=== PATIENT | female | born 1955 | race Caucasian/White ===

== ENCOUNTER → 2016-11-24 | Outpatient (CLI) | payer OTHER ==
[~2016-11-24] MED LIST: CHOL200010 PO; CITA10TA8 PO; CITA20TA4 PO; CMD5 PO; ENOX60IN SQ; LANS15CA27 PO; LVNIS80 SC; PANT40TA PO; PROP10TA54 PO; PROP10TA7 PO; PRT40 PO; WARF5TAB90 PO; WARF6TAB PO; WARF7.5T PO; [UNRECOGNIZED DRUG - CODE] PO; [UNRECOGNIZED DRUG - CODE] PO; [UNRECOGNIZED DRUG - CODE] PO
--- NOTE | 2016-11-24 11:39 | DIAGNOSTIC IMAGING REPORT ---
Limited splenic ultrasound (SPLEEN) ABD LTD CLINICAL HISTORY: COMPARATIVE SPLENIC MEASUREMENT splenic enlargement TECHNIQUE: Ultrasound COMPARISON STUDY: 09/11/2016 FINDINGS: Subtle increase in splenic measurement. Current splenic dimension is 30 cm. This is increased from 24 cm. Internal matrix appears unremarkable. There are no abnormal perisplenic fluid collections. IMPRESSION: Splenomegaly somewhat progressive from the prior study. Current maximum linear dimension is 30 cm increased from 24 cm Electronically signed by: Kevin Dobbs M.D. 11/24/2016 11:38 AM Dictated Date/Time: 11/24/2016 11:36 AM
== END | disposition home or self-care (01) ==
LOC: C.ULTR 11:09
PROVIDERS: ATTEND Internal Medicine Hematology & Oncology
DX: D47.1 Chronic myeloproliferative disease (principal); R16.1 Splenomegaly, not elsewhere classified

== ENCOUNTER 2016-11-28 16:12 | Inpatient (IN) | payer OTHER ==
[~2016-11-28] VITALS: Ht 162.6 cm; Wt 68.0 kg
[~2016-11-28 16:12] MED LIST changes: -CITA20TA4 PO; -CMD5 PO; -ENOX60IN SQ; -LVNIS80 SC; -PANT40TA PO; -PROP10TA54 PO; -PROP10TA7 PO; -PRT40 PO; -WARF7.5T PO; -[UNRECOGNIZED DRUG - CODE] PO; -[UNRECOGNIZED DRUG - CODE] PO
[2016-11-28] MEDS ORDERED: OPTIRAY 320 IV PRN (16:45)
[2016-11-28 17:09] LABS: MEAN CORPUSCULAR HGB CONC 32.3 g/dl (32-36)
[2016-11-28 17:18] LABS: URINE APPEARANCE CLEAR (CLEAR); URINE BILIRUBIN NEG (NEG); URINE COLOR YELLOW; URINE NITRITE NEG (NEG); URINE SPECIFIC GRAVITY 1.004 (1.000-1.030); UROBILINOGEN NEG (NEG); ZZUR CULT IF INDIC CLEAN CATCH NO
[2016-11-28 17:21] LABS: INR 2.7 (0.9-1.1); PARTIAL THROMBOPLASTIN RATIO 1.5; PROTHROMBIN TIME (PATIENT) 29.9 SECONDS (9.0-12.0)
[2016-11-28 17:26] LABS: BUN/CREATININE RATIO 32.9 (10-20); CALCIUM 8.6 mg/dl (8.5-10.1); CREATININE 0.84 mg/dl (0.60-1.20)
[2016-11-28 17:32] LABS: HEMATOCRIT 32.9 % (37-47); MEAN CORPUSCULAR HEMOGLOBIN 27.4 pg (25-34); MEAN PLATELET VOLUME 9.8 fL (7.4-10.4); PLATELET COUNT 99 K/uL (130-400); RED BLOOD COUNT 3.87 M/uL (4.2-5.4); WHITE BLOOD COUNT 10.35 K/uL (4.8-10.8)
[2016-11-28 17:39] LABS: MANUAL MICROSCOPIC REQUIRED? NO; REVIEW REQ? NO
--- NOTE | 2016-11-28 17:56 | DIAGNOSTIC IMAGING REPORT ---
CHEST ONE VIEW PORTABLE HISTORY: Shortness of breath. COMPARISON: Chest 04/26/2009. FINDINGS: Small focal peripheral airspace opacity within the right upper lobe. The left lung is clear. The heart is normal in size. No pleural effusions. No pneumothorax. IMPRESSION: Small focal peripheral airspace opacity within the right upper lobe. This could be due to overlapping soft tissues. This will be further assessed on the same day chest CT. Electronically signed by: Benji Salcedo M.D. 11/28/2016 5:54 PM Dictated Date/Time: 11/28/2016 5:53 PM
--- NOTE | 2016-11-28 18:02 | DIAGNOSTIC IMAGING REPORT ---
HEAD CT NONCONTRAST CT DOSE: HISTORY: Headache, hx multiple myeloma TECHNIQUE: Multiaxial CT images of the head were performed without the use of intravenous contrast. Automated exposure control was utilized for this study. Comparison: None. Findings: The paranasal sinuses and mastoid air cells are clear. The calvarium and skull base are intact. The ventricles and sulci are within normal limits. There is no mass, hematoma, midline shift, or acute infarct. Impression: No acute intracranial abnormality. Electronically signed by: Benji Salcedo M.D. 11/28/2016 6:00 PM Dictated Date/Time: 11/28/2016 5:58 PM
--- NOTE | 2016-11-28 18:16 | DIAGNOSTIC IMAGING REPORT ---
CHEST CTA for PULMONARY ARTERIES CT DOSE: HISTORY: Shortness of breath. TECHNIQUE: Multiaxial CT images of the chest were performed following the intravenous administration of contrast to evaluate the pulmonary arteries. Maximal intensity projection images were also obtained. COMPARISON STUDY: Chest CTA 06/18/2010. FINDINGS: There is a normal caliber thoracic aorta with no evidence for dissection. Trace pericardial effusion, unchanged. The heart is normal in size. No pleural effusions. 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 Otherwise, the remaining pulmonary arteries are patent with no evidence for pulmonary embolus. Increased sclerosis seen throughout the visualized osseous structures consistent with the patient's history of myelofibrosis. There are also multiple scattered subcentimeter lytic lesions seen throughout the visualized osseous structures. This is also progressed. Stable partially calcified nodule within the left breast which measures 12 mm. The long-term stability favors a fibroadenoma. No mediastinal or hilar lymphadenopathy. No pneumothorax. There are multiple scattered patchy and nodular airspace opacities seen within the right lung and left upper lobe. Dominant focal area of peripheral consolidation within the right upper lobe measures 5.6 cm. Dominant nodule within the right lower lobe on image 130 measures 17 mm. IMPRESSION: 1. No evidence for acute pulmonary embolus. There is chronic occlusion of the left lower lobe pulmonary arteries, unchanged. 2. Multifocal patchy and nodular airspace opacities seen within the right lung and left upper lobe as described above. This favors an infectious process. However, recommend one to [address] follow-up to ensure resolution. Specifically, the scattered nodules require follow-up to ensure resolution or stability. 3. Progression of the diffuse bony sclerosis and multiple lytic lesions. This may represent a combination of myelofibrosis and multiple myeloma. Electronically signed by: Benji Salcedo M.D. 11/28/2016 6:15 PM Dictated Date/Time: 11/28/2016 6:04 PM
--- NOTE | 2016-11-28 18:22 | DIAGNOSTIC IMAGING REPORT ---
ABDOMEN AND PELVIS CT WITH IV CONTRAST CT DOSE: 1229.10 mGy.cm HISTORY: Epigastric pain, hx antrum ulcer, splenomegaly TECHNIQUE: Multiaxial CT images of the abdomen and pelvis were performed following the use of intravenous contrast. COMPARISON STUDY: Abdomen and pelvis CT 09/17/2015. FINDINGS: No pneumoperitoneum. No pneumatosis. There is again noted diffuse sclerosis and scattered lytic lesions seen throughout the visualized osseous structures. This is similar to the prior study. Massive splenomegaly has slightly improved. No hepatic masses. The gallbladder, pancreas, adrenal glands, and kidneys are unremarkable. No hydronephrosis. No retroperitoneal lymphadenopathy. 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 Mild fat stranding surrounding the inferior mesenteric artery is not significant changed. The bladder, uterus, and bilateral adnexa are unremarkable. No bowel wall thickening or obstruction. Normal appendix. IMPRESSION: 1. Slight improvement in the massive splenomegaly. 2. Otherwise, no significant change compared the prior study with additional findings as described above. 3. No bowel wall thickening or obstruction. 4. Normal appendix. 5. Diffuse skeletal sclerosis with scattered lucent lesions are again noted. This is consistent with mild fibrosis. Electronically signed by: Benji Salcedo M.D. 11/28/2016 6:21 PM Dictated Date/Time: 11/28/2016 6:15 PM
[2016-11-28] MEDS ORDERED: SODIUM CHLORIDE 0.9% 1000ML 1,000 ML IV STA ×2 (18:35)
[2016-11-28 18:57] LABS: ANISOCYTOSIS PRESENT; PLT ESTIMATE DECREASED; POLYCHROMASIA 1+; TEAR DROP CELLS 1+
[2016-11-28] MEDS ORDERED: PANTOprazole INJ 80 MG in DEXTROSE 5% 100ML IV ONE (19:00)
[2016-11-28] MEDS ORDERED: PANTOprazole INJ 40 MG in DEXTROSE 5% 100ML IV SCH (19:15)
[2016-11-28 19:45] LABS: BASO ABS # 0.18 K/uL (0-0.2); BASOPHIL % 1.7 %; COMPLETE YES; LYMPH ABS # 1.35 K/uL (1.2-3.4); META ABS # 0.36 K/uL (0-0); METAMYELOCYTE % 3.5 %; MYELOCYTE % 3.5 %; NEUTROPHILS % 73.9 %
[2016-11-28] MEDS ORDERED: PIPERACILLIN/TAZOBACTAM 4.5 GM/100ML D5W IV STA (19:51)
[2016-11-28] MEDS ORDERED: PHYTONADIONE INJ 10 MG in SODIUM CHLORIDE 0.9% 50ML 50 ML IV STA (19:51)
[2016-11-28] MEDS ORDERED: LEVAQUIN 750MG / 150ML D5W IV STA (19:51)
--- NOTE | 2016-11-28 20:13 | EMERGENCY ROOM VISIT NOTE ---
ED Visit Note First contact with patient: 16:20 Supervised PA. Patient admitted.
[2016-11-28] MEDS ORDERED: ACETAMINOPHEN 325 MG TAB PO PRN (20:15)
[2016-11-28] MEDS ORDERED: ZOLPIDEM TARTRATE 5 MG TAB PO PRN (20:15)
[2016-11-28] MEDS ORDERED: VANCOMYCIN INJ 1,600 MG in SODIUM CHLORIDE 0.9% 500ML 500 ML IV ONE (20:30)
[2016-11-28] MEDS ORDERED: ACETAMINOPHEN IV 100 ML IV PRN ×2 (20:30→22:30)
[2016-11-28] MEDS ORDERED: LORAZEPAM 2 MG/ML 1 ML VIAL IV PRN (20:30)
[2016-11-28] MEDS ORDERED: ONDANSETRON INJ 2 MG/ML 2 ML VIAL IV PRN (20:30)
[2016-11-28] MEDS ORDERED: DiphenhydrAMINE HCL 50 MG/ML VIAL IV PRN ×2 (20:30)
[2016-11-28] MEDS ORDERED: PIPERACILL/TAZOBAC CONSULT ACTIVE PRN (20:45)
[2016-11-28] MEDS ORDERED: LORAZEPAM INJ 0.5 MG in SYRINGE 0.75 ML IV PRN (20:45)
[2016-11-28] MEDS ORDERED: VANCOMYCIN CONSULT ACTIVE PRN (20:45)
--- NOTE | 2016-11-28 20:47 | Pharmacy Progress Note ---
Pharmacy Antibiotic Consult Date of Service: Nov 28, 2016. Pharmacy Dosing Scope Pharmacy is consulted to initiate vancomycin and zosyn IV dosing therapy, order appropriate labs and adjust drug dose/frequency. Subjective The patient is a 61 year old female admitted on 11-28. Objective Height (Feet): 5 Height (Inches): 4.00 Weight (Kilograms): 67.900 Lab Results (24hrs): Laboratory Tests Test 11/28/16 16:56 BUN/Creatinine Ratio 32.9 Blood Urea Nitrogen 28 mg/dl Creatinine 0.84 mg/dl White Blood Count 10.35 K/uL Red Blood Count 3.87 M/uL Hemoglobin 10.6 g/dL Hematocrit 32.9 % Mean Corpuscular Volume 85.0 fL Mean Corpuscular Hemoglobin 27.4 pg Mean Corpuscular Hemoglobin Concent 32.3 g/dl Platelet Count 99 K/uL Mean Platelet Volume 9.8 fL Assessment & Plan Patient started on vancomycin, zosyn and levaquin (not consult) for possible pulmonary infection. Vancomycin: * LD of 1600 mg (~24 mg/kg) x 1 given in ED * Will start MD of 750 mg (~11 mg/kg) iv q 12 hrs to achieve an estimated trough ~19 mcg/ml (goal 15-20 mcg/ml for PNA) * Estimated kinetics: t1/2~ 12 hrs, ke ~0.06 hr-1, CrCl ~68 ml/min Zosyn: * 4.5 gm iv x 1 given in ED; will order 3.375 gm iv q 8 hrs which is appropriate for CrCl>20 ml/min (actual 68 ml/min) Pharmacy will continue to follow and will adjust dose/frequency as necessary. Thank you
[2016-11-28] MEDS: IPRATROPIUM BROMIDE NEB SOLN 0.02% 2.5 ML VIAL INH SCH (21:00)
[2016-11-28] MEDS ORDERED: LEVALBUTEROL/IPRATROPIUM NEB INH SCH (21:00)
[2016-11-28] MEDS: LEVALBUTEROL 1.25MG/0.5ML NEB INH SCH (21:00)
[2016-11-28] MEDS ORDERED: IPRATROPIUM BROMIDE NEB SOLN 0.02% 2.5 ML VIAL INH PRN (21:00)
[2016-11-28] MEDS ORDERED: LEVALBUTEROL 1.25MG/0.5ML NEB INH PRN (21:00)
[2016-11-28 21:30] VITALS: BP 122/71; PULSE 89; TEMP 36.6; O2SAT 96; Ht 162.6 cm; Wt 68.0 kg
[2016-11-28] MEDS: NSS + 20MEQ KCL 1000ML 1,000 ML IV SCH (22:01)
[2016-11-28 23:18] LABS: HEMATOCRIT 28.5 % (37-47)
[2016-11-28 23:30] VITALS: BP 135/69; PULSE 93; TEMP 37.5; O2SAT 97
[2016-11-28] MEDS: PANTOprazole INJ 40 MG in DEXTROSE 5% 100ML IV SCH (23:47)
[2016-11-29] VITALS (9 sets, daily range): BP systolic 95–123; BP diastolic 61–68; PULSE 84–100; TEMP 36.3–37.1; O2SAT 93–98
--- NOTE | 2016-11-29 00:46 | History and Physical ---
History & Physical Date & Time of Service: Nov 29, 2016 at 00:34 Chief Complaint: Pneumonia, Upper Gi Bleed Primary Care Physician: Shira Yarbrough MD History of Present Illness Source: patient The patient is a 61-year-old female on long-term anticoagulation for pulmonary emboli who presents to emergency department with complaint of passage of coffee grounds type stool pattern. She does report being more short of breath with exertion over the past few weeks. She denies any abdominal pain or rectal pain , and has not had any bright red blood per rectum or hematemesis. She does have a history of gastric ulcers in the past. She denies any NSAID use. Social History Smoking Status: Never Smoker Smokeless Tobacco Use: No Alcohol Use: none Drug Use: none Marital Status: Housing status: lives with family Occupational Status: employed Immunizations History of Influenza Vaccine: Yes History of Tetanus Vaccine?: Yes History of Pneumococcal: Yes History of Hepatitis B Vaccine: No Multi-Drug Resistant Organisms History of MDRO: No Allergies Coded Allergies: No Known Allergies (Verified , 11/28/16) Home Medications Scheduled Cholecalciferol (Vitamin D), 2,000 UNIT PO QPM Citalopram Hydrobromide (Celexa), 15 MG PO QPM Lansoprazole (Prevacid), 15 MG PO QPM Ruxolitinib Phosphate (Jakafi), 1 TAB PO BID Warfarin Sodium (Coumadin), 6 MG PO 6XWK Warfarin Sodium (Coumadin), 7 MG PO 1xweek Review of Systems The patient denies shortness of breath, cough, lower extremity swelling, vision change, hearing change, sore throat, fevers, chills, sweats, weight change, nausea, vomiting, abdominal pain, pelvic pain, blood in urine, dysuria, urinary frequency or urgency, lightheadedness, dizziness, headache, memory loss, rash, abnormal bruising, imbalance, focal or generalized weakness, numbness or tingling in arms or legs, arthralgias or myalgias, back or neck pain, night sweats, or allergy symptoms. The review of systems is otherwise negative other than for that already noted above, and at least 10 systems have been reviewed. Physical Exam Vital Signs Date Time Temp Pulse Resp B/P Pulse Ox O2 Delivery O2 Flow Rate FiO2 11/28/16 23:30 37.5 93 20 135/69 97 Room Air 11/28/16 21:30 36.6 89 18 122/71 96 Room Air 11/28/16 20:30 92 18 125/75 94 Room Air 11/28/16 19:23 93 16 123/62 97 Room Air 11/28/16 17:46 94 20 141/71 94 11/28/16 16:52 95 11/28/16 16:14 36.5 108 20 135/78 96 Room Air The patient is awake, well-developed and adequately nourished, alert and oriented 3, normocephalic and atraumatic, lying in bed and in no acute distress. HEENT--PERRL, EOMI, mucous membranes and oropharynx dry. Neck--supple, no JVD or bruits, thyroid normal, trachea midline, no adenopathy. Heart--normal S1 and S2, no extra beats, no murmurs, rubs or gallops. Lungs--clear bilaterally with good air movement, no respiratory distress, no accessory muscle use. Abdomen--normal bowel sounds and soft, nontender and nondistended, no hernias or masses, no organomegaly. Extremities--no cyanosis, clubbing or edema. There are good distal pulses b/l. Dermatologic--normal skin turgor, normal color, warm and dry, no abnormal lymph nodes, no rash. Neurologic--cranial nerves II through XII grossly intact, motor and sensory examination normal. Rheumatologic--normal range of motion, nontender, muscles and joints. Psychiatric--normal affect. Diagnostics Laboratory Results Results Past 24 Hours Test 11/28/16 16:25 11/28/16 16:56 11/28/16 17:02 11/28/16 22:55 Range/Units Urine Color YELLOW Urine Appearance CLEAR CLEAR Urine pH 5.0 4.5-7.5 Urine Specific [place] 1.004 1.000-1.030 Urine Protein NEG NEG Urine Glucose (UA) NEG NEG Urine Ketones NEG NEG Urine Occult Blood NEG NEG Urine Nitrite NEG NEG Urine Bilirubin NEG NEG Urine Urobilinogen NEG NEG Urine Leukocyte Esterase NEG NEG White Blood Count 10.35 4.8-10.8 K/uL Red Blood Count 3.87 4.2-5.4 M/uL Hemoglobin 10.6 9.2 12.0-16.0 g/dL Hematocrit 32.9 28.5 37-47 % Mean Corpuscular Volume 85.0 80-100 fL Mean Corpuscular Hemoglobin 27.4 25-34 pg Mean Corpuscular Hemoglobin Concent 32.3 32-36 g/dl Platelet Count 99 130-400 K/uL Mean Platelet Volume 9.8 7.4-10.4 fL RDW Standard Deviation 57.6 36.4-46.3 fL RDW Coefficient of Variation 18.9 11.5-14.5 % Nucleated RBC Absolute Count (auto) 0.51 0-0 K/uL Neutrophils % (Manual) 73.9 % Lymphocytes % (Manual) 13.0 % Monocytes % (Manual) 2.6 % Basophils % (Manual) 1.7 % Metamyelocytes % 3.5 % Myelocytes % 3.5 % Promyelocytes % 0.9 % Blast Cells % 0.9 % Nucleated Red Blood Cells % 4.8 % Neutrophils # (Manual) 7.65 1.4-6.5 K/uL Total Absolute Neutrophils 7.65 1.4-6.5 K/uL Lymphocytes # (Manual) 1.35 1.2-3.4 K/uL Total Absolute Lymphocytes 1.35 1.2-3.4 K/uL Monocytes # (Manual) 0.27 0.11-0.59 K/uL Basophils # (Manual) 0.18 0-0.2 K/uL Metamyelocytes # 0.36 0-0 K/uL Myelocytes # 0.36 0-0 K/uL Promyelocytes # 0.09 0-0 K/uL Blast Cells # 0.09 0-0 K/uL Platelet Estimate DECREASED Polychromasia 1+ Anisocytosis PRESENT Tear Drop Cells 1+ Prothrombin Time 29.9 9.0-12.0 SECONDS Prothromb Time International Ratio 2.7 0.9-1.1 Activated Partial Thromboplast Time 38.5 21.0-31.0 SECONDS Partial Thromboplastin Ratio 1.5 Sodium Level 141 136-145 mmol/L Potassium Level 4.0 3.5-5.1 mmol/L Chloride Level 107 98-107 mmol/L Carbon Dioxide Level 27 21-32 mmol/L Anion Gap 7.0 3-11 mmol/L Blood Urea Nitrogen 28 7-18 mg/dl Creatinine 0.84 0.60-1.20 mg/dl Est Creatinine Clear Calc Drug Dose 68.3 ml/min Estimated GFR () 88.2 Estimated GFR (Non- 76.1 BUN/Creatinine Ratio 32.9 10-20 Random Glucose 94 70-99 mg/dl Calcium Level 8.6 8.5-10.1 mg/dl Total Bilirubin 1.2 0.2-1 mg/dl Aspartate Amino Transf (AST/SGOT) 31 15-37 U/L Alanine Aminotransferase (ALT/SGPT) 27 12-78 U/L Alkaline Phosphatase 238 45-117 U/L Total Protein 6.9 6.4-8.2 gm/dl Albumin 3.5 3.4-5.0 gm/dl Globulin 3.4 2.5-4.0 gm/dl Albumin/Globulin Ratio 1.0 0.9-2 Lipase 204 73-393 U/L Bedside D-Dimer 30 0-450 ng/mlFEU Bedside Troponin I 0.000 0-0.045 ng/ml WW-Nze-Z-Type Natriuretic Peptide 328 0-900 pg/ml Total Creatine Kinase 28 26-192 U/L Creatine Kinase MB < 0.5 0.5-3.6 ng/ml Creatine Kinase MB Ratio 0-3.0 Troponin I < 0.015 0-0.045 ng/ml Diagnostic Radiology Patient Name: SANTA ANNA Unit Number: [id number] Dictated: 11/28/161757 Transcribed: 11/28/161757 [facility] Printed Date/Time: [~ rep prt dt]/[~ rep prt tm] [~ rep ct labl] - [~ rep ct ivnm] [facility] [place] [place] [address] Dictated: 11/28/161757 Transcribed: 11/28/161757 [facility] Printed Date/Time: [~ rep prt dt]/[~ rep prt tm] [~ rep ct labl] - [~ rep ct ivnm] CT DOSE: HISTORY: Headache, hx multiple myeloma TECHNIQUE: Multiaxial CT images of the head were performed without the use of intravenous contrast. Automated exposure control was utilized for this study. Comparison: None. Findings: The paranasal sinuses and mastoid air cells are clear. The calvarium and skull base are intact. The ventricles and sulci are within normal limits. There is no mass, hematoma, midline shift, or acute infarct. Impression: No acute intracranial abnormality. Electronically signed by: Benji Salcedo M.D. 11/28/2016 6:00 PM Dictated Date/Time: 11/28/2016 5:58 PM The status of this report is Signed. Draft = Not yet reviewed or approved by Radiologist. Signed = Reviewed and approved by Radiologist. <AttendingPhy></AttendingPhy> <FamilyPhy>Manny Vergara D.O.</FamilyPhy> < PrimaryPhy>Shira Yarbrough MD</PrimaryPhy> <UnitNumber>[id number]</UnitNumber > <VisitNumber>[id number]</VisitNumber> <PatientName>SANAT ANNAY</ PatientName> <DateOfBirth>1955</DateOfBirth> <Location>[facility]</Location> < ServiceDate>11/28/16</ServiceDate> <MNE>ESINDI</MNE> <OrderingPhy>Sravan Silva PA-C</OrderingPhy> <OrderingPhyMNE>f rep ord dr toney</OrderingPhyMNE> < DictatingPhyMNE>f rep dict dr toney</DictatingPhyMNE> <CCListMNE>f rep ct mne</ CCListMNE> <AdmittingPhyMNE>f pt admit dr toney</AdmittingPhyMNE> <AttendingPhyMNE >f pt attend dr toney</AttendingPhyMNE> <ConsultingPhyMNE>f pt consult dr toney</ConsultingPhyMNE> <FamilyPhyMNE>f pt fam dr toney</FamilyPhyMNE> <OtherPhyMNE>f pt other dr toney</OtherPhyMNE> < PrimaryPhyMNE>f pt prim care dr toney</PrimaryPhyMNE> <ReferringPhyMNE>f pt referring dr toney</ReferringPhyMNE> Patient Name: GRETCHEN ANNAYUE LEDESMA Unit Number: [id number] Dictated: 11/28/161803 Transcribed: 11/28/161803 [facility] Printed Date/Time: [~ rep prt dt]/[~ rep prt tm] [~ rep ct labl] - [~ rep ct ivnm] [facility] [place] [place] [address] Dictated: 11/28/161803 Transcribed: 11/28/161803 [facility] Printed Date/Time: [~ rep prt dt]/[~ rep prt tm] [~ rep ct labl] - [~ rep ct ivnm] DIAGNOSTIC IMAGING [~ rep ct add3]] CHEST CTA for PULMONARY ARTERIES CT DOSE: HISTORY: Shortness of breath. TECHNIQUE: Multiaxial CT images of the chest were performed following the intravenous administration of contrast to evaluate the pulmonary arteries. Maximal intensity projection images were also obtained. COMPARISON STUDY: Chest CTA 06/18/2010. FINDINGS: There is a normal caliber thoracic aorta with no evidence for dissection. Trace pericardial effusion, unchanged. The heart is normal in size. No pleural effusions. 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 Otherwise, the remaining pulmonary arteries are patent with no evidence for pulmonary embolus. Increased sclerosis seen throughout the visualized osseous structures consistent with the patient's history of myelofibrosis. There are also multiple scattered subcentimeter lytic lesions seen throughout the visualized osseous structures. This is also progressed. Stable partially calcified nodule within the left breast which measures 12 mm. The long-term stability favors a fibroadenoma. No mediastinal or hilar lymphadenopathy. No pneumothorax. There are multiple scattered patchy and nodular airspace opacities seen within the right lung and left upper lobe. Dominant focal area of peripheral consolidation within the right upper lobe measures 5.6 cm. Dominant nodule within the right lower lobe on image 130 measures 17 mm. IMPRESSION: 1. No evidence for acute pulmonary embolus. There is chronic occlusion of the left lower lobe pulmonary arteries, unchanged. 2. Multifocal patchy and nodular airspace opacities seen within the right lung and left upper lobe as described above. This favors an infectious process. However, recommend one to [address] follow-up to ensure resolution. Specifically, the scattered nodules require follow-up to ensure resolution or stability. 3. Progression of the diffuse bony sclerosis and multiple lytic lesions. This may represent a combination of myelofibrosis and multiple myeloma. Electronically signed by: Benji Salcedo M.D. 11/28/2016 6:15 PM Dictated Date/Time: 11/28/2016 6:04 PM The status of this report is Signed. Draft = Not yet reviewed or approved by Radiologist. Signed = Reviewed and approved by Radiologist. <AttendingPhy></AttendingPhy> <FamilyPhy>Manny Vergara D.O.</FamilyPhy> < PrimaryPhy>Shira Yarbrough MD</PrimaryPhy> <UnitNumber>[id number]</UnitNumber > <VisitNumber>[id number]</VisitNumber> <PatientName>SANTA ANNA</ PatientName> <DateOfBirth>1955</DateOfBirth> <Location>[facility]</Location> < ServiceDate>11/28/16</ServiceDate> <MNE>ESINDI</MNE> <OrderingPhy>Sravan Silva PA-C</OrderingPhy> <OrderingPhyMNE>f rep ord dr toney</OrderingPhyMNE> < DictatingPhyMNE>f rep dict dr toney</DictatingPhyMNE> <CCListMNE>f rep ct mne</ CCListMNE> <AdmittingPhyMNE>f pt admit dr toney</AdmittingPhyMNE> <AttendingPhyMNE >f pt attend dr toney</AttendingPhyMNE> <ConsultingPhyMNE>f pt consult dr toney</ConsultingPhyMNE> <FamilyPhyMNE>f pt fam dr toney</FamilyPhyMNE> <OtherPhyMNE>f pt other dr toney</OtherPhyMNE> < PrimaryPhyMNE>f pt prim care dr toney</PrimaryPhyMNE> <ReferringPhyMNE>f pt referring dr toney</ReferringPhyMNE> Patient Name: SANTA ANNA Unit Number: [id number] Dictated: 11/28/161752 Transcribed: 11/28/161752 [facility] Printed Date/Time: [~ rep prt dt]/[~ rep prt tm] [~ rep ct labl] - [~ rep ct ivnm] [facility] [place] [place] [address] Dictated: 11/28/161752 Transcribed: 11/28/16 175 [facility] Printed Date/Time: [~ rep prt dt]/[~ rep prt tm] [~ rep ct labl] - [~ rep ct ivnm] CHEST ONE VIEW PORTABLE HISTORY: Shortness of breath. COMPARISON: Chest 04/26/2009. FINDINGS: Small focal peripheral airspace opacity within the right upper lobe. The left lung is clear. The heart is normal in size. No pleural effusions. No pneumothorax. IMPRESSION: Small focal peripheral airspace opacity within the right upper lobe. This could be due to overlapping soft tissues. This will be further assessed on the same day chest CT. Electronically signed by: Benji Salcedo M.D. 11/28/2016 5:54 PM Dictated Date/Time: 11/28/2016 5:53 PM The status of this report is Signed. Draft = Not yet reviewed or approved by Radiologist. Signed = Reviewed and approved by Radiologist. <AttendingPhy></AttendingPhy> <FamilyPhy>Manny Vergara D.O.</FamilyPhy> < PrimaryPhy>Shira Yarbrough MD</PrimaryPhy> <UnitNumber>[id number]</UnitNumber > <VisitNumber>[id number]</VisitNumber> <PatientName>SANTA ANNA</ PatientName> <DateOfBirth>1955</DateOfBirth> <Location>[facility]</Location> < ServiceDate>11/28/16</ServiceDate> <MNE>ESINDI</MNE> <OrderingPhy>Sravan Silva PA-C</OrderingPhy> <OrderingPhyMNE>f rep ord dr toney</OrderingPhyMNE> < DictatingPhyMNE>f rep dict dr toney</DictatingPhyMNE> <CCListMNE>f rep ct [place]</ CCListMNE> <AdmittingPhyMNE>f pt admit dr toney</AdmittingPhyMNE> <AttendingPhyMNE >f pt attend dr toney</AttendingPhyMNE> <ConsultingPhyMNE>f pt consult dr toney</ConsultingPhyMNE> <FamilyPhyMNE>f pt fam dr toney</FamilyPhyMNE> <OtherPhyMNE>f pt other dr toney</OtherPhyMNE> < PrimaryPhyMNE>f pt prim care dr toney</PrimaryPhyMNE> <ReferringPhyMNE>f pt referring dr toney</ReferringPhyMNE> Patient Name: SANTA ANNA Unit Number: [id number] Dictated: 11/28/161814 Transcribed: 11/28/161814 [facility] Printed Date/Time: [~ rep prt dt]/[~ rep prt tm] [~ rep ct labl] - [~ rep ct ivnm] [facility] [place] [place] [address] Dictated: 11/28/161814 Transcribed: 11/28/161814 [facility] Printed Date/Time: [~ rep prt dt]/[~ rep prt tm] [~ rep ct labl] - [~ rep ct ivnm] ABDOMEN AND PELVIS CT WITH IV CONTRAST CT DOSE: 1229.10 mGy.cm HISTORY: Epigastric pain, hx antrum ulcer, splenomegaly TECHNIQUE: Multiaxial CT images of the abdomen and pelvis were performed following the use of intravenous contrast. COMPARISON STUDY: Abdomen and pelvis CT 09/17/2015. FINDINGS: No pneumoperitoneum. No pneumatosis. There is again noted diffuse sclerosis and scattered lytic lesions seen throughout the visualized osseous structures. This is similar to the prior study. Massive splenomegaly has slightly improved. No hepatic masses. The gallbladder, pancreas, adrenal glands, and kidneys are unremarkable. No hydronephrosis. No retroperitoneal lymphadenopathy. 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 Mild fat stranding surrounding the inferior mesenteric artery is not significant changed. The bladder, uterus, and bilateral adnexa are unremarkable. No bowel wall thickening or obstruction. Normal appendix. IMPRESSION: 1. Slight improvement in the massive splenomegaly. 2. Otherwise, no significant change compared the prior study with additional findings as described above. 3. No bowel wall thickening or obstruction. 4. Normal appendix. 5. Diffuse skeletal sclerosis with scattered lucent lesions are again noted. This is consistent with mild fibrosis. Electronically signed by: Benji Salcedo M.D. 11/28/2016 6:21 PM Dictated Date/Time: 11/28/2016 6:15 PM The status of this report is Signed. Draft = Not yet reviewed or approved by Radiologist. Signed = Reviewed and approved by Radiologist. <AttendingPhy></AttendingPhy> <FamilyPhy>Manny Vergara D.O.</FamilyPhy> < PrimaryPhy>Shira Yarbrough MD</PrimaryPhy> <UnitNumber>[id number]</UnitNumber > <VisitNumber>[id number]</VisitNumber> <PatientName>SANTA ANNA</ PatientName> <DateOfBirth>1955</DateOfBirth> <Location>[facility]</Location> < ServiceDate>11/28/16</ServiceDate> <MNE>ESINDI</MNE> <OrderingPhy>Sravan Silva PA-C</OrderingPhy> <OrderingPhyMNE>f rep ord dr toney</OrderingPhyMNE> < DictatingPhyMNE>f rep dict dr toney</DictatingPhyMNE> <CCListMNE>f rep ct mne</ CCListMNE> <AdmittingPhyMNE>f pt admit dr toney</AdmittingPhyMNE> <AttendingPhyMNE >f pt attend dr toney</AttendingPhyMNE> <ConsultingPhyMNE>f pt consult dr toney</ConsultingPhyMNE> <FamilyPhyMNE>f pt fam dr toney</FamilyPhyMNE> <OtherPhyMNE>f pt other dr toney</OtherPhyMNE> < PrimaryPhyMNE>f pt prim care dr toney</PrimaryPhyMNE> <ReferringPhyMNE>f pt referring dr toney</ReferringPhyMNE> EKG EKG shows normal sinus rhythm at 95 bpm, with nonspecific ST-T changes in leads V3 through V5. Impression Assessment and Plan Pneumonia of both lower lobes--we'll start patient on vancomycin IV per renal dosing, Zosyn 3.375 mg IV every 8 hours, levofloxacin 500 mg IV daily, nasal cannula 2 L O2 titrated to keep pulse ox greater than or equal to 92%, and Xopenex with Atrovent nebulizers to use every 6 hours while awake and every 2 hours when necessary. Upper GI bleed with history of gastric ulcers--patient will be admitted to the telemetry unit for serial H&H's, nothing by mouth status, continue the Protonix drip started in the emergency department. We'll consult Dr. Vitaly Blank for possible EGD. We will need to reverse INR. Pulmonary emboli/chronic anticoagulation with warfarin--her target INR has always been in the 2.5-3.5 range, with present value being 2.7. She'll be given vitamin K 10 mg IV, and we'll repeat INR. Multiple myeloma--follows with Dr. Alfaro. Hold Jacafi 5 mg by mouth twice a day while mouth status until fully assessed. CT scan does show possibility of lytic lesions, we'll consult Dr. Alfaro for his assessment. Abnormal EKG with normal cardiac enzymes--we'll follow patient while on telemetry for serial cardiac enzymes, cardiac rhythm monitoring and order a 2-D echocardiogram with Dopplers. Depression/anxiety--hold Celexa 10 mg by mouth daily while nothing by mouth, and will have available lorazepam 0.5 mg IV every 4 hours when necessary. Level of Care Telemetry Advanced Directives Existing Advance Directive: No Existing Living Will: No Existing Power of Electronic Equipment Trades Worker: No VTE Prophylaxis VTE Risk Assessment Done? Y/N: Yes Risk Level: Moderate
--- NOTE | 2016-11-29 01:25 | EMERGENCY ROOM VISIT NOTE ---
History First contact with patient: 16:20 Chief Complaint: GI ASSESSMENT Stated Complaint: PNEUMONIA, UPPER GI BLEED Nursing Triage Summary: pt c/o lightheadedness, "black coffee ground stools", abd discomfort, headache. Ongoing for 2 days. Hx of EGD and Colonoscopy, pt reports they found an ulcer History of Present Illness The patient is a 61 year old female who presents to the Emergency Room via private vehicle accompanied by nephew with complaints of "pneumonia coffee- ground stool, nausea, weakness, headache". The patient states that she has had a headache for the past week in the frontal region as well as her neck. She also developed shortness of breath and weakness at that time. She states that yesterday she began with one episode of coffee-ground stools, and has had 4 episodes of coffee-ground stool today. There is associated dizziness and lightheadedness. The patient states that she called Dr. Vergara, who recommended she come to the emergency department. She states that she was seen Thursday for ultrasound of the spleen which was noted to be massively enlarged. She also has a history of PE. She does take Coumadin for the pulmonary embolism. She notes that she had the headache like she has today when she had the blood clots in the past which were in the back of her neck and lungs. She is on Coumadin 6 mg 6 days a week, and 7 mg on one of the days. There is associated nausea. She denies any chest pain, vomiting, bright red blood in the stool. Review of Systems A complete 10-point Review of Systems was discussed with the patient, with pertinent positives and negatives listed in the History of Present Illness. All remaining Review of Systems questions can be considered negative unless otherwise specified. Past Medical/Surgical History Medical Problems: (1) Pneumonia (2) Upper GI bleed Social History Smoking Status: Never Smoker Smokeless Tobacco Use: No Alcohol Use: none Drug Use: none Marital Status: Housing Status: lives with family Occupation Status: employed Current/Historical Medications Scheduled Cholecalciferol (Vitamin D), 2,000 UNIT PO QPM Citalopram Hydrobromide (Celexa), 15 MG PO QPM Lansoprazole (Prevacid), 15 MG PO QPM Ruxolitinib Phosphate (Jakafi), 1 TAB PO BID Warfarin Sodium (Coumadin), 6 MG PO 6XWK Warfarin Sodium (Coumadin), 7 MG PO 1xweek Allergies Coded Allergies: No Known Allergies (Verified , 11/28/16) Physical Exam Vital Signs Date Time Temp Pulse Resp B/P Pulse Ox O2 Delivery O2 Flow Rate FiO2 11/28/16 19:23 93 16 123/62 97 Room Air 11/28/16 17:46 94 20 141/71 94 11/28/16 16:52 95 11/28/16 16:14 36.5 108 20 135/78 96 Room Air Pain Rating (0-10): 2.0 Physical Exam VITAL SIGNS - Vital signs and nursing notes were reviewed. GENERAL -61-year-old female appearing her stated age who is in no acute distress. Communicates well with provider and answers questions appropriately. SKIN - Without rashes. No petechial rashes. HEAD - NC/AT. EYES - Sclera anicteric. Palpebral conjunctiva pink and moist with no injection noted. EARS - No deformities of external structures noted on gross examination bilaterally. NOSE - Midline and without cyanosis. No epistaxis or purulent drainage noted. MOUTH/OROPHARYNX - Without perioral cyanosis. NECK - Neck with FROM. No meningismus. LUNGS - Chest wall symmetric without accessory muscle use, intercostals retractions, or central cyanosis. Normal vesicular breath sounds CTA B/L. No wheezes, rales, or rhonchi appreciated. CARDIAC - RRR with S1/S2. No murmur, rubs, or gallops appreciated. ABDOMEN - Abdominal contour without pulsations or visible masses. BS normoactive all four quadrants. There is a palpable mass in left upper quadrant consistent with splenomegaly, care was taken during palpation so as to not injured this region. No tenderness or ascites noted. EXTREMITIES - No clubbing or peripheral cyanosis. No pretibial edema present. +5 /5 strength noted in UE/LE bilaterally. NEUROLOGIC - Cranial nerves II through XII grossly intact. Sensory intact to light touch throughout. PSYCH - Pt is very pleasant and interacts well with examiner. After verifying patient consent, rectal exam was obtained with female collar feller , who was the patient nurse present. Rectal exam was unremarkable, however Hemoccult was grossly positive. Medical Decision & Procedures ER Provider Diagnostic Interpretation: HEAD CT NONCONTRAST CT DOSE: HISTORY: Headache, hx multiple myeloma TECHNIQUE: Multiaxial CT images of the head were performed without the use of intravenous contrast. Automated exposure control was utilized for this study. Comparison: None. Findings: The paranasal sinuses and mastoid air cells are clear. The calvarium and skull base are intact. The ventricles and sulci are within normal limits. There is no mass, hematoma, midline shift, or acute infarct. Impression: No acute intracranial abnormality. Electronically signed by: Benji Salcedo M.D. 11/28/2016 6:00 PM Dictated Date/Time: 11/28/2016 5:58 PM CHEST CTA for PULMONARY ARTERIES CT DOSE: HISTORY: Shortness of breath. TECHNIQUE: Multiaxial CT images of the chest were performed following the intravenous administration of contrast to evaluate the pulmonary arteries. Maximal intensity projection images were also obtained. COMPARISON STUDY: Chest CTA 06/18/2010. FINDINGS: There is a normal caliber thoracic aorta with no evidence for dissection. Trace pericardial effusion, unchanged. The heart is normal in size. No pleural effusions. 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 Otherwise, the remaining pulmonary arteries are patent with no evidence for pulmonary embolus. Increased sclerosis seen throughout the visualized osseous structures consistent with the patient's history of myelofibrosis. There are also multiple scattered subcentimeter lytic lesions seen throughout the visualized osseous structures. This is also progressed. Stable partially calcified nodule within the left breast which measures 12 mm. The long-term stability favors a fibroadenoma. No mediastinal or hilar lymphadenopathy. No pneumothorax. There are multiple scattered patchy and nodular airspace opacities seen within the right lung and left upper lobe. Dominant focal area of peripheral consolidation within the right upper lobe measures 5.6 cm. Dominant nodule within the right lower lobe on image 130 measures 17 mm. IMPRESSION: 1. No evidence for acute pulmonary embolus. There is chronic occlusion of the left lower lobe pulmonary arteries, unchanged. 2. Multifocal patchy and nodular airspace opacities seen within the right lung and left upper lobe as described above. This favors an infectious process. However, recommend one to [address] follow-up to ensure resolution. Specifically, the scattered nodules require follow-up to ensure resolution or stability. 3. Progression of the diffuse bony sclerosis and multiple lytic lesions. This may represent a combination of myelofibrosis and multiple myeloma. Electronically signed by: Benji Salcedo M.D. 11/28/2016 6:15 PM Dictated Date/Time: 11/28/2016 6:04 PM CHEST ONE VIEW PORTABLE HISTORY: Shortness of breath. COMPARISON: Chest 04/26/2009. FINDINGS: Small focal peripheral airspace opacity within the right upper lobe. The left lung is clear. The heart is normal in size. No pleural effusions. No pneumothorax. IMPRESSION: Small focal peripheral airspace opacity within the right upper lobe. This could be due to overlapping soft tissues. This will be further assessed on the same day chest CT. Electronically signed by: Benji Salcedo M.D. 11/28/2016 5:54 PM Dictated Date/Time: 11/28/2016 5:53 PM ABDOMEN AND PELVIS CT WITH IV CONTRAST CT DOSE: 1229.10 mGy.cm HISTORY: Epigastric pain, hx antrum ulcer, splenomegaly TECHNIQUE: Multiaxial CT images of the abdomen and pelvis were performed following the use of intravenous contrast. COMPARISON STUDY: Abdomen and pelvis CT 09/17/2015. FINDINGS: No pneumoperitoneum. No pneumatosis. There is again noted diffuse sclerosis and scattered lytic lesions seen throughout the visualized osseous structures. This is similar to the prior study. Massive splenomegaly has slightly improved. No hepatic masses. The gallbladder, pancreas, adrenal glands, and kidneys are unremarkable. No hydronephrosis. No retroperitoneal lymphadenopathy. 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 Mild fat stranding surrounding the inferior mesenteric artery is not significant changed. The bladder, uterus, and bilateral adnexa are unremarkable. No bowel wall thickening or obstruction. Normal appendix. IMPRESSION: 1. Slight improvement in the massive splenomegaly. 2. Otherwise, no significant change compared the prior study with additional findings as described above. 3. No bowel wall thickening or obstruction. 4. Normal appendix. 5. Diffuse skeletal sclerosis with scattered lucent lesions are again noted. This is consistent with mild fibrosis. Electronically signed by: Benji Salcedo M.D. 11/28/2016 6:21 PM Dictated Date/Time: 11/28/2016 6:15 PM Laboratory Results 11/28/16 16:56 Red Blood Count 3.87, Mean Corpuscular Volume 85.0, Mean Corpuscular Hemoglobin 27.4, Mean Corpuscular Hemoglobin Concent 32.3, Mean Platelet Volume 9.8 11/28/16 16:56 Test 11/28/16 16:25 3/10/17 16:56 11/28/16 17:02 Urine Color YELLOW Urine Appearance CLEAR (CLEAR) Urine pH 5.0 (4.5-7.5) Urine Specific [place] 1.004 (1.000-1.030) Urine Protein NEG (NEG) Urine Glucose (UA) NEG (NEG) Urine Ketones NEG (NEG) Urine Occult Blood NEG (NEG) Urine Nitrite NEG (NEG) Urine Bilirubin NEG (NEG) Urine Urobilinogen NEG (NEG) Urine Leukocyte Esterase NEG (NEG) White Blood Count 10.35 K/uL (4.8-10.8) Red Blood Count 3.87 M/uL (4.2-5.4) Hemoglobin 10.6 g/dL (12.0-16.0) Hematocrit 32.9 % (37-47) Mean Corpuscular Volume 85.0 fL (80-100) Mean Corpuscular Hemoglobin 27.4 pg (25-34) Mean Corpuscular Hemoglobin Concent 32.3 g/dl (32-36) Platelet Count 99 K/uL (130-400) Mean Platelet Volume 9.8 fL (7.4-10.4) RDW Standard Deviation 57.6 fL (36.4-46.3) RDW Coefficient of Variation 18.9 % (11.5-14.5) Nucleated RBC Absolute Count (auto) 0.51 K/uL (0-0) Neutrophils % (Manual) 73.9 % Lymphocytes % (Manual) 13.0 % Monocytes % (Manual) 2.6 % Basophils % (Manual) 1.7 % Metamyelocytes % 3.5 % Myelocytes % 3.5 % Promyelocytes % 0.9 % Blast Cells % 0.9 % Nucleated Red Blood Cells % 4.8 % Neutrophils # (Manual) 7.65 K/uL (1.4-6.5) Total Absolute Neutrophils 7.65 K/uL (1.4-6.5) Lymphocytes # (Manual) 1.35 K/uL (1.2-3.4) Total Absolute Lymphocytes 1.35 K/uL (1.2-3.4) Monocytes # (Manual) 0.27 K/uL (0.11-0.59) Basophils # (Manual) 0.18 K/uL (0-0.2) Metamyelocytes # 0.36 K/uL (0-0) Myelocytes # 0.36 K/uL (0-0) Promyelocytes # 0.09 K/uL (0-0) Blast Cells # 0.09 K/uL (0-0) Platelet Estimate DECREASED Polychromasia 1+ Anisocytosis PRESENT Tear Drop Cells 1+ Prothrombin Time 29.9 SECONDS (9.0-12.0) Prothromb Time International Ratio 2.7 (0.9-1.1) Activated Partial Thromboplast Time 38.5 SECONDS (21.0-31.0) Partial Thromboplastin Ratio 1.5 Anion Gap 7.0 mmol/L (3-11) Est Creatinine Clear Calc Drug Dose 68.3 ml/min Estimated GFR () 88.2 Estimated GFR (Non- 76.1 BUN/Creatinine Ratio 32.9 (10-20) Calcium Level 8.6 mg/dl (8.5-10.1) Total Bilirubin 1.2 mg/dl (0.2-1) Aspartate Amino Transf (AST/SGOT) 31 U/L (15-37) Alanine Aminotransferase (ALT/SGPT) 27 U/L (12-78) Alkaline Phosphatase 238 U/L (45-117) Total Protein 6.9 gm/dl (6.4-8.2) Albumin 3.5 gm/dl (3.4-5.0) Globulin 3.4 gm/dl (2.5-4.0) Albumin/Globulin Ratio 1.0 (0.9-2) Lipase 204 U/L (73-393) Bedside D-Dimer 30 ng/mlFEU (0-450) Bedside Troponin I 0.000 ng/ml (0-0.045) QL-Fnn-C-Type Natriuretic Peptide 328 pg/ml (0-900) Date/Time Source Procedure Growth Status 11/28/16 00:00 Nasal MRSA DNA Surveillance Screen - Final Specimen Negative for MRSA by DNA Probe Complete Medications Administered Medications (Trade) Dose Ordered Sig/Keith Route Start Time Stop Time Status Last Admin Dose Admin Pantoprazole Sodium 1 ea 1 ea NOW STAT IV 11/28/16 18:35 11/28/16 18:38 DC 11/28/16 19:40 1 EA Sodium Chloride 1,000 ml @ 999 mls/hr Q1H1M STAT IV 11/28/16 18:35 11/28/16 19:35 DC 11/28/16 19:40 999 MLS/HR Pantoprazole Sodium 80 mg/ Dextrose 120 ml @ 480 mls/hr 1900 ONCE IV 11/28/16 19:00 11/28/16 19:14 DC 11/28/16 19:13 480 MLS/HR Pantoprazole Sodium 40 mg/ Dextrose 100 ml @ 20 mls/hr Q5H IV 11/28/16 19:15 11/29/16 00:14 DC 11/28/16 19:33 20 MLS/HR Phytonadione/ Sodium Chloride (Aqua-Mephyton Inj/Nss 50ml) 51 ml @ 102 mls/hr ONE STAT IV 11/28/16 19:51 11/28/16 20:20 DC 11/28/16 20:16 102 MLS/HR Levofloxacin (Levaquin / D5W) 750 mg NOW STAT IV 11/28/16 19:51 11/28/16 19:57 DC 11/28/16 21:42 750 MG Piperacillin Sod/ Tazobactam Sod (Zosyn Iv) 4.5 gm NOW STAT IV 11/28/16 19:51 11/28/16 19:57 DC 11/28/16 20:16 4.5 GM Medical Decision Patient was seen and evaluated as above. After obtaining a thorough history and physical examination IV access was obtained, and a CBC, CMP, lipase, CT the head, chest 1 view, PTT, prothrombin time, UA clean catch, stat EKG, point-of- care troponin, d-dimer, BNP, CT chest for PE, CT abdomen and pelvis IV contrast , apply monitor, continuous pulse ox secondary to subjective and objective exam admission findings. The patient does have a history of a gastric ulcer in the antrum, and with the sudden onset of coffee-ground stools I am concerned there may be a worsening of the ulcer. There was no abdominal pain. Patient also complained of shortness of breath, and weakness. There is known pulmonary embolism for which she takes Coumadin. I'm concerned patient may be subtherapeutic as she notes that she has not had the INR checked in some time now. The INR does appear to be appropriate at this time. She does not leaving for pain. The EKG does show normal sinus rhythm, rate of [address] and T-wave abnormalities. Troponin was negative. D-dimer was negative. The patient's CBC reveals no leukocytosis however there is no anemia of 10.6 which is 0.1 lower then was achieved a few days ago. Although this is not a significant decline, the a type and cross was also initiated. Point care troponin, BNP and d-dimer were negative. Urine was unremarkable. Imaging results as above. No acute findings of the head, chest does reveal potential pneumonia, abdomen and pelvis revealed minimal change from previous with massive cardiomegaly. Chest 1 view portable also correlates with pneumonia. She was started on a Protonix bolus and drip secondary to the epigastric ulcer, and in correlation with the positive Hemoccult do believe this is appropriate. The case was discussed with my attending, and was then discussed with Dr. Reeves the admitting physician. After speaking with him, we did decide to reverse the Coumadin with 10 mg IV and vitamin K, and then placed the patient up on broad-spectrum antibiotics for pneumonia to include Zosyn, vancomycin and Levaquin. I did call the pharmacy regarding this to provide appropriate doses. The patient does have history of multiple myeloma, therefore this will also be taken into consideration. The patient was hydrated with a liter of normal saline, and I do believe it is appropriate that the patient be admitted for further evaluation and management as acute GI bleeds can be life-threatening. Please refer to further documentation from Hospital staff regarding her stay. In the evaluation and treatment of this patient the following differential diagnoses were entertained: Acute GI bleed, pulmonary embolism, pneumonia, UTI, metastasis, among others. Is important to note that there was accidental documentation provided by my attending on this patient that was to be on another patient. Please disregard the note above by Dr. Her in which mention is made of AMA. Thank you. Impression Primary Impression: Pneumonia Additional Impressions: Splenomegaly Upper GI bleed Anemia Departure Information Dispostion Being Evaluated By Hospitalist Condition FAIR Referrals Shira Yarbrough MD (PCP) Forms HOME CARE DOCUMENTATION FORM, IMPORTANT VISIT INFORMATION Patient Instructions My [facility] Problem Qualifiers
[2016-11-29] MEDS: PIPERACILL/TAZOBAC IV 3.375 GM in DEXTROSE 5% 100ML 100 ML IV SCH ×2 (02:28→10:00)
[2016-11-29] MEDS: IPRATROPIUM BROMIDE NEB SOLN 0.02% 2.5 ML VIAL INH SCH ×2 (03:27→07:24)
[2016-11-29] MEDS: LEVALBUTEROL 1.25MG/0.5ML NEB INH SCH ×2 (03:27→07:24)
[2016-11-29] MEDS: PANTOprazole INJ 40 MG in DEXTROSE 5% 100ML IV SCH ×2 (04:26→09:59)
[2016-11-29 06:26] LABS: INR 1.4 (0.9-1.1); PARTIAL THROMBOPLASTIN RATIO 1.2; PROTHROMBIN TIME (PATIENT) 14.8 SECONDS (9.0-12.0)
[2016-11-29 06:51] LABS: BLOOD UREA NITROGEN 23 mg/dl (7-18); BUN/CREATININE RATIO 28.5 (10-20); CARBON DIOXIDE 22 mmol/L (21-32); CHLORIDE 113 mmol/L (98-107); CREATININE 0.82 mg/dl (0.60-1.20); GLUCOSE 96 mg/dl (70-99); MAGNESIUM 1.9 mg/dl (1.8-2.4); POTASSIUM 3.7 mmol/L (3.5-5.1); SODIUM 145 mmol/L (136-145)
[2016-11-29 06:55] LABS: HEMATOCRIT 25.1 % (37-47); MEAN CELL VOLUME 84.5 fL (80-100); MEAN CORPUSCULAR HEMOGLOBIN 26.9 pg (25-34); MEAN CORPUSCULAR HGB CONC 31.9 g/dl (32-36); MEAN PLATELET VOLUME 10.2 fL (7.4-10.4); PLATELET COUNT 79 K/uL (130-400); RED BLOOD COUNT 2.97 M/uL (4.2-5.4); WHITE BLOOD COUNT 6.26 K/uL (4.8-10.8)
[2016-11-29 07:05] LABS: COMPLETE YES; LYMPH ABS # 0.69 K/uL (1.2-3.4); POLYCHROMASIA 1+; TEAR DROP CELLS 3+; TOXIC GRANULATION 1+
[2016-11-29] MEDS: NSS + 20MEQ KCL 1000ML 1,000 ML IV SCH (07:46)
[2016-11-29] MEDS ORDERED: INFLUENZA ADMINISTRATION CHARGE ONE (08:00)
[2016-11-29] MEDS ORDERED: INFLUENZA VIRUS QUAD VACCINE 0.5 ML SYR IM. ONE (08:00)
[2016-11-29 11:03] LABS: HEMATOCRIT 25.6 % (37-47)
[2016-11-29] MEDS ORDERED: VANCOMYCIN INJ 750 MG in SODIUM CHLORIDE 0.9% 250ML 250 ML IV SCH (12:00)
--- NOTE | 2016-11-29 12:04 | ONCOLOGY CONSULTATION ---
DATE OF CONSULTATION: 11/29/2016 DATE OF CONSULTATION: 11/29/2016. 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 HISTORY OF PRESENT ILLNESS: Belgica is a pleasant 61-year-old female patient who was admitted to [facility] earlier this morning with what appears to be an acute GI bleed. The patient has noticed over the past 48 hours her stools have been of a coffee ground consistency. She reports no bright red rectal bleeding or dark blood per se. She reports having flu-like illness about 2 weeks ago, developed cough and intermittent diarrhea at that time which she reports was not dark. Labs on admission clearly suggests she has dropped a couple grams of hemoglobin in the last couple of months. I last saw Belgica in August of 2016, at which time her hemoglobin was in the 12 gram per deciliter range. Belgica [facility]. She has had chronic DVT/PE for several years and is maintained on Coumadin anticoagulation. 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 She was recently put on Jakafi, one of the new JAK2 inhibitors. Her disease is manifests mainly by thrombocytopenia and borderline anemia. Her spleen is also massively enlarged, last measurement 24, however recent ultrasound measured her spleen at 30 cm. Primary service is planning for gastroenterology to consult with Belgica. She will bring her medication from home (Jakafi 10 mg p.o. b.i.d.) to continue while inpatient. PAST MEDICAL HISTORY: Again, significant for chronic DVT/pulmonary embolism, no documented thrombophilia however. Agnogenic myeloid metaplasia. PAST SURGICAL HISTORY: [place] teeth extraction, tubal ligation, liver and bone marrow biopsies. 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 Negative for smoking or alcohol. FAMILY HISTORY: Negative for thrombophilia. REVIEW OF SYSTEMS: As per HPI, negative for fevers, chills or sweats. She reports flu-like illness 2 weeks prior. She is not anorexic or losing weight. SKIN: No rashes or lesions. No history of dermatoses. HEAD, EYES, EARS, NOSE, AND THROAT: Negative for headaches, lightheadedness or dizziness. No visual or hearing deficits. No sinus symptoms, sore throat or dysphagia. LYMPH: No history of lymphoproliferative disorder or palpable lymphadenopathy. CARDIAC: Negative for angina or palpitations. PULMONARY: She reports some dyspnea on exertion over the past couple of week, I suspect due to her dropping hemoglobin. She also reported nonproductive cough that has subsided. She reports no hemoptysis. GASTROINTESTINAL: Positive for black tarry stool. She denies sarika rectal bleeding. She has had intermittent diarrhea. No nausea or vomiting presently. No abdominal pain presently. GENITOURINARY: No hematuria, dysuria, urinary incontinence. MUSCULOSKELETAL: No arthralgias or myalgias or muscle weakness. ENDOCRINE: Negative for diabetes or thyroid disease. NEUROLOGIC: Negative for seizure, stroke, or migraine headache. HEMATOLOGIC: Again, history of agnogenic myeloid metaplasia resulting in persistent mild anemia and thrombocytopenia. Positive for blood clots. PHYSICAL EXAMINATION: GENERAL: Very pleasant 61-year-old female patient in no acute distress. VITAL SIGNS: Temperature 36.3, pulse 97, respirations 18, blood pressure 118/66. SKIN: Warm, dry, noncyanotic without petechia, rash or ecchymosis. HEAD: Atraumatic, normocephalic. EYES: PERRLA, EOMI. Sclerae nonicteric. No conjunctival injection. Nares patent without rhinorrhea or discharge. Throat is clear. Tongue is midline. Mucous membranes are moist. NECK: Supple without JVD or thyromegaly. LYMPH: No cervical, supraclavicular, axillary palpable nodes. HEART: Regular rate and rhythm. No clicks, rubs, murmurs, gallops. LUNGS: Clear to auscultation bilaterally. ABDOMEN: Soft, nontender, nondistended. Palpable splenomegaly down to the pelvic brim. No rigidity or guarding. Otherwise, bowel sounds are active. EXTREMITIES: No calf tenderness or swelling. No clubbing, cyanosis or edema. MUSCULOSKELETAL: Strength and pulses are equal. NEUROLOGICALLY: She is awake, alert and oriented x3. Cranial nerves II-XII are intact. No gross motor or sensory deficits are noted. LABORATORY DATA: WBC count 6260, hemoglobin 8, platelet count 79. Sodium 145, potassium 3.7, chloride 113, carbon dioxide 22, BUN 23, creatinine 0.82. RADIOGRAPHIC DATA: CT scan of the abdomen and pelvis done on admission slight improvement in massive splenomegaly; however, a recent ultrasound demonstrates increase in length of the spleen from 24 cm to 30. Diffuse skeletal sclerosis with scattered lucent lesions noted. CTA of the chest, multifocal patchy and nodular airspace opacities seen, possibly secondary to infectious process. A follow-up CT is recommended. Progression of diffuse bony sclerosis and multiple lytic lesions. IMPRESSION: 1. Suspected upper gastrointestinal bleeding. 2. Agnogenic myeloid metaplasia by history. 3. Multiple skeletal lytic lesions seen on CTA. Etiology unclear. 4. Anemia. 5. Thrombocytopenia. PLAN: From a hematologic standpoint, would recommend she continue to Jakafi 10 mg p.o. b.i.d. She may bring her medication from home as this agent is not readily stocked in the hospital pharmacy. Obviously agree with GI workup and holding anticoagulation until a source is found. I was caught a bit off guard with the presence of multiple lytic lesions which are generally not a part of agnogenic myeloid metaplasia. Belgica has followup scheduled with me on 's Day and will discuss this issue separately. She is not experiencing pain at this time, but obviously these lesions should be worked up. Her peripheral counts are satisfactory for now. Would not employ transfusional support. Thank you again for allowing us to participate in her care. If you have any questions or concerns, feel free to contact me at any time. MILE
--- NOTE | 2016-11-29 12:26 | Progress Note ---
Subjective Date of Service: Nov 29, 2016. Subjective Pt evaluation today including: conversation w/ patient, physical exam, lab review, review of studies, conversation w/ acquisition consultant, review of inpatient medication list Pain: epigasric and LUQ pain, mild PO Intake: clears Voiding: no voiding problems patient had two more melanotic stools after admission, no vomiting or hematemesis, no bright red blood per rectum overall her breathing is better discussed her myelodysplastic syndrome, she was diagnosed 30 years ago, has been stable on Jakafi more recently, she admits to a cough and increased shortness of breath correlating with the infiltrates seen on CT chest h/o PE, most recent was 2003 when she had the left lower lobe clots, on Coumadin Problem List Medical Problems: (1) Anemia Status: Acute (2) Splenomegaly Status: Acute Review of Systems Constitutional: + fatigue, + weakness Respiratory: + cough, + dyspnea on exertion, + shortness of breath Cardiac: No chest pain Abdomen: + GI bleeding (melena), + pain (epigastric) All Other Systems: Reviewed and Negative Medications Current Inpatient Medications Medications (Trade) Dose Ordered Sig/Keith Route Start Time Stop Time Status Last Admin Dose Admin Ioversol 125 ml 125 ml UD PRN IV 11/28/16 16:45 12/02/16 16:44 Potassium Chloride/Sodium Chloride 1,000 ml @ 100 mls/hr Q10H IV 11/28/16 21:34 12/28/16 20:03 11/29/16 07:46 100 MLS/HR Piperacillin Sod/ Tazobactam Sod 3.375 gm/Dextrose 115 ml @ 28.75 mls/ hr Q8H IV 11/29/16 02:00 12/06/16 01:59 11/29/16 10:00 28.75 MLS/HR Levofloxacin/Prmx (Levaquin / D5W/ Premixed D5W) 100 ml @ 100 mls/hr Q24H IV 11/29/16 22:00 12/06/16 21:59 Diphenhydramine HCl (Benadryl Inj) 50 mg Q6H PRN IV 11/28/16 20:30 12/28/16 20:29 Lorazepam 0.5 mg 0.5 mg Q4H PRN IV 11/28/16 20:30 12/28/16 20:29 Lorazepam/Syringe (Ativan Inj/ Syringe) 1 ml @ 1 mls/min Q4H PRN IV 11/28/16 20:45 12/28/16 20:44 Piperacillin Sod/ Tazobactam Sod (Consult) 1 ea UD PRN N/A 11/28/16 20:45 12/28/16 20:44 Ipratropium [place] (Atrovent 0.02% 0.5MG/2.5ML Neb) 0.5 mg Q2H PRN INH 11/28/16 21:00 12/28/16 20:59 Levalbuterol 1.25 mg 1.25 mg Q2H PRN INH 11/28/16 21:00 12/28/16 20:59 Pantoprazole Sodium/Dextrose (Protonix Inj/D5 100ml) 100 ml @ 20 mls/hr Q5H IV 11/29/16 00:15 12/29/16 00:14 11/29/16 09:59 20 MLS/HR Ondansetron HCl 4 mg 4 mg Q6H PRN IV 11/28/16 22:30 12/28/16 22:29 Acetaminophen (Ofirmev Iv) 100 ml @ 400 mls/hr Q8H PRN IV 11/28/16 22:30 12/28/16 22:29 Objective Vital Signs Date Time Temp Pulse Resp B/P Pulse Ox O2 Delivery O2 Flow Rate FiO2 11/29/16 11:46 36.6 87 18 123/63 96 Room Air 11/29/16 08:00 Room Air 11/29/16 07:46 36.3 97 18 118/66 96 Room Air 11/29/16 04:29 37.1 100 18 113/68 94 Room Air 11/29/16 04:00 Room Air 11/29/16 02:05 93 18 98 Room Air 11/29/16 00:00 Room Air 11/28/16 23:30 37.5 93 20 135/69 97 Room Air 11/28/16 21:30 36.6 89 18 122/71 96 Room Air 11/28/16 20:30 92 18 125/75 94 Room Air 11/28/16 19:23 93 16 123/62 97 Room Air 11/28/16 17:46 94 20 141/71 94 11/28/16 16:52 95 11/28/16 16:14 36.5 108 20 135/78 96 Room Air Physical Exam General Appearance: WD/WN, no apparent distress Eyes: normal inspection, EOMI, sclerae normal ENT: normal ENT inspection, hearing grossly normal, pharynx normal Neck: supple, no adenopathy, no JVD, trachea midline Respiratory/Chest: chest non-tender, lungs clear, normal breath sounds, no respiratory distress, no accessory muscle use Cardiovascular: regular rate, rhythm, no edema, no gallop, no JVD, no murmur Abdomen: normal bowel sounds, soft, no organomegaly, + tenderness (epigastric) Extremities: normal range of motion, non-tender, normal inspection, no pedal edema, no calf tenderness 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, no motor/sensory deficits, alert, normal mood/affect, oriented x 3 Skin: normal color, warm/dry, no rash Lymphatic: no adenopathy Laboratory Results Last 24 Hours Test 11/28/16 16:25 11/28/16 16:56 11/28/16 17:02 11/28/16 22:55 Urine Color YELLOW Urine Appearance CLEAR Urine pH 5.0 Urine Specific Jackson 1.004 Urine Protein NEG Urine Glucose (UA) NEG Urine Ketones NEG Urine Occult Blood NEG Urine Nitrite NEG Urine Bilirubin NEG Urine Urobilinogen NEG Urine Leukocyte Esterase NEG White Blood Count 10.35 K/uL Red Blood Count 3.87 M/uL Hemoglobin 10.6 g/dL 9.2 g/dL Hematocrit 32.9 % 28.5 % Mean Corpuscular Volume 85.0 fL Mean Corpuscular Hemoglobin 27.4 pg Mean Corpuscular Hemoglobin Concent 32.3 g/dl Platelet Count 99 K/uL Mean Platelet Volume 9.8 fL RDW Standard Deviation 57.6 fL RDW Coefficient of Variation 18.9 % Nucleated RBC Absolute Count (auto) 0.51 K/uL Neutrophils % (Manual) 73.9 % Lymphocytes % (Manual) 13.0 % Monocytes % (Manual) 2.6 % Basophils % (Manual) 1.7 % Metamyelocytes % 3.5 % Myelocytes % 3.5 % Promyelocytes % 0.9 % Blast Cells % 0.9 % Nucleated Red Blood Cells % 4.8 % Neutrophils # (Manual) 7.65 K/uL Total Absolute Neutrophils 7.65 K/uL Lymphocytes # (Manual) 1.35 K/uL Total Absolute Lymphocytes 1.35 K/uL Monocytes # (Manual) 0.27 K/uL Basophils # (Manual) 0.18 K/uL Metamyelocytes # 0.36 K/uL Myelocytes # 0.36 K/uL Promyelocytes # 0.09 K/uL Blast Cells # 0.09 K/uL Blood Smear Review Platelet Estimate DECREASED Polychromasia 1+ Anisocytosis PRESENT Tear Drop Cells 1+ Prothrombin Time 29.9 SECONDS Prothromb Time International Ratio 2.7 Activated Partial Thromboplast Time 38.5 SECONDS Partial Thromboplastin Ratio 1.5 Sodium Level 141 mmol/L Potassium Level 4.0 mmol/L Chloride Level 107 mmol/L Carbon Dioxide Level 27 mmol/L Anion Gap 7.0 mmol/L Blood Urea Nitrogen 28 mg/dl Creatinine 0.84 mg/dl Est Creatinine Clear Calc Drug Dose 68.3 ml/min Estimated GFR () 88.2 Estimated GFR (Non- 76.1 BUN/Creatinine Ratio 32.9 Random Glucose 94 mg/dl Calcium Level 8.6 mg/dl Total Bilirubin 1.2 mg/dl Aspartate Amino Transf (AST/SGOT) 31 U/L Alanine Aminotransferase (ALT/SGPT) 27 U/L Alkaline Phosphatase 238 U/L Total Protein 6.9 gm/dl Albumin 3.5 gm/dl Globulin 3.4 gm/dl Albumin/Globulin Ratio 1.0 Lipase 204 U/L Bedside D-Dimer 30 ng/mlFEU Bedside Troponin I 0.000 ng/ml NI-Ppg-B-Type Natriuretic Peptide 328 pg/ml Total Creatine Kinase 28 U/L Creatine Kinase MB < 0.5 ng/ml Creatine Kinase MB Ratio Troponin I < 0.015 ng/ml Test 11/29/16 05:15 11/29/16 10:35 White Blood Count 6.26 K/uL Red Blood Count 2.97 M/uL Hemoglobin 8.0 g/dL 8.5 g/dL Hematocrit 25.1 % 25.6 % Mean Corpuscular Volume 84.5 fL Mean Corpuscular Hemoglobin 26.9 pg Mean Corpuscular Hemoglobin Concent 31.9 g/dl Platelet Count 79 K/uL Mean Platelet Volume 10.2 fL RDW Standard Deviation 57.8 fL RDW Coefficient of Variation 18.9 % Nucleated RBC Absolute Count (auto) 0.30 K/uL Neutrophils % (Manual) 74.0 % Lymphocytes % (Manual) 11.0 % Monocytes % (Manual) 3.0 % Eosinophils % (Manual) 1.0 % Myelocytes % 10.0 % Blast Cells % 1.0 % Nucleated Red Blood Cells % 4.9 % Neutrophils # (Manual) 4.63 K/uL Total Absolute Neutrophils 4.63 K/uL Lymphocytes # (Manual) 0.69 K/uL Total Absolute Lymphocytes 0.69 K/uL Monocytes # (Manual) 0.19 K/uL Eosinophils # (Manual) 0.06 K/uL Myelocytes # 0.63 K/uL Blast Cells # 0.06 K/uL Toxic Granulation 1+ Polychromasia 1+ Tear Drop Cells 3+ Prothrombin Time 14.8 SECONDS Prothromb Time International Ratio 1.4 Activated Partial Thromboplast Time 30.6 SECONDS Partial Thromboplastin Ratio 1.2 Sodium Level 145 mmol/L Potassium Level 3.7 mmol/L Chloride Level 113 mmol/L Carbon Dioxide Level 22 mmol/L Anion Gap 10.0 mmol/L Blood Urea Nitrogen 23 mg/dl Creatinine 0.82 mg/dl Est Creatinine Clear Calc Drug Dose 69.7 ml/min Estimated GFR () 90.8 Estimated GFR (Non- 78.3 BUN/Creatinine Ratio 28.5 Random Glucose 96 mg/dl Calcium Level 8.0 mg/dl Magnesium Level 1.9 mg/dl Total Creatine Kinase 22 U/L Creatine Kinase MB < 0.5 ng/ml Creatine Kinase MB Ratio Troponin I < 0.015 ng/ml Assessment and Plan 61 yo female with a history of myelodysplastic syndrome, treated with Jakafi, presented with melena for 3 days, foul smelling very dark stools, some epigastric pain. Also, she has had a cough and increased shortness of breath, no fevers, she has known exposures to others with recent URI. On admission she had anemia and a CT of the chest showed infiltrates in right lung and left upper lobe. NPO, Protonix and GI consulted for GI bleed. Started on broad spectrum antibiotics for bilateral pneumonia. - Acute blood loss anemia with suspected upper GI bleed: again with melena today , Hb dropped to 8.0 but then back up to 8.5 on repeat, blood pressure stable two units ready, will transfuse if hypotensive or Hb drops to 7.0 allow clear liquids today, GI consulted for recommendations Protonix drip, INR reversed to 1.4 after Vitamin K - Bilateral pneumonia, bacterial vs viral etiology: will taper antibiotics to just Levaquin, no hypoxia, no tachypnea, MRSA swab negative treat for 5-7 days - H/o PE on Coumadin: INR was 2.7, reversed due to bleeding, INR 1.4, will encourage ambulation and SCD's while in bed once GI bleed evaluated and stopped, will resume full anticoagulation with Lovenox, will need to check with GI about timing - Myelodysplastic syndrome: diagnosed 30 years ago, on Jakafi, follows with Dr. Vergara CT scan showing lytic lesions, progressing when compared to prior scans Dr. Vergara consulted for recommendations - Abnormal EKG, inverted TW in anteriolateral leads: still evident this AM, no chest pain and troponin negative x 3 follow up on echocardiogram results, keep on telemetry cannot use antiplatelets due to bleeding feel that changes most likely represent stress from anemia and pneumonia
--- NOTE | 2016-11-29 13:43 | Medical Consult ---
Consultation Note Date of Service Nov 29, 2016. Consultation Note Reason for consult: UGIB? 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 On admission, her VS were unremarkable. Her rectal exam showed stool that was described as normal but heme positive. Her admission BUN was in the 20's, her INR was 2.7, and has had a normocytic anemia from around 12 in August to 10 last week to 8-8.5 now. She has mild stable thrombocytopenia. Chest imaging showed multilobar consolidations. She was placed on IV PPI gtt for possible UGIB and abx for pneumonia. PAST MEDICAL HISTORY: Again, significant for chronic DVT/pulmonary embolism, no documented thrombophilia however. Agnogenic myeloid metaplasia. PAST SURGICAL HISTORY: Gunlock teeth extraction, tubal ligation, liver and bone marrow biopsies. 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 Negative for smoking or alcohol. FAMILY HISTORY: Negative for thrombophilia. REVIEW OF SYSTEMS: As per HPI, negative for fevers, chills or sweats. She reports URI 2 weeks prior with persistent cough. She is not anorexic or losing weight. SKIN: No rashes or lesions. No history of dermatoses. HEAD, EYES, EARS, NOSE, AND THROAT: Negative for headaches, lightheadedness or dizziness. No visual or hearing deficits. No sinus symptoms, sore throat or dysphagia. LYMPH: No history of lymphoproliferative disorder or palpable lymphadenopathy. CARDIAC: Negative for angina or palpitations. PULMONARY: She reports some dyspnea on exertion over the past couple of week. She also reported nonproductive cough that has subsided. She reports no hemoptysis. GASTROINTESTINAL: Positive for . She denies sarika rectal bleeding. She has had intermittent diarrhea. No nausea or vomiting presently. No abdominal pain presently. GENITOURINARY: No hematuria, dysuria, urinary incontinence. MUSCULOSKELETAL: No arthralgias or myalgias or muscle weakness. ENDOCRINE: Negative for diabetes or thyroid disease. NEUROLOGIC: Negative for seizure, stroke, or migraine headach PHYSICAL EXAMINATION: Vital Signs Past 12 Hours Date Time Temp Pulse Resp B/P Pulse Ox O2 Delivery O2 Flow Rate FiO2 11/29/16 12:27 Room Air 11/29/16 11:46 36.6 87 18 123/63 96 Room Air 11/29/16 08:00 Room Air 11/29/16 07:46 36.3 97 18 118/66 96 Room Air 11/29/16 04:29 37.1 100 18 113/68 94 Room Air 11/29/16 04:00 Room Air Appears comfortable, pleasant SKIN: Warm, dry, noncyanotic without petechia, rash or ecchymosis. HEAD: Atraumatic, normocephalic. EYES: PERRLA, EOMI. Sclerae nonicteric. No conjunctival injection. Nares patent without rhinorrhea or discharge. Throat is clear. Tongue is midline. Mucous membranes are moist. NECK: Supple without JVD or thyromegaly. LYMPH: No cervical, supraclavicular, axillary palpable nodes. HEART: Regular rate and rhythm. No clicks, rubs, murmurs, gallops. LUNGS: Clear to auscultation bilaterally. ABDOMEN: Soft, nontender, nondistended. Palpable splenomegaly down to the pelvic brim. No rigidity or guarding. Otherwise, bowel sounds are active. EXTREMITIES: No calf tenderness or swelling. No clubbing, cyanosis or edema. MUSCULOSKELETAL: Strength and pulses are equal. NEUROLOGICALLY: She is awake, alert and oriented x3. Cranial nerves II-XII are intact. No gross motor or sensory deficits are noted. RECTAL: bright yellow stool A/p: Possible GIB - Her rectal exam does not suggest that she has had a recent GI bleed. Nevertheless, given her recent Hgb drop, her need for anticoagulation, and her h /o acid-peptic disease, will plan for EGD on Thursday. She has no high risk factors - no need for IV PPI gtt - can change to twice daily oral PPI. OK for full liquid diet.
--- NOTE | 2016-11-29 15:07 | ECHOCARDIOGRAM REPORT ---
*NOTICE TO RECEIVING REPUBLICAN AGENCY This information is strictly Confidential and protected under [place] law. [place] law prohibits you from making any further disclosure of this information unless further disclosure is expressly permitted by the written consent of the person to whom it pertains or is authorized by law. A general authorization for the release of medical or other information is not sufficient for this purpose. Hospital accepts no responsibility if the information is made available to any other person, INCLUDING THE PATIENT. Interpretation Summary * Name: SANTA ANNA Study Date: 11/29/2016 11:55 AM BP: 113/68 mmHg * Patient Location: C.2E\S\E205\S\1 HR: 85 * : 1955 (M/d/yyyy) Gender: Female Height: 64 in * Age: 61 yrs Ethnicity: CA Weight: 148 lb * Ordering Physician: Joe Odonnell * Performed By: Darline Neumann RDCS * * Reason For Study: SCHAEFER, Abnormal EKG * BSA: 1.7 m2 * -- Conclusions -- * 1. Normal LV size and wall thickness. * 2. Normal LV function. LVEF 65-70%. No regional wall motion abnormalities. * 3. Normal RV size and function. * 4. Trace MR. Trace TR. * 5. Mild pulmonary hypertension. Est PASP 35-40 mmHg. Normal estimated RA pressure. * 6. Compared with prior study on 04/27/2009: No significant changes. Procedure Details * A complete two-dimensional transthoracic echocardiogram was performed (2D, M-mode, Doppler and color flow Doppler). Left Ventricle * The left ventricle is grossly normal size. * There is normal left ventricular wall thickness. * Ejection Fraction = 65-70%. * No regional wall motion abnormalities noted. Right Ventricle * The right ventricle is grossly normal size. * The right ventricular systolic function is normal as assessed by tricuspid annular plane systolic excursion (TAPSE) (normal >1.5 cm). Atria * Borderline left atrial enlargement. * Borderline right atrial enlargement. * No ASD detected; PFO is not assessed. Mitral Valve * The mitral valve is grossly normal. * Mitral stenosis is absent. * There is trace mitral regurgitation. Tricuspid Valve * The tricuspid valve is not well visualized, but is grossly normal. * There is no tricuspid stenosis. * There is trace tricuspid regurgitation. * Mild pulmonary hypertension. Est PASP 35-40 mmHg Aortic Valve * The aortic valve opens well. * The aortic valve is trileaflet. * No hemodynamically significant valvular aortic stenosis. * There is no significant aortic regurgitation. Pulmonic Valve * The pulmonary valve is inadequately visualized, but the Doppler data is adequate for interpretation. * Pulmonic stenosis is absent. * There is no significant pulmonary regurgitation. Great Vessels * The aortic root and proximal ascending aorta are normal sized. * No Doppler or imaging evidence of an aortic coarctation. Pericardium/Pleural * There is no pericardial effusion. Great Vessels * Normal inferior vena cava size and collapsability with sniff indicates a normal right atrial pressure of 3 mmHg MMode 2D Measurements and Calculations IVSd 0.89 cm LVIDd 5.2 cm LVIDs 3.3 cm LVPWd 0.72 cm IVS/LVPW 1.2 FS 35.7 % EDV(Teich) 126.9 ml ESV(Teich) 44.6 ml EF(Teich) 64.9 % EDV(cubed) 137.0 ml ESV(cubed) 36.4 ml EF(cubed) 73.4 % LV mass(C)d 144.9 grams LV mass(C)dI 84.2 grams/m\S\2 SV(Teich) 82.3 ml SI(Teich) 47.8 ml/m\S\2 SV(cubed) 100.6 ml SI(cubed) 58.4 ml/m\S\2 Ao root diam 2.9 cm Ao root area 6.6 cm\S\2 ACS 1.6 cm LA dimension 4.2 cm asc Aorta Diam 2.5 cm LA/Ao 1.4 LVOT diam 2.0 cm LVOT area 3.1 cm\S\2 LVAd ap4 19.8 cm\S\2 LVLd ap4 7.2 cm EDV(MOD-sp4) 44.9 ml EDV(sp4-el) 46.7 ml LVAs ap4 10.0 cm\S\2 LVLs ap4 5.9 cm ESV(MOD-sp4) 14.7 ml ESV(sp4-el) 14.4 ml EF(MOD-sp4) 67.2 % EF(sp4-el) 69.1 % LVAd ap2 19.6 cm\S\2 LVLd ap2 7.0 cm EDV(MOD-sp2) 46.0 ml EDV(sp2-el) 46.4 ml LVAs ap2 9.0 cm\S\2 LVLs ap2 5.1 cm ESV(MOD-sp2) 12.6 ml ESV(sp2-el) 13.4 ml EF(MOD-sp2) 72.6 % EF(sp2-el) 71.2 % LVLd %diff -1.94 % EDV(MOD-bp) 45.9 ml LVLs %diff -15.65 % ESV(MOD-bp) 14.1 ml EF(MOD-bp) 69.2 % SV(MOD-sp4) 30.2 ml SI(MOD-sp4) 17.5 ml/m\S\2 SV(MOD-sp2) 33.4 ml SI(MOD-sp2) 19.4 ml/m\S\2 SV(MOD-bp) 31.7 ml SI(MOD-bp) 18.4 ml/m\S\2 SV(sp4-el) 32.2 ml SI(sp4-el) 18.7 ml/m\S\2 SV(sp2-el) 33.0 ml SI(sp2-el) 19.2 ml/m\S\2 Doppler Measurements and Calculations MV E max joselin 69.8 cm/sec MV A max joselin 72.1 cm/sec MV E/A 0.97 MV dec time 0.23 sec Ao V2 max 159.9 cm/sec Ao max PG 10.2 mmHg Ao max PG (full) 6.7 mmHg KIMI(V,A) 1.8 cm\S\2 KIMI(V,D) 1.8 cm\S\2 LV V1 max PG 3.5 mmHg LV V1 max 93.6 cm/sec PA V2 max 111.8 cm/sec PA max PG 5.0 mmHg PA acc slope 465.9 cm/sec\S\2 PA acc time 0.16 sec PA pr(Accel) 6.1 mmHg
[2016-11-29 16:46] LABS: HEMATOCRIT 25.8 % (37-47)
[2016-11-29] MEDS ORDERED: NURSING VERBAL MED ORDER ONE (17:30)
[2016-11-29] MEDS: PANTOprazole SOD 40 MG TAB PO SCH (21:39)
[2016-11-29] MEDS ORDERED: LEVOFLOXACIN / D5W 500 MG in PREMIXED IN D5W 100 ML IV SCH (22:00)
[2016-11-29 23:09] LABS: HEMATOCRIT 26.3 % (37-47)
[2016-11-30] VITALS (7 sets, daily range): BP systolic 95–120; BP diastolic 59–67; PULSE 75–93; TEMP 36.6–36.9; O2SAT 93–98
[2016-11-30 04:38] LABS: MEAN CORPUSCULAR HGB CONC 31.7 g/dl (32-36)
[2016-11-30 04:45] LABS: HEMATOCRIT 26.2 % (37-47); MEAN CELL VOLUME 86.5 fL (80-100); MEAN CORPUSCULAR HEMOGLOBIN 27.4 pg (25-34); RED BLOOD COUNT 3.03 M/uL (4.2-5.4); WHITE BLOOD COUNT 6.33 K/uL (4.8-10.8)
[2016-11-30 04:49] LABS: INR 1.2 (0.9-1.1); PROTHROMBIN TIME (PATIENT) 12.7 SECONDS (9.0-12.0)
[2016-11-30 04:57] LABS: CALCIUM 8.4 mg/dl (8.5-10.1); CREATININE 0.94 mg/dl (0.60-1.20); MAGNESIUM 2.1 mg/dl (1.8-2.4); POTASSIUM 4.1 mmol/L (3.5-5.1)
[2016-11-30 05:08] LABS: PLATELET COUNT 65 K/uL (130-400)
[2016-11-30 05:10] LABS: BASO ABS # 0.06 K/uL (0-0.2); BASOPHIL % 0.9 %; COMPLETE YES; EOSINOPHIL % 0.9 %; GIANT PLATELETS 1+; LYMPH ABS # 1.16 K/uL (1.2-3.4); LYMPHOCYTE % 18.3 %; META ABS # 0.22 K/uL (0-0); METAMYELOCYTE % 3.5 %; MYELOCYTE % 4.3 %; NEUTROPHILS % 69.5 %; PLT ESTIMATE DECREASED; POLYCHROMASIA 1+; TEAR DROP CELLS 2+; TOXIC GRANULATION OCCASIONAL
[2016-11-30] MEDS: PANTOprazole SOD 40 MG TAB PO SCH ×2 (08:43→20:06)
--- NOTE | 2016-11-30 09:58 | Progress Note ---
Subjective Date of Service: Nov 30, 2016. Subjective Pt evaluation today including: conversation w/ patient, physical exam, lab review, conversation w/ sap pp consultant, review of inpatient medication list Pain: no pain PO Intake: adequate Voiding: no voiding problems patient doing well, no issues overnight yesterday afternoon she noticed some bright red blood per rectum, but small amount, nothing further appreciated GI and hematology recommendations breathing is comfortable, cough significantly improved compared to time of admission discussed plans for EGD tomorrow she wants to be sure that she will be on Lovenox when she goes home Problem List Medical Problems: (1) Anemia Status: Acute (2) Splenomegaly Status: Acute Review of Systems Respiratory: + cough (minimized) Abdomen: + GI bleeding (some bright blood yesterday, no further melena) All Other Systems: Reviewed and Negative Medications Current Inpatient Medications Medications (Trade) Dose Ordered Sig/Keith Route Start Time Stop Time Status Last Admin Dose Admin Ioversol (Optiray 320) 125 ml UD PRN IV 11/28/16 16:45 12/02/16 16:44 Diphenhydramine HCl (Benadryl Inj) 50 mg Q6H PRN IV 11/28/16 20:30 12/28/16 20:29 Lorazepam 0.5 mg 0.5 mg Q4H PRN IV 11/28/16 20:30 12/28/16 20:29 Lorazepam/Syringe (Ativan Inj/ Syringe) 1 ml @ 1 mls/min Q4H PRN IV 11/28/16 20:45 12/28/16 20:44 Ipratropium [place] (Atrovent 0.02% 0.5MG/2.5ML Neb) 0.5 mg Q2H PRN INH 11/28/16 21:00 12/28/16 20:59 Levalbuterol (Xopenex 1.25MG/ 0.5ML Neb) 1.25 mg Q2H PRN INH 11/28/16 21:00 12/28/16 20:59 Ondansetron HCl 4 mg 4 mg Q6H PRN IV 11/28/16 22:30 12/28/16 22:29 Acetaminophen (Ofirmev Iv) 100 ml @ 400 mls/hr Q8H PRN IV 11/28/16 22:30 12/28/16 22:29 Pantoprazole Sodium (Protonix Tab) 40 mg BID PO 11/29/16 21:00 12/29/16 20:59 11/30/16 08:43 40 MG Levofloxacin (Levaquin Tab) 500 mg DAILY@11 PO 11/30/16 16:00 12/07/16 15:59 Objective Vital Signs Date Time Temp Pulse Resp B/P Pulse Ox O2 Delivery O2 Flow Rate FiO2 11/30/16 08:00 Room Air 11/30/16 07:46 36.7 79 18 120/64 93 Room Air 11/30/16 04:15 36.9 90 16 116/63 94 Room Air 11/30/16 04:00 Room Air 11/29/16 23:59 96 Room Air 11/29/16 23:10 36.7 92 18 95/67 96 Room Air 11/29/16 20:00 93 Room Air 11/29/16 19:56 36.8 85 18 123/61 93 Room Air 11/29/16 16:10 36.8 84 18 116/64 96 Room Air 11/29/16 16:00 Room Air 11/29/16 12:27 Room Air 11/29/16 11:46 36.6 87 18 123/63 96 Room Air Physical Exam General Appearance: WD/WN, no apparent distress Eyes: normal inspection, EOMI, sclerae normal ENT: normal ENT inspection, hearing grossly normal, pharynx normal Neck: supple, no adenopathy, no JVD, trachea midline Respiratory/Chest: chest non-tender, lungs clear, normal breath sounds, no respiratory distress, no accessory muscle use Cardiovascular: regular rate, rhythm, no edema, no gallop, no JVD, no murmur Abdomen: normal bowel sounds, non tender, soft, + splenomegaly Extremities: normal range of motion, non-tender, normal inspection, no pedal edema, no calf tenderness Neurologic/Psychiatric: 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 II-XII nml as tested, no motor/sensory deficits, alert, normal mood/affect, oriented x 3 Skin: normal color, warm/dry, no rash Lymphatic: no adenopathy Laboratory Results Last 24 Hours Test 11/29/16 10:35 11/29/16 14:45 11/29/16 16:30 11/29/16 22:25 Hemoglobin 8.5 g/dL 8.2 g/dL 8.3 g/dL Hematocrit 25.6 % 25.8 % 26.3 % Total Creatine Kinase 27 U/L Creatine Kinase MB < 0.5 ng/ml Creatine Kinase MB Ratio Troponin I < 0.015 ng/ml Test 11/30/16 04:20 White Blood Count 6.33 K/uL Red Blood Count 3.03 M/uL Hemoglobin 8.3 g/dL Hematocrit 26.2 % Mean Corpuscular Volume 86.5 fL Mean Corpuscular Hemoglobin 27.4 pg Mean Corpuscular Hemoglobin Concent 31.7 g/dl Platelet Count 65 K/uL RDW Standard Deviation 59.7 fL RDW Coefficient of Variation 19.1 % Nucleated RBC Absolute Count (auto) 0.27 K/uL Neutrophils % (Manual) 69.5 % Lymphocytes % (Manual) 18.3 % Monocytes % (Manual) 2.6 % Eosinophils % (Manual) 0.9 % Basophils % (Manual) 0.9 % Metamyelocytes % 3.5 % Myelocytes % 4.3 % Nucleated Red Blood Cells % 4.3 % Neutrophils # (Manual) 4.40 K/uL Total Absolute Neutrophils 4.40 K/uL Lymphocytes # (Manual) 1.16 K/uL Total Absolute Lymphocytes 1.16 K/uL Monocytes # (Manual) 0.16 K/uL Eosinophils # (Manual) 0.06 K/uL Basophils # (Manual) 0.06 K/uL Metamyelocytes # 0.22 K/uL Myelocytes # 0.27 K/uL Toxic Granulation OCCASIONAL Platelet Estimate DECREASED Giant Platelets 1+ Polychromasia 1+ Tear Drop Cells 2+ Prothrombin Time 12.7 SECONDS Prothromb Time International Ratio 1.2 Activated Partial Thromboplast Time 26.6 SECONDS Partial Thromboplastin Ratio 1.0 Sodium Level 144 mmol/L Potassium Level 4.1 mmol/L Chloride Level 111 mmol/L Carbon Dioxide Level 24 mmol/L Anion Gap 9.0 mmol/L Blood Urea Nitrogen 13 mg/dl Creatinine 0.94 mg/dl Est Creatinine Clear Calc Drug Dose 60.8 ml/min Estimated GFR () 77.0 Estimated GFR (Non- 66.4 BUN/Creatinine Ratio 14.0 Random Glucose 96 mg/dl Calcium Level 8.4 mg/dl Magnesium Level 2.1 mg/dl Assessment and Plan 61 yo female with a 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 Also, she has had a cough and increased shortness of breath, no fevers, she has known exposures to others with recent URI. On admission she had anemia and a CT of the chest showed infiltrates in right lung and left upper lobe. NPO, Protonix and GI consulted for GI bleed. Started on broad spectrum antibiotics for bilateral pneumonia. - Acute blood loss anemia with suspected upper GI bleed: bleeding appears to be stopped, no melena for 24 hours, Hb stable at 8.3-8.5, blood pressure stable two units ready, will transfuse if hypotensive or Hb drops to 7.0 allow clear liquids today, GI consulted for recommendations, plan for EGD tomorrow Protonix 40mg PO BID, INR reversed to 1.4 after Vitamin K await GI recommendations after EGD tomorrow - Bilateral pneumonia, bacterial vs viral etiology: will taper antibiotics to just Levaquin 500mg daily, no hypoxia, no tachypnea, MRSA swab negative treat for just 5 days, today is day 3, finish on 12/02 - H/o PE on Coumadin: INR was 2.7, reversed due to bleeding, INR 1.2, will encourage ambulation and SCD's while in bed once GI bleed evaluated and stopped, will resume full anticoagulation with Lovenox, will need to check with GI about timing patient follows with Dr. Vergara for INR, has appointment for Thursday my plan would be to send home on Lovenox q12 and resume Coumadin immediately - Agnogenic myeloid metaplasia: diagnosed 30 years ago, on Yue, follows with Dr. Vergara CT scan showing lytic lesions, progressing when compared to prior scans Dr. Vergara consulted for recommendations, she has appointment on Tuesday 12/05 - Abnormal EKG, inverted TW in anteriolateral leads: still evident this AM, no chest pain and troponin negative x 3 echocardiogram normal cannot use antiplatelets due to bleeding feel that changes most likely represent stress from anemia and pneumonia safe to transfer off tele today - Depression: resume Celexa 30mg qHS Plan: transfer to medical today, plan for EGD tomorrow, possible d/c home tomorrow afternoon depending on results of EGD, need to d/w GI if discharged tomorrow, patient would need one more dose of Levaquin 500mg on 12/02 she would need Lovenox q12 and resume Coumadin if okay with GI would plan to follow up with PCP in one week and Dr. Vergara on 12/05
[2016-11-30] MEDS: LEVOFLOXACIN 500 MG TAB PO SCH (15:29)
--- NOTE | 2016-11-30 15:50 | HEME/ONC PROGRESS NOTE ---
DATE: 11/30/2016 DIAGNOSES: 1. Suspected upper gastrointestinal bleeding. 2. Agnogenic myeloid metaplasia by history. 3. Anemia. 4. Thrombocytopenia. HOSPITAL COURSE: Belgica is a pleasant 61-year-old female patient who was admitted to [facility] yesterday morning with acute GI bleeding. The patient had noted about 48 hours prior to admission stools more of a coffee consistency. She was seen in consultation by gastroenterology and will undergo scope procedures tomorrow morning. Belgica is well known to [facility] with agnogenic myeloid metaplasia, has been on Jakafi 10 mg p.o. b.i.d. Clinically, she feels well today. Currently, on clear liquids, but offers no specific complaints. PHYSICAL EXAMINATION: GENERAL: She is in no acute distress. VITAL SIGNS: Temperature 36.6, pulse 93, respirations 16, blood pressure 106/67. SKIN: Without rash or lesion. HEENT: Oral mucosa without erythema or ulceration. NECK: Supple. HEART: Regular rate and rhythm. LUNGS: Clear to auscultation. ABDOMEN: Soft, nontender, nondistended, massive splenomegaly. EXTREMITIES: No clubbing, cyanosis or edema. NEUROLOGIC: Nonfocal. LABORATORY DATA: WBC count 63.30, hemoglobin 8.3, platelet count 65,000. Sodium 144, potassium 4.1, chloride 111, BUN 13, creatinine 0.94. IMPRESSION: 1. Suspected upper gastrointestinal bleeding. 2. Agnogenic myeloid metaplasia. 3. Anemia. 4. Thrombocytopenia. PLAN: Belgica was seen and examined at the bedside today. Feeling much better, has reported no further dark stools per se. I briefly discussed the presence of multiple lytic lesions which she now claims to have been present for many years. She underwent biopsy at one time and lesions were found to be benign. Belgica is scheduled for a followup on 12/05/2016 and I have asked her to keep that appointment. Belgica is now aware that her spleen has grown and will need to consider increasing her dose of Jakafi. Again, transfusional support is not necessary at this time. I briefly spoke to the hospitalist in charge of her case and plans are to discharge her after scope procedures tomorrow. Thank you for allowing us to participate in her care. If you have any questions or concerns, feel free to contact me at any time.
--- NOTE | 2016-11-30 17:25 | Progress Note ---
Progress Note Date of Service Nov 30, 2016. Progress Note No events, no complaints. On exam, she is comfortable, without dyspnea. Abd is soft. Hgb is stable. Will plan EGD tomorrow.
[2016-11-30] MEDS: CITALOPRAM 20 MG TAB PO SCH (20:06)
[2016-12-01 05:54] LABS: MEAN CORPUSCULAR HGB CONC 31.7 g/dl (32-36)
[2016-12-01 06:01] LABS: HEMATOCRIT 26.2 % (37-47); MEAN CELL VOLUME 86.8 fL (80-100); MEAN CORPUSCULAR HEMOGLOBIN 27.5 pg (25-34); RED BLOOD COUNT 3.02 M/uL (4.2-5.4); WHITE BLOOD COUNT 5.83 K/uL (4.8-10.8)
[2016-12-01 06:02] LABS: INR 1.1 (0.9-1.1)
[2016-12-01 06:22] LABS: BUN/CREATININE RATIO 12.6 (10-20); CALCIUM 8.4 mg/dl (8.5-10.1); CREATININE 0.92 mg/dl (0.60-1.20); MAGNESIUM 2.1 mg/dl (1.8-2.4)
[2016-12-01 07:21] VITALS: BP_SYST 84; BP_SYST 86; BP_SYST 95; BP_DIAS 49; BP_DIAS 52; BP_DIAS 59; PULSE 77; TEMP 36.8; O2SAT 94
[2016-12-01 07:32] LABS: BASO % 2.7 %; BASO ABS # 0.16 K/uL (0-0.2); COMPLETE YES; EOS % 1.7 %; IG% 9.3 %; LYMPH % 16.5 %; LYMPH ABS # 0.96 K/uL (1.2-3.4); MONO % 6.3 %; NEUT % 63.5 %; PLATELET COUNT 62 K/uL (130-400); POLYCHROMASIA 1+; TEAR DROP CELLS 2+
[2016-12-01] MEDS ORDERED: LIDOCAINE HCL 2% 2 ML VIAL (20MG/ML) ONE (09:19)
[2016-12-01] MEDS ORDERED: PROPOFOL IV EMULSION 10 MG/ML 20 ML VIAL IV ONE (09:19)
--- NOTE | 2016-12-01 10:09 | GI REPORT ---
Procedure Date: 12/01/2016 9:22 AM Procedure: Upper GI endoscopy Indications: Melena Medicines: See the Anesthesia note for documentation of the administered medications Complications: No immediate complications. Estimated Blood Loss: Estimated blood loss: none. Procedure: Pre-Anesthesia Assessment: - ASA Grade Assessment: III - A patient with severe systemic disease. After obtaining informed consent, the endoscope was passed under direct vision. Throughout the procedure, the patient's blood pressure, pulse, and oxygen saturations were monitored continuously. The On-site loaner was introduced through the mouth, and advanced to the duodenal bulb. The upper GI endoscopy was accomplished without difficulty. The patient tolerated the procedure well. Findings: Four columns of grade II varices were found in the lower third of the esophagus,. No stigmata of recent bleeding were evident. Red jc signs were present. There was evidence of LA class B erosive esophagitis. The GE junction was at 37 cm. There was a small hiatal hernia. There was no gastric varices. There was no evidence of portal gastropathy. The stomach was otherwise normal. The duodenum was normal. Impression: - Non-bleeding grade II esophageal varices with red jc signs. Pt presumably has portal HTn related to hepatomegaly from myelofibrosis. Chart reviewed - CT on 11/28 showed splenomegaly and dilated portal vein, as well as splenic varices, although she has no evidence of portal vein thrombosis. She had upper abdominal varices and tr ascites on CT in 2014. No varices seen o nEGD or CT in 2010. Recommendation: - Discharge patient to floor. - Will begin beta blockade. Given pt's need for anticoagulation and high risk stigmata, would repeat EGD tomorrow for banding. Eventual doppler uls to look for portal vein thrombosis. Agueda De M.D. Agueda De MD 12/01/2016 10:09:26 AM This report has been signed electronically. Note Initiated On: 12/01/2016 9:22 AM I attest to the content of the Intraoperative Record and orders documented therein, exceptions below
--- NOTE | 2016-12-01 10:15 | Anesthesiology Progress Note ---
Anesthesia Post Op Note Date & Time Dec 01, 2016 at 10:15 Vital Signs Pain Intensity: 0 Vital Signs Past 12 Hours Date Time Temp Pulse Resp B/P Pulse Ox O2 Delivery O2 Flow Rate FiO2 12/01/16 10:10 81 20 113/57 97 Room Air 12/01/16 09:55 80 20 103/53 96 Room Air 12/01/16 09:15 36.6 82 20 126/58 95 Room Air 12/01/16 08:45 Room Air 12/01/16 07:21 36.8 77 16 84/49 94 86/52 95/59 12/01/16 00:00 Room Air 11/30/16 23:32 36.8 75 20 104/62 93 Room Air Notes Mental Status: alert / awake / arousable, participated in evaluation Pt Amnestic to Procedure: Yes Nausea / Vomiting: adequately controlled Pain: adequately controlled Airway Patency, RR, SpO2: stable & adequate BP & HR: stable & adequate Hydration State: stable & adequate Anesthetic Complications: no major complications apparent
[2016-12-01 11:25] VITALS: BP 111/72; PULSE 84; TEMP 36.5; O2SAT 96
[2016-12-01] MEDS: PANTOprazole SOD 40 MG TAB PO SCH ×2 (11:43→19:32)
[2016-12-01] MEDS: LEVOFLOXACIN 500 MG TAB PO SCH (11:43)
--- NOTE | 2016-12-01 13:43 | Hematology/Oncology Prog Note ---
Hematology/Onc Progress Note Date of Service Dec 01, 2016. Diagnoses Myelofibrosis Splenomegaly GI Bleed Medications Medications Administered Medications (Trade) Dose Ordered Sig/Keith Route Start Time Stop Time Status Last Admin Dose Admin Pantoprazole Sodium 1 ea 1 ea NOW STAT IV 11/28/16 18:35 11/28/16 18:38 DC 11/28/16 19:40 1 EA Sodium Chloride 1,000 ml @ 999 mls/hr Q1H1M STAT IV 11/28/16 18:35 11/28/16 19:35 DC 11/28/16 19:40 999 MLS/HR Pantoprazole Sodium 80 mg/ Dextrose 120 ml @ 480 mls/hr 1900 ONCE IV 11/28/16 19:00 11/28/16 19:14 DC 11/28/16 19:13 480 MLS/HR Pantoprazole Sodium 40 mg/ Dextrose 100 ml @ 20 mls/hr Q5H IV 11/28/16 19:15 11/29/16 00:14 DC 11/28/16 19:33 20 MLS/HR Phytonadione 10 mg/Sodium Chloride 51 ml @ 102 mls/hr ONE STAT IV 11/28/16 19:51 11/28/16 20:20 DC 11/28/16 20:16 102 MLS/HR Vancomycin HCl/ Sodium Chloride (Vancomycin Inj/ Nss 500ml) 532 ml @ 200 mls/hr TODAY@2030 ONCE IV 11/28/16 20:30 11/28/16 23:09 DC 11/28/16 23:47 200 MLS/HR Levofloxacin (Levaquin / D5W) 750 mg NOW STAT IV 11/28/16 19:51 11/28/16 19:57 DC 11/28/16 21:42 750 MG Piperacillin Sod/ Tazobactam Sod 4.5 gm 4.5 gm NOW STAT IV 11/28/16 19:51 11/28/16 19:57 DC 11/28/16 20:16 4.5 GM Potassium Chloride/Sodium Chloride 1,000 ml @ 50 mls/hr Q20H IV 11/28/16 21:34 11/29/16 17:28 DC 11/29/16 07:46 100 MLS/HR Piperacillin Sod/ Tazobactam Sod 3.375 gm/Dextrose 115 ml @ 28.75 mls/ hr Q8H IV 11/29/16 02:00 11/29/16 12:07 DC 11/29/16 10:00 28.75 MLS/HR Levofloxacin/Prmx (Levaquin / D5W/ Premixed D5W) 100 ml @ 100 mls/hr Q24H IV 11/29/16 22:00 11/30/16 09:30 DC 11/29/16 21:39 100 MLS/HR Ipratropium [place] (Atrovent 0.02% 0.5MG/2.5ML Neb) 0.5 mg Q6R INH 11/28/16 21:00 11/29/16 10:30 DC 11/29/16 03:27 0.5 MG Levalbuterol 1.25 mg 1.25 mg Q6R INH 11/28/16 21:00 11/29/16 09:44 DC 11/29/16 03:27 1.25 MG Pantoprazole Sodium/Dextrose (Protonix Inj/D5 100ml) 100 ml @ 20 mls/hr Q5H IV 11/29/16 00:15 11/29/16 15:24 DC 11/29/16 09:59 20 MLS/HR Pantoprazole Sodium (Protonix Tab) 40 mg BID PO 11/29/16 21:00 12/29/16 20:59 12/01/16 11:43 40 MG Levofloxacin (Levaquin Tab) 500 mg DAILY@11 PO 11/30/16 16:00 12/07/16 15:59 12/01/16 11:43 500 MG Citalopram Hydrobromide (celeXA TAB) 30 mg HS PO 11/30/16 21:00 12/30/16 20:59 11/30/16 20:06 30 MG Heriberto Roy underwent EGD earlier today, which revealed some grade II varices with no active bleeding but high-risk stigmata. As a result, Dr. De is considering repeat EGD with banding today. She continues to have maroon colored stools but no bright red blood. She otherwise feels fine. Review of Systems: Respiratory: No cough, No shortness of breath Cardiovascular: No chest pain Abdomen: + GI bleeding (see HPI), No nausea, No pain, No vomiting Female : No dysuria, No hematuria Neurologic: No numbness/tingling, No weakness Heme: No abnormal bleeding/bruising Skin: No bleeding Vital Signs Vital Signs Past 12 Hours Date Time Temp Pulse Resp B/P Pulse Ox O2 Delivery O2 Flow Rate FiO2 12/01/16 11:25 36.5 84 16 111/72 96 12/01/16 10:26 79 20 119/60 97 Room Air 12/01/16 10:10 81 20 113/57 97 Room Air 12/01/16 09:55 80 20 103/53 96 Room Air 12/01/16 09:15 36.6 82 20 126/58 95 Room Air 12/01/16 08:45 Room Air 12/01/16 07:21 36.8 77 16 84/49 94 86/52 95/59 Physical Exam Constitutional: General Apperance: heathly-appearing Level of Distress: NAD Psychiatric: Mental Status: active & alert Orientation: oriented except where noted Lungs: Respiratory Effort: no dyspnea Auscuitation: breath sounds normal Cardiovascular: Heart Auscultation: RRR, no murmurs Abdomen: Inspection & Palpation: soft, no tenderness, guarding & rebound Liver: pertinent finding (splenomegaly) Extremities: no edema Laboratory Last 24 Hours Test 12/01/16 05:07 12/01/16 07:39 White Blood Count 5.83 K/uL Red Blood Count 3.02 M/uL Hemoglobin 8.3 g/dL Hematocrit 26.2 % Mean Corpuscular Volume 86.8 fL Mean Corpuscular Hemoglobin 27.5 pg Mean Corpuscular Hemoglobin Concent 31.7 g/dl Platelet Count 62 K/uL Neutrophils (%) (Auto) 63.5 % Lymphocytes (%) (Auto) 16.5 % Monocytes (%) (Auto) 6.3 % Eosinophils (%) (Auto) 1.7 % Basophils (%) (Auto) 2.7 % Neutrophils # (Auto) 3.70 K/uL Lymphocytes # (Auto) 0.96 K/uL Monocytes # (Auto) 0.37 K/uL Eosinophils # (Auto) 0.10 K/uL Basophils # (Auto) 0.16 K/uL RDW Standard Deviation 59.9 fL RDW Coefficient of Variation 18.9 % Immature Granulocyte % (Auto) 9.3 % Immature Granulocyte # (Auto) 0.54 K/uL Nucleated RBC Absolute Count (auto) 0.23 K/uL Nucleated Red Blood Cells % 3.9 % Polychromasia 1+ Tear Drop Cells 2+ Prothrombin Time 12.0 SECONDS Prothromb Time International Ratio 1.1 Activated Partial Thromboplast Time 25.3 SECONDS Partial Thromboplastin Ratio 1.0 Sodium Level 145 mmol/L Potassium Level 4.0 mmol/L Chloride Level 110 mmol/L Carbon Dioxide Level 27 mmol/L Anion Gap 8.0 mmol/L Blood Urea Nitrogen 12 mg/dl Creatinine 0.92 mg/dl Est Creatinine Clear Calc Drug Dose 62.4 ml/min Estimated GFR () 79.0 Estimated GFR (Non- 68.2 BUN/Creatinine Ratio 12.6 Random Glucose 96 mg/dl Calcium Level 8.4 mg/dl Magnesium Level 2.1 mg/dl Bedside Glucose 101 mg/dl Assessment & Plan Ms. Roy has some grade II varices, likely the result of her hepatosplenomegaly related to her myelofibrosis. As noted by Dr. Vergara, she will likely require adjustment to her Jakafi. He can discuss this with her as an outpatient. In the meantime, any steps that can be taken to mitigate her risk of bleeding would be advisable. Dr. De is considering banding her varices, which sounds reasonable. She is on Coumadin due to multiple prior thrombotic events, so she does have a clear indication for anticoagulation. However, if she continues to experience GI bleeding or if her varices cannot be effectively managed medically , we will need to discuss the risks and benefits of continued anticoagulation.
[2016-12-01 14:56] VITALS: BP 113/69; PULSE 80; TEMP 36.6; O2SAT 95
--- NOTE | 2016-12-01 19:14 | Hospitalist Progress Note ---
Hospitalist Progress Note Date of Service Dec 01, 2016. Subjective Pt evaluation today including: conversation w/ patient, physical exam, chart review, lab review, review of studies, conversation w/ it systems analyst consultant (Oncology), review of inpatient medication list PO Intake: effie diet after EGD Pt returned from EGD, found to have recently bleeding esophageal varices. She denies abd pain. Last BM was last night and was maroon, H/H stable. She reports 5 separate PEs and several DVTs in her lifetime as well as what sounds like a vertebral artery thrombus? Discussed case with Oncology at length on phone Constitutional: No fever Eyes: No problem reported Respiratory: + cough, No shortness of breath Cardiovascular: No chest pain Abdomen: + GI bleeding, No constipation, No nausea, No pain, No vomiting Musculoskeletal: No problem reported Psychiatric: No problem reported Heme: + clotting problems Endo: No problem reported Skin: No problem reported All Other Systems: Reviewed and Negative Objective Vital Signs Date Time Temp Pulse Resp B/P Pulse Ox O2 Delivery O2 Flow Rate FiO2 12/01/16 15:15 Room Air 12/01/16 14:56 36.6 80 18 113/69 95 Room Air 12/01/16 11:25 36.5 84 16 111/72 96 12/01/16 10:26 79 20 119/60 97 Room Air 12/01/16 10:10 81 20 113/57 97 Room Air 12/01/16 09:55 80 20 103/53 96 Room Air 12/01/16 09:15 36.6 82 20 126/58 95 Room Air 12/01/16 08:45 Room Air 12/01/16 07:21 36.8 77 16 84/49 94 86/52 95/59 12/01/16 00:00 Room Air 11/30/16 23:32 36.8 75 20 104/62 93 Room Air Physical Exam General Appearance: WD/WN, no apparent distress Eyes: normal inspection, sclerae normal ENT: hearing grossly normal, pharynx normal Neck: no adenopathy, no JVD, no carotid bruits, trachea midline Respiratory/Chest: lungs clear, normal breath sounds, no respiratory distress, no accessory muscle use Cardiovascular: regular rate, rhythm, no edema, no gallop, no murmur Abdomen: normal bowel sounds, non tender, soft, no pulsatile mass, + splenomegaly Extremities: non-tender, normal inspection, no pedal edema, no calf tenderness Neurologic/Psychiatric: alert, normal mood/affect, oriented x 3 Skin: warm/dry, no rash, + pallor Lymphatic: no adenopathy Laboratory Results Last 24 Hours Test 12/01/16 05:07 12/01/16 07:39 12/01/16 17:17 White Blood Count 5.83 K/uL Red Blood Count 3.02 M/uL Hemoglobin 8.3 g/dL Hematocrit 26.2 % Mean Corpuscular Volume 86.8 fL Mean Corpuscular Hemoglobin 27.5 pg Mean Corpuscular Hemoglobin Concent 31.7 g/dl Platelet Count 62 K/uL Neutrophils (%) (Auto) 63.5 % Lymphocytes (%) (Auto) 16.5 % Monocytes (%) (Auto) 6.3 % Eosinophils (%) (Auto) 1.7 % Basophils (%) (Auto) 2.7 % Neutrophils # (Auto) 3.70 K/uL Lymphocytes # (Auto) 0.96 K/uL Monocytes # (Auto) 0.37 K/uL Eosinophils # (Auto) 0.10 K/uL Basophils # (Auto) 0.16 K/uL RDW Standard Deviation 59.9 fL RDW Coefficient of Variation 18.9 % Immature Granulocyte % (Auto) 9.3 % Immature Granulocyte # (Auto) 0.54 K/uL Nucleated RBC Absolute Count (auto) 0.23 K/uL Nucleated Red Blood Cells % 3.9 % Polychromasia 1+ Tear Drop Cells 2+ Prothrombin Time 12.0 SECONDS Prothromb Time International Ratio 1.1 Activated Partial Thromboplast Time 25.3 SECONDS Partial Thromboplastin Ratio 1.0 Sodium Level 145 mmol/L Potassium Level 4.0 mmol/L Chloride Level 110 mmol/L Carbon Dioxide Level 27 mmol/L Anion Gap 8.0 mmol/L Blood Urea Nitrogen 12 mg/dl Creatinine 0.92 mg/dl Est Creatinine Clear Calc Drug Dose 62.4 ml/min Estimated GFR () 79.0 Estimated GFR (Non- 68.2 BUN/Creatinine Ratio 12.6 Random Glucose 96 mg/dl Calcium Level 8.4 mg/dl Magnesium Level 2.1 mg/dl Bedside Glucose 101 mg/dl Assessment and Plan 61 yo female with a 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 Also, she has had a cough and increased shortness of breath, fu-like symptoms and cough prior to GI bleeding, no fevers. On admission she had anemia and a CT of the chest showed infiltrates in right lung and left upper lobe. NPO, Protonix and GI consulted for GI bleed. Started on broad spectrum antibiotics for bilateral pneumonia. - Acute blood loss anemia with upper GI bleed secondary to Esophageal varices: bleeding appears to be stopped, Hb stable at 8.3, blood pressure stable two units ready, will transfuse if hypotensive or Hb drops to 7.0 ECG with : grade II varices in esophagus w/o stigmata of recent bleeding. Red jc signs were present. There was evidence of class B erosive esophagitis.There was a small hiatal hernia. There was no gastric varices. There was no evidence of portal gastropathy. Pt presumably has portal HTN related to hepatomegaly from myelofibrosis. No evidence of portal vein thrombosis. -start propranolol 10mg tid as per GI -Given pt's need for anticoagulation and high risk stigmata, GI plans for EGD tomorrow for banding. Needs Eventual doppler US to look for portal vein thrombosis. 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 Vergara for INR, has appointment for Thursday - Agnogenic myeloid metaplasia: diagnosed 30 years ago, on Jakafi, follows with Dr. Vergara CT scan showing new lytic lesions, progressing when compared to prior scans Oncology consulted for recommendations, she has appointment on Tuesday 12/05-d/ w Dr. Booth today and will order SPEP, JUSTIN, Free kappa lambda light chains - Abnormal EKG, inverted TW in anterolateral and inferior leads: still evident on repeat ECGs, no chest pain and troponin negative x 3 echocardiogram normal excep mild PHTN cannot use antiplatelets due to bleeding feel that changes most likely represent stress from anemia and pneumonia transferred off tele - Depression: resume Celexa 30mg qHS DVT Proph-SCDs Dispo- to home after variceal banding and restart Lovenox with observation overnight for recurrence of bleeding
[2016-12-01] MEDS: CITALOPRAM 20 MG TAB PO SCH (19:32)
[2016-12-01] MEDS: PROPRANOLOL HCL 10 MG TAB PO SCH (19:35)
[2016-12-01 23:20] VITALS: BP 124/71; PULSE 74; TEMP 36.6; O2SAT 94
[2016-12-02 05:22] LABS: MEAN CORPUSCULAR HGB CONC 32.2 g/dl (32-36)
[2016-12-02 05:30] LABS: HEMATOCRIT 25.8 % (37-47); INR 1.1 (0.9-1.1); MEAN CELL VOLUME 85.4 fL (80-100); MEAN CORPUSCULAR HEMOGLOBIN 27.5 pg (25-34); PROTHROMBIN TIME (PATIENT) 11.9 SECONDS (9.0-12.0); RED BLOOD COUNT 3.02 M/uL (4.2-5.4); WHITE BLOOD COUNT 6.82 K/uL (4.8-10.8)
[2016-12-02 05:47] LABS: BUN/CREATININE RATIO 12.2 (10-20); CALCIUM 8.5 mg/dl (8.5-10.1); POTASSIUM 4.1 mmol/L (3.5-5.1)
[2016-12-02 07:15] LABS: PLATELET COUNT 68 K/uL (130-400)
[2016-12-02 07:16] LABS: LARGE PLATELETS 1+; TEAR DROP CELLS 1+
[2016-12-02 07:21] VITALS: BP 108/69; PULSE 79; TEMP 36.7; O2SAT 92
[2016-12-02 07:42] LABS: BASOPHIL % 4.4 %; COMPLETE YES; EOSINOPHIL % 0.9 %; LYMPH ABS # 1.57 K/uL (1.2-3.4); META ABS # 0.48 K/uL (0-0); METAMYELOCYTE % 7.1 %; MYELOCYTE % 0.9 %
[2016-12-02] MEDS: PROPRANOLOL HCL 10 MG TAB PO SCH ×3 (08:00→21:09)
[2016-12-02] MEDS ORDERED: PROPOFOL IV EMULSION 10 MG/ML 20 ML VIAL IV ONE (09:01)
[2016-12-02] MEDS ORDERED: METOPROLOL TARTRATE 1 MG/ML VIAL ONE (09:01)
[2016-12-02] MEDS ORDERED: ETHANOLAMINE OLEATE 5% 2 ML AMP ONE (09:43)
[2016-12-02] MEDS ORDERED: FENTANYL CITRATE INJ 50 MCG/1 ML 2 ML VIAL ONE ×2 (10:03→10:49)
--- NOTE | 2016-12-02 10:21 | Anesthesiology Progress Note ---
Anesthesia Post Op Note Date & Time Dec 02, 2016 at 10:21 Vital Signs Pain Intensity: 0.0 Vital Signs Past 12 Hours Date Time Temp Pulse Resp B/P Pulse Ox O2 Delivery O2 Flow Rate FiO2 12/02/16 08:51 36.5 75 18 121/69 96 Room Air 12/02/16 07:40 Room Air 12/02/16 07:21 36.7 79 16 108/69 92 Room Air 12/02/16 00:00 Room Air 12/01/16 23:20 36.6 74 20 124/71 94 Room Air Notes Mental Status: alert / awake / arousable, participated in evaluation Pt Amnestic to Procedure: Yes Nausea / Vomiting: adequately controlled Pain: adequately controlled Airway Patency, RR, SpO2: stable & adequate BP & HR: stable & adequate Hydration State: stable & adequate Anesthetic Complications: no major complications apparent
[2016-12-02] MEDS ORDERED: LIDOCAINE HCL 2% 2 ML VIAL (20MG/ML) ONE (10:24)
[2016-12-02] MEDS: ONDANSETRON INJ 2 MG/ML 2 ML VIAL IV PRN (12:07)
[2016-12-02 12:33] VITALS: BP 147/81; PULSE 81; TEMP 36.3; O2SAT 100
[2016-12-02] MEDS ORDERED: MoRPHine SULFATE 2 MG/ML CARP ONE (12:36)
[2016-12-02] MEDS ORDERED: NURSING VERBAL MED ORDER ONE (12:45)
[2016-12-02] MEDS ORDERED: MoRPHine SULFATE 2 MG/ML CARP IV PRN (13:00)
[2016-12-02] MEDS: PANTOprazole SOD 40 MG TAB PO SCH ×2 (13:36→21:10)
[2016-12-02] MEDS: LEVOFLOXACIN 500 MG TAB PO SCH (14:26)
--- NOTE | 2016-12-02 15:06 | Hospitalist Progress Note ---
Hospitalist Progress Note Date of Service Dec 02, 2016. Subjective Pt evaluation today including: conversation w/ patient, physical exam, lab review, review of studies, conversation w/ product safety consultant (GI), review of inpatient medication list Pt had EGD today with banding of varices. had significant pain afterwards and nausea, now better after morphine and zofran. has not eaten yet since EGD as was sleeping from morphine. No more bloody stools. Vitals stable Constitutional: No fever Respiratory: No cough, No shortness of breath Cardiovascular: No chest pain Abdomen: + nausea, + pain, No GI bleeding, No diarrhea All Other Systems: Reviewed and Negative Objective Vital Signs Date Time Temp Pulse Resp B/P Pulse Ox O2 Delivery O2 Flow Rate FiO2 12/02/16 12:33 36.3 81 20 147/81 100 Nasal Cannula 1.0 12/02/16 11:26 71 20 124/60 97 Nasal Cannula 3 12/02/16 11:11 75 20 134/61 98 Mask 5 12/02/16 10:56 77 20 134/66 97 Mask 10 12/02/16 10:45 77 20 126/76 96 Room Air 12/02/16 10:30 78 20 122/64 94 Room Air 12/02/16 10:15 78 20 120/62 96 Mask 10 12/02/16 08:51 36.5 75 18 121/69 96 Room Air 12/02/16 07:40 Room Air 12/02/16 07:21 36.7 79 16 108/69 92 Room Air 12/02/16 00:00 Room Air 12/01/16 23:20 36.6 74 20 124/71 94 Room Air 12/01/16 15:15 Room Air Physical Exam General Appearance: WD/WN, no apparent distress Eyes: normal inspection, sclerae normal ENT: hearing grossly normal Neck: trachea midline Respiratory/Chest: lungs clear, normal breath sounds, no respiratory distress, no accessory muscle use Cardiovascular: regular rate, rhythm, no edema, no gallop, no murmur Abdomen: normal bowel sounds, non tender, soft, no pulsatile mass, + splenomegaly Extremities: non-tender, no calf tenderness, + swelling (trace edema left leg) Neurologic/Psychiatric: alert, normal mood/affect Skin: normal color, warm/dry, no rash Laboratory Results Last 24 Hours Test 12/01/16 17:17 12/02/16 04:50 12/02/16 07:16 White Blood Count 6.82 K/uL Red Blood Count 3.02 M/uL Hemoglobin 8.3 g/dL Hematocrit 25.8 % Mean Corpuscular Volume 85.4 fL Mean Corpuscular Hemoglobin 27.5 pg Mean Corpuscular Hemoglobin Concent 32.2 g/dl Platelet Count 68 K/uL RDW Standard Deviation 57.9 fL RDW Coefficient of Variation 18.9 % Nucleated RBC Absolute Count (auto) 0.39 K/uL Neutrophils % (Manual) 62.0 % Lymphocytes % (Manual) 23.0 % Monocytes % (Manual) 1.8 % Eosinophils % (Manual) 0.9 % Basophils % (Manual) 4.4 % Metamyelocytes % 7.1 % Myelocytes % 0.9 % Nucleated Red Blood Cells % 5.7 % Neutrophils # (Manual) 4.23 K/uL Total Absolute Neutrophils 4.23 K/uL Lymphocytes # (Manual) 1.57 K/uL Total Absolute Lymphocytes 1.57 K/uL Monocytes # (Manual) 0.12 K/uL Eosinophils # (Manual) 0.06 K/uL Basophils # (Manual) 0.30 K/uL Metamyelocytes # 0.48 K/uL Myelocytes # 0.06 K/uL Large Platelets 1+ Tear Drop Cells 1+ Prothrombin Time 11.9 SECONDS Prothromb Time International Ratio 1.1 Sodium Level 145 mmol/L Potassium Level 4.1 mmol/L Chloride Level 109 mmol/L Carbon Dioxide Level 29 mmol/L Anion Gap 7.0 mmol/L Blood Urea Nitrogen 12 mg/dl Creatinine 1.00 mg/dl Est Creatinine Clear Calc Drug Dose 57.4 ml/min Estimated GFR () 71.4 Estimated GFR (Non- 61.6 BUN/Creatinine Ratio 12.2 Random Glucose 91 mg/dl Calcium Level 8.5 mg/dl Magnesium Level 2.0 mg/dl Bedside Glucose 96 mg/dl Diagnostic Results EGD report reviewed Assessment and Plan 61 yo female with a 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 Also, she has had a cough and increased shortness of breath, fu-like symptoms and cough prior to GI bleeding, no fevers. On admission she had anemia and a CT of the chest showed infiltrates in right lung and left upper lobe. NPO, Protonix and GI consulted for GI bleed. Started on broad spectrum antibiotics for bilateral pneumonia. INR reversed to 1.4 after Vitamin K upon admission - Acute blood loss anemia with upper GI bleed secondary to Esophageal varices: bleeding appears to be stopped, Hb stable x 4 days at 8.3, blood pressure stable two units ready, will transfuse if hypotensive or Hb drops to 7.0 ECG with : grade II varices in esophagus w/o stigmata of recent bleeding. Red jc signs were present. There was evidence of class B erosive esophagitis.There was a small hiatal hernia. There was no gastric varices. There was no evidence of portal gastropathy. Pt presumably has portal HTN related to hepatomegaly from myelofibrosis. No evidence of portal vein thrombosis. EGD 12/02 for banding of varices completed. 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 Vergara , has appointment for Thursday - Agnogenic myeloid metaplasia, anemia, thrombocytopenia: diagnosed 30 years ago , on Jakafi, follows with Dr. Vergara. Thrombocytopenia may also be from cirrhosis , splenomegaly CT scan showing new lytic lesions, progressing when compared to prior scans Oncology consulted for recommendations, she has appointment on Tuesday 12/05-d/ w Dr. Booth and ordered SPEP, JUSTIN, Free kappa lambda light chains which are pending Follow CBC as outpatient - Abnormal EKG, inverted TW in anterolateral and inferior leads: still evident on repeat ECGs, no chest pain and troponin negative x 3 echocardiogram normal excep mild PHTN cannot use antiplatelets due to bleeding feel that changes most likely represent stress from anemia and pneumonia transferred off tele - Depression: resume Celexa 30mg qHS DVT Proph-SCDs Dispo- to home tomorrow if pain and nausea controlled, effie po
[2016-12-02 15:16] VITALS: BP 146/81; PULSE 81; TEMP 36.8; O2SAT 98
[2016-12-02] MEDS: CITALOPRAM 20 MG TAB PO SCH (21:10)
[2016-12-02 23:41] VITALS: BP 101/56; PULSE 81; TEMP 36.9; O2SAT 90
[2016-12-03 05:40] LABS: MEAN CORPUSCULAR HGB CONC 32.1 g/dl (32-36)
[2016-12-03 05:56] LABS: HEMATOCRIT 26.2 % (37-47); MEAN CELL VOLUME 85.3 fL (80-100); MEAN CORPUSCULAR HEMOGLOBIN 27.4 pg (25-34); RED BLOOD COUNT 3.07 M/uL (4.2-5.4); WHITE BLOOD COUNT 6.25 K/uL (4.8-10.8)
[2016-12-03 06:10] LABS: BUN/CREATININE RATIO 10.5 (10-20); CALCIUM 8.3 mg/dl (8.5-10.1); CREATININE 0.91 mg/dl (0.60-1.20); MAGNESIUM 1.8 mg/dl (1.8-2.4)
[2016-12-03 07:15] VITALS: BP 99/58; PULSE 74; TEMP 36.6; O2SAT 95
[2016-12-03] MEDS: PANTOprazole SOD 40 MG TAB PO SCH (07:36)
[2016-12-03] MEDS: PROPRANOLOL HCL 10 MG TAB PO SCH ×2 (07:36→14:08)
[2016-12-03 08:12] LABS: PLATELET COUNT 73 K/uL (130-400)
[2016-12-03 08:18] LABS: BASO ABS # 0.16 K/uL (0-0.2); BASOPHIL % 2.6 %; EOSINOPHIL % 0.9 %; LYMPH ABS # 0.98 K/uL (1.2-3.4); LYMPHOCYTE % 15.7 %; META ABS # 0.22 K/uL (0-0); METAMYELOCYTE % 3.5 %; MYELOCYTE % 6.1 %; NEUTROPHILS % 67.7 %; PLT ESTIMATE DECREASED; POLYCHROMASIA 1+; TEAR DROP CELLS 2+
--- NOTE | 2016-12-03 09:42 | Hematology/Oncology Prog Note ---
Hematology/Onc Progress Note Date of Service Dec 03, 2016. Diagnoses Myelofibrosis Splenomegaly GI Bleed Medications Medications Administered Medications (Trade) Dose Ordered Sig/Keith Route Start Time Stop Time Status Last Admin Dose Admin Pantoprazole Sodium 1 ea 1 ea NOW STAT IV 11/28/16 18:35 11/28/16 18:38 DC 11/28/16 19:40 1 EA Sodium Chloride 1,000 ml @ 999 mls/hr Q1H1M STAT IV 11/28/16 18:35 11/28/16 19:35 DC 11/28/16 19:40 999 MLS/HR Pantoprazole Sodium 80 mg/ Dextrose 120 ml @ 480 mls/hr 1900 ONCE IV 11/28/16 19:00 11/28/16 19:14 DC 11/28/16 19:13 480 MLS/HR Pantoprazole Sodium 40 mg/ Dextrose 100 ml @ 20 mls/hr Q5H IV 11/28/16 19:15 11/29/16 00:14 DC 11/28/16 19:33 20 MLS/HR Phytonadione 10 mg/Sodium Chloride 51 ml @ 102 mls/hr ONE STAT IV 11/28/16 19:51 11/28/16 20:20 DC 11/28/16 20:16 102 MLS/HR Vancomycin HCl/ Sodium Chloride (Vancomycin Inj/ Nss 500ml) 532 ml @ 200 mls/hr TODAY@2030 ONCE IV 11/28/16 20:30 11/28/16 23:09 DC 11/28/16 23:47 200 MLS/HR Levofloxacin (Levaquin / D5W) 750 mg NOW STAT IV 11/28/16 19:51 11/28/16 19:57 DC 11/28/16 21:42 750 MG Piperacillin Sod/ Tazobactam Sod 4.5 gm 4.5 gm NOW STAT IV 11/28/16 19:51 11/28/16 19:57 DC 11/28/16 20:16 4.5 GM Potassium Chloride/Sodium Chloride 1,000 ml @ 50 mls/hr Q20H IV 11/28/16 21:34 11/29/16 17:28 DC 11/29/16 07:46 100 MLS/HR Piperacillin Sod/ Tazobactam Sod 3.375 gm/Dextrose 115 ml @ 28.75 mls/ hr Q8H IV 11/29/16 02:00 11/29/16 12:07 DC 11/29/16 10:00 28.75 MLS/HR Levofloxacin/Prmx (Levaquin / D5W/ Premixed D5W) 100 ml @ 100 mls/hr Q24H IV 11/29/16 22:00 11/30/16 09:30 DC 11/29/16 21:39 100 MLS/HR Lorazepam (Ativan Inj) 0.5 mg Q4H PRN IV 11/28/16 20:30 12/28/16 20:29 12/02/16 12:[address] (Atrovent 0.02% 0.5MG/2.5ML Neb) 0.5 mg Q6R INH 11/28/16 21:00 11/29/16 10:30 DC 11/29/16 03:27 0.5 MG Levalbuterol 1.25 mg 1.25 mg Q6R INH 11/28/16 21:00 11/29/16 09:44 DC 11/29/16 03:27 1.25 MG Pantoprazole Sodium/Dextrose (Protonix Inj/D5 100ml) 100 ml @ 20 mls/hr Q5H IV 11/29/16 00:15 11/29/16 15:24 DC 11/29/16 09:59 20 MLS/HR Ondansetron HCl (Zofran Inj) 4 mg Q6H PRN IV 11/28/16 22:30 12/28/16 22:29 12/02/16 12:07 4 MG Pantoprazole Sodium (Protonix Tab) 40 mg BID PO 11/29/16 21:00 12/29/16 20:59 12/03/16 07:36 40 MG Levofloxacin (Levaquin Tab) 500 mg DAILY@11 PO 11/30/16 16:00 12/02/16 15:04 DC 12/02/16 14:26 500 MG Citalopram Hydrobromide (celeXA TAB) 30 mg HS PO 11/30/16 21:00 12/30/16 20:59 12/02/16 21:10 30 MG Propranolol HCl (Inderal Tab) 10 mg TID PO 12/01/16 20:00 12/31/16 19:59 12/03/16 07:36 10 MG Morphine Sulfate (MoRPHine SULFATE INJ) 2 mg STK-MED ONCE .ROUTE 12/02/16 12:36 12/02/16 12:39 DC 12/02/16 12:43 2 MG Morphine Sulfate (MoRPHine SULFATE INJ) 2 mg Q4H PRN IV 12/02/16 13:00 12/16/16 12:59 12/02/16 17:40 2 MG Subjective Ms. Roy underwent repeat EGD yesterday for banding of her grade II varices. She had some discomfort following the procedure, but her hematochezia has resolved. She has no other particular complaints today. Notably, despite her massive splenomegaly, she denies any early satiety, nausea, bloating, or discomfort. Review of Systems: Constitutional: No chills, No fever ENT: No unusual epistaxis Respiratory: No cough, No shortness of breath Cardiovascular: No chest pain, No edema Abdomen: No GI bleeding, No nausea, No pain, No vomiting Musculoskeletal: No joint pain, No muscle pain Female : No dysuria, No urinary frequency Neurologic: No numbness/tingling, No weakness Heme: No abnormal bleeding/bruising Skin: No rash Vital Signs Vital Signs Past 12 Hours Date Time Temp Pulse Resp B/P Pulse Ox O2 Delivery O2 Flow Rate FiO2 12/03/16 07:15 36.6 74 16 99/58 95 Room Air 12/03/16 00:00 Room Air 12/02/16 23:41 36.9 81 18 101/56 90 Room Air Physical Exam Constitutional: General Apperance: heathly-appearing Level of Distress: NAD Psychiatric: Mental Status: active & alert Orientation: oriented except where noted Lungs: Respiratory Effort: no dyspnea Auscuitation: breath sounds normal Cardiovascular: Heart Auscultation: RRR, no murmurs Abdomen: Inspection & Palpation: soft, no tenderness, guarding & rebound Liver: pertinent finding (marked splenomegaly) Extremities: no edema Laboratory Last 24 Hours Test 12/03/16 05:05 12/03/16 07:26 White Blood Count 6.25 K/uL Red Blood Count 3.07 M/uL Hemoglobin 8.4 g/dL Hematocrit 26.2 % Mean Corpuscular Volume 85.3 fL Mean Corpuscular Hemoglobin 27.4 pg Mean Corpuscular Hemoglobin Concent 32.1 g/dl Platelet Count 73 K/uL RDW Standard Deviation 57.8 fL RDW Coefficient of Variation 18.8 % Nucleated RBC Absolute Count (auto) 0.47 K/uL Neutrophils % (Manual) 67.7 % Lymphocytes % (Manual) 15.7 % Monocytes % (Manual) 2.6 % Eosinophils % (Manual) 0.9 % Basophils % (Manual) 2.6 % Metamyelocytes % 3.5 % Myelocytes % 6.1 % Blast Cells % 0.9 % Nucleated Red Blood Cells % 7.5 % Neutrophils # (Manual) 4.23 K/uL Total Absolute Neutrophils 4.23 K/uL Lymphocytes # (Manual) 0.98 K/uL Total Absolute Lymphocytes 0.98 K/uL Monocytes # (Manual) 0.16 K/uL Eosinophils # (Manual) 0.06 K/uL Basophils # (Manual) 0.16 K/uL Metamyelocytes # 0.22 K/uL Myelocytes # 0.38 K/uL Blast Cells # 0.06 K/uL Platelet Estimate DECREASED Polychromasia 1+ Tear Drop Cells 2+ Sodium Level 142 mmol/L Potassium Level 4.0 mmol/L Chloride Level 107 mmol/L Carbon Dioxide Level 27 mmol/L Anion Gap 8.0 mmol/L Blood Urea Nitrogen 10 mg/dl Creatinine 0.91 mg/dl Est Creatinine Clear Calc Drug Dose 63.1 ml/min Estimated GFR () 80.0 Estimated GFR (Non- 69.1 BUN/Creatinine Ratio 10.5 Random Glucose 86 mg/dl Calcium Level 8.3 mg/dl Magnesium Level 1.8 mg/dl Total Bilirubin 1.3 mg/dl Direct Bilirubin 0.3 mg/dl Aspartate Amino Transf (AST/SGOT) 25 U/L Alanine Aminotransferase (ALT/SGPT) 15 U/L Alkaline Phosphatase 148 U/L Total Protein 6.1 gm/dl Albumin 3.0 gm/dl Bedside Glucose 95 mg/dl Assessment & Plan Ms. Roy has some grade II varices, likely the result of her hepatosplenomegaly related to her myelofibrosis. She has undergone banding and, given her need for anticoagulation, Dr. De is planning another banding procedure in a few weeks. Dr. Lozano and I reviewed her history of thrombosis and it is significant. 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 Given this thrombotic risk and what Dr. De feels is modest risk of bleeding from her varices, I believe the overall risk:benefit ratio favors continued anticoagulation. Because of her upcoming procedure, Dr. De prefers she go home on Lovenox until after the EGD, at which point she can transition back to Coumadin. I think this is reasonable. She has an appointment with Dr. Vergara on Thursday and should keep it, provided she is out of the hospital by then.
[2016-12-03 10:36] LABS: COMPLETE YES
--- NOTE | 2016-12-03 11:17 | Gastroenterology Progress Note ---
Progress Note Date of Service: Dec 03, 2016 Subjective Pt evaluation today including: conversation w/ patient, physical exam, chart review, lab review, review of studies, review of inpatient medication list Ms. Roy is a 61 yr old female with a hx of myelofibrosis, splenomegaly who was admitted on 11/28 for melena who underwent EGD on 12/01 and 12/02 with findings of grade 2 esophageal varices secondary to splenomegaly and recommendation to begin beta blockage as well as repeat EGD in 2 weeks for further banding. Pt's Hb 8.4; down from 10.6 on arrival, no transfusions. Feeling well today. One bossman stool yesterday, one small brown BM this morning. Review of Systems Constitutional: No fatigue, No fever, No weakness, No weight loss Respiratory: No cough, No dyspnea on exertion, No shortness of breath, No wheezing Cardiac: No chest pain Abdomen: + GI bleeding (resolving), + problem reported (mildly, chronically distended), No diarrhea, No nausea, No pain, No vomiting Female : No dysuria Neuro: No memory loss Psych: No depression symptoms Heme: No abnormal bleeding/bruising Endo: No fatigue Skin: No rash Medications Current Inpatient Medications Medications (Trade) Dose Ordered Sig/Keith Route Start Time Stop Time Status Last Admin Dose Admin Diphenhydramine HCl (Benadryl Inj) 50 mg Q6H PRN IV 11/28/16 20:30 12/28/16 20:29 Lorazepam 0.5 mg 0.5 mg Q4H PRN IV 11/28/16 20:30 12/28/16 20:29 12/02/16 12:27 0.5 MG Lorazepam/Syringe (Ativan Inj/ Syringe) 1 ml @ 1 mls/min Q4H PRN IV 11/28/16 20:45 12/28/16 20:44 Ipratropium [place] (Atrovent 0.02% 0.5MG/2.5ML Neb) 0.5 mg Q2H PRN INH 11/28/16 21:00 12/28/16 20:59 Levalbuterol (Xopenex 1.25MG/ 0.5ML Neb) 1.25 mg Q2H PRN INH 11/28/16 21:00 12/28/16 20:59 Ondansetron HCl 4 mg 4 mg Q6H PRN IV 11/28/16 22:30 12/28/16 22:29 12/02/16 12:07 4 MG Acetaminophen (Ofirmev Iv) 100 ml @ 400 mls/hr Q8H PRN IV 11/28/16 22:30 12/28/16 22:29 Pantoprazole Sodium (Protonix Tab) 40 mg BID PO 11/29/16 21:00 12/29/16 20:59 12/03/16 07:36 40 MG Citalopram Hydrobromide (celeXA TAB) 30 mg HS PO 11/30/16 21:00 12/30/16 20:59 12/02/16 21:10 30 MG Propranolol HCl (Inderal Tab) 10 mg TID PO 12/01/16 20:00 12/31/16 19:59 12/03/16 07:36 10 MG Morphine Sulfate (MoRPHine SULFATE INJ) 2 mg Q4H PRN IV 12/02/16 13:00 12/16/16 12:59 12/02/16 17:40 2 MG Objective Vital Signs Date Time Temp Pulse Resp B/P Pulse Ox O2 Delivery O2 Flow Rate FiO2 12/03/16 08:00 Room Air 12/03/16 07:15 36.6 74 16 99/58 95 Room Air 12/03/16 00:00 Room Air 12/02/16 23:41 36.9 81 18 101/56 90 Room Air 12/02/16 20:00 Room Air 12/02/16 15:54 Nasal Cannula 2.0 12/02/16 15:16 36.8 81 18 146/81 98 Nasal Cannula 2.0 12/02/16 12:33 36.3 81 20 147/81 100 Nasal Cannula 1.0 12/02/16 11:26 71 20 124/60 97 Nasal Cannula 3 12/02/16 11:11 75 20 134/61 98 Mask 5 Physical Exam General Appearance: no apparent distress ENT: pharynx normal Neck: thyroid normal, no JVD Respiratory/Chest: lungs clear Cardiovascular: regular rate, rhythm, no JVD, no murmur Abdomen: soft, + distended (mild) Extremities: no pedal edema Neurologic/Psych: alert, normal mood/affect, oriented x 3 Skin: normal color, no jaundice, warm/dry, no rash Laboratory Results Last 24 Hours Test 12/03/16 05:05 12/03/16 07:26 White Blood Count 6.25 K/uL Red Blood Count 3.07 M/uL Hemoglobin 8.4 g/dL Hematocrit 26.2 % Mean Corpuscular Volume 85.3 fL Mean Corpuscular Hemoglobin 27.4 pg Mean Corpuscular Hemoglobin Concent 32.1 g/dl Platelet Count 73 K/uL RDW Standard Deviation 57.8 fL RDW Coefficient of Variation 18.8 % Nucleated RBC Absolute Count (auto) 0.47 K/uL Neutrophils % (Manual) 67.7 % Lymphocytes % (Manual) 15.7 % Monocytes % (Manual) 2.6 % Eosinophils % (Manual) 0.9 % Basophils % (Manual) 2.6 % Metamyelocytes % 3.5 % Myelocytes % 6.1 % Blast Cells % 0.9 % Nucleated Red Blood Cells % 7.5 % Neutrophils # (Manual) 4.23 K/uL Total Absolute Neutrophils 4.23 K/uL Lymphocytes # (Manual) 0.98 K/uL Total Absolute Lymphocytes 0.98 K/uL Monocytes # (Manual) 0.16 K/uL Eosinophils # (Manual) 0.06 K/uL Basophils # (Manual) 0.16 K/uL Metamyelocytes # 0.22 K/uL Myelocytes # 0.38 K/uL Blast Cells # 0.06 K/uL Platelet Estimate DECREASED Polychromasia 1+ Tear Drop Cells 2+ Sodium Level 142 mmol/L Potassium Level 4.0 mmol/L Chloride Level 107 mmol/L Carbon Dioxide Level 27 mmol/L Anion Gap 8.0 mmol/L Blood Urea Nitrogen 10 mg/dl Creatinine 0.91 mg/dl Est Creatinine Clear Calc Drug Dose 63.1 ml/min Estimated GFR () 80.0 Estimated GFR (Non- 69.1 BUN/Creatinine Ratio 10.5 Random Glucose 86 mg/dl Calcium Level 8.3 mg/dl Magnesium Level 1.8 mg/dl Total Bilirubin 1.3 mg/dl Direct Bilirubin 0.3 mg/dl Aspartate Amino Transf (AST/SGOT) 25 U/L Alanine Aminotransferase (ALT/SGPT) 15 U/L Alkaline Phosphatase 148 U/L Total Protein 6.1 gm/dl Albumin 3.0 gm/dl Bedside Glucose 95 mg/dl WBC 6.25, Hb 8.4, Platelets 73, Na 142, K 4.6, BUN 10, Cr 0.9. CT abd/pelvis on 11/28. 1. Slight improvement in the massive splenomegaly. 2. Otherwise, no significant change compared the prior study with additional findings as described above. 3. No bowel wall thickening or obstruction. 4. Normal appendix. 5. Diffuse skeletal sclerosis with scattered lucent lesions are again noted. This is consistent with mild fibrosis Assessment and Plan 1. No GI contraindication to DC. 2. Pt needs doppler uls to r/o portal vein thrombosis which could be completed during this hospitalization or as an OP. 3. Pt needs a f/u EGD in 2 weeks to complete variceal banding. 4. Continue Protonix 40mg BID on DC. Attg addendum: I interviewed and examined pt, reviewed chart and labs. Pt with improved odynophagia, stable hgb. Ok for d/c. Please d/c on TID propanolol. May resume anti coag with lovenox Sat. We will arrange for f/u egd and outpt w/ u liver disease.
[2016-12-03] MEDS ORDERED: NURSING VERBAL MED ORDER ONE (12:30)
[2016-12-03] MEDS ORDERED: ACETAMINOPHEN 325 MG TAB PO ONE (12:45)
[2016-12-03] MEDS: ONDANSETRON INJ 2 MG/ML 2 ML VIAL IV PRN (12:56)
[2016-12-03 13:01] VITALS: BP 111/70; PULSE 86; O2SAT 90
[2016-12-03] MEDS ORDERED: PROP10TA54 PO (13:57)
[2016-12-03] MEDS ORDERED: ENOX60IN SQ (13:57)
[2016-12-03] MEDS ORDERED: PRT40 PO (13:57)
[2016-12-03 14:08] LABS: HEMATOCRIT 29.1 % (37-47)
[2016-12-03 14:35] VITALS: BP 111/70; PULSE 86; TEMP 36.6; O2SAT 90
--- NOTE | 2016-12-03 15:10 | Discharge Instructions ---
Discharge Instructions Date of Service Dec 03, 2016. Admission Reason for Admission: Pneumonia, Upper Gi Bleed Discharge Discharge Diagnosis / Problem: Upper GI bleed,Esophageal varices, Pneumonia Discharge Goals Goal(s): Improve disease control, Diagnostic testing, Therapeutic intervention Activity Recommendations Activity Limitations: resume your previous activity Exercise/Sports Limitations: as tolerated Shower/Bathe: no limitations Driving or Machine Use: no limitations . Instructions / Follow-Up Instructions / Follow-Up You were admitted with GI bleeding presumed to be from esophageal varices which were subsequently banded. Your coumadin was stopped and you were given Vitamin K to reverse the effects of the coumadin. It is safe for you to restart Lovenox ONLY on 12/05/16 twice daily and then hold it prior to your next EGD for banding of your varices in 2 weeks approximately as directed by Dr. De. The varices are from problems with your liver and spleen likely related to your myelofibrosis. Please follow up with GI within 2 weeks. They are also recommending you have an ultrasound of your portal veins as an outpatient and GI can order this for you when you see them. You should continue on the antacid Protonix twice daily and propranolol for your esophageal varices three times a day as directed. As for your pneumonia, you were treated with an antibiotic called Levaquin and had improvement of your symptoms. Your CT of the chest showed some nodules in the lungs in addition to the pneumonia. It is recommended that you have a repeat CT chest in 1-2 months to ensure this is all cleared up. You were also found to have an increase in bone lesions on your CT scans and a test for multiple myeloma was done and was still pending at the time of discharge. You should keep your follow up appointment with Dr. Vergara for in 2 days. You should have your blood count repeated when you see Dr. Vergara as well and can go over the results of your labs then. Please follow up with your PCP within 1 week as well. Current Hospital Diet Patient's current hospital diet: Regular Diet Discharge Diet Recommended Diet: Regular Diet Procedures Procedures Performed: EGD with Banding CT Chest, abdomen,pelvis Head CT Chest xray Pending Studies Studies pending at discharge: yes List of pending studies: SPEP, JUSTIN, [place] lambda free light chains Laboratory Results Last 24 Hours Test 12/03/16 05:05 12/03/16 07:26 12/03/16 14:02 White Blood Count 6.25 K/uL Red Blood Count 3.07 M/uL Hemoglobin 8.4 g/dL 9.6 g/dL Hematocrit 26.2 % 29.1 % Mean Corpuscular Volume 85.3 fL Mean Corpuscular Hemoglobin 27.4 pg Mean Corpuscular Hemoglobin Concent 32.1 g/dl Platelet Count 73 K/uL RDW Standard Deviation 57.8 fL RDW Coefficient of Variation 18.8 % Nucleated RBC Absolute Count (auto) 0.47 K/uL Neutrophils % (Manual) 67.7 % Lymphocytes % (Manual) 15.7 % Monocytes % (Manual) 2.6 % Eosinophils % (Manual) 0.9 % Basophils % (Manual) 2.6 % Metamyelocytes % 3.5 % Myelocytes % 6.1 % Blast Cells % 0.9 % Nucleated Red Blood Cells % 7.5 % Neutrophils # (Manual) 4.23 K/uL Total Absolute Neutrophils 4.23 K/uL Lymphocytes # (Manual) 0.98 K/uL Total Absolute Lymphocytes 0.98 K/uL Monocytes # (Manual) 0.16 K/uL Eosinophils # (Manual) 0.06 K/uL Basophils # (Manual) 0.16 K/uL Metamyelocytes # 0.22 K/uL Myelocytes # 0.38 K/uL Blast Cells # 0.06 K/uL Platelet Estimate DECREASED Polychromasia 1+ Tear Drop Cells 2+ Sodium Level 142 mmol/L Potassium Level 4.0 mmol/L Chloride Level 107 mmol/L Carbon Dioxide Level 27 mmol/L Anion Gap 8.0 mmol/L Blood Urea Nitrogen 10 mg/dl Creatinine 0.91 mg/dl Est Creatinine Clear Calc Drug Dose 63.1 ml/min Estimated GFR () 80.0 Estimated GFR (Non- 69.1 BUN/Creatinine Ratio 10.5 Random Glucose 86 mg/dl Calcium Level 8.3 mg/dl Magnesium Level 1.8 mg/dl Total Bilirubin 1.3 mg/dl Direct Bilirubin 0.3 mg/dl Aspartate Amino Transf (AST/SGOT) 25 U/L Alanine Aminotransferase (ALT/SGPT) 15 U/L Alkaline Phosphatase 148 U/L Total Protein 6.1 gm/dl Albumin 3.0 gm/dl Bedside Glucose 95 mg/dl Medical Emergencies . Who to Call and When: Medical Emergencies: If at any time you feel your situation is an emergency, please call 911 immediately. . Non-Emergent Contact Non-Emergency issues call your: Primary Care Provider, Acid Concentrator, Oncologist Call Non-Emergent contact if: you have a fever, your pain is not controlled, your pain is worsening, your pain is unusual for you, your pain is concerning you, you have any medication questions or if you have return of black tarry stools or bright red bleeding from the rectum, vomiting blood. Go to ER if those symptoms occur. If you have chest pains, shortness of breath, leg swelling or severe headache, go to the ER immediately. . . "Provider Documentation" section prepared by Yulissa Lozano. VTE Core Measure Inpt VTE Proph given/why not?: SCD's
--- NOTE | 2016-12-03 20:34 | Discharge Summary ---
Discharge Summary Date of Service Dec 03, 2016. Discharge Summary Admission Date: Nov 28, 2016 at 20:20 Discharge Date: Dec 03, 2016 Discharge Disposition: Home Principal Diagnosis: Upper GI Bleed, Pneumonia Problems/Secondary Diagnoses: Acute blood loss anemia Agnogenic myeloid metaplasia Splenomegaly Thrombocytopenia Anemia Grade II Esophageal varices Class B erosive esophagitis Hiatal hernia Portal HTN related to hepatomegaly from myelofibrosis History of PE/DVTs Lytic bone lesions Abnormal EKG, inverted TW in anterolateral and inferior leads Mild suggested Pulmonary HTN Depression Immunizations: Have You Had Influenza Vaccine: Yes History of Tetanus Vaccine?: Yes History of Pneumococcal: Yes History of Hepatitis B Vaccine: No Procedures: Head CT: No acute intracranial abnormality CHEST CTA for PULMONARY ARTERIES COMPARISON STUDY: Chest CTA 06/18/2010. FINDINGS: There is a normal caliber thoracic aorta with no evidence for dissection. Trace pericardial effusion, unchanged. The heart is normal in size. No pleural effusions. 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 Otherwise, the remaining pulmonary arteries are patent with no evidence for pulmonary embolus. Increased sclerosis seen throughout the visualized osseous structures consistent with the patient's history of myelofibrosis. There are also multiple scattered subcentimeter lytic lesions seen throughout the visualized osseous structures. This is also progressed. Stable partially calcified nodule within the left breast which measures 12 mm. The long-term stability favors a fibroadenoma. No mediastinal or hilar lymphadenopathy. No pneumothorax. There are multiple scattered patchy and nodular airspace opacities seen within the right lung and left upper lobe. Dominant focal area of peripheral consolidation within the right upper lobe measures 5.6 cm. Dominant nodule within the right lower lobe on image 130 measures 17 mm. IMPRESSION: 1. No evidence for acute pulmonary embolus. There is chronic occlusion of the left lower lobe pulmonary arteries, unchanged. 2. Multifocal patchy and nodular airspace opacities seen within the right lung and left upper lobe as described above. This favors an infectious process. However, recommend one to [address] follow-up to ensure resolution. Specifically, the scattered nodules require follow-up to ensure resolution or stability. 3. Progression of the diffuse bony sclerosis and multiple lytic lesions. This may represent a combination of myelofibrosis and multiple myeloma. CHEST ONE VIEW PORTABLE HISTORY: Shortness of breath. COMPARISON: Chest 04/26/2009. FINDINGS: Small focal peripheral airspace opacity within the right upper lobe. The left lung is clear. The heart is normal in size. No pleural effusions. No pneumothorax. IMPRESSION: Small focal peripheral airspace opacity within the right upper lobe. This could be due to overlapping soft tissues. This will be further assessed on the same day chest CT. ABDOMEN AND PELVIS CT WITH IV CONTRAST COMPARISON STUDY: Abdomen and pelvis CT 09/17/2015. FINDINGS: No pneumoperitoneum. No pneumatosis. There is again noted diffuse sclerosis and scattered lytic lesions seen throughout the visualized osseous structures. This is similar to the prior study. Massive splenomegaly has slightly improved. No hepatic masses. The gallbladder, pancreas, adrenal glands, and kidneys are unremarkable. No hydronephrosis. No retroperitoneal lymphadenopathy. 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 Mild fat stranding surrounding the inferior mesenteric artery is not significant changed. The bladder, uterus, and bilateral adnexa are unremarkable. No bowel wall thickening or obstruction. Normal appendix. IMPRESSION: 1. Slight improvement in the massive splenomegaly. 2. Otherwise, no significant change compared the prior study with additional findings as described above. 3. No bowel wall thickening or obstruction. 4. Normal appendix. 5. Diffuse skeletal sclerosis with scattered lucent lesions are again noted. This is consistent with mild fibrosis. Consultations: Gastroenterology Hematology/Oncology Medication Reconciliation New Medications: Enoxaparin (Lovenox) 60 Mg/0.6 Ml Inj 60 MG SQ BID, #60 SYR DO NOT START TAKING UTIL THURSDAY AM 12/05/16 Pantoprazole (Pantoprazole Sodium) 40 Mg Tab 40 MG PO BID, #60 TAB Propranolol HCl (Propranolol HCl) 10 Mg Tab 10 MG PO TID, #90 TAB Continued Medications: Cholecalciferol (Vitamin D) 2,000 Unit Cap 2000 UNIT PO QPM Citalopram Hydrobromide (Celexa) 10 Mg Tab 15 MG PO QPM, TAB Ruxolitinib Phosphate (Jakafi) 5 Mg Tab 1 TAB PO BID Discontinued Medications: Lansoprazole (Prevacid) 15 Mg Cap 15 MG PO QPM, CAP Warfarin Sodium (Coumadin) 6 Mg Tab 6 MG PO 6XWK, TAB Warfarin Sodium (Coumadin) 5 Mg Tab 7 MG PO 1xweek, TAB FRIDAYS Referrals At Discharge Follow up Referrals: Sanitation Truck Driver Referral - Within 2 Weeks with Agueda De M.D. Oncology/Hematology Referral - Within 1 Week with Manny Vergara D.O. Physician Referral - Within 1 Week with Shira Yarbrough MD Discharge Exam Pt had some nausea after eating today and then developed a moderate headache that resolved after taking some tylenol. SHe had a darker BM today but repeat Hgb prior to discharge actually went up and not down. No abd pain, no more headache, no N/V, feeling well. No CP or SOB, no calf pain. Review of Systems: Constitutional: No fever Eyes: No problem reported ENT: No problem reported Respiratory: No shortness of breath Cardiovascular: No chest pain Abdomen: No GI bleeding, No constipation, No diarrhea, No nausea, No pain, No vomiting Musculoskeletal: No problem reported Genitourinary - Female: No problem reported Neurologic: No problem reported Psychiatric: No problem reported Endocrine: No problem reported Hematologic / Lymphatic: + clotting problems Integumentary: No problem reported Physical Exam: General Appearance: WD/WN, no apparent distress Eyes: normal inspection, sclerae normal ENT: hearing grossly normal Neck: trachea midline Respiratory/Chest: lungs clear, normal breath sounds, no respiratory distress, no accessory muscle use Cardiovascular: regular rate, rhythm, no edema, no gallop, no murmur, normal peripheral pulses Abdomen / GI: normal bowel sounds, non tender, soft, + splenomegaly Extremities: normal inspection, no calf tenderness, normal capillary refill , no pedal edema, normal range of motion Neurologic/Psychiatric: alert, normal mood/affect, oriented x 3 Skin: normal color, warm/dry, no rash Hospital Course This patient is a 61 yo female with a history of agnogenic myeloid metaplasia characterized by splenomegaly, thrombocytopenia and anemia , treated with Jakafi , presented with melena for 3 days, foul smelling very dark stools, some epigastric pain. Also, she has had a cough and increased shortness of breath, flu-like symptoms and cough prior to GI bleeding, no fevers. On admission she had anemia with a Hgb f [address] of the chest showed infiltrates in right lung and left upper lobe. She was mad NPO, given a drip of Protonix, and GI consulted for GI bleed. Started on broad spectrum antibiotics for bilateral pneumonia. INR reversed to 1.4 after Vitamin K upon admission. - Acute blood loss anemia with upper GI bleed secondary to Esophageal varices: bleeding appears to be stopped, Hgb stable x 4 days at 8.3-9.6, blood pressure stable, was not transfused. ECG with : grade II varices in esophagus w/o stigmata of recent bleeding. Red jc signs were present. There was evidence of class B erosive esophagitis.There was a small hiatal hernia. There was no gastric varices. There was no evidence of portal gastropathy. Pt presumably has portal HTN related to hepatomegaly from myelofibrosis. No evidence of portal vein thrombosis. EGD 12/02 for banding of varices completed. -continue propranolol 10mg tid as per GI -Given pt's need for anticoagulation and high risk stigmata, GI plans for serial banding of varices again in 2 weeks but can restart Lovenox only (not coumadin) in 3 days on 12/05/16. Will give Lovenox 60mg SQ bid as weight on scale on day of discharge was actually 64 kg (documented incorrectly in vitals section of EMR) Needs doppler US to look for portal vein thrombosis and workup for cirrhosis as outpatient with GI Continue Protonix 40mg PO BID - Bilateral pneumonia, bacterial vs viral etiology/ Pulmonary Nodules: Started on broad spectrum antibiotics initially, then narrowed down to Levaquin 500mg daily x 5 day total course, had some mild hypoxia, no tachypnea. POx with ambulation on day of discharge was 93% and she did not require oxygen. She will need a repeat CT Chest in 1-2 months for f/u on Pulm nodules and to ensure the consolidation is resolved. 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 Will resume full anticoagulation with Lovenox only as above patient follows with Dr. Vergara , has appointment for Thursday - Agnogenic myeloid metaplasia, anemia, thrombocytopenia, Lytic and sclerotic bony lesions: diagnosed 30 years ago, on Jakafi, follows with Dr. Vergara. Thrombocytopenia may also be from cirrhosis, splenomegaly CT scan showing new lytic lesions, progressing when compared to prior scans Oncology consulted for recommendations, she has appointment on Tuesday 12/05-d/ w Dr. Booth and ordered SPEP, JUSTIN, Free kappa lambda light chains which are pending Follow CBC as outpatient - Abnormal EKG, inverted TW in anterolateral and inferior leads: still evident on repeat ECGs, no chest pain and troponin negative x 3 echocardiogram normal excep mild PHTN cannot use antiplatelets due to bleeding feel that changes most likely represent stress from anemia and pneumonia transferred off tele - Depression: resume Celexa DVT Proph-SCDs Dispo- to home today Total Time Spent: Greater than 30 minutes This includes examination of the patient, discharge planning, medication reconciliation, and communication with other providers. Discharge Instructions Please refer to the electronic Patient Visit Report (Discharge Instructions) for additional information. Follow-Up PCP within 1 week Oncology in 2 days GI in 2 weeks Additional Copies To Agueda De M.D.; Manny Vergara D.O.; Shira Yarbrough MD
[2016-12-03 20:40] LABS: ALBUMIN 3.4 G/DL (3.8-4.8); FREE KAPPA 21.5 MG/L (3.3-19.4); FREE KAPPA/LAMBDA RATIO 1.41 (0.26-1.65); FREE LAMBDA 15.2 MG/L (5.7-26.3); GAMMA GLOBULIN 0.7 G/DL (0.8-1.7); TOTAL PROTEIN 5.8 G/DL (6.2-8.3)
[2016-12-11] MEDS ORDERED: ENOX60IN SQ (08:41)
[2016-12-11] MEDS ORDERED: CITA20TA4 PO (08:41)
[2016-12-11] MEDS ORDERED: PROP10TA7 PO (08:41)
[2016-12-11] MEDS ORDERED: PANT40TA PO (08:41)
[2016-12-11] MEDS ORDERED: [UNRECOGNIZED DRUG - CODE] PO (08:41)
[2017-02-09] MEDS ORDERED: [UNRECOGNIZED DRUG - CODE] PO (08:56)
[2017-02-09] MEDS ORDERED: WARF7.5T PO (08:56)
[2017-02-09] MEDS ORDERED: WARF6TAB PO (08:56)
[2017-02-20] MEDS ORDERED: LVNIS80 SC ×2 (07:43→11:24)
[2017-03-19] MEDS ORDERED: WARF5TAB90 PO (10:11)
[2017-03-27] MEDS ORDERED: PANT40TA PO (12:57)
[2017-03-27] MEDS ORDERED: [UNRECOGNIZED DRUG - CODE] PO (12:59)
== END 2016-12-03 15:41 | disposition home or self-care (01) | DRG 840 ==
LOC: ENRESERVDT → ENRESERVTM → C.EDB 16:13 → C.2E 20:20 → EEVIPCON 20:20 → C.4E 11-30 11:06
PROVIDERS: ADMIT Hospitalist; ATTEND Family Medicine
PROC: 0DJ08ZZ Inspection of Upper Intestinal Tract, Via Natural or Artificial Opening Endoscopic (ICD-10-PCS; principal; 2016-12-01 09:07)
DX: D75.81 Myelofibrosis (principal); I85.11 Secondary esophageal varices with bleeding; J18.9 Pneumonia, unspecified organism; K76.6 Portal hypertension; K22.10 Ulcer of esophagus without bleeding; D62 Acute posthemorrhagic anemia; D69.6 Thrombocytopenia, unspecified; D73.1 Hypersplenism; F32.9 Major depressive disorder, single episode, unspecified; M89.9 Disorder of bone, unspecified; Z86.711 Personal history of pulmonary embolism; Z86.718 Personal history of other venous thrombosis and embolism; I27.2 Other secondary pulmonary hypertension; Z79.01 Long term (current) use of anticoagulants

== ENCOUNTER → 2016-12-17 | Day surgery (SDC) | payer OTHER ==
[2016-12-11 08:42] VITALS: BMI 24.0
[~2016-12-17] VITALS: Ht 162.6 cm; Wt 65.5 kg
[~2016-12-17] MED LIST changes: -CITA10TA8 PO; +CITA20TA4 PO; +CMD5 PO; +ENOX60IN SQ; -LANS15CA27 PO; +LIDOCAINE HCL 2% 2 ML VIAL (20MG/ML) ONE; +LVNIS80 SC; +MIDAZOLAM HCL 1 MG/ML 2ML VIAL ONE; +PANT40TA PO; +PROP10TA7 PO; +PROPOFOL IV EMULSION 10 MG/ML 20 ML VIAL IV ONE; +SODIUM CHLORIDE 0.9% 500ML 500 ML IV ONE; +WARF7.5T PO; +[UNRECOGNIZED DRUG - CODE] PO; +[UNRECOGNIZED DRUG - CODE] PO; -[UNRECOGNIZED DRUG - CODE] PO
[2016-12-17 07:55] VITALS: Ht 162.6 cm; Wt 65.5 kg
--- NOTE | 2016-12-17 08:48 | Endo History and Physical ---
History & Physical Date of Service: Dec 17, 2016. Chief Complaint: FOOLOW UP FOR VARICIES Referring Physician: DR BAUM History of Present Illness varices banding today Past Medical History Anxiety, High Cholesterol Past Surgical History Hx Cardiac Surgery: No Hx Internal Defibrillator: No Hx Pacemaker: No Hx Abdominal Surgery: Yes (TUBAL LIGATION) Hx of Implantable Prosthesis: No Hx Post-Op Nausea and Vomiting: No Hx Cancer Surgery: No Hx Thoracic Surgery: No Hx Orthopedic: No Hx Urinary Tract Surgery: No Family History None Social History Smoking Status: Never Smoker Hx Substance Use: No Hx Alcohol Use: No Allergies Coded Allergies: No Known Allergies (Verified , 12/17/16) Current Medications Reported Home Medications Medications Dose Route/Sig Max Daily Dose Days Date Category Jakafi (Ruxolitinib Phosphate) 10 Mg Tab 1 Tab PO BID 12/11/16 Reported Lovenox (Enoxaparin Sodium) 60 Mg/0.6 Ml Inj 60 Mg SQ Q12H 12/11/16 Reported Citalopram Hydrobromide 20 Mg Tab 1.5 Tabs PO QPM 12/11/16 Reported Protonix (Pantoprazole Sodium) 40 Mg Tab 40 Mg PO BID 12/11/16 Reported Inderal (Propranolol HCl) 10 Mg Tab 10 Mg PO TID 12/11/16 Reported Vitamin D (Cholecalciferol) 2,000 Unit Cap 2,000 Unit PO QPM 06/12/14 Reported Vital Signs Weight (Kilograms): 65.45 Height (Feet): 5 Height (Inches): 4 Date Time Temp Pulse Resp B/P Pulse Ox O2 Delivery O2 Flow Rate FiO2 12/17/16 08:00 36.7 73 16 126/73 95 Room Air Physical Exam General Appearance: WD/WN, no apparent distress Assessment and Plan EGD today with varices banding
--- NOTE | 2016-12-17 09:01 | Discharge Instructions ---
Endoscopy Patient Instructions Date / Procedure(s) Performed Dec 17, 2016. EGD Allergy Information Coded Allergies: No Known Allergies (Verified , 12/17/16) Discharge Date / Findings Dec 17, 2016. ulcers at prior banding sites; grade1-2 varices; no bands placed today Medication Instructions Stopped Medication(s): LOVENOX Restart Stopped Medication(s): OK to resume blood thinners today as noted above. Resume all home medications Provider Instructions Activity Restrictions - No exercising or heavy lifting for 24 hours. - Do not drink alcohol the day of the procedure. - Do not drive a car or operate machinery until the day after the procedure. - Do not make any important decisions or sign important papers in 24 hours after the procedure. Following Day: - Return to full activity which may include returning to work/school. Diet Start your diet with liquids and light foods (jello, soup, juice, toast). Then eat your usual diet if not nauseated. Treatment For Common After Affects For mild abdominal pain, bloating, or excessive gas: - Rest - Eat lightly - Lie on right side Repeat upper endoscopy in 6-8 weeks Follow-Up Information Follow-up with DR BAUM as scheduled Anesthesia Information What You Should Know You have had a procedure that required some medicine to reduce anxiety and discomfort. This treatment is called moderate sedation. After receiving the treatment, you may be sleepy, but you will be able to breathe on your own. The effects of the treatment may last for several hours. Follow these instructions along with Activity/Diet recommendations noted above: * Do NOT do anything where dizziness or clumsiness would be dangerous. * Rest quietly at home today, then you can be up and about tomorrow. * Have a responsible person stay with you the rest of today. * You may have had an I.V. today. If so, you may take the dressing off later today. Recommendations Call your doctor if: * Trouble breathing * Continuous vomiting for more than 24 hours * Temperature above 101 degrees * Severe abdominal pain or bloating * Pain not relieved by pain medicine ordered * There is increased drainage or redness from any incision * A large amount of rectal bleeding greater than 2-3 tablespoons. (If you had a polyp/s removed or have hemorrhoids, a small amount of blood - from the rectum is to be expected.) * You have any unanswered questions or concerns. IN THE EVENT OF A SERIOUS EMERGENCY, GO TO THE NEAREST EMERGENCY ROOM Your discharge instructions were prepared by provider Clarissa Rodríguez. Patient Instructions Signature Page [facility] Roy Patient (or Guardian) Signature/Date: I have read and understand the instructions given to me by my caregivers. Caregiver/RN/Doctor Signature/Date: The above-named patient and/or guardian has received patient instructions on this date. + Original Patient Signature Page (only) stays with chart. Please make copy for patient.
--- NOTE | 2016-12-17 09:08 | GI REPORT ---
Procedure Date: 12/17/2016 8:45 AM Procedure: Upper GI endoscopy Indications: Follow-up of esophageal varices, For therapy of esophageal varices Medicines: Propofol per Anesthesia Complications: No immediate complications. Estimated blood loss: None. Estimated Blood Loss: Estimated blood loss: none. Procedure: Pre-Anesthesia Assessment: - Prior to the procedure, a History and Physical was performed, and patient medications, allergies and sensitivities were reviewed. The patient's tolerance of previous anesthesia was reviewed. - The risks and benefits of the procedure and the sedation options and risks were discussed with the patient. All questions were answered and informed consent was obtained. - Patient identification and proposed procedure were verified prior to the procedure by the physician and the nurse. The procedure was verified in the pre-procedure area in the procedure room. - Mental Status Examination: alert and oriented. Airway Examination: normal oropharyngeal airway and neck mobility. Respiratory Examination: clear to auscultation. CV Examination: normal. Abdominal Examination: bowel sounds present, abdomen soft and non-tender, no masses or organomegaly noted. - ASA Grade Assessment: III - A patient with severe systemic disease. After obtaining informed consent, the endoscope was passed under direct vision. Throughout the procedure, the patient's blood pressure, pulse, and oxygen saturations were monitored continuously. The scope was introduced through the mouth, and advanced to the second part of duodenum. The upper GI endoscopy was accomplished without difficulty. The patient tolerated the procedure well. Findings: Few superficial esophageal ulcers at sites of prior variceal banding with no bleeding and no stigmata of recent bleeding were found. One non-bleeding superficial gastric ulcer with no stigmata of bleeding was found in the gastric antrum. The examined duodenum was normal. Impression: - Non-bleeding esophageal ulcers at sites of prior variceal banding. - Grade I varices. - Non-bleeding gastric ulcer with no stigmata of bleeding. - Normal examined duodenum. - No specimens collected. Recommendation: - Repeat the upper endoscopy in 8 weeks to check healing and for retreatment. - Continue present medications. On propranolol. - Return to primary care physician as previously scheduled. - Discharge patient to home. Clarissa Rodríguez D.O. Clarissa Rodríguez DO 12/17/2016 9:07:43 AM This report has been signed electronically. Note Initiated On: 12/17/2016 8:45 AM I attest to the content of the Intraoperative Record and orders documented therein, exceptions below
--- NOTE | 2016-12-17 09:12 | Anesthesiology Progress Note ---
Anesthesia Post Op Note Date & Time Dec 17, 2016 at 09:12 Vital Signs Pain Intensity: 0 Vital Signs Past 12 Hours Date Time Temp Pulse Resp B/P Pulse Ox O2 Delivery O2 Flow Rate FiO2 12/17/16 09:04 71 16 103/58 97 Room Air 12/17/16 08:00 36.7 73 16 126/73 95 Room Air Notes Mental Status: alert / awake / arousable, participated in evaluation Pt Amnestic to Procedure: Yes Nausea / Vomiting: adequately controlled Pain: adequately controlled Airway Patency, RR, SpO2: stable & adequate BP & HR: stable & adequate Hydration State: stable & adequate Anesthetic Complications: no major complications apparent
[2016-12-17 09:34] VITALS: BP 114/65; PULSE 70; O2SAT 98
== END | disposition home or self-care (01) ==
LOC: C.GI 07:42
PROVIDERS: ATTEND Internal Medicine
DX: I85.00 Esophageal varices without bleeding (principal); K25.9 Gastric ulcer, unspecified as acute or chronic, without hemorrhage or perforation

== ENCOUNTER → 2016-12-29 | Outpatient (CLI) | payer OTHER ==
[~2016-12-29] MED LIST changes: -LIDOCAINE HCL 2% 2 ML VIAL (20MG/ML) ONE; -MIDAZOLAM HCL 1 MG/ML 2ML VIAL ONE; -PROPOFOL IV EMULSION 10 MG/ML 20 ML VIAL IV ONE; -SODIUM CHLORIDE 0.9% 500ML 500 ML IV ONE
[2016-12-29 12:43] LABS: INR 3.1 (0.9-1.1); PROTHROMBIN TIME (PATIENT) 34.5 SECONDS (9.0-12.0)
== END | disposition home or self-care (01) ==
LOC: C.LAB 10:26
PROVIDERS: ATTEND Family Medicine
DX: I82.409 Acute embolism and thrombosis of unspecified deep veins of unspecified lower extremity (principal)

== ENCOUNTER → 2017-02-02 | Outpatient (CLI) | payer OTHER ==
--- NOTE | 2017-02-02 12:01 | DIAGNOSTIC IMAGING REPORT ---
CT OF THE CHEST WITHOUT IV CONTRAST CLINICAL HISTORY: Pulmonary nodule. ABNORMAL CT SCAN. COMPARISON STUDY: 11/28/2016 CT DOSE: 182.20 mGy.cm TECHNIQUE: CT of the thorax was performed from the thoracic inlet to the lung bases. Images are reviewed in the axial, sagittal, and coronal planes. IV contrast was not administered for this examination. FINDINGS: Thyroid: Imaged portions of the thyroid gland are normal in appearance. Thoracic aorta: The thoracic aorta is normal in course and caliber, noting standard 3 vessel arch anatomy. Heart: The heart is mildly enlarged. There is a small pericardial effusion. Lungs and pleural spaces: No pleural effusions are visualized. There are multiple bilateral nodular opacities. The dominant right lower lobe 17 mm opacity remains unchanged in size. Within the upper lobes there are multiple confluent nodular opacities which measure 5 cm in aggregate. These also remain essentially unchanged. There is slight enlargement in a 6 mm left upper lobe nodule. There is slight enlargement in a 5 mm lingular nodule. Pulmonary consultation for consideration of bronchoscopic evaluation is recommended. Mediastinum: There is no mediastinal lymphadenopathy. Elli: There is no pathologic hilar adenopathy given the limitations of a noncontrast study Axilla: Clear. Upper abdomen: The spleen is enlarged. There is a stable 12 mm circumscribed left breast nodule. Skeletal structures: There is diffuse bony sclerosis of the skeleton with scattered lytic lesions. Some of these represent hemangiomas, others are indeterminate. The sclerotic skeleton is consistent with the patient's known myelofibrosis. Etiology of the lytic lesions is not known. IMPRESSION: 1. Multiple bilateral nodular pulmonary opacities. The relative stability mitigates against an acute infectious etiology. Pulmonary consultation for bronchoscopic consideration is recommended in follow-up 2. Splenomegaly 3. Diffuse bony sclerosis, consistent with the patient's known myelofibrosis. Additional small lytic lesions are of uncertain etiology Electronically signed by: Kehinde Collins M.D. 02/02/2017 12:00 PM Dictated Date/Time: 02/02/2017 11:49 AM
== END | disposition home or self-care (01) ==
LOC: C.CTS 11:22
PROVIDERS: ATTEND Family Medicine
DX: J18.9 Pneumonia, unspecified organism (principal); R91.1 Solitary pulmonary nodule

== ENCOUNTER → 2017-02-05 | Outpatient (CLI) | payer OTHER ==
[2017-02-05 12:51] LABS: BASO ABS # 0.13 K/uL (0-0.2); BASOPHIL % 1.8 %; COMPLETE YES; EOSINOPHIL % 2.7 %; LYMPH ABS # 3.17 K/uL (1.2-3.4); LYMPHOCYTE % 42.5 %; MEAN CELL VOLUME 82.3 fL (80-100); MEAN CORPUSCULAR HEMOGLOBIN 26.2 pg (25-34); MEAN CORPUSCULAR HGB CONC 31.8 g/dl (32-36); META ABS # 0.13 K/uL (0-0); METAMYELOCYTE % 1.8 %; MYELOCYTE % 3.5 %; NEUTROPHILS % 47.7 %; PLATELET COUNT 23 K/uL (130-400); PLT ESTIMATE SIGNIFIC DECREASED; RED BLOOD COUNT 4.13 M/uL (4.2-5.4); TEAR DROP CELLS 1+; WHITE BLOOD COUNT 7.47 K/uL (4.8-10.8)
[2017-02-05 12:59] LABS: ALB/GLOB RATIO 1.4 (0.9-2); ALKALINE PHOSPHATASE 126 U/L (45-117); ALT/SGPT 91 U/L (12-78); AST/SGOT 56 U/L (15-37); BLOOD UREA NITROGEN 20 mg/dl (7-18); BUN/CREATININE RATIO 22.9 (10-20); CALCIUM 8.4 mg/dl (8.5-10.1); CARBON DIOXIDE 26 mmol/L (21-32); CHLORIDE 114 mmol/L (98-107); CREATININE 0.89 mg/dl (0.60-1.20); GLUCOSE 81 mg/dl (70-99); POTASSIUM 3.9 mmol/L (3.5-5.1); SODIUM 146 mmol/L (136-145)
== END | disposition home or self-care (01) ==
LOC: C.LABPBG 08:15
PROVIDERS: ATTEND Family Medicine
DX: D47.1 Chronic myeloproliferative disease (principal)

== ENCOUNTER → 2017-02-11 | Outpatient (CLI) | payer OTHER ==
[~2017-02-11] MED LIST changes: -ENOX60IN SQ; -[UNRECOGNIZED DRUG - CODE] PO
[2017-02-11 17:43] LABS: MEAN CORPUSCULAR HGB CONC 32.6 g/dl (32-36)
[2017-02-11 20:36] LABS: PLATELET COUNT 35 K/uL (130-400)
[2017-02-11 20:39] LABS: ANISOCYTOSIS PRESENT; BASO ABS # 0.11 K/uL (0-0.2); BASOPHIL % 2.7 %; COMPLETE YES; EOSINOPHIL % 0.9 %; HEMATOCRIT 27.1 % (37-47); LYMPH ABS # 1.45 K/uL (1.2-3.4); LYMPHOCYTE % 34.5 %; MEAN CELL VOLUME 81.9 fL (80-100); MEAN CORPUSCULAR HEMOGLOBIN 27.2 pg (25-34); META ABS # 0.23 K/uL (0-0); METAMYELOCYTE % 5.5 %; MYELOCYTE % 5.5 %; NEUTROPHILS % 45.5 %; OVALOCYTES 1+; PLT ESTIMATE DECREASED; POLYCHROMASIA 1+; RED BLOOD COUNT 3.31 M/uL (4.2-5.4); TEAR DROP CELLS 3+; WHITE BLOOD COUNT 4.21 K/uL (4.8-10.8)
== END | disposition home or self-care (01) ==
LOC: C.LABPBG 14:58
PROVIDERS: ATTEND Internal Medicine Hematology & Oncology
DX: D47.1 Chronic myeloproliferative disease (principal)

== ENCOUNTER 2017-02-17 10:30 | Inpatient (IN) | payer OTHER ==
[~2017-02-17] VITALS: Ht 162.6 cm; Wt 65.7 kg
[~2017-02-17 10:30] MED LIST changes: -CMD5 PO; -LVNIS80 SC; -PANT40TA PO; -WARF5TAB90 PO
[2017-02-17 11:14] LABS: MEAN CORPUSCULAR HGB CONC 31.9 g/dl (32-36)
[2017-02-17 11:18] LABS: HEMATOCRIT 25.7 % (37-47); INR 2.5 (0.9-1.1); MEAN CELL VOLUME 85.1 fL (80-100); MEAN CORPUSCULAR HEMOGLOBIN 27.2 pg (25-34); PROTHROMBIN TIME (PATIENT) 28.3 SECONDS (9.0-12.0); RED BLOOD COUNT 3.02 M/uL (4.2-5.4); WHITE BLOOD COUNT 4.71 K/uL (4.8-10.8)
[2017-02-17 11:21] LABS: BLOOD UREA NITROGEN 17 mg/dl (7-18); BUN/CREATININE RATIO 17.4 (10-20); CALCIUM 8.3 mg/dl (8.5-10.1); CARBON DIOXIDE 26 mmol/L (21-32); CHLORIDE 110 mmol/L (98-107); CREATININE 0.97 mg/dl (0.60-1.20); GLUCOSE 79 mg/dl (70-99); SODIUM 143 mmol/L (136-145)
[2017-02-17] MEDS ORDERED: CMD5 PO (11:29)
[2017-02-17 11:48] LABS: ANISOCYTOSIS PRESENT; BASO ABS # 0.04 K/uL (0-0.2); BASOPHIL % 0.9 %; COMPLETE YES; EOSINOPHIL % 1.9 %; LYMPH ABS # 0.89 K/uL (1.2-3.4); LYMPHOCYTE % 18.9 %; META ABS # 0.13 K/uL (0-0); METAMYELOCYTE % 2.8 %; MYELOCYTE % 1.9 %; PLATELET COUNT 45 K/uL (130-400); PLT ESTIMATE DECREASED; POLYCHROMASIA 1+; TEAR DROP CELLS 3+
[2017-02-17] MEDS ORDERED: OPTIRAY 320 IV PRN (12:15)
--- NOTE | 2017-02-17 12:49 | DIAGNOSTIC IMAGING REPORT ---
CT ANGIOGRAM OF THE CHEST CLINICAL HISTORY: Chest pain and difficulty breathing. History of prior pulmonary embolism. COMPARISON STUDY: CT angiography the chest dated 11/28/2016, CT scan of chest dated 02/02/2017 TECHNIQUE: Following the IV administration of 92 mL of [id number]-[id number], CT angiogram of the thorax was performed from the thoracic inlet to the lung bases utilizing the pulmonary embolus protocol. Images are reviewed in the axial, sagittal, and coronal planes. IV contrast was administered without complication. MIP imaging was performed. CT DOSE: 204.36 mGy.cm FINDINGS: No pathologically enlarged axillary mediastinal or hilar lymph nodes were visualized. There was no evidence of thoracic aortic dilatation. There were no pulmonary artery filling defects to indicate acute pulmonary embolism. 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 No pleural effusions are visualized. There are multifocal nodular airspace opacities, similar to the preceding study. There is pronounced splenomegaly. There is diffuse skeletal sclerosis with scattered small lytic lesions. IMPRESSION: 1. 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 No evidence of acute pulmonary embolism 3. Multiple bilateral nodular pulmonary opacities, similar to the preceding study. Again the stability mitigates against an acute infectious process. If not previously performed, bronchoscopic biopsy evaluation might be considered in follow-up 4. Pronounced splenomegaly 5. Diffuse bony sclerosis with additional small lytic lesions similar to the prior study Electronically signed by: Kehinde Collins M.D. 02/17/2017 12:48 PM Dictated Date/Time: 02/17/2017 12:41 PM
--- NOTE | 2017-02-17 13:38 | EMERGENCY ROOM VISIT NOTE ---
History First contact with patient: 10:36 Chief Complaint: CHEST PAIN Stated Complaint: CHEST PAIN, DIFF. BREATHING, ACHING LEGS Nursing Triage Summary: Triage note: pt reports mid chest pain since yesterday and shortness of breath x 2 weeks. pt reports she last had a chemo tx 3 weeks ago "they had to stop them because my counts were low, i don't know what kind of cancer it is he won't tell me." pt reports hx of pe's. History of Present Illness The patient is a 61 year old female who presents to the Emergency Room with complaints of chest pain. The patient began to have a headache a mild chest pain last night, took a tylenol and was able to sleep shortly afterwards. This morning she awoke with constant, achy, 8/10 right sided chest pain. She states that that pain is worse with deep breaths but does not change with position or palpation. For the last 2 weeks she has been also complaining of bilateral thigh pain. The patient has a history of multiple PEs and is currently on 6mg of Coumadin. She was underwent banding for esophageal varices in November and was due to follow up for additional banding in mid February. She denies any left sided chest pain, abdominal pain, diarrhea, headache, fever, nausea, vomiting. Review of Systems See HPI for pertinent positives and negatives. A total of ten systems were reviewed and were otherwise negative. Past Medical/Surgical History Medical Problems: (1) Pneumonia (2) Upper GI bleed Social History Smoking Status: Never Smoker Alcohol Use: none Drug Use: none Marital Status: Housing Status: lives with family Occupation Status: employed Current/Historical Medications Scheduled Cholecalciferol (Vitamin D), 2,000 UNIT PO QPM Citalopram Hydrobromide (Citalopram Hydrobromide), 1.5 TABS PO QPM Propranolol (Inderal), 10 MG PO TID Ruxolitinib Phosphate (Jakafi), 1 TAB PO BID Warfarin Sod (Coumadin), 7 MG PO WK Warfarin Sodium (Coumadin), 6 MG PO [id number] Allergies Coded Allergies: No Known Allergies (Verified , 02/09/17) Physical Exam Vital Signs Date Time Temp Pulse Resp B/P Pulse Ox O2 Delivery O2 Flow Rate FiO2 02/17/17 13:42 77 02/17/17 12:30 76 28 121/52 96 Room Air 02/17/17 10:57 74 02/17/17 10:33 36.7 75 18 111/60 97 Room Air Physical Exam GENERAL: Awake, alert, well-appearing, in no distress HENT: Normocephalic, atraumatic. Oropharynx unremarkable. EYES: Normal conjunctiva. Sclera non-icteric. NECK: Supple. No nuchal rigidity. RESPIRATORY: Clear to auscultation. CARDIAC: Regular rate, normal rhythm. Extremities warm and well perfused. Pulses equal. ABDOMEN: Soft, non-distended. No tenderness to palpation. No rebound or guarding. No masses. RECTAL: No gross blood, hemorrhoids, or anal fissures MUSCULOSKELETAL: Chest examination reveals no tenderness. The back is symmetrical on inspection without obvious abnormality. There is no CVA tenderness to palpation. No joint edema. LOWER EXTREMITIES: Calves are equal size bilaterally and non-tender. No edema. No discoloration. NEURO: Normal sensorium. No sensory or motor deficits noted. SKIN: No rash or jaundice noted. Medical Decision & Procedures Laboratory Results 02/17/17 10:55 Red Blood Count 3.02, Mean Corpuscular Volume 85.1, Mean Corpuscular Hemoglobin 27.2, Mean Corpuscular Hemoglobin Concent 31.9 02/17/17 10:55 Test 02/17/17 10:55 White Blood Count 4.71 K/uL (4.8-10.8) Red Blood Count 3.02 M/uL (4.2-5.4) Hemoglobin 8.2 g/dL (12.0-16.0) Hematocrit 25.7 % (37-47) Mean Corpuscular Volume 85.1 fL (80-100) Mean Corpuscular Hemoglobin 27.2 pg (25-34) Mean Corpuscular Hemoglobin Concent 31.9 g/dl (32-36) Platelet Count 45 K/uL (130-400) RDW Standard Deviation 62.2 fL (36.4-46.3) RDW Coefficient of Variation 20.5 % (11.5-14.5) Nucleated RBC Absolute Count (auto) 0.71 K/uL (0-0) Neutrophils % (Manual) 67.0 % Lymphocytes % (Manual) 18.9 % Monocytes % (Manual) 6.6 % Eosinophils % (Manual) 1.9 % Basophils % (Manual) 0.9 % Metamyelocytes % 2.8 % Myelocytes % 1.9 % Nucleated Red Blood Cells % 15.1 % Neutrophils # (Manual) 3.16 K/uL (1.4-6.5) Total Absolute Neutrophils 3.16 K/uL (1.4-6.5) Lymphocytes # (Manual) 0.89 K/uL (1.2-3.4) Total Absolute Lymphocytes 0.89 K/uL (1.2-3.4) Monocytes # (Manual) 0.31 K/uL (0.11-0.59) Eosinophils # (Manual) 0.09 K/uL (0-0.5) Basophils # (Manual) 0.04 K/uL (0-0.2) Metamyelocytes # 0.13 K/uL (0-0) Myelocytes # 0.09 K/uL (0-0) Platelet Estimate DECREASED Polychromasia 1+ Anisocytosis PRESENT Tear Drop Cells 3+ Prothrombin Time 28.3 SECONDS (9.0-12.0) Prothromb Time International Ratio 2.5 (0.9-1.1) Anion Gap 7.0 mmol/L (3-11) Est Creatinine Clear Calc Drug Dose 58.8 ml/min Estimated GFR () 74.1 Estimated GFR (Non- 63.9 BUN/Creatinine Ratio 17.4 (10-20) Calcium Level 8.3 mg/dl (8.5-10.1) Total Creatine Kinase 25 U/L (26-192) Creatine Kinase MB < 0.5 ng/ml (0.5-3.6) Creatine Kinase MB Ratio (0-3.0) Troponin I < 0.015 ng/ml (0-0.045) Medical Decision Patient is a 61 year old male that presents with a 1 day history of chest pain Etiologies such as cardiac ischemia, aortic dissection, pulmonary embolism, pneumonia, pneumothorax, musculoskeletal, infections, esophageal varices, gastrointestinal, as well as others were entertained. Initial orders: Labs: CBC, BMP, Troponin, PT/INR, CK, CKMB Imaging: CTA, PT/INR, EKG - CTA revealed chronic pulmonary opacities but no acute findings - Hgb 8.2, on 01/26 was 12.0 - Performed stool guaiac test that was positive - Consulted [facility] and spoke with Dr. Campuzano who agreed to admit the patient for suspected GI bleed Impression Primary Impression: GI bleed Additional Impression: Chest pain Departure Information Dispostion Admitted as an inpatient Condition FAIR Referrals Shira Yarbrough MD (PCP) Patient Instructions [facility] Problem Qualifiers Primary Impression: GI bleed GI bleed type/associated pathology: unspecified gastrointestinal hemorrhage type Qualified Codes: K92.2 - Gastrointestinal hemorrhage, unspecified Additional Impression: Chest pain Chest pain type: unspecified Qualified Codes: R07.9 - Chest pain, unspecified
--- NOTE | 2017-02-17 14:30 | EMERGENCY ROOM VISIT NOTE ---
History Report prepared by Coretta: Babs Gipson Under the Supervision of: Dr. Sandrine Powers M.D. First contact with patient: 10:36 Chief Complaint: CHEST PAIN Stated Complaint: CHEST PAIN, DIFF. BREATHING, ACHING LEGS Nursing Triage Summary: Triage note: pt reports mid chest pain since yesterday and shortness of breath x 2 weeks. pt reports she last had a chemo tx 3 weeks ago "they had to stop them because my counts were low, i don't know what kind of cancer it is he won't tell me." pt reports hx of pe's. History of Present Illness The patient is a 61 year old female who presents to the Emergency Room with complaints of constant chest pain beginning last night. The patient states that she began to have a headache and mild chest pain last night but after taking a Tylenol she was able to sleep. This morning she notes that she awoke with constant, achy, 8/10 right sided chest pain. She states that that pain is worse with deep breaths but does not change with position or palpation. For the last 2 weeks she has been also complaining of bilateral thigh pain. The patient has a history of multiple PEs and is currently on 6mg of Coumadin/day. She was underwent banding for esophageal varices in November and was due to follow up for additional banding in mid February. She denies any abdominal pain, diarrhea, headache, fever, nausea, vomiting. Source of History: patient Onset: last night Position: chest Timing: constant Modifying Factors (Worsening): breathing Associated Symptoms: + headache, No abdominal pain, No diarrhea, No fevers, No nausea, No vomiting Note: Pt complains of achiness. Review of Systems See HPI for pertinent positives & negatives. A total of 10 systems reviewed and were otherwise negative. Past Medical & Surgical Medical Problems: (1) GI bleed (2) Pneumonia (3) Upper GI bleed Family History No pertinent family history stated. Social History Smoking Status: Never Smoker Alcohol Use: none Drug Use: none Marital Status: Housing Status: lives with family Occupation Status: employed Current/Historical Medications Scheduled Cholecalciferol (Vitamin D), 2,000 UNIT PO QPM Citalopram Hydrobromide (Citalopram Hydrobromide), 1.5 TABS PO QPM Propranolol (Inderal), 10 MG PO TID Ruxolitinib Phosphate (Jakafi), 1 TAB PO BID Warfarin Sod (Coumadin), 7 MG PO WK Warfarin Sodium (Coumadin), 6 MG PO 6XWK Allergies Coded Allergies: No Known Allergies (Verified , 02/09/17) Physical Exam Vital Signs Date Time Temp Pulse Resp B/P Pulse Ox O2 Delivery O2 Flow Rate FiO2 02/17/17 14:30 82 19 137/78 97 Room Air 02/17/17 13:42 77 02/17/17 12:30 76 28 121/52 96 Room Air 02/17/17 10:57 74 02/17/17 10:33 36.7 75 18 111/60 97 Room Air Physical Exam Vital signs reviewed. General: Chronically-ill appearing, in no significant distress. HEENT: No scleral icterus, PERRLA, neck supple. Atraumatic. Cardiovascular: Regular rate and rhythm, no extra sounds. Pulmonary: Clear to auscultation bilaterally, normal work of breathing. Abdomen: Soft, nontender, nondistended, positive bowel sounds. Musculoskeletal: Atraumatic, no peripheral edema. Neurologic: Patient awake alert and oriented x 3, full strength in all 4 extremities. Cranial nerves 2 through 12 grossly intact. Skin: Warm, dry, no rash Medical Decision & Procedures ER Provider Diagnostic Interpretation: CT results as stated below per my review and radiologist interpretation: CT ANGIOGRAM OF THE CHEST FINDINGS: No pathologically enlarged axillary mediastinal or hilar lymph nodes were visualized. There was no evidence of thoracic aortic dilatation. There were no pulmonary artery filling defects to indicate acute pulmonary embolism. 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 No pleural effusions are visualized. There are multifocal nodular airspace opacities, similar to the preceding study. There is pronounced splenomegaly. There is diffuse skeletal sclerosis with scattered small lytic lesions. IMPRESSION: 1. 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 No evidence of acute pulmonary embolism 3. Multiple bilateral nodular pulmonary opacities, similar to the preceding study. Again the stability mitigates against an acute infectious process. If not previously performed, bronchoscopic biopsy evaluation might be considered in follow-up 4. Pronounced splenomegaly 5. Diffuse bony sclerosis with additional small lytic lesions similar to the prior study Electronically signed by: Kehinde Collins M.D. 02/17/2017 12:48 PM Dictated Date/Time: 02/17/2017 12:41 PM Laboratory Results 02/17/17 10:55 Red Blood Count 3.02, Mean Corpuscular Volume 85.1, Mean Corpuscular Hemoglobin 27.2, Mean Corpuscular Hemoglobin Concent 31.9 Test 02/17/17 10:55 White Blood Count 4.71 K/uL (4.8-10.8) Red Blood Count 3.02 M/uL (4.2-5.4) Hemoglobin 8.2 g/dL (12.0-16.0) Hematocrit 25.7 % (37-47) Mean Corpuscular Volume 85.1 fL (80-100) Mean Corpuscular Hemoglobin 27.2 pg (25-34) Mean Corpuscular Hemoglobin Concent 31.9 g/dl (32-36) Platelet Count 45 K/uL (130-400) RDW Standard Deviation 62.2 fL (36.4-46.3) RDW Coefficient of Variation 20.5 % (11.5-14.5) Nucleated RBC Absolute Count (auto) 0.71 K/uL (0-0) Neutrophils % (Manual) 67.0 % Lymphocytes % (Manual) 18.9 % Monocytes % (Manual) 6.6 % Eosinophils % (Manual) 1.9 % Basophils % (Manual) 0.9 % Metamyelocytes % 2.8 % Myelocytes % 1.9 % Nucleated Red Blood Cells % 15.1 % Neutrophils # (Manual) 3.16 K/uL (1.4-6.5) Total Absolute Neutrophils 3.16 K/uL (1.4-6.5) Lymphocytes # (Manual) 0.89 K/uL (1.2-3.4) Total Absolute Lymphocytes 0.89 K/uL (1.2-3.4) Monocytes # (Manual) 0.31 K/uL (0.11-0.59) Eosinophils # (Manual) 0.09 K/uL (0-0.5) Basophils # (Manual) 0.04 K/uL (0-0.2) Metamyelocytes # 0.13 K/uL (0-0) Myelocytes # 0.09 K/uL (0-0) Platelet Estimate DECREASED Polychromasia 1+ Anisocytosis PRESENT Tear Drop Cells 3+ Laboratory results per my review. ECG Indication: chest pain Rate (beats per minute): 69 Rhythm: normal sinus Findings: T-wave inversion (Inferior and anterolateral) Comparison ECG Date: 30-NOV-2016 Change: no significant change ED Course 1036: Past medical records reviewed. The patient was evaluated in room C6. A complete history and physical examination was performed. 1326: I reevaluated and updated the patient. 1401: I reviewed the patient's case with Dr. Campuzano. She will evaluate the patient for further management. 1418: Upon reevaluation, the patient is resting comfortably. I discussed laboratory and radiographic results with the patient. She verbalized agreement of the treatment plan. I spoke with Dr. Campuzano of the [facility] [facility]. The patient will be evaluated for further management and care. Medical Decision DDx: Acute coronary syndrome, pulmonary embolus, aortic dissection, musculoskeletal pain, pneumonia, pleural effusion, pneumothorax Medication Reconciliation: I attest that I have personally reviewed the patient' s current medication list. This patient was evaluated and appeared to be in no significant distress. IV access was obtained and laboratory work was drawn. Patient was placed on the monitoring manager and found to be in a normal sinus rhythm. She does have T-wave inversions in the inferior and anterior lateral leads. CT scan of the chest was performed and reveals no acute pulmonary embolus, there is chronic occlusion of the left lower pulmonary artery. There is no evidence of pulmonary infiltrate. The patient is noted to have a depleted H&H. Rectal exam was performed and reveals guaiac positive stool. A type and cross for 2 units to hold was ordered although the patient states her oncologist held a previous transfusion due to her chemotherapeutic agent. Patient was given IV Protonix. Case was discussed with the hospitalist service who has agreed to evaluate the patient for admission and further management. He is aware of the plan and agrees. Consults Time Called: [id number] Consulting Physician: Dr. Campuzano - [facility] Returned Call: 1401 I reviewed the patient's case with Dr. Campuzano. She will evaluate the patient for further management. Impression Primary Impression: GI bleed Additional Impression: Chest pain Scribe Attestation The scribe's documentation has been prepared under my direction and personally reviewed by me in its entirety. I confirm that the note above accurately reflects all work, treatment, procedures, and medical decision making performed by me. Departure Information Dispostion Being Evaluated By Hospitalist Referrals Shira Yarbrough MD (PCP) Patient Instructions My [facility] Problem Qualifiers Primary Impression: GI bleed GI bleed type/associated pathology: unspecified gastrointestinal hemorrhage type Qualified Codes: K92.2 - Gastrointestinal hemorrhage, unspecified Additional Impression: Chest pain Chest pain type: unspecified Qualified Codes: R07.9 - Chest pain, unspecified
[2017-02-17] MEDS: PANTOprazole INJ 40 MG in SYRINGE 0 ML IV SCH ×2 (15:00→17:30)
[2017-02-17] MEDS ORDERED: MAGNESIUM HYDROXIDE SUSP 30 ML UDC PO PRN (15:00)
[2017-02-17] MEDS ORDERED: ACETAMINOPHEN 325 MG TAB PO PRN (15:00)
[2017-02-17] MEDS ORDERED: ALUMINUM/MAGNESIUM/SIMETH (MAALOX MAX) 30 ML UDC PO PRN (15:00)
[2017-02-17] MEDS ORDERED: ONDANSETRON INJ 2 MG/ML 2 ML VIAL IV PRN (15:00)
--- NOTE | 2017-02-17 15:14 | History and Physical ---
History & Physical Date & Time of Service: February 17, 2017 at 15:00 Chief Complaint: Chest Pain, Diff. Breathing, Aching Legs Primary Care Physician: Shira Yarbrough MD History of Present Illness Source: patient, clinic records, hospital records This patient is a pleasant 61-year-old female that presents the emergency department with complaints of dyspnea on exertion, chest pain and lightheadedness that has gotten progressively worse over the last 2 weeks. The patient has a history of Agnongenic myeloid metaplasia, splenomegaly, cirrhosis and chronic anemia. In addition, the patient has a history of multiple pulmonary emboli. She is on chronic warfarin therapy. She was admitted to the hospital in November 2016 with GI bleeding. An EGD was performed. She was found to have grade 2 esophageal varices that were banded. She was supposed to have a repeat EGD in a few weeks. The patient is scheduled for repeat EGD with Dr. Blank on March 04. The patient denies any dark stools. Her bowel movements have been normal. She denies any abdominal pain, nausea or vomiting. She reports taking her medications as prescribed. The patient did discontinue her Protonix. She was never given a refill on the medication. ER workup consisted of blood work, EKG and chest x-ray. The patient was found to be anemic with a hemoglobin of 8.2. This dropped from 10.8 in approximately 2 weeks. INR is therapeutic at 2.5. Troponin negative. EKG with diffuse T- wave inversions however they do not appear new. During the patient's last admission in November, an echocardiogram was performed. No wall motion abnormalities were noted. EF was preserved. Past Medical/Surgical History Agnogenic myeloid metaplasia Splenomegaly, cirrhosis Esophageal varices/GI bleeding History of pulmonary emboli on chronic anticoagulation Family History Father in his 40s of a heart attack Mother is alive and well Social History Smoking Status: Never Smoker Alcohol Use: none Drug Use: none Marital Status: Housing status: lives with family Occupational Status: retired (retired last year) Immunizations History of Influenza Vaccine: Yes History of Tetanus Vaccine?: Yes History of Pneumococcal: Yes History of Hepatitis B Vaccine: No Multi-Drug Resistant Organisms History of MDRO: No Allergies Coded Allergies: No Known Allergies (Verified , 02/09/17) Home Medications Scheduled Cholecalciferol (Vitamin D), 2,000 UNIT PO QPM Citalopram Hydrobromide (Citalopram Hydrobromide), 1.5 TABS PO QPM Propranolol (Inderal), 10 MG PO TID Ruxolitinib Phosphate (Jakafi), 1 TAB PO BID Warfarin Sod (Coumadin), 7 MG PO WK Warfarin Sodium (Coumadin), 6 MG PO [id number] Review of Systems 10 system review performed and negative unless noted in HPI or below Physical Exam Vital Signs Date Time Temp Pulse Resp B/P Pulse Ox O2 Delivery O2 Flow Rate FiO2 02/17/17 14:30 82 19 137/78 97 Room Air 02/17/17 13:42 77 02/17/17 12:30 76 28 121/52 96 Room Air 02/17/17 10:57 74 02/17/17 10:33 36.7 75 18 111/60 97 Room Air General Appearance: no apparent distress Head: normocephalic Eyes: EOMI ENT: + pertinent finding (buccal mucosa pale) Neck: no JVD Respiratory/Chest: + pertinent finding (slight decreased breath sounds at the right base. Otherwise clear.) Cardiovascular: regular rate, rhythm, + systolic murmur (faint systolic murmur. ) Abdomen/GI: normal bowel sounds, non tender, soft Extremities/Musculoskelatal: no calf tenderness, no pedal edema, + pertinent finding (few areas of ecchymosis noted on the legs bilaterally.) Neurologic/Psych: no motor/sensory deficits, normal reflexes Skin: warm/dry, + pallor Lymphatic: no adenopathy Diagnostics Laboratory Results Results Past 24 Hours Test 02/17/17 10:55 Range/Units White Blood Count 4.71 4.8-10.8 K/uL Red Blood Count 3.02 4.2-5.4 M/uL Hemoglobin 8.2 12.0-16.0 g/dL Hematocrit 25.7 37-47 % Mean Corpuscular Volume 85.1 80-100 fL Mean Corpuscular Hemoglobin 27.2 25-34 pg Mean Corpuscular Hemoglobin Concent 31.9 32-36 g/dl Platelet Count 45 130-400 K/uL RDW Standard Deviation 62.2 36.4-46.3 fL RDW Coefficient of Variation 20.5 11.5-14.5 % Nucleated RBC Absolute Count (auto) 0.71 0-0 K/uL Neutrophils % (Manual) 67.0 % Lymphocytes % (Manual) 18.9 % Monocytes % (Manual) 6.6 % Eosinophils % (Manual) 1.9 % Basophils % (Manual) 0.9 % Metamyelocytes % 2.8 % Myelocytes % 1.9 % Nucleated Red Blood Cells % 15.1 % Neutrophils # (Manual) 3.16 1.4-6.5 K/uL Total Absolute Neutrophils 3.16 1.4-6.5 K/uL Lymphocytes # (Manual) 0.89 1.2-3.4 K/uL Total Absolute Lymphocytes 0.89 1.2-3.4 K/uL Monocytes # (Manual) 0.31 0.11-0.59 K/uL Eosinophils # (Manual) 0.09 0-0.5 K/uL Basophils # (Manual) 0.04 0-0.2 K/uL Metamyelocytes # 0.13 0-0 K/uL Myelocytes # 0.09 0-0 K/uL Platelet Estimate DECREASED Polychromasia 1+ Anisocytosis PRESENT Tear Drop Cells 3+ Prothrombin Time 28.3 9.0-12.0 SECONDS Prothromb Time International Ratio 2.5 0.9-1.1 Sodium Level 143 136-145 mmol/L Potassium Level 4.0 3.5-5.1 mmol/L Chloride Level 110 98-107 mmol/L Carbon Dioxide Level 26 21-32 mmol/L Anion Gap 7.0 3-11 mmol/L Blood Urea Nitrogen 17 7-18 mg/dl Creatinine 0.97 0.60-1.20 mg/dl Est Creatinine Clear Calc Drug Dose 58.8 ml/min Estimated GFR () 74.1 Estimated GFR (Non- 63.9 BUN/Creatinine Ratio 17.4 10-20 Random Glucose 79 70-99 mg/dl Calcium Level 8.3 8.5-10.1 mg/dl Total Creatine Kinase 25 26-192 U/L Creatine Kinase MB < 0.5 0.5-3.6 ng/ml Creatine Kinase MB Ratio 0-3.0 Troponin I < 0.015 0-0.045 ng/ml Diagnostic Radiology Patient Name: SANTA ANNA Unit Number: [id number] Dictated: 02/17/17 1241 Transcribed: 02/17/17 1241 ARG Printed Date/Time: [~ rep prt dt]/[~ rep prt tm] [~ rep ct labl] - [~ rep ct ivnm] [facility] [place] [address] Dictated: 02/17/171240 Transcribed: 02/17/17 124 ARG Printed Date/Time: [~ rep prt dt]/[~ rep prt tm] [~ rep ct labl] - [~ rep ct ivnm] CT ANGIOGRAM OF THE CHEST CLINICAL HISTORY: Chest pain and difficulty breathing. History of prior pulmonary embolism. COMPARISON STUDY: CT angiography the chest dated 11/28/2016, CT scan of chest dated 02/02/2017 TECHNIQUE: Following the IV administration of 92 mL of [id number]-[id number], CT angiogram of the thorax was performed from the thoracic inlet to the lung bases utilizing the pulmonary embolus protocol. Images are reviewed in the axial, sagittal, and coronal planes. IV contrast was administered without complication. MIP imaging was performed. CT DOSE: 204.36 mGy.cm FINDINGS: No pathologically enlarged axillary mediastinal or hilar lymph nodes were visualized. There was no evidence of thoracic aortic dilatation. There were no pulmonary artery filling defects to indicate acute pulmonary embolism. 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 No pleural effusions are visualized. There are multifocal nodular airspace opacities, similar to the preceding study. There is pronounced splenomegaly. There is diffuse skeletal sclerosis with scattered small lytic lesions. IMPRESSION: 1. 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 No evidence of acute pulmonary embolism 3. Multiple bilateral nodular pulmonary opacities, similar to the preceding study. Again the stability mitigates against an acute infectious process. If not previously performed, bronchoscopic biopsy evaluation might be considered in follow-up 4. Pronounced splenomegaly 5. Diffuse bony sclerosis with additional small lytic lesions similar to the prior study Electronically signed by: Kehinde Collins M.D. 02/17/2017 12:48 PM Dictated Date/Time: 02/17/2017 12:41 PM The status of this report is Signed. Draft = Not yet reviewed or approved by Radiologist. Signed = Reviewed and approved by Radiologist. <AttendingPhy></AttendingPhy> <FamilyPhy>Shira Yarbrough MD</FamilyPhy> < PrimaryPhy>Shira Yarbrough MD</PrimaryPhy> <UnitNumber>[id number]</UnitNumber > <VisitNumber>[id number]</VisitNumber> <PatientName>SANTA ANNA</ PatientName> <DateOfBirth>1955</DateOfBirth> <Location>[facility]</Location> < ServiceDate>02/17/17</ServiceDate> <MNE>ESINDI</MNE> <OrderingPhy>Rai Hannon MD</OrderingPhy> <OrderingPhyMNE>f rep ord dr toney</OrderingPhyMNE> < DictatingPhyMNE>f rep dict dr toney</DictatingPhyMNE> <CCListMNE>f rep ct [place]</ CCListMNE> <AdmittingPhyMNE>f pt admit dr toney</AdmittingPhyMNE> <AttendingPhyMNE >f pt attend dr toney</AttendingPhyMNE> <ConsultingPhyMNE>f pt consult dr toney</ConsultingPhyMNE> <FamilyPhyMNE>f pt fam dr toney</FamilyPhyMNE> <OtherPhyMNE>f pt other dr toney</OtherPhyMNE> < PrimaryPhyMNE>f pt prim care dr toney</PrimaryPhyMNE> <ReferringPhyMNE>f pt referring dr toney</ReferringPhyMNE> EKG Normal sinus rhythm 69 bpm T-wave inversions noted in the anterior lateral and inferior leads-these do not appear new. Impression Assessment and Plan 61-year-old female with, again medical history of chronic PEs, pancytopenia, GI bleeding presented to the emergency department with lightheadedness, chest pain and dyspnea. Found to be anemic and guaiac positive Chest pain, dyspnea-likely secondary to anemia-Hgb dropped from 10.8-8.2 in 2 weeks -Admit to telemetry -Serial cardiac enzymes -Daily EKG -I will hold off on echo as it is likely demand ischemia Likely upper GI bleed secondary to varices -NPO for now -recheck H&H at 1700-if stable, could do clear liquids tonight. NPO after midnight -protonix 40 mg IV BID -GI consult -possible EGD in am (pt is due for repeat EGD) -continue Propranolol 10 mg po TID with sip of water Hx of PE-no acute PE on CT. -Since pt is c/o leg pain, Bilateral LE US to r/o new DVT -unfortunately, we will have to hold her coumadin although I will not give her any reversal unless she starts dropping her H&H or having dark stool Agnongenic Myeloid Metaplasia-pancytopenic -follow CBC -hold Jakafi 20 mg po BID tonight Depression -continue Citalopram DVT prophylaxis -If US is negative, TEDS, SCDs CODE STATUS -LEVEL I FULL CODE VTE Prophylaxis VTE Risk Assessment Done? Y/N: Yes Risk Level: Moderate Given or contraindicated: Contraindicated Reviewed: Pt Seen/Exam by Me History No chest pain at present. Denies recent abd pain, n/v. No blood in her stool. She states her appetite has been low recently. No SOB. Agree with HPI/ROS as noted. General Appearance: WD/WN, no apparent distress Respiratory: normal breath sounds, no respiratory distress Cardiovascular: normal peripheral pulses, regular rate, rhythm Gastrointestinal: non tender, soft Extremities: non-tender, no pedal edema Neurologic/Psychiatric: alert, normal mood/affect Skin Characteristics: normal color, warm/dry Assessment/Plan Agree with plan as outlined above Hb 8.2, serial H/H and transfuse PRN C-scope in AM Giving vit K 2.5mg PO for less INR reversal given hx of PE and MDS
--- NOTE | 2017-02-17 15:49 | DIAGNOSTIC IMAGING REPORT ---
ULTRASOUND VENOUS DOPPLER LWR EXT BILA CLINICAL HISTORY: Bilateral leg pain. History of prior DVTs. COMPARISON STUDY: No previous studies for comparison. FINDINGS: Real-time and color flow Doppler imaging were performed. Flow was seen within the femoral, popliteal and calf veins with no intraluminal thrombus demonstrated. The saphenous vein is patent. IMPRESSION: No evidence of lower extremity DVT. Electronically signed by: Kehinde Collins M.D. 02/17/2017 3:47 PM Dictated Date/Time: 02/17/2017 3:47 PM
[2017-02-17 16:04] VITALS: BP 116/71; PULSE 75; TEMP 36.8; O2SAT 92
[2017-02-17 16:39] VITALS: Ht 162.6 cm; Wt 65.7 kg
[2017-02-17 17:23] LABS: HEMATOCRIT 24.4 % (37-47)
[2017-02-17 20:00] VITALS: BP 121/78; PULSE 77; TEMP 36.6; O2SAT 95
[2017-02-17] MEDS ORDERED: PHYTONADIONE 5 MG TAB PO ONE (20:15)
[2017-02-17] MEDS: PROPRANOLOL HCL 10 MG TAB PO SCH (20:47)
[2017-02-17] MEDS: CITALOPRAM 20 MG TAB PO SCH (20:47)
[2017-02-17] MEDS ORDERED: RUXOLITINIB PHOSPHATE PO SCH (21:00)
--- NOTE | 2017-02-17 23:20 | DIAGNOSTIC IMAGING REPORT ---
DOPPLER ULTRASOUND OF THE HEPATIC AND PORTAL VASCULATURE CLINICAL HISTORY: GI bleeding. COMPARISON STUDY: Abdominal CT dated 11/28/2016. TECHNIQUE: Real-time, grayscale, and color Doppler sonography of the hepatic and portal vasculature is performed. FINDINGS: The spleen is markedly enlarged, measuring over 24 cm in length. The splenic vein is patent. The main portal vein is patent and demonstrates hepatopedal flow. Velocities within the main portal vein measure up to 37 cm/s. The right and left main portal veins are patent. The hepatic artery is patent, with velocities measuring up to 132 cm/s. The IVC is patent. The main, left, and right hepatic veins are patent. There is blunting of the normal hepatic venous waveform. IMPRESSION: 1. The hepatic veins and main portal veins are patent with normal direction of flow. 2. There is blunting of the normal hepatic venous waveforms. 3. The hepatic artery is patent. 4. Marked splenomegaly. Dictated: 02/17/2017 11:00 PM Transcribed: 02/17/2017 11:19 PM ANGÉLICA_Alejandro Electronically signed by: Vishnu Dutton M.D. 02/18/2017 9:15 AM Dictated Date/Time: 02/17/2017 11:00 PM
[2017-02-17 23:34] VITALS: BP 120/74; PULSE 79; TEMP 37.1; O2SAT 96
[2017-02-18] VITALS (8 sets, daily range): BP systolic 100–119; BP diastolic 61–72; PULSE 72–81; TEMP 36.6–37.4; O2SAT 93–98
[2017-02-18 00:48] LABS: HEMATOCRIT 24.9 % (37-47)
[2017-02-18 05:24] LABS: PROTHROMBIN TIME (PATIENT) 21.5 SECONDS (9.0-12.0)
[2017-02-18 05:32] LABS: BLOOD UREA NITROGEN 15 mg/dl (7-18); BUN/CREATININE RATIO 14.6 (10-20); CALCIUM 8.3 mg/dl (8.5-10.1); CARBON DIOXIDE 28 mmol/L (21-32); CHLORIDE 110 mmol/L (98-107); GLUCOSE 95 mg/dl (70-99); POTASSIUM 4.5 mmol/L (3.5-5.1); SODIUM 143 mmol/L (136-145)
--- NOTE | 2017-02-18 07:45 | GASTROINTESTINAL CONSULTATION ---
DATE OF CONSULTATION: 02/17/2017 CHIEF COMPLAINT: Heme positive stools, anemia, portal hypertension, myelodysplasia. HISTORY OF PRESENT ILLNESS: Mrs. Roy is a 61-year-old white female with a longstanding hematologic abnormality, who presented to the Emergency Room with dyspnea on exertion, chest discomfort and lightheadedness that has been a progressive pattern. The patient denies any melena or bright red blood per rectum and reports that a few months ago, hemoglobin was satisfactory, but she does have a history of portal hypertension and in November 2016 was found to have gastroesophageal varices and underwent one session of banding. A follow up revealed ulcerations from those bandings. She was also placed on propranolol for nonselective beta blockade. Follow up labs show that her hemoglobin was slowly declining despite the absence of any overt GI bleeding. Initially, her evaluation was performed by [facility] gastroenterology however, because of insurance issues, she was rescheduled to see Dr. Blank at [facility] as an outpatient to continue her care. She is on Coumadin for recurrent PEs. Her cardiac workup was unrevealing in the ER and a recent echocardiogram showed no wall motion abnormalities with a satisfactory ejection fraction. PAST MEDICAL HISTORY: Inlcudes agnogeic myeloid metaplasia, splenomegaly, cirrhosis, hepatomegaly, esophageal varices with banding, recurrent pulmonary embolism. SOCIAL HISTORY: The patient denies tobacco or alcohol use. He is , lives with her family and is retired. FAMILY HISTORY: Significant for coronary artery disease with her father who of an NV. Mother is otherwise in good health. There are no hematologic or hepatic disorders in her family. ALLERGIES: She has no known drug allergies. CURRENT HOME MEDICATIONS: Include vitamin D3, citalopram, propranolol, ruxolitinib warfarin. REVIEW OF SYSTEMS: Otherwise noncontributory based on 14-point exam except for as mentioned above. The patient denies odynophagia, dysphagia, nausea, vomiting, hematemesis or coffee-ground emesis. She denies any significant abnormalities in gait or rashes. There is no hematuria or dysuria. PHYSICAL EXAMINATION: VITAL SIGNS: On admission on February 17, blood pressure 110/60, heart rate 75, respirations 18, pulse ox 97% on room air. She is 36.7. GENERAL: The patient is awake, alert and oriented x3. HEENT: Oral mucosa moist. NECK: There is no cervical or supraclavicular adenopathy. I do not appreciate thyromegaly. HEART: Normal S1, S2. LUNGS: Clear to auscultation without rales, rhonchi or wheezes. ABDOMEN: Soft, nontender, nondistended with normal active bowel sounds. There is evidence of spleen tip palpated. There are no abdominal bruits or masses. EXTREMITIES: Without clubbing, cyanosis or edema. There is no evidence of ascites or shifting dullness. The patient is heme positive per ER account. LABORATORY STUDIES: On admission, white count 4.7, hemoglobin was 8.2, MCV 85, platelets of 45,000 (the patient reports that she had had some of her hematologic medications held because of a declining hematologic parameters). Her INR on admission was 2.5, potassium 4.0, BUN and creatinine are 17 and 0.9. CPK is 25. Troponin is less than 0.015. 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 No evidence for acute PE. There are bilateral nodular opacities which are similar in comparison to prior studies. There was splenomegaly. IMPRESSION AND PLAN: Mrs. Roy has a complex hematologic disorder with reports of portal hypertension, prior esophageal varices, marked splenomegaly and what she describes were abnormalities that may have been on the hepatic side of the portal hypertension (post-hepatic portal hypertension). She is in the process of completing her banding protocol and this along with her heme positivity and declining hemoglobin that led to cardiopulmonary symptoms, I agree with prudent to pursue an upper endoscopy to assess for ongoing varices and to work towards completion of esophageal varix eradication. It has been 9 years by her account of a colonoscopy and I believe that too is prudent and this can either be arranged as an inpatient or an outpatient depending on her hospital course. In addition, we will obtain a portal Dopplers to assess for any change or acute portal vein thrombosis. Will need a mild correction of INR in anticipation of upper endoscopy and banding for tomorrow. Further recommendations will follow. We will need to clarify if the patient can undergo additional care through [facility] based on her [facility] insurance and will look to coordinate this. All questions answered.
[2017-02-18] MEDS: PANTOprazole INJ 40 MG in SYRINGE 0 ML IV SCH ×2 (08:03→21:05)
[2017-02-18] MEDS: PROPRANOLOL HCL 10 MG TAB PO SCH ×3 (08:04→21:06)
[2017-02-18 09:50] LABS: HEMATOCRIT 25.1 % (37-47)
[2017-02-18 13:24] LABS: INR 1.6 (0.9-1.1); PROTHROMBIN TIME (PATIENT) 17.1 SECONDS (9.0-12.0)
--- NOTE | 2017-02-18 15:31 | History & Physical Bridge Note ---
H&P Re-Evaluation Bridge Note: I have examined the patient, reviewed the History & Physical and in the interval since the performance of the History & Physical I have noted the following changes of clinical significance: No changes noted AAOX3 [id number] Lungs CTA Abd soft Nt/ND + BS - CCE
[2017-02-18] MEDS ORDERED: LIDOCAINE HCL 2% 2 ML VIAL (20MG/ML) ONE (15:47)
[2017-02-18] MEDS ORDERED: PROPOFOL IV EMULSION 10 MG/ML 20 ML VIAL IV ONE ×2 (15:47→16:03)
--- NOTE | 2017-02-18 16:17 | GI REPORT ---
Procedure Date: 02/18/2017 3:44 PM Procedure: Upper GI endoscopy Indications: Iron deficiency anemia secondary to chronic blood loss, Esophageal varices, Follow-up of esophageal varices, For therapy of esophageal varices Medicines: Propofol per Anesthesia Complications: No immediate complications. Estimated blood loss: None. Estimated Blood Loss: Estimated blood loss: none. Procedure: Pre-Anesthesia Assessment: - Prior to the procedure, a History and Physical was performed, and patient medications and allergies were reviewed. The patient's tolerance of previous anesthesia was also reviewed. The risks and benefits of the procedure and the sedation options and risks were discussed with the patient. All questions were answered, and informed consent was obtained. Prior Anticoagulants: The patient has taken no previous anticoagulant or antiplatelet agents. ASA Grade Assessment: III - A patient with severe systemic disease. After reviewing the risks and benefits, the patient was deemed in satisfactory condition to undergo the procedure. After obtaining informed consent, the endoscope was passed under direct vision. Throughout the procedure, the patient's blood pressure, pulse, and oxygen saturations were monitored continuously. The scope was introduced through the mouth, and advanced to the second part of duodenum. The upper GI endoscopy was accomplished without difficulty. The patient tolerated the procedure well. Findings: The upper third of the esophagus and middle third of the esophagus were normal. Grade II varices were found in the lower third of the esophagus. They were 3 mm in largest diameter. Four bands were successfully placed. There was no bleeding during, and at the end, of the procedure. The Z-line was irregular and was found 36 cm from the incisors. A small hiatus hernia was found. The proximal extent of the gastric folds (end of tubular esophagus) was 36 cm from the incisors. The hiatal narrowing was 38 cm from the incisors. The Z-line was 36 cm from the incisors. The exam of the stomach was otherwise normal. The duodenal bulb, first part of the duodenum and 2nd part of the duodenum were normal. Retained gastric contents are not identified on this exam. The cardia and gastric fundus were normal on retroflexion. Impression: - Normal upper third of esophagus and middle third of esophagus. - Grade II esophageal varices. Banded. - Z-line irregular, 36 cm from the incisors. - Small hiatus hernia. - Normal duodenal bulb, first part of the duodenum and 2nd part of the duodenum. - No specimens collected. Recommendation: - [facility]. - Will need colonoscopy as last was \R\ 9 years ago. Can arrange as inpt or outpatient. MD Reza Poon MD 02/18/2017 4:16:52 PM This report has been signed electronically. Note Initiated On: 02/18/2017 3:44 PM I attest to the content of the Intraoperative Record and orders documented therein, exceptions below
--- NOTE | 2017-02-18 16:19 | Anesthesiology Progress Note ---
Anesthesia Post Op Note Date & Time February 18, 2017 at 16:19 Vital Signs Pain Intensity: 0.0 Vital Signs Past 12 Hours Date Time Temp Pulse Resp B/P Pulse Ox O2 Delivery O2 Flow Rate FiO2 02/18/17 14:15 36.9 72 16 117/48 97 Room Air 02/18/17 12:30 Room Air 02/18/17 11:35 37.4 79 18 119/64 96 Room Air 02/18/17 08:30 Room Air 02/18/17 07:18 37.2 77 18 100/61 98 Room Air Notes Mental Status: alert / awake / arousable, participated in evaluation Pt Amnestic to Procedure: Yes Nausea / Vomiting: adequately controlled Pain: adequately controlled Airway Patency, RR, SpO2: stable & adequate BP & HR: stable & adequate Hydration State: stable & adequate Anesthetic Complications: no major complications apparent
--- NOTE | 2017-02-18 17:11 | Progress Note ---
Subjective Date of Service: February 18, 2017. Subjective this pt is doing well, although some heme positive stool. she is feeling weak and fatigues easily when walking Problem List Medical Problems: (1) Anemia Status: Acute (2) Chest pain Status: Acute (3) GI bleed Status: Acute Review of Systems Constitutional: + fatigue, + weakness, No chills, No fever Respiratory: No cough, No shortness of breath, No wheezing Cardiac: No chest pain, No edema, No orthopnea Abdomen: No constipation, No diarrhea, No nausea, No pain, No vomiting Musculoskeletal: No joint pain, No muscle pain Female : No dysuria, No urinary frequency Psychiatric: No anhedonism, No depression symptoms Objective Vital Signs Date Time Temp Pulse Resp B/P Pulse Ox O2 Delivery O2 Flow Rate FiO2 02/18/17 16:35 94 Room Air 02/18/17 16:30 70 16 94/54 98 Mask 3 02/18/17 16:20 70 16 87/47 96 Mask 3 02/18/17 16:05 70 16 92/69 94 Mask 8 02/18/17 14:15 36.9 72 16 117/48 97 Room Air 02/18/17 12:30 Room Air 02/18/17 11:35 37.4 79 18 119/64 96 Room Air 02/18/17 08:30 Room Air 02/18/17 07:18 37.2 77 18 100/61 98 Room Air 02/18/17 04:13 37.0 78 18 116/65 94 Room Air 02/18/17 04:00 Room Air 02/18/17 00:01 Room Air 02/18/17 00:01 Room Air 02/17/17 23:34 37.1 79 18 120/74 96 Nasal Cannula 02/17/17 20:00 Room Air 02/17/17 20:00 36.6 77 18 121/78 95 Room Air Physical Exam General Appearance: WD/WN, + mild distress Eyes: PERRL, EOMI Neck: supple, no JVD Respiratory/Chest: chest non-tender, lungs clear, normal breath sounds Cardiovascular: regular rate, rhythm, no murmur Abdomen: normal bowel sounds, non tender, soft Extremities: no pedal edema, no calf tenderness Neurologic/Psychiatric: alert, oriented x 3 Skin: normal color, warm/dry Laboratory Results Last 24 Hours Test 02/17/17 17:17 02/17/17 20:20 02/18/17 00:43 02/18/17 05:00 Hemoglobin 7.8 g/dL 7.8 g/dL Hematocrit 24.4 % 24.9 % Total Creatine Kinase 24 U/L 20 U/L Creatine Kinase MB < 0.5 ng/ml < 0.5 ng/ml Creatine Kinase MB Ratio Troponin I < 0.015 ng/ml < 0.015 ng/ml Prothrombin Time 21.5 SECONDS Prothromb Time International Ratio 2.0 Sodium Level 143 mmol/L Potassium Level 4.5 mmol/L Chloride Level 110 mmol/L Carbon Dioxide Level 28 mmol/L Anion Gap 5.0 mmol/L Blood Urea Nitrogen 15 mg/dl Creatinine 1.00 mg/dl Est Creatinine Clear Calc Drug Dose 57.2 ml/min Estimated GFR () 71.4 Estimated GFR (Non- 61.6 BUN/Creatinine Ratio 14.6 Random Glucose 95 mg/dl Calcium Level 8.3 mg/dl Test 02/18/17 09:33 02/18/17 13:10 Hemoglobin 7.7 g/dL Hematocrit 25.1 % Prothrombin Time 17.1 SECONDS Prothromb Time International Ratio 1.6 Assessment and Plan 61-with heme positive stools, history of varices with banding and no colonoscopy in recent times ( 9years) history of chronic PEs on coumadin, pancytopenia Chest pain, dyspnea-likely secondary to anemia-Hgb dropped from 10.8-8.2 in 2 weeks -Serial cardiac enzymes negative, Likely upper GI bleed secondary to varices -protonix 40 mg IV BID -GI consult performed EGD with no active bleeding and few varicies to band, will pursue colon as now is reversed with regard to her chronic anticoagulation , and no defined source for bleeding, Propranolol 10 mg po TID for portal hypertension Hx of PE-no acute PE on CT. negative DVT study and CTA, once colonoscopy is done will resume lovenox and coumadin, did get one dose vitamin K Agnongenic Myeloid Metaplasia-pancytopenic -follow CBC hold Jakafi 20 mg po BID Depression seems clinicaly stable Citalopram DVT prophylaxis, TEDS, SCDs resume full AC once able -LEVEL I FULL CODE
[2017-02-18] MEDS ORDERED: LAVAGE SOLUTION 4000ML PO SCH (19:00)
[2017-02-18] MEDS: CITALOPRAM 20 MG TAB PO SCH (21:06)
[2017-02-19] VITALS (7 sets, daily range): BP systolic 96–125; BP diastolic 49–85; PULSE 79–87; TEMP 36.5–37.1; O2SAT 94–97
[2017-02-19 06:30] LABS: INR 1.4 (0.9-1.1); PROTHROMBIN TIME (PATIENT) 14.8 SECONDS (9.0-12.0)
[2017-02-19 07:04] LABS: BUN/CREATININE RATIO 15.9 (10-20); CALCIUM 8.2 mg/dl (8.5-10.1); CREATININE 0.93 mg/dl (0.60-1.20); POTASSIUM 4.3 mmol/L (3.5-5.1)
[2017-02-19] MEDS: PROPRANOLOL HCL 10 MG TAB PO SCH ×3 (08:03→21:00)
[2017-02-19] MEDS: PANTOprazole INJ 40 MG in SYRINGE 0 ML IV SCH ×2 (08:03→20:58)
--- NOTE | 2017-02-19 12:22 | Progress Note ---
Subjective Date of Service: Feb 19, 2017. Subjective Pt feels weak and tired has no energy, otherwise no focal pain or complaints, has questions about why she is anemic and what her last CT scan showed Problem List Medical Problems: (1) Anemia Status: Acute (2) Chest pain Status: Acute (3) GI bleed Status: Acute Review of Systems Constitutional: + weakness, + fatigue, No fever, No chills Respiratory: No cough, No sputum, No shortness of breath, No dyspnea on exertion Cardiac: No chest pain, No orthopnea, No PND, No edema Abdomen: No pain, No nausea, No vomiting, No diarrhea Female : No dysuria, No urinary frequency Neurologic: No memory loss, No weakness Psychiatric: No depression symptoms, No anhedonism, No anxiety Objective Vital Signs Date Time Temp Pulse Resp B/P (MAP) Pulse Ox O2 Delivery O2 Flow Rate FiO2 02/19/17 12:09 Room Air 02/19/17 08:15 Room Air 02/19/17 07:16 37.0 83 20 96/49 (65) 95 Room Air 106/66 (79) 02/19/17 05:33 36.5 81 20 118/71 (87) 94 Room Air 02/19/17 04:00 Room Air 02/19/17 00:00 Room Air 02/18/17 23:47 36.6 81 20 119/70 (86) 95 Room Air 02/18/17 20:00 96 Room Air 02/18/17 19:59 37.0 72 18 116/68 (84) 96 Room Air 02/18/17 16:35 94 Room Air 02/18/17 16:30 70 16 94/54 98 Mask 3 02/18/17 16:30 36.7 72 16 113/72 (86) 93 Room Air 02/18/17 16:20 70 16 87/47 96 Mask 3 02/18/17 16:05 70 16 92/69 94 Mask 8 02/18/17 16:00 94 Room Air 02/18/17 14:15 36.9 72 16 117/48 97 Room Air 02/18/17 12:30 Room Air Physical Exam General Appearance: WD/WN, + mild distress Neck: supple, no JVD, trachea midline Respiratory/Chest: chest non-tender, lungs clear, normal breath sounds Cardiovascular: regular rate, rhythm, no murmur Abdomen: normal bowel sounds, non tender, soft Extremities: no pedal edema, no calf tenderness Neurologic/Psychiatric: alert, oriented x 3 Laboratory Results Last 24 Hours Test 02/18/17 13:10 02/19/17 05:51 Prothrombin Time 17.1 SECONDS 14.8 SECONDS Prothromb Time International Ratio 1.6 1.4 Sodium Level 143 mmol/L Potassium Level 4.3 mmol/L Chloride Level 109 mmol/L Carbon Dioxide Level 24 mmol/L Anion Gap 10.0 mmol/L Blood Urea Nitrogen 15 mg/dl Creatinine 0.93 mg/dl Est Creatinine Clear Calc Drug Dose 60.8 ml/min Estimated GFR () 78.0 Estimated GFR (Non- 67.3 BUN/Creatinine Ratio 15.9 Random Glucose 85 mg/dl Calcium Level 8.2 mg/dl Assessment and Plan 61-with heme positive stools, history of varices with banding and no colonoscopy in recent times ( 9years) history of chronic PEs on coumadin, pancytopenia Chest pain, dyspnea-likely secondary to anemia-Hgb dropped from 10.8- in 2 weeks -Serial cardiac enzymes negative, maybe symptomatic from anemia Anemia, mixed likely of chronic disease and also blood loss Varicies seen and banded no defined bleeding areas -protonix 40 mg transition to po -GI consult performed EGD with no active bleeding and few varicies to band, will pursue colon as now is reversed with regard to her chronic anticoagulation , and no defined source for bleeding, Propranolol 10 mg po TID for portal hypertension transfusion may help symptomatic anemia Hx of PE-no acute PE on CT. negative DVT study and CTA, once colonoscopy is done will resume lovenox and coumadin, did get one dose vitamin K Agnongenic Myeloid Metaplasia-pancytopenic -follow CBC hold Jakafi 20 mg po BID Depression seems clinicaly stable Citalopram DVT prophylaxis, TEDS, SCDs resume full AC once able -LEVEL I FULL CODE
--- NOTE | 2017-02-19 15:07 | History & Physical Bridge Note ---
H&P Re-Evaluation Bridge Note: I have examined the patient, reviewed the History & Physical and in the interval since the performance of the History & Physical I have noted the following changes of clinical significance: No changes noted
[2017-02-19] MEDS ORDERED: PROPOFOL IV EMULSION 10 MG/ML 20 ML VIAL IV ONE (15:31)
--- NOTE | 2017-02-19 15:44 | Anesthesiology Progress Note ---
Anesthesia Post Op Note Date & Time Feb 19, 2017 at 15:44 Vital Signs Pain Intensity: 0 Vital Signs Past 12 Hours Date Time Temp Pulse Resp B/P (MAP) Pulse Ox O2 Delivery O2 Flow Rate FiO2 02/19/17 15:33 78 16 109/65 93 Room Air 02/19/17 14:39 37.2 85 20 119/82 96 Room Air 02/19/17 12:26 36.7 81 20 107/67 (80) 96 Room Air 02/19/17 12:09 Room Air 02/19/17 08:15 Room Air 02/19/17 07:16 37.0 83 20 96/49 (65) 95 Room Air 106/66 (79) 02/19/17 05:33 36.5 81 20 118/71 (87) 94 Room Air 02/19/17 04:00 Room Air Notes Mental Status: alert / awake / arousable, participated in evaluation Pt Amnestic to Procedure: Yes Nausea / Vomiting: adequately controlled Pain: adequately controlled Airway Patency, RR, SpO2: stable & adequate BP & HR: stable & adequate Hydration State: stable & adequate Anesthetic Complications: no major complications apparent
--- NOTE | 2017-02-19 16:00 | GI REPORT ---
Procedure Date: 02/19/2017 2:50 PM Procedure: Colonoscopy Indications: Iron deficiency anemia secondary to chronic blood loss Medicines: Propofol per Anesthesia Complications: No immediate complications. Estimated blood loss: None. Estimated Blood Loss: Estimated blood loss: none. Procedure: Pre-Anesthesia Assessment: - Prior to the procedure, a History and Physical was performed, and patient medications and allergies were reviewed. The patient's tolerance of previous anesthesia was also reviewed. The risks and benefits of the procedure and the sedation options and risks were discussed with the patient. All questions were answered, and informed consent was obtained. Prior Anticoagulants: The patient has taken no previous anticoagulant or antiplatelet agents. ASA Grade Assessment: III - A patient with severe systemic disease. After reviewing the risks and benefits, the patient was deemed in satisfactory condition to undergo the procedure. After I obtained informed consent, the scope was passed under direct vision. Throughout the procedure, the patient's blood pressure, pulse, and oxygen saturations were monitored continuously. The scope was introduced through the anus and advanced to the terminal ileum, with identification of the appendiceal orifice and IC valve. The colonoscopy was performed without difficulty. The patient tolerated the procedure well. The quality of the bowel preparation was fair. Findings: The perianal and digital rectal examinations were normal. Pertinent negatives include normal sphincter tone, no palpable rectal lesions and no anal lesion or abnormality was detected. The colon (entire examined portion) appeared normal. The terminal ileum appeared normal. The retroflexed view of the distal rectum and anal verge was normal and showed no anal or rectal abnormalities. Impression: - The entire examined colon is normal. - The examined portion of the ileum was normal. - The distal rectum and anal verge are normal on retroflexion view. - No specimens collected. Recommendation: - [facility] care. - Advance diet as tolerated. - Continue present medications. - Repeat colonoscopy in 10 years for screening purposes. - Rpeat EGD to assess variceal banding in 4 weeks. MD Reza Poon MD 02/19/2017 3:59:53 PM This report has been signed electronically. Note Initiated On: 02/19/2017 2:50 PM I attest to the content of the Intraoperative Record and orders documented therein, exceptions below
[2017-02-19] MEDS: CITALOPRAM 20 MG TAB PO SCH (20:59)
[2017-02-20] VITALS (16 sets, daily range): BP systolic 94–117; BP diastolic 53–77; PULSE 71–89; TEMP 36.5–36.9; O2SAT 92–99
[2017-02-20 06:59] LABS: INR 1.3 (0.9-1.1)
[2017-02-20 07:26] LABS: CREATININE 0.95 mg/dl (0.60-1.20)
[2017-02-20 07:27] LABS: CALCIUM 8.2 mg/dl (8.5-10.1); POTASSIUM 4.4 mmol/L (3.5-5.1)
[2017-02-20] MEDS ORDERED: LVNIS80 SC ×2 (07:43→11:24)
[2017-02-20] MEDS ORDERED: ENOXAPARIN 1 MG/KG SQ SCH (07:45)
--- NOTE | 2017-02-20 07:45 | Discharge Instructions ---
Discharge Instructions Date of Service Feb 20, 2017. Admission Reason for Admission: Gi Bleed Discharge Discharge Diagnosis / Problem: ANEMIA Discharge Goals Goal(s): Diagnostic testing, Therapeutic intervention Activity Recommendations Activity Limitations: resume your previous activity . Instructions / Follow-Up Instructions / Follow-Up RECOMMEND TAKING COUMADIN 10 MG ON EVENING OF 02/20, THEN RESUME NORMAL DOSING, PLEASE HAVE INR CHECKED ON FRIDAY 02/23 Current Hospital Diet Patient's current hospital diet: Regular Diet Discharge Diet Recommended Diet: Regular Diet Procedures Procedures Performed: COLONOSCOPY Pending Studies Studies pending at discharge: no Medical Emergencies . Who to Call and When: Medical Emergencies: If at any time you feel your situation is an emergency, please call 911 immediately. . Non-Emergent Contact Non-Emergency issues call your: Primary Care Provider, Oncologist Call Non-Emergent contact if: temperature is above 101, your pain is unusual for you . . "Provider Documentation" section prepared by Gerardo Hernandez. . VTE Core Measure Inpt VTE Proph given/why not?: Contraindicated
[2017-02-20] MEDS: PROPRANOLOL HCL 10 MG TAB PO SCH ×2 (08:01→13:31)
[2017-02-20 08:11] LABS: HEMATOCRIT 24.2 % (37-47)
[2017-02-20] MEDS ORDERED: PANTOprazole SOD 40 MG TAB PO SCH (09:00)
[2017-02-20 10:06] LABS: MEAN CORPUSCULAR HEMOGLOBIN 26.6 pg (25-34); RED BLOOD COUNT 2.78 M/uL (4.2-5.4); WHITE BLOOD COUNT 3.57 K/uL (4.8-10.8)
[2017-02-20 10:18] LABS: PLT ESTIMATE DECREASED
[2017-02-20 10:54] LABS: PLATELET COUNT 58 K/uL (130-400)
[2017-02-20 11:16] LABS: MEAN CORPUSCULAR HGB CONC 30.6 g/dl (32-36)
[2017-02-20 11:19] LABS: MEAN CELL VOLUME 83.2 fL (80-100)
--- NOTE | 2017-02-20 11:59 | Discharge Summary ---
Discharge Summary Date of Service Feb 20, 2017. Discharge Summary Admission Date: February 17, 2017 at 14:59 Discharge Date: Feb 20, 2017 Discharge Disposition: Home Principal Diagnosis: anemia Immunizations: Have You Had Influenza Vaccine: Yes History of Tetanus Vaccine?: Yes History of Pneumococcal: Yes History of Hepatitis B Vaccine: No Procedures: upper egd with n o active bleeding but banding of varicies colonoscopy without source of bleeding transfusion of 2 u prbc Medication Reconciliation New Medications: Enoxaparin (Lovenox) 80 Mg/0.8 Ml Inj 60 UNIT SC BID, #10 DOSE Continued Medications: Cholecalciferol (Vitamin D) 2,000 Unit Cap 2000 UNIT PO QPM Citalopram Hydrobromide (Citalopram Hydrobromide) 20 Mg Tab 1.5 TABS PO QPM Propranolol (Inderal) 10 Mg Tab 10 MG PO TID Warfarin Sod (Coumadin) 5 Mg Tab 7 MG PO WK FRIDAYS* Warfarin Sodium (Coumadin) 6 Mg Tab 6 MG PO [id number], TAB Discontinued Medications: Ruxolitinib Phosphate (Jakafi) 20 Mg Tab 1 TAB PO BID Discharge Exam Review of Systems: Constitutional: No fever, No chills Respiratory: No cough, No sputum Physical Exam: General Appearance: WD/WN, + mild distress Neck: supple, no JVD Respiratory/Chest: chest non-tender, lungs clear, normal breath sounds Neurologic/Psychiatric: alert, oriented x 3 Hospital Course 61-with heme positive stools, history of varices with banding and no colonoscopy in recent times ( 9years) history of chronic PEs on coumadin, pancytopenia Chest pain, dyspnea-likely secondary to anemia-Hgb dropped from 10.8- in 2 weeks -Serial cardiac enzymes negative, maybe symptomatic from anemia Anemia, mixed likely of chronic disease and also blood loss Varicies seen and banded no defined bleeding areas -GI consult performed EGD with no active bleeding and few varicies to band, colonoscopy with no defined source for bleeding, continue Propranolol 10 mg po TID for portal hypertension transfusion 2 u prbc forsymptomatic anemia Hx of PE-no acute PE on CT. negative DVT study and CTA, once colonoscopy is done will resume lovenox and coumadin, did get one dose vitamin K Agnongenic Myeloid Metaplasia-pancytopenic -stopped Jakafi 20 mg po BID follow up with heme to discuss strategy for anemia managemet Depression seems clinicaly stable Citalopram -LEVEL I FULL CODE Total Time Spent: Greater than 30 minutes This includes examination of the patient, discharge planning, medication reconciliation, and communication with other providers. Discharge Instructions Please refer to the electronic Patient Visit Report (Discharge Instructions) for additional information.
[2017-02-20] MEDS ORDERED: ENOXAPARIN 60 MG/0.6 ML SYR SQ SCH (12:00)
[2017-03-19] MEDS ORDERED: WARF5TAB90 PO (10:11)
[2017-03-27] MEDS ORDERED: PANT40TA PO (12:57)
[2017-03-27] MEDS ORDERED: [UNRECOGNIZED DRUG - CODE] PO (12:59)
== END 2017-02-20 15:17 | disposition home or self-care (01) | DRG 369 ==
LOC: ENRESERVDT → ENRESERVTM → C.EDB 10:31 → C.MED 14:59
PROVIDERS: ADMIT Family Medicine; ATTEND Internal Medicine
PROC: 06L34CZ Occlusion of Esophageal Vein with Extraluminal Device, Percutaneous Endoscopic Approach (ICD-10-PCS; principal; 2017-02-18 14:10)
PROC: 0DJD8ZZ Inspection of Lower Intestinal Tract, Via Natural or Artificial Opening Endoscopic (ICD-10-PCS; 2017-02-19)
DX: I85.01 Esophageal varices with bleeding (principal); D61.818 Other pancytopenia; K76.6 Portal hypertension; D50.0 Iron deficiency anemia secondary to blood loss (chronic); F32.9 Major depressive disorder, single episode, unspecified; K44.9 Diaphragmatic hernia without obstruction or gangrene; D73.1 Hypersplenism; Z79.01 Long term (current) use of anticoagulants; Z79.899 Other long term (current) drug therapy; Z86.711 Personal history of pulmonary embolism; Z82.49 Family history of ischemic heart disease and other diseases of the circulatory system

== ENCOUNTER → 2017-02-27 | Outpatient (CLI) | payer OTHER ==
[~2017-02-27] MED LIST changes: +CMD5 PO; +LVNIS80 SC; +PANT40TA PO; +WARF5TAB90 PO; -WARF7.5T PO
[2017-02-27 16:41] LABS: INR 3.2 (0.9-1.1); PROTHROMBIN TIME (PATIENT) 35.7 SECONDS (9.0-12.0)
== END | disposition home or self-care (01) ==
LOC: C.LABPBG 14:10
PROVIDERS: ATTEND Family Medicine
DX: K92.2 Gastrointestinal hemorrhage, unspecified (principal); Z79.01 Long term (current) use of anticoagulants

== ENCOUNTER → 2017-03-27 | Day surgery (SDC) | payer OTHER ==
[2017-02-09 08:56] VITALS: BMI 25.0
[2017-03-19 10:11] VITALS: BMI 25.0
[~2017-03-27] VITALS: Ht 160 cm; Wt 65.9 kg
[~2017-03-27] MED LIST changes: -CMD5 PO; +LIDOCAINE HCL 2% 2 ML VIAL (20MG/ML) ONE; -LVNIS80 SC; +PROPOFOL IV EMULSION 10 MG/ML 20 ML VIAL IV ONE; -WARF6TAB PO
[2017-03-27 12:44] VITALS: Ht 160 cm; Wt 65.9 kg
--- NOTE | 2017-03-27 13:40 | Endo History and Physical ---
History & Physical Date of Service: Mar 27, 2017. Chief Complaint: anemia d/t blood loss, esophageal varices Referring Physician: Dr. Contreras History of Present Illness 61 yo CF who presents for EGD secondary to chronic blood loss anemia and history of esophageal varices. Past Medical History Anxiety, High Cholesterol Past Surgical History Hx Cardiac Surgery: No Hx Internal Defibrillator: No Hx Pacemaker: No Hx Abdominal Surgery: No Hx of Implantable Prosthesis: No Hx Post-Op Nausea and Vomiting: No Hx Cancer Surgery: No Hx Thoracic Surgery: No Hx Orthopedic: No Hx Urinary Tract Surgery: No Family History None Social History Smoking Status: Unknown if Ever Smoked Hx Substance Use: No Hx Alcohol Use: No Allergies Coded Allergies: No Known Allergies (Verified , 03/19/17) Current Medications Reported Home Medications Medications Dose Route/Sig Max Daily Dose Days Date Category Jakafi (Ruxolitinib Phosphate) 20 Mg Tab PO BID 03/27/17 Reported Protonix (Pantoprazole Sodium) 40 Mg Tab 40 Mg PO BID 03/27/17 Reported Coumadin (Warfarin Sodium) 5 Mg Tab 5 Mg PO DIRECTED 03/19/17 Reported Citalopram Hydrobromide 20 Mg Tab 1.5 Tabs PO QPM 12/11/16 Reported Inderal (Propranolol HCl) 10 Mg Tab 10 Mg PO TID 12/11/16 Reported Vitamin D (Cholecalciferol) 2,000 Unit Cap 2,000 Unit PO QPM 06/12/14 Reported Vital Signs Weight (Kilograms): 65.91 Height (Feet): 5 Height (Inches): 3 Date Time Temp Pulse Resp B/P (MAP) Pulse Ox O2 Delivery O2 Flow Rate FiO2 03/27/17 12:42 36.7 66 20 113/52 (72) 95 Room Air Physical Exam General Appearance: WD/WN, no apparent distress Respiratory/Chest: Auscultation: breath sounds normal Cardiovascular: Heart Auscultation: RRR Abdomen: Bowel Sounds: normal Inspection & Palpation: soft, non-distended, no tenderness, guarding & rebound Assessment and Plan Assessment: 61 yo CF who presents for EGD secondary to chronic blood loss anemia and history of esophageal varices. Plan: Proceed with EGD.
--- NOTE | 2017-03-27 14:41 | GI REPORT ---
Procedure Date: 03/27/2017 1:44 PM Procedure: Upper GI endoscopy Indications: Iron deficiency anemia secondary to chronic blood loss, Follow-up of esophageal varices Medicines: Monitored Anesthesia Care Complications: No immediate complications. Estimated Blood Loss: Estimated blood loss: none. Procedure: Pre-Anesthesia Assessment: - Prior to the procedure, a History and Physical was performed, and patient medications and allergies were reviewed. The patient's tolerance of previous anesthesia was also reviewed. The risks and benefits of the procedure and the sedation options and risks were discussed with the patient. All questions were answered, and informed consent was obtained. Prior Anticoagulants: The patient has taken Coumadin (warfarin), last dose was 2 days prior to procedure. ASA Grade Assessment: III - A patient with severe systemic disease. After reviewing the risks and benefits, the patient was deemed in satisfactory condition to undergo the procedure. After obtaining informed consent, the endoscope was passed under direct vision. Throughout the procedure, the patient's blood pressure, pulse, and oxygen saturations were monitored continuously. The scope was introduced through the mouth, and advanced to the second part of duodenum. The upper GI endoscopy was accomplished without difficulty. The patient tolerated the procedure well. Findings: A 3 mm post variceal banding scar was found in the lower third of the esophagus. The scar tissue was healthy in appearance. Localized mild inflammation characterized by erythema was found in the gastric antrum. The examined duodenum was normal. Impression: - Scar in the lower third of the esophagus. - Gastritis. - Normal examined duodenum. - No specimens collected. Recommendation: - Resume previous diet. - Continue present medications. - Return to primary care physician as previously scheduled. Vitaly Blank, 03/27/2017 2:40:44 PM This report has been signed electronically. Note Initiated On: 03/27/2017 1:44 PM I attest to the content of the Intraoperative Record and orders documented therein, exceptions below
--- NOTE | 2017-03-27 14:42 | Discharge Instructions ---
Endoscopy Patient Instructions Date / Procedure(s) Performed Mar 27, 2017. EGD Allergy Information Coded Allergies: No Known Allergies (Verified , 03/19/17) Discharge Date / Findings Mar 27, 2017. Scarring from prior Variceal banding Mild gastritis Medication Instructions Stopped Medication(s): Coumadin stopped 03/25/17 OK to resume all medications today as prescribed Reported Home Medications Medications Dose Route/Sig Max Daily Dose Days Date Category Jakafi (Ruxolitinib Phosphate) 20 Mg Tab PO BID 03/27/17 Reported Protonix (Pantoprazole Sodium) 40 Mg Tab 40 Mg PO BID 03/27/17 Reported Coumadin (Warfarin Sodium) 5 Mg Tab 5 Mg PO DIRECTED 03/19/17 Reported Citalopram Hydrobromide 20 Mg Tab 1.5 Tabs PO QPM 12/11/16 Reported Inderal (Propranolol HCl) 10 Mg Tab 10 Mg PO TID 12/11/16 Reported Vitamin D (Cholecalciferol) 2,000 Unit Cap 2,000 Unit PO QPM 06/12/14 Reported Provider Instructions Activity Restrictions - No exercising or heavy lifting for 24 hours. - Do not drink alcohol the day of the procedure. - Do not drive a car or operate machinery until the day after the procedure. - Do not make any important decisions or sign important papers in 24 hours after the procedure. Following Day: - Return to full activity which may include returning to work/school. Diet Start your diet with liquids and light foods (jello, soup, juice, toast). Then eat your usual diet if not nauseated. Treatment For Common After Affects For mild abdominal pain, bloating, or excessive gas: - Rest - Eat lightly - Lie on right side Follow-Up Information Follow-up with Dr. Contreras as scheduled Anesthesia Information What You Should Know You have had a procedure that required some medicine to reduce anxiety and discomfort. This treatment is called moderate sedation. After receiving the treatment, you may be sleepy, but you will be able to breathe on your own. The effects of the treatment may last for several hours. Follow these instructions along with Activity/Diet recommendations noted above: * Do NOT do anything where dizziness or clumsiness would be dangerous. * Rest quietly at home today, then you can be up and about tomorrow. * Have a responsible person stay with you the rest of today. * You may have had an I.V. today. If so, you may take the dressing off later today. Recommendations Call your doctor if: * Trouble breathing * Continuous vomiting for more than 24 hours * Temperature above 101 degrees * Severe abdominal pain or bloating * Pain not relieved by pain medicine ordered * There is increased drainage or redness from any incision * A large amount of rectal bleeding greater than 2-3 tablespoons. (If you had a polyp/s removed or have hemorrhoids, a small amount of blood - from the rectum is to be expected.) * You have any unanswered questions or concerns. IN THE EVENT OF A SERIOUS EMERGENCY, GO TO THE NEAREST EMERGENCY ROOM Your discharge instructions were prepared by provider Vitaly Blank. Patient Instructions Signature Page [place]g[facility] Roy Patient (or Guardian) Signature/Date: I have read and understand the instructions given to me by my caregivers. Caregiver/RN/Doctor Signature/Date: The above-named patient and/or guardian has received patient instructions on this date. + Original Patient Signature Page (only) stays with chart. Please make copy for patient.
--- NOTE | 2017-03-27 14:48 | Anesthesiology Progress Note ---
Anesthesia Post Op Note Date & Time Mar 27, 2017 at 14:48 Vital Signs Pain Intensity: 0 Vital Signs Past 12 Hours Date Time Temp Pulse Resp B/P (MAP) Pulse Ox O2 Delivery O2 Flow Rate FiO2 03/27/17 12:42 36.7 66 20 113/52 (72) 95 Room Air Notes Mental Status: alert / awake / arousable, participated in evaluation Pt Amnestic to Procedure: Yes Nausea / Vomiting: adequately controlled Pain: adequately controlled Airway Patency, RR, SpO2: stable & adequate BP & HR: stable & adequate Hydration State: stable & adequate Anesthetic Complications: no major complications apparent
[2017-03-27 15:18] VITALS: BP 101/50; PULSE 64; O2SAT 94
== END | disposition home or self-care (01) ==
LOC: C.GI 12:11
PROVIDERS: ATTEND Internal Medicine
DX: D50.0 Iron deficiency anemia secondary to blood loss (chronic) (principal); I85.00 Esophageal varices without bleeding; K29.70 Gastritis, unspecified, without bleeding; E78.00 Pure hypercholesterolemia, unspecified

== ENCOUNTER → 2017-04-09 | Outpatient (CLI) | payer OTHER ==
[~2017-04-09] MED LIST changes: -LIDOCAINE HCL 2% 2 ML VIAL (20MG/ML) ONE; -PROPOFOL IV EMULSION 10 MG/ML 20 ML VIAL IV ONE
--- NOTE | 2017-04-09 14:36 | DIAGNOSTIC IMAGING REPORT ---
SKELETAL SURVEY COMPLETE HISTORY: 61 years-old Female MYALOPROLIFERATIVE DISORDER COMPARISON: Chest CT 02/17/2017, chest radiograph 11/28/2016, head CT 11/28/2016 TECHNIQUE: Multiple radiographs of the axial and appendicular skeletal system were obtained following skeletal survey protocol. FINDINGS: There is a diffusely permeative/moth-eaten appearance of the bones. Apparent lytic lesions of the bilateral proximal femora are seen measuring up to approximately 1.2 cm. No pathologic fracture is seen. Scattered lytic lesions are seen throughout the spine, largest of which is at L4, 1.8 x 2.0 cm. A pathologic compression deformity. Incidental findings include intervertebral disc space narrowing at C6-C7. There are patchy consolidative opacities within the bilateral lungs, notably the right greater than left upper lobes. Massive splenomegaly is noted. IMPRESSION: 1. Diffusely permeative/moth-eaten appearance of the skeletal structures, notably within the spine, pelvis and extremities is noted with multiple associated scattered lytic lesions. No associated pathologic fracture is identified. Differential considerations would include multiple myeloma, lymphoma, leukemia or metastasis among other etiologies. 2. Patchy consolidative opacities in the bilateral lungs suggests pneumonitis. 3. Massive splenomegaly redemonstrated. The above report was generated using voice recognition software. It may contain grammatical, syntax or spelling errors. Electronically signed by: Tevin Cassidy M.D. 04/09/2017 2:34 PM Dictated Date/Time: 04/09/2017 2:27 PM
== END | disposition home or self-care (01) ==
LOC: C.RAD 13:32
PROVIDERS: ATTEND Internal Medicine Hematology & Oncology
DX: D47.1 Chronic myeloproliferative disease (principal)

== ENCOUNTER 2017-10-05 16:15 | Emergency (ER) | payer OTHER ==
[~2017-10-05] VITALS: Ht 162.6 cm; Wt 68.4 kg
[2017-10-05 16:21] VITALS: TEMP 36.5; Ht 162.6 cm; Wt 68.4 kg
--- NOTE | 2017-10-05 17:06 | DIAGNOSTIC IMAGING REPORT ---
R TIBIA/FIBULA 2 VIEWS ROUTINE CLINICAL HISTORY: Right leg pain COMPARISON: None. DISCUSSION: No fractures or dislocations are visualized. There are no erosive or destructive changes. IMPRESSION: No significant bony abnormalities. Electronically signed by: Kehinde Collins M.D. 10/05/2017 5:05 PM Dictated Date/Time: 10/05/2017 5:04 PM
--- NOTE | 2017-10-05 17:22 | DIAGNOSTIC IMAGING REPORT ---
ULTRASOUND R VENOUS DOPP LOWER EXT UNILAT CLINICAL HISTORY: R leg pain - h/o DVT COMPARISON STUDY: 02/17/2017 FINDINGS: Real-time and color flow Doppler imaging were performed. Flow was seen within the femoral, popliteal and calf veins with no intraluminal thrombus demonstrated. The saphenous vein is patent. IMPRESSION: No evidence of right lower extremity DVT. Electronically signed by: Kehinde Collins M.D. 10/05/2017 5:21 PM Dictated Date/Time: 10/05/2017 5:20 PM
[2017-10-05 18:02] VITALS: BP 105/58; PULSE 68; O2SAT 97
--- NOTE | 2017-10-05 19:13 | EMERGENCY ROOM VISIT NOTE ---
History First contact with patient: 16:23 Chief Complaint: LEG PAIN,LEG INJURY Stated Complaint: RT LEG PAIN- HX BLOOD CLOTS History of Present Illness The patient is a 62 year old female who presents to the Emergency Room with complaints of right anterior leg pain for the past 3 days. The patient reports a prior history of DVT, and is concerned that she could have another one. The patient is currently on Coumadin for history of DVT and pulmonary embolus. The patient also has a history of myelodysplastic syndrome. The patient did have a bone scan 2 months ago that showed multiple bony lesions. She has not been diagnosed with multiple myeloma. She denies any recent injury to the right leg. She denies any back pain, paresthesias or numbness of the right lower extremity. Weightbearing worsens her pain to a 4 out of 10. Review of Systems 10 system review was performed and was negative except for pertinent positives and negatives as indicated in history of present illness Past Medical/Surgical History Medical Problems: (1) GI bleed (2) Pneumonia (3) Upper GI bleed Medical Problems: (1) Adhesive Capsulitis Of Left Shoulder (2) Diaphragmatic Hernia (3) Diverticulosis Colon (W/O Ment Of Hemorrhage) (4) GI bleed (5) Hyperlipidemia Nec/Nos (6) Iron Deficiency Anemia Secondary To Blood Loss (Chronic) (7) Major Depressive Disorder, Single Episode, Unspecified (8) Myelodysplastic Syndrome, Unspecified (9) Myelofibrosis (10) Oth Pulmon Embolism/Infarct (11) Pneumonia (12) Portal Hypertension (13) Reflux Esophagitis (14) Splenomegaly (15) Upper GI bleed (16) Vitamin D Deficiency Nos Surgical Problems: (1) Tubal Ligation Status Family History Unremarkable Social History Smoking Status: Never Smoker Alcohol Use: none Drug Use: none Marital Status: Housing Status: lives with family Occupation Status: retired Current/Historical Medications Scheduled Cholecalciferol (Vitamin D), 2,000 UNIT PO QPM Citalopram Hydrobromide (Citalopram Hydrobromide), 1.5 TABS PO QPM Pantoprazole (Protonix), 40 MG PO BID Propranolol (Inderal), 10 MG PO TID Ruxolitinib Phosphate (Jakafi), PO BID Warfarin Sodium (Coumadin), 5 MG PO DIRECTED Physical Exam Vital Signs Date Time Temp Pulse Resp B/P (MAP) Pulse Ox O2 Delivery O2 Flow Rate FiO2 10/05/17 18:02 68 18 105/58 97 10/05/17 16:21 36.5 72 16 128/77 93 Room Air Physical Exam CONSTITUTIONAL: Healthy and well nourished. Alert and oriented X 3 with positive affect. Patient does not appear in any acute distress. HEENT: Normocephalic, atraumatic. Pupils equal, round and reactive. NECK: Full active range of motion without discomfort. RESPIRATORY: Clear to auscultation bilaterally with no wheezing, crackles, rhonchi or stridor. CARDIOVASCULAR: Regular rate and rhythm with no murmurs, rubs or gallops. MUSCULOSKELETAL: Examination of the right leg does not show any obvious soft tissue edema, ecchymosis or other skin lesions. She has minimal tenderness through the anterior musculature. No focal tenderness through the tibial spine , anterior knee or knee joint. No tenderness about the ankle joint. No tenderness to palpation through the Achilles tendon or gastroc. Pedal pulses are intact. Negative logroll. Negative sitting straight leg raise. INTEGUMENTARY: No rash or other significant dermatologic conditions noted. NEUROLOGIC: Right lower extremity is sensory intact. Medical Decision & Procedures ER Provider Diagnostic Interpretation: My interpretation of right leg x-rays does not show any fractures, dislocation or concerning bony lesions. Radiologist report is as follows: R TIBIA/FIBULA 2 VIEWS ROUTINE CLINICAL HISTORY: Right leg pain COMPARISON: None. DISCUSSION: No fractures or dislocations are visualized. There are no erosive or destructive changes. IMPRESSION: No significant bony abnormalities. Venous ultrasound of the right lower extremity is negative for deep vein thrombosis. Radiologist report is as follows: ULTRASOUND R VENOUS DOPP LOWER EXT UNILAT CLINICAL HISTORY: R leg pain - h/o DVT COMPARISON STUDY: 02/17/2017 FINDINGS: Real-time and color flow Doppler imaging were performed. Flow was seen within the femoral, popliteal and calf veins with no intraluminal thrombus demonstrated. The saphenous vein is patent. IMPRESSION: No evidence of right lower extremity DVT. ED Course Patient history and physical exam were performed. Nurse's notes were reviewed. Vital signs were reviewed and were normal. The patient refused any analgesics. X-rays and venous ultrasound of the right lower extremity were negative. The patient was encouraged to intermittently apply ice to the leg. She was encouraged also limit activities until symptoms improve. Tylenol as needed for pain. She may follow-up with her PCP as needed for further management if symptoms persist. The patient was happy with plan of care, voice understanding of all discharge instructions, and rated her discomfort a 2 out of 10 at the conclusion of my exam. Medical Decision Medication Reconcilliation Current Medication List: was personally reviewed by me Blood Pressure Screening Patient's blood pressure: Normal blood pressure Impression Primary Impression: Leg pain, right Departure Information Referrals Shira Yarbrough MD (PCP) Patient Instructions My [facility]
== END 2017-10-05 18:00 | disposition home or self-care (01) ==
LOC: C.EDB 16:16 → C.EDD 18:00
DX: M79.604 Pain in right leg (principal); D46.9 Myelodysplastic syndrome, unspecified; D75.81 Myelofibrosis; K21.0 Gastro-esophageal reflux disease with esophagitis; F32.9 Major depressive disorder, single episode, unspecified; Z86.711 Personal history of pulmonary embolism; Z86.718 Personal history of other venous thrombosis and embolism; Z87.01 Personal history of pneumonia (recurrent); Z98.51 Tubal ligation status; Z79.01 Long term (current) use of anticoagulants; Z79.899 Other long term (current) drug therapy

== ENCOUNTER → 2017-12-18 | Outpatient (CLI) | payer OTHER ==
[2017-12-18 14:49] LABS: ALBUMIN 3.7 gm/dl (3.4-5.0); ALT/SGPT 53 U/L (12-78); AST/SGOT 36 U/L (15-37); BLOOD UREA NITROGEN 24 mg/dl (7-18); CALCIUM 8.6 mg/dl (8.5-10.1); CARBON DIOXIDE 25 mmol/L (21-32); CREATININE 1.02 mg/dl (0.60-1.20); GLUCOSE 89 mg/dl (70-99); SODIUM 142 mmol/L (136-145)
[2017-12-18 14:52] LABS: ALKALINE PHOSPHATASE 101 U/L (45-117); TOTAL PROTEIN 6.7 gm/dl (6.4-8.2)
[2017-12-18 14:57] LABS: HEMATOCRIT 30.5 % (37-47); MEAN CELL VOLUME 87.1 fL (80-100); MEAN CORPUSCULAR HEMOGLOBIN 28.6 pg (25-34); MEAN CORPUSCULAR HGB CONC 32.8 g/dl (32-36); NUCLEATED RED BLOOD CELL ABS 0.26 K/uL (0-0); PLATELET COUNT 29 K/uL (130-400); RED CELL DISTRIBUTION WIDTH CV 17.9 % (11.5-14.5); RED CELL DISTRIBUTION WIDTH SD 56.2 fL (36.4-46.3); WHITE BLOOD COUNT 5.24 K/uL (4.8-10.8)
== END | disposition home or self-care (01) ==
LOC: C.LABPBG 10:37
PROVIDERS: ATTEND Family Medicine
DX: D47.1 Chronic myeloproliferative disease (principal)

== ENCOUNTER → 2017-12-29 | Outpatient (CLI) | payer OTHER ==
[~2017-12-29] MED LIST changes: +WARF2.5T8 PO
[2017-12-29 12:58] LABS: MEAN CORPUSCULAR HGB CONC 32.1 g/dl (32-36)
[2017-12-29 13:07] LABS: HEMATOCRIT 30.8 % (37-47); HEMOGLOBIN 9.9 g/dL (12.0-16.0); MEAN CELL VOLUME 86.5 fL (80-100); MEAN CORPUSCULAR HEMOGLOBIN 27.8 pg (25-34); RED CELL DISTRIBUTION WIDTH CV 17.9 % (11.5-14.5); RED CELL DISTRIBUTION WIDTH SD 56.2 fL (36.4-46.3); WHITE BLOOD COUNT 4.49 K/uL (4.8-10.8)
[2017-12-29 13:52] LABS: BASO % 5.3 %; BASO ABS # 0.24 K/uL (0-0.2); EOS % 1.6 %; EOS ABS # 0.07 K/uL (0-0.5); IG# 0.32 K/uL (0.00-0.02); LYMPH % 21.4 %; LYMPH ABS # 0.96 K/uL (1.2-3.4); MONO % 9.8 %; MONO ABS # 0.44 K/uL (0.11-0.59); NEUT % 54.8 %; NEUT ABS # 2.46 K/uL (1.4-6.5); NUCLEATED RED BLOOD CELL ABS 0.68 K/uL (0-0); PLATELET COUNT 40 K/uL (130-400)
== END | disposition home or self-care (01) ==
LOC: C.LABPBG 10:18
PROVIDERS: ATTEND Internal Medicine Hematology & Oncology
DX: D47.1 Chronic myeloproliferative disease (principal)

== ENCOUNTER 2018-01-05 11:24 | Inpatient (IN) | payer OTHER ==
[~2018-01-05] VITALS: Ht 162.6 cm; Wt 70.3 kg
[~2018-01-05 11:24] MED LIST changes: -WARF2.5T8 PO
[2018-01-05] MEDS ORDERED: WARF2.5T8 PO (11:56)
[2018-01-05 12:36] LABS: MEAN CORPUSCULAR HGB CONC 32.3 g/dl (32-36)
--- NOTE | 2018-01-05 12:40 | EMERGENCY ROOM VISIT NOTE ---
History Report prepared by Coretta: Berna Lopez Under the Supervision of: Dr. Vishnu Jalloh M.D. First contact with patient: 12:18 Chief Complaint: SHORTNESS OF BREATH Stated Complaint: CAN'T BREATH,LEGS HURT,RECENT TRANSFUSION History of Present Illness The patient is a 62 year old female who presents to the Emergency Room with complaints of worsening shortness of breath for the past two weeks. Her symptoms are worsened with exertion, but she states that she feels short of breath with just sitting still. She does not wear oxygen at home. She does not use inhalers. She states that she has never felt this short of breath before. The patient also reports a dry cough. She has a history of myelofibrosis and follows with Dr. Vergara of oncology. She was having symptoms 2 weeks ago and followed up with Dr. Vergara. He did labs at that time and found that her platelets and hemoglobin were low. The patient got a transfusion at that time. She reports that she received 2 units RBC, 1 unit platelets, and 2 units fluids. The patient states that she did not feel better after her transfusion and her symptoms have persisted. 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 She had her INR checked 1 week ago and states that it was high so her dosage was adjusted at that time. The patient denies any fevers or chest pain. She denies any personal history of asthma or CHF . Source of History: patient Onset: 2 weeks ago Position: chest Quality: other (shortness of breath) Timing: worsening Modifying Factors (Worsening): exertion Associated Symptoms: + cough, No fevers, No chest pain Review of Systems See HPI for pertinent positives & negatives. A total of 10 systems reviewed and were otherwise negative. 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) (7) Major Depressive Disorder, Single Episode, Unspecified (8) Myelodysplastic disease (9) Myelodysplastic Syndrome, Unspecified (10) Myelofibrosis (11) Oth Pulmon Embolism/Infarct (12) Pneumonia (13) Portal Hypertension (14) Reflux Esophagitis (15) Splenomegaly (16) Upper GI bleed (17) Vitamin D Deficiency Nos Surgical Problems: (1) Tubal Ligation Status Family History FH: heart disease Social History Smoking Status: Never Smoker Alcohol Use: none Drug Use: none Marital Status: Housing Status: lives with family Occupation Status: retired Current/Historical Medications Scheduled Cholecalciferol (Vitamin D), 2,000 UNIT PO QPM Citalopram Hydrobromide (Citalopram Hydrobromide), 30 MG PO QPM Pantoprazole (Protonix), 40 MG PO BID Propranolol (Inderal), 10 MG PO TID Warfarin Sod (Jantoven), 2.5 MG PO DAILY Allergies Coded Allergies: No Known Allergies (Verified , 12/23/17) Physical Exam Vital Signs Date Time Temp Pulse Resp B/P (MAP) Pulse Ox O2 Delivery O2 Flow Rate FiO2 01/05/18 16:44 79 16 179/96 94 01/05/18 15:07 147/ 01/05/18 13:11 79 28 89 01/05/18 13:06 78 17 92 01/05/18 12:54 Room Air 01/05/18 12:40 97 Room Air 01/05/18 12:36 79 20 96 01/05/18 12:31 139/76 01/05/18 12:30 80 01/05/18 12:24 78 94 01/05/18 12:01 139/74 01/05/18 11:54 79 17 01/05/18 11:43 169/92 01/05/18 11:34 64 20 144/83 97 Room Air Physical Exam GENERAL: Patient is in no acute distress. HEENT: No acute trauma, normocephalic atraumatic, mucous membranes moist, no nasal congestion, no scleral icterus. NECK: No stridor, no adenopathy, no meningismus, trachea is midline. LUNGS: Clear to auscultation bilaterally, no wheeze, no rhonchi, breath sounds equal. HEART: 2/6 systolic murmur, regular rate and rhythm. ABDOMEN: Soft, nontender, bowel sounds positive, no hernias, no peritonitis. EXTREMITIES: No cyanosis or edema, full range of motion of all the joints without pain or difficulty, no signs for acute trauma. NEUROLOGIC: Oriented x 3, no acute motor or sensory deficits, no focal weakness. SKIN: Pale, no rash, no jaundice, no diaphoresis. Medical Decision & Procedures ER Provider Diagnostic Interpretation: Radiology results as stated below per my review and radiologist interpretation: (CHEST FOR PE) ANGIO WITH CT DOSE: 397.91 mGycm HISTORY: Chest pain. Dyspnea. TECHNIQUE: Multiaxial CT images of the chest were performed following the intravenous administration of contrast to evaluate the pulmonary arteries. Maximal intensity projection images were also obtained. A dose lowering technique was utilized adhering to the principles of ALARA. COMPARISON STUDY: 02/17/2017 FINDINGS: The thoracic aorta is unremarkable in appearance. 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 There are findings of a chronic occlusive changes of several vertebral vessels of the right base. These are all chronic findings. There is no evidence for an acute pulmonary embolus. Diffuse pleural and parenchymal densities are identified bilaterally. These are stable. Patient has developed small bilateral pleural effusions. There are findings of right lower lobe and to a lesser extent left base parenchymal infiltrative changes. Pulmonary vasculature is somewhat prominent. IMPRESSION: 1. No evidence for an acute pulmonary embolus. 2. 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 3. Unchanging parenchymal densities throughout both hemithoraces which have been described previously 4. New or interval parenchymal infiltrates of the right lower lobe and to a minimal extent left base. 5. Stable marked splenomegaly The above report was generated using voice recognition software. It may contain grammatical, syntax or spelling errors. Electronically signed by: Kevin Dobbs M.D. 01/05/2018 2:02 PM Dictated Date/Time: 01/05/2018 1:53 PM CHEST ONE VIEW PORTABLE CLINICAL HISTORY: EVALUATE RESPIRATORY DISTRESS.DYSPNEA dyspnea COMPARISON STUDY: 11/28/2016 FINDINGS: Findings of mildly progressive right hemithoracic infiltrative change. Minimal parenchymal infiltrative change left base. Mild cardiomegaly. Diaphragms are smooth. IMPRESSION: Mildly progressive diffuse parenchymal infiltrate right hemithorax and left base. Mild cardiomegaly. The above report was generated using voice recognition software. It may contain grammatical, syntax or spelling errors. Electronically signed by: Kevin Dobbs M.D. 01/05/2018 12:38 PM Dictated Date/Time: 01/05/2018 12:37 PM Laboratory Results 01/05/18 11:53 Red Blood Count 3.76, Mean Corpuscular Volume 85.6, Mean Corpuscular Hemoglobin 27.7, Mean Corpuscular Hemoglobin Concent 32.3 01/05/18 11:53 Test 01/05/18 11:53 01/05/18 13:48 01/05/18 13:58 White Blood Count 4.70 K/uL (4.8-10.8) Red Blood Count 3.76 M/uL (4.2-5.4) Hemoglobin 10.4 g/dL (12.0-16.0) Hematocrit 32.2 % (37-47) Mean Corpuscular Volume 85.6 fL (80-100) Mean Corpuscular Hemoglobin 27.7 pg (25-34) Mean Corpuscular Hemoglobin Concent 32.3 g/dl (32-36) Platelet Count 82 K/uL (130-400) RDW Standard Deviation 56.4 fL (36.4-46.3) RDW Coefficient of Variation 18.6 % (11.5-14.5) Nucleated RBC Absolute Count (auto) 0.83 K/uL (0-0) Neutrophils % (Manual) 72.5 % Lymphocytes % (Manual) 12.4 % Monocytes % (Manual) 1.8 % Eosinophils % (Manual) 1.8 % Basophils % (Manual) 3.5 % Metamyelocytes % 2.7 % Myelocytes % 4.4 % Blast Cells % 0.9 % Nucleated Red Blood Cells % 17.7 % Neutrophils # (Manual) 3.41 K/uL (1.4-6.5) Total Absolute Neutrophils 3.41 K/uL (1.4-6.5) Lymphocytes # (Manual) 0.58 K/uL (1.2-3.4) Total Absolute Lymphocytes 0.58 K/uL (1.2-3.4) Monocytes # (Manual) 0.08 K/uL (0.11-0.59) Eosinophils # (Manual) 0.08 K/uL (0-0.5) Basophils # (Manual) 0.16 K/uL (0-0.2) Metamyelocytes # 0.13 K/uL (0-0) Myelocytes # 0.21 K/uL (0-0) Blast Cells # 0.04 K/uL (0-0) Toxic Granulation 1+ Dohle Bodies 1+ Platelet Estimate DECREASED Tear Drop Cells 2+ Prothrombin Time 33.7 SECONDS (9.0-12.0) Prothromb Time International Ratio 3.3 (0.9-1.1) Activated Partial Thromboplast Time 43.9 SECONDS (21.0-31.0) Partial Thromboplastin Ratio 1.7 Anion Gap 4.0 mmol/L (3-11) Est Creatinine Clear Calc Drug Dose 58.5 ml/min Estimated GFR () 71.8 Estimated GFR (Non- 61.9 BUN/Creatinine Ratio 11.0 (10-20) Calcium Level 8.5 mg/dl (8.5-10.1) Magnesium Level 1.8 mg/dl (1.8-2.4) Total Bilirubin 2.6 mg/dl (0.2-1) Aspartate Amino Transf (AST/SGOT) 43 U/L (15-37) Alanine Aminotransferase (ALT/SGPT) 32 U/L (12-78) Alkaline Phosphatase 213 U/L (45-117) Troponin I < 0.015 ng/ml (0-0.045) Total Protein 7.0 gm/dl (6.4-8.2) Albumin 3.3 gm/dl (3.4-5.0) Globulin 3.7 gm/dl (2.5-4.0) Albumin/Globulin Ratio 0.9 (0.9-2) Urine Color ORANGE Urine Appearance CLEAR (CLEAR) Urine pH 5.0 (4.5-7.5) Urine Specific Henry 1.032 (1.000-1.030) Urine Protein 1+ (NEG) Urine Glucose (UA) NEG (NEG) Urine Ketones NEG (NEG) Urine Occult Blood TRACE (NEG) Urine Nitrite POS (NEG) Urine Bilirubin NEG (NEG) Urine Urobilinogen NEG (NEG) Urine Leukocyte Esterase TRACE (NEG) Urine WBC (Auto) 1-5 /hpf (0-5) Urine RBC (Auto) 0-4 /hpf (0-4) Urine Hyaline Casts (Auto) 5-10 /lpf (0-5) Urine Epithelial Cells (Auto) 20-30 /lpf (0-5) Urine Bacteria (Auto) NEG (NEG) Bedside Troponin I < 0.030 ng/ml (0-0.045) Date/Time Source Procedure Growth Status 01/05/18 13:48 Stool C.difficile Toxin B Gene (PCR) - Final No C. difficile toxin B gene detected Complete Laboratory results reviewed by me. Medications Administered Medications (Trade) Dose Ordered Sig/Keith Route Start Time Stop Time Status Last Admin Dose Admin Piperacillin Sod/ Tazobactam Sod (Zosyn Iv) 4.5 gm NOW STAT IV 01/05/18 14:08 01/05/18 14:09 DC 01/05/18 14:48 4.5 GM Citalopram Hydrobromide (celeXA TAB) 30 mg QPM PO 01/05/18 21:00 02/04/18 20:59 01/05/18 16:46 30 MG ECG Per My Interpretation Indication: SOB/dyspnea Rate (beats per minute): 81 Rhythm: normal sinus Findings: ST depression (Anterior and lateral), T-wave inversion (Anterior and lateral), other (subtle similar changes in inferior leads) Comparison ECG Date: 02/19/17 Change: no significant change ED Course 1218: The patient was evaluated in room C11B. A complete history and physical exam was performed. 1408: Zosyn 4.5 gm IV 1435: I spoke with Dr. Campuzano. We discussed the patient's case. The patient will be evaluated by the [facility] for further management. 1438: I reassessed the patient at this time. She is resting comfortably. I discussed the results and treatment plan with the patient. I answered all pertaining questions that she had. She expressed understanding and verbalized agreement. Medical Decision Differential diagnoses includes anemia, PE, cardiac ischemia, electrolyte imbalance, primary pulmonary disease, PNA, CHF. The patient has a low white count, hemoglobin and platelet count-this is baseline for her with her underlying disease. No significant electrolyte abnormality or kidney failure. There were a few subtle liver enzyme elevations. INR was just over 3, this is consistent with her Coumadin use. Urinalysis shows infection versus contamination, urine culture is pending. Blood cultures are pending. EKG shows a normal sinus rhythm with some changes to the T waves however, these have been documented before. Cardiac enzyme testing 2 does not suggest acute cardiac injury. Chest x-ray does show some patchy infiltrate on the right, no pneumothorax. Chest CT shows increasing parenchymal infiltrate on the right, no evidence for acute PE. During the patient's stay, she had diarrhea, this was sent for cultures. A stool C. difficile was negative. Apparently, the patient has been having diarrhea for a few days. The patient received IV Zosyn as antibiotic coverage. The patient requires a hospital stay. She has increasing dyspnea despite outpatient treatment. She has increasing changes on chest x-ray and CT. I did speak with the patient and case management. The on-call hospitalist was consulted. Medication Reconcilliation Current Medication List: was personally reviewed by me Blood Pressure Screening Patient's blood pressure: Elevated blood pressure Blood pressure disposition: Referred to PCP Consults Time Called: 1431 Consulting Physician: Dr. Campuzano Returned Call: [phone] Campuzano. We discussed the patient's case. The patient will be evaluated by the [facility] for further management. Impression Primary Impression: Shortness of breath Additional Impressions: Failure of outpatient treatment Lung infiltrate Scribe Attestation The scribe's documentation has been prepared under my direction and personally reviewed by me in its entirety. I confirm that the note above accurately reflects all work, treatment, procedures, and medical decision making performed by me. Departure Information Dispostion Being Evaluated By Hospitalist Referrals Shira Yarbrough MD (PCP) Patient Instructions My [facility] Problem Qualifiers
[2018-01-05 12:42] LABS: INR 3.3 (0.9-1.1); PTT PATIENT 43.9 SECONDS (21.0-31.0)
[2018-01-05 12:43] LABS: ALBUMIN 3.3 gm/dl (3.4-5.0); ALT/SGPT 32 U/L (12-78); AST/SGOT 43 U/L (15-37); BLOOD UREA NITROGEN 11 mg/dl (7-18); CALCIUM 8.5 mg/dl (8.5-10.1); CARBON DIOXIDE 26 mmol/L (21-32); CREATININE 0.99 mg/dl (0.60-1.20); GLUCOSE 98 mg/dl (70-99); POTASSIUM 3.4 mmol/L (3.5-5.1); SODIUM 140 mmol/L (136-145)
[2018-01-05 12:45] LABS: HEMATOCRIT 32.2 % (37-47); HEMOGLOBIN 10.4 g/dL (12.0-16.0); MEAN CELL VOLUME 85.6 fL (80-100); MEAN CORPUSCULAR HEMOGLOBIN 27.7 pg (25-34); RED CELL DISTRIBUTION WIDTH CV 18.6 % (11.5-14.5); RED CELL DISTRIBUTION WIDTH SD 56.4 fL (36.4-46.3)
[2018-01-05] MEDS ORDERED: OPTIRAY 320 IV PRN (12:45)
[2018-01-05 12:49] LABS: ALKALINE PHOSPHATASE 213 U/L (45-117)
[2018-01-05 13:02] LABS: PLATELET COUNT 82 K/uL (130-400)
[2018-01-05 13:04] LABS: NUCLEATED RED BLOOD CELL ABS 0.83 K/uL (0-0)
--- NOTE | 2018-01-05 14:04 | DIAGNOSTIC IMAGING REPORT ---
(CHEST FOR PE) ANGIO WITH CT DOSE: 397.91 mGycm HISTORY: Chest pain. Dyspnea. TECHNIQUE: Multiaxial CT images of the chest were performed following the intravenous administration of contrast to evaluate the pulmonary arteries. Maximal intensity projection images were also obtained. A dose lowering technique was utilized adhering to the principles of ALARA. COMPARISON STUDY: 02/17/2017 FINDINGS: The thoracic aorta is unremarkable in appearance. 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 There are findings of a chronic occlusive changes of several vertebral vessels of the right base. These are all chronic findings. There is no evidence for an acute pulmonary embolus. Diffuse pleural and parenchymal densities are identified bilaterally. These are stable. Patient has developed small bilateral pleural effusions. There are findings of right lower lobe and to a lesser extent left base parenchymal infiltrative changes. Pulmonary vasculature is somewhat prominent. IMPRESSION: 1. No evidence for an acute pulmonary embolus. 2. 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 3. Unchanging parenchymal densities throughout both hemithoraces which have been described previously 4. New or interval parenchymal infiltrates of the right lower lobe and to a minimal extent left base. 5. Stable marked splenomegaly The above report was generated using voice recognition software. It may contain grammatical, syntax or spelling errors. Electronically signed by: Kevin Dobbs M.D. 01/05/2018 2:02 PM Dictated Date/Time: 01/05/2018 1:53 PM
[2018-01-05] MEDS ORDERED: PIPERACILLIN/TAZOBACTAM 4.5 GM/100ML D5W IV STA (14:08)
[2018-01-05] MEDS ORDERED: MAGNESIUM HYDROXIDE SUSP 30 ML UDC PO PRN (15:45)
[2018-01-05] MEDS ORDERED: ACETAMINOPHEN 325 MG TAB PO PRN (15:45)
[2018-01-05] MEDS ORDERED: ONDANSETRON INJ 2 MG/ML 2 ML VIAL IV PRN (15:45)
--- NOTE | 2018-01-05 16:01 | History and Physical ---
History & Physical Date & Time of Service: Jan 05, 2018 at 15:39 Chief Complaint: Can't Breath,Legs Hurt,Recent Transfusion Primary Care Physician: Shira Yarbrough MD History of Present Illness Source: patient 62 y/o F c/o SOB and diarrhea. Pt states she has been SOB and with diarrhea for 3-4 weeks. It is getting worse. She states that she was seen by Dr. Vergara, who she follows with for MDS, about 2 weeks ago. She was found to be anemia and received 2 units of PRBC, 1 unit of platelets, and 2 units of IVF. She did not feel better after these interventions. She has been on Jakafi since 2014 for MDS. Due to the thrombocytopenia, this was stopped about 2 weeks ago. Her breathing has gotten worse. She is constantly nauseated and eating only 7up and toast due to this. She does not have emesis, but states that she has diarrhea almost immediately after she eats. No abd pain or cramping. She has had 7 bowel movements already today and this is not atypical. She has SOB at all times. She is not on home O2 and has no hx of SOB. She was getting back in bed after using the restroom and has been SOB since that time. Pt takes coumadin for hx of PE. Her dose was lowered about 1 week ago for elevated INR. She is now on 2.5mg QD. Pt notes that she has a hx of esophageal varices and non-alcoholic liver steatosis. She was seen by Dr. Blank last year for hepatomegaly and splenomegaly. Pt states that she feels like she has gained weight in her abd only. She states that today she attempted to put on a pair of pants that she worse two weeks ago but could not get them buttoned. She has no LE swelling. Pt denies fever, chest pain, LE pain. Past Medical/Surgical History Medical Problems: (1) Adhesive Capsulitis Of Left Shoulder (2) Anemia (3) Chest pain (4) Diaphragmatic Hernia (5) Diverticulosis Colon (W/O Ment Of Hemorrhage) (6) GI bleed (7) GI bleed (8) Hyperlipidemia Nec/Nos (9) Iron Deficiency Anemia Secondary To Blood Loss (Chronic) (10) Leg pain, right (11) Major Depressive Disorder, Single Episode, Unspecified (12) Muscle strain of right lower leg (13) Myelodysplastic disease (14) Myelodysplastic Syndrome, Unspecified (15) Myelofibrosis (16) Oth Pulmon Embolism/Infarct (17) Pneumonia (18) Portal Hypertension (19) Reflux Esophagitis (20) Splenomegaly (21) Splenomegaly (22) Splenomegaly (23) Upper GI bleed (24) Vitamin D Deficiency Nos Surgical Problems: (1) Tubal Ligation Status Family History Family history was reviewed; no changes noted. Social History Smoking Status: Never Smoker Alcohol Use: none Drug Use: none Marital Status: Housing status: lives with family Occupational Status: retired Immunizations History of Influenza Vaccine: Yes History of Tetanus Vaccine?: Yes History of Pneumococcal: Yes History of Hepatitis B Vaccine: No Allergies Coded Allergies: No Known Allergies (Verified , 12/23/17) Home Medications Scheduled Cholecalciferol (Vitamin D), 2,000 UNIT PO QPM Citalopram Hydrobromide (Citalopram Hydrobromide), 30 MG PO QPM Pantoprazole (Protonix), 40 MG PO BID Propranolol (Inderal), 10 MG PO TID Warfarin Sod (Jantoven), 2.5 MG PO DAILY Review of Systems Pertinent positives and negatives reviewed in HPI--all others negative Physical Exam Vital Signs Date Time Temp Pulse Resp B/P (MAP) Pulse Ox O2 Delivery O2 Flow Rate FiO2 01/05/18 15:07 147/ 01/05/18 13:11 79 28 89 01/05/18 13:06 78 17 92 01/05/18 12:54 Room Air 01/05/18 12:40 97 Room Air 01/05/18 12:36 79 20 96 01/05/18 12:31 139/76 01/05/18 12:30 80 01/05/18 12:24 78 94 01/05/18 12:01 139/74 01/05/18 11:54 79 17 01/05/18 11:43 169/92 01/05/18 11:34 64 20 144/83 97 Room Air General Appearance: WD/WN, + mild distress (SOB) Head: normocephalic, atraumatic Eyes: normal inspection, sclerae normal Respiratory/Chest: lungs clear, + respiratory distress (SOB s/p ambulation and ongoing with conversation) Cardiovascular: regular rate, rhythm, normal peripheral pulses Abdomen/GI: non tender, soft, + distended Extremities/Musculoskelatal: no calf tenderness, no pedal edema Neurologic/Psych: alert, normal mood/affect, oriented x 3 Skin: normal color, warm/dry Diagnostics Laboratory Results Results Past 24 Hours Test 01/05/18 11:53 01/05/18 12:42 01/05/18 13:48 01/05/18 13:58 Range/Units White Blood Count 4.70 4.8-10.8 K/uL Red Blood Count 3.76 4.2-5.4 M/uL Hemoglobin 10.4 12.0-16.0 g/dL Hematocrit 32.2 37-47 % Mean Corpuscular Volume 85.6 80-100 fL Mean Corpuscular Hemoglobin 27.7 25-34 pg Mean Corpuscular Hemoglobin Concent 32.3 32-36 g/dl Platelet Count 82 130-400 K/uL RDW Standard Deviation 56.4 36.4-46.3 fL RDW Coefficient of Variation 18.6 11.5-14.5 % Nucleated RBC Absolute Count (auto) 0.83 0-0 K/uL Neutrophils % (Manual) 72.5 % Lymphocytes % (Manual) 12.4 % Monocytes % (Manual) 1.8 % Eosinophils % (Manual) 1.8 % Basophils % (Manual) 3.5 % Metamyelocytes % 2.7 % Myelocytes % 4.4 % Blast Cells % 0.9 % Nucleated Red Blood Cells % 17.7 % Neutrophils # (Manual) 3.41 1.4-6.5 K/uL Total Absolute Neutrophils 3.41 1.4-6.5 K/uL Lymphocytes # (Manual) 0.58 1.2-3.4 K/uL Total Absolute Lymphocytes 0.58 1.2-3.4 K/uL Monocytes # (Manual) 0.08 0.11-0.59 K/uL Eosinophils # (Manual) 0.08 0-0.5 K/uL Basophils # (Manual) 0.16 0-0.2 K/uL Metamyelocytes # 0.13 0-0 K/uL Myelocytes # 0.21 0-0 K/uL Blast Cells # 0.04 0-0 K/uL Toxic Granulation 1+ Dohle Bodies 1+ Platelet Estimate DECREASED Tear Drop Cells 2+ Prothrombin Time 33.7 9.0-12.0 SECONDS Prothromb Time International Ratio 3.3 0.9-1.1 Activated Partial Thromboplast Time 43.9 21.0-31.0 SECONDS Partial Thromboplastin Ratio 1.7 Sodium Level 140 136-145 mmol/L Potassium Level 3.4 3.5-5.1 mmol/L Chloride Level 110 98-107 mmol/L Carbon Dioxide Level 26 21-32 mmol/L Anion Gap 4.0 3-11 mmol/L Blood Urea Nitrogen 11 7-18 mg/dl Creatinine 0.99 0.60-1.20 mg/dl Est Creatinine Clear Calc Drug Dose 58.5 ml/min Estimated GFR () 71.8 Estimated GFR (Non- 61.9 BUN/Creatinine Ratio 11.0 10-20 Random Glucose 98 70-99 mg/dl Calcium Level 8.5 8.5-10.1 mg/dl Magnesium Level 1.8 1.8-2.4 mg/dl Total Bilirubin 2.6 0.2-1 mg/dl Aspartate Amino Transf (AST/SGOT) 43 15-37 U/L Alanine Aminotransferase (ALT/SGPT) 32 12-78 U/L Alkaline Phosphatase 213 45-117 U/L Troponin I < 0.015 0-0.045 ng/ml Total Protein 7.0 6.4-8.2 gm/dl Albumin 3.3 3.4-5.0 gm/dl Globulin 3.7 2.5-4.0 gm/dl Albumin/Globulin Ratio 0.9 0.9-2 Bedside Troponin I < 0.030 < 0.030 0-0.045 ng/ml Urine Color ORANGE Urine Appearance CLEAR CLEAR Urine pH 5.0 4.5-7.5 Urine Specific Roberts 1.032 1.000-1.030 Urine Protein 1+ NEG Urine Glucose (UA) NEG NEG Urine Ketones NEG NEG Urine Occult Blood TRACE NEG Urine Nitrite POS NEG Urine Bilirubin NEG NEG Urine Urobilinogen NEG NEG Urine Leukocyte Esterase TRACE NEG Urine WBC (Auto) 1-5 0-5 /hpf Urine RBC (Auto) 0-4 0-4 /hpf Urine Hyaline Casts (Auto) 5-10 0-5 /lpf Urine Epithelial Cells (Auto) 20-30 0-5 /lpf Urine Bacteria (Auto) NEG NEG Microbiology Results 01/05/18 Blood Culture, Received Pending 01/05/18 Blood Culture, Received Pending 01/05/18 C.difficile Toxin B Gene (PCR) - Final, Complete No C. difficile toxin B gene detected 01/05/18 Shiga Toxin Test, Received Pending 01/05/18 Stool Culture, Received Pending Diagnostic Radiology CXR: possible R sided PNA CTA: neg for PE, likely R sided and possible L sided PNA Impression Assessment and Plan 62 y/o F who was admitted on 01/05 for SOB SOB: hypoxic on RA and with ambulation or prolonged conversation Likely related to PNA noted on CTA Neg for PE, which is unlikely in the setting of therapeutic coumadin dosing Jakafi was recently d/c'd without taper due to thrombocytopenia requiring transfusion and this could lead to SOB as well. Pt was SOB prior to d/c of medication, however it did worsen. Continue to monitor Started on zosyn in the ED, will continue with ceftriaxone and azithromycin WBC low and afebrile in the setting of immunosuppression Blood cx pending UTI: UA +, cx pending Abx above will cover Abd distention: Increased LFTs, monitor Abd US pending Pt with hx of non-alcoholic steatosis and hepatomegaly Has seen Dr. Blank in the past MDS: recent transfusion CBC stable, monitor Follows with Dr. Vergara if needed Jakafi stopped 2 weeks ago due to thrombocytopenia requiring transfusion Hx of PE: on coumadin 2.5mg QD INR 3.3, will hold today and should be resumed tomorrow Other: Requests DNR/DNI Reg diet as tolerated SCDs and supratherapeutic on coumadin for DVT proph Resuscitation Status VTE Prophylaxis Will order VTE Prophylaxis: Yes
[2018-01-05] MEDS: CITALOPRAM 20 MG TAB PO SCH (16:46)
[2018-01-05 17:03] VITALS: BP 148/83; PULSE 83; TEMP 36.9; O2SAT 92
[2018-01-05] MEDS ORDERED: POTASSIUM CHLR 10 MEQ / WTR 10 MEQ in PREMIXED WATER 100 ML IV SCH (17:30)
[2018-01-05] MEDS: CEFTRIAXONE SOD INJ 1 GM in DEXTROSE 5% ADD-VANTAGE 50ML 50 ML IV SCH (17:43)
[2018-01-05 18:00] VITALS: BP 148/83; PULSE 83; TEMP 36.9; O2SAT 92; Ht 162.6 cm; Wt 70.3 kg
[2018-01-05] MEDS ORDERED: POTASSIUM CHLORIDE 20 MEQ TABCR PO STA (19:16)
[2018-01-05 19:20] VITALS: BP 132/70; PULSE 81; TEMP 36.8; O2SAT 93
[2018-01-05 20:03] VITALS: O2SAT 93
[2018-01-05] MEDS: AZITHROMYCIN IV 500 MG in DEXTROSE 5% 250ML 250 ML IV SCH (20:08)
[2018-01-05 20:47] VITALS: BP 136/75; PULSE 87; O2SAT 94
[2018-01-05] MEDS: PANTOprazole SOD 40 MG TAB PO SCH (20:49)
[2018-01-05] MEDS: PROPRANOLOL HCL 10 MG TAB PO SCH (20:49)
[2018-01-05] MEDS: CHOLECALCIFEROL 1000 INTER.UNIT TAB PO SCH (20:50)
[2018-01-05 23:24] VITALS: BP 120/68; PULSE 78; TEMP 37.4; O2SAT 95
[2018-01-06] VITALS (7 sets, daily range): BP systolic 114–133; BP diastolic 62–80; PULSE 66–86; TEMP 36.3–37.2; O2SAT 91–96
[2018-01-06 05:10] LABS: HEMATOCRIT 28.7 % (37-47); MEAN CELL VOLUME 84.9 fL (80-100); MEAN CORPUSCULAR HEMOGLOBIN 26.6 pg (25-34); MEAN CORPUSCULAR HGB CONC 31.4 g/dl (32-36); NUCLEATED RED BLOOD CELL ABS 0.29 K/uL (0-0); RED CELL DISTRIBUTION WIDTH SD 55.4 fL (36.4-46.3); WHITE BLOOD COUNT 3.69 K/uL (4.8-10.8)
[2018-01-06 05:11] LABS: MEAN PLATELET VOLUME 10.3 fL (7.4-10.4); PLATELET COUNT 73 K/uL (130-400)
[2018-01-06 05:27] LABS: INR 4.2 (0.9-1.1)
[2018-01-06 05:35] LABS: ALBUMIN 2.8 gm/dl (3.4-5.0); CALCIUM 8.2 mg/dl (8.5-10.1); CREATININE 0.91 mg/dl (0.60-1.20); POTASSIUM 3.4 mmol/L (3.5-5.1)
[2018-01-06 05:49] LABS: TOTAL PROTEIN 6.3 gm/dl (6.4-8.2)
--- NOTE | 2018-01-06 06:56 | DIAGNOSTIC IMAGING REPORT ---
ABDOMEN COMPLETE (US) HISTORY: Pain pain. COMPARISON: None. FINDINGS: Pancreas: The pancreas demonstrates a normal echotexture. Liver: Unremarkable. Gallbladder: Somewhat thickened gallbladder wall at 3 mm. No significant pericholecystic fluid. Considerable layering sludge and gravel. CBD: 4 mm Kidneys: Mild age-related cortical scarring. No evidence for hydronephrosis. Spleen: Markedly enlarged with a maximum dimension of 22 cm. Trace perisplenic fluid Aorta: Normal in caliber. IVC: Patent. IMPRESSION: 1. Marked splenomegaly. 2. Trace perisplenic free fluid. 3. Combination of sludge and gravel within the gallbladder lumen. 4. Slight thickening and subtle irregularity of the gallbladder wall. 5. Normal caliber bile ducts. The above report was generated using voice recognition software. It may contain grammatical, syntax or spelling errors. Electronically signed by: Kevin Dobbs M.D. 01/06/2018 6:54 AM Dictated Date/Time: 01/06/2018 6:51 AM
[2018-01-06] MEDS: PROPRANOLOL HCL 10 MG TAB PO SCH ×3 (07:49→20:39)
[2018-01-06] MEDS: PANTOprazole SOD 40 MG TAB PO SCH ×2 (07:49→20:39)
[2018-01-06] MEDS ORDERED: POTASSIUM CHLORIDE 20 MEQ TABCR PO ONE (08:30)
--- NOTE | 2018-01-06 10:14 | Hospitalist Progress Note ---
Hospitalist Progress Note Date of Service Jan 06, 2018. (Mona Barksdale .NOBLE) Subjective Pt evaluation today including: conversation w/ patient, conversation w/ family , physical exam, chart review, lab review, review of inpatient medication list Voiding: no voiding problems Ms. Roy continues to have watery diarrhea with 10 bms last night that were yellow in color. She has not had any changes in her urine. She continues to be sob and require 2L NC, very mild dry cough. She has not been able to eat much for three weeks and can drink a little due to nausea. She does not have any chest pain or abd pain ROS Constitutional: no chills, aches, sweats or fever Respiratory: see HPI Cardiac: no chest pain, palpitations, edema, orthopnea or lightheadedness GI:see HPI : no dysuria or hesitancy Extremities: no joint pain or weakness Skin: no rash All other systems reviewed and negative (Mona Barksdale .NOBLE) Medications Medications Administered Medications (Trade) Dose Ordered Sig/Keith Route Start Time Stop Time Status Last Admin Dose Admin Piperacillin Sod/ Tazobactam Sod (Zosyn Iv) 4.5 gm NOW STAT IV 01/05/18 14:08 01/05/18 14:09 DC 01/05/18 14:48 4.5 GM Acetaminophen (Tylenol Tab) 650 mg Q4H PRN PO 01/05/18 15:45 02/04/18 15:44 01/06/18 09:05 650 MG Ceftriaxone Sodium 1 gm/ Dextrose 50 ml @ 100 mls/hr Q24H IV 01/05/18 18:00 01/12/18 15:44 01/05/18 17:43 100 MLS/HR Azithromycin 500 mg/Dextrose 255 ml @ 250 mls/hr Q24H IV 01/05/18 18:00 01/10/18 15:44 01/05/18 20:08 250 MLS/HR Citalopram Hydrobromide (celeXA TAB) 30 mg QPM PO 01/05/18 21:00 02/04/18 20:59 01/05/18 16:46 30 MG Pantoprazole Sodium (Protonix Tab) 40 mg BID PO 01/05/18 21:00 02/04/18 20:59 01/06/18 07:49 40 MG Propranolol HCl (Inderal Tab) 10 mg TID PO 01/05/18 21:00 18 20:59 18 07:49 10 MG Cholecalciferol (Vitamin D Tab) 2,000 inter.unit QPM PO 01/05/18 21:00 18 20:59 01/05/18 20:50 2,000 INTER.UNIT Potassium Chloride 10 meq/ Prmx 100 ml @ 100 mls/hr Q1H IV 01/05/18 17:30 01/05/18 19:17 DC 01/05/18 18:22 100 MLS/HR Potassium Chloride (Klor-Con Tab) 40 meq NOW STAT PO 01/05/18 19:16 01/05/18 19:20 DC 01/05/18 19:31 40 MEQ Potassium Chloride (Klor-Con Tab) 20 meq NOW ONCE PO 01/06/18 08:30 01/06/18 08:33 DC 01/06/18 09:05 20 MEQ (Mona Barksdale, TECHNICAL LEAD) Objective Vital Signs Date Time Temp Pulse Resp B/P (MAP) Pulse Ox O2 Delivery O2 Flow Rate FiO2 01/06/18 08:00 Nasal Cannula 2.0 01/06/18 07:25 36.9 86 20 123/67 (85) 94 Nasal Cannula 2.0 01/06/18 04:06 37.2 66 16 127/74 (91) 95 Nasal Cannula 2.0 01/06/18 04:00 Nasal Cannula 2.0 01/06/18 00:00 Nasal Cannula 2.0 01/05/18 23:24 37.4 78 16 120/68 (85) 95 Nasal Cannula 2.0 01/05/18 20:47 87 136/75 (95) 94 Nasal Cannula 4.0 01/05/18 20:03 93 Nasal Cannula 2.0 01/05/18 19:20 36.8 81 20 132/70 (90) 93 01/05/18 18:00 36.9 83 18 148/83 92 Nasal Cannula 2.0 83 01/05/18 17:03 36.9 83 18 148/83 (104) 92 Nasal Cannula 2.0 01/05/18 16:44 79 16 179/96 94 01/05/18 15:07 147/ 4/17/18 13:11 79 28 89 01/05/18 13:06 78 17 92 01/05/18 12:54 Room Air 01/05/18 12:40 97 Room Air 01/05/18 12:36 79 20 96 01/05/18 12:31 139/76 01/05/18 12:30 80 01/05/18 12:24 78 94 01/05/18 12:01 139/74 01/05/18 11:54 79 17 01/05/18 11:43 169/92 01/05/18 11:34 64 20 144/83 97 Room Air (Mona Barksdale CRNP) Physical Exam Notes: General: no distress Eyes: normal inspection, PERLL Respiratory: chest non tender, clear to auscultation, normal breath sounds, no respiratory distress, no accessory muscle use Cardiac: regular rate and rhythm, no rub or gallop, no murmur, no edema, no jvd GI/: active bowel sounds, no abd pain or tenderness, soft, distended Extremities: normal range of motion, normal strength, non tender Neuro/Psych: alert and oriented x 3, normal mood and affect Skin: normal color, dry (Mona Barksdale CRNP) Laboratory Results Last 24 Hours Test 01/05/18 11:53 01/05/18 12:42 01/05/18 13:48 01/05/18 13:58 White Blood Count 4.70 K/uL Red Blood Count 3.76 M/uL Hemoglobin 10.4 g/dL Hematocrit 32.2 % Mean Corpuscular Volume 85.6 fL Mean Corpuscular Hemoglobin 27.7 pg Mean Corpuscular Hemoglobin Concent 32.3 g/dl Platelet Count 82 K/uL RDW Standard Deviation 56.4 fL RDW Coefficient of Variation 18.6 % Nucleated RBC Absolute Count (auto) 0.83 K/uL Neutrophils % (Manual) 72.5 % Lymphocytes % (Manual) 12.4 % Monocytes % (Manual) 1.8 % Eosinophils % (Manual) 1.8 % Basophils % (Manual) 3.5 % Metamyelocytes % 2.7 % Myelocytes % 4.4 % Blast Cells % 0.9 % Nucleated Red Blood Cells % 17.7 % Neutrophils # (Manual) 3.41 K/uL Total Absolute Neutrophils 3.41 K/uL Lymphocytes # (Manual) 0.58 K/uL Total Absolute Lymphocytes 0.58 K/uL Monocytes # (Manual) 0.08 K/uL Eosinophils # (Manual) 0.08 K/uL Basophils # (Manual) 0.16 K/uL Metamyelocytes # 0.13 K/uL Myelocytes # 0.21 K/uL Blast Cells # 0.04 K/uL Toxic Granulation 1+ Dohle Bodies 1+ Platelet Estimate DECREASED Tear Drop Cells 2+ Prothrombin Time 33.7 SECONDS Prothromb Time International Ratio 3.3 Activated Partial Thromboplast Time 43.9 SECONDS Partial Thromboplastin Ratio 1.7 Sodium Level 140 mmol/L Potassium Level 3.4 mmol/L Chloride Level 110 mmol/L Carbon Dioxide Level 26 mmol/L Anion Gap 4.0 mmol/L Blood Urea Nitrogen 11 mg/dl Creatinine 0.99 mg/dl Est Creatinine Clear Calc Drug Dose 58.5 ml/min Estimated GFR () 71.8 Estimated GFR (Non- 61.9 BUN/Creatinine Ratio 11.0 Random Glucose 98 mg/dl Calcium Level 8.5 mg/dl Magnesium Level 1.8 mg/dl Total Bilirubin 2.6 mg/dl Aspartate Amino Transf (AST/SGOT) 43 U/L Alanine Aminotransferase (ALT/SGPT) 32 U/L Alkaline Phosphatase 213 U/L Troponin I < 0.015 ng/ml Total Protein 7.0 gm/dl Albumin 3.3 gm/dl Globulin 3.7 gm/dl Albumin/Globulin Ratio 0.9 Bedside Troponin I < 0.030 ng/ml < 0.030 ng/ml Urine Color ORANGE Urine Appearance CLEAR Urine pH 5.0 Urine Specific [place] 1.032 Urine Protein 1+ Urine Glucose (UA) NEG Urine Ketones NEG Urine Occult Blood TRACE Urine Nitrite POS Urine Bilirubin NEG Urine Urobilinogen NEG Urine Leukocyte Esterase TRACE Urine WBC (Auto) 1-5 /hpf Urine RBC (Auto) 0-4 /hpf Urine Hyaline Casts (Auto) 5-10 /lpf Urine Epithelial Cells (Auto) 20-30 /lpf Urine Bacteria (Auto) NEG Test 01/06/18 05:02 White Blood Count 3.69 K/uL Red Blood Count 3.38 M/uL Hemoglobin 9.0 g/dL Hematocrit 28.7 % Mean Corpuscular Volume 84.9 fL Mean Corpuscular Hemoglobin 26.6 pg Mean Corpuscular Hemoglobin Concent 31.4 g/dl RDW Standard Deviation 55.4 fL RDW Coefficient of Variation 18.0 % Platelet Count 73 K/uL Mean Platelet Volume 10.3 fL Nucleated RBC Absolute Count (auto) 0.29 K/uL Nucleated Red Blood Cells % 7.7 % Prothrombin Time 42.8 SECONDS Prothromb Time International Ratio 4.2 Sodium Level 137 mmol/L Potassium Level 3.4 mmol/L Chloride Level 109 mmol/L Carbon Dioxide Level 24 mmol/L Anion Gap 4.0 mmol/L Blood Urea Nitrogen 12 mg/dl Creatinine 0.91 mg/dl Est Creatinine Clear Calc Drug Dose 63.7 ml/min Estimated GFR () 79.5 Estimated GFR (Non- 68.6 BUN/Creatinine Ratio 13.0 Random Glucose 92 mg/dl Calcium Level 8.2 mg/dl Total Bilirubin 1.7 mg/dl Direct Bilirubin 0.6 mg/dl Aspartate Amino Transf (AST/SGOT) 31 U/L Alanine Aminotransferase (ALT/SGPT) 23 U/L Alkaline Phosphatase 160 U/L Total Protein 6.3 gm/dl Albumin 2.8 gm/dl (Mona Barksdale, NOBLE) Assessment and Plan Ms. Roy is a 62 year old woman here for pneumonia Hypoxic respiratory failure secondary to pneumonia - CTA showing diffuse pleural and parenchymal densities are identified bilaterally, small bilateral pleural effusions, right lower lobe and to a lesser extent left base parenchymal infiltrative changes; Neg for PE - Jakafi was recently d/c'd without taper due to thrombocytopenia requiring transfusion and this could lead to SOB as well. Pt was SOB prior to d/c of medication, however it did worsen. Continue to monitor - Continue with ceftriaxone and azithromycin - WBC low and afebrile in the setting of immunosuppression - Blood cx pending Diarrhea - C.diff negative - stool cultures pending - may need to consult GI depending on how patient responds to abx and how her liver function trends. UTI - UA +, culture pending, continue current antibiotic regimen for now Abd distention -LFTs initially increased but now trending back down - Abd US showed sludge in gallbladder but no ductal dilation - Pt with hx of non-alcoholic steatosis and hepatomegaly - has seen Dr. Blank in the past MDS - recently transfused with 2u PRBCs, 1u platelets - CBC stable, cbc am - Follows with Dr. Ursula - Jakafi stopped 2 weeks ago due to thrombocytopenia requiring transfusion Hx of PE, supratherapeutic INR: on coumadin 2.5mg QD - INR 3.3 on admission, 4.2 today despite having Coumadin held yesterday, will hold again today DNR DVT proph - coumadin currently held for supratherapeutic INR, SCDs (Mona Barksdale ., NOBLE) DIRECTOR OF EXTENSION WORK Physician Supervision Note: I interviewed and examined the patient. Discussed with Mona Barksdale DIRECTOR OF EXTENSION WORK and agree with findings and plan as documented in the note. Any exceptions or clarifications are listed here: None this pt is concerned that she has two pneumonias in the past year. she has cough that is non productive and sob vitals are stable lungs are coarse, cough during exam continue antibiotic treatment and her chronic anticoagulation Documented By: Gerardo Hernandez (Gerardo Hrenandez M.D.)
[2018-01-06] MEDS: CEFTRIAXONE SOD INJ 1 GM in DEXTROSE 5% ADD-VANTAGE 50ML 50 ML IV SCH (18:04)
[2018-01-06] MEDS: AZITHROMYCIN IV 500 MG in DEXTROSE 5% 250ML 250 ML IV SCH (18:25)
[2018-01-06] MEDS: CHOLECALCIFEROL 1000 INTER.UNIT TAB PO SCH (20:38)
[2018-01-06] MEDS: CITALOPRAM 20 MG TAB PO SCH (20:38)
[2018-01-07 04:21] VITALS: BP 123/73; PULSE 81; TEMP 36.4; O2SAT 93
[2018-01-07 05:52] LABS: MEAN CORPUSCULAR HGB CONC 31.3 g/dl (32-36); NUCLEATED RED BLOOD CELL ABS 0.26 K/uL (0-0)
[2018-01-07 06:05] LABS: INR 2.5 (0.9-1.1)
[2018-01-07 06:14] LABS: HEMATOCRIT 27.2 % (37-47); HEMOGLOBIN 8.5 g/dL (12.0-16.0); MEAN CORPUSCULAR HEMOGLOBIN 26.6 pg (25-34); RED CELL DISTRIBUTION WIDTH CV 18.2 % (11.5-14.5); RED CELL DISTRIBUTION WIDTH SD 56.4 fL (36.4-46.3); WHITE BLOOD COUNT 3.17 K/uL (4.8-10.8)
[2018-01-07 06:21] LABS: PLATELET COUNT 62 K/uL (130-400)
[2018-01-07 06:44] LABS: ALBUMIN 2.7 gm/dl (3.4-5.0); CALCIUM 8.4 mg/dl (8.5-10.1); CREATININE 0.88 mg/dl (0.60-1.20); POTASSIUM 3.6 mmol/L (3.5-5.1); TOTAL PROTEIN 6.3 gm/dl (6.4-8.2)
[2018-01-07 07:24] VITALS: BP 116/65; PULSE 73; TEMP 36.8; O2SAT 95
[2018-01-07] MEDS: PANTOprazole SOD 40 MG TAB PO SCH ×2 (08:05→20:39)
[2018-01-07] MEDS: PROPRANOLOL HCL 10 MG TAB PO SCH ×3 (08:05→20:38)
--- NOTE | 2018-01-07 09:25 | Hospitalist Progress Note ---
Hospitalist Progress Note Date of Service Jan 07, 2018. (Mona Barksdale ., NOBLE) Subjective Pt evaluation today including: conversation w/ patient, physical exam, chart review, lab review, review of inpatient medication list Voiding: no voiding problems Ms. Roy feels better today, her sob is improving though she did become dyspneic while washing up this morning. She is still requiring 2L NC. Her diarrhea has resolved. ROS Constitutional: no chills, aches, sweats or fever Respiratory: no cough, sputum, or wheezing Cardiac: no chest pain, palpitations, edema, orthopnea or lightheadedness GI: no abdominal pain, nausea, vomiting, diarrhea or constipation : no dysuria or hesitancy Extremities: no joint pain or weakness Skin: no rash All other systems reviewed and negative (Mona Barksdale CRNP) Medications Medications Administered Medications (Trade) Dose Ordered Sig/Keith Route Start Time Stop Time Status Last Admin Dose Admin Piperacillin Sod/ Tazobactam Sod (Zosyn Iv) 4.5 gm NOW STAT IV 01/05/18 14:08 01/05/18 14:09 DC 01/05/18 14:48 4.5 GM Acetaminophen (Tylenol Tab) 650 mg Q4H PRN PO 01/05/18 15:45 02/04/18 15:44 01/06/18 09:05 650 MG Ceftriaxone Sodium 1 gm/ Dextrose 50 ml @ 100 mls/hr Q24H IV 01/05/18 18:00 01/12/18 15:44 01/06/18 18:04 100 MLS/HR Azithromycin 500 mg/Dextrose 255 ml @ 250 mls/hr Q24H IV 01/05/18 18:00 01/10/18 15:44 01/06/18 18:25 250 MLS/HR Citalopram Hydrobromide (celeXA TAB) 30 mg QPM PO 01/05/18 21:00 02/04/18 20:59 01/06/18 20:38 30 MG Pantoprazole Sodium (Protonix Tab) 40 mg BID PO 01/05/18 21:00 02/04/18 20:59 01/07/18 08:05 40 MG Propranolol HCl (Inderal Tab) 10 mg TID PO 01/05/18 21:00 02/04/18 20:59 01/07/18 08:05 10 MG Cholecalciferol (Vitamin D Tab) 2,000 inter.unit QPM PO 01/05/18 21:00 02/04/18 20:59 01/06/18 20:38 2,000 INTER.UNIT Potassium Chloride 10 meq/ Prmx 100 ml @ 100 mls/hr Q1H IV 01/05/18 17:30 01/05/18 19:17 DC 01/05/18 18:22 100 MLS/HR Potassium Chloride (Klor-Con Tab) 40 meq NOW STAT PO 01/05/18 19:16 01/05/18 19:20 DC 01/05/18 19:31 40 MEQ Potassium Chloride (Klor-Con Tab) 20 meq NOW ONCE PO 01/06/18 08:30 01/06/18 08:33 DC 01/06/18 09:05 20 MEQ (Mona Barksdale ., SPECIFICATION CONSULTANT) Objective Vital Signs Date Time Temp Pulse Resp B/P (MAP) Pulse Ox O2 Delivery O2 Flow Rate FiO2 01/07/18 08:00 Nasal Cannula 2.0 01/07/18 07:24 36.8 73 20 116/65 (82) 95 01/07/18 04:21 36.4 81 16 123/73 (90) 93 Nasal Cannula 2.0 01/07/18 04:05 Nasal Cannula 2.0 01/07/18 00:05 Nasal Cannula 2.0 01/06/18 22:45 36.4 81 20 130/80 (97) 91 2.0 01/06/18 20:05 Nasal Cannula 2.0 01/06/18 19:11 36.4 76 20 124/62 (82) 94 Nasal Cannula 2.0 01/06/18 16:02 36.3 70 20 114/71 (85) 96 Nasal Cannula 2.0 01/06/18 16:00 Nasal Cannula 2.0 01/06/18 14:18 76 116/69 (85) 01/06/18 12:17 36.4 84 20 133/76 (95) 94 Nasal Cannula 2.0 01/06/18 12:00 Nasal Cannula 2.0 (Mona Barksdale, SPECIFICATION CONSULTANT) Physical Exam Notes: General: no distress Eyes: normal inspection, PERLL Respiratory: chest non tender, clear to auscultation, normal breath sounds, no respiratory distress, no accessory muscle use Cardiac: regular rate and rhythm, no rub or gallop, no murmur, no edema, no jvd GI/: active bowel sounds, no abd pain or tenderness, soft, distended Extremities: normal range of motion, normal strength, non tender Neuro/Psych: alert and oriented x 3, normal mood and affect Skin: normal color, dry (Mona Barksdale CRNP) Laboratory Results Last 24 Hours Test 01/07/18 05:24 01/07/18 09:00 White Blood Count 3.17 K/uL Red Blood Count 3.20 M/uL Hemoglobin 8.5 g/dL Hematocrit 27.2 % Mean Corpuscular Volume 85.0 fL Mean Corpuscular Hemoglobin 26.6 pg Mean Corpuscular Hemoglobin Concent 31.3 g/dl RDW Standard Deviation 56.4 fL RDW Coefficient of Variation 18.2 % Platelet Count 62 K/uL Nucleated RBC Absolute Count (auto) 0.26 K/uL Nucleated Red Blood Cells % 8.2 % Platelet Estimate DECREASED Prothrombin Time 25.8 SECONDS Prothromb Time International Ratio 2.5 Sodium Level 141 mmol/L Potassium Level 3.6 mmol/L Chloride Level 111 mmol/L Carbon Dioxide Level 25 mmol/L Anion Gap 5.0 mmol/L Blood Urea Nitrogen 13 mg/dl Creatinine 0.88 mg/dl Est Creatinine Clear Calc Drug Dose 65.4 ml/min Estimated GFR () 82.8 Estimated GFR (Non- 71.4 BUN/Creatinine Ratio 15.3 Random Glucose 97 mg/dl Calcium Level 8.4 mg/dl Total Bilirubin 1.3 mg/dl Direct Bilirubin 0.3 mg/dl Aspartate Amino Transf (AST/SGOT) 24 U/L Alanine Aminotransferase (ALT/SGPT) 18 U/L Alkaline Phosphatase 152 U/L Total Protein 6.3 gm/dl Albumin 2.7 gm/dl (Mona Barksdale CRNP) Assessment and Plan Ms. Roy is a 62 year old woman here for pneumonia Hypoxic respiratory failure secondary to pneumonia vs viral infection vs inflammatory process - CTA showing diffuse pleural and parenchymal densities are identified bilaterally, small bilateral pleural effusions, right lower lobe and to a lesser extent left base parenchymal infiltrative changes; Neg for PE - Jakafi was recently d/c'd without taper due to thrombocytopenia requiring transfusion. No reports of pneumonitis as adverse reaction to Jakafi - Patient improving today with IV abx - Continue with ceftriaxone and azithromycin - WBC low and afebrile in the setting of immunosuppression - Blood cx ngtd - procalcitonin pending Diarrhea - C.diff negative - stool cultures no growth UTI - UA +, urine culture showing three organisms - no recollection at this time as current abx should cover an infection Abd distention -LFTs initially increased but now trending back down - Abd US showed sludge in gallbladder but no ductal dilation - Pt with hx of non-alcoholic steatosis and hepatomegaly - has seen Dr. Blank in the past MDS, Anemia - recently transfused with 2u PRBCs, 1u platelets - Hgb this morning 8.5 down from 10, may be dilutional as patient was not taking in much po in the weeks before coming to the hospital - Follows with Dr. Vergara - Jakafi stopped 2 weeks ago due to thrombocytopenia requiring transfusion Hx of PE, supratherapeutic INR: on coumadin 2.5mg QD at home - INR 3.3 on admission and then trended up to 4.2 while Coumadin was held - INR 2.5 today, will restart Coumadin at 2 mg DNR DVT proph - Coumadin Transfer to med surg (Mona Barksdale ., NOBLE) PUMPING PLANT OPERATOR Physician Supervision Note: I interviewed and examined the patient. Discussed with Mona Barksdale PUMPING PLANT OPERATOR and agree with findings and plan as documented in the note. Any exceptions or clarifications are listed here: None this pt looks and feels much better today, is breathing easier, no cough, did have some mild reduction in hgb which maybe dilutional vitals are stable 36.8 73 20 123/73 lungs clear, cardiac is regular, trace edema continue antibiotic treatment and her chronic anticoagulation, she has improved and if continues to do so will likely be home in next day Documented By: Gerardo Hernandez (Gerardo Hernandez M.D.)
[2018-01-07 11:17] VITALS: BP 124/66; PULSE 90; TEMP 36.7; O2SAT 93
[2018-01-07 14:47] VITALS: BP 105/62; PULSE 72; TEMP 36.7; O2SAT 96
[2018-01-07] MEDS ORDERED: WARFARIN SOD 2 MG TAB PO SCH (16:00)
[2018-01-07] MEDS: CEFTRIAXONE SOD INJ 1 GM in DEXTROSE 5% ADD-VANTAGE 50ML 50 ML IV SCH (18:17)
[2018-01-07] MEDS: AZITHROMYCIN IV 500 MG in DEXTROSE 5% 250ML 250 ML IV SCH (18:17)
[2018-01-07 19:27] VITALS: BP 116/74; PULSE 75; TEMP 36.5; O2SAT 95
[2018-01-07] MEDS: CHOLECALCIFEROL 1000 INTER.UNIT TAB PO SCH (20:38)
[2018-01-07] MEDS: CITALOPRAM 20 MG TAB PO SCH (20:39)
[2018-01-07 23:15] VITALS: BP 118/64; PULSE 79; TEMP 36.8; O2SAT 97
[2018-01-08] VITALS: O2SAT 97
[2018-01-08 06:26] LABS: MEAN CORPUSCULAR HGB CONC 31.4 g/dl (32-36)
[2018-01-08 06:31] LABS: HEMATOCRIT 26.4 % (37-47); HEMOGLOBIN 8.3 g/dL (12.0-16.0); MEAN CELL VOLUME 85.4 fL (80-100); MEAN CORPUSCULAR HEMOGLOBIN 26.9 pg (25-34); RED CELL DISTRIBUTION WIDTH CV 18.2 % (11.5-14.5); RED CELL DISTRIBUTION WIDTH SD 56.5 fL (36.4-46.3); WHITE BLOOD COUNT 3.12 K/uL (4.8-10.8)
[2018-01-08 06:34] LABS: INR 1.8 (0.9-1.1)
[2018-01-08 06:56] LABS: NUCLEATED RED BLOOD CELL ABS 0.34 K/uL (0-0); PLATELET COUNT 60 K/uL (130-400)
[2018-01-08 06:57] LABS: CALCIUM 8.4 mg/dl (8.5-10.1); CREATININE 0.97 mg/dl (0.60-1.20); POTASSIUM 3.7 mmol/L (3.5-5.1)
[2018-01-08 07:21] VITALS: BP 105/62; PULSE 87; TEMP 37.2; O2SAT 90
[2018-01-08] MEDS: PROPRANOLOL HCL 10 MG TAB PO SCH (08:33)
[2018-01-08] MEDS: PANTOprazole SOD 40 MG TAB PO SCH (08:33)
--- NOTE | 2018-01-08 09:40 | Discharge Instructions ---
Discharge Instructions Date of Service Jan 08, 2018. Admission Reason for Admission: Shortness Of Breath Discharge Discharge Diagnosis / Problem: Pneumonia Discharge Goals Goal(s): Improve function, Improve disease control Activity Recommendations Activity Limitations: resume your previous activity Exercise/Sports Limitations: gradually increase as tolerated . Instructions / Follow-Up Instructions / Follow-Up Please follow up with your primary care provider within about a week and Dr. Vergara in the next 1-2 weeks Please have your INR drawn on Thursday I am sending you home with two antibiotics, please complete your antibiotic regimen Current Hospital Diet Patient's current hospital diet: Regular Diet Discharge Diet Recommended Diet: Regular Diet Procedures Procedures Performed: Abdominal ultra sound Chest xray Chest CT Pending Studies Studies pending at discharge: no Medical Emergencies . Who to Call and When: Medical Emergencies: If at any time you feel your situation is an emergency, please call 911 immediately. . Non-Emergent Contact Non-Emergency issues call your: Primary Care Provider Call Non-Emergent contact if: you have a fever, you have any medication questions . . "Provider Documentation" section prepared by Mona Barksdale. .
[2018-01-08] MEDS ORDERED: AZIT-57 PO (09:46)
[2018-01-08] MEDS ORDERED: AMOX875T PO (09:46)
--- NOTE | 2018-01-08 09:56 | Discharge Summary ---
Discharge Summary Date of Service Jan 08, 2018. Discharge Summary Admission Date: Jan 05, 2018 at 15:38 Discharge Date: Jan 08, 2018 Discharge Disposition: Home Principal Diagnosis: Hypoxic respiratory failure secondary to pneumonia Immunizations: Have You Had Influenza Vaccine: Yes History of Tetanus Vaccine?: Yes History of Pneumococcal: Yes History of Hepatitis B Vaccine: No Procedures: Diarrhea, UTI, Abd distention, MDS, Anemia, Hx of PE, supratherapeutic INR Medication Reconciliation New Medications: Amoxicillin & Pot Clavulanate (Augmentin 875-125 mg) 1 Tab Tab 875 MG PO BID for 4 Days, #8 TAB Azithromycin (Azithromycin) 250 Mg Tab 250 MG PO DAILY for 2 Days, #2 DOSE Continued Medications: Cholecalciferol (Vitamin D) 2,000 Unit Cap 2000 UNIT PO QPM Citalopram Hydrobromide (Citalopram Hydrobromide) 20 Mg Tab 30 MG PO QPM Pantoprazole (Protonix) 40 Mg Tab 40 MG PO BID, #30 TAB Propranolol (Inderal) 10 Mg Tab 10 MG PO TID Warfarin Sod (Jantoven) 2.5 Mg Tab 2.5 MG PO DAILY, TAB Discharge Exam ROS Constitutional: no chills, aches, sweats or fever Respiratory: no sob,cough, sputum, or wheezing Cardiac: no chest pain, palpitations, edema, orthopnea or lightheadedness GI: no abdominal pain, nausea, vomiting, diarrhea or constipation : no dysuria or hesitancy Extremities: no joint pain or weakness Skin: no rash All other systems reviewed and negative. Ms. Roy is ambulating the halls and feeling well. She feels ready to go home today. General: no distress Eyes: normal inspection, PERLL Respiratory: chest non tender, clear to auscultation, normal breath sounds, no respiratory distress, no accessory muscle use Cardiac: regular rate and rhythm, no rub or gallop, no murmur, no edema, no jvd GI/: active bowel sounds, no abd pain or tenderness, soft, non distended Extremities: normal range of motion, normal strength, non tender Neuro/Psych: alert and oriented x 3, normal mood and affect Skin: normal color, dry Hospital Course Ms. roy is a 62 y/o F who presented to the ED with SOB and diarrhea. She was seen by Dr. Vergara, who she follows with for MDS, about 2 weeks ago. She was found to be anemia and received 2 units of PRBC, 1 unit of platelets, and 2 units of IVF. She did not feel better after these interventions. She has been on Jakafi since 2015 for MDS. Due to the thrombocytopenia, this was stopped about 2 weeks ago. She was also constantly nauseated and eating only 7up and toast due to this. She also felt like she had gained weight in her abd only. She stated that today she attempted to put on a pair of pants that she worse two weeks ago but could not get them buttoned. Hypoxic respiratory failure secondary to pneumonia vs viral infection vs inflammatory process - CTA showing diffuse pleural and parenchymal densities are identified bilaterally, small bilateral pleural effusions, right lower lobe and to a lesser extent left base parenchymal infiltrative changes; Neg for PE - Jakafi was recently d/c'd without taper due to thrombocytopenia requiring transfusion. No reports of pneumonitis as adverse reaction to Jakafi in literature - Patient improved with IV abx - given ceftriaxone and azithromycin, will dc home with azithromycin and Augmentin - WBC low and afebrile in the setting of immunosuppression - Blood cx ngtd Diarrhea, nausea - C.diff negative - stool cultures no growth - resolved, no further diarrhea, patient eating and drinking well UTI - UA +, urine culture showing three organisms - no recollection at this time as current abx should cover an infection Abd distention -LFTs initially increased but now trending back down - Abd US showed sludge in gallbladder but no ductal dilation - Pt with hx of non-alcoholic steatosis and hepatomegaly - has seen Dr. Blank in the past - today patient feels her distention has resolved, belly is soft MDS, Anemia - recently transfused with 2u PRBCs, 1u platelets outpatient - Hgb stable around 8.5 down from 10 which may be dilutional as patient was not taking in much po in the weeks before coming to the hospital - Follows with Dr. 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 Discussed with Mona Barksdale TAPE FOLDING MACHINE OPERATOR and agree with findings and plan as documented in the note. Any exceptions or clarifications are listed here: None Patient looks and feels much better she is breathing room air even with ambulation she denied any significant hypoxia because of lack of culture results and the patient's previous history of myelodysplastic syndrome and healthcare exposure she will be home on both Augmentin and azithromycin. She maintained chronic anticoagulation for her chronic physical pulmonary embolisms and although she has a contaminated urine culture her oral antibiotics should be appropriate to treat most urinary pathogens she is anemic with anemia of chronic disease likely from her myelodysplastic syndrome and this will be followed in 4 days with her routine outpatient blood draw which will be on [address] Alfaro in the hematology oncology clinic On the day of discharge she was without complaints her vitals are stable her lungs were clear Documented By: Gerardo Hernandez Total Time Spent: Greater than 30 minutes This includes examination of the patient, discharge planning, medication reconciliation, and communication with other providers. Discharge Instructions Please refer to the electronic Patient Visit Report (Discharge Instructions) for additional information. Follow-Up Dr. Yarbrough in on week Dr. Vergara Additional Copies To Manny Vergara D.O.; Shira Yarbrough MD
[2018-01-08 11:18] VITALS: BP 105/62; PULSE 87; TEMP 37.2; O2SAT 90
[2018-01-08] MEDS ORDERED: WARFARIN SOD 2.5 MG TAB PO SCH (16:00)
== END 2018-01-08 14:06 | disposition home or self-care (01) | DRG 193 ==
LOC: C.EDB 11:25 → C.MED 15:38 → ENRESERV 16:09 → C.MS2W 01-07 19:56
PROVIDERS: ADMIT Family Medicine; ATTEND Internal Medicine
DX: J18.9 Pneumonia, unspecified organism (principal); J96.01 Acute respiratory failure with hypoxia; N39.0 Urinary tract infection, site not specified; R19.7 Diarrhea, unspecified; D64.9 Anemia, unspecified; R14.0 Abdominal distension (gaseous); K76.0 Fatty (change of) liver, not elsewhere classified; R16.2 Hepatomegaly with splenomegaly, not elsewhere classified; D46.9 Myelodysplastic syndrome, unspecified; R79.1 Abnormal coagulation profile; T45.515A Adverse effect of anticoagulants, initial encounter; Z66 Do not resuscitate; Z86.711 Personal history of pulmonary embolism; Z79.01 Long term (current) use of anticoagulants; Z79.899 Other long term (current) drug therapy

== ENCOUNTER → 2018-02-11 | Outpatient (CLI) | payer OTHER ==
[~2018-02-11] MED LIST changes: +AZIT-57 PO; +WARF2.5T8 PO; -WARF5TAB90 PO; -[UNRECOGNIZED DRUG - CODE] PO
--- NOTE | 2018-02-11 11:23 | DIAGNOSTIC IMAGING REPORT ---
CHEST 2 VIEWS ROUTINE CLINICAL HISTORY: 62 years-old Female presenting with J18.9 PneumoniaOne-month follow-up to CXR showing pneumonia.RAD8. TECHNIQUE: PA and lateral views of the chest were obtained. COMPARISON: 01/05/2018. FINDINGS: Cardiomediastinal silhouette normal. Peripheral dense opacity in the right upper lung persists. Clearance of prior vague opacities throughout the right lung. No new focal opacity. No pleural effusion or pneumothorax. Osseous structures normal. Upper abdomen normal. IMPRESSION: 1. Persistent peripheral consolidation in the right upper lobe. This should be followed to resolution. Electronically signed by: Gee Mishra M.D. 02/11/2018 11:22 AM Dictated Date/Time: 02/11/2018 11:20 AM
== END | disposition home or self-care (01) ==
LOC: C.RAD 10:47
PROVIDERS: ATTEND Family Medicine
DX: J18.9 Pneumonia, unspecified organism (principal)

== ENCOUNTER 2021-09-18 17:12 | Inpatient (IN) ==
[2021-09-18] MEDS ORDERED: PROPOFOL IV EMULSION 10 MG/ML 100 ML VIAL IV ONE (17:17)
[2021-09-18] MEDS ORDERED: STAT IV Infusion **Titration per Protocol STA ×2 (17:19→17:21)
[2021-09-18] MEDS ORDERED: PROPOFOL BOLUS FROM BAG IV PRN ×2 (17:19→17:21)
[2021-09-18] MEDS ORDERED: propofoL 1,000 MG/100 ML VIAL IV SCH (17:30)
[2021-09-18 17:47] LABS: iSTAT Creatinine 1.2 mg/dl (0.6-1.3); iSTAT Hemoglobin 14.6 g/dl (12.0-16.0); iSTAT Ionized Calcium 1.11 mmol/l (1.12-1.32); iSTAT Potassium 4.1 mmol/L (3.3-5.0)
--- NOTE | 2021-09-18 17:52 | Emergency Department Note ---
Impression & Plan Respiratory failure, Bradycardic cardiac arrest, Syncope, COVID-19 ED Provider Note NAME: SANTA ANNA AGE: 66 SEX: F : 1955 ARRIVES VIA: Ambulance INFORMANT: EMS, the patient's significant other ED PROVIDER(S): Young Michaud DO CHIEF COMPLAINT: Syncope HPI: The patient is a 66-year-old female who has a history of cirrhosis who presented to the emergency department after having a syncopal episode. The patient had a syncopal episode while she was at a business. 911 was called and the patient was evaluated by the prehospital personnel. She was found to have a gaze defect and could only look to the right but no other stroke assessment was done at that time. The patient was having agonal respirations. She also appeared to have significant bradycardia. She was intubated by the prehospital personnel and also treated with Versed. She was then placed on a transcutaneous pacemaker. Her bradycardia was improved and she had mechanical capture. The pacemaker was able to be discontinued prior to arrival. The patient was responding to the endotracheal tube but was not following commands or answering questions. Her presented to the emergency department. He states that she has been having no complaints recently. She does have extensive medical history including myeloproliferative disease as well as pulmonary embolism. She is currently taking blood thinners but also has a history of cirrhosis. She was seen at a specialist. She is considered to be a candidate for liver transplant. The patient has had no reported chest pain or trouble breathing. The patient has had no reported trauma. According to the significant other she is been compliant with her outpatient medications. ROS: See above HPI for pertinent positives & negatives. A total of 10 systems reviewed and were otherwise negative. PAST MEDICAL HISTORY: See Below PAST SURGICAL HISTORY: See Below FAMILY HISTORY: See Below SOCIAL HISTORY: See Below HOME MEDICATIONS: See Below ALLERGIES: See Below VITALS: See Below PHYSICAL EXAMINATION: GENERAL: The patient is obtunded and does not follow commands. She does appear to localize pain. She appears to have some gag reflex with the endotracheal tu be in place. EYES: The conjunctivae are clear. The pupils are round and reactive. The patient does not follow commands so extraocular muscles cannot be assessed at this time. EARS, NOSE, MOUTH AND THROAT: The nose is without any evidence of any deformity. NECK: The neck is nontender and supple. JVD was noted. RESPIRATORY: Respirations were noted with bagging. CARDIOVASCULAR: Regular rate and rhythm noted there no murmurs rubs or gallops normal S1 normal S2. GASTROINTESTINAL: The abdomen was soft and mildly distended. There is no guarding. MUSCULOSKELETAL/EXTREMITIES: There is no evidence of gross deformity full range of motion is noted in the hips and shoulders. SKIN: Skin was warm and dry. Pedal edema was noted bilaterally. NEUROLOGIC: The patient appeared to be awake to loud verbal commands but only responds with moving extremities. She does not appear to follow commands meani ngfully at all. She does appear to move her left arm especially. MEDICAL DECISION MAKING: The patient is a 66-year-old female who presented to emergency department for an evaluation after having a syncopal episode. The patient has a history of cirrhosis. She also has a history of venous thromboembolic disease and takes anticoagulation. The patient reportedly had a syncopal episode. When EMS arrived they found the patient with ineffective respirations and bradycardic. She was intubated rather quickly in the field. She received Versed in the fiel d. She also received transcutaneous pacing. It is unclear at what point she had normal sinus rhythm but she started back into normal sinus rhythm likely after her oxygenation status improved. The transcutaneous pacer was able to be discontinued prior to arrival. The patient did not receive any chest compressions. The patient was not an easy examination upon arrival after she was given the Versed. Endotracheal tube was confirmed. I discussed the patient's laboratory and radiographic studies with her significant other. No definite cause for her syncope and collapse could be found. Specifically she did not appear to have any signs of stroke. She has no signs of large vessel occlusion. She has no signs of pulmonary embolism at this time. I discussed her condition with the on-call [facility] hospitalist. They have agreed to evaluate the patient in the emergency department for further management and disposition. There were no other signs of dysrhythmia while the patient was in the emergency department. I discussed her case with the ICU as well. Triage Nursing notes reviewed. Prior medical records reviewed Vital Signs: reviewed and remarkable for no significant abnormalities Differential diagnosis: Infection, hypoglycemia, electrolyte abnormalities, overdose, toxicologic, c ardiac sources, intracerebral event, neurologic, trauma, as well as other pathologies. ER treatment provided: See below Diagnostics interpreted by me: ECG: EKG was obtained in the emergency department. My interpretation is normal sinus rhythm at [address] depressions were noted. Nonspecific T wave abnormalities were noted. This was compared to a tracing from January 052017. No changes were noted. Cardiac Monitoring: An order was placed for continuous cardiac monitoring. The monitor shows a rate of 75 bpm with sinus rhythm. Laboratory studies: As stated above and show below. Imaging studies: See below Consultation(s): I discussed this case with staff who is on-call for the ICU this evening. I discussed this case with Dr. Odonnell who is on-call for the [facility] hospitalist group. Past Med/Surg History Medical History Anxiety Depression Esophageal varices hx banding 2 years ago Hepatomegaly History of blood clots neck, liver > 20 years ago History of DVT (deep vein thrombosis) RLE - > 20 years ago History of pulmonary embolism > 20 years ago LUQ abdominal pain Myelodysplastic disease follows with Dr. Vergara On anticoagulant therapy Portal hypertension Splenomegaly Upper GI bleed hx Surgical History H/O shoulder surgery Dr. Cornejo for left shoulder manipulation hx History of bone marrow biopsy History of colonoscopy History of esophagogastroduodenoscopy (EGD) most recent 12/25/20 [place] History of liver biopsy History of tubal ligation Family History Father , age 44 Heart disease Myocardial infarction Mother Hypertension Sister Coronary heart disease Mood disorder Sister Mood disorder Sister Mood disorder Sister Mood disorder Sister Mood disorder Sister Mood disorder Sister Mood disorder Brother Alcohol abuse Son , age 26 MVA (motor vehicle accident) Grandmother (Maternal) Breast cancer Aunt Breast cancer Other No family history of adverse response to anesthesia Denies family history of Ovarian cancer Prostate cancer Colorectal cancer Social History Smoking Status: Never smoker Second Hand Exposure: No; Hx Alcohol Use: No Hx Substance Use: No Preferred Language: Japanese Communication Ability: Effective 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 Beliefs That Will Affect Care: None marital status: Current Living Situation: Spouse current occupational status: retired Feels Safe at Home: Yes Childhood Exposure to Second-Hand Smoke: Yes Dental Care, Regularly: Yes Physical Activity Frequency: Does not Exercise Seatbelt Use: always Sunscreen Use: Yes Assistive Devices: None Allergies Allergies Allergy/AdvReac Type Severity Reaction Status Date / Time No Known Allergies Allergy Verified 09/18/21 17:42 Home Meds Home Medications Medication Instructions Recorded Confirmed cholecalciferol (vitamin D3) 50 2,000 unit PO HS 08/30/18 09/18/21 mcg (2,000 unit) capsule (Vitamin D3) ruxolitinib 10 mg tablet (Jakafi) 10 mg PO BID 05/25/19 09/18/21 citalopram 20 mg tablet (Celexa) 30 mg PO HS 09/10/21 09/18/21 furosemide 20 mg tablet 20 mg PO DAILY 09/18/21 09/18/21 Previous Rx's Medication Instructions Recorded 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 40 mg tablet,delayed 40 mg PO BID #180 tab 05/02/21 release rivaroxaban 10 mg tablet (Xarelto) 10 mg PO QPM #90 tab 05/02/21 propranolol 10 mg tablet 10 mg PO TID #270 tab 08/26/21 Results & Data (ED) Vital Signs Vital Signs - 24 hr 09/18/21 17:15 09/18/21 17:25 09/18/21 17:26 Temperature Temperature Source Pulse Rate 78 79 Pulse Rate from SpO2 Sensor 79 Pulse Rhythm Pulse Strength Respiratory Rate 20 20 Respiratory Effort / Characteristics Respiratory Depth Blood Pressure 101/63 Blood Pressure Mean 75 Pulse Oximetry 99 99 Oxygen Delivery Method Fraction of Inspired Oxygen 60 Sepsis Recent Fever Within 48 Hours Sepsis New/Unexplained Change in Mental Status Sepsis Action Taken by Nursing End-Tidal CO2 41 47 09/18/21 17:30 09/18/21 17:57 09/18/21 18:00 Temperature Temperature Source Pulse Rate 78 79 Pulse Rate from SpO2 Sensor 78 78 78 Pulse Rhythm Pulse Strength Respiratory Rate 16 12 9 L Respiratory Effort / Characteristics Respiratory Depth Blood Pressure 100/69 129/73 Blood Pressure Mean 79 91 Pulse Oximetry 97 95 96 Oxygen Delivery Method Fraction of Inspired Oxygen Sepsis Recent Fever Within 48 Hours Sepsis New/Unexplained Change in Mental Status Sepsis Action Taken by Nursing End-Tidal CO2 46 42 40 09/18/21 18:02 09/18/21 18:15 09/18/21 18:30 Temperature 36.8 C Temperature Source Temporal Artery Scan Pulse Rate 77 76 79 Pulse Rate from SpO2 Sensor 76 80 Pulse Rhythm Regular Pulse Strength Normal Respiratory Rate 16 13 20 Respiratory Effort / Characteristics Mechanically Ventilated Respiratory Depth Normal Blood Pressure Blood Pressure Mean Pulse Oximetry 97 97 92 Oxygen Delivery Method Mechanical Vent Fraction of Inspired Oxygen Sepsis Recent Fever Within 48 Hours No Sepsis New/Unexplained Change in Mental Status N/A Sepsis Action Taken by Nursing No Action Required End-Tidal CO2 37 38 09/18/21 18:31 09/18/21 18:44 09/18/21 18:45 Temperature Temperature Source Pulse Rate 79 76 75 Pulse Rate from SpO2 Sensor 80 76 75 Pulse Rhythm Pulse Strength Respiratory Rate 21 18 15 Respiratory Effort / Characteristics Respiratory Depth Blood Pressure 138/100 124/71 133/75 Blood Pressure Mean 112 88 94 Pulse Oximetry 95 95 Oxygen Delivery Method Mechanical Vent Mechanical Vent Fraction of Inspired Oxygen Sepsis Recent Fever Within 48 Hours Sepsis New/Unexplained Change in Mental Status Sepsis Action Taken by Nursing End-Tidal CO2 39 38 44 Home Medications Current Medication List: was personally reviewed by me Laboratory Data Attestation: I reviewed the patient's lab results. Result diagrams: 09/18/21 17:23 09/18/21 17:23 Lab Results 09/18/21 09/18/21 09/18/21 Range/Units 17:23 17:23 17:23 WBC 38.07 H* (4.8-10.8) K/uL RBC 5.08 (4.2-5.4) M/uL Hgb 13.2 (12.0-16.0) g/dL POC Hgb (12.0-16.0) g/dl Hct 44.7 (37-47) % POC Hct (37-47) % MCV 88.0 (80-100) fL MCH 26.0 (25-34) pg MCHC 29.5 L (32-36) g/dL RDW Std Deviation 65.3 H (36.4-46.3) fL RDW Coeff of Polina 21.1 H (11.5-14.5) % Plt Count 439 H (130-400) K/uL Absolute Nucleated RBC 8.01 H (0-0) K/uL Nucleated RBC % (auto) 21.0 % Neutrophils % (Manual) 33.3 % Lymphocytes % (Manual) 36.7 % Monocytes % (Manual) 7.5 % Eosinophils % (Manual) 3.3 % Basophils % (Manual) 2.5 % Metamyelocytes % (Man) 10.0 % Myelocytes % (Man) 6.7 % Neutrophils # (Manual) 12.68 H (1.4-6.5) K/uL Total Absolute Neuts 12.68 H (1.4-6.5) K/uL Lymphocytes # (Manual) 13.97 H (1.2-3.4) K/uL Total Abs Lymphocytes 13.97 H (1.2-3.4) K/uL Monocytes # (Manual) 2.86 H (0.11-0.59) K/uL Eosinophils # (Manual) 1.26 H (0-0.5) K/uL Basophils # (Manual) 0.95 H (0-0.2) K/uL Metamyelocytes # (Man) 3.81 H (0-0) K/uL Myelocytes # (Manual) 2.55 H (0-0) K/uL Polychromasia 1+ Basophilic Stippling 1+ Tear Drop Cells 2+ PT 15.3 H (9.0-12.0) Seconds INR 1.6 H (0.9-1.1) APTT 36.6 H (21.0-31.0) Seconds PTT Ratio 1.4 POC Sodium (135-144) mmol/L Sodium 141 (136-145) mmol/L POC Potassium (3.3-5.0) mmol/L Potassium 4.2 (3.5-5.1) mmol/L POC Chloride (101-112) mmol/L Chloride 111 H (98-107) mmol/L Carbon Dioxide 25 (21-32) mmol/L POC Total CO2 (24-31) mmol/L Anion Gap 5.0 (3-11) POC Anion Gap (16-25) mmol/L POC BUN (7-18) mg/dl BUN 27 H (7-18) mg/dl Creatinine 1.30 H (0.6-1.2) mg/dl POC Creatinine (0.6-1.3) mg/dl Est Cr Clr Drug Dosing 40.7 ml/min Est GFR ( Amer) 50.2 ml/min Est GFR (Non-Af Amer) 43.3 ml/min BUN/Creatinine Ratio 20.7 H (10-20) Glucose 102 H (70-99) mg/dl POC Glucose (other) (70-99) mg/dl Calcium 8.2 L (8.5-10.1) mg/dl POC Ioniz Calcium Jerald (1.12-1.32) mmol/l Magnesium 2.3 (1.8-2.4) mg/dl Total Bilirubin 1.3 H (0.2-1) mg/dl AST 101 H (15-37) U/L ALT 48 (12-78) Alkaline Phosphatase 366 H (45-117) U/L Troponin I 0.021 (0-0.045) ng/ml Total Protein 6.6 (6.4-8.2) gm/dl Albumin 3.3 L (3.4-5.0) gm/dl Globulin 3.3 (2.5-4.0) gm/dl Albumin/Globulin Ratio 1.0 (0.9-2) Urine Color Urine Appearance (Clear) Urine pH (4.5-7.5) Ur Specific [place] (1.000-1.030) Urine Protein (Negative) Urine Glucose (UA) (Negative) Urine Ketones (Negative) Urine Blood (Negative) Urine Nitrite (Negative) Urine Bilirubin (Negative) Urine Urobilinogen (Negative) Ur Leukocyte Esterase (Negative) SARS-CoV-2 (PCR) (Negative) Influenza Type A (PCR) (Neg) Influenza Type B (PCR) (Neg) RSV (RT-PCR) (Neg) 09/18/21 09/18/21 09/18/21 Range/Units 17:35 18:16 18:55 WBC (4.8-10.8) K/uL RBC (4.2-5.4) M/uL Hgb (12.0-16.0) g/dL POC Hgb 14.6 (12.0-16.0) g/dl Hct (37-47) % POC Hct 43 (37-47) % MCV (80-100) fL MCH (25-34) pg MCHC (32-36) g/dL RDW Std Deviation (36.4-46.3) fL RDW Coeff of Polina (11.5-14.5) % Plt Count (130-400) K/uL Absolute Nucleated RBC (0-0) K/uL Nucleated RBC % (auto) % Neutrophils % (Manual) % Lymphocytes % (Manual) % Monocytes % (Manual) % Eosinophils % (Manual) % Basophils % (Manual) % Metamyelocytes % (Man) % Myelocytes % (Man) % Neutrophils # (Manual) (1.4-6.5) K/uL Total Absolute Neuts (1.4-6.5) K/uL Lymphocytes # (Manual) (1.2-3.4) K/uL Total Abs Lymphocytes (1.2-3.4) K/uL Monocytes # (Manual) (0.11-0.59) K/uL Eosinophils # (Manual) (0-0.5) K/uL Basophils # (Manual) (0-0.2) K/uL Metamyelocytes # (Man) (0-0) K/uL Myelocytes # (Manual) (0-0) K/uL Polychromasia Basophilic Stippling Tear Drop Cells PT (9.0-12.0) Seconds INR (0.9-1.1) APTT (21.0-31.0) Seconds PTT Ratio POC Sodium 143 (135-144) mmol/L Sodium (136-145) mmol/L POC Potassium 4.1 (3.3-5.0) mmol/L Potassium (3.5-5.1) mmol/L POC Chloride 107 (101-112) mmol/L Chloride (98-107) mmol/L Carbon Dioxide (21-32) mmol/L POC Total CO2 24 (24-31) mmol/L Anion Gap (3-11) POC Anion Gap 16.0 (16-25) mmol/L POC BUN 30 H (7-18) mg/dl BUN (7-18) mg/dl Creatinine (0.6-1.2) mg/dl POC Creatinine 1.2 (0.6-1.3) mg/dl Est Cr Clr Drug Dosing ml/min Est GFR ( Amer) ml/min Est GFR (Non-Af Amer) ml/min BUN/Creatinine Ratio (10-20) Glucose (70-99) mg/dl POC Glucose (other) 98 (70-99) mg/dl Calcium (8.5-10.1) mg/dl POC Ioniz Calcium Jerald 1.11 L (1.12-1.32) mmol/l Magnesium (1.8-2.4) mg/dl Total Bilirubin (0.2-1) mg/dl AST (15-37) U/L ALT (12-78) Alkaline Phosphatase (45-117) U/L Troponin I (0-0.045) ng/ml Total Protein (6.4-8.2) gm/dl Albumin (3.4-5.0) gm/dl Globulin (2.5-4.0) gm/dl Albumin/Globulin Ratio (0.9-2) Urine Color Yellow Urine Appearance Cloudy A (Clear) Urine pH 8.5 H (4.5-7.5) Ur Specific [place] 1.026 (1.000-1.030) Urine Protein 4+ H (Negative) Urine Glucose (UA) Trace H (Negative) Urine Ketones Negative (Negative) Urine Blood 3+ H (Negative) Urine Nitrite Negative (Negative) Urine Bilirubin Negative (Negative) Urine Urobilinogen Negative (Negative) Ur Leukocyte Esterase Negative (Negative) SARS-CoV-2 (PCR) POSITIVE A* (Negative) Influenza Type A (PCR) Negative (Neg) Influenza Type B (PCR) Negative (Neg) RSV (RT-PCR) Negative (Neg) 09/18/21 Range/Units 19:47 WBC (4.8-10.8) K/uL RBC (4.2-5.4) M/uL Hgb (12.0-16.0) g/dL POC Hgb 13.6 (12.0-16.0) g/dl Hct (37-47) % POC Hct 40 (37-47) % MCV (80-100) fL MCH (25-34) pg MCHC (32-36) g/dL RDW Std Deviation (36.4-46.3) fL RDW Coeff of Polina (11.5-14.5) % Plt Count (130-400) K/uL Absolute Nucleated RBC (0-0) K/uL Nucleated RBC % (auto) % Neutrophils % (Manual) % Lymphocytes % (Manual) % Monocytes % (Manual) % Eosinophils % (Manual) % Basophils % (Manual) % Metamyelocytes % (Man) % Myelocytes % (Man) % Neutrophils # (Manual) (1.4-6.5) K/uL Total Absolute Neuts (1.4-6.5) K/uL Lymphocytes # (Manual) (1.2-3.4) K/uL Total Abs Lymphocytes (1.2-3.4) K/uL Monocytes # (Manual) (0.11-0.59) K/uL Eosinophils # (Manual) (0-0.5) K/uL Basophils # (Manual) (0-0.2) K/uL Metamyelocytes # (Man) (0-0) K/uL Myelocytes # (Manual) (0-0) K/uL Polychromasia Basophilic Stippling Tear Drop Cells PT (9.0-12.0) Seconds INR (0.9-1.1) APTT (21.0-31.0) Seconds PTT Ratio POC Sodium 141 (135-144) mmol/L Sodium (136-145) mmol/L POC Potassium 4.7 (3.3-5.0) mmol/L Potassium (3.5-5.1) mmol/L POC Chloride 105 (101-112) mmol/L Chloride (98-107) mmol/L Carbon Dioxide (21-32) mmol/L POC Total CO2 26 (24-31) mmol/L Anion Gap (3-11) POC Anion Gap 15.0 L (16-25) mmol/L POC BUN 29 H (7-18) mg/dl BUN (7-18) mg/dl Creatinine (0.6-1.2) mg/dl POC Creatinine 1.2 (0.6-1.3) mg/dl Est Cr Clr Drug Dosing ml/min Est GFR ( Amer) ml/min Est GFR (Non-Af Amer) ml/min BUN/Creatinine Ratio (10-20) Glucose (70-99) mg/dl POC Glucose (other) 103 H (70-99) mg/dl Calcium (8.5-10.1) mg/dl POC Ioniz Calcium Jerald 1.17 (1.12-1.32) mmol/l Magnesium (1.8-2.4) mg/dl Total Bilirubin (0.2-1) mg/dl AST (15-37) U/L ALT (12-78) Alkaline Phosphatase (45-117) U/L Troponin I (0-0.045) ng/ml Total Protein (6.4-8.2) gm/dl Albumin (3.4-5.0) gm/dl Globulin (2.5-4.0) gm/dl Albumin/Globulin Ratio (0.9-2) Urine Color Urine Appearance (Clear) Urine pH (4.5-7.5) Ur Specific [place] (1.000-1.030) Urine Protein (Negative) Urine Glucose (UA) (Negative) Urine Ketones (Negative) Urine Blood (Negative) Urine Nitrite (Negative) Urine Bilirubin (Negative) Urine Urobilinogen (Negative) Ur Leukocyte Esterase (Negative) SARS-CoV-2 (PCR) (Negative) Influenza Type A (PCR) (Neg) Influenza Type B (PCR) (Neg) RSV (RT-PCR) (Neg) Administered Medications Propofol (Diprivan) 1,000 mg in 100 mls @ 8.28 mls/hr IV .Q12H5M [facility]; Protocol Stop: 09/21/21 17:29 Last Titration: 09/18/21 19:34 Dose: 20 mcg/kg/min, 8.3 mls/hr Documented by: [id number] Admin: 09/18/21 18:48 Dose: 5 mcg/kg/min, 2.1 mls/hr Documented by: [id number] Cosigned by: [id number] Discontinued Medications Dexamethasone Sodium Phosphate (DexamethasonePf 10 Mg/Ml Vial) 10 mg IV NOW ONE Stop: 09/18/21 18:53 Last Admin: 09/18/21 19:49 Dose: 10 mg Documented by: [id number] Sodium Chloride (Nss 1000ml) 1,000 mls @ 999 mls/hr IV .Q1H1M ONE Stop: 09/18/21 19:52 Last Admin: 09/18/21 19:51 Dose: 999 mls/hr Documented by: [id number] Ioversol (Optiray 320 125ml) 120 ml IV ONCE ONE Stop: 09/18/21 17:54 Last Admin: 09/18/21 17:53 Dose: 120 ml Documented by: [id number] Miscellaneous (Stat Iv Infusion Titration Per Protocol) 1 ea N/A NOW STA Stop: 09/18/21 17:22 Last Admin: 09/18/21 18:51 Dose: Not Given Documented by: [id number] Propofol (Propofol Iv Emulsion 10 Mg/Ml 100 Ml Vial) Confirm Administered Dose 1,000 mg IV .STK-MED ONE Stop: 12/29/21 17:18 Last Admin: 09/18/21 18:51 Dose: Not Given Documented by: [id number] Imaging Data Radiologist's Impression: Chest X-Ray 09/18/21 17:22 XR chest 1V portable CLINICAL HISTORY: Stroke Like Symptoms. Evaluate cardiopulmonary status COMPARISON STUDY: 01/05/2018 TECHNIQUE: 1 view of the chest FINDINGS: Single frontal view of the chest demonstrates the heart to be enlarged. Endotracheal tube is in place with its tip approximately 3.8 cm above the yoav. Patchy interstitial and alveolar opacities bilaterally characteristic of a viral type pneumonitis and probable Covid 19 pneumonia. Symptoms There is no evidence for pleural effusion. There is no evidence for vascular congestion. There is no acute osseous pathology. IMPRESSION: Patchy interstitial and alveolar opacities bilaterally characteristic of a viral type pneumonitis and probable Covid 19 pneumonia. Endotracheal tube in anatomic position. ACT 112: Negative or not required by law. Electronically signed by: Dylon Echeverria M.D. 09/18/2021 6:[address] 09/18/21 17:22 CT head/brain wo con CLINICAL HISTORY: Stroke Like Symptoms . Patient unresponsive COMPARISON STUDY: No previous studies for comparison. CT DOSE: TECHNIQUE: Standard CT of the Brain was performed without IV contrast. A dose lowering technique was utilized adhering to the principles of ALARA. FINDINGS: Extraaxial space: There is no evidence for subdural hematoma. There are no extra-axial fluid collections. Ventricles and cisterns: The ventricles are normal in size and configuration. There is no evidence for midline shift or mass effect. Parenchyma: There is no subarachnoid or intraparenchymal hemorrhage. There is no evidence for an acute infarct or cerebral edema. There is homogeneous attenuation of the brain parenchyma. There are no gross mass lesions. Osseous structures: There is no evidence for an acute fracture. There is mucosal thickening present involving the left maxillary antrum with mucosal polyp versus inclusion cyst present. The remaining visualized paranasal sinuses are clear. The mastoid air cells are clear bilaterally. Soft tissues: There is no evidence for focal soft tissue swelling. IMPRESSION: No acute intracerebral pathology. Chronic left maxillary sinusitis. ACT 112: Negative or not required by law. Electronically signed by: Dylon Echeverria M.D. 09/18/2021 6:11 PM Head CTA 09/18/21 17:22 CT angio head w con CLINICAL HISTORY: Stroke Like Symptoms . Patient unresponsive COMPARISON STUDY: No previous studies for comparison. CT DOSE: TECHNIQUE: CT Angio of the brain was performed.followed by image post processing with coronal, and sagittal MIP reformats. Contrast Volume: Omnipaque 320, 120 ml FINDINGS: Vascular findings: There is normal enhancement within the internal carotid arteries bilaterally. There is normal enhancement noted within the anterior, middle and posterior cerebral arteries. Nonvascular findings: There is homogeneous attenuation of the brain parenchyma bilaterally. There is no evidence for an acute infarct or cerebral edema. IMPRESSION: Negative CT angiogram of the brain with contrast. ACT 112: Negative or not required by law. Electronically signed by: Dylon Echeverria M.D. 09/18/2021 6:13 PM Neck CTA 09/18/21 17:22 CT angio neck with con CLINICAL HISTORY: Stroke Like Symptoms . Patient unresponsive COMPARISON STUDY: No previous studies for comparison. CT DOSE: TECHNIQUE: CT Angio of the neck was performed.followed by image post processing with coronal, and sagittal MIP reformats.. Stenosis assessment by NASCET criteria. Contrast Volume: Optiray 320, 120 ml FINDINGS: Vascular findings: Right common carotid artery: Patent without significant stenosis. Right internal carotid artery: Patent without significant stenosis. Right vertebral artery: Patent without significant stenosis. Left common carotid artery: Patent without significant stenosis. Left internal carotid artery: Patent without significant stenosis. Left vertebral artery: Patent without significant stenosis. Nonvascular findings: Endotracheal tube is in place. The parotid and submandibular salivary glands appear normal. There is no enlarged cervical adenopathy noted. The airway appears patent. The thyroid gland appears within normal limits. The lung apices appear within normal limits. Impression: Negative CT angiogram of the neck with contrast. ACT 112: Negative or not required by law. Electronically signed by: Dylon Echeverria M.D. 09/18/2021 6:16 PM Chest CTA 09/18/21 17:36 CT angio chest PE protocol CLINICAL HISTORY: Patient unresponsive. Evaluate for pulmonary embolus COMPARISON STUDY: No previous studies for comparison. CT DOSE: TECHNIQUE: CT Angio of the chest was performed.followed by image post p rocessing with coronal, and sagittal MIP reformats. Contrast Volume: Optiray 320, 120 ml FINDINGS: The study is limited by breathing motion artifact. Vasculature: There is homogeneous perfusion of the pulmonary vasculature bilaterally. No intraluminal filling defects or evidence for pulmonary embolus is seen. Airway: Endotracheal tube is in place. Lungs: There is again breathing motion artifact present. There is bilateral apical pleural scarring seen. There is also linear atelectasis versus scarring involving both lower lobes. The lungs are otherwise clear of acute alveolar opacities, air bronchograms or pulmonary nodules. Pleura: There is no evidence for pleural effusion. There is no evidence for pneumothorax. Mediastinum: There is no evidence for pathologic adenopathy. The heart size is within normal limits. The thoracic aorta is within normal limits. There is no evidence for pericardial effusion. Osseous structures: There is no acute osseous pathology. Impression: 1. No CTA evidence for pulmonary embolus. 2. The study is limited by patient breathing artifact with bilateral apical pleural scarring and atelectasis versus scarring involving both lower lobes. 3. No confluent alveolar opacities. 4. Mild cardiomegaly. ACT 112: Negative or not required by law. Electronically signed by: Dylon Echeverria M.D. 09/18/2021 6:40 PM Abdomen/Pelvis CT 09/18/21 17:41 CT abd pelvis IV con only CLINICAL HISTORY: Patient unresponsive. History of cirrhosis, splenomegaly and ascites. COMPARISON STUDY: 07/08/2021 CT DOSE: 1990.19 mGy.cm TECHNIQUE: Standard CT of the Abdomen and Pelvis was performed with IV contrast. A dose lowering technique was utilized adhering to the principles of ALARA. Contrast Volume: Optiray 320, 120 ml. The patient did not receive oral contrast. FINDINGS: Abdominal cavity: Compared to the previous examination, moderate abdominal and pelvic ascites is again seen which has slightly improved since the previous examination. There are extensive gastric and splenic varices present. Liver: There is again separation the liver margin with a appearance characteristic of cirrhosis. There is no evidence for enhancing mass lesion. Spleen: There is homogeneous attenuation of the splenic parenchyma. There is no enhancing mass lesion. However, there is again marked splenomegaly. Pancreas: There is homogeneous attenuation of the pancreatic parenchyma. There is no evidence for mass lesion or peripancreatic fluid collection. Gall Bladder: The gallbladder is partially contracted with cholelithiasis again seen. Adrenal glands: The adrenal glands are normal in size and attenuation. There is no evidence for enhancing mass lesion. Kidneys: There is homogeneous attenuation of the renal parenchyma bilaterally. There is no evidence for renal calculus or hydronephrosis. There is no evidence for enhancing mass. Bowel: The bowel loops are normally placed within the abdomen and pelvis without evidence for dilatation or obstruction. There is no evidence for mass lesion. There are no inflammatory changes present. There is no evidence for free air. Bladder: The bladder is within normal limits with no evidence for focal mass, calculus or diverticulum. : There is no evidence for pelvic mass or adenopathy. There is no evidence for pelvic ascites. Vasculature: There is no evidence for aneurysmal dilatation of the abdominal aorta. Osseous structures: There is no acute osseous pathology. There is again increased bony sclerosis throughout the imaged bones which is unchanged. IMPRESSION: 1. Compared to previous examination, there is no significant interval change with only slight interval decrease in moderate abdominal and pelvic ascites. 2. There is again cirrhosis of liver with marked splenomegaly and extensive gastric and splenic varices. 3. There is again evidence for cholelithiasis. 4. No other evidence for acute intra-abdominal or pelvic abnormality. 5. Additional nonacute findings are delineated above. ACT 112: Negative or not required by law. Electronically signed by: Dylon Echeevrria M.D. 09/18/2021 6:48 PM Discharge Plan Visit Data Chief Complaint: Respiratory Distress ED Provider: Young Michaud Discharge Problem: Respiratory failure, Bradycardic cardiac arrest, Syncope, COVID-19 Patient Disposition: Being Evaluated by Hospitalist Forms Stand Alone Forms: My varinode Prescriptions Prescriptions: No Action Xarelto 10 mg tablet 10 mg PO QPM Qty: 90 RF: 1 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 40 mg tablet,delayed release (DR/EC) 40 mg PO BID Qty: 180 RF: 1 propranolol 10 mg tablet 10 mg PO TID Qty: 270 RF: 1 Jakafi 10 mg tablet 10 mg PO BID RF: 0 cholecalciferol (vitamin D3) [Vitamin D3] 2,000 unit Capsule 2,000 unit PO HS RF: 0 furosemide 20 mg tablet 20 mg PO DAILY RF: 0 citalopram [Celexa] 20 mg tablet 30 mg PO HS RF: 0 Referrals Referrals: Shira Yarbrough MD [Primary Care Provider] -
[2021-09-18] MEDS ORDERED: OPTIRAY 320 125ml IV ONE (17:53)
[2021-09-18 18:07] LABS: Albumin Level 3.3 gm/dl (3.4-5.0); BUN Creatinine Ratio 20.7 (10-20); Calcium 8.2 mg/dl (8.5-10.1); Creatinine Clr Calc Pharmacy 40.7 ml/min; Est GFR (African American) 50.2 ml/min; Est GFR (Non-African American) 43.3 ml/min; Magnesium 2.3 mg/dl (1.8-2.4); Potassium 4.2 mmol/L (3.5-5.1)
[2021-09-18 18:08] LABS: INR 1.6 (0.9-1.1); Partial Thromboplastin Ratio 1.4; Partial Thromboplastin Time 36.6 Seconds (21.0-31.0); Prothrombin Time 15.3 Seconds (9.0-12.0)
[2021-09-18 18:11] LABS: Bilirubin,Total 1.3 mg/dl (0.2-1); Globulin 3.3 gm/dl (2.5-4.0); Total Protein 6.6 gm/dl (6.4-8.2); Troponin I 0.021 ng/ml (0-0.045)
--- NOTE | 2021-09-18 18:11 | XRay Report ---
XR chest 1V portable CLINICAL HISTORY: Stroke Like Symptoms. Evaluate cardiopulmonary status COMPARISON STUDY: 01/05/2018 TECHNIQUE: 1 view of the chest FINDINGS: Single frontal view of the chest demonstrates the heart to be enlarged. Endotracheal tube is in place with its tip approximately 3.8 cm above the yoav. Patchy interstitial and alveolar opacities bilat erally characteristic of a viral type pneumonitis and probable Covid 19 pneumonia. Symptoms There is no evidence for pleural effusion. There is no evidence for vascular congestion. There is no acute oss eous pathology. IMPRESSION: Patchy interstitial and alveolar opacities bilaterally characteristic of a viral type pne umonitis and probable Covid 19 pneumonia. Endotracheal tube in anatomic position. ACT 112: Negative or not required by law. Electronically signed by: Dylon Echeverria M.D. 09/18/2021 6:10 PM
--- NOTE | 2021-09-18 18:13 | CT Scan Report ---
CT head/brain wo con CLINICAL HISTORY: Stroke Like Symptoms . Patient unresponsive COMPARISON STUDY: No previous studies for comparison. CT DOSE: TECHNIQUE: Standard CT of the Brain was performed without IV contrast. A dose lowering technique was utilized adhering to the principles of ALARA. FINDINGS: Extraaxial space: There is no evidence for subdural hematoma. There are no extra-axial fluid collecti ons. Ventricles and cisterns: The ventricles are normal in size and configuration. There is no evidence f or midline shift or mass effect. Parenchyma: There is no subarachnoid or intraparenchymal hemorrhage. There is no evidence for an acu te infarct or cerebral edema. There is homogeneous attenuation of the brain parenchyma. There are no gross mass lesions. Osseous structures: There is no evidence for an acute fracture. There is mucosal thickening present i nvolving the left maxillary antrum with mucosal polyp versus inclusion cyst present. The remaining vi sualized paranasal sinuses are clear. The mastoid air cells are clear bilaterally. Soft tissues: There is no evidence for focal soft tissue swelling. IMPRESSION: No acute intracerebral pathology. Chronic left maxillary sinusitis. ACT 112: Negative or not required by law. Electronically signed by: Dylon Echeverria M.D. 09/18/2021 6:11 PM
--- NOTE | 2021-09-18 18:14 | CT Scan Report ---
CT angio head w con CLINICAL HISTORY: Stroke Like Symptoms . Patient unresponsive COMPARISON STUDY: No previous studies for comparison. CT DOSE: TECHNIQUE: CT Angio of the brain was performed.followed by image post processing with coronal, and s agittal MIP reformats. Contrast Volume: Omnipaque 320, 120 ml FINDINGS: Vascular findings: There is normal enhancement within the internal carotid arteries bilaterally. The re is normal enhancement noted within the anterior, middle and posterior cerebral arteries. Nonvascular findings: There is homogeneous attenuation of the brain parenchyma bilaterally. There is no evidence for an acute infarct or cerebral edema. IMPRESSION: Negative CT angiogram of the brain with contrast. ACT 112: Negative or not required by law. Electronically signed by: Dylon Echeverria M.D. 09/18/2021 6:13 PM
--- NOTE | 2021-09-18 18:17 | CT Scan Report ---
CT angio neck with con CLINICAL HISTORY: Stroke Like Symptoms . Patient unresponsive COMPARISON STUDY: No previous studies for comparison. CT DOSE: TECHNIQUE: CT Angio of the neck was performed.followed by image post processing with coronal, and sa gittal MIP reformats.. Stenosis assessment by NASCET criteria. Contrast Volume: Optiray 320, 120 ml FINDINGS: Vascular findings: Right common carotid artery: Patent without significant stenosis. Right internal carotid artery: Patent without significant stenosis. Right vertebral artery: Patent without significant stenosis. Left common carotid artery: Patent without significant stenosis. Left internal carotid artery: Patent without significant stenosis. Left vertebral artery: Patent without significant stenosis. Nonvascular findings: Endotracheal tube is in place. The parotid and submandibular salivary glands appear normal. There is no enlarged cervical adenopathy noted. The airway appears patent. The thyroid gland appears within normal limits. The lung apices ap pear within normal limits. Impression: Negative CT angiogram of the neck with contrast. ACT 112: Negative or not required by law. Electronically signed by: Dylon Echeverria M.D. 09/18/2021 6:16 PM
[2021-09-18 18:26] LABS: Hematocrit (blood only) 44.7 % (37-47); Hemoglobin 13.2 g/dL (12.0-16.0); Mean Corpuscular Hgb Conc 29.5 g/dL (32-36); Nucleated RBC # (auto) 8.01 K/uL (0-0); Platelet Count 439 K/uL (130-400); RDW Coefficient of Variation 21.1 % (11.5-14.5); RDW Standard Deviation 65.3 fL (36.4-46.3); Red Blood Count 5.08 M/uL (4.2-5.4); White Blood Count 38.07 K/uL (4.8-10.8)
--- NOTE | 2021-09-18 18:42 | CT Scan Report ---
CT angio chest PE protocol CLINICAL HISTORY: Patient unresponsive. Evaluate for pulmonary embolus COMPARISON STUDY: No previous studies for comparison. CT DOSE: TECHNIQUE: CT Angio of the chest was performed.followed by image post processing with coronal, and s agittal MIP reformats. Contrast Volume: Optiray 320, 120 ml FINDINGS: The study is limited by breathing motion artifact. Vasculature: There is homogeneous perfusion of the pulmonary vasculature bilaterally. No intraluminal filling defects or evidence for pulmonary embolus is seen. Airway: Endotracheal tube is in place. Lungs: There is again breathing motion artifact present. There is bilateral apical pleural scarring s een. There is also linear atelectasis versus scarring involving both lower lobes. The lungs are other shields clear of acute alveolar opacities, air bronchograms or pulmonary nodules. Pleura: There is no evidence for pleural effusion. There is no evidence for pneumothorax. Mediastinum: There is no evidence for pathologic adenopathy. The heart size is within normal limits. The thoracic aorta is within normal limits. There is no evidence for pericardial effusion. Osseous structures: There is no acute osseous pathology. Impression: 1. No CTA evidence for pulmonary embolus. 2. The study is limited by patient breathing artifact with bilateral apical pleural scarring and atel ectasis versus scarring involving both lower lobes. 3. No confluent alveolar opacities. 4. Mild cardiomegaly. ACT 112: Negative or not required by law. Electronically signed by: Dylon Echeverria M.D. 09/18/2021 6:40 PM
[2021-09-18] MEDS: propofoL 1,000 MG/100 ML VIAL IV SCH (18:48)
--- NOTE | 2021-09-18 18:49 | CT Scan Report ---
CT abd pelvis IV con only CLINICAL HISTORY: Patient unresponsive. History of cirrhosis, splenomegaly and ascites. COMPARISON STUDY: 07/08/2021 CT DOSE: 1990.19 mGy.cm TECHNIQUE: Standard CT of the Abdomen and Pelvis was performed with IV contrast. A dose lowering swetha hnique was utilized adhering to the principles of ALARA. Contrast Volume: Optiray 320, 120 ml. The patient did not receive oral contrast. FINDINGS: Abdominal cavity: Compared to the previous examination, moderate abdominal and pelvic ascites is agai n seen which has slightly improved since the previous examination. There are extensive gastric and sp lenic varices present. Liver: There is again separation the liver margin with a appearance characteristic of cirrhosis. Ther e is no evidence for enhancing mass lesion. Spleen: There is homogeneous attenuation of the splenic parenchyma. There is no enhancing mass lesion . However, there is again marked splenomegaly. Pancreas: There is homogeneous attenuation of the pancreatic parenchyma. There is no evidence for mas s lesion or peripancreatic fluid collection. Gall Bladder: The gallbladder is partially contracted with cholelithiasis again seen. Adrenal glands: The adrenal glands are normal in size and attenuation. There is no evidence for enhan cing mass lesion. Kidneys: There is homogeneous attenuation of the renal parenchyma bilaterally. There is no evidence f or renal calculus or hydronephrosis. There is no evidence for enhancing mass. Bowel: The bowel loops are normally placed within the abdomen and pelvis without evidence for dilatat ion or obstruction. There is no evidence for mass lesion. There are no inflammatory changes present. There is no evidence for free air. Bladder: The bladder is within normal limits with no evidence for focal mass, calculus or diverticulu m. : There is no evidence for pelvic mass or adenopathy. There is no evidence for pelvic ascites. Vasculature: There is no evidence for aneurysmal dilatation of the abdominal aorta. Osseous structures: There is no acute osseous pathology. There is again increased bony sclerosis thro ughout the imaged bones which is unchanged. IMPRESSION: 1. Compared to previous examination, there is no significant interval change with only slight interva l decrease in moderate abdominal and pelvic ascites. 2. There is again cirrhosis of liver with marked splenomegaly and extensive gastric and splenic varic es. 3. There is again evidence for cholelithiasis. 4. No other evidence for acute intra-abdominal or pelvic abnormality. 5. Additional nonacute findings are delineated above. ACT 112: Negative or not required by law. Electronically signed by: Dylon Echeverria M.D. 09/18/2021 6:48 PM
[2021-09-18] MEDS ORDERED: SODIUM CHLORIDE 0.9% 1000ML 1,000 ML IV ONE (18:52)
[2021-09-18] MEDS ORDERED: dexAMETHasone**PF** 10 MG/ML VIAL IV ONE (18:52)
[2021-09-18] MEDS ORDERED: PIPERACILLIN/TAZOBACTAM 4.5 GM/120 ML BAG IV ONE (18:54)
[2021-09-18] MEDS ORDERED: PIPERACILL/TAZOBAC CONSULT ACTIVE PRN ×2 (18:54→20:17)
[2021-09-18 19:04] LABS: ALC (manual) 13.97 K/uL (1.2-3.4); ANC (manual) 12.68 K/uL (1.4-6.5); Basophilic Stippling 1+; Basophils # (manual) 0.95 K/uL (0-0.2); Basophils % (manual) 2.5 %; Eosinophils # (manual) 1.26 K/uL (0-0.5); Eosinophils % (manual) 3.3 %; Lymphocytes # (manual) 13.97 K/uL (1.2-3.4); Lymphocytes % (manual) 36.7 %; Metamyelocytes # (manual) 3.81 K/uL (0-0); Monocytes # (manual) 2.86 K/uL (0.11-0.59); Monocytes % (manual) 7.5 %; Myelocytes # (manual) 2.55 K/uL (0-0); Myelocytes % (manual) 6.7 %; Neutrophils # (manual) 12.68 K/uL (1.4-6.5); Neutrophils % (manual) 33.3 %; Polychromasia 1+; Tear Drop Cells 2+
[2021-09-18 19:19] LABS: Influenza A virus by PCR Negative (Neg); Influenza B virus by PCR Negative (Neg); RSV by PCR Negative (Neg)
[2021-09-18 19:43] LABS: Appearance Urine Cloudy (Clear); Bacteria Urine Automated Negative (Negative); Bilirubin Urine Negative (Negative); Blood Urine 3+ (Negative); Color Urine Yellow; Glucose Urine UA Trace (Negative); Ketones Urine Negative (Negative); Leukocyte Esterase Urine Negative (Negative); Nitrite Urine Negative (Negative); Specific Gravity Urine 1.026 (1.000-1.030); Urobilinogen Urine Negative (Negative); WBC Urine Automated >30 /hpf (0-5); pH Urine 8.5 (4.5-7.5)
[2021-09-18 19:50] LABS: SARS CoV2 RNA(COVID-19) InHosp POSITIVE (Negative)
[2021-09-18 19:53] LABS: Protein Urine 4+ (Negative)
[2021-09-18 19:59] LABS: iSTAT Creatinine 1.2 mg/dl (0.6-1.3); iSTAT Hemoglobin 13.6 g/dl (12.0-16.0); iSTAT Ionized Calcium 1.17 mmol/l (1.12-1.32); iSTAT Potassium 4.7 mmol/L (3.3-5.0)
[2021-09-18 20:05] LABS: RBC Urine Automated >30 /hpf (0-4)
--- NOTE | 2021-09-18 20:27 | History & Physical Report ---
Date of Service September 18, 2021 Assessment & Plan (1) Admitted to intensive care unit: Plan: Admit to ICU/syncope/acute respiratory failure/bradycardia cardiac arrest- Continue on ventilator per protocol Serial CBC with differential, BMP, magnesium, phosphorus, LFTs, PT/PTT/INR Consult abrading machine tender and team (2) Respiratory failure: Plan: Respiratory failure/COVID-19 pneumonia/possible aspiration- Zosyn 4.5 g IV every 8 hours Azithromycin 500 mg IV daily Dexamethasone 6 mg IV every morning DuoNebs every 4 hours as needed (3) Bradycardic cardiac arrest: Plan: Order a complete echocardiogram (4) Syncope: Plan: Syncope- Bradycardia cardiac arrest, acute respiratory failure No other significant metabolic abnormality (5) COVID-19: Plan: See above (6) Other pulmonary embolism and infarction: Plan: Place heparin IV low-dose without bolus Holding warfarin while intubated (7) Cirrhosis: Plan: Cirrhosis/esophageal varices/portal hypertension/splenomegaly/gastric varices/ascites- Patient will likely need paracentesis this admission, and will therefore keep on heparin IV for ease of procedures (8) Esophageal varices: Plan: See above (9) Portal hypertension: Plan: See above (10) Splenomegaly: Plan: See above (11) Gastric varices: Plan: See above (12) Myelodysplastic disease: Plan: Follows in outpatient setting with hematology oncology Dr. Vergara (13) Reflux esophagitis: Plan: Placed on famotidine 20 mg IV every 12 hours History of Present Illness Chief Complaint: The patient was brought to the emergency department due to a syncopal episode, after which 911 was called, and since the patient was having agonal respirations, and significant bradycardia, shewas intubated in the field by prehospital personnel after being given Versed. Primary Care Provider: Shira Yarbrough MD The patient is a 66-year-old female with a past medical history including lactose intolerance, chronic diarrhea, vitamin D deficiency, reflux esophagitis, portal hypertension, pulmonary embolism and infarction, hyperlipidemia, diverticulosis, diaphragmatic hernia, splenomegaly, myelodysplastic disease, chronic anticoagulation with warfarin, cirrhosis, and ascites with history of recent paracentesis. Allergies Allergy/AdvReac Type Severity Reaction Status Date / Time No Known Allergies Allergy Verified 09/18/21 17:42 Home Medications Medication Instructions Recorded Confirmed Type cholecalciferol (vitamin D3) 50 2,000 unit PO HS 08/30/18 09/18/21 History mcg (2,000 unit) capsule (Vitamin D3) ruxolitinib 10 mg tablet (Jakafi) 10 mg PO BID 05/25/19 09/18/21 History 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 40 mg tablet,delayed 40 mg PO BID #180 tab 05/02/21 09/18/21 Rx release rivaroxaban 10 mg tablet (Xarelto) 10 mg PO QPM #90 tab 05/02/21 09/18/21 Rx propranolol 10 mg tablet 10 mg PO TID #270 tab 08/26/21 09/18/21 Rx citalopram 20 mg tablet (Celexa) 30 mg PO HS 09/10/21 09/18/21 History furosemide 20 mg tablet 20 mg PO DAILY 09/18/21 09/18/21 History Past Med/Surg History Medical History (Updated 09/18/21 @ 22:19 by Joe Odonnell MD) Anxiety Cirrhosis Depression Esophageal varices hx banding 2 years ago Gastric varices Hepatomegaly History of blood clots neck, liver > 20 years ago History of DVT (deep vein thrombosis) RLE - > 20 years ago History of pulmonary embolism > 20 years ago LUQ abdominal pain Myelodysplastic disease follows with Dr. Vergara On anticoagulant therapy Portal hypertension Splenomegaly Upper GI bleed hx Surgical History H/O shoulder surgery Dr. Cornejo for left shoulder manipulation hx History of bone marrow biopsy History of colonoscopy History of esophagogastroduodenoscopy (EGD) most recent 12/25/20 [place] History of liver biopsy History of tubal ligation Family History Father , age 44 Heart disease Myocardial infarction Mother Hypertension Sister Coronary heart disease Mood disorder Sister Mood disorder Sister Mood disorder Sister Mood disorder Sister Mood disorder Sister Mood disorder Sister Mood disorder Brother Alcohol abuse Son , age 26 MVA (motor vehicle accident) Grandmother (Maternal) Breast cancer Aunt Breast cancer Other No family history of adverse response to anesthesia Denies family history of Ovarian cancer Prostate cancer Colorectal cancer Social History Smoking Status: Never smoker Second Hand Exposure: No; Hx Alcohol Use: No Hx Substance Use: No Preferred Language: Maori Communication Ability: Effective [employer] Worker Required: No Beliefs That Will Affect Care: None marital status: Current Living Situation: Spouse current occupational status: retired Feels Safe at Home: Yes Childhood Exposure to Second-Hand Smoke: Yes Dental Care, Regularly: Yes Physical Activity Frequency: Does not Exercise Seatbelt Use: always Sunscreen Use: Yes Assistive Devices: None Review of Systems Review of Systems: Unobtainable due to endotracheal tube Physical Exam Physical Exam: The patient is sedated and intubated, normocephalic and atraumatic. And in no acute distress HEENT--PERRL, EOMI, mucous membranes and oropharynx dry. Neck--supple. No JVD. No bruits. Thyroid normal, trachea midline, no adenopathy. Heart--normal S1 and S2. No murmurs, rubs or gallops. Lungs--coarse breath sounds bilaterally. Abdomen--normal bowel sounds and soft. Mildly distended Extremities--no cyanosis or clubbing. No edema. Dermatologic--normal skin turgor, normal color, no rash Neurologic--limited exam Rheumatologic--limited exam Psychiatric--limited exam Results & Data Results & Data ([facility]) Vital Signs (Past 12 Hours) Vital Signs Temp Pulse Resp BP Pulse Ox 09/18/21 19:49 69 17 115/60 99 09/18/21 19:36 78 18 127/63 98 09/18/21 19:16 79 14 140/52 L 92 09/18/21 19:00 133/74 96 09/18/21 18:45 75 15 133/75 95 09/18/21 18:44 76 18 124/71 95 09/18/21 18:31 79 21 138/100 09/18/21 18:30 79 20 92 09/18/21 18:15 76 13 97 09/18/21 18:02 36.8 C 77 16 97 09/18/21 18:00 79 9 L 129/73 96 09/18/21 17:57 12 95 09/18/21 17:30 78 16 100/69 97 09/18/21 17:26 79 20 99 09/18/21 17:25 101/63 09/18/21 17:15 78 20 99 Laboratory Results Laboratory Results WBC 38.07 K/uL (4.8-10.8) H* 09/18/21 17: RBC 5.08 M/uL (4.2-5.4) 09/18/21 17:23 Hgb 13.2 g/dL (12.0-16.0) 09/18/21 17:23 POC Hgb 13.6 g/dl (12.0-16.0) 09/18/21 19:47 Hct 44.7 % (37-47) 09/18/21 17:23 POC Hct 40 % (37-47) 09/18/21 19:47 MCV 88.0 fL (80-100) 09/18/21 17: MCH 26.0 pg (25-34) 09/18/21 17:23 MCHC 29.5 g/dL (32-36) L 09/18/21 17:23 RDW Std Deviation 65.3 fL (36.4-46.3) H 09/18/21 17:23 RDW Coeff of Polina 21.1 % (11.5-14.5) H 09/18/21 17:23 Plt Count 439 K/uL (130-400) H 09/18/21 17:23 Absolute Nucleated RBC 8.01 K/uL (0-0) H 09/18/21 17:23 Nucleated RBC % (auto) 21.0 % 09/18/21 17:23 Neutrophils % (Manual) 33.3 % 09/18/21 17:23 Lymphocytes % (Manual) 36.7 % 09/18/21 17:23 Monocytes % (Manual) 7.5 % 09/18/21 17:23 Eosinophils % (Manual) 3.3 % 09/18/21 17:23 Basophils % (Manual) 2.5 % 09/18/21 17:23 Metamyelocytes % (Man) 10.0 % 09/18/21 17:23 Myelocytes % (Man) 6.7 % 09/18/21 17:23 Neutrophils # (Manual) 12.68 K/uL (1.4-6.5) H 09/18/21 17:23 Total Absolute Neuts 12.68 K/uL (1.4-6.5) H 09/18/21 17:23 Lymphocytes # (Manual) 13.97 K/uL (1.2-3.4) H 09/18/21 17:23 Total Abs Lymphocytes 13.97 K/uL (1.2-3.4) H 09/18/21 17:23 Monocytes # (Manual) 2.86 K/uL (0.11-0.59) H 09/18/21 17:23 Eosinophils # (Manual) 1.26 K/uL (0-0.5) H 09/18/21 17:23 Basophils # (Manual) 0.95 K/uL (0-0.2) H 09/18/21 17:23 Metamyelocytes # (Man) 3.81 K/uL (0-0) H 09/18/21 17:23 Myelocytes # (Manual) 2.55 K/uL (0-0) H 09/18/21 17:23 Polychromasia 1+ 09/18/21 17:23 Basophilic Stippling 1+ 09/18/21 17:23 Tear Drop Cells 2+ 09/18/21 17:23 PT 15.3 Seconds (9.0-12.0) H 09/18/21 17:23 INR 1.6 (0.9-1.1) H 09/18/21 17:23 APTT 36.6 Seconds (21.0-31.0) H 09/18/21 17:23 PTT Ratio 1.4 09/18/21 17:23 ABG pH 7.30 (7.35-7.45) L 09/18/21 20:08 ABG pCO2 43 mmHg (35-46) 09/18/21 20:08 ABG pO2 89 mmHg (80-95) 09/18/21 20:08 ABG HCO3 21 mmol/L (19-24) 09/18/21 20:08 ABG O2 Saturation 96.5 % (90-95) H 09/18/21 20:08 ABG Base Excess -5.8 mEq/L (-9-1.8) 09/18/21 20:08 Isak Test POS (Pos) 09/18/21 20:08 Barometric Pressure 729.1 mm/Hg 09/18/21 20:08 Oxygen Given 40% FiO2 09/18/21 20:08 POC Sodium 141 mmol/L (135-144) 09/18/21 19:47 Sodium 141 mmol/L (136-145) 09/18/21 17:23 POC Potassium 4.7 mmol/L (3.3-5.0) 09/18/21 19:47 Potassium 4.2 mmol/L (3.5-5.1) 09/18/21 17:23 POC Chloride 105 mmol/L (101-112) 09/18/21 19:47 Chloride 111 mmol/L (98-107) H 09/18/21 17:23 Carbon Dioxide 25 mmol/L (21-32) 09/18/21 17:23 POC Total CO2 26 mmol/L (24-31) 09/18/21 19:47 Anion Gap 5.0 (3-11) 09/18/21 17:23 POC Anion Gap 15.0 mmol/L (16-25) L 09/18/21 19:47 POC BUN 29 mg/dl (7-18) H 09/18/21 19:47 BUN 27 mg/dl (7-18) H 09/18/21 17:23 Creatinine 1.30 mg/dl (0.6-1.2) H 09/18/21 17:23 POC Creatinine 1.2 mg/dl (0.6-1.3) 09/18/21 19:47 Est Cr Clr Drug Dosing 40.7 ml/min 09/18/21 17:23 Est GFR ( Amer) 50.2 ml/min 09/18/21 17:23 Est GFR (Non-Af Amer) 43.3 ml/min 09/18/21 17:23 BUN/Creatinine Ratio 20.7 (10-20) H 09/18/21 17:23 Glucose 102 mg/dl (70-99) H 09/18/21 17:23 POC Glucose (other) 103 mg/dl (70-99) H 09/18/21 19:47 Lactate 0.8 mmol/L (0.4-2.0) 09/18/21 20:08 Calcium 8.2 mg/dl (8.5-10.1) L 09/18/21 17:23 POC Ioniz Calcium Jerald 1.17 mmol/l (1.12-1.32) 09/18/21 19:47 Magnesium 2.3 mg/dl (1.8-2.4) 09/18/21 17:23 Total Bilirubin 1.3 mg/dl (0.2-1) H 09/18/21 17:23 AST 101 U/L (15-37) H 09/18/21 17:23 ALT 48 (12-78) 09/18/21 17:23 Alkaline Phosphatase 366 U/L (45-117) H 09/18/21 17:23 Troponin I 0.021 ng/ml (0-0.045) 09/18/21 17:23 Total Protein 6.6 gm/dl (6.4-8.2) 09/18/21 17:23 Albumin 3.3 gm/dl (3.4-5.0) L 09/18/21 17:23 Globulin 3.3 gm/dl (2.5-4.0) 09/18/21 17:23 Albumin/Globulin Ratio 1.0 (0.9-2) 09/18/21 17:23 Procalcitonin 0.09 ng/ml (0-0.5) 09/18/21 17:23 Urine Color Yellow 09/18/21 18:55 Urine Appearance Cloudy (Clear) A 09/18/21 18:55 Urine pH 8.5 (4.5-7.5) H 09/18/21 18:55 Ur Specific [place] 1.026 (1.000-1.030) 09/18/21 18:55 Urine Protein 4+ (Negative) H 09/18/21 18:55 Urine Glucose (UA) Trace (Negative) H 09/18/21 18:55 Urine Ketones Negative (Negative) 09/18/21 18:55 Urine Blood 3+ (Negative) H 09/18/21 18:55 Urine Nitrite Negative (Negative) 09/18/21 18:55 Urine Bilirubin Negative (Negative) 09/18/21 18:55 Urine Urobilinogen Negative (Negative) 09/18/21 18:55 Ur Leukocyte Esterase Negative (Negative) 09/18/21 18:55 Urine WBC (Auto) >30 /hpf (0-5) H 09/18/21 18:55 Urine RBC (Auto) >30 /hpf (0-4) H 09/18/21 18:55 U Hyaline Cast (Auto) 10-30 /lpf (0-5) H 09/18/21 18:55 U Epithel Cells (Auto) 10-20 /lpf (0-5) H 09/18/21 18:55 Urine Bacteria (Auto) Negative (Negative) 09/18/21 18:55 Urine Yeast Not Reportable 09/18/21 18:55 Urine Opiates Screen Neg (Neg) 09/18/21 18:55 Ur Methadone, Qual Neg (Neg) 09/18/21 18:55 Urine Barbiturates Neg (Neg) 09/18/21 18:55 Ur Phencyclidine (PCP) Neg (Neg) 09/18/21 18:55 U Amphetamin/Meth Scrn Neg (Neg) 09/18/21 18:55 MDMA (Ecstasy) Screen Neg (Neg) 09/18/21 18:55 U Benzodiazepines Scrn Pos (Neg) H 09/18/21 18:55 Ur Cocaine Metabolite Neg (Neg) 09/18/21 18:55 U Marijuana (THC) Screen Neg (Neg) 09/18/21 18:55 Ethyl Alcohol mg/dL < 3.0 mg/dl (0-3) 09/18/21 20:09 SARS-CoV-2 (PCR) POSITIVE (Negative) A* 09/18/21 18:16 Influenza Type A (PCR) Negative (Neg) 09/18/21 18:16 Influenza Type B (PCR) Negative (Neg) 09/18/21 18:16 RSV (RT-PCR) Negative (Neg) 09/18/21 18:16 Blood Type A Positive 09/18/21 17:23 Antibody Screen NEGATIVE 09/18/21 17:23 Impressions Chest X-Ray 09/18/21 17:22 XR chest 1V portable CLINICAL HISTORY: Stroke Like Symptoms. Evaluate cardiopulmonary status COMPARISON STUDY: 01/05/2018 TECHNIQUE: 1 view of the chest FINDINGS: Single frontal view of the chest demonstrates the heart to be enlarged. Endotracheal tube is in place with its tip approximately 3.8 cm above the yoav. Patchy interstitial and alveolar opacities bilaterally characteristic of a viral type pneumonitis and probable Covid 19 pneumonia. Symptoms There is no evidence for pleural effusion. There is no evidence for vascular congestion. There is no acute osseous pathology. IMPRESSION: Patchy interstitial and alveolar opacities bilaterally characteristic of a viral type pneumonitis and probable Covid 19 pneumonia. Endotracheal tube in anatomic position. ACT 112: Negative or not required by law. Electronically signed by: Dylon Echeverria M.D. 09/18/2021 6:[address] 09/18/21 17:22 CT head/brain wo con CLINICAL HISTORY: Stroke Like Symptoms . Patient unresponsive COMPARISON STUDY: No previous studies for comparison. CT DOSE: TECHNIQUE: Standard CT of the Brain was performed without IV contrast. A dose lowering technique was utilized adhering to the principles of ALARA. FINDINGS: Extraaxial space: There is no evidence for subdural hematoma. There are no extra-axial fluid collections. Ventricles and cisterns: The ventricles are normal in size and configuration. There is no evidence for midline shift or mass effect. Parenchyma: There is no subarachnoid or intraparenchymal hemorrhage. There is no evidence for an acute infarct or cerebral edema. There is homogeneous attenuation of the brain parenchyma. There are no gross mass lesions. Osseous structures: There is no evidence for an acute fracture. There is mucosal thickening present involving the left maxillary antrum with mucosal polyp versus inclusion cyst present. The remaining visualized paranasal sinuses are clear. The mastoid air cells are clear bilaterally. Soft tissues: There is no evidence for focal soft tissue swelling. IMPRESSION: No acute intracerebral pathology. Chronic left maxillary sinusitis. ACT 112: Negative or not required by law. Electronically signed by: Dylon Echeverria M.D. 09/18/2021 6:11 PM Head CTA 09/18/21 17:22 CT angio head w con CLINICAL HISTORY: Stroke Like Symptoms . Patient unresponsive COMPARISON STUDY: No previous studies for comparison. CT DOSE: TECHNIQUE: CT Angio of the brain was performed.followed by image post processing with coronal, and sagittal MIP reformats. Contrast Volume: Omnipaque 320, 120 ml FINDINGS: Vascular findings: There is normal enhancement within the internal carotid arteries bilaterally. There is normal enhancement noted within the anterior, middle and posterior cerebral arteries. Nonvascular findings: There is homogeneous attenuation of the brain parenchyma bilaterally. There is no evidence for an acute infarct or cerebral edema. IMPRESSION: Negative CT angiogram of the brain with contrast. ACT 112: Negative or not required by law. Electronically signed by: Dylon Echeverria M.D. 09/18/2021 6:13 PM Neck CTA 09/18/21 17:22 CT angio neck with con CLINICAL HISTORY: Stroke Like Symptoms . Patient unresponsive COMPARISON STUDY: No previous studies for comparison. CT DOSE: TECHNIQUE: CT Angio of the neck was performed.followed by image post processing with coronal, and sagittal MIP reformats.. Stenosis assessment by NASCET criteria. Contrast Volume: Optiray 320, 120 ml FINDINGS: Vascular findings: Right common carotid artery: Patent without significant stenosis. Right internal carotid artery: Patent without significant stenosis. Right vertebral artery: Patent without significant stenosis. Left common carotid artery: Patent without significant stenosis. Left internal carotid artery: Patent without significant stenosis. Left vertebral artery: Patent without significant stenosis. Nonvascular findings: Endotracheal tube is in place. The parotid and submandibular salivary glands appear normal. There is no enl arged cervical adenopathy noted. The airway appears patent. The thyroid gland appears within normal limits. The lung apices appear within normal limits. Impression: Negative CT angiogram of the neck with contrast. ACT 112: Negative or not required by law. Electronically signed by: Dylon Echeverria M.D. 09/18/2021 6:16 PM Chest CTA 09/18/21 17:36 CT angio chest PE protocol CLINICAL HISTORY: Patient unresponsive. Evaluate for pulmonary embolus COMPARISON STUDY: No previous studies for comparison. CT DOSE: TECHNIQUE: CT Angio of the chest was performed.followed by image post processing with coronal, and sagittal MIP reformats. Contrast Volume: Optiray 320, 120 ml FINDINGS: The study is limited by breathing motion artifact. Vasculature: There is homogeneous perfusion of the pulmonary vasculature bilaterally. No intraluminal filling defects or evidence for pulmonary embolus is seen. Airway: Endotracheal tube is in place. Lungs: There is again breathing motion artifact present. There is bilateral apical pleural scarring seen. There is also linear atelectasis versus scarring involving both lower lobes. The lungs are otherwise clear of acute alveolar opacities, air bronchograms or pulmonary nodules. Pleura: There is no evidence for pleural effusion. There is no evidence for pneumothorax. Mediastinum: There is no evidence for pathologic adenopathy. The heart size is within normal limits. The thoracic aorta is within normal limits. There is no evidence for pericardial effusion. Osseous structures: There is no acute osseous pathology. Impression: 1. No CTA evidence for pulmonary embolus. 2. The study is limited by patient breathing artifact with bilateral apical pleural scarring and atelectasis versus scarring involving both lower lobes. 3. No confluent alveolar opacities. 4. Mild cardiomegaly. ACT 112: Negative or not required by law. Electronically signed by: Dylon Echeverria M.D. 09/18/2021 6:40 PM Abdomen/Pelvis CT 09/18/21 17:41 CT abd pelvis IV con only CLINICAL HISTORY: Patient unresponsive. History of cirrhosis, splenomegaly and ascites. COMPARISON STUDY: 07/08/2021 CT DOSE: 1990.19 mGy.cm TECHNIQUE: Standard CT of the Abdomen and Pelvis was performed with IV contrast. A dose lowering technique was utilized adhering to the principles of ALARA. Contrast Volume: Optiray 320, 120 ml. The patient did not receive oral contrast. FINDINGS: Abdominal cavity: Compared to the previous examination, moderate abdominal and pelvic ascites is again seen which has slightly improved since the previous examination. There are extensive gastric and splenic varices present. Liver: There is again separation the liver margin with a appearance characteristic of cirrhosis. There is no evidence for enhancing mass lesion. Spleen: There is homogeneous attenuation of the splenic parenchyma. There is no enhancing mass lesion. However, there is again marked splenomegaly. Pancreas: There is homogeneous attenuation of the pancreatic parenchyma. There is no evidence for mass lesion or peripancreatic fluid collection. Gall Bladder: The gallbladder is partially contracted with cholelithiasis again seen. Adrenal glands: The adrenal glands are normal in size and attenuation. There is no evidence for enhancing mass lesion. Kidneys: There is homogeneous attenuation of the renal parenchyma bilaterally. There is no evidence for renal calculus or hydronephrosis. There is no evidence for enhancing mass. Bowel: The bowel loops are normally placed within the abdomen and pelvis without evidence for dilatation or obstruction. There is no evidence for mass lesion. There are no inflammatory changes present. There is no evidence for free air. Bladder: The bladder is within normal limits with no evidence for focal mass, calculus or diverticulum. : There is no evidence for pelvic mass or adenopathy. There is no evidence for pelvic ascites. Vasculature: There is no evidence for aneurysmal dilatation of the abdominal aorta. Osseous structures: There is no acute osseous pathology. There is again increased bony sclerosis throughout the imaged bones which is unchanged. IMPRESSION: 1. Compared to previous examination, there is no significant interval change with only slight interval decrease in moderate abdominal and pelvic ascites. 2. There is again cirrhosis of liver with marked splenomegaly and extensive gastric and splenic varices. 3. There is again evidence for cholelithiasis. 4. No other evidence for acute intra-abdominal or pelvic abnormality. 5. Additional nonacute findings are delineated above. ACT 112: Negative or not required by law. Electronically signed by: Dylon Echeverria M.D. 09/18/2021 6:48 PM Code Status & VTE Plan Code Status Full code VTE Prophylaxis Plan VTE Prophylaxis will be ordered: Yes Critical Care Time 50 minutes PG Care Time/CCT Total # of Minutes Spent Total Time Spent with Patient: Total time spent is greater than 50% in coordination of care (as documented) at patient's floor/unit and/or counseling patient: Coding Level of Care Code 94624 Initial Inpt Care Lvl 3 Diagnoses Admitted to intensive care unit Z78.9 Esophageal varices I85.00 Other pulmonary embolism and infarction I26.99 Portal hypertension K76.6 Reflux esophagitis K21.0 Syncope R55 Syncope type: unspecified Respiratory failure J96.00 Chronicity: acute Respiratory failure complication: unspecified whether with hypoxia or hypercapnia Bradycardic cardiac arrest R00.1; I46.2 Myelodysplastic disease C94.6 Splenomegaly R16.1 Cirrhosis K74.60 Gastric varices I86.4 COVID-19 U07.1 (1) Syncope Syncope type: unspecified Qualified Code(s): R55 - Syncope and collapse (2) Respiratory failure Chronicity: acute Respiratory failure complication: unspecified whether with hypoxia or hypercapnia Qualified Code(s): J96.00 - Acute respiratory failure, unspecified whether with hypoxia or hypercapnia
[2021-09-18 20:37] LABS: Base Excess ABG -5.8 mEq/L (-9-1.8); HCO3 ABG 21 mmol/L (19-24); Oxygen Saturation ABG 96.5 % (90-95); PCO2 ABG 43 mmHg (35-46); PO2 ABG 89 mmHg (80-95)
[2021-09-18 20:41] LABS: Allen Test POS (Pos)
[2021-09-18 20:43] LABS: Amphetamines+Metham, Urine Neg (Neg); Barbiturates, Urine Neg (Neg); Benzodiazepine, Urine Pos (Neg); Cocaine, Urine Neg (Neg); MDMA (Ecstacy), Urine Neg (Neg); Methadone, Urine Neg (Neg); Opiate, Urine Neg (Neg); Phencyclidine, Urine Neg (Neg)
[2021-09-18] MEDS ORDERED: Heparin IV Adult Wt-Based Low-Dose *NO* Bolus Protocol IV SCH (20:45)
[2021-09-18] MEDS ORDERED: fentaNYL citrate 100 MCG/2 ML VIAL IV PRN (22:07)
[2021-09-18] MEDS ORDERED: ICU PROTOCOL FOR HYPERGLYCEMIA PRN (22:17)
--- NOTE | 2021-09-18 22:24 | Critical Care Consultation ---
Date of Consultation September 18, 2021 Assessment & Plan (1) Admitted to intensive care unit: Reason Critically Ill: 66-year-old male presented to the emergency department with syncope and collapse he was found to be bradycardic and hypoxic in the field. She was intubated and temporarily transcutaneously paced which did resolve her bradycardia. Patient found to have COVID-19 infection and is currently requiring ventilator management and ongoing evaluation in the setting of syncope and collapse with COVID-19 infection. NEURO - * CAM ICU: Unable to assess * Sedation: Propofol * Pain: Fentanyl PRN * Syncope: * Of uncertain etiology at this point. * Question collapse 2/2 symptomatic bradycardia. * Patient reportedly had RIGHT sided gaze on initial assessment which has since resolved. She was also w/ agonal breathing. * CT/CTA Head/Neck w/o acute findings. * ?Possible seizure event, however patient w/o history. * Exam unremarkable at this point. * Continue w/ Propofol gtt for now. * Will add Tox/EtOH screens as well. * Hope for early extubation. CARDIAC/VASCULAR - * Symptomatic Bradycardia: * Found down with "significant bradycardia" in the field. Was transcutaneously paced for a short time. During episode, patient was also noted to have RIGHT sided gaze, agonal breathing, and hypoxemia. * ?? If bradycardia is the primary cause vs. profound hypoxemia driving near arrest with bradycardia vs. acute neurological event (i.e. seizure) resulting in all symptoms. Regardless, symptoms of bradycardia have resolved to this point. Will monitor her close on telemetry for any events. * Hold propranolol for now. * EKG: NSR @ [address]/T-wave changes. QTc 490 ms. * Monitor on telemetry. RESPIRATORY - * Hypoxic Respiratory Failure: * During periarrest. * Intubated in the field. * Ventilator settings minimal at this time. * AB.30/43/89/21 * Vent: AC 20/360/5/40% * Will wean down ventilator settings as tolerated. * CXR with mild patchy interstitial opacities. CTA actually without significant findings otherwise. * Hypoxia less likely driven by pulmonary event. More specifically, less likely due to current Covid infection. * Hopeful for sedation vacation in AM w/ early extubation. GI/NUTRITION - * Cirrhosis: * Per review of records, patient currently being evaluated at [facility]. Recent appointment on 09/05. New development of ascites. Paracentesis on 09/10 w/ normal appearing fluid. * h/o Esophageal varices w/ prior banding. Recent EGD on 01/09 w/o findings consistent w/ varices. * Remains w/ portal HTN. * Currently on Propranolol and Lasix. * Concern for "Brain fog" during recent hepatology appointment. Suggestion of starting lactulose. * Will add Ammonia level at this time. * Thankfully, patient's LFTs, INR not significantly elevated at this time. * Prophylaxis: Famotidine RENAL/LYTES - * RAFIQ: * Likely 2/2 transient bradycardia w/ hypotension. * Received NSS bolus already. * Judicious use of IVF in the cirrhotic patient w/ ascites. * No significant electrolyte derangements. - * Wright in place - Strict I&Os. ENDO - * No h/o DM or Thyroid Dz * BSGs per unit protocol. ISS --> gtt per unit policy. HEME - * Profound Leukocytosis: * While the patient does not appear to have significant overt infectious cause, certainly agree with covering w/ antibiotics for now. Especially in the patient who underwent paracentesis recently. * Certainly may be stress reaction which may further lend itself to more of a neurologic event that may have occurred. * Again, patient does have h/o Myelodysplastic disease which has been managed with Ruxolitinub for many years. Patient's WBCs are still much higher than her typical baseline, however. * h/o DVTs/PEs/Protein S Deficiency: * Currently treated with Xarelto in the outpatient. * Agree w/ Heparin gtt as the patient is high risk VTE. ID - * Covid-19 Infection: * Unlikely resulting in the patient's current symptoms. CTA clear. * Leukocytosis w/o elevated Lactate or PCT. * Some concerns in the cirrhotic patient w/ ascites and recent tap, but her exam is not impressive at this point. * Continue w/ SBP coverage for now. * Likely able to deescalate antibiotics rapidly. * Blood/Urine/Sputum cultures pending. LINES/IV ACCESS - * PIVs x2 * LEFT EJ * ETT * Wright DVT PROPHYLAXIS - * Heparin gtt * SCDs I have personally spent 55 minutes of critical care time in the direct management of this patient. This is a life/limb threatening event. This includes time spent evaluating patient, direct bedside care, chart review, placing orders, interpretation of diagnostic studies, discussion with consultants, patient, and family members, as well as other required patient management activities. This time is exclusive of all separately billable procedures, and teaching time and separate from and in addition to any other critical care service time. Thank you for allowing us to participate in the care of this patient. Please refer to my attending physician's documentation for any further recommendations. (2) Symptomatic bradycardia: (3) Respiratory failure: (4) Syncope: (5) COVID-19: (6) Cirrhosis: (7) Esophageal varices: (8) Portal hypertension: (9) Ascites: (10) Myelodysplastic disease: (11) Pulmonary emboli: (12) Protein S deficiency: History of Present Illness Attending Physician: Joe Odonnell MD History of Present Illness Patient is a 66-year-old female with a significant past medical history of myelodysplastic disease receiving Ruxolitinib, prior history significant for multiple DVTs and pulmonary emboli currently anticoagulated on Xarelto, protein S deficiency, cirrhosis, portal hypertension, prior history of esophageal varices, ascites, and hepatic encephalopathy currently being evaluated by [facility] for transplant services. Patient had a syncopal event with collapse earlier this afternoon. On EMS arrival, the patient was reportedly bradycardic, hypoxic, and cyanotic appearing. She was apparently externally paced and intubated in the field. Eventually, she did not require transcutaneous pacing by the time she arrived in the emergency department. Unaware if she had received any IV medications in route. [facility] was noted to have a significant leukocytosis with a white blood cell count in excess of 38,000. Slight RAFIQ noted. Chest x-ray suggestive of bilateral multifocal infiltrates. CTA without PE and with minimal findings of infiltrative changes. Patient remains intubated and sedated with propofol. CT and CTA of head and neck were unremarkable. Patient did reportedly have RIGHT-sided gaze on initial assessment in the field. This has since resolved. Upon evaluation in room 202, the patient is intubated and sedated. She does respond to tactile stimuli. She moves all 4 extremities independently. Unable to contribute to HPI. Allergies Allergy/AdvReac Type Severity Reaction Status Date / Time No Known Allergies Allergy Verified 09/18/21 17:42 Home Medications Medication Instructions Recorded Confirmed Type cholecalciferol (vitamin D3) 50 2,000 unit PO HS 08/30/18 09/18/21 History mcg (2,000 unit) capsule (Vitamin D3) ruxolitinib 10 mg tablet (Jakafi) 10 mg PO BID 05/25/19 09/18/21 History 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 40 mg tablet,delayed 40 mg PO BID #180 tab 05/02/21 09/18/21 Rx release rivaroxaban 10 mg tablet (Xarelto) 10 mg PO QPM #90 tab 05/02/21 09/18/21 Rx propranolol 10 mg tablet 10 mg PO TID #270 tab 08/26/21 09/18/21 Rx citalopram 20 mg tablet (Celexa) 30 mg PO HS 09/10/21 09/18/21 History furosemide 20 mg tablet 20 mg PO DAILY 09/18/21 09/18/21 History Patient History Medical History Anxiety Cirrhosis Depression Esophageal varices hx banding 2 years ago Gastric varices Hepatomegaly History of blood clots neck, liver > 20 years ago History of DVT (deep vein thrombosis) RLE - > 20 years ago History of pulmonary embolism > 20 years ago LUQ abdominal pain Myelodysplastic disease follows with Dr. Vergara On anticoagulant therapy Portal hypertension Splenomegaly Upper GI bleed hx Surgical History H/O shoulder surgery Dr. Cornejo for left shoulder manipulation hx History of bone marrow biopsy History of colonoscopy History of esophagogastroduodenoscopy (EGD) most recent 12/25/20 [place] History of liver biopsy History of tubal ligation Family History Father , age 44 Heart disease Myocardial infarction Mother Hypertension Sister Coronary heart disease Mood disorder Sister Mood disorder Sister Mood disorder Sister Mood disorder Sister Mood disorder Sister Mood disorder Sister Mood disorder Brother Alcohol abuse Son , age 26 MVA (motor vehicle accident) Grandmother (Maternal) Breast cancer Aunt Breast cancer Other No family history of adverse response to anesthesia Denies family history of Ovarian cancer Prostate cancer Colorectal cancer Social History Smoking Status: Never smoker Second Hand Exposure: No; Hx Alcohol Use: No Hx Substance Use: No Preferred Language: Icelandic Communication Ability: Effective 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 GENERAL - 66-year-old female appearing her stated age who is in no acute distress. Intubated and sedated. SKIN - Without rashes. HEAD - NC/AT. EYES - PERRL with EOMI bilaterally. Sclera anicteric. EARS - No deformities of external structures noted on gross examination bilaterally. NOSE - Midline and without cyanosis. No epistaxis or purulent drainage noted. MOUTH/OROPHARYNX - ET Tube in place. Without perioral cyanosis. Buccal mucosa pink and moist. NECK - Neck with FROM. Supple to palpation. No lymphadenopathy noted. No nuchal rigidity. LUNGS - Chest wall symmetric without accessory muscle use, intercostals retractions, or central cyanosis. Normal vesicular breath sounds CTA B/L. No wheezes, rales, or rhonchi appreciated. CARDIAC - RRR with S1/S2. No murmur, rubs, or gallops appreciated. ABDOMEN - Abdominal contour protuberant without pulsations or visible masses. BS normoactive all four quadrants. Diffuse ascites with fluid shift noted on exam. EXTREMITIES - No clubbing or peripheral cyanosis. No pretibial edema present. +3/5 radial and dorsalis pedis pulses palpated throughout. NEUROLOGIC - Cranial nerves II through XII grossly intact. Unable to focal neurological deficits on exam. Moves all 4 extremities equally. Limited exam secondary to sedation. Results & Data Results & Data ([facility]) Vital Signs (Past 12 Hours) Vital Signs Temp Pulse Resp BP Pulse Ox 09/18/21 21:55 65 20 100 09/18/21 21:02 68 19 102/65 98 09/18/21 20:45 68 21 107/64 100 09/18/21 20:30 68 21 107/56 L 100 09/18/21 20:20 67 21 100/58 L 99 09/18/21 19:52 67 21 98 09/18/21 19:49 69 17 115/60 99 09/18/21 19:36 78 18 127/63 98 09/18/21 19:16 79 14 140/52 L 92 09/18/21 19:00 133/74 96 09/18/21 18:45 75 15 133/75 95 09/18/21 18:44 76 18 124/71 95 09/18/21 18:31 79 21 138/100 09/18/21 18:30 79 20 92 09/18/21 18:15 76 13 97 09/18/21 18:02 36.8 C 77 16 97 09/18/21 18:00 79 9 L 129/73 96 09/18/21 17:57 12 95 09/18/21 17:30 78 16 100/69 97 09/18/21 17:26 79 20 99 09/18/21 17:25 101/63 09/18/21 17:15 78 20 99 Coding Level of Care Code Critical Care 1st 30-74 mins Diagnoses Admitted to intensive care unit Z78.9 Symptomatic bradycardia R00.1 Respiratory failure J96.00 Chronicity: acute Respiratory failure complication: unspecified whether with hypoxia or hypercapnia Syncope R55 Syncope type: unspecified COVID-19 U07.1 Cirrhosis K74.60 Esophageal varices I85.00 Portal hypertension K76.6 Ascites R18.8 Myelodysplastic disease C94.6 Pulmonary emboli I26.99 Protein S deficiency D68.59 Time Spent (min) 55 (1) Respiratory failure Chronicity: acute Respiratory failure complication: unspecified whether with hypoxia or hypercapnia Qualified Code(s): J96.00 - Acute respiratory failure, unspecified whether with hypoxia or hypercapnia (2) Syncope Syncope type: unspecified Qualified Code(s): R55 - Syncope and collapse
[2021-09-18] MEDS: FAMOTIDINE 20 MG in SYRINGE 3 ML IV SCH (23:55)
[2021-09-18] MEDS: HEPARIN SODIUM/DEXTROSE 25,000 UNITS/500 ML BAG IV SCH (23:55)
[2021-09-19] MEDS: propofoL 1,000 MG/100 ML VIAL IV SCH ×2 (00:13→07:31)
[2021-09-19] MEDS: PIPERACILLIN/TAZOBACTAM 3.375 GM in DEXTROSE 5% 100 ML IV SCH ×2 (01:58→09:02)
[2021-09-19 03:56] LABS: iSTAT Allen Test Pass; iSTAT Art Bld Gas pCO2 Correct 33 mmHg (35-46); iSTAT Art Bld Gas pH Corrected 7.432 (7.35-7.45); iSTAT Arterial Blood Gas HCO3 22 meg/L (19-24); iSTAT Arterial Blood Gas pCO2 33 mmHg (35-46); iSTAT Arterial Blood Gas pH 7.43 (7.35-7.45); iSTAT Arterial Blood Gas pO2 87 mmHg (80-95); iSTAT Arterial Blood Gas pO2 C 87; iSTAT Carbon Dioxide 23 mmol/L (24-31); iSTAT FiO2 35 %; iSTAT Hematocrit 31 % (37-47); iSTAT Hemoglobin 10.5 g/dl (12.0-16.0); iSTAT Potassium 4.3 mmol/L (3.3-5.0); iSTAT Site R Radial; iSTAT Sodium 141 mmol/L (135-144)
[2021-09-19] MEDS ORDERED: NORMOSOL-R 1,000 ML IV SCH (04:30)
[2021-09-19] MEDS ORDERED: STAT IV Infusion **Titration per Protocol STA (05:10)
[2021-09-19] MEDS ORDERED: NOREPINEPHRINE/D5W 8 MG/508 ML BAG IV SCH (05:15)
[2021-09-19] MEDS ORDERED: AZITHROMYCIN 500 MG in DEXTROSE 5% 250 ML IV SCH (06:00)
[2021-09-19 06:39] LABS: Partial Thromboplastin Ratio 1.3; Partial Thromboplastin Time 33.7 Seconds (21.0-31.0)
[2021-09-19 06:59] LABS: BUN Creatinine Ratio 23.2 (10-20); Calcium 8.1 mg/dl (8.5-10.1); Creatinine Clr Calc Pharmacy 29.8 ml/min; Est GFR (African American) 39.7 ml/min; Est GFR (Non-African American) 34.2 ml/min; Magnesium 2.2 mg/dl (1.8-2.4); Potassium 4.2 mmol/L (3.5-5.1)
[2021-09-19 07:01] LABS: Bilirubin,Total 1.7 mg/dl (0.2-1); Phosphorus 6.2 mg/dl (2.5-4.9); Total Protein 5.6 gm/dl (6.4-8.2)
[2021-09-19 07:17] LABS: Hematocrit (blood only) 37.1 % (37-47); Hemoglobin 11.4 g/dL (12.0-16.0); Mean Corpuscular Hemoglobin 26.4 pg (25-34); Mean Corpuscular Hgb Conc 30.7 g/dL (32-36); Mean Corpuscular Volume 85.9 fL (80-100); Nucleated RBC # (auto) 0.43 K/uL (0-0); Nucleated RBC % (auto) 3.2 %; Platelet Count 198 K/uL (130-400); RDW Standard Deviation 63.7 fL (36.4-46.3); Red Blood Count 4.32 M/uL (4.2-5.4); White Blood Count 13.37 K/uL (4.8-10.8)
[2021-09-19 07:26] LABS: ALC (manual) 2.25 K/uL (1.2-3.4); ANC (manual) 8.29 K/uL (1.4-6.5); Anisocytosis Present; Basophils # (manual) 0.47 K/uL (0-0.2); Basophils % (manual) 3.5 %; Eosinophils # (manual) 0.36 K/uL (0-0.5); Eosinophils % (manual) 2.7 %; Giant Platelets 1+; Lymphocytes # (manual) 2.25 K/uL (1.2-3.4); Lymphocytes % (manual) 16.8 %; Metamyelocytes # (manual) 0.71 K/uL (0-0); Metamyelocytes % (manual) 5.3 %; Monocytes # (manual) 0.83 K/uL (0.11-0.59); Monocytes % (manual) 6.2 %; Myelocytes # (manual) 0.47 K/uL (0-0); Myelocytes % (manual) 3.5 %; Neutrophils # (manual) 8.29 K/uL (1.4-6.5); Ovalocytes 1+; Platelet Estimate Increased (Normal); Tear Drop Cells 2+
--- NOTE | 2021-09-19 08:07 | XRay Report ---
XR chest 1V portable CLINICAL HISTORY: Status post intubation. Follow-up interstitial and alveolar opacities. COMPARISON STUDY: 09/18/2021 TECHNIQUE: 1 view of the chest FINDINGS: Single frontal view of the chest demonstrates the heart size to be mildly enlarged. Endotracheal tube is again seen and unchanged. Enteric catheter is also in place but its tip cannot be visualized. Com pared to the previous examination, patchy interstitial and alveolar opacities are again seen and esse ntially unchanged. There is blunting left costophrenic angle suspicious for small left pleural effusi on. There is no evidence for vascular congestion. There is no acute osseous pathology. IMPRESSION: No significant interval change in bilateral interstitial and alveolar opacities. There is suspicion of small left pleural effusion. ACT 112: Negative or not required by law. Electronically signed by: Dylon Echeverria M.D. 09/19/2021 8:05 AM
--- NOTE | 2021-09-19 08:40 | Critical Care Progress Note ---
Date of Service September 19, 2021 Assessment & Plan (1) Admitted to intensive care unit: Plan: Reason Critically Ill: 66-year-old male presented to the emergency department with syncope and collapse he was found to be bradycardic and hypoxic in the field. She was intubated and temporarily transcutaneously paced which did resolve her bradycardia. Patient found to have COVID-19 infection and is currently requiring ventilator management and ongoing evaluation in the setting of syncope and collapse with COVID-19 infection. NEURO - * Sedation: Propofol: Discontinue * Pain: Fentanyl PRN: Discontinue Encephalopathy * Difficulty with remembering recent events * Question whether this could be seizure related will will consider EEG and possibly MRI if continues after hopefully correcting for ammonia * Syncope: * Of uncertain etiology at this point. * Question collapse 2/2 symptomatic bradycardia. * CT/CTA Head/Neck w/o acute findings. CARDIAC/VASCULAR - * Symptomatic Bradycardia: Resolved * Found down with "significant bradycardia" in the field. Was transcutaneou sly paced for a short time. During episode, patient was also noted to have RIGHT sided gaze, agonal breathing, and hypoxemia. * ?? If bradycardia is the primary cause vs. profound hypoxemia driving near arrest with bradycardia vs. acute neurological event (i.e. seizure) resulting in all symptoms. Regardless, symptoms of bradycardia have resolved to this point. Will monitor her close on telemetry for any events. * Syncope * Prolonged QT -Holding QT prolonging medication -Discontinue a Zithromax RESPIRATORY - * Hypoxic Respiratory Failure: Resolved * During periarrest. * Intubated in the field. * Extubated this morning GI/NUTRITION - * Cirrhosis: * Per review of records, patient currently being evaluated at [facility]. Recent appointment on 09/05. New development of ascites. Paracentesis on 09/10 w/ normal appearing fluid. * h/o Esophageal varices w/ prior banding. Recent EGD on 01/09 w/o findings consistent w/ varices. * Remains w/ portal HTN. * Currently on Propranolol and Lasix. * Concern for "Brain fog" during recent hepatology appointment. Starting lactulose. * Recheck ammonia * Prophylaxis: Home regimen PPI twice daily RENAL/LYTES - * RAFIQ: * Likely 2/2 transient bradycardia w/ hypotension * No significant electrolyte derangements. - * Wright in place - Strict I&Os. ENDO - * No h/o DM or Thyroid Dz * BSGs per unit protocol. ISS --> gtt per unit policy. HEME - * Profound Leukocytosis: * While the patient does not appear to have significant overt infectious cause, certainly agree with covering w/ antibiotics for now. Especially in the patient who underwent paracentesis recently. * Certainly may be stress reaction which may further lend itself to more of a neurologic event that may have occurred. * Again, patient does have h/o Myelodysplastic disease which has been managed with Ruxolitinub for many years. Patient's WBCs are still much higher than her typical baseline, however. * h/o DVTs/PEs/Protein S Deficiency: * Currently treated with Xarelto in the outpatient. * Continue heparin infusion. ID - * Covid-19 Infection: * Unlikely resulting in the patient's current symptoms. CTA clear. * Leukocytosis w/o elevated Lactate or PCT. * Some concerns in the cirrhotic patient w/ ascites and recent tap, but her exam is not impressive at this point. * Discontinue all antibiotics * Blood/Urine/Sputum cultures pending. LINES/IV ACCESS - * PIVs x2 * LEFT EJ: Discontinue * ETT extubated today * Wright DVT PROPHYLAXIS - * Heparin gtt * SCDs Patient greater than 6 hours from extubation largely asymptomatic with the exception of short-term memory issues will sign off and stable for downgrade out of ICU continue Covid precautions. Discussed this with the hospitalist. (2) Symptomatic bradycardia: (3) Respiratory failure: (4) Syncope: (5) COVID-19: (6) Cirrhosis: (7) Esophageal varices: (8) Portal hypertension: (9) Ascites: (10) Myelodysplastic disease: (11) Pulmonary emboli: (12) Protein S deficiency: Admission and Anticipated Discharge Date Admission Date: September 18, 2021 Subjective During my evaluation patient was pleasant eating lunch with no recollection over the past several hours did not remember extubation nor breathing tube. Review of Systems Review of Systems: Denies previous history nor complaint Physical Exam Physical Exam: General: Alert. nontoxic. Oriented to self place and time Neuro: Cranial nerves II through XII grossly intact, able to spell world backwards, only remembers 1 objects on recall Skin: Warm, dry, Head: Atraumatic Ears, nose, mouth and throat: airway patent Cardiovascular: Normal peripheral perfusion Respiratory: no respiratory distress Gastrointestinal: Non distended Musculoskeletal: No deformity Results & Data Results & Data ([facility]) Vital Signs (Past 12 Hours) Vital Signs Temp Pulse Pulse Resp BP Pulse Ox 09/19/21 08:15 76 12 121/66 95 09/19/21 08:05 77 16 97 09/19/21 08:00 77 20 128/77 96 09/19/21 07:45 74 20 113/63 97 09/19/21 07:33 37.4 C 09/19/21 07:30 77 24 105/75 96 09/19/21 07:15 81 23 137/72 97 09/19/21 07:00 81 18 116/89 96 09/19/21 06:45 75 21 135/75 98 09/19/21 06:30 73 20 131/74 98 09/19/21 06:15 73 20 142/75 H 98 09/19/21 06:00 55 L 20 133/74 99 09/19/21 05:57 57 L 20 98/57 L 99 09/19/21 05:00 61 20 86/45 L 98 09/19/21 04:00 36.1 C L 64 20 79/47 L 97 09/19/21 03:41 65 20 85/49 L 97 09/19/21 03:28 64 20 97 09/19/21 03:00 64 20 86/48 L 98 09/19/21 02:04 63 20 87/50 L 98 09/19/21 01:19 32.3 C L 62 20 86/49 L 98 09/19/21 01:00 32.2 C L 60 20 79/46 L 98 09/19/21 00:00 32.5 C L 59 L 20 88/48 L 99 09/18/21 23:00 59 L 20 80/45 L 99 09/18/21 22:57 36.1 C L 59 L 20 100 09/18/21 22:38 82 09/18/21 22:33 36.1 C L 60 20 95/57 L 98 09/18/21 21:55 65 20 100 09/18/21 21:02 68 19 102/65 98 09/18/21 20:45 68 21 107/64 100 Laboratory Results 09/19/21 09/19/21 09/19/21 Range/Units 14:23 14:23 11:43 WBC (4.8-10.8) K/uL RBC (4.2-5.4) M/uL Hgb (12.0-16.0) g/dL POC Hgb (12.0-16.0) g/dl Hct (37-47) % POC Hct (37-47) % MCV (80-100) fL MCH (25-34) pg MCHC (32-36) g/dL RDW Std Deviation (36.4-46.3) fL RDW Coeff of Polina (11.5-14.5) % Plt Count (130-400) K/uL Absolute Nucleated RBC (0-0) K/uL Nucleated RBC % (auto) % Neutrophils % (Manual) % Lymphocytes % (Manual) % Monocytes % (Manual) % Eosinophils % (Manual) % Basophils % (Manual) % Metamyelocytes % (Man) % Myelocytes % (Man) % Neutrophils # (Manual) (1.4-6.5) K/uL Total Absolute Neuts (1.4-6.5) K/uL Lymphocytes # (Manual) (1.2-3.4) K/uL Total Abs Lymphocytes (1.2-3.4) K/uL Monocytes # (Manual) (0.11-0.59) K/uL Eosinophils # (Manual) (0-0.5) K/uL Basophils # (Manual) (0-0.2) K/uL Metamyelocytes # (Man) (0-0) K/uL Myelocytes # (Manual) (0-0) K/uL Platelet Estimate (Normal) Giant Platelets Polychromasia Basophilic Stippling Anisocytosis Tear Drop Cells Ovalocytes PT (9.0-12.0) Seconds INR (0.9-1.1) APTT 37.1 H (21.0-31.0) Seconds PTT Ratio 1.4 Sample Site POC pH (7.35-7.45) POC pCO2 (35-46) mmHg POC pO2 (80-95) mmHg POC HCO3 (19-24) aram/L POC Base Excess (-9-1.8) aram/L ABG pH (7.35-7.45) ABG pH (Temp Correct) (7.35-7.45) ABG pCO2 (35-46) mmHg ABG pCO2 (Temp Corrct (35-46) mmHg ABG pO2 (80-95) mmHg POC ABG pO2 at Pt Temp ABG HCO3 (19-24) mmol/L POC ABG O2 Sat (90-95) % ABG O2 Saturation (90-95) % ABG Base Excess (-9-1.8) mEq/L Isak Test (Pos) Barometric Pressure mm/Hg Oxygen Given O2 Delivery Device POC O2 Rate POC FiO2 % Tidal Volume PEEP POC Sodium (135-144) mmol/L Sodium 140 (136-145) mmol/L POC Potassium (3.3-5.0) mmol/L Potassium 3.8 (3.5-5.1) mmol/L POC Chloride (101-112) mmol/L Chloride 111 H (98-107) mmol/L Carbon Dioxide 22 (21-32) mmol/L POC Total CO2 (24-31) mmol/L Anion Gap 7.0 (3-11) POC Anion Gap (16-25) mmol/L POC BUN (7-18) mg/dl BUN 39 H (7-18) mg/dl Creatinine 1.78 H (0.6-1.2) mg/dl POC Creatinine (0.6-1.3) mg/dl Est Cr Clr Drug Dosing 26.4 ml/min Est GFR ( Amer) 34.3 ml/min Est GFR (Non-Af Amer) 29.6 ml/min BUN/Creatinine Ratio 21.7 H (10-20) Glucose 147 H (70-99) mg/dl POC Glucose 134 H (70-99) mg/dl POC Glucose (other) (70-99) mg/dl Lactate (0.4-2.0) mmol/L Calcium 8.0 L (8.5-10.1) mg/dl POC Ioniz Calcium Jerald (1.12-1.32) mmol/l Phosphorus (2.5-4.9) mg/dl Magnesium (1.8-2.4) mg/dl Total Bilirubin (0.2-1) mg/dl Direct Bilirubin (0-0.2) mg/dl AST (15-37) U/L ALT (12-78) Alkaline Phosphatase (45-117) U/L Ammonia (11-32) umol/L Troponin I (0-0.045) ng/ml Total Protein (6.4-8.2) gm/dl Albumin (3.4-5.0) gm/dl Globulin (2.5-4.0) gm/dl Albumin/Globulin Ratio (0.9-2) Procalcitonin (0-0.5) ng/ml Urine Color Urine Appearance (Clear) Urine pH (4.5-7.5) Ur Specific [place] (1.000-1.030) Urine Protein (Negative) Urine Glucose (UA) (Negative) Urine Ketones (Negative) Urine Blood (Negative) Urine Nitrite (Negative) Urine Bilirubin (Negative) Urine Urobilinogen (Negative) Ur Leukocyte Esterase (Negative) Urine WBC (Auto) (0-5) /hpf Urine RBC (Auto) (0-4) /hpf U Hyaline Cast (Auto) (0-5) /lpf U Epithel Cells (Auto) (0-5) /lpf Urine Bacteria (Auto) (Negative) Urine Yeast Nasal Screen MRSA (PCR) (Negative) Urine Opiates Screen (Neg) Ur Methadone, Qual (Neg) Urine Barbiturates (Neg) Ur Phencyclidine (PCP) (Neg) U Amphetamin/Meth Scrn (Neg) MDMA (Ecstasy) Screen (Neg) U OH-Alprazolam Confrm U Benzodiazepines Scrn (Neg) 7-Amino Clonazepam Ur Nordiazepam Confirm U OH-ethylflurazepam U Lorazepam Cnf GC/MS U Oxazepam Confm GC/MS Ur Temazepam Confirm U OH-Triazolam Confirm U OH-Midazolam Confirm Ur Cocaine Metabolite (Neg) U Marijuana (THC) Screen (Neg) Drug Screen Comment Ethyl Alcohol mg/dL (0-3) mg/dl SARS-CoV-2 (PCR) (Negative) Influenza Type A (PCR) (Neg) Influenza Type B (PCR) (Neg) RSV (RT-PCR) (Neg) Blood Type Antibody Screen 09/19/21 09/19/21 09/19/21 Range/Units 06:05 06:05 06:05 WBC (4.8-10.8) K/uL RBC (4.2-5.4) M/uL Hgb (12.0-16.0) g/dL POC Hgb (12.0-16.0) g/dl Hct (37-47) % POC Hct (37-47) % MCV (80-100) fL MCH (25-34) pg MCHC (32-36) g/dL RDW Std Deviation (36.4-46.3) fL RDW Coeff of Polina (11.5-14.5) % Plt Count (130-400) K/uL Absolute Nucleated RBC (0-0) K/uL Nucleated RBC % (auto) % Neutrophils % (Manual) % Lymphocytes % (Manual) % Monocytes % (Manual) % Eosinophils % (Manual) % Basophils % (Manual) % Metamyelocytes % (Man) % Myelocytes % (Man) % Neutrophils # (Manual) (1.4-6.5) K/uL Total Absolute Neuts (1.4-6.5) K/uL Lymphocytes # (Manual) (1.2-3.4) K/uL Total Abs Lymphocytes (1.2-3.4) K/uL Monocytes # (Manual) (0.11-0.59) K/uL Eosinophils # (Manual) (0-0.5) K/uL Basophils # (Manual) (0-0.2) K/uL Metamyelocytes # (Man) (0-0) K/uL Myelocytes # (Manual) (0-0) K/uL Platelet Estimate (Normal) Giant Platelets Polychromasia Basophilic Stippling Anisocytosis Tear Drop Cells Ovalocytes PT (9.0-12.0) Seconds INR (0.9-1.1) APTT 33.7 H (21.0-31.0) Seconds PTT Ratio 1.3 Sample Site POC pH (7.35-7.45) POC pCO2 (35-46) mmHg POC pO2 (80-95) mmHg POC HCO3 (19-24) aram/L POC Base Excess (-9-1.8) aram/L ABG pH (7.35-7.45) ABG pH (Temp Correct) (7.35-7.45) ABG pCO2 (35-46) mmHg ABG pCO2 (Temp Corrct (35-46) mmHg ABG pO2 (80-95) mmHg POC ABG pO2 at Pt Temp ABG HCO3 (19-24) mmol/L POC ABG O2 Sat (90-95) % ABG O2 Saturation (90-95) % ABG Base Excess (-9-1.8) mEq/L Isak Test (Pos) Barometric Pressure mm/Hg Oxygen Given O2 Delivery Device POC O2 Rate POC FiO2 % Tidal Volume PEEP POC Sodium (135-144) mmol/L Sodium 141 (136-145) mmol/L POC Potassium (3.3-5.0) mmol/L Potassium 4.2 (3.5-5.1) mmol/L POC Chloride (101-112) mmol/L Chloride 112 H (98-107) mmol/L Carbon Dioxide 22 (21-32) mmol/L POC Total CO2 (24-31) mmol/L Anion Gap 7.0 (3-11) POC Anion Gap (16-25) mmol/L POC BUN (7-18) mg/dl BUN 37 H (7-18) mg/dl Creatinine 1.58 H (0.6-1.2) mg/dl POC Creatinine (0.6-1.3) mg/dl Est Cr Clr Drug Dosing 29.8 ml/min Est GFR ( Amer) 39.7 ml/min Est GFR (Non-Af Amer) 34.2 ml/min BUN/Creatinine Ratio 23.2 H (10-20) Glucose 122 H (70-99) mg/dl POC Glucose (70-99) mg/dl POC Glucose (other) (70-99) mg/dl Lactate (0.4-2.0) mmol/L Calcium 8.1 L (8.5-10.1) mg/dl POC Ioniz Calcium Jerald (1.12-1.32) mmol/l Phosphorus 6.2 H (2.5-4.9) mg/dl Magnesium 2.2 (1.8-2.4) mg/dl Total Bilirubin 1.7 H (0.2-1) mg/dl Direct Bilirubin 1.0 H (0-0.2) mg/dl AST 78 H (15-37) U/L ALT 42 (12-78) Alkaline Phosphatase 279 H D (45-117) U/L Ammonia 44.0 H (11-32) umol/L Troponin I (0-0.045) ng/ml Total Protein 5.6 L (6.4-8.2) gm/dl Albumin 3.0 L (3.4-5.0) gm/dl Globulin (2.5-4.0) gm/dl Albumin/Globulin Ratio (0.9-2) Procalcitonin (0-0.5) ng/ml Urine Color Urine Appearance (Clear) Urine pH (4.5-7.5) Ur Specific [place] (1.000-1.030) Urine Protein (Negative) Urine Glucose (UA) (Negative) Urine Ketones (Negative) Urine Blood (Negative) Urine Nitrite (Negative) Urine Bilirubin (Negative) Urine Urobilinogen (Negative) Ur Leukocyte Esterase (Negative) Urine WBC (Auto) (0-5) /hpf Urine RBC (Auto) (0-4) /hpf U Hyaline Cast (Auto) (0-5) /lpf U Epithel Cells (Auto) (0-5) /lpf Urine Bacteria (Auto) (Negative) Urine Yeast Nasal Screen MRSA (PCR) (Negative) Urine Opiates Screen (Neg) Ur Methadone, Qual (Neg) Urine Barbiturates (Neg) Ur Phencyclidine (PCP) (Neg) U Amphetamin/Meth Scrn (Neg) MDMA (Ecstasy) Screen (Neg) U OH-Alprazolam Confrm U Benzodiazepines Scrn (Neg) 7-Amino Clonazepam Ur Nordiazepam Confirm U OH-ethylflurazepam U Lorazepam Cnf GC/MS U Oxazepam Confm GC/MS Ur Temazepam Confirm U OH-Triazolam Confirm U OH-Midazolam Confirm Ur Cocaine Metabolite (Neg) U Marijuana (THC) Screen (Neg) Drug Screen Comment Ethyl Alcohol mg/dL (0-3) mg/dl SARS-CoV-2 (PCR) (Negative) Influenza Type A (PCR) (Neg) Influenza Type B (PCR) (Neg) RSV (RT-PCR) (Neg) Blood Type Antibody Screen 09/19/21 09/19/21 09/18/21 Range/Units 06:05 03:32 23:00 WBC 13.37 H D (4.8-10.8) K/uL RBC 4.32 (4.2-5.4) M/uL Hgb 11.4 L (12.0-16.0) g/dL POC Hgb 10.5 L (12.0-16.0) g/dl Hct 37.1 (37-47) % POC Hct 31 L (37-47) % MCV 85.9 (80-100) fL MCH 26.4 (25-34) pg MCHC 30.7 L (32-36) g/dL RDW Std Deviation 63.7 H (36.4-46.3) fL RDW Coeff of Polina 20.0 H (11.5-14.5) % Plt Count 198 D (130-400) K/uL Absolute Nucleated RBC 0.43 H (0-0) K/uL Nucleated RBC % (auto) 3.2 % Neutrophils % (Manual) 62.0 % Lymphocytes % (Manual) 16.8 % Monocytes % (Manual) 6.2 % Eosinophils % (Manual) 2.7 % Basophils % (Manual) 3.5 % Metamyelocytes % (Man) 5.3 % Myelocytes % (Man) 3.5 % Neutrophils # (Manual) 8.29 H (1.4-6.5) K/uL Total Absolute Neuts 8.29 H (1.4-6.5) K/uL Lymphocytes # (Manual) 2.25 (1.2-3.4) K/uL Total Abs Lymphocytes 2.25 (1.2-3.4) K/uL Monocytes # (Manual) 0.83 H (0.11-0.59) K/uL Eosinophils # (Manual) 0.36 (0-0.5) K/uL Basophils # (Manual) 0.47 H (0-0.2) K/uL Metamyelocytes # (Man) 0.71 H (0-0) K/uL Myelocytes # (Manual) 0.47 H (0-0) K/uL Platelet Estimate Increased H (Normal) Giant Platelets 1+ Polychromasia Basophilic Stippling Anisocytosis Present Tear Drop Cells 2+ Ovalocytes 1+ PT (9.0-12.0) Seconds INR (0.9-1.1) APTT (21.0-31.0) Seconds PTT Ratio Sample Site R Radial POC pH 7.43 (7.35-7.45) POC pCO2 33 L (35-46) mmHg POC pO2 87 (80-95) mmHg POC HCO3 22 (19-24) aram/L POC Base Excess -2.0 (-9-1.8) aram/L ABG pH (7.35-7.45) ABG pH (Temp Correct) 7.432 (7.35-7.45) ABG pCO2 (35-46) mmHg ABG pCO2 (Temp Corrct 33 L (35-46) mmHg ABG pO2 (80-95) mmHg POC ABG pO2 at Pt Temp 87 ABG HCO3 (19-24) mmol/L POC ABG O2 Sat 97.0 H (90-95) % ABG O2 Saturation (90-95) % ABG Base Excess (-9-1.8) mEq/L Isak Test Pass (Pos) Barometric Pressure mm/Hg Oxygen Given O2 Delivery Device Ventilator POC O2 Rate 20 POC FiO2 35 % Tidal Volume 360 PEEP 5 POC Sodium 141 (135-144) mmol/L Sodium (136-145) mmol/L POC Potassium 4.3 (3.3-5.0) mmol/L Potassium (3.5-5.1) mmol/L POC Chloride (101-112) mmol/L Chloride (98-107) mmol/L Carbon Dioxide (21-32) mmol/L POC Total CO2 23 L (24-31) mmol/L Anion Gap (3-11) POC Anion Gap (16-25) mmol/L POC BUN (7-18) mg/dl BUN (7-18) mg/dl Creatinine (0.6-1.2) mg/dl POC Creatinine (0.6-1.3) mg/dl Est Cr Clr Drug Dosing ml/min Est GFR ( Amer) ml/min Est GFR (Non-Af Amer) ml/min BUN/Creatinine Ratio (10-20) Glucose (70-99) mg/dl POC Glucose (70-99) mg/dl POC Glucose (other) (70-99) mg/dl Lactate (0.4-2.0) mmol/L Calcium (8.5-10.1) mg/dl POC Ioniz Calcium Jerald (1.12-1.32) mmol/l Phosphorus (2.5-4.9) mg/dl Magnesium (1.8-2.4) mg/dl Total Bilirubin (0.2-1) mg/dl Direct Bilirubin (0-0.2) mg/dl AST (15-37) U/L ALT (12-78) Alkaline Phosphatase (45-117) U/L Ammonia (11-32) umol/L Troponin I (0-0.045) ng/ml Total Protein (6.4-8.2) gm/dl Albumin (3.4-5.0) gm/dl Globulin (2.5-4.0) gm/dl Albumin/Globulin Ratio (0.9-2) Procalcitonin (0-0.5) ng/ml Urine Color Urine Appearance (Clear) Urine pH (4.5-7.5) Ur Specific [place] (1.000-1.030) Urine Protein (Negative) Urine Glucose (UA) (Negative) Urine Ketones (Negative) Urine Blood (Negative) Urine Nitrite (Negative) Urine Bilirubin (Negative) Urine Urobilinogen (Negative) Ur Leukocyte Esterase (Negative) Urine WBC (Auto) (0-5) /hpf Urine RBC (Auto) (0-4) /hpf U Hyaline Cast (Auto) (0-5) /lpf U Epithel Cells (Auto) (0-5) /lpf Urine Bacteria (Auto) (Negative) Urine Yeast Nasal Screen MRSA (PCR) Negative (Negative) Urine Opiates Screen (Neg) Ur Methadone, Qual (Neg) Urine Barbiturates (Neg) Ur Phencyclidine (PCP) (Neg) U Amphetamin/Meth Scrn (Neg) MDMA (Ecstasy) Screen (Neg) U OH-Alprazolam Confrm U Benzodiazepines Scrn (Neg) 7-Amino Clonazepam Ur Nordiazepam Confirm U OH-ethylflurazepam U Lorazepam Cnf GC/MS U Oxazepam Confm GC/MS Ur Temazepam Confirm U OH-Triazolam Confirm U OH-Midazolam Confirm Ur Cocaine Metabolite (Neg) U Marijuana (THC) Screen (Neg) Drug Screen Comment Ethyl Alcohol mg/dL (0-3) mg/dl SARS-CoV-2 (PCR) (Negative) Influenza Type A (PCR) (Neg) Influenza Type B (PCR) (Neg) RSV (RT-PCR) (Neg) Blood Type Antibody Screen 09/18/21 09/18/21 09/18/21 Range/Units 20:09 20:08 20:08 WBC (4.8-10.8) K/uL RBC (4.2-5.4) M/uL Hgb (12.0-16.0) g/dL POC Hgb (12.0-16.0) g/dl Hct (37-47) % POC Hct (37-47) % MCV (80-100) fL MCH (25-34) pg MCHC (32-36) g/dL RDW Std Deviation (36.4-46.3) fL RDW Coeff of Polina (11.5-14.5) % Plt Count (130-400) K/uL Absolute Nucleated RBC (0-0) K/uL Nucleated RBC % (auto) % Neutrophils % (Manual) % Lymphocytes % (Manual) % Monocytes % (Manual) % Eosinophils % (Manual) % Basophils % (Manual) % Metamyelocytes % (Man) % Myelocytes % (Man) % Neutrophils # (Manual) (1.4-6.5) K/uL Total Absolute Neuts (1.4-6.5) K/uL Lymphocytes # (Manual) (1.2-3.4) K/uL Total Abs Lymphocytes (1.2-3.4) K/uL Monocytes # (Manual) (0.11-0.59) K/uL Eosinophils # (Manual) (0-0.5) K/uL Basophils # (Manual) (0-0.2) K/uL Metamyelocytes # (Man) (0-0) K/uL Myelocytes # (Manual) (0-0) K/uL Platelet Estimate (Normal) Giant Platelets Polychromasia Basophilic Stippling Anisocytosis Tear Drop Cells Ovalocytes PT (9.0-12.0) Seconds INR (0.9-1.1) APTT (21.0-31.0) Seconds PTT Ratio Sample Site POC pH (7.35-7.45) POC pCO2 (35-46) mmHg POC pO2 (80-95) mmHg POC HCO3 (19-24) aram/L POC Base Excess (-9-1.8) aram/L ABG pH 7.30 L (7.35-7.45) ABG pH (Temp Correct) (7.35-7.45) ABG pCO2 43 (35-46) mmHg ABG pCO2 (Temp Corrct (35-46) mmHg ABG pO2 89 (80-95) mmHg POC ABG pO2 at Pt Temp ABG HCO3 21 (19-24) mmol/L POC ABG O2 Sat (90-95) % ABG O2 Saturation 96.5 H (90-95) % ABG Base Excess -5.8 (-9-1.8) mEq/L Isak Test POS (Pos) Barometric Pressure 729.1 mm/Hg Oxygen Given 40% FiO2 O2 Delivery Device POC O2 Rate POC FiO2 % Tidal Volume PEEP POC Sodium (135-144) mmol/L Sodium (136-145) mmol/L POC Potassium (3.3-5.0) mmol/L Potassium (3.5-5.1) mmol/L POC Chloride (101-112) mmol/L Chloride (98-107) mmol/L Carbon Dioxide (21-32) mmol/L POC Total CO2 (24-31) mmol/L Anion Gap (3-11) POC Anion Gap (16-25) mmol/L POC BUN (7-18) mg/dl BUN (7-18) mg/dl Creatinine (0.6-1.2) mg/dl POC Creatinine (0.6-1.3) mg/dl Est Cr Clr Drug Dosing ml/min Est GFR ( Amer) ml/min Est GFR (Non-Af Amer) ml/min BUN/Creatinine Ratio (10-20) Glucose (70-99) mg/dl POC Glucose (70-99) mg/dl POC Glucose (other) (70-99) mg/dl Lactate 0.8 (0.4-2.0) mmol/L Calcium (8.5-10.1) mg/dl POC Ioniz Calcium Jerald (1.12-1.32) mmol/l Phosphorus (2.5-4.9) mg/dl Magnesium (1.8-2.4) mg/dl Total Bilirubin (0.2-1) mg/dl Direct Bilirubin (0-0.2) mg/dl AST (15-37) U/L ALT (12-78) Alkaline Phosphatase (45-117) U/L Ammonia (11-32) umol/L Troponin I (0-0.045) ng/ml Total Protein (6.4-8.2) gm/dl Albumin (3.4-5.0) gm/dl Globulin (2.5-4.0) gm/dl Albumin/Globulin Ratio (0.9-2) Procalcitonin (0-0.5) ng/ml Urine Color Urine Appearance (Clear) Urine pH (4.5-7.5) Ur Specific [place] (1.000-1.030) Urine Protein (Negative) Urine Glucose (UA) (Negative) Urine Ketones (Negative) Urine Blood (Negative) Urine Nitrite (Negative) Urine Bilirubin (Negative) Urine Urobilinogen (Negative) Ur Leukocyte Esterase (Negative) Urine WBC (Auto) (0-5) /hpf Urine RBC (Auto) (0-4) /hpf U Hyaline Cast (Auto) (0-5) /lpf U Epithel Cells (Auto) (0-5) /lpf Urine Bacteria (Auto) (Negative) Urine Yeast Nasal Screen MRSA (PCR) (Negative) Urine Opiates Screen (Neg) Ur Methadone, Qual (Neg) Urine Barbiturates (Neg) Ur Phencyclidine (PCP) (Neg) U Amphetamin/Meth Scrn (Neg) MDMA (Ecstasy) Screen (Neg) U OH-Alprazolam Confrm U Benzodiazepines Scrn (Neg) 7-Amino Clonazepam Ur Nordiazepam Confirm U OH-ethylflurazepam U Lorazepam Cnf GC/MS U Oxazepam Confm GC/MS Ur Temazepam Confirm U OH-Triazolam Confirm U OH-Midazolam Confirm Ur Cocaine Metabolite (Neg) U Marijuana (THC) Screen (Neg) Drug Screen Comment Ethyl Alcohol mg/dL < 3.0 (0-3) mg/dl SARS-CoV-2 (PCR) (Negative) Influenza Type A (PCR) (Neg) Influenza Type B (PCR) (Neg) RSV (RT-PCR) (Neg) Blood Type Antibody Screen 09/18/21 09/18/21 09/18/21 Range/Units 19:47 18:55 18:55 WBC (4.8-10.8) K/uL RBC (4.2-5.4) M/uL Hgb (12.0-16.0) g/dL POC Hgb 13.6 (12.0-16.0) g/dl Hct (37-47) % POC Hct 40 (37-47) % MCV (80-100) fL MCH (25-34) pg MCHC (32-36) g/dL RDW Std Deviation (36.4-46.3) fL RDW Coeff of Polina (11.5-14.5) % Plt Count (130-400) K/uL Absolute Nucleated RBC (0-0) K/uL Nucleated RBC % (auto) % Neutrophils % (Manual) % Lymphocytes % (Manual) % Monocytes % (Manual) % Eosinophils % (Manual) % Basophils % (Manual) % Metamyelocytes % (Man) % Myelocytes % (Man) % Neutrophils # (Manual) (1.4-6.5) K/uL Total Absolute Neuts (1.4-6.5) K/uL Lymphocytes # (Manual) (1.2-3.4) K/uL Total Abs Lymphocytes (1.2-3.4) K/uL Monocytes # (Manual) (0.11-0.59) K/uL Eosinophils # (Manual) (0-0.5) K/uL Basophils # (Manual) (0-0.2) K/uL Metamyelocytes # (Man) (0-0) K/uL Myelocytes # (Manual) (0-0) K/uL Platelet Estimate (Normal) Giant Platelets Polychromasia Basophilic Stippling Anisocytosis Tear Drop Cells Ovalocytes PT (9.0-12.0) Seconds INR (0.9-1.1) APTT (21.0-31.0) Seconds PTT Ratio Sample Site POC pH (7.35-7.45) POC pCO2 (35-46) mmHg POC pO2 (80-95) mmHg POC HCO3 (19-24) aram/L POC Base Excess (-9-1.8) aram/L ABG pH (7.35-7.45) ABG pH (Temp Correct) (7.35-7.45) ABG pCO2 (35-46) mmHg ABG pCO2 (Temp Corrct (35-46) mmHg ABG pO2 (80-95) mmHg POC ABG pO2 at Pt Temp ABG HCO3 (19-24) mmol/L POC ABG O2 Sat (90-95) % ABG O2 Saturation (90-95) % ABG Base Excess (-9-1.8) mEq/L Isak Test (Pos) Barometric Pressure mm/Hg Oxygen Given O2 Delivery Device POC O2 Rate POC FiO2 % Tidal Volume PEEP POC Sodium 141 (135-144) mmol/L Sodium (136-145) mmol/L POC Potassium 4.7 (3.3-5.0) mmol/L Potassium (3.5-5.1) mmol/L POC Chloride 105 (101-112) mmol/L Chloride (98-107) mmol/L Carbon Dioxide (21-32) mmol/L POC Total CO2 26 (24-31) mmol/L Anion Gap (3-11) POC Anion Gap 15.0 L (16-25) mmol/L POC BUN 29 H (7-18) mg/dl BUN (7-18) mg/dl Creatinine (0.6-1.2) mg/dl POC Creatinine 1.2 (0.6-1.3) mg/dl Est Cr Clr Drug Dosing ml/min Est GFR ( Amer) ml/min Est GFR (Non-Af Amer) ml/min BUN/Creatinine Ratio (10-20) Glucose (70-99) mg/dl POC Glucose (70-99) mg/dl POC Glucose (other) 103 H (70-99) mg/dl Lactate (0.4-2.0) mmol/L Calcium (8.5-10.1) mg/dl POC Ioniz Calcium Jerald 1.17 (1.12-1.32) mmol/l Phosphorus (2.5-4.9) mg/dl Magnesium (1.8-2.4) mg/dl Total Bilirubin (0.2-1) mg/dl Direct Bilirubin (0-0.2) mg/dl AST (15-37) U/L ALT (12-78) Alkaline Phosphatase (45-117) U/L Ammonia (11-32) umol/L Troponin I (0-0.045) ng/ml Total Protein (6.4-8.2) gm/dl Albumin (3.4-5.0) gm/dl Globulin (2.5-4.0) gm/dl Albumin/Globulin Ratio (0.9-2) Procalcitonin (0-0.5) ng/ml Urine Color Urine Appearance (Clear) Urine pH (4.5-7.5) Ur Specific [place] (1.000-1.030) Urine Protein (Negative) Urine Glucose (UA) (Negative) Urine Ketones (Negative) Urine Blood (Negative) Urine Nitrite (Negative) Urine Bilirubin (Negative) Urine Urobilinogen (Negative) Ur Leukocyte Esterase (Negative) Urine WBC (Auto) (0-5) /hpf Urine RBC (Auto) (0-4) /hpf U Hyaline Cast (Auto) (0-5) /lpf U Epithel Cells (Auto) (0-5) /lpf Urine Bacteria (Auto) (Negative) Urine Yeast Nasal Screen MRSA (PCR) (Negative) Urine Opiates Screen Neg (Neg) Ur Methadone, Qual Neg (Neg) Urine Barbiturates Neg (Neg) Ur Phencyclidine (PCP) Neg (Neg) U Amphetamin/Meth Scrn Neg (Neg) MDMA (Ecstasy) Screen Neg (Neg) U OH-Alprazolam Confrm Pending U Benzodiazepines Scrn Pos H (Neg) 7-Amino Clonazepam Pending Ur Nordiazepam Confirm Pending U OH-ethylflurazepam Pending U Lorazepam Cnf GC/MS Pending U Oxazepam Confm GC/MS Pending Ur Temazepam Confirm Pending U OH-Triazolam Confirm Pending U OH-Midazolam Confirm Pending Ur Cocaine Metabolite Neg (Neg) U Marijuana (THC) Screen Neg (Neg) Drug Screen Comment Pending Ethyl Alcohol mg/dL (0-3) mg/dl SARS-CoV-2 (PCR) (Negative) Influenza Type A (PCR) (Neg) Influenza Type B (PCR) (Neg) RSV (RT-PCR) (Neg) Blood Type Antibody Screen 09/18/21 09/18/21 09/18/21 Range/Units 18:55 18:16 17:35 WBC (4.8-10.8) K/uL RBC (4.2-5.4) M/uL Hgb (12.0-16.0) g/dL POC Hgb 14.6 (12.0-16.0) g/dl Hct (37-47) % POC Hct 43 (37-47) % MCV (80-100) fL MCH (25-34) pg MCHC (32-36) g/dL RDW Std Deviation (36.4-46.3) fL RDW Coeff of Polina (11.5-14.5) % Plt Count (130-400) K/uL Absolute Nucleated RBC (0-0) K/uL Nucleated RBC % (auto) % Neutrophils % (Manual) % Lymphocytes % (Manual) % Monocytes % (Manual) % Eosinophils % (Manual) % Basophils % (Manual) % Metamyelocytes % (Man) % Myelocytes % (Man) % Neutrophils # (Manual) (1.4-6.5) K/uL Total Absolute Neuts (1.4-6.5) K/uL Lymphocytes # (Manual) (1.2-3.4) K/uL Total Abs Lymphocytes (1.2-3.4) K/uL Monocytes # (Manual) (0.11-0.59) K/uL Eosinophils # (Manual) (0-0.5) K/uL Basophils # (Manual) (0-0.2) K/uL Metamyelocytes # (Man) (0-0) K/uL Myelocytes # (Manual) (0-0) K/uL Platelet Estimate (Normal) Giant Platelets Polychromasia Basophilic Stippling Anisocytosis Tear Drop Cells Ovalocytes PT (9.0-12.0) Seconds INR (0.9-1.1) APTT (21.0-31.0) Seconds PTT Ratio Sample Site POC pH (7.35-7.45) POC pCO2 (35-46) mmHg POC pO2 (80-95) mmHg POC HCO3 (19-24) aram/L POC Base Excess (-9-1.8) aram/L ABG pH (7.35-7.45) ABG pH (Temp Correct) (7.35-7.45) ABG pCO2 (35-46) mmHg ABG pCO2 (Temp Corrct (35-46) mmHg ABG pO2 (80-95) mmHg POC ABG pO2 at Pt Temp ABG HCO3 (19-24) mmol/L POC ABG O2 Sat (90-95) % ABG O2 Saturation (90-95) % ABG Base Excess (-9-1.8) mEq/L Isak Test (Pos) Barometric Pressure mm/Hg Oxygen Given O2 Delivery Device POC O2 Rate POC FiO2 % Tidal Volume PEEP POC Sodium 143 (135-144) mmol/L Sodium (136-145) mmol/L POC Potassium 4.1 (3.3-5.0) mmol/L Potassium (3.5-5.1) mmol/L POC Chloride 107 (101-112) mmol/L Chloride (98-107) mmol/L Carbon Dioxide (21-32) mmol/L POC Total CO2 24 (24-31) mmol/L Anion Gap (3-11) POC Anion Gap 16.0 (16-25) mmol/L POC BUN 30 H (7-18) mg/dl BUN (7-18) mg/dl Creatinine (0.6-1.2) mg/dl POC Creatinine 1.2 (0.6-1.3) mg/dl Est Cr Clr Drug Dosing ml/min Est GFR ( Amer) ml/min Est GFR (Non-Af Amer) ml/min BUN/Creatinine Ratio (10-20) Glucose (70-99) mg/dl POC Glucose (70-99) mg/dl POC Glucose (other) 98 (70-99) mg/dl Lactate (0.4-2.0) mmol/L Calcium (8.5-10.1) mg/dl POC Ioniz Calcium Jerald 1.11 L (1.12-1.32) mmol/l Phosphorus (2.5-4.9) mg/dl Magnesium (1.8-2.4) mg/dl Total Bilirubin (0.2-1) mg/dl Direct Bilirubin (0-0.2) mg/dl AST (15-37) U/L ALT (12-78) Alkaline Phosphatase (45-117) U/L Ammonia (11-32) umol/L Troponin I (0-0.045) ng/ml Total Protein (6.4-8.2) gm/dl Albumin (3.4-5.0) gm/dl Globulin (2.5-4.0) gm/dl Albumin/Globulin Ratio (0.9-2) Procalcitonin (0-0.5) ng/ml Urine Color Yellow Urine Appearance Cloudy A (Clear) Urine pH 8.5 H (4.5-7.5) Ur Specific [place] 1.026 (1.000-1.030) Urine Protein 4+ H (Negative) Urine Glucose (UA) Trace H (Negative) Urine Ketones Negative (Negative) Urine Blood 3+ H (Negative) Urine Nitrite Negative (Negative) Urine Bilirubin Negative (Negative) Urine Urobilinogen Negative (Negative) Ur Leukocyte Esterase Negative (Negative) Urine WBC (Auto) >30 H (0-5) /hpf Urine RBC (Auto) >30 H (0-4) /hpf U Hyaline Cast (Auto) 10-30 H (0-5) /lpf U Epithel Cells (Auto) 10-20 H (0-5) /lpf Urine Bacteria (Auto) Negative (Negative) Urine Yeast Not Reportable Nasal Screen MRSA (PCR) (Negative) Urine Opiates Screen (Neg) Ur Methadone, Qual (Neg) Urine Barbiturates (Neg) Ur Phencyclidine (PCP) (Neg) U Amphetamin/Meth Scrn (Neg) MDMA (Ecstasy) Screen (Neg) U OH-Alprazolam Confrm U Benzodiazepines Scrn (Neg) 7-Amino Clonazepam Ur Nordiazepam Confirm U OH-ethylflurazepam U Lorazepam Cnf GC/MS U Oxazepam Confm GC/MS Ur Temazepam Confirm U OH-Triazolam Confirm U OH-Midazolam Confirm Ur Cocaine Metabolite (Neg) U Marijuana (THC) Screen (Neg) Drug Screen Comment Ethyl Alcohol mg/dL (0-3) mg/dl SARS-CoV-2 (PCR) POSITIVE A* (Negative) Influenza Type A (PCR) Negative (Neg) Influenza Type B (PCR) Negative (Neg) RSV (RT-PCR) Negative (Neg) Blood Type Antibody Screen 09/18/21 09/18/21 09/18/21 Range/Units 17:23 17:23 17:23 WBC (4.8-10.8) K/uL RBC (4.2-5.4) M/uL Hgb (12.0-16.0) g/dL POC Hgb (12.0-16.0) g/dl Hct (37-47) % POC Hct (37-47) % MCV (80-100) fL MCH (25-34) pg MCHC (32-36) g/dL RDW Std Deviation (36.4-46.3) fL RDW Coeff of Polina (11.5-14.5) % Plt Count (130-400) K/uL Absolute Nucleated RBC (0-0) K/uL Nucleated RBC % (auto) % Neutrophils % (Manual) % Lymphocytes % (Manual) % Monocytes % (Manual) % Eosinophils % (Manual) % Basophils % (Manual) % Metamyelocytes % (Man) % Myelocytes % (Man) % Neutrophils # (Manual) (1.4-6.5) K/uL Total Absolute Neuts (1.4-6.5) K/uL Lymphocytes # (Manual) (1.2-3.4) K/uL Total Abs Lymphocytes (1.2-3.4) K/uL Monocytes # (Manual) (0.11-0.59) K/uL Eosinophils # (Manual) (0-0.5) K/uL Basophils # (Manual) (0-0.2) K/uL Metamyelocytes # (Man) (0-0) K/uL Myelocytes # (Manual) (0-0) K/uL Platelet Estimate (Normal) Giant Platelets Polychromasia Basophilic Stippling Anisocytosis Tear Drop Cells Ovalocytes PT 15.3 H (9.0-12.0) Seconds INR 1.6 H (0.9-1.1) APTT 36.6 H (21.0-31.0) Seconds PTT Ratio 1.4 Sample Site POC pH (7.35-7.45) POC pCO2 (35-46) mmHg POC pO2 (80-95) mmHg POC HCO3 (19-24) aram/L POC Base Excess (-9-1.8) aram/L ABG pH (7.35-7.45) ABG pH (Temp Correct) (7.35-7.45) ABG pCO2 (35-46) mmHg ABG pCO2 (Temp Corrct (35-46) mmHg ABG pO2 (80-95) mmHg POC ABG pO2 at Pt Temp ABG HCO3 (19-24) mmol/L POC ABG O2 Sat (90-95) % ABG O2 Saturation (90-95) % ABG Base Excess (-9-1.8) mEq/L Isak Test (Pos) Barometric Pressure mm/Hg Oxygen Given O2 Delivery Device POC O2 Rate POC FiO2 % Tidal Volume PEEP POC Sodium (135-144) mmol/L Sodium 141 (136-145) mmol/L POC Potassium (3.3-5.0) mmol/L Potassium 4.2 (3.5-5.1) mmol/L POC Chloride (101-112) mmol/L Chloride 111 H (98-107) mmol/L Carbon Dioxide 25 (21-32) mmol/L POC Total CO2 (24-31) mmol/L Anion Gap 5.0 (3-11) POC Anion Gap (16-25) mmol/L POC BUN (7-18) mg/dl BUN 27 H (7-18) mg/dl Creatinine 1.30 H (0.6-1.2) mg/dl POC Creatinine (0.6-1.3) mg/dl Est Cr Clr Drug Dosing 40.7 ml/min Est GFR ( Amer) 50.2 ml/min Est GFR (Non-Af Amer) 43.3 ml/min BUN/Creatinine Ratio 20.7 H (10-20) Glucose 102 H (70-99) mg/dl POC Glucose (70-99) mg/dl POC Glucose (other) (70-99) mg/dl Lactate (0.4-2.0) mmol/L Calcium 8.2 L (8.5-10.1) mg/dl POC Ioniz Calcium Jerald (1.12-1.32) mmol/l Phosphorus (2.5-4.9) mg/dl Magnesium 2.3 (1.8-2.4) mg/dl Total Bilirubin 1.3 H (0.2-1) mg/dl Direct Bilirubin (0-0.2) mg/dl AST 101 H (15-37) U/L ALT 48 (12-78) Alkaline Phosphatase 366 H (45-117) U/L Ammonia (11-32) umol/L Troponin I 0.021 (0-0.045) ng/ml Total Protein 6.6 (6.4-8.2) gm/dl Albumin 3.3 L (3.4-5.0) gm/dl Globulin 3.3 (2.5-4.0) gm/dl Albumin/Globulin Ratio 1.0 (0.9-2) Procalcitonin 0.09 (0-0.5) ng/ml Urine Color Urine Appearance (Clear) Urine pH (4.5-7.5) Ur Specific [place] (1.000-1.030) Urine Protein (Negative) Urine Glucose (UA) (Negative) Urine Ketones (Negative) Urine Blood (Negative) Urine Nitrite (Negative) Urine Bilirubin (Negative) Urine Urobilinogen (Negative) Ur Leukocyte Esterase (Negative) Urine WBC (Auto) (0-5) /hpf Urine RBC (Auto) (0-4) /hpf U Hyaline Cast (Auto) (0-5) /lpf U Epithel Cells (Auto) (0-5) /lpf Urine Bacteria (Auto) (Negative) Urine Yeast Nasal Screen MRSA (PCR) (Negative) Urine Opiates Screen (Neg) Ur Methadone, Qual (Neg) Urine Barbiturates (Neg) Ur Phencyclidine (PCP) (Neg) U Amphetamin/Meth Scrn (Neg) MDMA (Ecstasy) Screen (Neg) U OH-Alprazolam Confrm U Benzodiazepines Scrn (Neg) 7-Amino Clonazepam Ur Nordiazepam Confirm U OH-ethylflurazepam U Lorazepam Cnf GC/MS U Oxazepam Confm GC/MS Ur Temazepam Confirm U OH-Triazolam Confirm U OH-Midazolam Confirm Ur Cocaine Metabolite (Neg) U Marijuana (THC) Screen (Neg) Drug Screen Comment Ethyl Alcohol mg/dL (0-3) mg/dl SARS-CoV-2 (PCR) (Negative) Influenza Type A (PCR) (Neg) Influenza Type B (PCR) (Neg) RSV (RT-PCR) (Neg) Blood Type Antibody Screen 09/18/21 09/18/21 Range/Units 17:23 17:23 WBC 38.07 H* (4.8-10.8) K/uL RBC 5.08 (4.2-5.4) M/uL Hgb 13.2 (12.0-16.0) g/dL POC Hgb (12.0-16.0) g/dl Hct 44.7 (37-47) % POC Hct (37-47) % MCV 88.0 (80-100) fL MCH 26.0 (25-34) pg MCHC 29.5 L (32-36) g/dL RDW Std Deviation 65.3 H (36.4-46.3) fL RDW Coeff of Polina 21.1 H (11.5-14.5) % Plt Count 439 H (130-400) K/uL Absolute Nucleated RBC 8.01 H (0-0) K/uL Nucleated RBC % (auto) 21.0 % Neutrophils % (Manual) 33.3 % Lymphocytes % (Manual) 36.7 % Monocytes % (Manual) 7.5 % Eosinophils % (Manual) 3.3 % Basophils % (Manual) 2.5 % Metamyelocytes % (Man) 10.0 % Myelocytes % (Man) 6.7 % Neutrophils # (Manual) 12.68 H (1.4-6.5) K/uL Total Absolute Neuts 12.68 H (1.4-6.5) K/uL Lymphocytes # (Manual) 13.97 H (1.2-3.4) K/uL Total Abs Lymphocytes 13.97 H (1.2-3.4) K/uL Monocytes # (Manual) 2.86 H (0.11-0.59) K/uL Eosinophils # (Manual) 1.26 H (0-0.5) K/uL Basophils # (Manual) 0.95 H (0-0.2) K/uL Metamyelocytes # (Man) 3.81 H (0-0) K/uL Myelocytes # (Manual) 2.55 H (0-0) K/uL Platelet Estimate (Normal) Giant Platelets Polychromasia 1+ Basophilic Stippling 1+ Anisocytosis Tear Drop Cells 2+ Ovalocytes PT (9.0-12.0) Seconds INR (0.9-1.1) APTT (21.0-31.0) Seconds PTT Ratio Sample Site POC pH (7.35-7.45) POC pCO2 (35-46) mmHg POC pO2 (80-95) mmHg POC HCO3 (19-24) aram/L POC Base Excess (-9-1.8) aram/L ABG pH (7.35-7.45) ABG pH (Temp Correct) (7.35-7.45) ABG pCO2 (35-46) mmHg ABG pCO2 (Temp Corrct (35-46) mmHg ABG pO2 (80-95) mmHg POC ABG pO2 at Pt Temp ABG HCO3 (19-24) mmol/L POC ABG O2 Sat (90-95) % ABG O2 Saturation (90-95) % ABG Base Excess (-9-1.8) mEq/L Isak Test (Pos) Barometric Pressure mm/Hg Oxygen Given O2 Delivery Device POC O2 Rate POC FiO2 % Tidal Volume PEEP POC Sodium (135-144) mmol/L Sodium (136-145) mmol/L POC Potassium (3.3-5.0) mmol/L Potassium (3.5-5.1) mmol/L POC Chloride (101-112) mmol/L Chloride (98-107) mmol/L Carbon Dioxide (21-32) mmol/L POC Total CO2 (24-31) mmol/L Anion Gap (3-11) POC Anion Gap (16-25) mmol/L POC BUN (7-18) mg/dl BUN (7-18) mg/dl Creatinine (0.6-1.2) mg/dl POC Creatinine (0.6-1.3) mg/dl Est Cr Clr Drug Dosing ml/min Est GFR ( Amer) ml/min Est GFR (Non-Af Amer) ml/min BUN/Creatinine Ratio (10-20) Glucose (70-99) mg/dl POC Glucose (70-99) mg/dl POC Glucose (other) (70-99) mg/dl Lactate (0.4-2.0) mmol/L Calcium (8.5-10.1) mg/dl POC Ioniz Calcium Jerald (1.12-1.32) mmol/l Phosphorus (2.5-4.9) mg/dl Magnesium (1.8-2.4) mg/dl Total Bilirubin (0.2-1) mg/dl Direct Bilirubin (0-0.2) mg/dl AST (15-37) U/L ALT (12-78) Alkaline Phosphatase (45-117) U/L Ammonia (11-32) umol/L Troponin I (0-0.045) ng/ml Total Protein (6.4-8.2) gm/dl Albumin (3.4-5.0) gm/dl Globulin (2.5-4.0) gm/dl Albumin/Globulin Ratio (0.9-2) Procalcitonin (0-0.5) ng/ml Urine Color Urine Appearance (Clear) Urine pH (4.5-7.5) Ur Specific [place] (1.000-1.030) Urine Protein (Negative) Urine Glucose (UA) (Negative) Urine Ketones (Negative) Urine Blood (Negative) Urine Nitrite (Negative) Urine Bilirubin (Negative) Urine Urobilinogen (Negative) Ur Leukocyte Esterase (Negative) Urine WBC (Auto) (0-5) /hpf Urine RBC (Auto) (0-4) /hpf U Hyaline Cast (Auto) (0-5) /lpf U Epithel Cells (Auto) (0-5) /lpf Urine Bacteria (Auto) (Negative) Urine Yeast Nasal Screen MRSA (PCR) (Negative) Urine Opiates Screen (Neg) Ur Methadone, Qual (Neg) Urine Barbiturates (Neg) Ur Phencyclidine (PCP) (Neg) U Amphetamin/Meth Scrn (Neg) MDMA (Ecstasy) Screen (Neg) U OH-Alprazolam Confrm U Benzodiazepines Scrn (Neg) 7-Amino Clonazepam Ur Nordiazepam Confirm U OH-ethylflurazepam U Lorazepam Cnf GC/MS U Oxazepam Confm GC/MS Ur Temazepam Confirm U OH-Triazolam Confirm U OH-Midazolam Confirm Ur Cocaine Metabolite (Neg) U Marijuana (THC) Screen (Neg) Drug Screen Comment Ethyl Alcohol mg/dL (0-3) mg/dl SARS-CoV-2 (PCR) (Negative) Influenza Type A (PCR) (Neg) Influenza Type B (PCR) (Neg) RSV (RT-PCR) (Neg) Blood Type A Positive Antibody Screen NEGATIVE Coding Level of Care Code 31564 Subseq Hosp Care Lvl 3 Diagnoses Admitted to intensive care unit Z78.9 Symptomatic bradycardia R00.1 Respiratory failure J96.00 Chronicity: acute Respiratory failure complication: unspecified whether with hypoxia or hypercapnia Syncope R55 Syncope type: unspecified COVID-19 U07.1 Cirrhosis K74.60 Esophageal varices I85.00 Portal hypertension K76.6 Ascites R18.8 Myelodysplastic disease C94.6 Pulmonary emboli I26.99 Protein S deficiency D68.59 (1) Respiratory failure Chronicity: acute Respiratory failure complication: unspecified whether with hypoxia or hypercapnia Qualified Code(s): J96.00 - Acute respiratory failure, unspecified whether with hypoxia or hypercapnia (2) Syncope Syncope type: unspecified Qualified Code(s): R55 - Syncope and collapse
[2021-09-19] MEDS: FAMOTIDINE 20 MG in SYRINGE 3 ML IV SCH (08:50)
[2021-09-19] MEDS ORDERED: dexAMETHasone 6 MG in SYRINGE 0 ML IV SCH (09:00)
[2021-09-19] MEDS ORDERED: HEPARIN SOD (PORCINE) 1000 UNIT/ML IV ONE ×3 (09:00→16:45)
--- NOTE | 2021-09-19 09:59 | XCELERA ---
[id number]
--- NOTE | 2021-09-19 10:40 | Consultation Report ---
HEMATOLOGY CONSULTATION DATE OF SERVICE: 09/19/2021 REASON FOR CONSULTATION: A 66-year-old female patient well known to [facility] with JAK2 positive idiopathic myelofibrosis. HISTORY OF PRESENT ILLNESS: Belgica is a very pleasant 66-year-old female well known to [facility], currently under my care for JAK2 positive idiopathic myelofibrosis. I had just seen Belgica in the office on 09/12, at which time, was seen by Dr. Barroso, decaler at [facility] in [place]. I sent Belgica because of splenomegaly and abnormal appearance of the liver on last CT scan earlier this fall. Dr. 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 She also had undergone a paracentesis, which yielded about 4 liters of fluid. Belgica was admitted to [facility] last night after suffering a syncopal episode and bradycardia. She was subsequently intubated by prehospital personnel and then placed on a transcutaneous pacemaker. Bradycardia had improved and the pacemaker was discontinued when the patient arrived in the Emergency Room. Belgica is COVID-19 positive. She had an extensive radiographic workup with only patchy ground-glass appearance on chest x-ray. The remainder of the scans, which were vascular in nature, were negative for atherosclerotic disease or stroke. She is currently on ruxolitinib 10 mg p.o. daily for myelofibrosis. The patient has not required a transfusion. She also suffers from an underlying thrombophilia, protein S deficiency and has had multiple DVTs, pulmonary embolism and hepatic vein thromboses by history. She was maintaining on Xarelto prior to admission and now has been placed on unfractionated heparin. The patient is currently intubated and mechanically ventilated. FiO2 is 30%, PEEP of 5 and I suspect she might be able to be weaned perhaps later today. 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 3. Anxiety/depression. 4. Esophageal varices. 5. Gastric varices. 6. Protein S deficiency and multiple thrombotic events. 7. Portal hypertension. 8. History of upper GI bleeding. PAST SURGICAL HISTORY: Includes shoulder surgery, bone marrow biopsy and aspiration, colonoscopy, EGD, liver biopsy, tubal ligation. CURRENT MEDICATIONS: Include cholecalciferol 2000 units p.o. at bedtime, Jakafi 10 mg p.o. b.i.d., Protonix 40 mg p.o. b.i.d., Xarelto 10 mg p.o. daily, propranolol 10 mg p.o. t.i.d., citalopram 30 mg p.o. at bedtime, furosemide 20 mg p.o. daily. ALLERGIES: No known drug allergies. SOCIAL HISTORY: The patient is retired. She is . She is a nonsmoker, nondrinker, nonillicit drug user. FAMILY HISTORY: Father at age 44 from heart disease, myocardial infarction. Mother suffered from hypertension. She had one son, unfortunately he was killed in a motor vehicle accident at age 26. REVIEW OF SYSTEMS: Unobtainable because the patient is mechanically intubated. PHYSICAL EXAMINATION: GENERAL: A 66-year-old intubated, mechanically ventilated female, sedated, in no acute distress. VITAL SIGNS: Temperature 37.4, pulse 76, respiratory rate 12, blood pressure 121/66. SKIN: Without rash or lesion. HEENT: Atraumatic, normocephalic. Eyes: PERRLA. EOMI. No scleral icterus noted. Nares patent without rhinorrhea or discharge. Throat intubated. NECK: Supple. LYMPHATICS: No cervical or supraclavicular palpable nodes. HEART: Regular rate and rhythm. LUNGS: Clear to auscultation bilaterally. ABDOMEN: Distended. Massive hepatosplenomegaly. Shifting dullness. Positive fluid wave. EXTREMITIES: No clubbing, cyanosis or edema. NEUROLOGIC: Again, the patient is sedated, otherwise intact. LABORATORY DATA: WBC count 13,370, hemoglobin 10.4, platelet count 198,000. PT 15.3 seconds, INR 1.6, PTT 33.7 seconds. Sodium 141, potassium 4.3, chloride 105, carbon dioxide 22, creatinine 1.58, BUN 37, total bilirubin 1.7, direct bilirubin 1, AST 78, ALT 42, alkaline phosphatase 279. Ammonia 44, albumin 3.0. Urine contains both WBCs and RBCs as well as 4+ protein. Urine drug screen positive for benzodiazepines. IMPRESSION: 1. Acute respiratory failure/COVID-19 pneumonia. 2. Hypotension. 3. Syncope. 4. Agnogenic myeloid metaplasia, JAK2 positive disease. 5. 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 6. Thrombophilia, protein S deficiency, multiple thrombotic events by history. PLAN: Belgica Roy is a pleasant 66-year-old longstanding patient of mine with agnogenic myeloid metaplasia, currently on Jakafi 10 mg p.o. b.i.d. Belgica has had a very complex clinical course over the past couple of years, has been hospitalized with repeated GI bleeding. Her most recent radiographic study had revealed a change in the appearance of her liver as well as enlargement. Thus, Belgica was sent to see Dr. Barroso, decaler at [facility] in [place], and he believes she may suffer from Budd-Chiari and suspects Belgica at some point will require a liver transplant. I had seen her in the office on the . She seemed to be doing well status post paracentesis, yielding 4 liters of fluid. Based on her presentation, perhaps she is developing hepatorenal syndrome. There is a fair amount of protein in her urine and creatinine has significantly increased. Her urinalysis also suggests that she may have an underlying urinary tract infection. If not already done, would pursue both blood and urine cultures. From a respiratory status, she seemed to be vastly improved at bedside this morning and I suspect she will be extubated perhaps in the next 12- 24 hours. Other than monitoring leukocytosis, she needs no further hematologic support at this time. I have no problem with holding Jakafi until she is more stable. We will continue to follow her periodically during hospitalization. Thank you very much for allowing me to participate in her care. Job ID: [id number] [facility]ENTERKelsie
[2021-09-19] MEDS: LACTULOSE SYRUP 20 GM/30 ML UDC PO SCH (11:44)
--- NOTE | 2021-09-19 12:30 | Hospitalist Progress Note ---
Date of Service September 19, 2021 Assessment & Plan (1) Respiratory failure: Plan: Respiratory failure/COVID-19 pneumonia/possible aspiration- Zosyn 4.5 g IV every 8 hours x 5 days Azithromycin 500 mg IV daily x 5 days stop Dexamethasone as she is 95% on room air, no distress, lungs clear on x-ray (2) RAFIQ (acute kidney injury): Plan: Cr up to 1.5, making urine could be HRS? 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 tester was concerned with her having "brain fog" recently see if she responds to Lactulose ammonia in AM (5) Syncope: Plan: Syncope- Bradycardia cardiac arrest, acute respiratory failure unclear what happened, will try to speak with her respiratory status is stable HR and BP stable continue to monitor on tele will need PT/OT (6) COVID-19: Plan: See above no true symptoms, not hypoxic, stop Dexamethasone (7) Other pulmonary embolism and infarction: Plan: Place heparin IV low-dose without bolus h/o such start back on Coumadin tomorrow (8) Cirrhosis: Plan: Cirrhosis/esophageal varices/portal hypertension/splenomegaly/gastric varices/ascites- d/w radiology, only has about 1L of fluid in abdomen, hold on paracentesis for now ammonia is 44, give Lactulose and repeat ammonia tomorrow, monitor for improvement in mental status (9) Esophageal varices: Plan: See above (10) Portal hypertension: Plan: See above (11) Splenomegaly: Plan: See above (12) Gastric varices: Plan: See above (13) Myelodysplastic disease: Plan: Follows in outpatient setting with hematology oncology Dr. Vergara appreciate his consult (14) Reflux esophagitis: Plan: Placed on famotidine 20 mg IV every 12 hours (15) Admitted to intensive care unit: Plan: extubated today, breathing well, downgrade to [facility] tele status Admission and Anticipated Discharge Date Admission Date: September 18, 2021 Subjective patient cannot recall much of what happened yesterday, remembers eating breakfast didn't realize she was intubated overnight she recalls that recently she was in [place], she knows that hepatology wants her on a transplant list she says she has a few relatives who could be living donors recalls that in her 30's she had a 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 Greer, her Cr is up at 1.5, she is making urine via kyle discussed with Dr. Vergara, appreciate his input discussed with Dr. Chaparro, will move out of the ICU Review of Systems Review of Systems: All systems reviewed & are unremarkable except as noted in Subjective Constitutional: + fatigue and + weakness Gastrointestinal: + abdominal pain Neurologic: + confusion Physical Exam Physical Exam: General: well developed, thin female, ill appearing, no distress Neck: supple, trachea midline, normal thyroid Lungs: clear to auscultation bilaterally, normal respiratory effort, no accessory muscle use, no distress Heart: regular S1 and S2, no murmur, peripheral pulses normal, capillary refill normal, no edema Abdomen: soft, NT, ND, + BS, +ascites Extremities: normal in appearance, no cyanosis, no petechiae, strength is 5/5 bilaterally Neuro: awake, cooperative, moves all extremities, no focal motor deficits, CN II-XII intact, + short term memory loss, + confusion Skin: warm, dry, no rash, normal turgor Psych: Awake, alert oriented to person and place, unsure of what day of the week it is Results & Data Results & Data ([facility]) Vital Signs (Past 12 Hours) Vital Signs Temp Pulse Resp BP Pulse Ox 09/19/21 08:15 76 12 121/66 95 09/19/21 08:05 77 16 97 09/19/21 08:00 77 20 128/77 96 09/19/21 07:45 74 20 113/63 97 09/19/21 07:33 37.4 C 09/19/21 07:30 77 24 105/75 96 09/19/21 07:15 81 23 137/72 97 09/19/21 07:00 81 18 116/89 96 09/19/21 06:45 75 21 135/75 98 09/19/21 06:30 73 20 131/74 98 09/19/21 06:15 73 20 142/75 H 98 09/19/21 06:00 55 L 20 133/74 99 09/19/21 05:57 57 L 20 98/57 L 99 09/19/21 05:00 61 20 86/45 L 98 09/19/21 04:00 36.1 C L 64 20 79/47 L 97 09/19/21 03:41 65 20 85/49 L 97 09/19/21 03:28 64 20 97 09/19/21 03:00 64 20 86/48 L 98 09/19/21 02:04 63 20 87/50 L 98 09/19/21 01:19 32.3 C L 62 20 86/49 L 98 09/19/21 01:00 32.2 C L 60 20 79/46 L 98 Laboratory Results Laboratory Results - last 24 hr 09/18/21 09/18/21 09/18/21 17:23 17:23 17:23 WBC 38.07 H* RBC 5.08 Hgb 13.2 POC Hgb Hct 44.7 POC Hct MCV 88.0 MCH 26.0 MCHC 29.5 L RDW Std Deviation 65.3 H RDW Coeff of Polina 21.1 H Plt Count 439 H Absolute Nucleated RBC 8.01 H Nucleated RBC % (auto) 21.0 Neutrophils % (Manual) 33.3 Lymphocytes % (Manual) 36.7 Monocytes % (Manual) 7.5 Eosinophils % (Manual) 3.3 Basophils % (Manual) 2.5 Metamyelocytes % (Man) 10.0 Myelocytes % (Man) 6.7 Neutrophils # (Manual) 12.68 H Total Absolute Neuts 12.68 H Lymphocytes # (Manual) 13.97 H Total Abs Lymphocytes 13.97 H Monocytes # (Manual) 2.86 H Eosinophils # (Manual) 1.26 H Basophils # (Manual) 0.95 H Metamyelocytes # (Man) 3.81 H Myelocytes # (Manual) 2.55 H Platelet Estimate Giant Platelets Polychromasia 1+ Basophilic Stippling 1+ Anisocytosis Tear Drop Cells 2+ Ovalocytes PT 15.3 H INR 1.6 H APTT 36.6 H PTT Ratio 1.4 Sample Site POC pH POC pCO2 POC pO2 POC HCO3 POC Base Excess ABG pH ABG pH (Temp Correct) ABG pCO2 ABG pCO2 (Temp Corrct ABG pO2 POC ABG pO2 at Pt Temp ABG HCO3 POC ABG O2 Sat ABG O2 Saturation ABG Base Excess Isak Test Barometric Pressure Oxygen Given O2 Delivery Device POC O2 Rate POC FiO2 Tidal Volume PEEP POC Sodium Sodium POC Potassium Potassium POC Chloride Chloride Carbon Dioxide POC Total CO2 Anion Gap POC Anion Gap POC BUN BUN Creatinine POC Creatinine Est Cr Clr Drug Dosing Est GFR ( Amer) Est GFR (Non-Af Amer) BUN/Creatinine Ratio Glucose POC Glucose POC Glucose (other) Lactate Calcium POC Ioniz Calcium Jerald Phosphorus Magnesium Total Bilirubin Direct Bilirubin AST ALT Alkaline Phosphatase Ammonia Troponin I Total Protein Albumin Globulin Albumin/Globulin Ratio Procalcitonin Urine Color Urine Appearance Urine pH Ur Specific [place] Urine Protein Urine Glucose (UA) Urine Ketones Urine Blood Urine Nitrite Urine Bilirubin Urine Urobilinogen Ur Leukocyte Esterase Urine WBC (Auto) Urine RBC (Auto) U Hyaline Cast (Auto) U Epithel Cells (Auto) Urine Bacteria (Auto) Urine Yeast Nasal Screen MRSA (PCR) Urine Opiates Screen Ur Methadone, Qual Urine Barbiturates Ur Phencyclidine (PCP) U Amphetamin/Meth Scrn MDMA (Ecstasy) Screen U OH-Alprazolam Confrm U Benzodiazepines Scrn 7-Amino Clonazepam Ur Nordiazepam Confirm U OH-ethylflurazepam U Lorazepam Cnf GC/MS U Oxazepam Confm GC/MS Ur Temazepam Confirm U OH-Triazolam Confirm U OH-Midazolam Confirm Ur Cocaine Metabolite U Marijuana (THC) Screen Drug Screen Comment Ethyl Alcohol mg/dL SARS-CoV-2 (PCR) Influenza Type A (PCR) Influenza Type B (PCR) RSV (RT-PCR) Blood Type A Positive Antibody Screen NEGATIVE 09/18/21 09/18/21 09/18/21 17:23 17:23 17:35 WBC RBC Hgb POC Hgb 14.6 Hct POC Hct 43 MCV MCH MCHC RDW Std Deviation RDW Coeff of Polina Plt Count Absolute Nucleated RBC Nucleated RBC % (auto) Neutrophils % (Manual) Lymphocytes % (Manual) Monocytes % (Manual) Eosinophils % (Manual) Basophils % (Manual) Metamyelocytes % (Man) Myelocytes % (Man) Neutrophils # (Manual) Total Absolute Neuts Lymphocytes # (Manual) Total Abs Lymphocytes Monocytes # (Manual) Eosinophils # (Manual) Basophils # (Manual) Metamyelocytes # (Man) Myelocytes # (Manual) Platelet Estimate Giant Platelets Polychromasia Basophilic Stippling Anisocytosis Tear Drop Cells Ovalocytes PT INR APTT PTT Ratio Sample Site POC pH POC pCO2 POC pO2 POC HCO3 POC Base Excess ABG pH ABG pH (Temp Correct) ABG pCO2 ABG pCO2 (Temp Corrct ABG pO2 POC ABG pO2 at Pt Temp ABG HCO3 POC ABG O2 Sat ABG O2 Saturation ABG Base Excess Isak Test Barometric Pressure Oxygen Given O2 Delivery Device POC O2 Rate POC FiO2 Tidal Volume PEEP POC Sodium 143 Sodium 141 POC Potassium 4.1 Potassium 4.2 POC Chloride 107 Chloride 111 H Carbon Dioxide 25 POC Total CO2 24 Anion Gap 5.0 POC Anion Gap 16.0 POC BUN 30 H BUN 27 H Creatinine 1.30 H POC Creatinine 1.2 Est Cr Clr Drug Dosing 40.7 Est GFR ( Amer) 50.2 Est GFR (Non-Af Amer) 43.3 BUN/Creatinine Ratio 20.7 H Glucose 102 H POC Glucose POC Glucose (other) 98 Lactate Calcium 8.2 L POC Ioniz Calcium Jerald 1.11 L Phosphorus Magnesium 2.3 Total Bilirubin 1.3 H Direct Bilirubin AST 101 H ALT 48 Alkaline Phosphatase 366 H Ammonia Troponin I 0.021 Total Protein 6.6 Albumin 3.3 L Globulin 3.3 Albumin/Globulin Ratio 1.0 Procalcitonin 0.09 Urine Color Urine Appearance Urine pH Ur Specific [place] Urine Protein Urine Glucose (UA) Urine Ketones Urine Blood Urine Nitrite Urine Bilirubin Urine Urobilinogen Ur Leukocyte Esterase Urine WBC (Auto) Urine RBC (Auto) U Hyaline Cast (Auto) U Epithel Cells (Auto) Urine Bacteria (Auto) Urine Yeast Nasal Screen MRSA (PCR) Urine Opiates Screen Ur Methadone, Qual Urine Barbiturates Ur Phencyclidine (PCP) U Amphetamin/Meth Scrn MDMA (Ecstasy) Screen U OH-Alprazolam Confrm U Benzodiazepines Scrn 7-Amino Clonazepam Ur Nordiazepam Confirm U OH-ethylflurazepam U Lorazepam Cnf GC/MS U Oxazepam Confm GC/MS Ur Temazepam Confirm U OH-Triazolam Confirm U OH-Midazolam Confirm Ur Cocaine Metabolite U Marijuana (THC) Screen Drug Screen Comment Ethyl Alcohol mg/dL SARS-CoV-2 (PCR) Influenza Type A (PCR) Influenza Type B (PCR) RSV (RT-PCR) Blood Type Antibody Screen 09/18/21 09/18/21 09/18/21 18:16 18:55 18:55 WBC RBC Hgb POC Hgb Hct POC Hct MCV MCH MCHC RDW Std Deviation RDW Coeff of Polina Plt Count Absolute Nucleated RBC Nucleated RBC % (auto) Neutrophils % (Manual) Lymphocytes % (Manual) Monocytes % (Manual) Eosinophils % (Manual) Basophils % (Manual) Metamyelocytes % (Man) Myelocytes % (Man) Neutrophils # (Manual) Total Absolute Neuts Lymphocytes # (Manual) Total Abs Lymphocytes Monocytes # (Manual) Eosinophils # (Manual) Basophils # (Manual) Metamyelocytes # (Man) Myelocytes # (Manual) Platelet Estimate Giant Platelets Polychromasia Basophilic Stippling Anisocytosis Tear Drop Cells Ovalocytes PT INR APTT PTT Ratio Sample Site POC pH POC pCO2 POC pO2 POC HCO3 POC Base Excess ABG pH ABG pH (Temp Correct) ABG pCO2 ABG pCO2 (Temp Corrct ABG pO2 POC ABG pO2 at Pt Temp ABG HCO3 POC ABG O2 Sat ABG O2 Saturation ABG Base Excess Isak Test Barometric Pressure Oxygen Given O2 Delivery Device POC O2 Rate POC FiO2 Tidal Volume PEEP POC Sodium Sodium POC Potassium Potassium POC Chloride Chloride Carbon Dioxide POC Total CO2 Anion Gap POC Anion Gap POC BUN BUN Creatinine POC Creatinine Est Cr Clr Drug Dosing Est GFR ( Amer) Est GFR (Non-Af Amer) BUN/Creatinine Ratio Glucose POC Glucose POC Glucose (other) Lactate Calcium POC Ioniz Calcium Jerald Phosphorus Magnesium Total Bilirubin Direct Bilirubin AST ALT Alkaline Phosphatase Ammonia Troponin I Total Protein Albumin Globulin Albumin/Globulin Ratio Procalcitonin Urine Color Yellow Urine Appearance Cloudy A Urine pH 8.5 H Ur Specific [place] 1.026 Urine Protein 4+ H Urine Glucose (UA) Trace H Urine Ketones Negative Urine Blood 3+ H Urine Nitrite Negative Urine Bilirubin Negative Urine Urobilinogen Negative Ur Leukocyte Esterase Negative Urine WBC (Auto) >30 H Urine RBC (Auto) >30 H U Hyaline Cast (Auto) 10-30 H U Epithel Cells (Auto) 10-20 H Urine Bacteria (Auto) Negative Urine Yeast Not Reportable Nasal Screen MRSA (PCR) Urine Opiates Screen Neg Ur Methadone, Qual Neg Urine Barbiturates Neg Ur Phencyclidine (PCP) Neg U Amphetamin/Meth Scrn Neg MDMA (Ecstasy) Screen Neg U OH-Alprazolam Confrm U Benzodiazepines Scrn Pos H 7-Amino Clonazepam Ur Nordiazepam Confirm U OH-ethylflurazepam U Lorazepam Cnf GC/MS U Oxazepam Confm GC/MS Ur Temazepam Confirm U OH-Triazolam Confirm U OH-Midazolam Confirm Ur Cocaine Metabolite Neg U Marijuana (THC) Screen Neg Drug Screen Comment Ethyl Alcohol mg/dL SARS-CoV-2 (PCR) POSITIVE A* Influenza Type A (PCR) Negative Influenza Type B (PCR) Negative RSV (RT-PCR) Negative Blood Type Antibody Screen 09/18/21 09/18/21 09/18/21 18:55 19:47 20:08 WBC RBC Hgb POC Hgb 13.6 Hct POC Hct 40 MCV MCH MCHC RDW Std Deviation RDW Coeff of Polina Plt Count Absolute Nucleated RBC Nucleated RBC % (auto) Neutrophils % (Manual) Lymphocytes % (Manual) Monocytes % (Manual) Eosinophils % (Manual) Basophils % (Manual) Metamyelocytes % (Man) Myelocytes % (Man) Neutrophils # (Manual) Total Absolute Neuts Lymphocytes # (Manual) Total Abs Lymphocytes Monocytes # (Manual) Eosinophils # (Manual) Basophils # (Manual) Metamyelocytes # (Man) Myelocytes # (Manual) Platelet Estimate Giant Platelets Polychromasia Basophilic Stippling Anisocytosis Tear Drop Cells Ovalocytes PT INR APTT PTT Ratio Sample Site POC pH POC pCO2 POC pO2 POC HCO3 POC Base Excess ABG pH 7.30 L ABG pH (Temp Correct) ABG pCO2 43 ABG pCO2 (Temp Corrct ABG pO2 89 POC ABG pO2 at Pt Temp ABG HCO3 21 POC ABG O2 Sat ABG O2 Saturation 96.5 H ABG Base Excess -5.8 Isak Test POS Barometric Pressure 729.1 Oxygen Given 40% FiO2 O2 Delivery Device POC O2 Rate POC FiO2 Tidal Volume PEEP POC Sodium 141 Sodium POC Potassium 4.7 Potassium POC Chloride 105 Chloride Carbon Dioxide POC Total CO2 26 Anion Gap POC Anion Gap 15.0 L POC BUN 29 H BUN Creatinine POC Creatinine 1.2 Est Cr Clr Drug Dosing Est GFR ( Amer) Est GFR (Non-Af Amer) BUN/Creatinine Ratio Glucose POC Glucose POC Glucose (other) 103 H Lactate Calcium POC Ioniz Calcium Jerald 1.17 Phosphorus Magnesium Total Bilirubin Direct Bilirubin AST ALT Alkaline Phosphatase Ammonia Troponin I Total Protein Albumin Globulin Albumin/Globulin Ratio Procalcitonin Urine Color Urine Appearance Urine pH Ur Specific [place] Urine Protein Urine Glucose (UA) Urine Ketones Urine Blood Urine Nitrite Urine Bilirubin Urine Urobilinogen Ur Leukocyte Esterase Urine WBC (Auto) Urine RBC (Auto) U Hyaline Cast (Auto) U Epithel Cells (Auto) Urine Bacteria (Auto) Urine Yeast Nasal Screen MRSA (PCR) Urine Opiates Screen Ur Methadone, Qual Urine Barbiturates Ur Phencyclidine (PCP) U Amphetamin/Meth Scrn MDMA (Ecstasy) Screen U OH-Alprazolam Confrm Pending U Benzodiazepines Scrn 7-Amino Clonazepam Pending Ur Nordiazepam Confirm Pending U OH-ethylflurazepam Pending U Lorazepam Cnf GC/MS Pending U Oxazepam Confm GC/MS Pending Ur Temazepam Confirm Pending U OH-Triazolam Confirm Pending U OH-Midazolam Confirm Pending Ur Cocaine Metabolite U Marijuana (THC) Screen Drug Screen Comment Pending Ethyl Alcohol mg/dL SARS-CoV-2 (PCR) Influenza Type A (PCR) Influenza Type B (PCR) RSV (RT-PCR) Blood Type Antibody Screen 09/18/21 09/18/21 09/18/21 20:08 20:09 23:00 WBC RBC Hgb POC Hgb Hct POC Hct MCV MCH MCHC RDW Std Deviation RDW Coeff of Polina Plt Count Absolute Nucleated RBC Nucleated RBC % (auto) Neutrophils % (Manual) Lymphocytes % (Manual) Monocytes % (Manual) Eosinophils % (Manual) Basophils % (Manual) Metamyelocytes % (Man) Myelocytes % (Man) Neutrophils # (Manual) Total Absolute Neuts Lymphocytes # (Manual) Total Abs Lymphocytes Monocytes # (Manual) Eosinophils # (Manual) Basophils # (Manual) Metamyelocytes # (Man) Myelocytes # (Manual) Platelet Estimate Giant Platelets Polychromasia Basophilic Stippling Anisocytosis Tear Drop Cells Ovalocytes PT INR APTT PTT Ratio Sample Site POC pH POC pCO2 POC pO2 POC HCO3 POC Base Excess ABG pH ABG pH (Temp Correct) ABG pCO2 ABG pCO2 (Temp Corrct ABG pO2 POC ABG pO2 at Pt Temp ABG HCO3 POC ABG O2 Sat ABG O2 Saturation ABG Base Excess Isak Test Barometric Pressure Oxygen Given O2 Delivery Device POC O2 Rate POC FiO2 Tidal Volume PEEP POC Sodium Sodium POC Potassium Potassium POC Chloride Chloride Carbon Dioxide POC Total CO2 Anion Gap POC Anion Gap POC BUN BUN Creatinine POC Creatinine Est Cr Clr Drug Dosing Est GFR ( Amer) Est GFR (Non-Af Amer) BUN/Creatinine Ratio Glucose POC Glucose POC Glucose (other) Lactate 0.8 Calcium POC Ioniz Calcium Jerald Phosphorus Magnesium Total Bilirubin Direct Bilirubin AST ALT Alkaline Phosphatase Ammonia Troponin I Total Protein Albumin Globulin Albumin/Globulin Ratio Procalcitonin Urine Color Urine Appearance Urine pH Ur Specific [place] Urine Protein Urine Glucose (UA) Urine Ketones Urine Blood Urine Nitrite Urine Bilirubin Urine Urobilinogen Ur Leukocyte Esterase Urine WBC (Auto) Urine RBC (Auto) U Hyaline Cast (Auto) U Epithel Cells (Auto) Urine Bacteria (Auto) Urine Yeast Nasal Screen MRSA (PCR) Negative Urine Opiates Screen Ur Methadone, Qual Urine Barbiturates Ur Phencyclidine (PCP) U Amphetamin/Meth Scrn MDMA (Ecstasy) Screen U OH-Alprazolam Confrm U Benzodiazepines Scrn 7-Amino Clonazepam Ur Nordiazepam Confirm U OH-ethylflurazepam U Lorazepam Cnf GC/MS U Oxazepam Confm GC/MS Ur Temazepam Confirm U OH-Triazolam Confirm U OH-Midazolam Confirm Ur Cocaine Metabolite U Marijuana (THC) Screen Drug Screen Comment Ethyl Alcohol mg/dL < 3.0 SARS-CoV-2 (PCR) Influenza Type A (PCR) Influenza Type B (PCR) RSV (RT-PCR) Blood Type Antibody Screen 09/19/21 09/19/21 09/19/21 03:32 06:05 06:05 WBC 13.37 H D RBC 4.32 Hgb 11.4 L POC Hgb 10.5 L Hct 37.1 POC Hct 31 L MCV 85.9 MCH 26.4 MCHC 30.7 L RDW Std Deviation 63.7 H RDW Coeff of Polina 20.0 H Plt Count 198 D Absolute Nucleated RBC 0.43 H Nucleated RBC % (auto) 3.2 Neutrophils % (Manual) 62.0 Lymphocytes % (Manual) 16.8 Monocytes % (Manual) 6.2 Eosinophils % (Manual) 2.7 Basophils % (Manual) 3.5 Metamyelocytes % (Man) 5.3 Myelocytes % (Man) 3.5 Neutrophils # (Manual) 8.29 H Total Absolute Neuts 8.29 H Lymphocytes # (Manual) 2.25 Total Abs Lymphocytes 2.25 Monocytes # (Manual) 0.83 H Eosinophils # (Manual) 0.36 Basophils # (Manual) 0.47 H Metamyelocytes # (Man) 0.71 H Myelocytes # (Manual) 0.47 H Platelet Estimate Increased H Giant Platelets 1+ Polychromasia Basophilic Stippling Anisocytosis Present Tear Drop Cells 2+ Ovalocytes 1+ PT INR APTT PTT Ratio Sample Site R Radial POC pH 7.43 POC pCO2 33 L POC pO2 87 POC HCO3 22 POC Base Excess -2.0 ABG pH ABG pH (Temp Correct) 7.432 ABG pCO2 ABG pCO2 (Temp Corrct 33 L ABG pO2 POC ABG pO2 at Pt Temp 87 ABG HCO3 POC ABG O2 Sat 97.0 H ABG O2 Saturation ABG Base Excess Isak Test Pass Barometric Pressure Oxygen Given O2 Delivery Device Ventilator POC O2 Rate 20 POC FiO2 35 Tidal Volume 360 PEEP 5 POC Sodium 141 Sodium 141 POC Potassium 4.3 Potassium 4.2 POC Chloride Chloride 112 H Carbon Dioxide 22 POC Total CO2 23 L Anion Gap 7.0 POC Anion Gap POC BUN BUN 37 H Creatinine 1.58 H POC Creatinine Est Cr Clr Drug Dosing 29.8 Est GFR ( Amer) 39.7 Est GFR (Non-Af Amer) 34.2 BUN/Creatinine Ratio 23.2 H Glucose 122 H POC Glucose POC Glucose (other) Lactate Calcium 8.1 L POC Ioniz Calcium Jerald Phosphorus 6.2 H Magnesium 2.2 Total Bilirubin 1.7 H Direct Bilirubin 1.0 H AST 78 H ALT 42 Alkaline Phosphatase 279 H D Ammonia Troponin I Total Protein 5.6 L Albumin 3.0 L Globulin Albumin/Globulin Ratio Procalcitonin Urine Color Urine Appearance Urine pH Ur Specific [place] Urine Protein Urine Glucose (UA) Urine Ketones Urine Blood Urine Nitrite Urine Bilirubin Urine Urobilinogen Ur Leukocyte Esterase Urine WBC (Auto) Urine RBC (Auto) U Hyaline Cast (Auto) U Epithel Cells (Auto) Urine Bacteria (Auto) Urine Yeast Nasal Screen MRSA (PCR) Urine Opiates Screen Ur Methadone, Qual Urine Barbiturates Ur Phencyclidine (PCP) U Amphetamin/Meth Scrn MDMA (Ecstasy) Screen U OH-Alprazolam Confrm U Benzodiazepines Scrn 7-Amino Clonazepam Ur Nordiazepam Confirm U OH-ethylflurazepam U Lorazepam Cnf GC/MS U Oxazepam Confm GC/MS Ur Temazepam Confirm U OH-Triazolam Confirm U OH-Midazolam Confirm Ur Cocaine Metabolite U Marijuana (THC) Screen Drug Screen Comment Ethyl Alcohol mg/dL SARS-CoV-2 (PCR) Influenza Type A (PCR) Influenza Type B (PCR) RSV (RT-PCR) Blood Type Antibody Screen 09/19/21 09/19/21 09/19/21 06:05 06:05 11:43 WBC RBC Hgb POC Hgb Hct POC Hct MCV MCH MCHC RDW Std Deviation RDW Coeff of Polina Plt Count Absolute Nucleated RBC Nucleated RBC % (auto) Neutrophils % (Manual) Lymphocytes % (Manual) Monocytes % (Manual) Eosinophils % (Manual) Basophils % (Manual) Metamyelocytes % (Man) Myelocytes % (Man) Neutrophils # (Manual) Total Absolute Neuts Lymphocytes # (Manual) Total Abs Lymphocytes Monocytes # (Manual) Eosinophils # (Manual) Basophils # (Manual) Metamyelocytes # (Man) Myelocytes # (Manual) Platelet Estimate Giant Platelets Polychromasia Basophilic Stippling Anisocytosis Tear Drop Cells Ovalocytes PT INR APTT 33.7 H PTT Ratio 1.3 Sample Site POC pH POC pCO2 POC pO2 POC HCO3 POC Base Excess ABG pH ABG pH (Temp Correct) ABG pCO2 ABG pCO2 (Temp Corrct ABG pO2 POC ABG pO2 at Pt Temp ABG HCO3 POC ABG O2 Sat ABG O2 Saturation ABG Base Excess Isak Test Barometric Pressure Oxygen Given O2 Delivery Device POC O2 Rate POC FiO2 Tidal Volume PEEP POC Sodium Sodium POC Potassium Potassium POC Chloride Chloride Carbon Dioxide POC Total CO2 Anion Gap POC Anion Gap POC BUN BUN Creatinine POC Creatinine Est Cr Clr Drug Dosing Est GFR ( Amer) Est GFR (Non-Af Amer) BUN/Creatinine Ratio Glucose POC Glucose 134 H POC Glucose (other) Lactate Calcium POC Ioniz Calcium Jerald Phosphorus Magnesium Total Bilirubin Direct Bilirubin AST ALT Alkaline Phosphatase Ammonia 44.0 H Troponin I Total Protein Albumin Globulin Albumin/Globulin Ratio Procalcitonin Urine Color Urine Appearance Urine pH Ur Specific [place] Urine Protein Urine Glucose (UA) Urine Ketones Urine Blood Urine Nitrite Urine Bilirubin Urine Urobilinogen Ur Leukocyte Esterase Urine WBC (Auto) Urine RBC (Auto) U Hyaline Cast (Auto) U Epithel Cells (Auto) Urine Bacteria (Auto) Urine Yeast Nasal Screen MRSA (PCR) Urine Opiates Screen Ur Methadone, Qual Urine Barbiturates Ur Phencyclidine (PCP) U Amphetamin/Meth Scrn MDMA (Ecstasy) Screen U OH-Alprazolam Confrm U Benzodiazepines Scrn 7-Amino Clonazepam Ur Nordiazepam Confirm U OH-ethylflurazepam U Lorazepam Cnf GC/MS U Oxazepam Confm GC/MS Ur Temazepam Confirm U OH-Triazolam Confirm U OH-Midazolam Confirm Ur Cocaine Metabolite U Marijuana (THC) Screen Drug Screen Comment Ethyl Alcohol mg/dL SARS-CoV-2 (PCR) Influenza Type A (PCR) Influenza Type B (PCR) RSV (RT-PCR) Blood Type Antibody Screen Medications Administered Current Inpatient Medications Heparin Sodium/Dextrose (Heparin Sodium/Dextrose) 25,000 units in 500 mls @ 16 mls/hr IV .Q24H PATRICIA; Protocol Stop: 10/18/21 20:29 Last Titration: 09/19/21 08:40 Dose: 800 units/hr, 16 mls/hr Documented by: Dexamethasone 6 mg/ Syringe 1.5 mls @ 1 mls/min IV Q24H PATRICIA Stop: 10/19/21 08:59 Last Admin: 09/19/21 08:50 Dose: 1 mls/min Documented by: Lactulose (Lactulose Syrup 20 Gm/30 Ml Udc) 20 gm PO DAILY PATRICIA Stop: 10/19/21 10:29 Last Admin: 09/19/21 11:44 Dose: 20 gm Documented by: Miscellaneous (Icu Protocol For Hyperglycemia) 1 ea N/A PRN PRN; Protocol PRN Reason: Hyperglycemia Protocol Stop: 09/20/21 22:16 Pantoprazole Sodium (Pantoprazole 40 Mg Tab) 40 mg PO BID PATRICIA Stop: 10/19/21 20:59 PG Care Time/CCT Total # of Minutes Spent Total Time Spent with Patient: Total time spent is greater than 50% in coordination of care (as documented) at patient's floor/unit and/or counseling patient: Coding Level of Care Code 83208 Subseq Hosp Care Lvl 3 Diagnoses Admitted to intensive care unit Z78.9 Respiratory failure J96.00 Chronicity: acute Respiratory failure complication: unspecified whether with hypoxia or hypercapnia Bradycardic cardiac arrest R00.1; I46.2 Syncope R55 Syncope type: unspecified COVID-19 U07.1 Other pulmonary embolism and infarction I26.99 Cirrhosis K74.60 Esophageal varices I85.00 Portal hypertension K76.6 Splenomegaly R16.1 Gastric varices I86.4 Myelodysplastic disease C94.6 Reflux esophagitis K21.0 RAFIQ (acute kidney injury) N17.9 Hepatic encephalopathy K72.90 (1) Respiratory failure Chronicity: acute Respiratory failure complication: unspecified whether with hypoxia or hypercapnia Qualified Code(s): J96.00 - Acute respiratory failure, unspecified whether with hypoxia or hypercapnia (2) Syncope Syncope type: unspecified Qualified Code(s): R55 - Syncope and collapse
[2021-09-19 14:50] LABS: Partial Thromboplastin Ratio 1.4; Partial Thromboplastin Time 37.1 Seconds (21.0-31.0)
--- NOTE | 2021-09-19 14:50 | Gastrointestinal Consultation ---
Date of Consultation September 19, 2021 Assessment & Plan (1) Cirrhosis: (2) Hepatic encephalopathy: cirrhosis with ascites and encephalopathy and varices in the setting of cardiac arrest/respiratory failure/covid pneumonia: rule out infectious etiologies for encephalopathy recs: --blood cx's pending --consider diagnostic paracentesis --lactulose daily to TID to achieve 3-4 bowel movements a day --rifaximin 550 mg BID --zinc sulfate 220 mg daily --supportive care --trend daily CBC, CMP, INR Thank you for allowing me to participate in the care of this patient History of Present Illness Attending Physician: Kyler Carrillo DO History of Present Illness 66 yo female with hx chronic diarrhea, cirrhosis decompensated with varices and ascites here after cardiac arrest and with covid pneumonia/respiratory failure. GI consulted for cirrhosis and encephalopathy. She does have a history of gastric varices, last EGD december 2020 with erosions and normal esophagus however. Noted to be mildly anemic on labs hgb 11.4. labs reviewed. Allergies Allergy/AdvReac Type Severity Reaction Status Date / Time No Known Allergies Allergy Verified 09/18/21 17:42 Home Medications Medication Instructions Recorded Confirmed Type cholecalciferol (vitamin D3) 50 2,000 unit PO HS 08/30/18 09/18/21 History mcg (2,000 unit) capsule (Vitamin D3) ruxolitinib 10 mg tablet (Jakafi) 10 mg PO BID 05/25/19 09/18/21 History 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 40 mg tablet,delayed 40 mg PO BID #180 tab 05/02/21 09/18/21 Rx release rivaroxaban 10 mg tablet (Xarelto) 10 mg PO QPM #90 tab 05/02/21 09/18/21 Rx propranolol 10 mg tablet 10 mg PO TID #270 tab 08/26/21 09/18/21 Rx citalopram 20 mg tablet (Celexa) 30 mg PO HS 09/10/21 09/18/21 History furosemide 20 mg tablet 20 mg PO DAILY 09/18/21 09/18/21 History Patient History Medical History Anxiety Cirrhosis Depression Esophageal varices hx banding 2 years ago Gastric varices Hepatomegaly History of blood clots neck, liver > 20 years ago History of DVT (deep vein thrombosis) RLE - > 20 years ago History of pulmonary embolism > 20 years ago LUQ abdominal pain Myelodysplastic disease follows with Dr. Vergara On anticoagulant therapy Portal hypertension Splenomegaly Upper GI bleed hx Surgical History H/O shoulder surgery Dr. Cornejo for left shoulder manipulation hx History of bone marrow biopsy History of colonoscopy History of esophagogastroduodenoscopy (EGD) most recent 12/25/20 [place] History of liver biopsy History of tubal ligation Family History Father , age 44 Heart disease Myocardial infarction Mother Hypertension Sister Coronary heart disease Mood disorder Sister Mood disorder Sister Mood disorder Sister Mood disorder Sister Mood disorder Sister Mood disorder Sister Mood disorder Brother Alcohol abuse Son , age 26 MVA (motor vehicle accident) Grandmother (Maternal) Breast cancer Aunt Breast cancer Other No family history of adverse response to anesthesia Denies family history of Ovarian cancer Prostate cancer Colorectal cancer Social History Smoking Status: Never smoker Second Hand Exposure: No; Hx Alcohol Use: No Hx Substance Use: No Preferred Language: Citizen Of [place] Communication Ability: Unable Senior Animator Required: No Beliefs That Will Affect Care: None marital status: Current Living Situation: Spouse current occupational status: retired Feels Safe at Home: Yes Childhood Exposure to Second-Hand Smoke: Yes Dental Care, Regularly: Yes Physical Activity Frequency: Does not Exercise Seatbelt Use: always Sunscreen Use: Yes Assistive Devices: None Review of Systems Constitutional: no fever, no chills and no weight loss Eyes: as per Subjective / HPI Ear, Nose, Mouth, Throat: as per Subjective / HPI Respiratory: no dyspnea and no dyspnea on exertion Cardiovascular: no chest pain and no palpitations Gastrointestinal: as per Subjective / HPI Musculoskeletal: no joint pain and no swelling Integumentary: no rash and no lesions Neurologic: no numbness and no paresthesia Psychiatric: no depression and no anxiety Endocrine: no fatigue Hematologic / Lymphatic: no easy bleeding and no easy bruising Results & Data ([facility]) Vital Signs (Past 12 Hours) Vital Signs Temp Pulse Resp BP Pulse Ox 09/19/21 14:00 69 18 97/53 L 93 09/19/21 13:45 71 106/56 L 95 09/19/21 13:30 73 99/42 L 93 09/19/21 13:15 73 104/58 L 94 09/19/21 13:00 72 18 109/56 L 94 09/19/21 12:45 73 102/48 L 93 09/19/21 12:30 73 107/57 L 96 09/19/21 12:15 73 99/51 L 95 09/19/21 12:00 69 16 103/55 L 93 09/19/21 11:45 73 99/52 L 95 09/19/21 11:30 74 96/58 L 93 09/19/21 11:15 69 77/49 L 95 09/19/21 11:00 69 20 92/54 L 97 09/19/21 10:45 66 95/46 L 97 09/19/21 10:30 71 99/50 L 98 09/19/21 10:00 73 16 100/53 L 97 09/19/21 09:45 71 97/54 L 96 09/19/21 09:30 72 102/57 L 98 09/19/21 09:15 73 99/52 L 97 09/19/21 09:01 77 18 98/44 L 98 09/19/21 09:00 77 99 09/19/21 08:46 81 12 128/64 92 09/19/21 08:30 75 12 95/59 L 98 09/19/21 08:15 76 12 121/66 95 09/19/21 08:05 77 16 97 09/19/21 08:00 77 20 128/77 96 09/19/21 07:45 74 20 113/63 97 09/19/21 07:33 37.4 C 09/19/21 07:30 77 24 105/75 96 09/19/21 07:15 81 23 137/72 97 09/19/21 07:00 81 18 116/89 96 09/19/21 06:45 75 21 135/75 98 09/19/21 06:30 73 20 131/74 98 09/19/21 06:15 73 20 142/75 H 98 09/19/21 06:00 55 L 20 133/74 99 09/19/21 05:57 57 L 20 98/57 L 99 09/19/21 05:00 61 20 86/45 L 98 09/19/21 04:00 36.1 C L 64 20 79/47 L 97 09/19/21 03:41 65 20 85/49 L 97 09/19/21 03:28 64 20 97 09/19/21 03:00 64 20 86/48 L 98 PG Care Time/CCT Total # of Minutes Spent Total Time Spent with Patient: Total time spent is greater than 50% in coordination of care (as documented) at patient's floor/unit and/or counseling patient: Coding Level of Care Code None Diagnoses Cirrhosis K74.60 Hepatic encephalopathy K72.90
[2021-09-19 15:03] LABS: BUN Creatinine Ratio 21.7 (10-20); Creatinine Clr Calc Pharmacy 26.4 ml/min; Est GFR (African American) 34.3 ml/min; Est GFR (Non-African American) 29.6 ml/min; Potassium 3.8 mmol/L (3.5-5.1)
[2021-09-19] MEDS ORDERED: NORMOSOL-R 1,000 ML IV ONE (17:00)
--- NOTE | 2021-09-19 17:16 | Nephrology Consultation ---
Date of Consultation September 19, 2021 Assessment & Plan (1) RAFIQ (acute kidney injury): Clinically consistent with ATN and possible HRS. Urine output has been dropping. A fluid challenge with 1 L of IV Normosol over 2 hours will be provided to try to stimulate urine output. If [place]gica BP remains low, I would consider a challenge with IV albumin and the addition of midodrine 5 mg Q 6 hours. Urine studies will be repeated and random urine sodium checked. CT reviewed. Kidneys unobstructed. Wright draining clear yellow urine. Medications are appropriately dosed for kidney function. I reviewed the patient's history and plan of care with Dr. Jenkins this afternoon. Document strict I/O's. Repeat CMP in the AM. (2) Cirrhosis: Current MELD 19. Gastroenterology consultation reviewed. Not enough ascites for diagnostic paracentesis at this time. (3) Myelodysplastic disease: Hematology consultation reviewed. Remains on heparin gtt for history of clots. Ruxolitinib held. History of Present Illness Reason for Consultation: RAFIQ Requesting Physician: Kyler Carrillo DO Attending Physician: Kyler Carrillo DO History of Present Illness Belgica Roy is a 66-year-old female with JAK2+ idiopathic myelofibrosis with thrombophilia and protein S deficiency. She is maintained on chronic therapy with Sharad Ruxolitinib. There is an extensive history of blood clots including DVT and PE. Belgica is followed in the hematology clinic by Dr. Vergara. She has been maintained on Xarelto. Recent history includes evidence of portal hypertension including ascites. 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 Belgica recently underwent large volume paracentesis on 09/10. She has been evaluated by a land surveying manager at [facility], [place], operated by [facility] and was planning to complete pretransplant evaluation in the upcoming months. Unfortunately, Belgica suffered a syncopal episode yesterday. She does not recall any of the events leading up to the hospitalization. By report, EMS found the patient to be in a hemodynamically unstable bradycardia. She was intubated and transcutaneously paced for a short period of time. Thankfully, hemodynamics improved on arrival to [facility] and she was able to be extubated today. Levophed gtt provided on admission was weaned off overnight. Evaluation on admission notable for COVID-19 +. CXR demonstrating early ground glass opac ification of both lungs. CT of the abdomen and pelvis does not demonstrate significant [place]ites. [place] [address] is now 13.3. Serum creatinine at baseline is normal at 1.0 mg/dL. Creatinine on admission 1.3 mg/dL. It is now 1.78 mg/dL. CT demonstrated unobstructed kidneys. The kidneys are normal in size and otherwise unremarkable in appearance. UA notable for 4+ protein and 3+ blood. Microscopy demonstrating >30 WBC, >30RBC, and 10-30 hyaline casts. UOP overnight 300+ ml. Wright intact. Urine output has slowed over the past few hours. Belgica has remained in normal sinus rhythm on tele monitor.BP is soft but generally acceptable. Current treatment includes Zosyn, dexamethasone, and Duonebs. Afebrile. Tolerating PO fluids at this time. Belgica felt well at the time of my assessment this afternoon. She denies chest pain. She denies dyspnea at this time. No edema or fluid retention. Cirrhosis complicated by a history of documented varices, encephalopathy, and ascites. Allergies Allergy/AdvReac Type Severity Reaction Status Date / Time No Known Allergies Allergy Verified 09/18/21 17:42 Home Medications Medication Instructions Recorded Confirmed Type cholecalciferol (vitamin D3) 50 2,000 unit PO HS 08/30/18 09/18/21 History mcg (2,000 unit) capsule (Vitamin D3) ruxolitinib 10 mg tablet (Jakafi) 10 mg PO BID 05/25/19 09/18/21 History 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 40 mg tablet,delayed 40 mg PO BID #180 tab 05/02/21 09/18/21 Rx release rivaroxaban 10 mg tablet (Xarelto) 10 mg PO QPM #90 tab 05/02/21 09/18/21 Rx propranolol 10 mg tablet 10 mg PO TID #270 tab 08/26/21 09/18/21 Rx citalopram 20 mg tablet (Celexa) 30 mg PO HS 09/10/21 09/18/21 History furosemide 20 mg tablet 20 mg PO DAILY 09/18/21 09/18/21 History Patient History Medical History Anxiety Cirrhosis Depression Esophageal varices hx banding 2 years ago Gastric varices Hepatomegaly History of blood clots neck, liver > 20 years ago History of DVT (deep vein thrombosis) RLE - > 20 years ago History of pulmonary embolism > 20 years ago LUQ abdominal pain Myelodysplastic disease follows with Dr. Vergara On anticoagulant therapy Portal hypertension Splenomegaly Upper GI bleed hx Surgical History H/O shoulder surgery Dr. Cornejo for left shoulder manipulation hx History of bone marrow biopsy History of colonoscopy History of esophagogastroduodenoscopy (EGD) most recent 12/25/20 [place] History of liver biopsy History of tubal ligation Family History Father , age 44 Heart disease Myocardial infarction Mother Hypertension Sister Coronary heart disease Mood disorder Sister Mood disorder Sister Mood disorder Sister Mood disorder Sister Mood disorder Sister Mood disorder Sister Mood disorder Brother Alcohol abuse Son , age 26 MVA (motor vehicle accident) Grandmother (Maternal) Breast cancer Aunt Breast cancer Other No family history of adverse response to anesthesia Denies family history of Ovarian cancer Prostate cancer Colorectal cancer Social History Smoking Status: Never smoker Second Hand Exposure: No; Hx Alcohol Use: No Hx Substance Use: No Preferred Language: Tajik Communication Ability: Unable Copyist Required: No Beliefs That Will Affect Care: None marital status: Current Living Situation: Spouse current occupational status: retired Feels Safe at Home: Yes Childhood Exposure to Second-Hand Smoke: Yes Dental Care, Regularly: Yes Physical Activity Frequency: Does not Exercise Seatbelt Use: always Sunscreen Use: Yes Assistive Devices: None Review of Systems Review of Systems: All systems reviewed & are unremarkable except as noted in HPI & below Physical Exam Constitutional: well developed and + thin; no acute distress Eyes: + anicteric sclerae; no corneal abnormality ENMT: Mouth: no oral mucosal abnormality and oral mucous membranes not dry Neck: normal visual inspection and trachea midline Respiratory: normal respiratory effort Auscultation: lungs clear to auscultation bilaterally Cardiovascular: Rate/Rhythm: regular rate Heart Sounds: normal S1 and normal S2 Extremities: no edema Gastrointestinal (Abdomen): Inspection/Auscultation: + abdomen distended and normal bowel sounds Percussion/Palpation: normal to percussion; abdomen nontender and abdomen not rigid Musculoskeletal: Extremities: no cyanosis and no clubbing Skin: normal turgor; no lesions Neurologic: Motor/Sensory: no tremor and no asterixis Psychiatric: Orientation: alert and oriented x 3 Results & Data ([facility]) Vital Signs (Past 12 Hours) Vital Signs Temp Pulse Pulse Resp BP BP Pulse Ox 09/19/21 16:25 36.3 C L 70 21 94/54 L 94 09/19/21 16:16 69 16 95 09/19/21 15:30 72 91/37 L 89 L 09/19/21 15:15 71 87/44 L 90 09/19/21 15:04 77 111/58 L 95 09/19/21 15:02 80 92 09/19/21 14:46 74 83/38 L 92 09/19/21 14:30 69 100/51 L 93 09/19/21 14:15 70 97/51 L 93 09/19/21 14:00 69 18 97/53 L 93 09/19/21 13:45 71 106/56 L 95 09/19/21 13:30 73 99/42 L 93 09/19/21 13:15 73 104/58 L 94 09/19/21 13:00 72 18 109/56 L 94 09/19/21 12:45 73 102/48 L 93 09/19/21 12:30 73 107/57 L 96 09/19/21 12:15 73 99/51 L 95 09/19/21 12:00 37 C 69 16 103/55 L 93 09/19/21 11:45 73 99/52 L 95 09/19/21 11:30 74 96/58 L 93 09/19/21 11:15 69 77/49 L 95 09/19/21 11:00 69 20 92/54 L 97 09/19/21 10:45 66 95/46 L 97 09/19/21 10:30 71 99/50 L 98 09/19/21 10:00 73 16 100/53 L 97 09/19/21 09:45 71 97/54 L 96 09/19/21 09:30 72 102/57 L 98 09/19/21 09:15 73 99/52 L 97 09/19/21 09:01 77 18 98/44 L 98 09/19/21 09:00 77 99 09/19/21 08:46 81 12 128/64 92 09/19/21 08:30 75 12 95/59 L 98 09/19/21 08:15 76 12 121/66 95 09/19/21 08:05 77 16 97 09/19/21 08:00 77 20 128/77 96 09/19/21 07:45 74 20 113/63 97 09/19/21 07:33 37.4 C 09/19/21 07:30 77 24 105/75 96 09/19/21 07:15 81 23 137/72 97 09/19/21 07:00 81 18 116/89 96 09/19/21 06:45 75 21 135/75 98 09/19/21 06:30 73 20 131/74 98 09/19/21 06:15 73 20 142/75 H 98 09/19/21 06:00 55 L 20 133/74 99 09/19/21 05:57 57 L 20 98/57 L 99 09/19/21 05:00 61 20 86/45 L 98 Laboratory Results Laboratory Results - last 24 hr 09/18/21 09/18/21 09/18/21 17:23 17:23 17:23 WBC 38.07 H* RBC 5.08 Hgb 13.2 POC Hgb Hct 44.7 POC Hct MCV 88.0 MCH 26.0 MCHC 29.5 L RDW Std Deviation 65.3 H RDW Coeff of Polina 21.1 H Plt Count 439 H Absolute Nucleated RBC 8.01 H Nucleated RBC % (auto) 21.0 Neutrophils % (Manual) 33.3 Lymphocytes % (Manual) 36.7 Monocytes % (Manual) 7.5 Eosinophils % (Manual) 3.3 Basophils % (Manual) 2.5 Metamyelocytes % (Man) 10.0 Myelocytes % (Man) 6.7 Neutrophils # (Manual) 12.68 H Total Absolute Neuts 12.68 H Lymphocytes # (Manual) 13.97 H Total Abs Lymphocytes 13.97 H Monocytes # (Manual) 2.86 H Eosinophils # (Manual) 1.26 H Basophils # (Manual) 0.95 H Metamyelocytes # (Man) 3.81 H Myelocytes # (Manual) 2.55 H Platelet Estimate Giant Platelets Polychromasia 1+ Basophilic Stippling 1+ Anisocytosis Tear Drop Cells 2+ Ovalocytes PT 15.3 H INR 1.6 H APTT 36.6 H PTT Ratio 1.4 Sample Site POC pH POC pCO2 POC pO2 POC HCO3 POC Base Excess ABG pH ABG pH (Temp Correct) ABG pCO2 ABG pCO2 (Temp Corrct ABG pO2 POC ABG pO2 at Pt Temp ABG HCO3 POC ABG O2 Sat ABG O2 Saturation ABG Base Excess Isak Test Barometric Pressure Oxygen Given O2 Delivery Device POC O2 Rate POC FiO2 Tidal Volume PEEP POC Sodium Sodium POC Potassium Potassium POC Chloride Chloride Carbon Dioxide POC Total CO2 Anion Gap POC Anion Gap POC BUN BUN Creatinine POC Creatinine Est Cr Clr Drug Dosing Est GFR ( Amer) Est GFR (Non-Af Amer) BUN/Creatinine Ratio Glucose POC Glucose POC Glucose (other) Lactate Calcium POC Ioniz Calcium Jerald Phosphorus Magnesium Total Bilirubin Direct Bilirubin AST ALT Alkaline Phosphatase Ammonia Troponin I Total Protein Albumin Globulin Albumin/Globulin Ratio Procalcitonin Urine Color Urine Appearance Urine pH Ur Specific [place] Urine Protein Urine Glucose (UA) Urine Ketones Urine Blood Urine Nitrite Urine Bilirubin Urine Urobilinogen Ur Leukocyte Esterase Urine WBC (Auto) Urine RBC (Auto) U Hyaline Cast (Auto) U Epithel Cells (Auto) Urine Bacteria (Auto) Urine Yeast Nasal Screen MRSA (PCR) Urine Opiates Screen Ur Methadone, Qual Urine Barbiturates Ur Phencyclidine (PCP) U Amphetamin/Meth Scrn MDMA (Ecstasy) Screen U OH-Alprazolam Confrm U Benzodiazepines Scrn 7-Amino Clonazepam Ur Nordiazepam Confirm U OH-ethylflurazepam U Lorazepam Cnf GC/MS U Oxazepam Confm GC/MS Ur Temazepam Confirm U OH-Triazolam Confirm U OH-Midazolam Confirm Ur Cocaine Metabolite U Marijuana (THC) Screen Drug Screen Comment Ethyl Alcohol mg/dL SARS-CoV-2 (PCR) Influenza Type A (PCR) Influenza Type B (PCR) RSV (RT-PCR) Blood Type A Positive Antibody Screen NEGATIVE 09/18/21 09/18/21 09/18/21 17:23 17:23 17:35 WBC RBC Hgb POC Hgb 14.6 Hct POC Hct 43 MCV MCH MCHC RDW Std Deviation RDW Coeff of Polina Plt Count Absolute Nucleated RBC Nucleated RBC % (auto) Neutrophils % (Manual) Lymphocytes % (Manual) Monocytes % (Manual) Eosinophils % (Manual) Basophils % (Manual) Metamyelocytes % (Man) Myelocytes % (Man) Neutrophils # (Manual) Total Absolute Neuts Lymphocytes # (Manual) Total Abs Lymphocytes Monocytes # (Manual) Eosinophils # (Manual) Basophils # (Manual) Metamyelocytes # (Man) Myelocytes # (Manual) Platelet Estimate Giant Platelets Polychromasia Basophilic Stippling Anisocytosis Tear Drop Cells Ovalocytes PT INR APTT PTT Ratio Sample Site POC pH POC pCO2 POC pO2 POC HCO3 POC Base Excess ABG pH ABG pH (Temp Correct) ABG pCO2 ABG pCO2 (Temp Corrct ABG pO2 POC ABG pO2 at Pt Temp ABG HCO3 POC ABG O2 Sat ABG O2 Saturation ABG Base Excess Isak Test Barometric Pressure Oxygen Given O2 Delivery Device POC O2 Rate POC FiO2 Tidal Volume PEEP POC Sodium 143 Sodium 141 POC Potassium 4.1 Potassium 4.2 POC Chloride 107 Chloride 111 H Carbon Dioxide 25 POC Total CO2 24 Anion Gap 5.0 POC Anion Gap 16.0 POC BUN 30 H BUN 27 H Creatinine 1.30 H POC Creatinine 1.2 Est Cr Clr Drug Dosing 40.7 Est GFR ( Amer) 50.2 Est GFR (Non-Af Amer) 43.3 BUN/Creatinine Ratio 20.7 H Glucose 102 H POC Glucose POC Glucose (other) 98 Lactate Calcium 8.2 L POC Ioniz Calcium Jerald 1.11 L Phosphorus Magnesium 2.3 Total Bilirubin 1.3 H Direct Bilirubin AST 101 H ALT 48 Alkaline Phosphatase 366 H Ammonia Troponin I 0.021 Total Protein 6.6 Albumin 3.3 L Globulin 3.3 Albumin/Globulin Ratio 1.0 Procalcitonin 0.09 Urine Color Urine Appearance Urine pH Ur Specific [place] Urine Protein Urine Glucose (UA) Urine Ketones Urine Blood Urine Nitrite Urine Bilirubin Urine Urobilinogen Ur Leukocyte Esterase Urine WBC (Auto) Urine RBC (Auto) U Hyaline Cast (Auto) U Epithel Cells (Auto) Urine Bacteria (Auto) Urine Yeast Nasal Screen MRSA (PCR) Urine Opiates Screen Ur Methadone, Qual Urine Barbiturates Ur Phencyclidine (PCP) U Amphetamin/Meth Scrn MDMA (Ecstasy) Screen U OH-Alprazolam Confrm U Benzodiazepines Scrn 7-Amino Clonazepam Ur Nordiazepam Confirm U OH-ethylflurazepam U Lorazepam Cnf GC/MS U Oxazepam Confm GC/MS Ur Temazepam Confirm U OH-Triazolam Confirm U OH-Midazolam Confirm Ur Cocaine Metabolite U Marijuana (THC) Screen Drug Screen Comment Ethyl Alcohol mg/dL SARS-CoV-2 (PCR) Influenza Type A (PCR) Influenza Type B (PCR) RSV (RT-PCR) Blood Type Antibody Screen 09/18/21 09/18/21 09/18/21 18:16 18:55 18:55 WBC RBC Hgb POC Hgb Hct POC Hct MCV MCH MCHC RDW Std Deviation RDW Coeff of Polina Plt Count Absolute Nucleated RBC Nucleated RBC % (auto) Neutrophils % (Manual) Lymphocytes % (Manual) Monocytes % (Manual) Eosinophils % (Manual) Basophils % (Manual) Metamyelocytes % (Man) Myelocytes % (Man) Neutrophils # (Manual) Total Absolute Neuts Lymphocytes # (Manual) Total Abs Lymphocytes Monocytes # (Manual) Eosinophils # (Manual) Basophils # (Manual) Metamyelocytes # (Man) Myelocytes # (Manual) Platelet Estimate Giant Platelets Polychromasia Basophilic Stippling Anisocytosis Tear Drop Cells Ovalocytes PT INR APTT PTT Ratio Sample Site POC pH POC pCO2 POC pO2 POC HCO3 POC Base Excess ABG pH ABG pH (Temp Correct) ABG pCO2 ABG pCO2 (Temp Corrct ABG pO2 POC ABG pO2 at Pt Temp ABG HCO3 POC ABG O2 Sat ABG O2 Saturation ABG Base Excess Isak Test Barometric Pressure Oxygen Given O2 Delivery Device POC O2 Rate POC FiO2 Tidal Volume PEEP POC Sodium Sodium POC Potassium Potassium POC Chloride Chloride Carbon Dioxide POC Total CO2 Anion Gap POC Anion Gap POC BUN BUN Creatinine POC Creatinine Est Cr Clr Drug Dosing Est GFR ( Amer) Est GFR (Non-Af Amer) BUN/Creatinine Ratio Glucose POC Glucose POC Glucose (other) Lactate Calcium POC Ioniz Calcium Jerald Phosphorus Magnesium Total Bilirubin Direct Bilirubin AST ALT Alkaline Phosphatase Ammonia Troponin I Total Protein Albumin Globulin Albumin/Globulin Ratio Procalcitonin Urine Color Yellow Urine Appearance Cloudy A Urine pH 8.5 H Ur Specific [place] 1.026 Urine Protein 4+ H Urine Glucose (UA) Trace H Urine Ketones Negative Urine Blood 3+ H Urine Nitrite Negative Urine Bilirubin Negative Urine Urobilinogen Negative Ur Leukocyte Esterase Negative Urine WBC (Auto) >30 H Urine RBC (Auto) >30 H U Hyaline Cast (Auto) 10-30 H U Epithel Cells (Auto) 10-20 H Urine Bacteria (Auto) Negative Urine Yeast Not Reportable Nasal Screen MRSA (PCR) Urine Opiates Screen Neg Ur Methadone, Qual Neg Urine Barbiturates Neg Ur Phencyclidine (PCP) Neg U Amphetamin/Meth Scrn Neg MDMA (Ecstasy) Screen Neg U OH-Alprazolam Confrm U Benzodiazepines Scrn Pos H 7-Amino Clonazepam Ur Nordiazepam Confirm U OH-ethylflurazepam U Lorazepam Cnf GC/MS U Oxazepam Confm GC/MS Ur Temazepam Confirm U OH-Triazolam Confirm U OH-Midazolam Confirm Ur Cocaine Metabolite Neg U Marijuana (THC) Screen Neg Drug Screen Comment Ethyl Alcohol mg/dL SARS-CoV-2 (PCR) POSITIVE A* Influenza Type A (PCR) Negative Influenza Type B (PCR) Negative RSV (RT-PCR) Negative Blood Type Antibody Screen 09/18/21 09/18/21 09/18/21 18:55 19:47 20:08 WBC RBC Hgb POC Hgb 13.6 Hct POC Hct 40 MCV MCH MCHC RDW Std Deviation RDW Coeff of Polina Plt Count Absolute Nucleated RBC Nucleated RBC % (auto) Neutrophils % (Manual) Lymphocytes % (Manual) Monocytes % (Manual) Eosinophils % (Manual) Basophils % (Manual) Metamyelocytes % (Man) Myelocytes % (Man) Neutrophils # (Manual) Total Absolute Neuts Lymphocytes # (Manual) Total Abs Lymphocytes Monocytes # (Manual) Eosinophils # (Manual) Basophils # (Manual) Metamyelocytes # (Man) Myelocytes # (Manual) Platelet Estimate Giant Platelets Polychromasia Basophilic Stippling Anisocytosis Tear Drop Cells Ovalocytes PT INR APTT PTT Ratio Sample Site POC pH POC pCO2 POC pO2 POC HCO3 POC Base Excess ABG pH 7.30 L ABG pH (Temp Correct) ABG pCO2 43 ABG pCO2 (Temp Corrct ABG pO2 89 POC ABG pO2 at Pt Temp ABG HCO3 21 POC ABG O2 Sat ABG O2 Saturation 96.5 H ABG Base Excess -5.8 Isak Test POS Barometric Pressure 729.1 Oxygen Given 40% FiO2 O2 Delivery Device POC O2 Rate POC FiO2 Tidal Volume PEEP POC Sodium 141 Sodium POC Potassium 4.7 Potassium POC Chloride 105 Chloride Carbon Dioxide POC Total CO2 26 Anion Gap POC Anion Gap 15.0 L POC BUN 29 H BUN Creatinine POC Creatinine 1.2 Est Cr Clr Drug Dosing Est GFR ( Amer) Est GFR (Non-Af Amer) BUN/Creatinine Ratio Glucose POC Glucose POC Glucose (other) 103 H Lactate Calcium POC Ioniz Calcium Jerald 1.17 Phosphorus Magnesium Total Bilirubin Direct Bilirubin AST ALT Alkaline Phosphatase Ammonia Troponin I Total Protein Albumin Globulin Albumin/Globulin Ratio Procalcitonin Urine Color Urine Appearance Urine pH Ur Specific [place] Urine Protein Urine Glucose (UA) Urine Ketones Urine Blood Urine Nitrite Urine Bilirubin Urine Urobilinogen Ur Leukocyte Esterase Urine WBC (Auto) Urine RBC (Auto) U Hyaline Cast (Auto) U Epithel Cells (Auto) Urine Bacteria (Auto) Urine Yeast Nasal Screen MRSA (PCR) Urine Opiates Screen Ur Methadone, Qual Urine Barbiturates Ur Phencyclidine (PCP) U Amphetamin/Meth Scrn MDMA (Ecstasy) Screen U OH-Alprazolam Confrm Pending U Benzodiazepines Scrn 7-Amino Clonazepam Pending Ur Nordiazepam Confirm Pending U OH-ethylflurazepam Pending U Lorazepam Cnf GC/MS Pending U Oxazepam Confm GC/MS Pending Ur Temazepam Confirm Pending U OH-Triazolam Confirm Pending U OH-Midazolam Confirm Pending Ur Cocaine Metabolite U Marijuana (THC) Screen Drug Screen Comment Pending Ethyl Alcohol mg/dL SARS-CoV-2 (PCR) Influenza Type A (PCR) Influenza Type B (PCR) RSV (RT-PCR) Blood Type Antibody Screen 09/18/21 09/18/21 09/18/21 20:08 20:09 23:00 WBC RBC Hgb POC Hgb Hct POC Hct MCV MCH MCHC RDW Std Deviation RDW Coeff of Polina Plt Count Absolute Nucleated RBC Nucleated RBC % (auto) Neutrophils % (Manual) Lymphocytes % (Manual) Monocytes % (Manual) Eosinophils % (Manual) Basophils % (Manual) Metamyelocytes % (Man) Myelocytes % (Man) Neutrophils # (Manual) Total Absolute Neuts Lymphocytes # (Manual) Total Abs Lymphocytes Monocytes # (Manual) Eosinophils # (Manual) Basophils # (Manual) Metamyelocytes # (Man) Myelocytes # (Manual) Platelet Estimate Giant Platelets Polychromasia Basophilic Stippling Anisocytosis Tear Drop Cells Ovalocytes PT INR APTT PTT Ratio Sample Site POC pH POC pCO2 POC pO2 POC HCO3 POC Base Excess ABG pH ABG pH (Temp Correct) ABG pCO2 ABG pCO2 (Temp Corrct ABG pO2 POC ABG pO2 at Pt Temp ABG HCO3 POC ABG O2 Sat ABG O2 Saturation ABG Base Excess Isak Test Barometric Pressure Oxygen Given O2 Delivery Device POC O2 Rate POC FiO2 Tidal Volume PEEP POC Sodium Sodium POC Potassium Potassium POC Chloride Chloride Carbon Dioxide POC Total CO2 Anion Gap POC Anion Gap POC BUN BUN Creatinine POC Creatinine Est Cr Clr Drug Dosing Est GFR ( Amer) Est GFR (Non-Af Amer) BUN/Creatinine Ratio Glucose POC Glucose POC Glucose (other) Lactate 0.8 Calcium POC Ioniz Calcium Jerald Phosphorus Magnesium Total Bilirubin Direct Bilirubin AST ALT Alkaline Phosphatase Ammonia Troponin I Total Protein Albumin Globulin Albumin/Globulin Ratio Procalcitonin Urine Color Urine Appearance Urine pH Ur Specific [place] Urine Protein Urine Glucose (UA) Urine Ketones Urine Blood Urine Nitrite Urine Bilirubin Urine Urobilinogen Ur Leukocyte Esterase Urine WBC (Auto) Urine RBC (Auto) U Hyaline Cast (Auto) U Epithel Cells (Auto) Urine Bacteria (Auto) Urine Yeast Nasal Screen MRSA (PCR) Negative Urine Opiates Screen Ur Methadone, Qual Urine Barbiturates Ur Phencyclidine (PCP) U Amphetamin/Meth Scrn MDMA (Ecstasy) Screen U OH-Alprazolam Confrm U Benzodiazepines Scrn 7-Amino Clonazepam Ur Nordiazepam Confirm U OH-ethylflurazepam U Lorazepam Cnf GC/MS U Oxazepam Confm GC/MS Ur Temazepam Confirm U OH-Triazolam Confirm U OH-Midazolam Confirm Ur Cocaine Metabolite U Marijuana (THC) Screen Drug Screen Comment Ethyl Alcohol mg/dL < 3.0 SARS-CoV-2 (PCR) Influenza Type A (PCR) Influenza Type B (PCR) RSV (RT-PCR) Blood Type Antibody Screen 09/19/21 09/19/21 09/19/21 03:32 06:05 06:05 WBC 13.37 H D RBC 4.32 Hgb 11.4 L POC Hgb 10.5 L Hct 37.1 POC Hct 31 L MCV 85.9 MCH 26.4 MCHC 30.7 L RDW Std Deviation 63.7 H RDW Coeff of Polina 20.0 H Plt Count 198 D Absolute Nucleated RBC 0.43 H Nucleated RBC % (auto) 3.2 Neutrophils % (Manual) 62.0 Lymphocytes % (Manual) 16.8 Monocytes % (Manual) 6.2 Eosinophils % (Manual) 2.7 Basophils % (Manual) 3.5 Metamyelocytes % (Man) 5.3 Myelocytes % (Man) 3.5 Neutrophils # (Manual) 8.29 H Total Absolute Neuts 8.29 H Lymphocytes # (Manual) 2.25 Total Abs Lymphocytes 2.25 Monocytes # (Manual) 0.83 H Eosinophils # (Manual) 0.36 Basophils # (Manual) 0.47 H Metamyelocytes # (Man) 0.71 H Myelocytes # (Manual) 0.47 H Platelet Estimate Increased H Giant Platelets 1+ Polychromasia Basophilic Stippling Anisocytosis Present Tear Drop Cells 2+ Ovalocytes 1+ PT INR APTT PTT Ratio Sample Site R Radial POC pH 7.43 POC pCO2 33 L POC pO2 87 POC HCO3 22 POC Base Excess -2.0 ABG pH ABG pH (Temp Correct) 7.432 ABG pCO2 ABG pCO2 (Temp Corrct 33 L ABG pO2 POC ABG pO2 at Pt Temp 87 ABG HCO3 POC ABG O2 Sat 97.0 H ABG O2 Saturation ABG Base Excess Isak Test Pass Barometric Pressure Oxygen Given O2 Delivery Device Ventilator POC O2 Rate 20 POC FiO2 35 Tidal Volume 360 PEEP 5 POC Sodium 141 Sodium 141 POC Potassium 4.3 Potassium 4.2 POC Chloride Chloride 112 H Carbon Dioxide 22 POC Total CO2 23 L Anion Gap 7.0 POC Anion Gap POC BUN BUN 37 H Creatinine 1.58 H POC Creatinine Est Cr Clr Drug Dosing 29.8 Est GFR ( Amer) 39.7 Est GFR (Non-Af Amer) 34.2 BUN/Creatinine Ratio 23.2 H Glucose 122 H POC Glucose POC Glucose (other) Lactate Calcium 8.1 L POC Ioniz Calcium Jerald Phosphorus 6.2 H Magnesium 2.2 Total Bilirubin 1.7 H Direct Bilirubin 1.0 H AST 78 H ALT 42 Alkaline Phosphatase 279 H D Ammonia Troponin I Total Protein 5.6 L Albumin 3.0 L Globulin Albumin/Globulin Ratio Procalcitonin Urine Color Urine Appearance Urine pH Ur Specific [place] Urine Protein Urine Glucose (UA) Urine Ketones Urine Blood Urine Nitrite Urine Bilirubin Urine Urobilinogen Ur Leukocyte Esterase Urine WBC (Auto) Urine RBC (Auto) U Hyaline Cast (Auto) U Epithel Cells (Auto) Urine Bacteria (Auto) Urine Yeast Nasal Screen MRSA (PCR) Urine Opiates Screen Ur Methadone, Qual Urine Barbiturates Ur Phencyclidine (PCP) U Amphetamin/Meth Scrn MDMA (Ecstasy) Screen U OH-Alprazolam Confrm U Benzodiazepines Scrn 7-Amino Clonazepam Ur Nordiazepam Confirm U OH-ethylflurazepam U Lorazepam Cnf GC/MS U Oxazepam Confm GC/MS Ur Temazepam Confirm U OH-Triazolam Confirm U OH-Midazolam Confirm Ur Cocaine Metabolite U Marijuana (THC) Screen Drug Screen Comment Ethyl Alcohol mg/dL SARS-CoV-2 (PCR) Influenza Type A (PCR) Influenza Type B (PCR) RSV (RT-PCR) Blood Type Antibody Screen 09/19/21 09/19/21 09/19/21 06:05 06:05 11:43 WBC RBC Hgb POC Hgb Hct POC Hct MCV MCH MCHC RDW Std Deviation RDW Coeff of Polina Plt Count Absolute Nucleated RBC Nucleated RBC % (auto) Neutrophils % (Manual) Lymphocytes % (Manual) Monocytes % (Manual) Eosinophils % (Manual) Basophils % (Manual) Metamyelocytes % (Man) Myelocytes % (Man) Neutrophils # (Manual) Total Absolute Neuts Lymphocytes # (Manual) Total Abs Lymphocytes Monocytes # (Manual) Eosinophils # (Manual) Basophils # (Manual) Metamyelocytes # (Man) Myelocytes # (Manual) Platelet Estimate Giant Platelets Polychromasia Basophilic Stippling Anisocytosis Tear Drop Cells Ovalocytes PT INR APTT 33.7 H PTT Ratio 1.3 Sample Site POC pH POC pCO2 POC pO2 POC HCO3 POC Base Excess ABG pH ABG pH (Temp Correct) ABG pCO2 ABG pCO2 (Temp Corrct ABG pO2 POC ABG pO2 at Pt Temp ABG HCO3 POC ABG O2 Sat ABG O2 Saturation ABG Base Excess Isak Test Barometric Pressure Oxygen Given O2 Delivery Device POC O2 Rate POC FiO2 Tidal Volume PEEP POC Sodium Sodium POC Potassium Potassium POC Chloride Chloride Carbon Dioxide POC Total CO2 Anion Gap POC Anion Gap POC BUN BUN Creatinine POC Creatinine Est Cr Clr Drug Dosing Est GFR ( Amer) Est GFR (Non-Af Amer) BUN/Creatinine Ratio Glucose POC Glucose 134 H POC Glucose (other) Lactate Calcium POC Ioniz Calcium Jerald Phosphorus Magnesium Total Bilirubin Direct Bilirubin AST ALT Alkaline Phosphatase Ammonia 44.0 H Troponin I Total Protein Albumin Globulin Albumin/Globulin Ratio Procalcitonin Urine Color Urine Appearance Urine pH Ur Specific [place] Urine Protein Urine Glucose (UA) Urine Ketones Urine Blood Urine Nitrite Urine Bilirubin Urine Urobilinogen Ur Leukocyte Esterase Urine WBC (Auto) Urine RBC (Auto) U Hyaline Cast (Auto) U Epithel Cells (Auto) Urine Bacteria (Auto) Urine Yeast Nasal Screen MRSA (PCR) Urine Opiates Screen Ur Methadone, Qual Urine Barbiturates Ur Phencyclidine (PCP) U Amphetamin/Meth Scrn MDMA (Ecstasy) Screen U OH-Alprazolam Confrm U Benzodiazepines Scrn 7-Amino Clonazepam Ur Nordiazepam Confirm U OH-ethylflurazepam U Lorazepam Cnf GC/MS U Oxazepam Confm GC/MS Ur Temazepam Confirm U OH-Triazolam Confirm U OH-Midazolam Confirm Ur Cocaine Metabolite U Marijuana (THC) Screen Drug Screen Comment Ethyl Alcohol mg/dL SARS-CoV-2 (PCR) Influenza Type A (PCR) Influenza Type B (PCR) RSV (RT-PCR) Blood Type Antibody Screen 09/19/21 09/19/21 09/19/21 14:23 14:23 16:27 WBC RBC Hgb POC Hgb Hct POC Hct MCV MCH MCHC RDW Std Deviation RDW Coeff of Polina Plt Count Absolute Nucleated RBC Nucleated RBC % (auto) Neutrophils % (Manual) Lymphocytes % (Manual) Monocytes % (Manual) Eosinophils % (Manual) Basophils % (Manual) Metamyelocytes % (Man) Myelocytes % (Man) Neutrophils # (Manual) Total Absolute Neuts Lymphocytes # (Manual) Total Abs Lymphocytes Monocytes # (Manual) Eosinophils # (Manual) Basophils # (Manual) Metamyelocytes # (Man) Myelocytes # (Manual) Platelet Estimate Giant Platelets Polychromasia Basophilic Stippling Anisocytosis Tear Drop Cells Ovalocytes PT INR APTT 37.1 H PTT Ratio 1.4 Sample Site POC pH POC pCO2 POC pO2 POC HCO3 POC Base Excess ABG pH ABG pH (Temp Correct) ABG pCO2 ABG pCO2 (Temp Corrct ABG pO2 POC ABG pO2 at Pt Temp ABG HCO3 POC ABG O2 Sat ABG O2 Saturation ABG Base Excess Isak Test Barometric Pressure Oxygen Given O2 Delivery Device POC O2 Rate POC FiO2 Tidal Volume PEEP POC Sodium Sodium 140 POC Potassium Potassium 3.8 POC Chloride Chloride 111 H Carbon Dioxide 22 POC Total CO2 Anion Gap 7.0 POC Anion Gap POC BUN BUN 39 H Creatinine 1.78 H POC Creatinine Est Cr Clr Drug Dosing 26.4 Est GFR ( Amer) 34.3 Est GFR (Non-Af Amer) 29.6 BUN/Creatinine Ratio 21.7 H Glucose 147 H POC Glucose 130 H POC Glucose (other) Lactate Calcium 8.0 L POC Ioniz Calcium Jerald Phosphorus Magnesium Total Bilirubin Direct Bilirubin AST ALT Alkaline Phosphatase Ammonia Troponin I Total Protein Albumin Globulin Albumin/Globulin Ratio Procalcitonin Urine Color Urine Appearance Urine pH Ur Specific [place] Urine Protein Urine Glucose (UA) Urine Ketones Urine Blood Urine Nitrite Urine Bilirubin Urine Urobilinogen Ur Leukocyte Esterase Urine WBC (Auto) Urine RBC (Auto) U Hyaline Cast (Auto) U Epithel Cells (Auto) Urine Bacteria (Auto) Urine Yeast Nasal Screen MRSA (PCR) Urine Opiates Screen Ur Methadone, Qual Urine Barbiturates Ur Phencyclidine (PCP) U Amphetamin/Meth Scrn MDMA (Ecstasy) Screen U OH-Alprazolam Confrm U Benzodiazepines Scrn 7-Amino Clonazepam Ur Nordiazepam Confirm U OH-ethylflurazepam U Lorazepam Cnf GC/MS U Oxazepam Confm GC/MS Ur Temazepam Confirm U OH-Triazolam Confirm U OH-Midazolam Confirm Ur Cocaine Metabolite U Marijuana (THC) Screen Drug Screen Comment Ethyl Alcohol mg/dL SARS-CoV-2 (PCR) Influenza Type A (PCR) Influenza Type B (PCR) RSV (RT-PCR) Blood Type Antibody Screen PG Care Time/CCT Total # of Minutes Spent Total Time Spent with Patient: Total time spent is greater than 50% in coordination of care (as documented) at patient's floor/unit and/or counseling patient: Coding Level of Care Code 52642 Inpt Consult Level 4 Diagnoses Cirrhosis K74.60 Myelodysplastic disease C94.6 RAFIQ (acute kidney injury) N17.9
--- NOTE | 2021-09-19 18:16 | Electrocardiogram Report ---
Test Reason : Blood Pressure : / mmHG Vent. Rate : 076 BPM Atrial Rate : 076 BPM P-R Int : 186 ms QRS Dur : 082 ms QT Int : 436 ms P-R-T Axes : 055 101 008 degrees QTc Int : 490 ms Poor data quality, interpretation may be adversely affected Normal sinus rhythm Nonspecific ST and T wave abnormality Abnormal ECG When compared with ECG of 05-JAN-2018 12:50, T wave inversion no longer evident in Inferior leads T wave inversion no longer evident in Lateral leads QT has lengthened Confirmed by Surjit Paniagua ([id number]) on 09/19/2021 6:15:38 PM Referred By: REFERRED SELF Confirmed By:Keith Paniagua
--- NOTE | 2021-09-19 18:19 | Electrocardiogram Report ---
Test Reason : Blood Pressure : / mmHG Vent. Rate : 059 BPM Atrial Rate : 059 BPM P-R Int : 162 ms QRS Dur : 078 ms QT Int : 524 ms P-R-T Axes : 063 050 058 degrees QTc Int : 518 ms Sinus bradycardia Prolonged QT Abnormal ECG When compared with ECG of 18-SEP-2021 18:14, (unconfirmed) Nonspecific T wave abnormality no longer evident in Inferior leads Confirmed by Surjit Paniagua ([id number]) on 09/19/2021 6:19:29 PM Referred By: REFERRED SELF Confirmed By:Keith Paniagua
[2021-09-19] MEDS: PANTOprazole 40 MG TAB PO SCH (20:23)
[2021-09-19 22:17] LABS: Partial Thromboplastin Ratio 1.8
[2021-09-19 22:39] LABS: Partial Thromboplastin Time 46.7 Seconds (21.0-31.0)
[2021-09-20 06:35] LABS: Mean Corpuscular Hgb Conc 31.2 g/dL (32-36); Nucleated RBC # (auto) 0.14 K/uL (0-0); Nucleated RBC % (auto) 2.4 %
[2021-09-20] MEDS: HEPARIN SODIUM/DEXTROSE 25,000 UNITS/500 ML BAG IV SCH (06:35)
[2021-09-20 06:51] LABS: Hematocrit (blood only) 31.4 % (37-47); Hemoglobin 9.8 g/dL (12.0-16.0); INR 1.2 (0.9-1.1); Mean Corpuscular Hemoglobin 26.8 pg (25-34); Partial Thromboplastin Ratio 1.6; Partial Thromboplastin Time 41.9 Seconds (21.0-31.0); Prothrombin Time 12.2 Seconds (9.0-12.0); RDW Coefficient of Variation 19.7 % (11.5-14.5); RDW Standard Deviation 62.6 fL (36.4-46.3); Red Blood Count 3.65 M/uL (4.2-5.4); White Blood Count 5.79 K/uL (4.8-10.8)
[2021-09-20 07:08] LABS: Anisocytosis Present; Basophils # (auto) 0.13 K/uL (0-0.2); Basophils % (auto) 2.2 %; Eosinophils # (auto) 0.04 K/uL (0-0.5); Eosinophils % (auto) 0.7 %; Immature Granulocytes % (auto) 8.6 %; Lymphocytes # (auto) 0.76 K/uL (1.2-3.4); Lymphocytes % (auto) 13.1 %; Monocytes # (auto) 0.64 K/uL (0.11-0.59); Monocytes % (auto) 11.1 %; Neutrophils # (auto) 3.72 K/uL (1.4-6.5); Neutrophils % (auto) 64.3 %; Platelet Count 101 K/uL (130-400); Platelet Estimate Decreased (Normal); Tear Drop Cells 1+
[2021-09-20 07:28] LABS: Albumin Level 2.9 gm/dl (3.4-5.0); BUN Creatinine Ratio 24.9 (10-20); Bilirubin,Total 0.7 mg/dl (0.2-1); Calcium 8.2 mg/dl (8.5-10.1); Creatinine Clr Calc Pharmacy 33.1 ml/min; Est GFR (African American) 45.1 ml/min; Est GFR (Non-African American) 38.9 ml/min; Magnesium 2.4 mg/dl (1.8-2.4); Phosphorus 4.4 mg/dl (2.5-4.9); Potassium 3.2 mmol/L (3.5-5.1); Total Protein 5.7 gm/dl (6.4-8.2)
[2021-09-20 08:22] LABS: Bilirubin Direct 0.3 mg/dl (0-0.2)
[2021-09-20] MEDS: LACTULOSE SYRUP 20 GM/30 ML UDC PO SCH (08:52)
[2021-09-20] MEDS: PANTOprazole 40 MG TAB PO SCH ×2 (08:52→20:24)
[2021-09-20 09:53] LABS: Appearance Urine Clear (Clear); Bacteria Urine Automated Negative (Negative); Bilirubin Urine Negative (Negative); Blood Urine 3+ (Negative); Color Urine Yellow; Epithelial Cell Urine Auto >30 /lpf (0-5); Glucose Urine UA Negative (Negative); Ketones Urine Negative (Negative); Leukocyte Esterase Urine Trace (Negative); Nitrite Urine Negative (Negative); Protein Urine Trace (Negative); Specific Gravity Urine 1.022 (1.000-1.030); Urobilinogen Urine Negative (Negative)
[2021-09-20 10:02] LABS: RBC Urine Automated >30 /hpf (0-4)
[2021-09-20 10:13] LABS: Creatinine Urine Random 96.8 mg/dl
[2021-09-20 11:34] LABS: Partial Thromboplastin Ratio 3.7
[2021-09-20 11:35] LABS: Partial Thromboplastin Time 96.3 Seconds (21.0-31.0)
--- NOTE | 2021-09-20 12:08 | Hospitalist Progress Note ---
Date of Service September 20, 2021 Assessment & Plan (1) Respiratory failure: Plan: Respiratory failure/COVID-19 pneumonia/possible aspiration- stop Zosyn and Azithromycin, no concerns for bacterial pneumonia, breathing well room air and WBC normal stop Dexamethasone as she is 95% on room air, no distress, lungs clear on x-ray (2) RAFIQ (acute kidney injury): Plan: Cr peaked at 1.7 yesterday, down to 1.4 today after fluid challenge BP low normal, defer to nephrology if she needs midodrine and albumin ATN vs possible HRS electrolytes stable (3) Acute anemia: Plan: Hb down to 9.8 this morning, was 13 on admission two days ago no melena or gross blood no back pain to suggest hematoma does have known esophageal and gastric varices heme occult stools heparin drip, will stop if melena or heme positive hold on resuming Xarelto until this issue is clarified (4) Bradycardic cardiac arrest: Plan: echo shows preserved EF, normal wall motion elevated RV pressures at 60mmHg (5) Hepatic encephalopathy: Plan: ammonia 44 on admission, per records, her herpetology teacher was concerned with her having "brain fog" recently Lactulose 20mg qAM ammonia down to 33 today and she is more alert, less confused (6) Syncope: Plan: Syncope- Bradycardia cardiac arrest, acute respiratory failure unclear what happened, no issues here on monitor respiratory status is stable HR and BP stable continue to monitor on tele will need PT/OT (7) COVID-19: Plan: See above no true symptoms, not hypoxic, stop Dexamethasone (8) Other pulmonary embolism and infarction: Plan: Place heparin IV low-dose without bolus h/o such start back on Coumadin tomorrow (9) Cirrhosis: Plan: Cirrhosis/esophageal varices/portal hypertension/splenomegaly/gastric varic es/ascites- d/w radiology, only has about 1L of fluid in abdomen, hold on paracentesis for now ammonia is 33 continue (10) Esophageal varices: Plan: See above (11) Portal hypertension: Plan: See above (12) Splenomegaly: Plan: See above (13) Gastric varices: Plan: See above (14) Myelodysplastic disease: Plan: Follows in outpatient setting with hematology oncology Dr. Vergara appreciate his consult (15) Reflux esophagitis: Plan: Placed on famotidine 20 mg IV every 12 hours Admission and Anticipated Discharge Date Admission Date: September 18, 2021 Subjective patient doing well today, she is more alert and conversive, not confused still no recollection of what happened at home reviewed labs, Cr down to 1.4, ammonia down to 33, WBC normal, Hb is dropping though, down to 9.8 from 11, was 13 on admission no dark stools, she says they are orange, will heme occult on the heparin drip with plans for Xarelto but will hold for now breathing well on room air, no cough less abdominal pain, she is very hungry which she says is rare for her she is making urine via kyle, will have RN remove it Review of Systems Review of Systems: All systems reviewed & are unremarkable except as noted in Subjective Constitutional: no fever, no fatigue and no weakness Respiratory: no cough, no dyspnea and no dyspnea on exertion Cardiovascular: no chest pain, no palpitations and no edema Gastrointestinal: + abdominal pain (mild); no nausea, no vomiting, no constipation, no diarrhea/loose stools, no blood in stools and no melena Physical Exam Physical Exam: General: well developed, thin female, comfortable, no distress Neck: supple, trachea midline, normal thyroid Lungs: clear to auscultation bilaterally, normal respiratory effort, no accessory muscle use, no distress Heart: regular S1 and S2, no murmur, peripheral pulses normal, capillary refill normal, no edema Abdomen: soft, NT, ND, + BS, +ascites Extremities: normal in appearance, no cyanosis, no petechiae, strength is 5/5 bilaterally Neuro: awake, cooperative, moves all extremities, no focal motor deficits, CN II-XII intact Skin: warm, dry, no rash, normal turgor Psych: Awake, alert oriented to person and place and time Results & Data Results & Data ([facility]) Vital Signs (Past 12 Hours) Vital Signs Temp Pulse Pulse Resp BP BP Pulse Ox 09/20/21 11:22 36.5 C 76 18 105/59 L 94 09/20/21 08:00 36.6 C 66 21 85/44 L 92 09/20/21 07:27 69 09/20/21 02:29 36.8 C 67 67 17 98/57 L 98/57 L 93 09/20/21 02:00 70 18 98/54 L 92 09/20/21 01:00 71 19 107/56 L 92 Laboratory Results Laboratory Results - last 24 hr 09/19/21 09/19/21 09/19/21 14:23 14:23 16:27 WBC RBC Hgb Hct MCV MCH MCHC RDW Std Deviation RDW Coeff of Polina Plt Count Immature Gran % (Auto) Neut % (Auto) Lymph % (Auto) [place] % (Auto) Eos % (Auto) Baso % (Auto) Neut # (Auto) Lymph # (Auto) [place] # (Auto) Eos # (Auto) Baso # (Auto) Immature Gran # (Auto) Absolute Nucleated RBC Nucleated RBC % (auto) Platelet Estimate Anisocytosis Tear Drop Cells PT INR APTT 37.1 H PTT Ratio 1.4 Sodium 140 Potassium 3.8 Chloride 111 H Carbon Dioxide 22 Anion Gap 7.0 BUN 39 H Creatinine 1.78 H Est Cr Clr Drug Dosing 26.4 Est GFR ( Amer) 34.3 Est GFR (Non-Af Amer) 29.6 BUN/Creatinine Ratio 21.7 H Glucose 147 H POC Glucose 130 H Calcium 8.0 L Phosphorus Magnesium Total Bilirubin Direct Bilirubin AST ALT Alkaline Phosphatase Ammonia Total Protein Albumin Urine Color Urine Appearance Urine pH Ur Specific [place] Urine Protein Urine Glucose (UA) Urine Ketones Urine Blood Urine Nitrite Urine Bilirubin Urine Urobilinogen Ur Leukocyte Esterase Urine WBC (Auto) Urine RBC (Auto) U Hyaline Cast (Auto) U Epithel Cells (Auto) Urine Bacteria (Auto) Ur Renal Epithelial Cell Urine Yeast Ur Random Creatinine Ur Random Sodium 09/19/21 09/19/21 09/20/21 20:03 21:36 06:22 WBC 5.79 RBC 3.65 L Hgb 9.8 L Hct 31.4 L MCV 86.0 MCH 26.8 MCHC 31.2 L RDW Std Deviation 62.6 H RDW Coeff of Polina 19.7 H Plt Count 101 L Immature Gran % (Auto) 8.6 Neut % (Auto) 64.3 Lymph % (Auto) 13.1 [place] % (Auto) 11.1 Eos % (Auto) 0.7 Baso % (Auto) 2.2 Neut # (Auto) 3.72 Lymph # (Auto) 0.76 L [place] # (Auto) 0.64 H Eos # (Auto) 0.04 Baso # (Auto) 0.13 Immature Gran # (Auto) 0.50 H Absolute Nucleated RBC 0.14 H Nucleated RBC % (auto) 2.4 Platelet Estimate Decreased L Anisocytosis Present Tear Drop Cells 1+ PT INR APTT 46.7 H* PTT Ratio 1.8 Sodium Potassium Chloride Carbon Dioxide Anion Gap BUN Creatinine Est Cr Clr Drug Dosing Est GFR ( Amer) Est GFR (Non-Af Amer) BUN/Creatinine Ratio Glucose POC Glucose 158 H Calcium Phosphorus Magnesium Total Bilirubin Direct Bilirubin AST ALT Alkaline Phosphatase Ammonia Total Protein Albumin Urine Color Urine Appearance Urine pH Ur Specific [place] Urine Protein Urine Glucose (UA) Urine Ketones Urine Blood Urine Nitrite Urine Bilirubin Urine Urobilinogen Ur Leukocyte Esterase Urine WBC (Auto) Urine RBC (Auto) U Hyaline Cast (Auto) U Epithel Cells (Auto) Urine Bacteria (Auto) Ur Renal Epithelial Cell Urine Yeast Ur Random Creatinine Ur Random Sodium 09/20/21 09/20/21 09/20/21 06:22 06:22 06:22 WBC RBC Hgb Hct MCV MCH MCHC RDW Std Deviation RDW Coeff of Polina Plt Count Immature Gran % (Auto) Neut % (Auto) Lymph % (Auto) [place] % (Auto) Eos % (Auto) Baso % (Auto) Neut # (Auto) Lymph # (Auto) [place] # (Auto) Eos # (Auto) Baso # (Auto) Immature Gran # (Auto) Absolute Nucleated RBC Nucleated RBC % (auto) Platelet Estimate Anisocytosis Tear Drop Cells PT 12.2 H INR 1.2 H APTT 41.9 H PTT Ratio 1.6 Sodium 142 Potassium 3.2 L D Chloride 113 H Carbon Dioxide 22 Anion Gap 7.0 BUN 35 H Creatinine 1.42 H D Est Cr Clr Drug Dosing 33.1 Est GFR ( Amer) 45.1 Est GFR (Non-Af Amer) 38.9 BUN/Creatinine Ratio 24.9 H Glucose 99 POC Glucose Calcium 8.2 L Phosphorus 4.4 D Magnesium 2.4 Total Bilirubin 0.7 D Direct Bilirubin 0.3 H D AST 47 H ALT 40 Alkaline Phosphatase 244 H Ammonia 33.0 H Total Protein 5.7 L Albumin 2.9 L Urine Color Urine Appearance Urine pH Ur Specific [place] Urine Protein Urine Glucose (UA) Urine Ketones Urine Blood Urine Nitrite Urine Bilirubin Urine Urobilinogen Ur Leukocyte Esterase Urine WBC (Auto) Urine RBC (Auto) U Hyaline Cast (Auto) U Epithel Cells (Auto) Urine Bacteria (Auto) Ur Renal Epithelial Cell Urine Yeast Ur Random Creatinine Ur Random Sodium 09/20/21 09/20/21 09/20/21 08:03 11:01 Unknown WBC RBC Hgb Hct MCV MCH MCHC RDW Std Deviation RDW Coeff of Polina Plt Count Immature Gran % (Auto) Neut % (Auto) Lymph % (Auto) [place] % (Auto) Eos % (Auto) Baso % (Auto) Neut # (Auto) Lymph # (Auto) [place] # (Auto) Eos # (Auto) Baso # (Auto) Immature Gran # (Auto) Absolute Nucleated RBC Nucleated RBC % (auto) Platelet Estimate Anisocytosis Tear Drop Cells PT INR APTT 96.3 H* PTT Ratio 3.7 Sodium Potassium Chloride Carbon Dioxide Anion Gap BUN Creatinine Est Cr Clr Drug Dosing Est GFR ( Amer) Est GFR (Non-Af Amer) BUN/Creatinine Ratio Glucose POC Glucose 105 H Calcium Phosphorus Magnesium Total Bilirubin Direct Bilirubin AST ALT Alkaline Phosphatase Ammonia Total Protein Albumin Urine Color Urine Appearance Urine pH Ur Specific [place] Urine Protein Urine Glucose (UA) Urine Ketones Urine Blood Urine Nitrite Urine Bilirubin Urine Urobilinogen Ur Leukocyte Esterase Urine WBC (Auto) Urine RBC (Auto) U Hyaline Cast (Auto) U Epithel Cells (Auto) Urine Bacteria (Auto) Ur Renal Epithelial Cell Urine Yeast Ur Random Creatinine 96.8 Ur Random Sodium 29 09/20/21 09/20/21 Unknown Unknown WBC RBC Hgb Hct MCV MCH MCHC RDW Std Deviation RDW Coeff of Polina Plt Count Immature Gran % (Auto) Neut % (Auto) Lymph % (Auto) [place] % (Auto) Eos % (Auto) Baso % (Auto) Neut # (Auto) Lymph # (Auto) [place] # (Auto) Eos # (Auto) Baso # (Auto) Immature Gran # (Auto) Absolute Nucleated RBC Nucleated RBC % (auto) Platelet Estimate Anisocytosis Tear Drop Cells PT INR APTT PTT Ratio Sodium Potassium Chloride Carbon Dioxide Anion Gap BUN Creatinine Est Cr Clr Drug Dosing Est GFR ( Amer) Est GFR (Non-Af Amer) BUN/Creatinine Ratio Glucose POC Glucose Calcium Phosphorus Magnesium Total Bilirubin Direct Bilirubin AST ALT Alkaline Phosphatase Ammonia Total Protein Albumin Urine Color Yellow Urine Appearance Clear Urine pH 5.0 Ur Specific [place] 1.022 Urine Protein Trace H Urine Glucose (UA) Negative Urine Ketones Negative Urine Blood 3+ H Urine Nitrite Negative Urine Bilirubin Negative Urine Urobilinogen Negative Ur Leukocyte Esterase Trace H Urine WBC (Auto) 10-30 H Urine RBC (Auto) >30 H U Hyaline Cast (Auto) 5-10 H U Epithel Cells (Auto) >30 H Urine Bacteria (Auto) Negative Ur Renal Epithelial Cell Not Reportable Urine Yeast Not Reportable Ur Random Creatinine Ur Random Sodium Cancelled Medications Administered Current Inpatient Medications Heparin Sodium/Dextrose (Heparin Sodium/Dextrose) 25,000 units in 500 mls @ 17 mls/hr IV .Q24H PATRICIA; Protocol Stop: 09/20/21 20:29 Last Titration: 09/20/21 12:59 Dose: 850 units/hr, 17 mls/hr Documented by: Lactulose (Lactulose Syrup 20 Gm/30 Ml Udc) 20 gm PO DAILY PATRICIA Stop: 10/19/21 10:29 Last Admin: 09/20/21 08:52 Dose: 20 gm Documented by: Pantoprazole Sodium (Pantoprazole 40 Mg Tab) 40 mg PO BID PATRICIA Stop: 10/19/21 20:59 Last Admin: 09/20/21 08:52 Dose: 40 mg Documented by: Rivaroxaban (Rivaroxaban 10 Mg Tablet) 10 mg PO QPM [facility] Stop: 10/20/21 20:59 PG Care Time/CCT Total # of Minutes Spent Total Time Spent with Patient: Total time spent is greater than 50% in coordination of care (as documented) at patient's floor/unit and/or counseling patient: Coding Level of Care Code 23253 Subseq Hosp Care Lvl 3 Diagnoses Respiratory failure J96.00 Chronicity: acute Respiratory failure complication: unspecified whether with hypoxia or hypercapnia RAFIQ (acute kidney injury) N17.9 Bradycardic cardiac arrest R00.1; I46.2 Hepatic encephalopathy K72.90 Syncope R55 Syncope type: unspecified COVID-19 U07.1 Other pulmonary embolism and infarction I26.99 Cirrhosis K74.60 Esophageal varices I85.00 Portal hypertension K76.6 Splenomegaly R16.1 Gastric varices I86.4 Myelodysplastic disease C94.6 Reflux esophagitis K21.0 Acute anemia D64.9 (1) Respiratory failure Chronicity: acute Respiratory failure complication: unspecified whether with hypoxia or hypercapnia Qualified Code(s): J96.00 - Acute respiratory failure, unspecified whether with hypoxia or hypercapnia (2) Syncope Syncope type: unspecified Qualified Code(s): R55 - Syncope and collapse
--- NOTE | 2021-09-20 12:37 | Nephrology Progress Note ---
Date of Service September 20, 2021 Assessment & Plan (1) RAFIQ (acute kidney injury): Plan: * RAFIQ due to hemodynamic injury related to profound bradycardia, PRITESH related to chest CTA at time of admission and current COVID infection * Cr has improved following stabilization of HR, BP and avoiding nephrotoxic medications. Cr has dropped from 1.78 to 1.42 overnight (baseline Cr ~ 1.0). UO was 1200 cc last shift. Electrolyte balance is acceptable * No acute indication for Midodrine or Octreotide therapy at this time. Continue supportive care * Urinalysis revealed hematuria, pyuria and + proteinuria. Hematuria is likely related to Wright catheter. 09/18 urine cx is negative. 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 Undergoing liver transplant evaluation at [facility] (3) Myelodysplastic disease: Plan: * h/o myeloid metaplasia. Ruxolitinib is currently being held Admission and Anticipated Discharge Date Admission Date: September 18, 2021 Subjective Mrs. Roy was evaluated in her hospital room this morning. She was breathing comfortably on RA at the time of my exam. She denied flank discomfort or any prior h/o kidney disease. Review of Systems Constitutional: no fever Eyes: no problem reported Ear, Nose, Mouth, Throat: no problem reported Respiratory: no cough and no dyspnea Cardiovascular: no chest pain, no palpitations and no edema Gastrointestinal: no abdominal pain (+ abdominal distention) Genitourinary: no dysuria and no hematuria Musculoskeletal: no back pain Integumentary: no rash Neurologic: no confusion Physical Exam Constitutional: not in distress Eyes: PERRL, conjunctivae normal, anicteric sclerae ENMT: external ear and nose normal, oropharynx normal Neck: trachea midline, no thyromegaly Respiratory: normal respiratory effort (+ bibasilar rales) Cardiovascular: RRR, no murmur, no edema Gastrointestinal (Abdomen): Inspection/Auscultation: + abdomen distended Percussion/Palpation: abdomen soft; abdomen nontender and no guarding Skin: no rashes, warm and dry Neurologic: awake; not confused Results & Data ([facility]) Vital Signs (Past 12 Hours) Vital Signs Temp Pulse Pulse Resp BP BP Pulse Ox 09/20/21 11:22 36.5 C 76 18 105/59 L 94 09/20/21 08:00 36.6 C 66 21 85/44 L 92 09/20/21 07:27 69 09/20/21 02:29 36.8 C 67 67 17 98/57 L 98/57 L 93 09/20/21 02:00 70 18 98/54 L 92 09/20/21 01:00 71 19 107/56 L 92 Laboratory Results Laboratory Tests 09/18/21 09/20/21 09/20/21 18:55 06:22 06:22 WBC 5.79 Hgb 9.8 L Hct 31.4 L Plt Count 101 L Sodium 142 Potassium 3.2 L D Chloride 113 H Carbon Dioxide 22 BUN 35 H Creatinine 1.42 H D Glucose 99 Calcium 8.2 L Phosphorus 4.4 D Magnesium 2.4 AST 47 H ALT 40 Ammonia Albumin 2.9 L Urine Color Yellow Urine Appearance Cloudy A Urine pH 8.5 H Ur Specific [place] 1.026 Urine Protein 4+ H Urine Glucose (UA) Trace H Urine Ketones Negative Urine Blood 3+ H Urine Nitrite Negative Urine WBC (Auto) >30 H Urine RBC (Auto) >30 H U Hyaline Cast (Auto) 10-30 H 09/20/21 06:22 WBC Hgb Hct Plt Count Sodium Potassium Chloride Carbon Dioxide BUN Creatinine Glucose Calcium Phosphorus Magnesium AST ALT Ammonia 33.0 H Albumin Urine Color Urine Appearance Urine pH Ur Specific [place] Urine Protein Urine Glucose (UA) Urine Ketones Urine Blood Urine Nitrite Urine WBC (Auto) Urine RBC (Auto) U Hyaline Cast (Auto) PG Care Time/CCT Total # of Minutes Spent Total Time Spent with Patient: Total time spent is greater than 50% in coordination of care (as documented) at patient's floor/unit and/or counseling patient: Coding Level of Care Code 24231 Subseq Hosp Care Lvl 3 Diagnoses RAFIQ (acute kidney injury) N17.9 Cirrhosis K74.60 Myelodysplastic disease C94.6
[2021-09-20 15:22] LABS: Hematocrit (blood only) 35.5 % (37-47); Hemoglobin 10.7 g/dL (12.0-16.0)
[2021-09-20 15:32] LABS: Partial Thromboplastin Ratio 1.2; Partial Thromboplastin Time 32.8 Seconds (21.0-31.0)
[2021-09-20 15:39] LABS: BUN Creatinine Ratio 21.5 (10-20); Calcium 8.1 mg/dl (8.5-10.1); Creatinine Clr Calc Pharmacy 31.3 ml/min; Est GFR (African American) 42.2 ml/min; Est GFR (Non-African American) 36.4 ml/min
[2021-09-20] MEDS ORDERED: HEPARIN SOD (PORCINE) 1000 UNIT/ML IV ONE (15:40)
[2021-09-20] MEDS ORDERED: POTASSIUM CHLORIDE CRTAB 20 MEQ TABCR PO STA (18:10)
[2021-09-20] MEDS: POTASSIUM CHLORIDE / WTR 10 MEQ/100 ML PLCT IV SCH ×2 (18:23→20:24)
[2021-09-20] MEDS ORDERED: RIVAROXABAN 10 MG TABLET PO SCH (21:00)
[2021-09-20 22:57] LABS: Partial Thromboplastin Ratio 1.1; Partial Thromboplastin Time 27.9 Seconds (21.0-31.0)
[2021-09-21 06:36] LABS: 7-Aminoclonaz, Confirm NEGATIVE ng/mL (<25); Hydro-Alp Ur, GC/MS NEGATIVE ng/mL (<25); Hydroxyethylflurazepam, Conf NEGATIVE ng/mL (<50); Hydroxymidazolam Ur, GC/MS >2000 ng/mL (<50); Hydroxytriazolam NEGATIVE ng/mL (<50); Lorazepam, Ur GC/MS NEGATIVE ng/mL (<50); Nordiazepam, Confirm NEGATIVE ng/mL (<50); Oxazepam Ur, GC/MS NEGATIVE ng/mL (<50); Temazepam, Confirm NEGATIVE ng/mL (<50)
[2021-09-21 07:09] LABS: Mean Corpuscular Hgb Conc 29.9 g/dL (32-36); Nucleated RBC # (auto) 0.07 K/uL (0-0); Nucleated RBC % (auto) 1.5 %
[2021-09-21 07:23] LABS: Hematocrit (blood only) 30.4 % (37-47); Hemoglobin 9.1 g/dL (12.0-16.0); Mean Corpuscular Hemoglobin 26.4 pg (25-34); Mean Corpuscular Volume 88.1 fL (80-100); RDW Coefficient of Variation 19.8 % (11.5-14.5); RDW Standard Deviation 64.2 fL (36.4-46.3); Red Blood Count 3.45 M/uL (4.2-5.4)
[2021-09-21 07:25] LABS: INR 1.1 (0.9-1.1); Partial Thromboplastin Time 27.6 Seconds (21.0-31.0); Prothrombin Time 11.5 Seconds (9.0-12.0)
[2021-09-21 07:30] LABS: Platelet Count 79 K/uL (130-400)
[2021-09-21 07:31] LABS: Anisocytosis Present; Basophils # (auto) 0.12 K/uL (0-0.2); Basophils % (auto) 2.6 %; Eosinophils # (auto) 0.09 K/uL (0-0.5); Eosinophils % (auto) 1.9 %; Immature Granulocytes # (auto) 0.21 K/uL (0.00-0.02); Immature Granulocytes % (auto) 4.5 %; Lymphocytes # (auto) 0.73 K/uL (1.2-3.4); Lymphocytes % (auto) 15.5 %; Monocytes # (auto) 0.38 K/uL (0.11-0.59); Monocytes % (auto) 8.1 %; Neutrophils # (auto) 3.17 K/uL (1.4-6.5); Neutrophils % (auto) 67.4 %; Ovalocytes 1+; Platelet Estimate Decreased (Normal); Tear Drop Cells 2+
[2021-09-21 07:51] LABS: Albumin Level 2.9 gm/dl (3.4-5.0); BUN Creatinine Ratio 23.4 (10-20); Bilirubin Direct 0.3 mg/dl (0-0.2); Bilirubin,Total 0.9 mg/dl (0.2-1); Calcium 8.5 mg/dl (8.5-10.1); Creatinine Clr Calc Pharmacy 42.7 ml/min; Est GFR (African American) 61.4 ml/min; Magnesium 2.2 mg/dl (1.8-2.4); Potassium 4.2 mmol/L (3.5-5.1); Total Protein 5.7 gm/dl (6.4-8.2)
[2021-09-21] MEDS: LACTULOSE SYRUP 20 GM/30 ML UDC PO SCH ×2 (08:53→21:37)
[2021-09-21] MEDS: PANTOprazole 40 MG TAB PO SCH (08:53)
--- NOTE | 2021-09-21 09:34 | Nephrology Progress Note ---
Date of Service September 21, 2021 Assessment & Plan (1) RAFIQ (acute kidney injury): Plan: * RAFIQ due to hemodynamic injury related to profound bradycardia, PRITESH related to chest CTA at time of admission and current COVID infection * Kidney function has recovered (baseline Cr ~ 1.0). UO was 1200 cc last shift. Electrolyte balance is acceptable * Urinalysis revealed hematuria, pyuria and + proteinuria. Hematuria is likely related to Wright catheter. 09/18 urine cx is negative. 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 Undergoing liver transplant evaluation at [facility] (3) Myelodysplastic disease: Plan: * h/o myeloid metaplasia. Ruxolitinib is currently being held Admission and Anticipated Discharge Date Admission Date: September 18, 2021 Subjective No new medical concerns voiced. 1200 cc UO last shift Review of Systems Constitutional: no fever Eyes: no problem reported Ear, Nose, Mouth, Throat: no problem reported Respiratory: no cough and no dyspnea Cardiovascular: no chest pain, no palpitations and no edema Gastrointestinal: no abdominal pain (+ abdominal distention) Genitourinary: no dysuria and no hematuria Musculoskeletal: no back pain Integumentary: no rash Neurologic: no confusion Physical Exam Constitutional: not in distress Eyes: PERRL, conjunctivae normal, anicteric sclerae ENMT: external ear and nose normal, oropharynx normal Neck: trachea midline, no thyromegaly Respiratory: normal respiratory effort (+ bibasilar rales) Cardiovascular: RRR, no murmur, no edema Gastrointestinal (Abdomen): Inspection/Auscultation: + abdomen distended Percussion/Palpation: abdomen soft; abdomen nontender and no guarding Skin: no rashes, warm and dry Neurologic: awake; not confused Results & Data ([facility]) Vital Signs (Past 12 Hours) Vital Signs Temp Pulse Pulse Resp BP BP Pulse Ox 09/21/21 08:00 83 09/21/21 07:16 36.8 C 74 17 107/66 94 09/21/21 03:15 36.9 C 76 18 108/60 92 09/20/21 23:00 77 09/20/21 22:38 37.1 C 77 19 104/55 L 96 Laboratory Results Laboratory Tests 09/21/21 09/21/21 05:54 05:54 WBC 4.70 L Hgb 9.1 L Hct 30.4 L Plt Count 79 L Sodium 141 Potassium 4.2 D Chloride 115 H Carbon Dioxide 22 BUN 26 H Creatinine 1.10 D Magnesium 2.2 Total Bilirubin 0.9 Direct Bilirubin 0.3 H AST 34 ALT 33 Alkaline Phosphatase 232 H Albumin 2.9 L PG Care Time/CCT Total # of Minutes Spent Total Time Spent with Patient: Total time spent is greater than 50% in coordination of care (as documented) at patient's floor/unit and/or counseling patient: Coding Level of Care Code 48403 Subseq Hosp Care Lvl 3 Diagnoses RAFIQ (acute kidney injury) N17.9 Cirrhosis K74.60 Myelodysplastic disease C94.6
[2021-09-21 09:36] LABS: Appearance Urine Clear (Clear); Bilirubin Urine Negative (Negative); Blood Urine Negative (Negative); Color Urine Yellow; Glucose Urine UA Negative (Negative); Ketones Urine Negative (Negative); Leukocyte Esterase Urine Negative (Negative); Nitrite Urine Negative (Negative); Protein Urine Negative (Negative); Specific Gravity Urine 1.019 (1.000-1.030); Urobilinogen Urine Negative (Negative)
--- NOTE | 2021-09-21 10:37 | Hospitalist Progress Note ---
Date of Service September 21, 2021 Assessment & Plan (1) Upper GI bleed: Plan: suspect this with her dark stools and Hb drifting down to 9.1 however, her BUN is going down which would not make sense with upper GI bleed BP and HR are stable, no light headedness she has had a few dark stools, no hematemesis, no epigastric pain hold heparin drip, use SCD while in bed Protonix IV and add Octreotide drip due to h/o varices no emergent need for scope but may need one on Thursday, I contacted GI industrial relations specialist to make them aware follow Hb (2) Acute anemia: Plan: Hb down to 9.1 no need for transfusion unless < 7.0 or hypotensive (3) RAFIQ (acute kidney injury): Plan: Cr peaked at 1.7, down to 1.1 today after fluid challenge on 09/19 BP low normal, no indication for midodrine and albumin ATN, PRITESH vs possible HRS (doubtful since Cr improved) electrolytes stable BMP in morning eating and drinking well today (4) Respiratory failure: Plan: Respiratory failure/COVID-19 pneumonia/possible aspiration- stop Zosyn and Azithromycin, no concerns for bacterial pneumonia, breathing well room air and WBC normal stop Dexamethasone as she is 95% on room air, no distress, lungs clear on x-ray (5) Bradycardic cardiac arrest: Plan: echo shows preserved EF, normal wall motion elevated RV pressures at 60mmHg (6) Hepatic encephalopathy: Plan: ammonia 44 on admission, per records, her pump room operator was concerned with her having "brain fog" recently Lactulose 20mg BID add Rifaximin BID per GI recommendations ammonia down to 33 09/20, repeat tomorrow (7) Syncope: Plan: Syncope- Bradycardia cardiac arrest, acute respiratory failure unclear what happened, no issues here on monitor respiratory status is stable HR and BP stable continue to monitor on tele will need PT/OT (8) COVID-19: Plan: See above no true symptoms, not hypoxic, stop Dexamethasone (9) Other pulmonary embolism and infarction: Plan: Placed on heparin IV low-dose without bolus h/o such now stopped due to Hb dropping and dark stools SCD while in bed (10) Cirrhosis: Plan: Cirrhosis/esophageal varices/portal hypertension/splenomegaly/gastric varices/ascites- d/w radiology, only has about 1L of fluid in abdomen, hold on paracentesis for now ammonia is 33 abdomen is getting more distended, should re-evaluate for paracentesis on Thursday with albumin (11) Esophageal varices: Plan: See above (12) Portal hypertension: Plan: See above (13) Splenomegaly: Plan: See above (14) Gastric varices: Plan: See above (15) Myelodysplastic disease: Plan: Follows in outpatient setting with hematology oncology Dr. Vergara appreciate his consult WBC is now low, < 4k and plts are in 70's (16) Reflux esophagitis: Plan: Protonix IV Admission and Anticipated Discharge Date Admission Date: September 18, 2021 Subjective patient doing fine, ambulating in the room, breathing well, no chest pain, no fever, no light headedness however, she admits to dark stools, started yesterday evening, a few of them no vomiting and specifically no hematemesis, has a known history of varices reviewed labs, Hb is 9.1, WBC is < 4k, platelets in 70s, has been off heparin since last evening Cr is improved to 1.1, K 4.2, making a lot of urine INR is 1.1, bili 0.3, AST/ALT normal her abdomen feels more distended but she has a great appetite discussed with her the likely need for EGD on Thursday and will re-evaluate for paracentesis she agrees with plan moved to 263 today Review of Systems Review of Systems: All systems reviewed & are unremarkable except as noted in Subjective Physical Exam Physical Exam: General: well developed, thin female, comfortable, no distress Neck: supple, trachea midline, normal thyroid Lungs: clear to auscultation bilaterally, normal respiratory effort, no accessory muscle use, no distress Heart: regular S1 and S2, no murmur, peripheral pulses normal, capillary refill normal, no edema Abdomen: soft, NT, distended due to fluid, + BS, +ascites Extremities: normal in appearance, no cyanosis, no petechiae, strength is 5/5 bilaterally Neuro: awake, cooperative, moves all extremities, no focal motor deficits, CN II-XII intact Skin: warm, dry, no rash, normal turgor Psych: Awake, alert oriented to person and place and time Results & Data Results & Data ([facility]) Vital Signs (Past 12 Hours) Vital Signs Temp Pulse Pulse Resp BP BP Pulse Ox 09/21/21 08:00 83 09/21/21 07:16 36.8 C 74 17 107/66 94 09/21/21 03:15 36.9 C 76 18 108/60 92 09/20/21 23:00 77 09/20/21 22:38 37.1 C 77 19 104/55 L 96 Laboratory Results Laboratory Results - last 24 hr 09/18/21 09/20/21 09/20/21 18:55 11:01 15:08 WBC RBC Hgb 10.7 L Hct 35.5 L MCV MCH MCHC RDW Std Deviation RDW Coeff of Polina Plt Count Immature Gran % (Auto) Neut % (Auto) Lymph % (Auto) [place] % (Auto) Eos % (Auto) Baso % (Auto) Neut # (Auto) Lymph # (Auto) [place] # (Auto) Eos # (Auto) Baso # (Auto) Immature Gran # (Auto) Absolute Nucleated RBC Nucleated RBC % (auto) Platelet Estimate Anisocytosis Tear Drop Cells Ovalocytes PT INR APTT 96.3 H* PTT Ratio 3.7 Sodium Potassium Chloride Carbon Dioxide Anion Gap BUN Creatinine Est Cr Clr Drug Dosing Est GFR ( Amer) Est GFR (Non-Af Amer) BUN/Creatinine Ratio Glucose Calcium Phosphorus Magnesium Total Bilirubin Direct Bilirubin AST ALT Alkaline Phosphatase Total Protein Albumin Urine Color Urine Appearance Urine pH Ur Specific [place] Urine Protein Urine Glucose (UA) Urine Ketones Urine Blood Urine Nitrite Urine Bilirubin Urine Urobilinogen Ur Leukocyte Esterase Stool Occult Bld Scrn U OH-Alprazolam Confrm NEGATIVE 7-Amino Clonazepam NEGATIVE Ur Nordiazepam Confirm NEGATIVE U OH-ethylflurazepam NEGATIVE U Lorazepam Cnf GC/MS NEGATIVE U Oxazepam Confm GC/MS NEGATIVE Ur Temazepam Confirm NEGATIVE U OH-Triazolam Confirm NEGATIVE U OH-Midazolam Confirm >2000 H Drug Screen Comment SEE NOTE 09/20/21 09/20/21 09/20/21 15:08 15:08 22:00 WBC RBC Hgb Hct MCV MCH MCHC RDW Std Deviation RDW Coeff of Polina Plt Count Immature Gran % (Auto) Neut % (Auto) Lymph % (Auto) [place] % (Auto) Eos % (Auto) Baso % (Auto) Neut # (Auto) Lymph # (Auto) [place] # (Auto) Eos # (Auto) Baso # (Auto) Immature Gran # (Auto) Absolute Nucleated RBC Nucleated RBC % (auto) Platelet Estimate Anisocytosis Tear Drop Cells Ovalocytes PT INR APTT 32.8 H 27.9 PTT Ratio 1.2 1.1 Sodium 144 Potassium 3.0 L Chloride 113 H Carbon Dioxide 24 Anion Gap 7.0 BUN 32 H Creatinine 1.50 H Est Cr Clr Drug Dosing 31.3 Est GFR ( Amer) 42.2 Est GFR (Non-Af Amer) 36.4 BUN/Creatinine Ratio 21.5 H Glucose 88 Calcium 8.1 L Phosphorus Magnesium Total Bilirubin Direct Bilirubin AST ALT Alkaline Phosphatase Total Protein Albumin Urine Color Urine Appearance Urine pH Ur Specific [place] Urine Protein Urine Glucose (UA) Urine Ketones Urine Blood Urine Nitrite Urine Bilirubin Urine Urobilinogen Ur Leukocyte Esterase Stool Occult Bld Scrn U OH-Alprazolam Confrm 7-Amino Clonazepam Ur Nordiazepam Confirm U OH-ethylflurazepam U Lorazepam Cnf GC/MS U Oxazepam Confm GC/MS Ur Temazepam Confirm U OH-Triazolam Confirm U OH-Midazolam Confirm Drug Screen Comment 09/20/21 09/21/21 09/21/21 Unknown 05:54 05:54 WBC 4.70 L RBC 3.45 L Hgb 9.1 L Hct 30.4 L MCV 88.1 MCH 26.4 MCHC 29.9 L RDW Std Deviation 64.2 H RDW Coeff of Polina 19.8 H Plt Count 79 L Immature Gran % (Auto) 4.5 Neut % (Auto) 67.4 Lymph % (Auto) 15.5 [place] % (Auto) 8.1 Eos % (Auto) 1.9 Baso % (Auto) 2.6 Neut # (Auto) 3.17 Lymph # (Auto) 0.73 L [place] # (Auto) 0.38 Eos # (Auto) 0.09 Baso # (Auto) 0.12 Immature Gran # (Auto) 0.21 H Absolute Nucleated RBC 0.07 H Nucleated RBC % (auto) 1.5 Platelet Estimate Decreased L Anisocytosis Present Tear Drop Cells 2+ Ovalocytes 1+ PT 11.5 INR 1.1 APTT 27.6 PTT Ratio 1.0 Sodium Potassium Chloride Carbon Dioxide Anion Gap BUN Creatinine Est Cr Clr Drug Dosing Est GFR ( Amer) Est GFR (Non-Af Amer) BUN/Creatinine Ratio Glucose Calcium Phosphorus Magnesium Total Bilirubin Direct Bilirubin AST ALT Alkaline Phosphatase Total Protein Albumin Urine Color Urine Appearance Urine pH Ur Specific [place] Urine Protein Urine Glucose (UA) Urine Ketones Urine Blood Urine Nitrite Urine Bilirubin Urine Urobilinogen Ur Leukocyte Esterase Stool Occult Bld Scrn Positive A U OH-Alprazolam Confrm 7-Amino Clonazepam Ur Nordiazepam Confirm U OH-ethylflurazepam U Lorazepam Cnf GC/MS U Oxazepam Confm GC/MS Ur Temazepam Confirm U OH-Triazolam Confirm U OH-Midazolam Confirm Drug Screen Comment 09/21/21 09/21/21 05:54 Unknown WBC RBC Hgb Hct MCV MCH MCHC RDW Std Deviation RDW Coeff of Polina Plt Count Immature Gran % (Auto) Neut % (Auto) Lymph % (Auto) [place] % (Auto) Eos % (Auto) Baso % (Auto) Neut # (Auto) Lymph # (Auto) [place] # (Auto) Eos # (Auto) Baso # (Auto) Immature Gran # (Auto) Absolute Nucleated RBC Nucleated RBC % (auto) Platelet Estimate Anisocytosis Tear Drop Cells Ovalocytes PT INR APTT PTT Ratio Sodium 141 Potassium 4.2 D Chloride 115 H Carbon Dioxide 22 Anion Gap 4.0 BUN 26 H Creatinine 1.10 D Est Cr Clr Drug Dosing 42.7 Est GFR ( Amer) 61.4 Est GFR (Non-Af Amer) 53.0 BUN/Creatinine Ratio 23.4 H Glucose 92 Calcium 8.5 Phosphorus Pending Magnesium 2.2 Total Bilirubin 0.9 Direct Bilirubin 0.3 H AST 34 ALT 33 Alkaline Phosphatase 232 H Total Protein 5.7 L Albumin 2.9 L Urine Color Yellow Urine Appearance Clear Urine pH 5.0 Ur Specific [place] 1.019 Urine Protein Negative Urine Glucose (UA) Negative Urine Ketones Negative Urine Blood Negative Urine Nitrite Negative Urine Bilirubin Negative Urine Urobilinogen Negative Ur Leukocyte Esterase Negative Stool Occult Bld Scrn U OH-Alprazolam Confrm 7-Amino Clonazepam Ur Nordiazepam Confirm U OH-ethylflurazepam U Lorazepam Cnf GC/MS U Oxazepam Confm GC/MS Ur Temazepam Confirm U OH-Triazolam Confirm U OH-Midazolam Confirm Drug Screen Comment Medications Administered Current Inpatient Medications Octreotide Acetate 50 mcg/ (Syringe) 10 mls @ 3 mls/min IV ONE STA Stop: 09/21/21 10:38 Octreotide Acetate 500 mcg/ (Sodium Chloride) 105 mls @ 10.5 mls/hr IV .Q10H [facility] [place] Stop: 10/21/21 10:44 Lactulose (Lactulose Syrup 20 Gm/30 Ml Udc) 20 gm PO BID PATRICIA Stop: 10/21/21 20:59 Pantoprazole Sodium (Pantoprazole 40 Mg Tab) 40 mg PO BID PATRICIA Stop: 10/19/21 20:59 Last Admin: 09/21/21 08:53 Dose: 40 mg Documented by: Rifaximin (Rifaximin 550 Mg Tablet) 550 mg PO BID [facility] Stop: 10/21/21 10:29 PG Care Time/CCT Total # of Minutes Spent Total Time Spent with Patient: Total time spent is greater than 50% in coordination of care (as documented) at patient's floor/unit and/or counseling patient: Coding Level of Care Code 10459 Subseq Hosp Care Lvl 3 Diagnoses Respiratory failure J96.00 Chronicity: acute Respiratory failure complication: unspecified whether with hypoxia or hypercapnia RAFIQ (acute kidney injury) N17.9 Acute anemia D64.9 Bradycardic cardiac arrest R00.1; I46.2 Hepatic encephalopathy K72.90 Syncope R55 Syncope type: unspecified COVID-19 U07.1 Other pulmonary embolism and infarction I26.99 Cirrhosis K74.60 Esophageal varices I85.00 Portal hypertension K76.6 Splenomegaly R16.1 Gastric varices I86.4 Myelodysplastic disease C94.6 Reflux esophagitis K21.0 Upper GI bleed K92.2 (1) Respiratory failure Chronicity: acute Respiratory failure complication: unspecified whether with hypoxia or hypercapnia Qualified Code(s): J96.00 - Acute respiratory failure, unspecified whether with hypoxia or hypercapnia (2) Syncope Syncope type: unspecified Qualified Code(s): R55 - Syncope and collapse
[2021-09-21] MEDS: rifAXIMin 550 MG TABLET PO SCH ×2 (10:54→21:40)
[2021-09-21] MEDS ORDERED: OCTREOTIDE ACETATE 50 MCG in SYRINGE 9.5 ML IV STA (10:59)
[2021-09-21 11:18] LABS: Phosphorus 2.9 mg/dl (2.5-4.9)
[2021-09-21] MEDS: OCTREOTIDE ACETATE 500 MCG in 0.9 % SODIUM CHLORIDE 100 ML IV SCH ×2 (12:09→21:53)
--- NOTE | 2021-09-21 20:18 | Electrocardiogram Report ---
Test Reason : Blood Pressure : / mmHG Vent. Rate : 064 BPM Atrial Rate : 064 BPM P-R Int : 156 ms QRS Dur : 082 ms QT Int : 412 ms P-R-T Axes : 062 052 -48 degrees QTc Int : 425 ms Normal sinus rhythm Low voltage QRS T wave abnormality, consider inferolateral ischemia Abnormal ECG When compared with ECG of 19-SEP-2021 05:53, T wave inversion now evident in Inferior leads T wave inversion now evident in Anterolateral leads Confirmed by Alvin Heck ([id number]) on 09/21/2021 8:18:04 PM Referred By: REFERRED SELF Confirmed By:Alvin Heck
[2021-09-21] MEDS: PANTOprazole 40 MG in SYRINGE 0 ML IV SCH (22:00)
[2021-09-22 05:55] LABS: Mean Corpuscular Hgb Conc 30.1 g/dL (32-36); Nucleated RBC % (auto) 2.4 %
[2021-09-22 06:04] LABS: Hematocrit (blood only) 30.2 % (37-47); Hemoglobin 9.1 g/dL (12.0-16.0); Mean Corpuscular Hemoglobin 26.5 pg (25-34); Mean Corpuscular Volume 87.8 fL (80-100); RDW Coefficient of Variation 19.6 % (11.5-14.5); RDW Standard Deviation 62.7 fL (36.4-46.3); Red Blood Count 3.44 M/uL (4.2-5.4); White Blood Count 4.26 K/uL (4.8-10.8)
[2021-09-22 06:07] LABS: INR 1.2 (0.9-1.1); Prothrombin Time 11.9 Seconds (9.0-12.0)
[2021-09-22 06:24] LABS: Platelet Count 77 K/uL (130-400)
[2021-09-22 06:26] LABS: Platelet Estimate Decreased (Normal)
[2021-09-22 06:27] LABS: Albumin Level 2.9 gm/dl (3.4-5.0); BUN Creatinine Ratio 17.1 (10-20); Calcium 8.5 mg/dl (8.5-10.1); Creatinine Clr Calc Pharmacy 38.9 ml/min; Est GFR (African American) 54.8 ml/min; Est GFR (Non-African American) 47.2 ml/min; Potassium 4.3 mmol/L (3.5-5.1)
[2021-09-22 06:30] LABS: Bilirubin,Total 1.1 mg/dl (0.2-1); Globulin 2.9 gm/dl (2.5-4.0); Total Protein 5.8 gm/dl (6.4-8.2)
[2021-09-22 06:56] LABS: Creatinine Urine Random 66.1 mg/dl; Protein Creatinine Ratio Urine 0.2 (0-0.2); Total Protein Urine Random 11.8 mg/dl (0-11.9)
[2021-09-22] MEDS: LACTULOSE SYRUP 20 GM/30 ML UDC PO SCH ×2 (09:01→20:07)
[2021-09-22] MEDS: rifAXIMin 550 MG TABLET PO SCH ×2 (09:02→20:08)
[2021-09-22] MEDS: OCTREOTIDE ACETATE 500 MCG in 0.9 % SODIUM CHLORIDE 100 ML IV SCH ×2 (10:06→20:06)
[2021-09-22] MEDS: PANTOprazole 40 MG in SYRINGE 0 ML IV SCH ×2 (10:06→20:07)
--- NOTE | 2021-09-22 10:24 | Nephrology Progress Note ---
Date of Service September 22, 2021 Assessment & Plan (1) RAFIQ (acute kidney injury): Plan: * RAFIQ due to hemodynamic injury related to profound bradycardia, PRITESH related to chest CTA at time of admission and current COVID infection * Kidney function has recovered (baseline Cr ~ 1.0). UO was 1200 cc last shift. Electrolyte balance is acceptable * Urinalysis 09/21/21 was negative for blood, protein. Microscopy was negative for casts * No further Nephrology evaluation indicated at this time. Will sign off. 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 Undergoing liver transplant evaluation at [facility] (3) Myelodysplastic disease: Plan: * h/o myeloid metaplasia. Ruxolitinib is currently being held Admission and Anticipated Discharge Date Admission Date: September 18, 2021 Subjective No new medical concerns voiced. Remains nonoliguric Review of Systems Constitutional: no fever Eyes: no problem reported Ear, Nose, Mouth, Throat: no problem reported Respiratory: no cough and no dyspnea Cardiovascular: no chest pain, no palpitations and no edema Gastrointestinal: no abdominal pain (+ abdominal distention) Genitourinary: no dysuria and no hematuria Musculoskeletal: no back pain Integumentary: no rash Neurologic: no confusion Physical Exam Constitutional: not in distress Eyes: PERRL, conjunctivae normal, anicteric sclerae ENMT: external ear and nose normal, oropharynx normal Neck: trachea midline, no thyromegaly Respiratory: normal respiratory effort (+ bibasilar rales) Cardiovascular: RRR, no murmur, no edema Gastrointestinal (Abdomen): Inspection/Auscultation: + abdomen distended Percussion/Palpation: abdomen soft; abdomen nontender and no guarding Skin: no rashes, warm and dry Neurologic: awake; not confused Results & Data ([facility]) Vital Signs (Past 12 Hours) Vital Signs Temp Pulse Resp BP BP Pulse Ox 09/22/21 07:01 36.5 C 76 17 109/67 93 09/22/21 03:00 37.2 C 81 17 103/61 91 09/21/21 23:27 36.7 C 69 20 100/53 L 93 Laboratory Results Laboratory Tests 09/21/21 09/22/21 09/22/21 Unknown 05:44 05:44 WBC 4.26 L Hgb 9.1 L Hct 30.2 L Plt Count 77 L Sodium 140 Potassium 4.3 Chloride 112 H Carbon Dioxide 24 BUN 21 H Creatinine 1.21 H Calcium 8.5 Total Bilirubin 1.1 H AST 31 ALT 31 Alkaline Phosphatase 221 H Albumin 2.9 L Urine Color Yellow Urine Appearance Clear Urine pH 5.0 Ur Specific [place] 1.019 Urine Protein Negative Urine Glucose (UA) Negative Urine Ketones Negative Urine Blood Negative Urine Nitrite Negative Urine Bilirubin Negative Urine Urobilinogen Negative Ur Leukocyte Esterase Negative Protein/Creatinin Ratio 09/22/21 06:08 WBC Hgb Hct Plt Count Sodium Potassium Chloride Carbon Dioxide BUN Creatinine Calcium Total Bilirubin AST ALT Alkaline Phosphatase Albumin Urine Color Urine Appearance Urine pH Ur Specific [place] Urine Protein Urine Glucose (UA) Urine Ketones Urine Blood Urine Nitrite Urine Bilirubin Urine Urobilinogen Ur Leukocyte Esterase Protein/Creatinin Ratio 0.2 PG Care Time/CCT Total # of Minutes Spent Total Time Spent with Patient: Total time spent is greater than 50% in coordination of care (as documented) at patient's floor/unit and/or counseling patient: Coding Level of Care Code 35913 Subseq Hosp Care Lvl 2 Diagnoses RAFIQ (acute kidney injury) N17.9 Cirrhosis K74.60 Myelodysplastic disease C94.6
--- NOTE | 2021-09-22 14:36 | Hospitalist Progress Note ---
Date of Service September 22, 2021 Assessment & Plan (1) Upper GI bleed: Plan: suspect this with her dark stools and Hb drifting down to 9.1 heme + on testing however, her BUN is going down which would not make sense with upper GI bleed BP and HR are stable, no light headedness she has had a few dark stools, no hematemesis, no epigastric pain hold heparin drip, use SCD while in bed Protonix IV and add Octreotide drip due to h/o varices no emergent need for scope but may need one on Thursday, I contacted GI electrical controls engineer to make them aware Hb is 9.1 again today, BP stable and she reports dark stools resolved will make NPO after midnight, defer to GI on need for EGD with h/o varices if no scope then I think it would be reasonable to discharge home would resume Xarelto (2) Acute anemia: Plan: Hb down to 9.1 but stable now for 24 hours no need for transfusion unless < 7.0 or hypotensive (3) RAFIQ (acute kidney injury): Plan: Cr peaked at 1.7, down to 1.1 yesterday, 1.2 today making more than enough urine BP low normal, no indication for midodrine and albumin ATN, PRITESH vs possible HRS (doubtful since Cr improved) electrolytes stable BMP in morning nephrology signed off (4) Respiratory failure: Plan: Respiratory failure/COVID-19 pneumonia/possible aspiration- stop Zosyn and Azithromycin, no concerns for bacterial pneumonia, breathing well room air and WBC normal stop Dexamethasone as she is 95% on room air, no distress, lungs clear on x-ray (5) Bradycardic cardiac arrest: Plan: echo shows preserved EF, normal wall motion elevated RV pressures at 60mmHg (6) Hepatic encephalopathy: Plan: ammonia 44 on admission, per records, her mixer tender was concerned with her having "brain fog" recently Lactulose 20mg BID add Rifaximin BID per GI recommendations ammonia down to 22 today and mental status is clear moving bowels 4-5x a day, green, orange colored will decrease lactulose to daily, continue Rifaximin (7) Syncope: Plan: Syncope- Bradycardia cardiac arrest, acute respiratory failure unclear what happened, no issues here on monitor respiratory status is stable HR and BP stable continue to monitor on tele will need PT/OT (8) COVID-19: Plan: See above no true symptoms, not hypoxic, stop Dexamethasone (9) Other pulmonary embolism and infarction: Plan: Placed on heparin IV low-dose without bolus h/o such now stopped due to Hb dropping and dark stools SCD while in bed, ambulating in room resume Xarelto once GI determines if she needs scope (10) Cirrhosis: Plan: Cirrhosis/esophageal varices/portal hypertension/splenomegaly/gastric varices/ascites- d/w radiology, only has about 1L of fluid in abdomen, hold on paracentesis for now, won't do it until off precautions ammonia is 22 abdomen is getting more distended platelets in 70s, INR 1.2, Cr is 1.2 on transplant list in [facility] (11) Esophageal varices: Plan: See above (12) Portal hypertension: Plan: See above (13) Splenomegaly: Plan: See above (14) Gastric varices: Plan: See above (15) Myelodysplastic disease: Plan: Follows in outpatient setting with hematology oncology Dr. Vergara appreciate his consult WBC is now low, < 4k and plts are in 70's (16) Reflux esophagitis: Plan: Protonix IV Admission and Anticipated Discharge Date Admission Date: September 18, 2021 Subjective appreciate note from Dr. Blake, he will sign off as Cr is 1.2 and making 1200mL urine, UA was benign reviewed other labs, WBC 4k, Hb is stable at 9.1, plts 70k, INR 1.2 patient is doing great, ambulating in the room, thinking clearly no further dark stools, she says her stools are orange, green but not black no dyspnea, no chest pain discussed getting possible EGD tomorrow but will defer to GI discussed getting US paracentesis, I ordered one but radiology called, said they won't do it until off isolation if no EGD tomorrow then patient may be able to go home Review of Systems Review of Systems: All systems reviewed & are unremarkable except as noted in Subjective Constitutional: + fatigue and + weakness Gastrointestinal: + diarrhea/loose stools (4-5x a day) Physical Exam Physical Exam: General: well developed, thin female, comfortable, no distress Neck: supple, trachea midline, normal thyroid Lungs: clear to auscultation bilaterally, normal respiratory effort, no accessory muscle use, no distress Heart: regular S1 and S2, no murmur, peripheral pulses normal, capillary refill normal, no edema Abdomen: soft, NT, distended due to fluid, + BS, +ascites Extremities: normal in appearance, no cyanosis, no petechiae, strength is 5/5 bilaterally Neuro: awake, cooperative, moves all extremities, no focal motor deficits, CN II-XII intact Skin: warm, dry, no rash, normal turgor Psych: Awake, alert oriented to person and place and time Results & Data Results & Data ([facility]) Vital Signs (Past 12 Hours) Vital Signs Temp Pulse Resp BP Pulse Ox 09/22/21 12:22 36.7 C 78 22 108/60 94 09/22/21 07:01 36.5 C 76 17 109/67 93 09/22/21 03:00 37.2 C 81 17 103/61 91 Laboratory Results Laboratory Results - last 24 hr 09/22/21 09/22/21 09/22/21 05:44 05:44 05:44 WBC 4.26 L RBC 3.44 L Hgb 9.1 L Hct 30.2 L MCV 87.8 MCH 26.5 MCHC 30.1 L RDW Std Deviation 62.7 H RDW Coeff of Polina 19.6 H Plt Count 77 L Absolute Nucleated RBC 0.10 H Nucleated RBC % (auto) 2.4 Platelet Estimate Decreased L PT 11.9 INR 1.2 H Sodium 140 Potassium 4.3 Chloride 112 H Carbon Dioxide 24 Anion Gap 4.0 BUN 21 H Creatinine 1.21 H Est Cr Clr Drug Dosing 38.9 Est GFR ( Amer) 54.8 Est GFR (Non-Af Amer) 47.2 BUN/Creatinine Ratio 17.1 Glucose 112 H Calcium 8.5 Total Bilirubin 1.1 H AST 31 ALT 31 Alkaline Phosphatase 221 H Ammonia Total Protein 5.8 L Albumin 2.9 L Globulin 2.9 Albumin/Globulin Ratio 1.0 Ur Random Creatinine U Random Total Protein Protein/Creatinin Ratio 09/22/21 09/22/21 05:44 06:08 WBC RBC Hgb Hct MCV MCH MCHC RDW Std Deviation RDW Coeff of Polina Plt Count Absolute Nucleated RBC Nucleated RBC % (auto) Platelet Estimate PT INR Sodium Potassium Chloride Carbon Dioxide Anion Gap BUN Creatinine Est Cr Clr Drug Dosing Est GFR ( Amer) Est GFR (Non-Af Amer) BUN/Creatinine Ratio Glucose Calcium Total Bilirubin AST ALT Alkaline Phosphatase Ammonia 26.0 Total Protein Albumin Globulin Albumin/Globulin Ratio Ur Random Creatinine 66.1 U Random Total Protein 11.8 Protein/Creatinin Ratio 0.2 Medications Administered Current Inpatient Medications Octreotide Acetate 500 mcg/ (Sodium Chloride) 105 mls @ 10.5 mls/hr IV .Q10H [facility] Stop: 10/21/21 10:59 Last Admin: 09/22/21 10:06 Dose: 50 mcg/hr, 10.5 mls/hr Documented by: Pantoprazole Sodium 40 mg/ (Syringe) 10 mls @ 5 mls/min IV BID [facility] Stop: 10/21/21 20:59 Last Admin: 09/22/21 10:06 Dose: 5 mls/min Documented by: Lactulose (Lactulose Syrup 20 Gm/30 Ml Udc) 20 gm PO BID [facility] Stop: 10/21/21 20:59 Last Admin: 09/22/21 09:01 Dose: 20 gm Documented by: Rifaximin (Rifaximin 550 Mg Tablet) 550 mg PO BID [facility] Stop: 10/21/21 10:29 Last Admin: 09/22/21 09:02 Dose: 550 mg Documented by: PG Care Time/CCT Total # of Minutes Spent Total Time Spent with Patient: Total time spent is greater than 50% in coordination of care (as documented) at patient's floor/unit and/or counseling patient: Coding Level of Care Code 73307 Subseq Hosp Care Lvl 3 Diagnoses Upper GI bleed K92.2 Acute anemia D64.9 RAFIQ (acute kidney injury) N17.9 Respiratory failure J96.00 Chronicity: acute Respiratory failure complication: unspecified whether with hypoxia or hypercapnia Bradycardic cardiac arrest R00.1; I46.2 Hepatic encephalopathy K72.90 Syncope R55 Syncope type: unspecified COVID-19 U07.1 Other pulmonary embolism and infarction I26.99 Cirrhosis K74.60 Esophageal varices I85.00 Portal hypertension K76.6 Splenomegaly R16.1 Gastric varices I86.4 Myelodysplastic disease C94.6 Reflux esophagitis K21.0 (1) Respiratory failure Chronicity: acute Respiratory failure complication: unspecified whether with hypoxia or hypercapnia Qualified Code(s): J96.00 - Acute respiratory failure, unspecified whether with hypoxia or hypercapnia (2) Syncope Syncope type: unspecified Qualified Code(s): R55 - Syncope and collapse
[2021-09-22 21:07] LABS: Hematocrit (blood only) 31.3 % (37-47); Hemoglobin 9.6 g/dL (12.0-16.0)
[2021-09-23] MEDS: OCTREOTIDE ACETATE 500 MCG in 0.9 % SODIUM CHLORIDE 100 ML IV SCH (05:51)
[2021-09-23 06:49] LABS: INR 1.2 (0.9-1.1); Prothrombin Time 12.4 Seconds (9.0-12.0)
[2021-09-23 07:06] LABS: Hematocrit (blood only) 30.2 % (37-47); Hemoglobin 9.2 g/dL (12.0-16.0); Mean Corpuscular Hemoglobin 26.4 pg (25-34); Mean Corpuscular Hgb Conc 30.5 g/dL (32-36); Mean Corpuscular Volume 86.8 fL (80-100); Nucleated RBC # (auto) 0.12 K/uL (0-0); Nucleated RBC % (auto) 3.5 %; Platelet Count 78 K/uL (130-400); Platelet Estimate Decreased (Normal); RDW Coefficient of Variation 19.3 % (11.5-14.5); RDW Standard Deviation 61.2 fL (36.4-46.3); Red Blood Count 3.48 M/uL (4.2-5.4); White Blood Count 3.55 K/uL (4.8-10.8)
[2021-09-23 07:14] LABS: Albumin Level 2.9 gm/dl (3.4-5.0); BUN Creatinine Ratio 14.6 (10-20); Calcium 8.4 mg/dl (8.5-10.1); Creatinine Clr Calc Pharmacy 45.3 ml/min; Est GFR (African American) 58.2 ml/min; Est GFR (Non-African American) 50.2 ml/min; Potassium 3.8 mmol/L (3.5-5.1)
[2021-09-23 07:16] LABS: Albumin Globulin Ratio 1.1 (0.9-2); Bilirubin,Total 1.2 mg/dl (0.2-1); Globulin 2.7 gm/dl (2.5-4.0); Total Protein 5.6 gm/dl (6.4-8.2)
[2021-09-23] MEDS: PANTOprazole 40 MG in SYRINGE 0 ML IV SCH ×2 (08:18→21:30)
[2021-09-23] MEDS: rifAXIMin 550 MG TABLET PO SCH ×2 (08:19→20:18)
[2021-09-23] MEDS: LACTULOSE SYRUP 20 GM/30 ML UDC PO SCH (08:19)
--- NOTE | 2021-09-23 09:01 | Hospitalist Progress Note ---
Date of Service September 23, 2021 Assessment & Plan (1) Upper GI bleed: Plan: Hemoglobin is stabilized after slightly going down from admission. Gastroenterology does not feel need for endoscopy has had endoscopy in December without evidence of varices at that time. Since hemodynamically stable patient will be allowed to eat oral food octreotide is stopped patient be started on a heparin in case we need to stop it quickly and will evaluate her 24 hours to see if her hemoglobin remains stable then we may reinstitute her long-term anticoagulation with Xarelto. Patient has little clinical signs of epigastric distress at this time (2) Acute anemia: Plan: Hb down to 9.1 but stable now for 24 hours hemoglobin on 09/23 is 10.6 no need for transfusion unless < 7.0 or hypotensive (3) RAFIQ (acute kidney injury): Plan: Cr peaked at 1.7, down to 1.1 yesterday, 1.2 today making more than enough urine BP low normal, no indication for midodrine and albumin ATN, PRITESH vs possible HRS (doubtful since Cr improved) nephrology signed off (4) Respiratory failure: Plan: Respiratory failure/COVID-19 pneumonia/possible aspiration- stop Zosyn and Azithromycin, no concerns for bacterial pneumonia, breathing well room air and WBC normal stop Dexamethasone as she is 95% on room air, no distress, lungs clear on x-ray (5) Bradycardic cardiac arrest: Plan: echo shows preserved EF, normal wall motion elevated RV pressures at 60mmHg (6) Hepatic encephalopathy: Plan: ammonia 44 on admission, per records, her new accounts clerk was concerned with her having "brain fog" recently Lactulose 20mg BID add Rifaximin BID per GI recommendations ammonia down to 22 today and mental status is clear moving bowels 4-5x a day, green, orange colored will decrease lactulose to daily, continue Rifaximin (7) Syncope: Plan: Syncope- Bradycardia cardiac arrest, acute respiratory failure unclear what happened, no issues here on monitor respiratory status is stable HR and BP stable continue to monitor on tele will need PT/OT (8) COVID-19: Plan: See above no true symptoms, not hypoxic, stop Dexamethasone (9) Other pulmonary embolism and infarction: Plan: Patient back to heparin drip if stable after 24 hours will resume Xarelto (10) Cirrhosis: Plan: Cirrhosis/esophageal varices/portal hypertension/splenomegaly/gastric varices/ascites- d/w radiology, only has about 1L of fluid in abdomen, hold on paracentesis for now, Patient started on Lasix and spironolactone per GI recommendations. on transplant list in [facility] (11) Esophageal varices: Plan: Patient had endoscopy December 2020 without varices seen on upper endoscopy (12) Portal hypertension: (13) Splenomegaly: Plan: See above (14) Myelodysplastic disease: Plan: Follows in outpatient setting with hematology oncology Dr. Vergara appreciate his consult platelets are stable, wbc 5K (15) Reflux esophagitis: Plan: Protonix convert to po Admission and Anticipated Discharge Date Admission Date: September 18, 2021 Subjective Patient is in good spirits. She feels less foggy now but her ammonia level is down. She feels less tenseness in her abdomen. She was informed that there is no significant ascites to warrant paracentesis. I was seen with gastroenterology who started diuretic therapy. There is no plans on endoscopy we will reinitiate anticoagulation and follow hemoglobin Review of Systems Review of Systems: Mild distress and fatigue no headache, no visual changes no speech or swallowing issues no chest pain, pressure or palpitations no shortness of breath, cough or wheezes no abdominal pain, nausea or vomiting, no epigastric distress no dysuria, hematuria or frequency no focal joint pain or swelling no back pain, CVA tenderness or radicular pain no bruising, bleeding or rashes no focal signs of weakness or numbness or altered sensation no complaints of anxiety or depression.. Physical Exam Physical Exam: The patient appeared well nourished and normally developed. Vital signs as documented. Head exam is normocephalic atraumatic Neck is without JVD, thyromegaly, or carotid bruits. Lungs are clear to auscultation, decreased at the bases Cardiac exam, Rhythm is regular.. No murmurs, rubs or gallops. Abdominal exam reveals normal bowel sounds, soft non be dullness and slight distention but not significant Extremities are nonedematous and both pedal pulses are present Neurologic exam is alert and oriented, no focal loss of strength or sensation Skin is without bruises or rashes Psychologically is without concerns for anxiety or depression.. Results & Data Results & Data ([facility]) Vital Signs (Past 12 Hours) Vital Signs Temp Pulse Pulse Resp BP BP Pulse Ox 09/23/21 08:15 100/56 L 09/23/21 08:01 99.1 F 84 17 89/47 L 93 09/23/21 03:55 98.6 F 81 18 100/52 L 92 09/22/21 23:10 98.4 F 75 20 109/67 91 09/22/21 22:19 77 PG Care Time/CCT Total # of Minutes Spent Total Time Spent with Patient: Total time spent is greater than 50% in coordination of care (as documented) at patient's floor/unit and/or counseling patient: Coding Level of Care Code 75970 Subseq Hosp Care Lvl 3 Diagnoses Upper GI bleed K92.2 Acute anemia D64.9 RAFIQ (acute kidney injury) N17.9 Respiratory failure J96.00 Chronicity: acute Respiratory failure complication: unspecified whether with hypoxia or hypercapnia Bradycardic cardiac arrest R00.1; I46.2 Hepatic encephalopathy K72.90 Syncope R55 Syncope type: unspecified COVID-19 U07.1 Other pulmonary embolism and infarction I26.99 Cirrhosis K74.60 Esophageal varices I85.00 Portal hypertension K76.6 Splenomegaly R16.1 Myelodysplastic disease C94.6 Reflux esophagitis K21.0 (1) Respiratory failure Chronicity: acute Respiratory failure complication: unspecified whether with hypoxia or hypercapnia Qualified Code(s): J96.00 - Acute respiratory failure, unspecified whether with hypoxia or hypercapnia (2) Syncope Syncope type: unspecified Qualified Code(s): R55 - Syncope and collapse
--- NOTE | 2021-09-23 11:15 | Gastroenterology Progress Note ---
Date of Service September 23, 2021 Assessment & Plan (1) Cirrhosis: (2) Esophageal varices: (3) Acute anemia: (4) Ascites: Plan: * Continue Octreotide ggt and Pantoprazole 40 mg IV BID. * Agree with therapeutic/dx paracentesis when off isolation. * 2 g sodium restricted diet. * Continue supportive care. Admission and Anticipated Discharge Date Admission Date: September 18, 2021 Supervising Physician Co-Signing Physician Notes Agree with NOBLE Echeverria as above Discussed with Dr. Hernandez Abd: Soft, NT, ND Continue current therapy and supportive care Will add Aldactone therapy in addition to Lasix No plans for EGD at this time Subjective Patient reports intermittent dark stools and abdominal distention. She is awaiting therapeutic/dx paracentesis once she is off isolation for COVID-19. No abdominal pain or fevers. +cough. Mild intermittent nausea but no vomiting. Has been started on an octreotide ggt and Pantoprazole 40 mg IV BID. Hemoglobin did drop from 9.6 to 9.2 this morning. Review of Systems Constitutional: as per Subjective / HPI Gastrointestinal: as per Subjective / HPI Physical Exam Constitutional: WD/WN, vitals as above Respiratory: normal respiratory effort, lungs clear to auscultation Cardiovascular: RRR, no murmur, no edema Gastrointestinal (Abdomen): Inspection/Auscultation: + abdomen distended and normal bowel sounds Percussion/Palpation: abdomen soft and + ascites; abdomen nontender Psychiatric: A+Ox3, euthymic affect Results & Data Results & Data ([facility]) Vital Signs (Past 12 Hours) Vital Signs Temp Pulse Pulse Resp BP BP Pulse Ox 09/23/21 08:15 100/56 L 09/23/21 08:01 37.3 C 84 17 89/47 L 93 09/23/21 08:00 80 09/23/21 03:55 37.0 C 81 18 100/52 L 92 PG Care Time/CCT Total # of Minutes Spent Total Time Spent with Patient: Total time spent is greater than 50% in coordination of care (as documented) at patient's floor/unit and/or counseling patient: Coding Level of Care Code 73822 Subseq Hosp Care Lvl 3 Diagnoses Cirrhosis K74.60 Esophageal varices I85.00 Acute anemia D64.9 Ascites R18.8
[2021-09-23] MEDS ORDERED: SPIRONOLACTONE 25 MG TAB PO ONE (11:56)
[2021-09-23] MEDS ORDERED: FUROSEMIDE 40 MG TAB PO ONE (11:56)
[2021-09-23] MEDS ORDERED: Heparin IV Adult Wt-Based Standard *NO* Bolus Protocol IV SCH (12:00)
[2021-09-23] MEDS ORDERED: HEPARIN SODIUM/DEXTROSE 25,000 UNITS/500 ML BAG IV SCH (12:15)
[2021-09-23 12:58] LABS: Nucleated RBC # (auto) 0.19 K/uL (0-0); Nucleated RBC % (auto) 3.8 %
[2021-09-23 13:09] LABS: INR 1.2 (0.9-1.1); Partial Thromboplastin Ratio 1.1; Partial Thromboplastin Time 29.1 Seconds (21.0-31.0); Prothrombin Time 12.2 Seconds (9.0-12.0)
[2021-09-23 13:36] LABS: Hematocrit (blood only) 34.9 % (37-47); Hemoglobin 10.6 g/dL (12.0-16.0); Mean Corpuscular Hemoglobin 26.1 pg (25-34); Mean Corpuscular Hgb Conc 30.4 g/dL (32-36); Platelet Count 104 K/uL (130-400); RDW Coefficient of Variation 19.3 % (11.5-14.5); RDW Standard Deviation 60.5 fL (36.4-46.3); Red Blood Count 4.06 M/uL (4.2-5.4); White Blood Count 5.06 K/uL (4.8-10.8)
[2021-09-23 13:37] LABS: Anisocytosis Present; Basophils # (auto) 0.22 K/uL (0-0.2); Basophils % (auto) 4.3 %; Eosinophils # (auto) 0.13 K/uL (0-0.5); Eosinophils % (auto) 2.6 %; Giant Platelets 1+; Immature Granulocytes % (auto) 5.9 %; Lymphocytes # (auto) 0.69 K/uL (1.2-3.4); Lymphocytes % (auto) 13.6 %; Monocytes # (auto) 0.58 K/uL (0.11-0.59); Monocytes % (auto) 11.5 %; Neutrophils # (auto) 3.14 K/uL (1.4-6.5); Neutrophils % (auto) 62.1 %; Ovalocytes 1+; Platelet Estimate Decreased (Normal); Tear Drop Cells 2+
[2021-09-23 19:57] LABS: Partial Thromboplastin Ratio 1.4; Partial Thromboplastin Time 36.5 Seconds (21.0-31.0)
[2021-09-23] MEDS ORDERED: HEPARIN SOD (PORCINE) 1000 UNIT/ML IV ONE (20:30)
[2021-09-24 03:00] LABS: Hematocrit (blood only) 32.4 % (37-47); Mean Corpuscular Hemoglobin 26.5 pg (25-34); Mean Corpuscular Hgb Conc 30.9 g/dL (32-36); Mean Corpuscular Volume 85.7 fL (80-100); Nucleated RBC # (auto) 0.22 K/uL (0-0); Nucleated RBC % (auto) 5.7 %; Platelet Count 90 K/uL (130-400); RDW Coefficient of Variation 19.4 % (11.5-14.5); RDW Standard Deviation 60.4 fL (36.4-46.3); Red Blood Count 3.78 M/uL (4.2-5.4)
[2021-09-24 03:01] LABS: Calcium 8.2 mg/dl (8.5-10.1); Creatinine Clr Calc Pharmacy 43.8 ml/min; Est GFR (African American) 55.9 ml/min; Est GFR (Non-African American) 48.2 ml/min; Potassium 3.2 mmol/L (3.5-5.1)
[2021-09-24 03:03] LABS: Platelet Estimate Decreased (Normal)
[2021-09-24 03:04] LABS: Partial Thromboplastin Time 53.5 Seconds (21.0-31.0)
[2021-09-24] MEDS: PANTOprazole 40 MG in SYRINGE 0 ML IV SCH (07:59)
[2021-09-24] MEDS: LACTULOSE SYRUP 20 GM/30 ML UDC PO SCH (07:59)
[2021-09-24] MEDS: rifAXIMin 550 MG TABLET PO SCH (07:59)
[2021-09-24] MEDS ORDERED: POTASSIUM CHLORIDE CRTAB 20 MEQ TABCR PO STA (08:16)
[2021-09-24] MEDS ORDERED: SPIRONOLACTONE 25 MG TAB PO SCH (09:00)
[2021-09-24] MEDS ORDERED: FUROSEMIDE 40 MG TAB PO SCH (09:00)
[2021-09-24] MEDS ORDERED: RIVAROXABAN 10 MG TABLET PO SCH (09:00)
--- NOTE | 2021-09-24 10:15 | Gastroenterology Progress Note ---
Date of Service September 24, 2021 Assessment & Plan (1) Cirrhosis: (2) Esophageal varices: (3) Acute anemia: (4) Ascites: (5) Hepatic encephalopathy: Plan: * Continue Pantoprazole 40 mg IV BID. * Continue Lasix 40 mg daily. Increase Aldactone to 100 mg daily. * 2 g sodium restricted diet. * Continue lactulose 20g daily with titration to goal of 3 bms per day. * Continue Xifaxan 550 mg BID. * Rest per primary team. Admission and Anticipated Discharge Date Admission Date: September 18, 2021 Supervising Physician Co-Signing Physician Notes Agree with NOBLE Echeverria as above Will increase Aldactone to 100 mg by mouth daily Continue current therapy and supportive care Subjective Patient reports persistent abdominal distention today although she reports she has had some positive response to the Aldactone. Remains on Lasix 40 mg daily and Aldactone 50 mg daily. She denies any cough, dyspnea, dizziness, syncope. +fatigue. No abdominal pain, jaundice, pruritus, or dark urine. Continues lactulose and rifaximin for HE associated with cirrhosis. Hemoglobin today is 10 and she denies any overt GIB symptoms. Review of Systems Constitutional: as per Subjective / HPI Gastrointestinal: as per Subjective / HPI Genitourinary: as per Subjective / HPI Integumentary: as per Subjective / HPI Physical Exam Constitutional: WD/WN, vitals as above Eyes: + anicteric sclerae and EOM intact bilaterally Neck: normal visual inspection Respiratory: normal respiratory effort Gastrointestinal (Abdomen): Inspection/Auscultation: + abdomen distended Percussion/Palpation: abdomen soft; abdomen nontender, no guarding and abdomen not rigid Musculoskeletal: Ankle: no effusion Skin: no jaundice Psychiatric: A+Ox3, euthymic affect Results & Data Results & Data ([facility]) Vital Signs (Past 12 Hours) Vital Signs Temp Pulse Pulse Resp BP Pulse Ox 09/24/21 07:53 36.7 C 79 18 103/57 L 92 09/24/21 07:34 75 09/24/21 03:46 36.8 C 76 18 100/60 93 09/23/21 23:11 37.1 C 84 20 99/56 L 94 09/23/21 22:24 79 Laboratory Results Abnormal lab results 09/23/21 09/23/21 09/23/21 Range/Units 12:34 12:34 19:28 WBC (4.8-10.8) K/uL RBC 4.06 L (4.2-5.4) M/uL Hgb 10.6 L (12.0-16.0) g/dL Hct 34.9 L (37-47) % MCHC 30.4 L (32-36) g/dL RDW Std Deviation 60.5 H (36.4-46.3) fL RDW Coeff of Polina 19.3 H (11.5-14.5) % Plt Count 104 L (130-400) K/uL Lymph # (Auto) 0.69 L (1.2-3.4) K/uL Baso # (Auto) 0.22 H (0-0.2) K/uL Immature Gran # (Auto) 0.30 H (0.00-0.02) K/uL Absolute Nucleated RBC 0.19 H (0-0) K/uL Platelet Estimate Decreased L (Normal) PT 12.2 H (9.0-12.0) Seconds INR 1.2 H (0.9-1.1) APTT 36.5 H (21.0-31.0) Seconds Potassium (3.5-5.1) mmol/L Glucose (70-99) mg/dl Calcium (8.5-10.1) mg/dl 09/24/21 09/24/21 09/24/21 Range/Units 02:19 02:19 02:19 WBC 3.90 L (4.8-10.8) K/uL RBC 3.78 L (4.2-5.4) M/uL Hgb 10.0 L (12.0-16.0) g/dL Hct 32.4 L (37-47) % MCHC 30.9 L (32-36) g/dL RDW Std Deviation 60.4 H (36.4-46.3) fL RDW Coeff of Polnia 19.4 H (11.5-14.5) % Plt Count 90 L (130-400) K/uL Lymph # (Auto) (1.2-3.4) K/uL Baso # (Auto) (0-0.2) K/uL Immature Gran # (Auto) (0.00-0.02) K/uL Absolute Nucleated RBC 0.22 H (0-0) K/uL Platelet Estimate Decreased L (Normal) PT (9.0-12.0) Seconds INR (0.9-1.1) APTT 53.5 H* (21.0-31.0) Seconds Potassium 3.2 L D (3.5-5.1) mmol/L Glucose 111 H (70-99) mg/dl Calcium 8.2 L (8.5-10.1) mg/dl PG Care Time/CCT Total # of Minutes Spent Total Time Spent with Patient: Total time spent is greater than 50% in coordination of care (as documented) at patient's floor/unit and/or counseling patient: Coding Level of Care Code 26998 Subseq Hosp Care Lvl 3 Diagnoses Cirrhosis K74.60 Esophageal varices I85.00 Acute anemia D64.9 Ascites R18.8 Hepatic encephalopathy K72.90
[2021-09-24 11:14] VITALS: PULSE 81; TEMP 97.9; O2SAT 96
[2021-09-24 12:05] VITALS: BP 100/56
--- NOTE | 2021-09-24 18:28 | Discharge Summary ---
Date of Service September 24, 2021 Admission HPI Per Admitting Provider The patient is a 66-year-old female with a past medical history including lactose intolerance, chronic diarrhea, vitamin D deficiency, reflux esophagitis, portal hypertension, pulmonary embolism and infarction, hyperlipidemia, diverticulosis, diaphragmatic hernia, splenomegaly, myelodysplastic disease, chronic anticoagulation with warfarin, cirrhosis, and ascites with history of recent paracentesis. Principal Diagnosis hepatic encephalopathy anemia cirrhosis, with ascites, protein S deficiency with history of PE on chronic anticoaguation Discharge Exam The patient appeared well Vital signs as documented. Lungs are clear to auscultation and appear unlabored Cardiac exam, Rhythm is regular.. No murmurs, rubs or gallops. Abdominal exam reveals normal bowel sounds, soft non tender, no masses Extremities are nonedematous and both pedal pulses are normal. Neurologic exam is alert and oriented, no focal loss of strength or sensation Skin is without bruises or rashes Psychologically is without concerns for anxiety or depression. Discharge Data Allergies Allergy/AdvReac Type Severity Reaction Status Date / Time No Known Allergies Allergy Verified 09/18/21 17:42 Consultations 09/18/21 19:15 ED Decision to Admit Stat 09/18/21 19:18 Consult Safety Consultant Stat 09/18/21 22:17 Consult Safety Consultant Routine 09/19/21 08:16 Consult Hematology Routine 09/19/21 12:45 Consult Gastroenterology Routine Consult Nephrology Routine Ordered Studies 09/18/21 17:22 CT angio head w con Stat CT angio neck with con Stat CT head/brain wo con Stat 09/18/21 17:36 CT angio chest PE protocol Stat 09/18/21 17:41 CT abd pelvis IV con only Stat Hospital Course (1) Upper GI bleed: Hemoglobin is stabilized after slightly going down from admission. Gastroenterology does not feel need for endoscopy has had endoscopy in December without evidence of varices at that time. Since hemoglobin remained stable be started on heparin it continues to be stable transition to Xarelto she is able to eat food and will discharge her home on her typical anticoagulation Patient has no clinical signs of epigastric distress at this time (2) Acute anemia: Hb stable no suspicion for acute GI bleeding at this time no need for transfusion unless < 7.0 or hypotensive (3) RAFIQ (acute kidney injury): Resolved Cr peaked at 1.7, down to 1.1 yesterday, 1.2 today making more than enough urine nephrology signed off (4) Respiratory failure: Respiratory failure/COVID-19 pneumonia/possible aspiration-resolved stop Zosyn and Azithromycin, no concerns for bacterial pneumonia, breathing well room air and WBC normal stop Dexamethasone as she is 95% on room air, no distress, lungs clear on x-ray No need for supplemental oxygen (5) Bradycardic cardiac arrest: echo shows preserved EF, normal wall motion elevated RV pressures at 60mmHg (6) Hepatic encephalopathy: ammonia 44 on admission, per records, 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 was concerned with her having "brain fog" recently Lactulose 20mg daily with titration for 2-4 bowel movements a day add Rifaximin BID per GI recommendations ammonia down to 22 today and mental status is clear (7) Syncope: Syncope- Bradycardia cardiac arrest, acute respiratory failure unclear what happened, no issues here on monitor respiratory status is stable HR and BP stable Because of her syncope and possible bradycardia to avoid hypovolemia I will only start her spironolactone at 50 not 100 is recommended by GI medicine and continue to keep her Lasix at 40 (8) COVID-19: See above no true symptoms, not hypoxic, stop Dexamethasone (9) Other pulmonary embolism and infarction: resume Xarelto (10) Cirrhosis: Cirrhosis/esophageal varices/portal hypertension/splenomegaly/gastric varices/ascites- d/w radiology, only has about 1L of fluid in abdomen, hold on paracentesis for now, Patient started on Lasix and spironolactone per GI recommendations. Avoid syncope on presentation we will not have such robust doses until checking outpatient labs and follow-up visit on transplant [facility] (11) Esophageal varices: Patient had endoscopy December 2020 without varices seen on upper endoscopy (12) Portal hypertension: (13) Splenomegaly: See above (14) Myelodysplastic disease: Follows in outpatient setting with hematology oncology Dr. Veragra appreciate his consult platelets are stable, wbc 5K (15) Reflux esophagitis: Protonix convert to po Total Time Total Time Spent Total Time Spent (In Minutes): It required greater than 30 minutes to prepare this patient for discharge Discharge Plan Discharge Items Patient Disposition: Home - Self-Care Reason For Visit: RESPIRATORY FAILURE Discharge Diagnosis: elevated ammonia level resulting in confusion anemia covid infection Activity: Per Instructions section Activity Comment: slowly increase activity Non-emergency contact: Primary Care Provider and Specialist Call non-emergency contact if: your symptoms worsen Follow-up/Referrals: Shira Yarbrough MD [Primary Care Provider] - 10/08/21 9:20 am Diet: Low Sodium (2gm) Ambulatory Orders: Ammonia (Routine) Timeframe: 2 Days Location: Determined by Patient Ordered By: Gerardo Hernandez Basic Metabolic Panel (Routine) Timeframe: 2 Days Location: Determined by Patient Ordered By: Gerardo Hernandez Complete Blood Count no Diff (Routine) Timeframe: 2 Days Location: Determined by Patient Ordered By: Gerardo Hernandez Addtl Attending Provider Instructions: You have been diagnosed with covid infection, it would be recommended that you quarantine yourself for 10 days from your first test or first symptoms, and if at the 10th day you have no symptoms the you can come off quarantine but use common sense precautions. Quarantine means attempting to stay away from people who have not had an active covid infection in the past, and if you have to be around others to wear a mask even if you are indoors, do not share a room to sleep in with others until you are out of quarantine. If you still have symptoms at the 10th day, continue to quarantine until you are symptom free for 48 hours With regard to your liver, to keep the ammonia level down you have to have at least 2 bowel movements a day , if you are having more than 4 reduce your lactulose dose by one ( even if that means not taking it for a day) if you have 1 or less bowel movements a day increase the lactulose dose by one dose. Try to have a low salt diet to discourage your ascites( fluid in your abdomen) from increasing. Dr Blank has recommended 2 fluid medications, Furosemide and spironolactone. If you feel you are becomming too dehydrated or are dizzy/weak call Dr Blank or your Primary care for advice in reducing or stopping these. To help with you blood counts, have a healthy diet and consider a multiple vitamin with iron Pending Studies at Discharge: No Stand-Alone Forms: [employer], Smoking Cessation Medications and DC Order Prescriptions: New lactulose 20 gram/30 mL Solution 20 g PO DAILY Qty: 1200 RF: 0 spironolactone 50 mg tablet 50 mg PO DAILY Qty: 30 RF: 0 Continued Xarelto 10 mg tablet 10 mg PO QPM Qty: 90 RF: 1 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 40 mg tablet,delayed release (DR/EC) 40 mg PO BID Qty: 180 RF: 1 propranolol 10 mg tablet 10 mg PO TID Qty: 270 RF: 1 Jakafi 10 mg tablet 10 mg PO BID RF: 0 cholecalciferol (vitamin D3) [Vitamin D3] 2,000 unit Capsule 2,000 unit PO HS RF: 0 citalopram [Celexa] 20 mg tablet 30 mg PO HS RF: 0 Changed furosemide 20 mg tablet 40 mg PO DAILY Qty: 60 RF: 0 Discharge Orders: Discharge Order (Routine); Ordered 09/24/21 Ordered By: Gerardo Hernandez Admission Data Admit Date/Time: 09/18/21 20:16 Attending Provider: Gerardo Hernandez Admit Provider: Joe Odonnell Primary Care Provider: Shira Yarbrough Other Providers: Gallito Chaparro ; Joe Odonnell ; Manny Vergara V. ; Vitaly Blank ; Baldomero Greer Other Interventions: Discharge Summary Assessment (RN) Last Done: 09/24/21 12:04 Coding Level of Care Code D/C DAY MANAGEMENT >30 MINS Diagnoses Upper GI bleed K92.2 Acute anemia D64.9 RAFIQ (acute kidney injury) N17.9 Respiratory failure J96.00 Chronicity: acute Respiratory failure complication: unspecified whether with hypoxia or hypercapnia Bradycardic cardiac arrest R00.1; I46.2 Hepatic encephalopathy K72.90 Syncope R55 Syncope type: unspecified COVID-19 U07.1 Other pulmonary embolism and infarction I26.99 Cirrhosis K74.60 Esophageal varices I85.00 Portal hypertension K76.6 Splenomegaly R16.1 Myelodysplastic disease C94.6 Reflux esophagitis K21.0
[2021-09-25] MEDS ORDERED: SPIRONOLACTONE 100 MG TAB PO SCH (09:00)
--- NOTE | 2021-10-11 15:38 | Coding Query ---
To promote full compliance with coding requirements relating to patient care, provider participation is requested in all cases of meat seafood associate uncertainty. Please assist us with the question(s) below: Coding Question(s): The diagnosis below was documented in the (meat seafood associate fill out source document ie H&P, progress notes, etc.) then medication was stopped. Please indicate if it is still a possible diagnosis or ruled out. Physician's Response(s): PNEUMONIA DUE TO COVID ( ) Diagnosed and POA ( ) Diagnosed and not POA (xx ) Ruled out ( ) Other (please specify) MTDD
--- NOTE | 2021-10-11 15:40 | Coding Query ---
CODING QUERY To promote full compliance with coding requirements relating to patient care, provider participation is requested in all cases of medical insurance coder uncertainty. Please assist us with the question(s) below: Coding Question(s): Please clarify if the upper GI bleed was present. DC summary states the Hb was stable. suspected but not confirmed Upper Gi bleed Physician's Response(s): Thank you Anita Lei Principal Diagnosis: "that condition established after study, to be chiefly responsible for occasioning the admission of the patient to the hospital for care." Co-Existing Principal Diagnosis: "when two or more diagnoses equally meet the criteria for principal diagnosis as determined by the circumstances of admission, diagnostic work up, and/or therapy provided, and the Alphabetic Index, Tabular List, or another coding guideline does not provide sequencing direction, any one of the diagnoses may be sequenced first." "When the physician has documented what appears to be a current diagnosis in the body of the record, but has not included the diagnosis in the final diagnostic statement, the physician should be asked whether the diagnosis should be added." (Source Coding [facility] 2 QTR90. p3-4) MILE
== END 2021-09-24 14:00 | disposition home or self-care (01) | DRG 441 ==
LOC: ED 17:12 → SUATTDRO 20:16 → 2E 20:16 → 2W 09-21 11:35

== ENCOUNTER 2022-05-26 16:03 | Inpatient (IN) ==
[2022-05-26] MEDS ORDERED: CEFEPIME 2,000 MG/20 ML VIAL IV STA (16:10)
[2022-05-26] MEDS ORDERED: SODIUM CHLORIDE 0.9% 1000ML 1,000 ML IV SCH (16:15)
[2022-05-26] MEDS ORDERED: ONDANSETRON INJ 2 MG/ML 2 ML VIAL IV STA (16:22)
--- NOTE | 2022-05-26 16:22 | Emergency Department Note ---
History of Present Illness General Chief complaint: Syncope History of Present Illness 66-year-old female presents to the ED with a chief complaint of generalized weakness and feeling faint. She states that she has daily diarrhea. She has had a couple episodes of diarrhea today. She has a history of stomach problems. She also has a history of cirrhosis and pulmonary hypertension. She also reported to EMS that she was coughing up some blood earlier today. She does have a history of upper GI bleed and esophageal varices. She has history of PE and a protein S deficiency. The patient is chronically on Lasix as well as rivaroxaban. EMS found the patient to have a low blood pressure. They provided almost 2 L of normal saline in route here. Lowest blood pressure for them was around 80 systolic. The patient reports feeling a little short of breath. She has some abdominal pain although she reports that this seems to be mostly chronic. No other complaints at this time. Home Medications Medication Instructions Recorded Confirmed Type cholecalciferol (vitamin D3) 50 2,000 unit PO HS 08/30/18 02/06/22 History mcg (2,000 unit) capsule (Vitamin D3) ruxolitinib 10 mg tablet (Jakafi) 10 mg PO BID 05/25/19 02/06/22 History rivaroxaban 10 mg tablet (Xarelto) 10 mg PO QPM #90 tabs 05/02/21 02/06/22 Rx spironolactone 50 mg tablet 50 mg PO DAILY #30 tabs 10/30/21 02/06/22 Rx citalopram 20 mg tablet (Celexa) 30 mg PO HS #135 tabs 12/09/21 02/06/22 Rx lactulose 20 gram/30 mL oral 20 g (30 mL) PO DAILY #1,200 mL 12/09/21 02/06/22 Rx solution 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 40 mg tablet,delayed 40 mg PO BID #180 tabs 12/09/21 02/06/22 Rx release furosemide 20 mg tablet 40 mg PO DAILY #60 tabs 03/03/22 Rx propranolol 10 mg tablet 10 mg PO TID #270 tabs 03/07/22 Rx Allergies Allergy/AdvReac Type Severity Reaction Status Date / Time No Known Allergies Allergy Verified 02/06/22 10:26 Past Med/Surg History Medical History Anticoagulant long-term use Anxiety Cirrhosis Depression Erythromelalgia Esophageal varices hx banding 2 years ago Hepatomegaly Herpes simplex History of blood clots neck, liver > 20 years ago History of DVT (deep vein thrombosis) RLE - > 20 years ago History of gastrointestinal hemorrhage History of pulmonary embolism > 20 years ago Inflammatory polyarthritis Lung nodule seen on imaging study Myelodysplastic disease follows with Dr. Vergara On anticoagulant therapy Osteopenia determined by x-ray Portal hypertension Splenomegaly Upper GI bleed hx Surgical History H/O shoulder surgery Dr. Cornejo for left shoulder manipulation hx History of bone marrow biopsy History of colonoscopy History of esophagogastroduodenoscopy (EGD) most recent 12/25/20 [place] History of liver biopsy History of tubal ligation Family History Father , age 44 Heart disease Myocardial infarction Mother Hypertension Sister Coronary heart disease Mood disorder Sister Mood disorder Sister Mood disorder Sister Mood disorder Sister Mood disorder Sister Mood disorder Sister Mood disorder Brother Alcohol abuse Son , age 26 MVA (motor vehicle accident) Grandmother (Maternal) Breast cancer Aunt Breast cancer Other No family history of adverse response to anesthesia Denies family history of Ovarian cancer Prostate cancer Colorectal cancer Social History Smoking Status: Never smoker Second Hand Exposure: No; Hx Alcohol Use: No Hx Substance Use: No Preferred Language: Latvian Communication Ability: Effective Visual Impairment: No Limitations Hearing Ability: Normal Coil Winding Supervisor Required: No Beliefs That Will Affect Care: None marital status: Current Living Situation: Spouse current occupational status: retired Feels Safe at Home: Yes Childhood Exposure to Second-Hand Smoke: Yes Dental Care, Regularly: Yes Physical Activity Frequency: Does not Exercise Seatbelt Use: always Sunscreen Use: Yes Assistive Devices: Glasses Review of Systems A total of 10 systems reviewed and were otherwise negative Physical Exam Vital Signs Vital Signs - 24 hr 05/26/22 16:18 05/26/22 17:00 05/26/22 18:23 Temperature 36.5 C Temperature Source Oral Pulse Rate 70 Pulse Rate [Apical] Pulse Rate from SpO2 Sensor Pulse Rhythm Regular Pulse Strength Normal Respiratory Rate 24 Respiratory Effort / Characteristics Non-Labored Spontaneous Respiratory Depth Normal Respiratory Pattern Regular Blood Pressure 119/78 Blood Pressure [Right Arm] Blood Pressure Mean 91 Blood Pressure Mean [Right Arm] Blood Pressure Position Sitting Pulse Oximetry 94 98 98 Oxygen Delivery Method Room Air Nasal Cannula Nasal Cannula Oxygen Flow Rate 2 2 Sepsis Recent Fever Within 48 Hours No Sepsis New/Unexplained Change in Mental Status No Sepsis Action Taken by Nursing No Action Required 05/26/22 16:21 05/26/22 16:32 05/26/22 16:45 Temperature Temperature Source Pulse Rate 68 69 71 Pulse Rate [Apical] Pulse Rate from SpO2 Sensor 68 69 71 Pulse Rhythm Pulse Strength Respiratory Rate 24 24 22 Respiratory Effort / Characteristics Respiratory Depth Respiratory Pattern Blood Pressure 119/78 111/45 L 111/58 L Blood Pressure [Right Arm] Blood Pressure Mean 91 67 75 Blood Pressure Mean [Right Arm] Blood Pressure Position Pulse Oximetry 93 95 90 Oxygen Delivery Method Room Air Room Air Room Air Oxygen Flow Rate Sepsis Recent Fever Within 48 Hours Sepsis New/Unexplained Change in Mental Status Sepsis Action Taken by Nursing 05/26/22 17:00 05/26/22 17:15 05/26/22 17:30 Temperature Temperature Source Pulse Rate 72 70 69 Pulse Rate [Apical] Pulse Rate from SpO2 Sensor 71 70 69 Pulse Rhythm Pulse Strength Respiratory Rate 26 H 22 20 Respiratory Effort / Characteristics Respiratory Depth Respiratory Pattern Blood Pressure 125/71 107/64 113/60 Blood Pressure [Right Arm] Blood Pressure Mean 89 78 77 Blood Pressure Mean [Right Arm] Blood Pressure Position Pulse Oximetry 99 98 98 Oxygen Delivery Method Nasal Cannula Nasal Cannula Nasal Cannula Oxygen Flow Rate 2 2 2 Sepsis Recent Fever Within 48 Hours Sepsis New/Unexplained Change in Mental Status Sepsis Action Taken by Nursing 05/26/22 17:45 05/26/22 19:10 05/26/22 19:10 Temperature Temperature Source Pulse Rate 69 Pulse Rate [Apical] 70 Pulse Rate from SpO2 Sensor 69 Pulse Rhythm Pulse Strength Respiratory Rate 16 16 Respiratory Effort / Characteristics Non-Labored Respiratory Depth Respiratory Pattern Blood Pressure 101/57 L Blood Pressure [Right Arm] 90/53 L Blood Pressure Mean 71 Blood Pressure Mean [Right Arm] 65 Blood Pressure Position Pulse Oximetry 98 95 Oxygen Delivery Method Nasal Cannula Room Air Oxygen Flow Rate 2 Sepsis Recent Fever Within 48 Hours Sepsis New/Unexplained Change in Mental Status Sepsis Action Taken by Nursing CONSTITUTIONAL/VITAL SIGNS: Reviewed / noted above. GENERAL: Non-toxic in appearance. INTEGUMENTARY: Warm, dry, and grayish color. HEAD: Normocephalic. EYES: without scleral icterus or trauma. ENT/OROPHARYNX: clear and moist. LYMPHADENOPATHY/NECK: Is supple without lymphadenopathy or meningismus. RESPIRATORY: Clear to auscultation bilaterally. No increased work of breathing. CARDIOVASCULAR: Regular rate and rhythm. GI/ABDOMEN: Soft and diffusely tender more so in the lower abdomen. No organomegaly or pulsatile mass. EXTREMITIES: Warm and well perfused. NEUROLOGICAL: Intact without focal deficits. PSYCHIATRIC: normal affect. MUSCULOSKELETAL: Normally developed with good muscle tone. TRIAGE NURSING DOCUMENTATION REVIEWED. Course Administered Medications Discontinued Medications Sodium Chloride (Nss 1000ml) 1,000 mls @ 999 mls/hr IV .[id number] PATRICIA Stop: 05/26/22 17:15 Last Infusion: 05/26/22 17:39 Dose: 0 mls/hr Documented By: Admin: 05/26/22 16:39 Dose: 999 mls/hr Documented By: VINI Cefepime HCl (Maxipime) 2,000 mg in 20 mls @ 5 mls/min IV NOW STA; Protocol Stop: 05/26/22 16:13 Last Admin: 05/26/22 16:39 Dose: 5 mls/min Documented By: VINI Acetaminophen (Ofirmev) 1,000 mg in 100 mls @ 400 mls/hr IV NOW STA Stop: 05/26/22 17:12 Last Infusion: 05/26/22 17:22 Dose: 0 mls/hr Documented By: Admin: 05/26/22 17:07 Dose: 400 mls/hr Documented By: VINI Ioversol (Optiray 300 100ml) 93 ml IV ONCE ONE Stop: 05/26/22 18:13 Last Admin: 05/26/22 18:14 Dose: 93 ml Documented By: [facility] Ondansetron HCl (Ondansetron Inj 2 Mg/Ml 2 Ml Vial) 4 mg IV NOW STA Stop: 05/26/22 16:23 Last Admin: 05/26/22 16:39 Dose: 4 mg Documented By: VINI Medical Decision Making Differential Diagnosis Differential includes acute coronary syndrome, myocardial infarction, CVA, TIA, anemia, infection, pneumonia, UTI, pyelonephritis, poor nutrition, dehydration, electrolyte disturbance,hypoglycemia. Medical Records Attestation: I reviewed the patient's medical records. Home Medications Current Medication List: was personally reviewed by me Laboratory Data Attestation: I reviewed the patient's lab results. Result diagrams: 05/26/22 16:07 05/26/22 17:15 Lab Results 05/26/22 05/26/22 05/26/22 Range/Units 16:07 16:07 16:07 WBC 39.56 H* (4.8-10.8) K/ul RBC 4.84 (3.93-5.22) M/uL Hgb 12.4 (12.0-16.0) g/dl POC Hgb (12.0-16.0) g/dl Hct 42.0 (34.1-44.9) % POC Hct (37-47) % MCV 86.8 (80.0-100.0) fL MCH 25.6 (25.0-34.0) pg MCHC 29.5 L (32.0-36.0) g/dL RDW Std Deviation 55.6 H (36.4-46.3) fL RDW Coeff of Polina 18.8 H (11.5-14.5) % Plt Count 466 H (130-400) K/uL Absolute Nucleated RBC 10.63 H (0-0) K/uL Nucleated RBC % (auto) 26.9 % Neutrophils % (Manual) 34 % Lymphocytes % (Manual) 20 % Reactive Lymphs % (Man) 5 % Monocytes % (Manual) 3 % Eosinophils % (Manual) 3 % Basophils % (Manual) 8 % Metamyelocytes % (Man) 14 % Myelocytes % (Man) 8 % Promyelocytes % (Man) 3 % Blast Cells % (Manual) 3 % Neutrophils # (Manual) 13.45 H (1.4-6.5) K/uL Total Absolute Neuts 13.45 H (1.4-6.5) K/uL Lymphocytes # (Manual) 7.91 H (1.2-3.4) K/uL Reactive Lymphs # 1.98 K/uL Total Abs Lymphocytes 9.89 H (1.2-3.4) K/uL Monocytes # (Manual) 1.19 H (0.24-0.82) K/uL Eosinophils # (Manual) 1.19 H (0-0.50) K/uL Basophils # (Manual) 3.16 H (0-0.2) K/uL Metamyelocytes # (Man) 5.54 H (0-0) K/uL Myelocytes # (Manual) 3.16 H (0-0) K/uL Promyelocytes # (Man) 1.19 H (0-0) K/uL Blast Cells # (Man) 1.19 H (0-0) K/uL Polychromasia 1+ Poikilocytosis Present Tear Drop Cells 2+ Echinocytes 1+ Schistocytes 1+ PT 19.9 H (9.0-12.0) Seconds INR 1.9 H (0.9-1.1) APTT 39.7 H (21.0-31.0) Seconds PTT Ratio 1.4 POC Sodium (135-144) mmol/L Sodium 141 (136-145) mmol/L POC Potassium (3.3-5.0) mmol/L Potassium TNP POC Chloride (101-112) mmol/L Chloride 116 H (98-107) mmol/L Carbon Dioxide 21 (21-32) mmol/L POC Total CO2 (24-31) mmol/L Anion Gap 4 (3-11) POC Anion Gap (16-25) mmol/L POC BUN (7-18) mg/dl BUN 26 H (6-23) mg/dl Creatinine 1.55 H (0.6-1.2) mg/dl POC Creatinine (0.6-1.3) mg/dl Est Cr Clr Drug Dosing 33.1 ml/min Est GFR ( Amer) 40.6 ml/min Est GFR (Non-Af Amer) 35.0 ml/min BUN/Creatinine Ratio 16.8 (10-20) Glucose 63 L (70-99(Fasting)) mg/dl POC Glucose (70-99) mg/dl POC Glucose (other) (70-99) mg/dl Lactate (0.4-2.0) mmol/L Calcium 7.4 L (8.5-10.1) mg/dl POC Ioniz Calcium Jerald (1.12-1.32) mmol/l Magnesium 1.7 (1.7-2.4) mg/dl Total Bilirubin 1.8 H (0.2-1.0) mg/dl AST TNP ALT 32 (7-52) U/L Alkaline Phosphatase 207 H (34-104) U/L Ammonia (18-72) umol/L Troponin I High Sens 41.9 H (0-14) pg/ml Total Protein 5.2 L (6.0-8.3) gm/dl Albumin 3.5 (3.4-5.0) gm/dl Globulin 1.7 L (2.5-4.0) gm/dl Albumin/Globulin Ratio 2.1 H (0.9-2) Procalcitonin (0-0.5) ng/ml SARS-CoV-2 (PCR) (Negative) Influenza Type A (PCR) (Neg) Influenza Type B (PCR) (Neg) RSV (RT-PCR) (Neg) 05/26/22 05/26/22 05/26/22 Range/Units 16:07 16:12 16:20 WBC (4.8-10.8) K/ul RBC (3.93-5.22) M/uL Hgb (12.0-16.0) g/dl POC Hgb 13.6 (12.0-16.0) g/dl Hct (34.1-44.9) % POC Hct 40 (37-47) % MCV (80.0-100.0) fL MCH (25.0-34.0) pg MCHC (32.0-36.0) g/dL RDW Std Deviation (36.4-46.3) fL RDW Coeff of Polina (11.5-14.5) % Plt Count (130-400) K/uL Absolute Nucleated RBC (0-0) K/uL Nucleated RBC % (auto) % Neutrophils % (Manual) % Lymphocytes % (Manual) % Reactive Lymphs % (Man) % Monocytes % (Manual) % Eosinophils % (Manual) % Basophils % (Manual) % Metamyelocytes % (Man) % Myelocytes % (Man) % Promyelocytes % (Man) % Blast Cells % (Manual) % Neutrophils # (Manual) (1.4-6.5) K/uL Total Absolute Neuts (1.4-6.5) K/uL Lymphocytes # (Manual) (1.2-3.4) K/uL Reactive Lymphs # K/uL Total Abs Lymphocytes (1.2-3.4) K/uL Monocytes # (Manual) (0.24-0.82) K/uL Eosinophils # (Manual) (0-0.50) K/uL Basophils # (Manual) (0-0.2) K/uL Metamyelocytes # (Man) (0-0) K/uL Myelocytes # (Manual) (0-0) K/uL Promyelocytes # (Man) (0-0) K/uL Blast Cells # (Man) (0-0) K/uL Polychromasia Poikilocytosis Tear Drop Cells Echinocytes Schistocytes PT (9.0-12.0) Seconds INR (0.9-1.1) APTT (21.0-31.0) Seconds PTT Ratio POC Sodium 145 H (135-144) mmol/L Sodium (136-145) mmol/L POC Potassium 4.6 (3.3-5.0) mmol/L Potassium POC Chloride 114 H (101-112) mmol/L Chloride (98-107) mmol/L Carbon Dioxide (21-32) mmol/L POC Total CO2 21 L (24-31) mmol/L Anion Gap (3-11) POC Anion Gap 15.0 L (16-25) mmol/L POC BUN 33 H (7-18) mg/dl BUN (6-23) mg/dl Creatinine (0.6-1.2) mg/dl POC Creatinine 1.6 H (0.6-1.3) mg/dl Est Cr Clr Drug Dosing ml/min Est GFR ( Amer) ml/min Est GFR (Non-Af Amer) ml/min BUN/Creatinine Ratio (10-20) Glucose (70-99(Fasting)) mg/dl POC Glucose (70-99) mg/dl POC Glucose (other) 67 L* (70-99) mg/dl Lactate 1.7 (0.4-2.0) mmol/L Calcium (8.5-10.1) mg/dl POC Ioniz Calcium Jerald 1.11 L (1.12-1.32) mmol/l Magnesium (1.7-2.4) mg/dl Total Bilirubin (0.2-1.0) mg/dl AST ALT (7-52) U/L Alkaline Phosphatase (34-104) U/L Ammonia (18-72) umol/L Troponin I High Sens (0-14) pg/ml Total Protein (6.0-8.3) gm/dl Albumin (3.4-5.0) gm/dl Globulin (2.5-4.0) gm/dl Albumin/Globulin Ratio (0.9-2) Procalcitonin 0.41 (0-0.5) ng/ml SARS-CoV-2 (PCR) (Negative) Influenza Type A (PCR) (Neg) Influenza Type B (PCR) (Neg) RSV (RT-PCR) (Neg) 05/26/22 05/26/22 05/26/22 Range/Units 16:48 17:15 17:15 WBC (4.8-10.8) K/ul RBC (3.93-5.22) M/uL Hgb (12.0-16.0) g/dl POC Hgb (12.0-16.0) g/dl Hct (34.1-44.9) % POC Hct (37-47) % MCV (80.0-100.0) fL MCH (25.0-34.0) pg MCHC (32.0-36.0) g/dL RDW Std Deviation (36.4-46.3) fL RDW Coeff of Polina (11.5-14.5) % Plt Count (130-400) K/uL Absolute Nucleated RBC (0-0) K/uL Nucleated RBC % (auto) % Neutrophils % (Manual) % Lymphocytes % (Manual) % Reactive Lymphs % (Man) % Monocytes % (Manual) % Eosinophils % (Manual) % Basophils % (Manual) % Metamyelocytes % (Man) % Myelocytes % (Man) % Promyelocytes % (Man) % Blast Cells % (Manual) % Neutrophils # (Manual) (1.4-6.5) K/uL Total Absolute Neuts (1.4-6.5) K/uL Lymphocytes # (Manual) (1.2-3.4) K/uL Reactive Lymphs # K/uL Total Abs Lymphocytes (1.2-3.4) K/uL Monocytes # (Manual) (0.24-0.82) K/uL Eosinophils # (Manual) (0-0.50) K/uL Basophils # (Manual) (0-0.2) K/uL Metamyelocytes # (Man) (0-0) K/uL Myelocytes # (Manual) (0-0) K/uL Promyelocytes # (Man) (0-0) K/uL Blast Cells # (Man) (0-0) K/uL Polychromasia Poikilocytosis Tear Drop Cells Echinocytes Schistocytes PT (9.0-12.0) Seconds INR (0.9-1.1) APTT (21.0-31.0) Seconds PTT Ratio POC Sodium (135-144) mmol/L Sodium (136-145) mmol/L POC Potassium (3.3-5.0) mmol/L Potassium 4.1 POC Chloride (101-112) mmol/L Chloride (98-107) mmol/L Carbon Dioxide (21-32) mmol/L POC Total CO2 (24-31) mmol/L Anion Gap (3-11) POC Anion Gap (16-25) mmol/L POC BUN (7-18) mg/dl BUN (6-23) mg/dl Creatinine (0.6-1.2) mg/dl POC Creatinine (0.6-1.3) mg/dl Est Cr Clr Drug Dosing ml/min Est GFR ( Amer) ml/min Est GFR (Non-Af Amer) ml/min BUN/Creatinine Ratio (10-20) Glucose (70-99(Fasting)) mg/dl POC Glucose (70-99) mg/dl POC Glucose (other) (70-99) mg/dl Lactate (0.4-2.0) mmol/L Calcium (8.5-10.1) mg/dl POC Ioniz Calcium Jerald (1.12-1.32) mmol/l Magnesium (1.7-2.4) mg/dl Total Bilirubin (0.2-1.0) mg/dl AST 65 H ALT (7-52) U/L Alkaline Phosphatase (34-104) U/L Ammonia 43.0 (18-72) umol/L Troponin I High Sens (0-14) pg/ml Total Protein (6.0-8.3) gm/dl Albumin (3.4-5.0) gm/dl Globulin (2.5-4.0) gm/dl Albumin/Globulin Ratio (0.9-2) Procalcitonin (0-0.5) ng/ml SARS-CoV-2 (PCR) NEGATIVE (Negative) Influenza Type A (PCR) Negative (Neg) Influenza Type B (PCR) Negative (Neg) RSV (RT-PCR) Negative (Neg) 05/26/22 Range/Units 19:12 WBC (4.8-10.8) K/ul RBC (3.93-5.22) M/uL Hgb (12.0-16.0) g/dl POC Hgb (12.0-16.0) g/dl Hct (34.1-44.9) % POC Hct (37-47) % MCV (80.0-100.0) fL MCH (25.0-34.0) pg MCHC (32.0-36.0) g/dL RDW Std Deviation (36.4-46.3) fL RDW Coeff of Polina (11.5-14.5) % Plt Count (130-400) K/uL Absolute Nucleated RBC (0-0) K/uL Nucleated RBC % (auto) % Neutrophils % (Manual) % Lymphocytes % (Manual) % Reactive Lymphs % (Man) % Monocytes % (Manual) % Eosinophils % (Manual) % Basophils % (Manual) % Metamyelocytes % (Man) % Myelocytes % (Man) % Promyelocytes % (Man) % Blast Cells % (Manual) % Neutrophils # (Manual) (1.4-6.5) K/uL Total Absolute Neuts (1.4-6.5) K/uL Lymphocytes # (Manual) (1.2-3.4) K/uL Reactive Lymphs # K/uL Total Abs Lymphocytes (1.2-3.4) K/uL Monocytes # (Manual) (0.24-0.82) K/uL Eosinophils # (Manual) (0-0.50) K/uL Basophils # (Manual) (0-0.2) K/uL Metamyelocytes # (Man) (0-0) K/uL Myelocytes # (Manual) (0-0) K/uL Promyelocytes # (Man) (0-0) K/uL Blast Cells # (Man) (0-0) K/uL Polychromasia Poikilocytosis Tear Drop Cells Echinocytes Schistocytes PT (9.0-12.0) Seconds INR (0.9-1.1) APTT (21.0-31.0) Seconds PTT Ratio POC Sodium (135-144) mmol/L Sodium (136-145) mmol/L POC Potassium (3.3-5.0) mmol/L Potassium POC Chloride (101-112) mmol/L Chloride (98-107) mmol/L Carbon Dioxide (21-32) mmol/L POC Total CO2 (24-31) mmol/L Anion Gap (3-11) POC Anion Gap (16-25) mmol/L POC BUN (7-18) mg/dl BUN (6-23) mg/dl Creatinine (0.6-1.2) mg/dl POC Creatinine (0.6-1.3) mg/dl Est Cr Clr Drug Dosing ml/min Est GFR ( Amer) ml/min Est GFR (Non-Af Amer) ml/min BUN/Creatinine Ratio (10-20) Glucose (70-99(Fasting)) mg/dl POC Glucose 93 (70-99) mg/dl POC Glucose (other) (70-99) mg/dl Lactate (0.4-2.0) mmol/L Calcium (8.5-10.1) mg/dl POC Ioniz Calcium Jerald (1.12-1.32) mmol/l Magnesium (1.7-2.4) mg/dl Total Bilirubin (0.2-1.0) mg/dl AST ALT (7-52) U/L Alkaline Phosphatase (34-104) U/L Ammonia (18-72) umol/L Troponin I High Sens (0-14) pg/ml Total Protein (6.0-8.3) gm/dl Albumin (3.4-5.0) gm/dl Globulin (2.5-4.0) gm/dl Albumin/Globulin Ratio (0.9-2) Procalcitonin (0-0.5) ng/ml SARS-CoV-2 (PCR) (Negative) Influenza Type A (PCR) (Neg) Influenza Type B (PCR) (Neg) RSV (RT-PCR) (Neg) Imaging Data Radiologist's Impression: Abdomen/Pelvis CT 05/26/22 16:10 CT OF THE ABDOMEN AND PELVIS WITH CONTRAST CLINICAL HISTORY: Abdominal pain. Diarrhea. History of myeloproliferative disorder. COMPARISON STUDY: CT of the abdomen and pelvis September 18, 2021. TECHNIQUE: Following IV administration of 93 mL of Optiray, axial images of the abdomen and pelvis were obtained from the lung bases to the proximal femurs. Images were reviewed in the axial, sagittal, and coronal planes. IV contrast was administered without complication. Automated exposure control was utilized for the study. A dose lowering technique was utilized adhering to the principles of ALARA. CT DOSE: 309.66 mGy.cm FINDINGS: Cardiomegaly is noted. There is a small right pleural effusion. Interlobular septal thickening is noted within the lower lungs. Patchy groundglass opacities within the right lower lobe are similar to prior exams. A 6 mm right middle lobe nodule on image 6 of 446 has minimal adjacent groundglass opacity. This is new since prior CT of September 18, 2021. A small amount of abdominal and pelvic ascites is noted. No pneumatosis, free air or portal venous gas is present. The liver is cirrhotic. Right hepatic lobe atrophy with lateral segment enlargement is noted. Sensitivity for detection of hypervascular lesions is diminished on this portal venous phase study. There is a small amount of nonocclusive thrombus within the proximal left portal vein. This is new since prior CT. The main portal vein is patent. Marked splenomegaly is again noted with large abdominal and pelvic varices. There is no evidence for a bowel obstru ction. There are gallstones within the gallbladder. Gallbladder wall thickening is a nonspecific finding in the setting of cirrhosis. The adrenal glands and kidneys are unremarkable with the exception of mild left and moderate right renal atrophy. Is no hydronephrosis. Diffuse sclerosis within visualized skeletal structures is similar to prior exams. IMPRESSION: 1. Small amount of nonocclusive thrombus within the proximal left portal vein, new since prior CT of September 18, 2021. 2. Cirrhotic liver. Stable marked splenomegaly and extensive varices formation. Small amount of abdominal and pelvic ascites. 3. No bowel obstruction. 4. 6 mm right middle lobe nodule. Given minimal adjacent ground glass opacity, this could be inflammatory. A chest CT in 3 months to ensure resolution is recommended. 5. Cholelithiasis. Gallbladder wall thickening, a nonspecific finding the setting of cirrhosis. Gallbladder not distended. 6. No change in diffuse sclerosis of visualized skeletal structures. Although nonspecific, this is likely related to the history of myeloproliferative disorder. ACT 112: Negative or not required by law. Electronically signed by: Erickson Alfonso M.D. 05/26/2022 6:35 PM Chest X-Ray 05/26/22 16:10 XR chest 1V portable CLINICAL HISTORY: SEPSIS COMPARISON STUDY: Chest CT September 18, 2021. Chest radiograph September 19, 2021. FINDINGS: Lung volumes are normal. No pneumothorax or pleural effusion is present. Right apical density is similar to earlier exams and favors scarring. Multifocal opacities shown on CT of September 18, 2021 have improved. Cardiomegaly is unchanged. Mild interstitial thickening is noted. Diffuse incr eased sclerosis of the visualized skeletal structures is better depicted on prior CT. IMPRESSION: 1. No acute cardiopulmonary findings. 2. Stable cardiomegaly and interstitial thickening which is likely chronic. Right upper lobe opacity which is unchanged and favor scarring. ACT 112: Negative or not required by law. Electronically signed by: Erickson Alfonso M.D. 05/26/2022 5:00 PM ECG Data Attestation: I personally reviewed and interpreted this ECG as follows: Additional Comments: Twelve-lead EKG: Per my interpretation shows normal sinus rhythm at a rate of 68. No ST elevation. No PVCs. Normal QTC MDM Narrative 66-year-old female presents with generalized weakness and hypotension for EMS. They provided 2 L normal saline in route here. The initial blood pressure was 145 systolic. The patient's exam reveals some mild diffuse abdominal tenderness worse in the lower abdomen. Her lungs are clear. The patient had i-STAT labs performed upon arrival. Her chemistry panel was unremarkable. Glucose was 67. BUN was 33 and creatinine is 1.6. Hemoglobin is 13.6. Twelve-lead EKG shows a normal sinus rhythm at a rate of 68. According to the nurse, the patient vomited shortly after she arrived after we sat her up. She vomited up food. There is no blood. The patient's color significantly improved after this. White blood cell count was elevated at 39.56. INR is 1.9. The patient is chronically on rivaroxaban. BUN is 26 and creatinine is 1.5. Lactic acid was 1.7. Chest x-ray was negative for acute disease. Troponin was mildly elevated at 41. Procalcitonin was negative. Ammonia level was normal. CT scan of the abdomen pelvis was performed. No stone or acute abnormality other than what appears to be chronic or subacute issues. Nothing that appears to be likely related to her symptoms. The patient was treated with IV fluids and IV Zofran. She is given some IV Tylenol and empiric antibiotics. She will be seen by the hospitalist for further evaluation and care. Impression & Plan Generalized weakness, Acute hypotension, Diarrhea, Vomiting, Leukocytosis Discharge Plan Visit Data Chief Complaint: Syncope ED Provider: [facility] Discharge Problem: Generalized weakness, Acute hypotension, Diarrhea, Vomiting, Leukocytosis Patient Disposition: Being Evaluated by Hospitalist Forms Stand Alone Forms: [facility] Prescriptions Prescriptions: No Action Xarelto 10 mg tablet 10 mg PO QPM Qty: 90 1RF spironolactone 50 mg tablet 50 mg PO DAILY Qty: 30 5RF 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 40 mg tablet,delayed release (DR/EC) 40 mg PO BID Qty: 180 1RF lactulose 20 gram/30 mL solution 20 g PO DAILY Qty: 1200 0RF citalopram [Celexa] 20 mg tablet 30 mg PO HS Qty: 135 1RF furosemide 20 mg tablet 40 mg PO DAILY Qty: 60 3RF propranolol 10 mg tablet 10 mg PO TID Qty: 270 1RF Jakafi 10 mg tablet 10 mg PO BID cholecalciferol (vitamin D3) [Vitamin D3] 2,000 unit Capsule 2,000 unit PO HS Referrals Referrals: Shira Yarbrough MD [Primary Care Provider] -
[2022-05-26 16:24] LABS: iSTAT Creatinine 1.6 mg/dl (0.6-1.3); iSTAT Hemoglobin 13.6 g/dl (12.0-16.0); iSTAT Ionized Calcium 1.11 mmol/l (1.12-1.32); iSTAT Potassium 4.6 mmol/L (3.3-5.0)
[2022-05-26 16:39] LABS: INR 1.9 (0.9-1.1); Partial Thromboplastin Ratio 1.4; Partial Thromboplastin Time 39.7 Seconds (21.0-31.0); Prothrombin Time 19.9 Seconds (9.0-12.0)
[2022-05-26 16:48] LABS: Alanine Aminotransferase 32 U/L (7-52); Albumin Globulin Ratio 2.1 (0.9-2); Albumin Level 3.5 gm/dl (3.4-5.0); Alkaline Phosphatase 207 U/L (34-104); Anion Gap 4 (3-11); BUN Creatinine Ratio 16.8 (10-20); Bilirubin,Total 1.8 mg/dl (0.2-1.0); Blood Urea Nitrogen 26 mg/dl (6-23); Calcium 7.4 mg/dl (8.5-10.1); Carbon Dioxide 21 mmol/L (21-32); Chloride 116 mmol/L (98-107); Creatinine Clr Calc Pharmacy 33.1 ml/min; Est GFR (African American) 40.6 ml/min; Globulin 1.7 gm/dl (2.5-4.0); Glucose 63 mg/dl (70-99(Fasting)); Magnesium 1.7 mg/dl (1.7-2.4); Sodium 141 mmol/L (136-145); Total Protein 5.2 gm/dl (6.0-8.3)
[2022-05-26 16:49] LABS: Hemoglobin 12.4 g/dl (12.0-16.0); Mean Corpuscular Hemoglobin 25.6 pg (25.0-34.0); Mean Corpuscular Hgb Conc 29.5 g/dL (32.0-36.0); Mean Corpuscular Volume 86.8 fL (80.0-100.0); Nucleated RBC # (auto) 10.63 K/uL (0-0); Nucleated RBC % (auto) 26.9 %; Platelet Count 466 K/uL (130-400); RDW Coefficient of Variation 18.8 % (11.5-14.5); RDW Standard Deviation 55.6 fL (36.4-46.3); Red Blood Count 4.84 M/uL (3.93-5.22); White Blood Count 39.56 K/ul (4.8-10.8)
[2022-05-26 16:54] LABS: Troponin I High Sensitivity 41.9 pg/ml (0-14)
[2022-05-26] MEDS ORDERED: ACETAMINOPHEN 1,000 MG/100 ML VIAL IV STA (16:58)
--- NOTE | 2022-05-26 17:02 | XRay Report ---
XR chest 1V portable CLINICAL HISTORY: SEPSIS COMPARISON STUDY: Chest CT September 18, 2021. Chest radiograph September 19, 2021. FINDINGS: Lung volumes are normal. No pneumothorax or pleural effusion is present. Right apical densi ty is similar to earlier exams and favors scarring. Multifocal opacities shown on CT of September 18, 2021 have improved. Cardiomegaly is unchanged. Mild interstitial thickening is noted. Diffuse increas ed sclerosis of the visualized skeletal structures is better depicted on prior CT. IMPRESSION: 1. No acute cardiopulmonary findings. 2. Stable cardiomegaly and interstitial thickening which is likely chronic. Right upper lobe opacity which is unchanged and favor scarring. ACT 112: Negative or not required by law. Electronically signed by: Erickson Alfonso M.D. 05/26/2022 5:00 PM
[2022-05-26 17:09] LABS: ALC (manual) 9.89 K/uL (1.2-3.4); ANC (manual) 13.45 K/uL (1.4-6.5); Basophils # (manual) 3.16 K/uL (0-0.2); Basophils % (manual) 8 %; Blast # (manual) 1.19 K/uL (0-0); Blast Cells % (manual) 3 %; Echinocytes 1+; Eosinophils # (manual) 1.19 K/uL (0-0.50); Eosinophils % (manual) 3 %; Lymphocytes # (manual) 7.91 K/uL (1.2-3.4); Lymphocytes % (manual) 20 %; Metamyelocytes # (manual) 5.54 K/uL (0-0); Metamyelocytes % (manual) 14 %; Monocytes # (manual) 1.19 K/uL (0.24-0.82); Monocytes % (manual) 3 %; Myelocytes # (manual) 3.16 K/uL (0-0); Myelocytes % (manual) 8 %; Neutrophils # (manual) 13.45 K/uL (1.4-6.5); Neutrophils % (manual) 34 %; Poikilocytosis Present; Polychromasia 1+; Promyelocytes # (manual) 1.19 K/uL (0-0); Promyelocytes % (manual) 3 %; Reactive Lymphocytes # (manual) 1.98 K/uL; Reactive Lymphocytes % (manual) 5 %; Schistocytes 1+; Tear Drop Cells 2+
[2022-05-26 17:53] LABS: Potassium 4.1 mmol/L (3.5-5.1)
[2022-05-26] MEDS ORDERED: OPTIRAY 300 100mL IV ONE (18:12)
[2022-05-26 18:18] LABS: Influenza A virus by PCR Negative (Neg); Influenza B virus by PCR Negative (Neg); RSV by PCR Negative (Neg); SARS CoV2 RNA(COVID-19) InHosp NEGATIVE (Negative)
--- NOTE | 2022-05-26 18:38 | CT Scan Report ---
CT OF THE ABDOMEN AND PELVIS WITH CONTRAST CLINICAL HISTORY: Abdominal pain. Diarrhea. History of myeloproliferative disorder. COMPARISON STUDY: CT of the abdomen and pelvis September 18, 2021. TECHNIQUE: Following IV administration of 93 mL of Optiray, axial images of the abdomen and pelvis we re obtained from the lung bases to the proximal femurs. Images were reviewed in the axial, sagittal, and coronal planes. IV contrast was administered without complication. Automated exposure control wa s utilized for the study. A dose lowering technique was utilized adhering to the principles of ALARA . CT DOSE: 309.66 mGy.cm FINDINGS: Cardiomegaly is noted. There is a small right pleural effusion. Interlobular septal thicken ing is noted within the lower lungs. Patchy groundglass opacities within the right lower lobe are sim ilar to prior exams. A 6 mm right middle lobe nodule on image 6 of 446 has minimal adjacent groundgla ss opacity. This is new since prior CT of September 18, 2021. A small amount of abdominal and pelvic a scites is noted. No pneumatosis, free air or portal venous gas is present. The liver is cirrhotic. Ri ght hepatic lobe atrophy with lateral segment enlargement is noted. Sensitivity for detection of hype rvascular lesions is diminished on this portal venous phase study. There is a small amount of nonoccl usive thrombus within the proximal left portal vein. This is new since prior CT. The main portal vein is patent. Marked splenomegaly is again noted with large abdominal and pelvic varices. There is no e vidence for a bowel obstruction. There are gallstones within the gallbladder. Gallbladder wall thicke carli is a nonspecific finding in the setting of cirrhosis. The adrenal glands and kidneys are unremar kable with the exception of mild left and moderate right renal atrophy. Is no hydronephrosis. Diffuse sclerosis within visualized skeletal structures is similar to prior exams. IMPRESSION: 1. Small amount of nonocclusive thrombus within the proximal left portal vein, new since prior CT of September 18, 2021. 2. Cirrhotic liver. Stable marked splenomegaly and extensive varices formation. Small amount of abdom inal and pelvic ascites. 3. No bowel obstruction. 4. 6 mm right middle lobe nodule. Given minimal adjacent ground glass opacity, this could be inflamma tory. A chest CT in 3 months to ensure resolution is recommended. 5. Cholelithiasis. Gallbladder wall thickening, a nonspecific finding the setting of cirrhosis. Gallb ladder not distended. 6. No change in diffuse sclerosis of visualized skeletal structures. Although nonspecific, this is latrell snow related to the history of myeloproliferative disorder. ACT 112: Negative or not required by law. Electronically signed by: Erickson Alfonso M.D. 05/26/2022 6:35 PM
--- NOTE | 2022-05-26 19:50 | History & Physical Report ---
Date of Service May 26, 2022 Assessment & Plan (1) Leukocytosis: Plan: -Admit to PCU -Patient is currently afebrile, hemodynamically stable, and stable on 2L NC -Patient has a history of myelodysplastic syndrome but her cell lines normally run low -Patient is followed outpatient with hematology and has been on Jakafi -At this time infection cannot be ruled out, did not appear to have a respiratory source on presentation and has a negative procal, but patient may have aspirated with her multiple episodes of vomiting in the ED, no urinary symptoms, SBP is always a concern but the patient only has a small amount of ascites on CT, need to rule out GI sources to be safe. -Large infectious workup already started including blood cultures, UA with reflex, MRSA swab, and stool studies -Patient received a total of 3L NSS between EMS and the ED treatment, currently with stable BP, hold additional IV fluids for now -Lactate WNL -Was given 1 dose of Cefepime in the ED, will continue q8h for now to cover for SBP and possible pneumonia, FU with MRSA swab to see if we need to extend coverage -If needed, can get paracentesis tomorrow -AM CBC, CMP, PT/INR (2) Confusion: Plan: -Resolved -Likely related to her hypoglycemia on arrival to the ED -Patient's blood glucose now WNL, currently CAOx3 and no focal neuro defects -No signs of hepatic encephalopathy -Continue to monitor for now (3) Vomiting: Plan: -Unsure of the exact etiology at this time, nausea and vomiting has resolved for now, continue to monitor (4) Hypoxia: Plan: -Patient was on 3L NC upon the start of my exam, no history of COPD and not on O2 at baseline -Lungs were clear on exam and CXR also clear -Possibly related to low lung volumes from her distended abdomen -Cannot rule out aspiration event with her multiple episodes of vomiting since arrival -Will wean O2 as able -Monitor volume status as she received 3L NSS between her EMS transport and time in the ED -Follow-up with MRSA swab and consider extending antibiotic coverage if possible and concerned for pneumonia (5) Portal vein thrombosis: Plan: -Small portal vein thrombus noted on CTA today which was not seen on previous CT in august 2021 -Patient has not been taking her Xarelto as prescribed due to easy bruising so not considered failed therapy -Consulted hematology for assistance with anticoagulation moving forward (6) Cirrhosis: Plan: -Does not appear to be in acute liver failure or hepatic encephalopathy -Was taken off Spironolactone and Lactulose previously -Hold JOB [employer] lasix for now with possible sepsis and recent hypotension (7) Hypoglycemia: Plan: -Resolved -No history of DM and not on antihyperglycemics -Will monitor fingerstick BSG q6h for now to be safe (8) Right middle lobe pulmonary nodule: Plan: -6 mm right middle lobe nodule noted on CTA today -Recommended to get repeat CT chest in 3 months to monitor for resolution (9) Dyslipidemia: Plan: -Not currently on a statin (10) Pulmonary emboli: Plan: -Normally on Xarelto, but only taking her Xarelto 3 times weekly because of easy bruising and bleeding -Continue Xarelto for now -Hematology consult placed for assistance (11) Protein S deficiency: Plan: -See pulmonary emboli (12) Esophageal varices: Plan: -No signs of active bleeding, continue to momitor (13) Chronic diarrhea: Plan: -Follow-up with stool studies, hold antidiarrheals for now with hx of hepatic encephalopathy and current infectious workup (14) Reflux esophagitis: Plan: -JOB PRINTER 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 (15) Elevated troponin: Plan: -Noted to be at 49 on initial ED labs -No chest pain or concerning EKG findings -Shaquille repeat another troponin now Plan The patient was discussed with Dr. Ndiaye at the time of admission History of Present Illness Chief Complaint: Syncope Primary Care Provider: Shira Yarbrough MD Belg[place] is a 66 year old female with a PMH significant for Cirrhosis with portal hypertension/splenomegaly/gastric varices/ascites/hepatic encephalopathy on the transplant list in [facility], myelodysplastic syndrome, previous PE on Xarelto, bradycardic cardiac arrest and GERD who presented to the [facility] ED on 05/26/22 with a chief complaint of syncope. Per EMS, the patient was noted to be hypotensive with systolic BP in the 80's, they gave her 2L NSS prior to arrival. She was noted to have a significant Leukocytosis of 39.56, with left shift of 10.63, thrombocytosis of 466, elevated WBC lines, hypernatremia of 145, Cr of 1.55, glucose of 63, calcium of 7.4, total bili of 1.8, AST of 65, alk phos of 207, troponin of 41.9. Chest xray was negative for acute findings. CT of the abdomen/pelvis with IV contrast showed a small amount of nonocclusive thrombus within the proximal left portal vein new from Aug 2021, Cirrhotic liver with stable splenomegaly and varices, a small amount of abdominal and pelvic ascites, a 6mm right middle lobe nodule, cholelithiasis with gallbladder wall thickening but a nondistended gallbladder, In the ED the patient was given tylenol, 1L NSS, cefepime, and zofran. At the time of the exam the patient was resting in bed in no acute distress. She states that she was feeling ill and somewhat confused this am so she called EMS. She states that she does not remember calling EMS however and her was out golfing so she was by herself. She states that she has been dealing with chronic lower abdominal pain and diarrhea for the past year. She has approximately 10-15 episodes of diarrhea with mucus daily but denies bloody bowel movements and melena. She does note some blood on the toilet paper when she wipes but again confirmed that she does not see blood in her stool or the toilet bowel. She states that she has only been taking her Xarelto three times weekly because she bleeds too easily if she takes it daily as it was prescribed. She was following with Dr. Vergara in hematology here prior to him leaving approximately 6 months ago; he was the one who started her on Jakafi for her myelodysplastic syndrome. She had one paracentesis in the past and it was approximately 6 months ago in the [facility] ED. She states she was taken off of her JOB PRINTER lactulose previously because of her chronic diarrhea. In the ED the patient vomited multiple times and she is unsure if she chocked or aspirated during these episodes. She does feeling her symptoms have improved compared to when she arrived to the ED. She denies recent fevers or chills, headache, changes in vision, hearing, taste, and smell, chest pain, SOB, new abdominal pain, dysuria, hematuria, urianry frequency, increased LE swelling, and recent falls. Per chart review, the patient was admitted to [facility] in August 2021 with upper GI bleed. She was monitored and her Hgb was noted to be stable, GI did not feel that an EGD was needed at that time. Allergies Allergy/AdvReac Type Severity Reaction Status Date / Time No Known Allergies Allergy Verified 05/26/22 20:32 Home Medications Medication Instructions Recorded Confirmed Type cholecalciferol (vitamin D3) 50 2,000 unit PO HS 08/30/18 05/26/22 History mcg (2,000 unit) capsule (Vitamin D3) ruxolitinib 10 mg tablet (Jakafi) 10 mg PO BID 05/25/19 05/26/22 History rivaroxaban 10 mg tablet (Xarelto) 10 mg PO QPM #90 tabs 05/02/21 05/26/22 Rx citalopram 20 mg tablet (Celexa) 30 mg PO HS #135 tabs 12/09/21 05/26/22 Rx 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 40 mg tablet,delayed 40 mg PO BID #180 tabs 12/09/21 05/26/22 Rx release propranolol 10 mg tablet 10 mg PO TID #270 tabs 03/07/22 05/26/22 Rx furosemide 20 mg tablet 40 mg PO QAM 05/26/22 05/26/22 History Past Med/Surg History Medical History Anticoagulant long-term use Anxiety Cirrhosis Depression Erythromelalgia Esophageal varices hx banding 2 years ago Hepatomegaly Herpes simplex History of blood clots neck, liver > 20 years ago History of DVT (deep vein thrombosis) RLE - > 20 years ago History of gastrointestinal hemorrhage History of pulmonary embolism > 20 years ago Inflammatory polyarthritis Lung nodule seen on imaging study Myelodysplastic disease follows with Dr. Vergara On anticoagulant therapy Osteopenia determined by x-ray Portal hypertension Splenomegaly Upper GI bleed hx Surgical History H/O shoulder surgery Dr. Cornejo for left shoulder manipulation hx History of bone marrow biopsy History of colonoscopy History of esophagogastroduodenoscopy (EGD) most recent 12/25/20 [place] History of liver biopsy History of tubal ligation Family History Father , age 44 Heart disease Myocardial infarction Mother Hypertension Sister Coronary heart disease Mood disorder Sister Mood disorder Sister Mood disorder Sister Mood disorder Sister Mood disorder Sister Mood disorder Sister Mood disorder Brother Alcohol abuse Son , age 26 MVA (motor vehicle accident) Grandmother (Maternal) Breast cancer Aunt Breast cancer Other No family history of adverse response to anesthesia Denies family history of Ovarian cancer Prostate cancer Colorectal cancer Social History Smoking Status: Never smoker Second Hand Exposure: No; Hx Alcohol Use: No Hx Substance Use: No Preferred Language: Kuwaiti Communication Ability: Effective Visual Impairment: No Limitations Hearing Ability: Normal 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 All systems have been reviewed and are otherwise negative. Physical Exam Physical Exam: Physical Exam: General: In no acute distress, stated age, malnourished, chronically ill- appearing HEENT: Normocephalic, atraumatic, no scleral icterus, pupils around round, symmetrical, and reactive to light, moist mucus membranes, trachea midline, no thyromegaly Chest/Pulm: No respiratory distress, symmetrical chest expansion, clear breath sounds throughout Cardiac: RRR, no murmurs noted Abdomen: distended, positive for caput medusae, small bruise noted in the lower right abdomen, normoactive bowel sounds, tympanic to percussion without peritoneal pain, soft, mildly firm and tender to palpation in the RUQ and lower abdomen Musculoskeletal: Symmetrical and without signs of acute trauma, upper and lower extremities with full ROM, no atrophy, spasticity, or flaccidity Extremities: Radial, dorsalis pedis, and posterior tibial pulses are intact and symmetrical, no edema noted in the BL LE's Skin: Warm, dry, no rashes , lesions, or scars noted Neuro: Alert and oriented to person, place, month, year, and president, no focal defects, CN II-XII tested and intact, finger to nose test negative, no tremors noted Psych: No acute distress, calm and cooperative during the exam Results & Data Results & Data ([facility]) Vital Signs (Past 12 Hours) Vital Signs Temp Pulse Pulse Resp BP BP Pulse Ox 05/26/22 19:10 70 16 90/53 L 95 05/26/22 17:45 69 16 101/57 L 98 05/26/22 17:30 69 20 113/60 98 05/26/22 17:15 70 22 107/64 98 05/26/22 17:00 72 26 H 125/71 99 05/26/22 16:45 71 22 111/58 L 90 05/26/22 16:32 69 24 111/45 L 95 05/26/22 16:21 68 24 119/78 93 05/26/22 18:23 98 05/26/22 17:00 98 05/26/22 16:18 36.5 C 70 24 119/78 94 O2 Del Method O2 Flow Rate 05/26/22 19:10 Room Air 05/26/22 17:45 Nasal Cannula 2 05/26/22 17:30 Nasal Cannula 2 05/26/22 17:15 Nasal Cannula 2 05/26/22 17:00 Nasal Cannula 2 05/26/22 16:45 Room Air 05/26/22 16:32 Room Air 05/26/22 16:21 Room Air 05/26/22 18:23 Nasal Cannula 2 05/26/22 17:00 Nasal Cannula 2 05/26/22 16:18 Room Air Laboratory Results Abnormal lab results 05/26/22 05/26/22 05/26/22 Range/Units 16:07 16:07 16:07 WBC 39.56 H* (4.8-10.8) K/ul MCHC 29.5 L (32.0-36.0) g/dL RDW Std Deviation 55.6 H (36.4-46.3) fL RDW Coeff of Polina 18.8 H (11.5-14.5) % Plt Count 466 H (130-400) K/uL Absolute Nucleated RBC 10.63 H (0-0) K/uL Neutrophils # (Manual) 13.45 H (1.4-6.5) K/uL Total Absolute Neuts 13.45 H (1.4-6.5) K/uL Lymphocytes # (Manual) 7.91 H (1.2-3.4) K/uL Total Abs Lymphocytes 9.89 H (1.2-3.4) K/uL Monocytes # (Manual) 1.19 H (0.24-0.82) K/uL Eosinophils # (Manual) 1.19 H (0-0.50) K/uL Basophils # (Manual) 3.16 H (0-0.2) K/uL Metamyelocytes # (Man) 5.54 H (0-0) K/uL Myelocytes # (Manual) 3.16 H (0-0) K/uL Promyelocytes # (Man) 1.19 H (0-0) K/uL Blast Cells # (Man) 1.19 H (0-0) K/uL PT 19.9 H (9.0-12.0) Seconds INR 1.9 H (0.9-1.1) APTT 39.7 H (21.0-31.0) Seconds POC Sodium (135-144) mmol/L POC Chloride (101-112) mmol/L Chloride 116 H (98-107) mmol/L POC Total CO2 (24-31) mmol/L POC Anion Gap (16-25) mmol/L POC BUN (7-18) mg/dl BUN 26 H (6-23) mg/dl Creatinine 1.55 H (0.6-1.2) mg/dl POC Creatinine (0.6-1.3) mg/dl Glucose 63 L (70-99(Fasting)) mg/dl POC Glucose (other) (70-99) mg/dl Calcium 7.4 L (8.5-10.1) mg/dl POC Ioniz Calcium Jerald (1.12-1.32) mmol/l Total Bilirubin 1.8 H (0.2-1.0) mg/dl AST (13-39) U/L Alkaline Phosphatase 207 H (34-104) U/L Troponin I High Sens 41.9 H (0-14) pg/ml Total Protein 5.2 L (6.0-8.3) gm/dl Globulin 1.7 L (2.5-4.0) gm/dl Albumin/Globulin Ratio 2.1 H (0.9-2) 05/26/22 05/26/22 Range/Units 16:12 17:15 WBC (4.8-10.8) K/ul MCHC (32.0-36.0) g/dL RDW Std Deviation (36.4-46.3) fL RDW Coeff of Polina (11.5-14.5) % Plt Count (130-400) K/uL Absolute Nucleated RBC (0-0) K/uL Neutrophils # (Manual) (1.4-6.5) K/uL Total Absolute Neuts (1.4-6.5) K/uL Lymphocytes # (Manual) (1.2-3.4) K/uL Total Abs Lymphocytes (1.2-3.4) K/uL Monocytes # (Manual) (0.24-0.82) K/uL Eosinophils # (Manual) (0-0.50) K/uL Basophils # (Manual) (0-0.2) K/uL Metamyelocytes # (Man) (0-0) K/uL Myelocytes # (Manual) (0-0) K/uL Promyelocytes # (Man) (0-0) K/uL Blast Cells # (Man) (0-0) K/uL PT (9.0-12.0) Seconds INR (0.9-1.1) APTT (21.0-31.0) Seconds POC Sodium 145 H (135-144) mmol/L POC Chloride 114 H (101-112) mmol/L Chloride (98-107) mmol/L POC Total CO2 21 L (24-31) mmol/L POC Anion Gap 15.0 L (16-25) mmol/L POC BUN 33 H (7-18) mg/dl BUN (6-23) mg/dl Creatinine (0.6-1.2) mg/dl POC Creatinine 1.6 H (0.6-1.3) mg/dl Glucose (70-99(Fasting)) mg/dl POC Glucose (other) 67 L* (70-99) mg/dl Calcium (8.5-10.1) mg/dl POC Ioniz Calcium Jerald 1.11 L (1.12-1.32) mmol/l Total Bilirubin (0.2-1.0) mg/dl AST 65 H (13-39) U/L Alkaline Phosphatase (34-104) U/L Troponin I High Sens (0-14) pg/ml Total Protein (6.0-8.3) gm/dl Globulin (2.5-4.0) gm/dl Albumin/Globulin Ratio (0.9-2) Diagnostic Findings Abdomen/Pelvis CT 05/26/22 16:10 CT OF THE ABDOMEN AND PELVIS WITH CONTRAST CLINICAL HISTORY: Abdominal pain. Diarrhea. History of myeloproliferative disorder. COMPARISON STUDY: CT of the abdomen and pelvis September 18, 2021. TECHNIQUE: Following IV administration of 93 mL of Optiray, axial images of the abdomen and pelvis were obtained from the lung bases to the proximal femurs. Images were reviewed in the axial, sagittal, and coronal planes. IV contrast was administered without complication. Automated exposure control was utilized for the study. A dose lowering technique was utilized adhering to the principles of ALARA. CT DOSE: 309.66 mGy.cm FINDINGS: Cardiomegaly is noted. There is a small right pleural effusion. Interlobular septal thickening is noted within the lower lungs. Patchy groundglass opacities within the right lower lobe are similar to prior exams. A 6 mm right middle lobe nodule on image 6 of 446 has minimal adjacent groundglass opacity. This is new since prior CT of September 18, 2021. A small amount of abdominal and pelvic ascites is noted. No pneumatosis, free air or portal venous gas is present. The liver is cirrhotic. Right hepatic lobe atrophy with lateral segment enlargement is noted. Sensitivity for detection of hypervascular lesions is diminished on this portal venous phase study. There is a small amount of nonocclusive thrombus within the proximal left portal vein. This is new since prior CT. The main portal vein is patent. Marked splenomegaly is again noted with large abdominal and pelvic varices. There is no evidence for a bowel obstruction. There are gallstones within the gallbladder. Gallbladder wall thickening is a nonspecific finding in the setting of cirrhosis. The adrenal glands and kidneys are unremarkable with the exception of mild left and moderate right renal atrophy. Is no hydronephrosis. Diffuse sclerosis within visualized skeletal structures is similar to prior exams. IMPRESSION: 1. Small amount of nonocclusive thrombus within the proximal left portal vein, new since prior CT of September 18, 2021. 2. Cirrhotic liver. Stable marked splenomegaly and extensive varices formation. Small amount of abdominal and pelvic ascites. 3. No bowel obstruction. 4. 6 mm right middle lobe nodule. Given minimal adjacent ground glass opacity, this could be inflammatory. A chest CT in 3 months to ensure resolution is recommended. 5. Cholelithiasis. Gallbladder wall thickening, a nonspecific finding the setting of cirrhosis. Gallbladder not distended. 6. No change in diffuse sclerosis of visualized skeletal structures. Although nonspecific, this is likely related to the history of myeloproliferative disorder. ACT 112: Negative or not required by law. Electronically signed by: Erickson Alfonso M.D. 05/26/2022 6:35 PM Chest X-Ray 05/26/22 16:10 XR chest 1V portable CLINICAL HISTORY: SEPSIS COMPARISON STUDY: Chest CT September 18, 2021. Chest radiograph September 19, 2021. FINDINGS: Lung volumes are normal. No pneumothorax or pleural effusion is present. Right apical density is similar to earlier exams and favors scarring. Multifocal opacities shown on CT of September 18, 2021 have improved. Cardiomegaly is unchanged. Mild interstitial thickening is noted. Diffuse increased sclerosis of the visualized skeletal structures is better depicted on prior CT. IMPRESSION: 1. No acute cardiopulmonary findings. 2. Stable cardiomegaly and interstitial thickening which is likely chronic. Right upper lobe opacity which is unchanged and favor scarring. ACT 112: Negative or not required by law. Electronically signed by: Erickson Alfonso M.D. 05/26/2022 5:00 PM ECG Additional Comments: Poor data quality, interpretation may be adversely affected Normal sinus rhythm Possible Right ventricular hypertrophy Abnormal ECG When compared with ECG of 20-SEP-2021 09:55, T wave inversion no longer evident in Inferior leads QT has lengthened Code Status & VTE Plan Code Status Limited code; patient would only want intubation in the case of respiratory failure, she does NOT want CPR VTE Prophylaxis Plan VTE Prophylaxis will be ordered: Yes Supervising Physician Co-Signing Physician Notes Patient seen and examined, chart reviewed, case discussed with TAN Ortiz and I agree with the assessment and plan as above. In brief, patient is a 66yo female with history of lier cirrhosis with portal hypertension, splenomegaly, gastric and esophageal varices and abdominal ascites s/p paracentesis appx 1 year ago. Also with history of MDS for which she follows with hematology and is on Ruxolitinib. Prior DVT/PE on Xarelto anticoagulation - presently taking only 3x weekly as she reports rectal bleeding, nosebleeds and easy bruising when she takes it daily. Patient presents with complaint of weakness, fatigue, syncope. Also with nausea and vomiting. Chronic diarrhea - 10-15 BMs daily, yellow, slimy, nocturnal episodes as well with incontinence. She takes Immodium twice weekly to help with the symptoms. No change in bowel patterns. Denies cough, chest pain, palpitations, dysuria, rash. On physical exam she is afebrile, BP has improved to 99/57 presently s/p 3L crystalloid. Of note, patient with low baseline BP (90's/50's) Skin - no rash HEENT - MMM, neck supple Heart - +S1/S2, regular, 2/6 ROSY across precordium Lungs - CTA, no rales/rhonchi/wheezing Abd - +BS, soft, tender in LLQ without rebound/guarding/peritoneal signs, +distention, no fluid wave appreciated Ext - warm, well perfused Labs and images reviewed Assessment/Plan - 66yo female with history of cirrhosis with portal hypertension, splenomegaly, gastric and esophageal varices and abdominal ascites presenting with complaints of weakness, fatigue, syncope as well as nausea, vomiting. She denies fever, melena, hematemesis. Has occasional hematochezia after taking her Xarelto Labs as above significant for marked leukocytosis with WBC=39.56, elevated platelets of 466. Normal H/H. Differential with elevation of neutrophils, lymphocytes as well as monocytes, eosinophils, basophils and immature cells. Blast=1.19 Liver values near baseline. INR of 1.9. MELD score = 20 Child Class B Suspect infectious source - ?SBP, ?PNA. Awaiting UA and culture. Patient has been given Cefepime. Will continue. Possible paracentesis in AM Small PVT - patient on Xarelto for history of prior VTE. She has not been taking it daily due to increase in bleeding and bruising. Will continue for now. Appreciate Hematology input Monitor liver status, repeat LFTs in AM Trend troponin Remainder as above PG Care Time/CCT Total # of Minutes Spent Total Time Spent with Patient: Total time spent is greater than 50% in coordination of care (as documented) at patient's floor/unit and/or counseling patient: [place] [address] Initial Inpt Care Lvl 3 Patient Type Established Medical Decision Making High Complexity Diagnoses Leukocytosis D72.829 Confusion R41.0 Vomiting R11.10 Hypoxia R09.02 Portal vein thrombosis I81 Cirrhosis K74.60 Hypoglycemia E16.2 Right middle lobe pulmonary nodule R91.1 Dyslipidemia E78.5 Pulmonary emboli I26.99 Protein S deficiency D68.59 Esophageal varices I85.00 Chronic diarrhea K52.9 Reflux esophagitis K21.0 Elevated troponin R77.8
[2022-05-26] MEDS ORDERED: RIVAROXABAN 10 MG TABLET PO SCH (21:48)
[2022-05-26] MEDS: PROPRANOLOL HCL 10 MG TAB PO SCH (23:02)
[2022-05-26] MEDS: CITALOPRAM 20 MG TAB PO SCH (23:04)
[2022-05-26] MEDS: PANTOprazole 40 MG TAB PO SCH (23:05)
[2022-05-26] MEDS: RIVAROXABAN 10 MG TABLET PO SCH (23:05)
[2022-05-27] MEDS ORDERED: CEFEPIME 2,000 MG in SYRINGE 0 ML IV SCH (04:00)
[2022-05-27 06:30] LABS: INR 1.7 (0.9-1.1); Prothrombin Time 17.9 Seconds (9.0-12.0)
[2022-05-27 06:50] LABS: Troponin I High Sensitivity 118.2 pg/ml (0-14)
[2022-05-27 06:51] LABS: Albumin Globulin Ratio 1.8 (0.9-2); Albumin Level 3.3 gm/dl (3.4-5.0); BUN Creatinine Ratio 16.6 (10-20); Bilirubin,Total 1.2 mg/dl (0.2-1.0); Calcium 7.4 mg/dl (8.5-10.1); Creatinine Clr Calc Pharmacy 20.5 ml/min; Est GFR (African American) 25.3 ml/min; Est GFR (Non-African American) 21.8 ml/min; Globulin 1.8 gm/dl (2.5-4.0); Potassium 3.7 mmol/L (3.5-5.1); Total Protein 5.1 gm/dl (6.0-8.3)
[2022-05-27 06:57] LABS: Partial Thromboplastin Ratio 1.6; Partial Thromboplastin Time 43.2 Seconds (21.0-31.0)
[2022-05-27 07:11] LABS: Hematocrit (blood only) 34.5 % (34.1-44.9); Hemoglobin 10.3 g/dl (12.0-16.0); Mean Corpuscular Hemoglobin 25.3 pg (25.0-34.0); Mean Corpuscular Hgb Conc 29.9 g/dL (32.0-36.0); Mean Corpuscular Volume 84.8 fL (80.0-100.0); Nucleated RBC # (auto) 0.24 K/uL (0-0); Nucleated RBC % (auto) 2.6 %; Platelet Count 150 K/uL (130-400); Platelet Estimate Normal (Normal); RDW Coefficient of Variation 17.3 % (11.5-14.5); RDW Standard Deviation 53.1 fL (36.4-46.3); Red Blood Count 4.07 M/uL (3.93-5.22)
[2022-05-27 07:17] LABS: Appearance Urine Cloudy (Clear); Blood Urine 2+ (Negative); Color Urine Dark Yellow; Glucose Urine UA Negative (Negative); Ketones Urine Trace (Negative); Leukocyte Esterase Urine 1+ (Negative); Nitrite Urine Negative (Negative); Protein Urine 2+ (Negative); Specific Gravity Urine 1.027 (1.000-1.030); Urobilinogen Urine Negative (Negative); WBC Urine Automated >30 /hpf (0-5); pH Urine 5.5 (4.5-7.5)
[2022-05-27 07:18] LABS: Bilirubin Urine 3+ (Negative)
[2022-05-27 07:28] LABS: Bacteria Urine Automated 4+ (Negative)
[2022-05-27 07:29] LABS: Mucus Urine Present (None Prsent)
[2022-05-27] MEDS: PROPRANOLOL HCL 10 MG TAB PO SCH (08:32)
[2022-05-27] MEDS: PANTOprazole 40 MG TAB PO SCH ×2 (08:32→20:45)
--- NOTE | 2022-05-27 11:32 | Electrocardiogram Report ---
Test Reason : Blood Pressure : / mmHG Vent. Rate : 068 BPM Atrial Rate : 068 BPM P-R Int : 166 ms QRS Dur : 088 ms QT Int : 452 ms P-R-T Axes : 083 100 051 degrees QTc Int : 480 ms Poor data quality, interpretation may be adversely affected Normal sinus rhythm Possible Right ventricular hypertrophy Nonspecific ST abnormality Abnormal ECG When compared with ECG of 20-SEP-2021 09:55, T wave inversion no longer evident in Inferior leads QT has lengthened Confirmed by Surjit Paniagua ([id number]) on 05/27/2022 11:31:47 AM Referred By: SELF Confirmed By:Keith Paniagua
--- NOTE | 2022-05-27 12:44 | Hospitalist Progress Note ---
Date of Service May 27, 2022 Assessment & Plan (1) Syncope: Plan: Suspect due to propranolol and lasix use in setting of UTI/diarrhea. Continue to maintain MAP > 65. Hold propranolol. Hold lasix. (2) UTI (urinary tract infection): Plan: Suprapubic pain - although this is not unusual for her. No dysuria, No CVA tenderness. Continue cefepime pending urine and blood cultures (3) RAFIQ (acute kidney injury): Plan: No obstructive cause seen on CT Suspect secondary to hypotensive episode at home and UTI as above Patient appears more hypervolemic than hypovolemic on current exam but limited blood pressure to continue lasix Patient reports good urine output Continue to trend Cr (4) Metabolic acidosis with normal anion gap and bicarbonate losses: Plan: Normal anion gap Suspect due to RAFIQ and diarrhea Start sodium bicarb 650mg PO BID (5) Leukocytosis: Plan: Now resolved Suspect stress reaction to syncope given quick resolution +/- UTI as above Patient without significant abdominal pain except suprapubic, well, appearing, normal procalcitonin, no fever or chills, therefore do not suspect spontaneous bacterial peritonitis. (6) Elevated troponin: Plan: - Suspected demand ischaemia with peak high sensitivity troponin 143 in the absence of chest pain or shortness of breath. - However given syncope will get TTE to assess for wall motion abnormalities. - No chest pain or concerning EKG findings (7) Confusion: Plan: Secondary to hypoglycemia and UTI (8) Vomiting: Plan: -Unsure of the exact etiology at this time, nausea and vomiting has resolved for now, continue to monitor (9) Hypoxia: Plan: -Patient was on 3L NC upon the start of my exam, no history of COPD and not on O2 at baseline -Lungs were clear on exam and CXR also clear -Possibly related to low lung volumes from her distended abdomen - mildly improved to 2LPM O2 today -Cannot rule out aspiration event with her multiple episodes of vomiting since arrival -Will wean O2 as able -Monitor volume status as she received 3L NSS between her EMS transport and time in the ED -MRSA swab negative (10) Portal vein thrombosis: Plan: -Small portal vein thrombus noted on CTA today which was not seen on previous CT in August 2021 -Patient has not been taking her Xarelto as prescribed due to easy bruising so not considered failed therapy -Discussed with Dr Cardona. 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 now with possible sepsis and recent hypotension (12) Hypoglycemia: Plan: -Resolved -No history of DM and not on antihyperglycemics -Will monitor fingerstick BSG q6h for now to be safe (13) Right middle lobe pulmonary nodule: Plan: -6 mm right middle lobe nodule noted on CTA today -Recommended to get repeat CT chest in 3 months to monitor for resolution (14) Dyslipidemia: Plan: -Not currently on a statin (15) Pulmonary emboli: Plan: -Normally on Xarelto, but only taking her Xarelto 3 times weekly because of easy bruising and bleeding -Continue Xarelto for now (16) Protein S deficiency: Plan: -See pulmonary emboli (17) Esophageal varices: Plan: -No signs of active bleeding, continue to monitor (18) Chronic diarrhea: Plan: -Follow-up with stool studies, hold antidiarrheals for now with hx of hepatic encephalopathy and current infectious workup (19) Reflux esophagitis: Plan: -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 Does not remember calling EMS but thinks she must have. Continuing to have red blood in stool and sometimes rust color. Lightheaded for last three weeks especially with standing up. Currently having suprapubic discomfort although she is unsure how long this has been going on. She has been having 12 bowel movements/day, Slimy consistency, since Sep. She is currently resting in bed and eating normally. No current lightheadedness while resting in bed. No chest pain or shortness of breath. Review of Systems Review of Systems: All systems reviewed & are unremarkable except as noted in Subjective Physical Exam Constitutional: well developed; + not well nourished and no acute distress Eyes: PERRL, conjunctivae normal, anicteric sclerae ENMT: external ear and nose normal, oropharynx normal Neck: trachea midline, no thyromegaly Respiratory: normal respiratory effort; no respiratory distress Auscultation: + diminished lung sounds (throughout posteriorly) and + crackles (bibasal); no rales, no rhonchi and no wheezes Cardiovascular: Rate/Rhythm: regular rate and regular rhythm Heart Sounds: no murmur Vessels: + JVD Extremities: normal capillary refill; no calf tenderness and no pedal edema Gastrointestinal (Abdomen): Inspection/Auscultation: abdomen normal to inspection, + abdomen distended and normal bowel sounds Percussion/Palpation: + abdomen tender (suprapubic) and abdomen soft; no guarding and abdomen not rigid Musculoskeletal: no cyanosis or clubbing, extremities motor strength 5/5 Skin: no rashes, warm and dry Neurologic: moves all extremities and awake; not confused Psychiatric: A+Ox3, euthymic affect Results & Data Results & Data ([facility]) Vital Signs (Past 12 Hours) Vital Signs Temp Pulse Pulse Resp BP Pulse Ox O2 Del Method 05/27/22 12:39 92 Nasal Cannula 05/27/22 11:00 36.8 C 70 18 93/54 L 89 L Room Air 05/27/22 07:54 94/54 L 93 Room Air 05/27/22 07:30 Nasal Cannula 05/27/22 07:30 70 05/27/22 07:03 36.6 C 80 17 88/44 L 93 Nasal Cannula 05/27/22 02:55 36.5 C 73 14 94/55 L 93 Room Air O2 Flow Rate 05/27/22 12:39 2 05/27/22 11:00 05/27/22 07:54 05/27/22 07:30 2 05/27/22 07:30 05/27/22 07:03 2 05/27/22 02:55 PG Care Time/CCT Total # of Minutes Spent Total Time Spent with Patient: Total time spent is greater than 50% in coordination of care (as documented) at patient's floor/unit and/or counseling patient: Coding Level of Care Code 80612 Subseq Hosp Care Lvl 3 Diagnoses Syncope R55 UTI (urinary tract infection) N39.0 RAFIQ (acute kidney injury) N17.9 Metabolic acidosis with normal anion gap and bicarbonate losses E87.2 Leukocytosis D72.829 Elevated troponin R77.8 Confusion R41.0 Vomiting R11.10 Hypoxia R09.02 Portal vein thrombosis I81 Cirrhosis K74.60 Hypoglycemia E16.2 Right middle lobe pulmonary nodule R91.1 Dyslipidemia E78.5 Pulmonary emboli I26.99 Protein S deficiency D68.59 Esophageal varices I85.00 Chronic diarrhea K52.9 Reflux esophagitis K21.0
[2022-05-27] MEDS: SODIUM BICARBONATE 650 MG TAB PO SCH ×2 (14:11→20:46)
--- NOTE | 2022-05-27 16:41 | XCELERA ---
[id number]
[2022-05-27] MEDS: RIVAROXABAN 10 MG TABLET PO SCH (20:45)
[2022-05-27] MEDS: CITALOPRAM 20 MG TAB PO SCH (20:45)
[2022-05-28] MEDS ORDERED: SODIUM CHLORIDE 0.9% 1000ML 500 ML IV ONE (03:09)
[2022-05-28] MEDS: CEFEPIME 2,000 MG in SYRINGE 0 ML IV SCH (03:54)
[2022-05-28 06:21] LABS: INR 1.7 (0.9-1.1); Prothrombin Time 17.8 Seconds (9.0-12.0)
[2022-05-28 06:37] LABS: Albumin Globulin Ratio 1.6 (0.9-2); Albumin Level 3.3 gm/dl (3.4-5.0); BUN Creatinine Ratio 15.8 (10-20); Calcium 7.7 mg/dl (8.5-10.1); Creatinine Clr Calc Pharmacy 17.3 ml/min; Est GFR (African American) 20.6 ml/min; Est GFR (Non-African American) 17.7 ml/min; Globulin 2.1 gm/dl (2.5-4.0); Potassium 3.2 mmol/L (3.5-5.1); Total Protein 5.4 gm/dl (6.0-8.3)
[2022-05-28 06:42] LABS: Hemoglobin 9.4 g/dl (12.0-16.0); Mean Corpuscular Hemoglobin 25.5 pg (25.0-34.0); Mean Corpuscular Hgb Conc 30.3 g/dL (32.0-36.0); Nucleated RBC # (auto) 0.11 K/uL (0-0); Nucleated RBC % (auto) 1.8 %; Platelet Count 103 K/uL (130-400); RDW Coefficient of Variation 17.3 % (11.5-14.5); RDW Standard Deviation 52.7 fL (36.4-46.3); Red Blood Count 3.69 M/uL (3.93-5.22); White Blood Count 6.17 K/ul (4.8-10.8)
[2022-05-28] MEDS ORDERED: POTASSIUM CHLORIDE CRTAB 20 MEQ TABCR PO STA ×2 (07:52→11:55)
[2022-05-28] MEDS: PANTOprazole 40 MG TAB PO SCH ×2 (08:06→20:24)
[2022-05-28] MEDS: SODIUM BICARBONATE 650 MG TAB PO SCH ×2 (08:06→20:24)
--- NOTE | 2022-05-28 10:32 | Nephrology Consultation ---
Date of Consultation May 28, 2022 Assessment & Plan (1) RAFIQ (acute kidney injury): (2) Metabolic acidosis with normal anion gap and bicarbonate losses: (3) UTI (urinary tract infection): (4) Syncope: (5) Acute hypotension: (6) Generalized weakness: (7) Diarrhea: Plan 66 yoF with hepatic cirrhosis, ascites and portal hypertension admitted with hypotension, generalized weakness and diarrhea. Baseline creatinine 1.1-1.2, admitted with creatinine of 1.6 which progressively worsened to 2.7 this morning most likely secondary to hemodynamic insult with hypotension, IV contrast exposure. No post renal obstruction. Urine output has been decent. Blood pressure slightly improved and staying reasonably stable. Metabolic acidosis with diarrhea and RAFIQ. Has significant ascites causing discomfort but no respiratory distress. --monitor renal function and electrolyte,intake and output, encourage po intake, aim for net positive with ongoing diarrhea --OK to continue on [place]b for now --may need paracentesis, avoid >5 L fluid removal, recommend IV albumin infusion with paracentesis --iron study Thank you for allowing me to participate in your patient's care. It was a pleasure to see Belgica. History of Present Illness Reason for Consultation: Acute kidney injury, metabolic acidosis. Attending Physician: Vidal Coleman MD History of Present Illness Belgica Roy is a 66-year-old F with past medical history significant for advanced liver cirrhosis with portal hypertension and splenomegaly, JAK2+ idiopathic myelofibrosis with thrombophilia and protein S deficiency. she was admitted yesterday with generalized weakness, diarrhea and fatigue. nephrology consult was requested as she was found to have progressive RAFIQ with metabolic acidosis. EMR records are reviewed in detail during patient's visit. Belgica presents to ER on 05/26/22 with generalized weakness and feeling faint with ongoing diarrhea. She was found to be hypotensive when EMS arrived and gave her 2 L of normal saline and brought her to the hospital, lowest systolic BP was in 80s. on admission creatinine was 1.6 which progressively worsened over last 2 days to 2.7 this morning. UA with low-grade proteinuria and hematuria. Hemoglobin was 9.44, INR was 1.7. Bicarb was [address] abdomen pelvis with contrast on admission showed bilateral atrophic kidney with no hydronephrosis. Never smoker, retired, no f/h of CKD, ESRD. Baseline creatinine has been 1.1-1.2, had an episode of RAFIQ in August 2021 which resolved and kidney function was back to baseline until recently. 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 Previously followed with cafeteria worker at [facility] but it considered not to be a candidate for liver transplant. She has a history of ascites had paracentesis done in September during hospitalization since and has b een stable until recently when abdominal ascites progressively worsened. h/o upper GI bleed and esophageal varices. She has history of PE and a protein S deficiency, on Lasix as well as rivaroxaban.Has extensive history of blood clots including DVT and PE. She feels uncomfortable her room with significant abdominal ascites but denies any shortness of breath. She was able to walk to the bathroom without getting dizzy or lightheaded, Blood pressure slightly improved. Allergies Allergy/AdvReac Type Severity Reaction Status Date / Time No Known Allergies Allergy Verified 05/26/22 20:32 Home Medications Medication Instructions Recorded Confirmed Type cholecalciferol (vitamin D3) 50 2,000 unit PO HS 08/30/18 05/26/22 History mcg (2,000 unit) capsule (Vitamin D3) ruxolitinib 10 mg tablet (Jakafi) 10 mg PO BID 05/25/19 05/26/22 History rivaroxaban 10 mg tablet (Xarelto) 10 mg PO QPM #90 tabs 05/02/21 05/26/22 Rx citalopram 20 mg tablet (Celexa) 30 mg PO HS #135 tabs 12/09/21 05/26/22 Rx 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 40 mg tablet,delayed 40 mg PO BID #180 tabs 12/09/21 05/26/22 Rx release propranolol 10 mg tablet 10 mg PO TID #270 tabs 03/07/22 05/26/22 Rx furosemide 20 mg tablet 40 mg PO QAM 05/26/22 05/26/22 History Patient History Medical History Anticoagulant long-term use Anxiety Cirrhosis Depression Erythromelalgia Esophageal varices hx banding 2 years ago Hepatomegaly Herpes simplex History of blood clots neck, liver > 20 years ago History of DVT (deep vein thrombosis) RLE - > 20 years ago History of gastrointestinal hemorrhage History of pulmonary embolism > 20 years ago Inflammatory polyarthritis Lung nodule seen on imaging study Myelodysplastic disease follows with Dr. Vergara On anticoagulant therapy Osteopenia determined by x-ray Portal hypertension Splenomegaly Upper GI bleed hx Surgical History H/O shoulder surgery Dr. Cornejo for left shoulder manipulation hx History of bone marrow biopsy History of colonoscopy History of esophagogastroduodenoscopy (EGD) most recent 12/25/20 [place] History of liver biopsy History of tubal ligation Family History Father , age 44 Heart disease Myocardial infarction Mother Hypertension Sister Coronary heart disease Mood disorder Sister Mood disorder Sister Mood disorder Sister Mood disorder Sister Mood disorder Sister Mood disorder Sister Mood disorder Brother Alcohol abuse Son , age 26 MVA (motor vehicle accident) Grandmother (Maternal) Breast cancer Aunt Breast cancer Other No family history of adverse response to anesthesia Denies family history of Ovarian cancer Prostate cancer Colorectal cancer Social History Smoking Status: Never smoker Second Hand Exposure: No; Hx Alcohol Use: No Hx Substance Use: No Preferred Language: Polish Communication Ability: Effective Visual Impairment: No Limitations Hearing Ability: Normal Nutritionalist Required: No Beliefs That Will Affect Care: None marital status: Current Living Situation: Spouse current occupational status: retired Feels Safe at Home: Yes Safety Concerns: Feels Safe At This Time Childhood Exposure to Second-Hand Smoke: Yes Dental Care, Regularly: Yes Physical Activity Frequency: Does not Exercise Seatbelt Use: always Sunscreen Use: Yes Assistive Devices: None Review of Systems Review of Systems: Detail ROS was otherwise unremarkable. Physical Exam Constitutional: WD/WN, vitals as above no acute distress Eyes: + anicteric sclerae ENMT: Ears: no hearing impairment Neck: normal visual inspection Respiratory: normal respiratory effort; no respiratory distress and no cough Auscultation: lungs clear to auscultation bilaterally Cardiovascular: Rate/Rhythm: regular rate and regular rhythm Heart Sounds: normal S1 and normal S2 Extremities: no edema Gastrointestinal (Abdomen): Inspection/Auscultation: + abdomen distended and normal bowel sounds Percussion/Palpation: + abdomen rigid and + ascites; abdomen nontender and no guarding Musculoskeletal: Extremities: extremities normal to inspection Skin: no rashes Neurologic: no focal motor deficits and not confused Psychiatric: Orientation: alert and oriented x 3 Affect: euthymic affect Results & Data ([facility]) Vital Signs (Past 12 Hours) Vital Signs Temp Pulse Pulse Resp BP Pulse Ox O2 Del Method 05/28/22 08:15 Nasal Cannula 05/28/22 08:15 69 05/28/22 07:05 36.8 C 69 16 96/46 L 92 Nasal Cannula 05/28/22 03:53 111/64 05/28/22 03:15 90/56 L 05/28/22 03:00 36.6 C 68 16 79/45 L 95 Room Air 05/27/22 23:59 66 05/27/22 23:00 36.5 C 67 20 100/63 98 Nasal Cannula O2 Flow Rate 05/28/22 08:15 2 05/28/22 08:15 05/28/22 07:05 2 05/28/22 03:53 05/28/22 03:15 05/28/22 03:00 05/27/22 23:59 05/27/22 23:00 PG Care Time/CCT Total # of Minutes Spent Total Time Spent with Patient: Total time spent is greater than 50% in coordination of care (as documented) at patient's floor/unit and/or counseling patient: Coding Level of Care Code 62102 Initial Inpt Care Lvl 3 Diagnoses RAFIQ (acute kidney injury) N17.9 Metabolic acidosis with normal anion gap and bicarbonate losses E87.2 UTI (urinary tract infection) N39.0 Syncope R55 Acute hypotension I95.9 Generalized weakness R53.1 Diarrhea R19.7
[2022-05-28] MEDS ORDERED: FUROSEMIDE 40 MG TAB PO ONE (11:55)
--- NOTE | 2022-05-28 13:02 | Hospitalist Progress Note ---
Date of Service May 28, 2022 Assessment & Plan (1) Syncope: Plan: Suspect due to propranolol and lasix use in setting of UTI/diarrhea. Continue to maintain MAP > 65. Hold propranolol. Will restart Lasix today as echo was concerning for hypervolemic state, JVD pre sent and abdominal ascites getting worse. (2) UTI (urinary tract infection): Plan: Suprapubic pain - although this is not unusual for her. No dysuria, No CVA tenderness. Continue cefepime pending urine (pinpoint growth) and blood cultures (3) RAFIQ (acute kidney injury): Plan: No obstructive cause seen on CT Suspect secondary to hypotensive episode at home and UTI as above Patient appears more hypervolemic on exam Patient reports good urine output Increase in Cr has slowed but given it has continued to get worse will consult nephrology (4) Metabolic acidosis with normal anion gap and bicarbonate losses: Plan: Normal anion gap Suspect due to RAFIQ and diarrhea Continue sodium bicarb 650mg PO BID (5) Ascites: Plan: Likely contributing towards hypoxia. Will arrange for US paracentesis tomorrow. Will need albumin prescribed after this procedure. Limit 3L to take off at that time. (6) Hypoxia: Plan: -Patient was on 3L NC on admission, no history of COPD and not on O2 at baseline -Lungs were clear on exam and CXR also clear -Possibly related to low lung volumes from her distended abdomen - mildly improved to 2LPM O2 today -Wean O2 as able -MRSA swab negative -Incentive spirometer (7) Leukocytosis: Plan: Now resolved Suspect stress reaction to syncope given quick resolution +/- UTI as above Patient without significant abdominal pain except suprapubic, well, appearing, normal procalcitonin, no fever or chills, therefore do not suspect spontaneous bacterial peritonitis. (8) Elevated troponin: Plan: - Suspected demand ischaemia with peak high sensitivity troponin 143 in the absence of chest pain or shortness of breath. - TTE without wall motion abnormalities - No chest pain or concerning EKG findings (9) Confusion: Plan: Secondary to hypoglycemia and UTI (10) Vomiting: Plan: -Unsure of the exact etiology at this time, nausea and vomiting has resolved for now, continue to monitor (11) Portal vein thrombosis: Plan: -Small portal vein thrombus noted on CTA on admission which was not seen on previous CT in August 2021 -Patient has not been taking her Xarelto as prescribed due to easy bruising so not considered failed therapy -Discussed with Dr Cardona. 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 with possible sepsis and recent hypotension (13) Hypoglycemia: Plan: -Resolved -No history of DM and not on antihyperglycemics -Will monitor fingerstick BSG q6h for now to be safe (14) Right middle lobe pulmonary nodule: Plan: -6 mm right middle lobe nodule noted on CTA today - Recommended to get repeat CT chest in 3 months to monitor for resolution (15) Dyslipidemia: Plan: -Not currently on a statin (16) Pulmonary emboli: Plan: -Normally on Xarelto, but only taking her Xarelto 3 times weekly because of easy bruising and bleeding -Continue Xarelto for now (17) Protein S deficiency: Plan: -See pulmonary emboli (18) Esophageal varices: Plan: -No signs of active bleeding, continue to monitor (19) Chronic diarrhea: Plan: -Follow-up with stool studies, hold antidiarrheals for now with hx of hepatic encephalopathy and current infectious workup (20) Reflux esophagitis: Plan: -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 No cough, fever or chills. No urinary symptoms. Reports good urine output. Review of Systems Review of Systems: All systems reviewed & are unremarkable except as noted in Subjective Physical Exam Constitutional: well developed; + not well nourished and no acute distress ENMT: external ear and nose normal, oropharynx normal Respiratory: normal respiratory effort; no respiratory distress Auscultation: + diminished lung sounds (throughout posteriorly); no crackles, no rales, no rhonchi and no wheezes Cardiovascular: Rate/Rhythm: regular rate and regular rhythm Heart Sounds: no murmur Vessels: + JVD Extremities: normal capillary refill; no calf tenderness and no pedal edema Gastrointestinal (Abdomen): Inspection/Auscultation: abdomen normal to inspection, + abdomen distended and normal bowel sounds Percussion/Palpation: + abdomen tender (suprapubic) and abdomen soft; no guarding and abdomen not rigid Musculoskeletal: no cyanosis or clubbing, extremities motor strength 5/5 Skin: no rashes, warm and dry Neurologic: moves all extremities and awake; not confused Psychiatric: A+Ox3, euthymic affect Results & Data Results & Data ([facility]) Vital Signs (Past 12 Hours) Vital Signs Temp Pulse Pulse Resp BP Pulse Ox O2 Del Method 05/28/22 10:42 36.5 C 64 16 101/58 L 98 Nasal Cannula 05/28/22 08:15 Nasal Cannula 05/28/22 08:15 69 05/28/22 07:05 36.8 C 69 16 96/46 L 92 Nasal Cannula 05/28/22 03:53 111/64 05/28/22 03:15 90/56 L 05/28/22 03:00 36.6 C 68 16 79/45 L 95 Room Air O2 Flow Rate 05/28/22 10:42 2 05/28/22 08:15 2 05/28/22 08:15 05/28/22 07:05 2 05/28/22 03:53 05/28/22 03:15 05/28/22 03:00 PG Care Time/CCT Total # of Minutes Spent Total Time Spent with Patient: Total time spent is greater than 50% in coordination of care (as documented) at patient's floor/unit and/or counseling patient: Coding Level of Care Code 69249 Subseq Hosp Care Lvl 3 Diagnoses Syncope R55 UTI (urinary tract infection) N39.0 RAFIQ (acute kidney injury) N17.9 Metabolic acidosis with normal anion gap and bicarbonate losses E87.2 Ascites R18.8 Hypoxia R09.02 Leukocytosis D72.829 Elevated troponin R77.8 Confusion R41.0 Vomiting R11.10 Portal vein thrombosis I81 Cirrhosis K74.60 Hypoglycemia E16.2 Right middle lobe pulmonary nodule R91.1 Dyslipidemia E78.5 Pulmonary emboli I26.99 Protein S deficiency D68.59 Esophageal varices I85.00 Chronic diarrhea K52.9 Reflux esophagitis K21.0
--- NOTE | 2022-05-28 13:10 | Ultrasound Report ---
LEFT LOWER EXTREMITY VENOUS DOPPLER HISTORY: Acute pain and swelling of the left lower leg left leg pain COMPARISON STUDY: None. FINDINGS: There is normal compressibility, flow, and augmentation within the left lower extremity cary p venous system. IMPRESSION: No DVT within the left lower extremity. ACT 112: Negative or not required by law. Electronically signed by: Rai Cassidy M.D. 05/28/2022 1:09 PM
[2022-05-28] MEDS: RIVAROXABAN 10 MG TABLET PO SCH (20:23)
[2022-05-28] MEDS: CITALOPRAM 20 MG TAB PO SCH (20:23)
[2022-05-28 22:51] LABS: Adenovirus F 40/41 PCR Not Detected (NotDetected); Astrovirus PCR Not Detected (NotDetected); Campylobacter PCR Not Detected (NotDetected); Clostridium diff Toxin A/B PCR Not Detected (NotDetected); Cryptosporidium PCR Not Detected (NotDetected); Cyclospora cayetanensis PCR Not Detected (NotDetected); Entamoeba histolytica PCR Not Detected (NotDetected); Enteroaggregative E.coli(EAEC) Not Detected (NotDetected); Enteropathogenic E.coli (EPEC) Not Detected (NotDetected); Enterotoxigenic E.coli (ETEC) Not Detected (NotDetected); Giardia lamblia PCR Not Detected (NotDetected); Norovirus GI/GII PCR Not Detected (NotDetected); Plesiomonas shigelloides PCR Not Detected (NotDetected); Rotavirus A PCR Not Detected (NotDetected); Salmonella PCR Not Detected (NotDetected); Sapovirus PCR Not Detected (NotDetected); Shiga-like Toxin E.coli (STEC) Not Detected (NotDetected); Shigella/Enteroinvasive E.coli Not Detected (NotDetected); Vibrio cholerae PCR Not Detected (NotDetected); Vibrio species PCR Not Detected (NotDetected); Yersinia enterocolitica PCR Not Detected (NotDetected)
[2022-05-29] MEDS: CEFEPIME 2,000 MG in SYRINGE 0 ML IV SCH (05:23)
[2022-05-29 06:34] LABS: Hematocrit (blood only) 32.8 % (34.1-44.9); Hemoglobin 9.7 g/dl (12.0-16.0); Mean Corpuscular Hemoglobin 24.7 pg (25.0-34.0); Mean Corpuscular Hgb Conc 29.6 g/dL (32.0-36.0); Mean Corpuscular Volume 83.7 fL (80.0-100.0); Nucleated RBC # (auto) 0.08 K/uL (0-0); Nucleated RBC % (auto) 1.5 %; RDW Coefficient of Variation 17.3 % (11.5-14.5); RDW Standard Deviation 52.3 fL (36.4-46.3); Red Blood Count 3.92 M/uL (3.93-5.22); White Blood Count 5.29 K/ul (4.8-10.8)
[2022-05-29 06:52] LABS: Albumin Globulin Ratio 1.7 (0.9-2); Albumin Level 3.7 gm/dl (3.4-5.0); BUN Creatinine Ratio 14.7 (10-20); Calcium 8.3 mg/dl (8.5-10.1); Creatinine Clr Calc Pharmacy 18.2 ml/min; Est GFR (African American) 21.8 ml/min; Est GFR (Non-African American) 18.8 ml/min; Globulin 2.2 gm/dl (2.5-4.0); Potassium 3.3 mmol/L (3.5-5.1); Total Protein 5.9 gm/dl (6.0-8.3)
[2022-05-29 07:03] LABS: Platelet Count 93 K/uL (130-400); Platelet Estimate Decreased (Normal)
[2022-05-29 07:21] LABS: INR 1.6 (0.9-1.1); Prothrombin Time 16.7 Seconds (9.0-12.0)
[2022-05-29] MEDS: PANTOprazole 40 MG TAB PO SCH ×2 (08:18→20:03)
[2022-05-29] MEDS: SODIUM BICARBONATE 650 MG TAB PO SCH ×2 (08:18→20:03)
--- NOTE | 2022-05-29 09:35 | Ultrasound Report ---
US abdomen ltd ascites HISTORY: 66 years-old Female ascites follow-up study in a patient with recurrent ascites COMPARISON: CT abdomen and pelvis 05/26/2022 TECHNIQUE: Multiple real-time sonographic images of the abdomen were obtained assessing grayscale delfin earance and color flow FINDINGS/IMPRESSION: Cirrhotic liver with small amount of abdominal pelvic ascites redemonstrated. Since only a small amou nt of ascites was present, the paracentesis was not performed. ACT 112: Negative or not required by law. The above report was generated using voice recognition software. It may contain grammatical, syntax o r spelling errors. Electronically signed by: Rai Cassidy M.D. 05/29/2022 9:33 AM
--- NOTE | 2022-05-29 09:39 | Nephrology Progress Note ---
Date of Service May 29, 2022 Assessment & Plan (1) RAFIQ (acute kidney injury): (2) Metabolic acidosis with normal anion gap and bicarbonate losses: (3) UTI (urinary tract infection): (4) Syncope: (5) Acute hypotension: (6) Generalized weakness: (7) Diarrhea: Plan 66 yoF with hepatic cirrhosis, ascites and portal hypertension admitted with hypotension, generalized weakness and diarrhea. Baseline creatinine 1.1-1.2, admitted with creatinine of 1.6 which progressively worsened to 2.7 this morning most likely secondary to hemodynamic insult with hypotension, IV contrast exposure. No post renal obstruction. Urine output has been decent. Blood pressure slightly improved and staying reasonably stable. Metabolic acidosis with diarrhea and RAFIQ. Has significant ascites causing discomfort but no respiratory distress. Renal function and electrolyte started to improve, BP stable. Hb stable. --monitor renal function and electrolyte,intake and output, encourage po intake, aim to keep in positive balance. --continue on [place] Admission and Anticipated Discharge Date Admission Date: May 26, 2022 Subjective [place]gica just left for paracentesis, direct exam was not done, labs reviewed , discussed with acre team. Was having tense ascites and mild respiratory distress. BP stable. Renal function slightly improved. Results & Data ([facility]) Vital Signs (Past 12 Hours) Vital Signs Temp Pulse Pulse Resp BP Pulse Ox O2 Del Method 05/29/22 07:00 75 05/29/22 07:15 36.6 C 76 19 105/65 98 Nasal Cannula 05/29/22 03:14 36.6 C 71 20 121/69 98 Nasal Cannula 05/28/22 23:59 65 05/28/22 23:05 36.5 C 67 20 117/68 94 Nasal Cannula O2 Flow Rate 05/29/22 07:00 05/29/22 07:15 2 05/29/22 03:14 2 05/28/22 23:59 05/28/22 23:05 2 PG Care Time/CCT Total # of Minutes Spent Total Time Spent with Patient: Total time spent is greater than 50% in coordination of care (as documented) at patient's floor/unit and/or counseling patient: Coding Level of Care Code 65061 Subseq Hosp Care Lvl 2 Diagnoses RAFIQ (acute kidney injury) N17.9 Metabolic acidosis with normal anion gap and bicarbonate losses E87.2 UTI (urinary tract infection) N39.0 Syncope R55 Acute hypotension I95.9 Generalized weakness R53.1 Diarrhea R19.7
--- NOTE | 2022-05-29 10:32 | Hospitalist Progress Note ---
Date of Service May 29, 2022 Assessment & Plan (1) Syncope: Plan: Suspect due to propranolol and lasix use in setting of UTI/diarrhea. Continue to maintain MAP > 65. Hold propranolol. Given that patient has cirrhosis, patient will benefit from lasix and psironolo actone. Currently patient is hemodynamycally stable. will hold off diuretics. minimal ascitic fluid notied on imaging. will obtain KUB as patient is distended. (2) UTI (urinary tract infection): Plan: Suprapubic pain - although this is not unusual for her. No dysuria, No CVA tenderness. Continue cefepime pending urine (pinpoint growth) and blood cultures No change as culture has not resulted in 05/29/22 (3) RAFIQ (acute kidney injury): Plan: No obstructive cause seen on CT Suspect secondary to hypotensive episode at home and UTI as above Patient appears more hypervolemic on exam Patient reports good urine output Appreciate input from Nephro. will monitor creatinine, slowly improved on 05/29 (4) Metabolic acidosis with normal anion gap and bicarbonate losses: Plan: Normal anion gap Suspect due to RAFIQ and diarrhea Continue sodium bicarb 650mg PO BID (5) Ascites: Plan: Likely contributing towards hypoxia. Minimal ascities noted on imaging on 05/29 will obtain KUB to assess for distention (6) Hypoxia: Plan: -Patient was on 3L NC on admission, no history of COPD and not on O2 at baseline -Lungs were clear on exam and CXR also clear -Possibly related to low lung volumes from her distended abdomen - mildly improved to 2LPM O2 today -Wean O2 as able -MRSA swab negative -Incentive spirometer (7) Leukocytosis: Plan: Now resolved Suspect stress reaction to syncope given quick resolution +/- UTI as above Patient without significant abdominal pain except suprapubic, well, appearing, normal procalcitonin, no fever or chills, therefore do not suspect spontaneous bacterial peritonitis. (8) Elevated troponin: Plan: - Suspected demand ischaemia with peak high sensitivity troponin 143 in the absence of chest pain or shortness of breath. - TTE without wall motion abnormalities - No chest pain or concerning EKG findings (9) Confusion: Plan: Secondary to hypoglycemia and UTI (10) Vomiting: Plan: -Unsure of the exact etiology at this time, nausea and vomiting has resolved for now, continue to monitor (11) Portal vein thrombosis: Plan: -Small portal vein thrombus noted on CTA on admission which was not seen on previous CT in August 2021 -Patient has not been taking her Xarelto as prescribed due to easy bruising so not considered failed therapy -Discussed with Dr Cardona. No need for hematology consult at present time (12) Cirrhosis: Plan: -Does not appear to be in acute liver failure or hepatic encephalopathy -Was taken off Spironolactone and Lactulose previously -Hold HOSPICE DIRECTOR lasix for now with possible sepsis and recent hypotension (13) Hypoglycemia: Plan: -Resolved -No history of DM and not on antihyperglycemics -Will monitor fingerstick BSG q6h for now to be safe (14) Right middle lobe pulmonary nodule: Plan: -6 mm right middle lobe nodule noted on CTA today - Recommended to get repeat CT chest in 3 months to monitor for resolution (15) Dyslipidemia: Plan: -Not currently on a statin (16) Pulmonary emboli: Plan: -Normally on Xarelto, but only taking her Xarelto 3 times weekly because of easy bruising and bleeding -Continue Xarelto for now (17) Protein S deficiency: Plan: -See pulmonary emboli (18) Esophageal varices: Plan: -No signs of active bleeding, continue to monitor (19) Chronic diarrhea: Plan: -Follow-up with stool studies, hold antidiarrheals for now with hx of hepatic encephalopathy and current infectious workup (20) Reflux esophagitis: Plan: -HOSPICE DIRECTOR 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 Plan VTE Prophylaxis - Xarelto Diet - heart healthy Disposition - continue on PCU Admission and Anticipated Discharge Date Admission Date: May 26, 2022 Subjective 66 yo female reports feeling somewhat terrible. She has weakness, fatigue, dull abdominal pain, Review of Systems Review of Systems: All systems reviewed & are unremarkable except as noted in HPI & below Physical Exam Constitutional: well developed; + not well nourished and no acute distress Eyes: PERRL, conjunctivae normal, anicteric sclerae ENMT: external ear and nose normal, oropharynx normal Neck: trachea midline, no thyromegaly Respiratory: normal respiratory effort; no respiratory distress Auscultation: + diminished lung sounds (throughout posteriorly); no crackles, no rales, no rhonchi and no wheezes Cardiovascular: Rate/Rhythm: regular rate and regular rhythm Heart Sounds: no murmur Vessels: + JVD Extremities: normal capillary refill; no calf tenderness and no pedal edema Gastrointestinal (Abdomen): Inspection/Auscultation: abdomen normal to inspection, + abdomen distended and normal bowel sounds Percussion/Palpation: + abdomen tender (suprapubic) and abdomen soft; no guarding and abdomen not rig id Musculoskeletal: no cyanosis or clubbing, extremities motor strength 5/5 Skin: no rashes, warm and dry Neurologic: moves all extremities and awake; not confused Psychiatric: A+Ox3, euthymic affect Results & Data Results & Data ([facility]) Vital Signs (Past 12 Hours) Vital Signs Temp Pulse Pulse Resp BP Pulse Ox O2 Del Method 05/29/22 07:00 75 05/29/22 07:15 36.6 C 76 19 105/65 98 Nasal Cannula 05/29/22 03:14 36.6 C 71 20 121/69 98 Nasal Cannula 05/28/22 23:59 65 05/28/22 23:05 36.5 C 67 20 117/68 94 Nasal Cannula O2 Flow Rate 05/29/22 07:00 05/29/22 07:15 2 05/29/22 03:14 2 05/28/22 23:59 05/28/22 23:05 2 PG Care Time/CCT Total # of Minutes Spent Total Time Spent with Patient: Total time spent is greater than 50% in coordination of care (as documented) at patient's floor/unit and/or counseling patient: Coding Level of Care Code 72344 Subseq Hosp Care Lvl 3 Diagnoses Syncope R55 UTI (urinary tract infection) N39.0 RAFIQ (acute kidney injury) N17.9 Metabolic acidosis with normal anion gap and bicarbonate losses E87.2 Ascites R18.8 Hypoxia R09.02 Leukocytosis D72.829 Elevated troponin R77.8 Confusion R41.0 Vomiting R11.10 Portal vein thrombosis I81 Cirrhosis K74.60 Hypoglycemia E16.2 Right middle lobe pulmonary nodule R91.1 Dyslipidemia E78.5 Pulmonary emboli I26.99 Protein S deficiency D68.59 Esophageal varices I85.00 Chronic diarrhea K52.9 Reflux esophagitis K21.0 Time Spent (min) 35
--- NOTE | 2022-05-29 12:58 | XRay Report ---
KUB CLINICAL HISTORY: Abdominal distention. COMPARISON STUDY: CT of the abdomen and pelvis May 26, 2022. FINDINGS: Sclerotic foci within visualized skeletal structures are again noted. Splenomegaly is jeni r depicted on prior CT. There is no radiographic evidence for a bowel obstruction. There is a paucity of small bowel gas. IMPRESSION: No radiographic evidence for a bowel obstruction. ACT 112: Negative or not required by law. Electronically signed by: Erickson Alfonso M.D. 05/29/2022 12:56 PM
[2022-05-29] MEDS: CITALOPRAM 20 MG TAB PO SCH (20:02)
[2022-05-29] MEDS: RIVAROXABAN 10 MG TABLET PO SCH (20:03)
[2022-05-30] MEDS: CEFEPIME 2,000 MG in SYRINGE 0 ML IV SCH (03:41)
[2022-05-30 05:00] LABS: INR 1.7 (0.9-1.1); Prothrombin Time 17.5 Seconds (9.0-12.0)
[2022-05-30 05:37] LABS: Ferritin 74.9 ng/ml (8-388)
[2022-05-30 05:46] LABS: Hematocrit (blood only) 28.9 % (34.1-44.9); Hemoglobin 8.9 g/dl (12.0-16.0); Mean Corpuscular Hemoglobin 25.6 pg (25.0-34.0); Mean Corpuscular Hgb Conc 30.8 g/dL (32.0-36.0); Mean Corpuscular Volume 83.3 fL (80.0-100.0); Nucleated RBC # (auto) 0.09 K/uL (0-0); Nucleated RBC % (auto) 2.2 %; Platelet Count 66 K/uL (130-400); RDW Standard Deviation 50.4 fL (36.4-46.3); Red Blood Count 3.47 M/uL (3.93-5.22); White Blood Count 4.03 K/ul (4.8-10.8)
[2022-05-30 05:56] LABS: Albumin Level 3.5 gm/dl (3.4-5.0); BUN Creatinine Ratio 13.4 (10-20); Bilirubin Direct 0.2 mg/dl (0-0.2); Bilirubin,Total 1.1 mg/dl (0.2-1.0); Calcium 8.1 mg/dl (8.5-10.1); Est GFR (Non-African American) 22.4 ml/min; Potassium 3.4 mmol/L (3.5-5.1); Total Protein 5.5 gm/dl (6.0-8.3)
[2022-05-30] MEDS: PANTOprazole 40 MG TAB PO SCH ×2 (08:16→20:10)
[2022-05-30] MEDS: SODIUM BICARBONATE 650 MG TAB PO SCH ×2 (08:16→20:11)
[2022-05-30] MEDS: IRON SUCROSE 200 MG in 0.9 % SODIUM CHLORIDE 100 ML IV SCH (09:17)
--- NOTE | 2022-05-30 10:25 | Nephrology Progress Note ---
Date of Service May 30, 2022 Assessment & Plan (1) RAFIQ (acute kidney injury): (2) Metabolic acidosis with normal anion gap and bicarbonate losses: (3) UTI (urinary tract infection): (4) Syncope: (5) Acute hypotension: (6) Generalized weakness: (7) Diarrhea: Plan 66 yoF with hepatic cirrhosis, ascites and portal hypertension admitted with hypotension, UTI, generalized weakness and diarrhea. Baseline creatinine 1.1- 1.2, admitted with creatinine of 1.6 which progressively worsened to 2.7 this morning most likely secondary to hemodynamic insult with hypotension, IV contrast exposure. No post renal obstruction. Urine output has been decent. Blood pressure slightly improved and staying reasonably stable. Metabolic acidosis with diarrhea and RAFIQ. on cefepime for UTI. Has significant ascites causing discomfort but no respiratory distress. Paracentesis was planned on 05/29/2022 but it was not possible as radiologist felt the acetic fluid is somewhat D and loculated and there is increased risk for bowel perforation and decided not to do it. Renal function and electrolyte started to improve, BP stable. Hb stable. --monitor renal function and electrolyte,intake and output, encourage po intake, aim to keep in positive balance. --continue on [place] --Start on Spironolactone 25 mg po daily and increase as tolerated but the continue to hold Lasix for now while renal function improving very slowly from recent RAFIQ. -- start on Venofer 200 mg IV daily for total 5 doses -- strict measurement of intake and output Will follow Admission and Anticipated Discharge Date Admission Date: May 26, 2022 Heriberto Lnido was seen and examined in her room this morning. She continues to have some discomfort in abdomen and gets short of breath while talking or taking deep breath. Appetite decent but gets easily food with small meal. Continues to have diarrhea. Renal function has been slowly improving, creatinine down to 2. 2. She has been voiding normally but unmeasured. Review of Systems Review of Systems: Detail ROS was otherwise unremarkable. Physical Exam Constitutional: WD/WN, vitals as above no acute distress Eyes: + anicteric sclerae ENMT: Ears: no hearing impairment Respiratory: Auscultation: lungs clear to auscultation bilaterally Cardiovascular: RRR, no murmur, no edema Skin: no rashes Neurologic: no focal motor deficits Psychiatric: Orientation: alert and oriented x 3 Results & Data ([facility]) Vital Signs (Past 12 Hours) Vital Signs Temp Pulse Resp BP Pulse Ox O2 Del Method O2 Flow Rate 05/30/22 07:00 36.7 C 74 18 115/64 94 Room Air 05/30/22 02:56 36.8 C 76 20 111/67 94 Room Air 05/29/22 23:00 36.9 C 77 20 103/59 L 96 Nasal Cannula 2 PG Care Time/CCT Total # of Minutes Spent Total Time Spent with Patient: Total time spent is greater than 50% in coordination of care (as documented) at patient's floor/unit and/or counseling patient: Coding Level of Care Code 03177 Subseq Hosp Care Lvl 3 Diagnoses RAFIQ (acute kidney injury) N17.9 Metabolic acidosis with normal anion gap and bicarbonate losses E87.2 UTI (urinary tract infection) N39.0 Syncope R55 Acute hypotension I95.9 Generalized weakness R53.1 Diarrhea R19.7
[2022-05-30] MEDS: SPIRONOLACTONE 25 MG TAB PO SCH (11:57)
--- NOTE | 2022-05-30 17:43 | Hospitalist Progress Note ---
Date of Service May 30, 2022 Assessment & Plan (1) Syncope: Plan: Suspect due to propranolol and lasix use in setting of UTI/diarrhea. Continue to maintain MAP > 65. Hold propranolol. Given that patient has cirrhosis, patient will benefit from lasix and spironolo actone. Currently patient is hemodynamycally stable. will hold off diuretics. minimal ascitic fluid noted on imaging. KUB is NEGATIVE for Ileus. (2) UTI (urinary tract infection): Plan: Suprapubic pain - although this is not unusual for her. No dysuria, No CVA tenderness. Continue cefepime pending urine (pinpoint growth) and blood cultures No change as culture has not resulted in 05/29/22 (3) RAFIQ (acute kidney injury): Plan: No obstructive cause seen on CT Suspect secondary to hypotensive episode at home and UTI as above Patient appears more hypervolemic on exam Patient reports good urine output Appreciate input from Nephro. will monitor creatinine, continue to improve on 05/30 will repeat in AM. (4) Metabolic acidosis with normal anion gap and bicarbonate losses: Plan: Normal anion gap Suspect due to RAFIQ and diarrhea Continue sodium bicarb 650mg PO BID (5) Ascites: Plan: Likely contributing towards hypoxia. Minimal ascities noted on imaging on 05/29 KUB negative for Ileus (6) Hypoxia: Plan: -Patient was on 3L NC on admission, no history of COPD and not on O2 at baseline -Lungs were clear on exam and CXR also clear -Possibly related to low lung volumes from her distended abdomen - mildly improved to 2LPM O2 today -Wean O2 as able -MRSA swab negative -Incentive spirometer (7) Leukocytosis: Plan: Now resolved Suspect stress reaction to syncope given quick resolution +/- UTI as above Patient without significant abdominal pain except suprapubic, well, appearing, normal procalcitonin, no fever or chills, therefore do not suspect spontaneous bacterial peritonitis. (8) Elevated troponin: Plan: - Suspected demand ischaemia with peak high sensitivity troponin 143 in the absence of chest pain or shortness of breath. - TTE without wall motion abnormalities - No chest pain or concerning EKG findings (9) Confusion: Plan: Secondary to hypoglycemia and UTI (10) Vomiting: Plan: -Unsure of the exact etiology at this time, nausea and vomiting has resolved for now, continue to monitor (11) Portal vein thrombosis: Plan: -Small portal vein thrombus noted on CTA on admission which was not seen on previous CT in August 2021 -Patient has not been taking her Xarelto as prescribed due to easy bruising so not considered failed therapy -Discussed with Dr Cardona. No need for hematology consult at present time (12) Cirrhosis: Plan: -Does not appear to be in acute liver failure or hepatic encephalopathy -Was taken off Spironolactone and Lactulose previously -Hold ASSOCIATE ACCOUNT MANAGER lasix for now with possible sepsis and recent hypotension (13) Hypoglycemia: Plan: -Resolved -No history of DM and not on antihyperglycemics -Will monitor fingerstick BSG q6h for now to be safe (14) Right middle lobe pulmonary nodule: Plan: -6 mm right middle lobe nodule noted on CTA today - Recommended to get repeat CT chest in 3 months to monitor for resolution (15) Dyslipidemia: Plan: -Not currently on a statin (16) Pulmonary emboli: Plan: -Normally on Xarelto, but only taking her Xarelto 3 times weekly because of easy bruising and bleeding -Continue Xarelto for now (17) Protein S deficiency: Plan: -See pulmonary emboli (18) Esophageal varices: Plan: -No signs of active bleeding, continue to monitor (19) Chronic diarrhea: Plan: -Follow-up with stool studies, hold antidiarrheals for now with hx of hepatic encephalopathy and current infectious workup (20) Reflux esophagitis: Plan: -ASSOCIATE ACCOUNT MANAGER 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 Plan VTE Prophylaxis - Xarelto Diet - heart healthy Admission and Anticipated Discharge Date Admission Date: May 26, 2022 Subjective Patient reports feeling better. She is having multiple bowel movements a day. She is able to ambulate to the bathroom. She reports interested in the goals of care form. Review of Systems Review of Systems: All systems reviewed & are unremarkable except as noted in HPI & below Physical Exam Constitutional: well developed; + not well nourished and no acute distress Eyes: PERRL, conjunctivae normal, anicteric sclerae ENMT: external ear and nose normal, oropharynx normal Neck: trachea midline, no thyromegaly Respiratory: normal respiratory effort; no respiratory distress Auscultation: + diminished lung sounds (throughout posteriorly); no crackles, no rales, no rhonchi and no wheezes Cardiovascular: Rate/Rhythm: regular rate and regular rhythm Heart Sounds: no murmur Vessels: + JVD Extremities: normal capillary refill; no calf tenderness and no pedal edema Gastrointestinal (Abdomen): Inspection/Auscultation: abdomen normal to inspection, + abdomen distended and normal bowel sounds Percussion/Palpation: + abdomen tender (suprapubic) and abdomen soft; no guarding and abdomen not rigid Musculoskeletal: no cyanosis or clubbing, extremities motor strength 5/5 Skin: no rashes, warm and dry Neurologic: moves all extremities and awake; not confused Psychiatric: A+Ox3, euthymic affect Results & Data Results & Data ([facility]) Vital Signs (Past 12 Hours) Vital Signs Temp Pulse Resp BP BP Pulse Ox O2 Del Method 05/30/22 15:30 36.6 C 71 18 101/59 L 96 Nasal Cannula 05/30/22 14:00 72 05/30/22 10:42 36.6 C 71 19 116/64 96 Nasal Cannula 05/30/22 07:00 36.7 C 74 18 115/64 94 Room Air O2 Flow Rate 05/30/22 15:30 2 05/30/22 14:00 05/30/22 10:42 05/30/22 07:00 PG Care Time/CCT Total # of Minutes Spent Total Time Spent with Patient: Total time spent is greater than 50% in coordination of care (as documented) at patient's floor/unit and/or counseling patient: Coding Level of Care Code 92952 Subseq Hosp Care Lvl 2 Diagnoses Syncope R55 UTI (urinary tract infection) N39.0 RAFIQ (acute kidney injury) N17.9 Metabolic acidosis with normal anion gap and bicarbonate losses E87.2 Ascites R18.8 Hypoxia R09.02 Leukocytosis D72.829 Elevated troponin R77.8 Confusion R41.0 Vomiting R11.10 Portal vein thrombosis I81 Cirrhosis K74.60 Hypoglycemia E16.2 Right middle lobe pulmonary nodule R91.1 Dyslipidemia E78.5 Pulmonary emboli I26.99 Protein S deficiency D68.59 Esophageal varices I85.00 Chronic diarrhea K52.9 Reflux esophagitis K21.0
[2022-05-30] MEDS: CITALOPRAM 20 MG TAB PO SCH (20:09)
[2022-05-30] MEDS: RIVAROXABAN 10 MG TABLET PO SCH (20:10)
[2022-05-31 06:46] LABS: Hematocrit (blood only) 28.8 % (34.1-44.9); Mean Corpuscular Hemoglobin 25.5 pg (25.0-34.0); Mean Corpuscular Hgb Conc 31.3 g/dL (32.0-36.0); Mean Corpuscular Volume 81.6 fL (80.0-100.0); Nucleated RBC # (auto) 0.12 K/uL (0-0); Nucleated RBC % (auto) 2.9 %; Platelet Count 74 K/uL (130-400); RDW Standard Deviation 49.8 fL (36.4-46.3); Red Blood Count 3.53 M/uL (3.93-5.22); White Blood Count 4.14 K/ul (4.8-10.8)
[2022-05-31 06:53] LABS: INR 1.7 (0.9-1.1); Prothrombin Time 17.4 Seconds (9.0-12.0)
[2022-05-31 07:13] LABS: Albumin Globulin Ratio 1.8 (0.9-2); Albumin Level 3.6 gm/dl (3.4-5.0); BUN Creatinine Ratio 12.1 (10-20); Calcium 8.4 mg/dl (8.5-10.1); Creatinine Clr Calc Pharmacy 22.7 ml/min; Est GFR (African American) 28.6 ml/min; Est GFR (Non-African American) 24.7 ml/min; Potassium 3.4 mmol/L (3.5-5.1); Total Protein 5.6 gm/dl (6.0-8.3)
[2022-05-31] MEDS: SPIRONOLACTONE 25 MG TAB PO SCH (08:19)
[2022-05-31] MEDS: SODIUM BICARBONATE 650 MG TAB PO SCH ×2 (08:19→20:06)
[2022-05-31] MEDS: PANTOprazole 40 MG TAB PO SCH ×2 (08:19→20:06)
[2022-05-31] MEDS: IRON SUCROSE 200 MG in 0.9 % SODIUM CHLORIDE 100 ML IV SCH (08:21)
--- NOTE | 2022-05-31 09:41 | Nephrology Progress Note ---
Date of Service May 31, 2022 Assessment & Plan (1) RAFIQ (acute kidney injury): Plan: * RAFIQ due to intravascular volume contraction related to GI illness and IV contrast administration * Creatinine is trending down. Urine volume has not been measured. Volume stat us and electrolyte balance are acceptable at this time * Baseline Cr 1.0 (11/12) * Continue conservative medical care, avoid known nephrotoxic agents, monitor UO, monitor PRP (2) Metabolic acidosis with normal anion gap and bicarbonate losses: Plan: * Continue NaHCO3 650 mg po BID (3) Anemia: Plan: * On Venofer 200 mg IV daily - day #2 of 5 (4) Cirrhosis: Plan: * Patient appears cachectic with marked abdominal distention. On exam there is no abdominal fluid wave. 05/26/[address] films reviewed today - L lobe of liver is enlarged and extends past midline. Patient has marked splenomegally Admission and Anticipated Discharge Date Admission Date: May 26, 2022 Subjective Mrs. Roy was evaluated in her hospital room this morning. She c/o abdominal distention but denied fever, flank pain or uremic symptoms Review of Systems Constitutional: no fever Eyes: no problem reported Ear, Nose, Mouth, Throat: no problem reported Respiratory: no cough and no dyspnea Cardiovascular: no chest pain Gastrointestinal: + bloating; no abdominal pain Genitourinary: no dysuria Physical Exam Constitutional: + thin; not in distress Eyes: PERRL, conjunctivae normal, anicteric sclerae ENMT: external ear and nose normal, oropharynx normal Neck: trachea midline, no thyromegaly Respiratory: normal respiratory effort, lungs clear to auscultation Cardiovascular: RRR, no murmur, no edema Gastrointestinal (Abdomen): Inspection/Auscultation: + abdomen distended and + hypoactive bowel sounds Results & Data ([facility]) Vital Signs (Past 12 Hours) Vital Signs Temp Pulse Pulse Resp BP BP Pulse Ox 05/31/22 07:00 36.7 C 75 20 116/67 94 05/31/22 03:00 36.8 C 76 16 116/70 95 05/30/22 23:59 80 05/30/22 23:00 36.3 C L 76 18 127/77 97 O2 Del Method 05/31/22 07:00 Room Air 05/31/22 03:00 Room Air 05/30/22 23:59 05/30/22 23:00 Nasal Cannula Laboratory Results Laboratory Tests 05/31/22 05/31/22 05:26 05:26 WBC 4.14 L Hgb 9.0 L Hct 28.8 L Plt Count 74 L Sodium 139 Potassium 3.4 L Chloride 114 H Carbon Dioxide 19 L BUN 25 H Creatinine 2.07 H Calcium 8.4 L Albumin 3.6 Laboratory Tests 05/28/22 05/29/22 05/30/22 05:22 05:38 04:33 Creatinine 2.72 H D 2.59 H 2.24 H D 05/31/22 05:26 Creatinine 2.07 H PG Care Time/CCT Total # of Minutes Spent Total Time Spent with Patient: Total time spent is greater than 50% in coordination of care (as documented) at patient's floor/unit and/or counseling patient: Coding Level of Care Code 99105 Subseq Hosp Care Lvl 3 Diagnoses RAFIQ (acute kidney injury) N17.9 Metabolic acidosis with normal anion gap and bicarbonate losses E87.2 Anemia D64.9 Cirrhosis K74.60
[2022-05-31] MEDS ORDERED: traMADol HCL 50 MG TABLET PO STA (15:01)
--- NOTE | 2022-05-31 17:41 | Hospitalist Progress Note ---
Date of Service May 31, 2022 Assessment & Plan (1) Syncope: Plan: Suspect due to propranolol and lasix use in setting of UTI/diarrhea. Continue to maintain MAP > 65. Hold propranolol. Given that patient has cirrhosis, patient will benefit from lasix and spironol oactone. Currently patient is hemodynamycally stable. will hold off diuretics. minimal ascitic fluid noted on imaging. KUB is NEGATIVE for Ileus. (2) UTI (urinary tract infection): Plan: Suprapubic pain - although this is not unusual for her. No dysuria, No CVA tenderness. Continue cefepime pending urine (pinpoint growth) and blood cultures No change as culture has not resulted in 05/29/22 (3) RAFIQ (acute kidney injury): Plan: No obstructive cause seen on CT Suspect secondary to hypotensive episode at home and UTI as above Patient appears more hypervolemic on exam Patient reports good urine output Appreciate input from Nephro. will monitor creatinine, continue to improve on 05/31 will repeat in AM. (4) Metabolic acidosis with normal anion gap and bicarbonate losses: Plan: Normal anion gap Suspect due to RAFIQ and diarrhea Continue sodium bicarb 650mg PO BID (5) Ascites: Plan: Likely contributing towards hypoxia. Minimal ascities noted on imaging on 05/29 KUB negative for Ileus (6) Hypoxia: Plan: -Patient was on 3L NC on admission, no history of COPD and not on O2 at baseline -Lungs were clear on exam and CXR also clear -Possibly related to low lung volumes from her distended abdomen - mildly improved to 2LPM O2 today -Wean O2 as able -MRSA swab negative -Incentive spirometer (7) Leukocytosis: Plan: Now resolved Suspect stress reaction to syncope given quick resolution +/- UTI as above Patient without significant abdominal pain except suprapubic, well, appearing, normal procalcitonin, no fever or chills, therefore do not suspect spontaneous bacterial peritonitis. (8) Elevated troponin: Plan: - Suspected demand ischaemia with peak high sensitivity troponin 143 in the absence of chest pain or shortness of breath. - TTE without wall motion abnormalities - No chest pain or concerning EKG findings (9) Confusion: Plan: Secondary to hypoglycemia and UTI (10) Vomiting: Plan: -Unsure of the exact etiology at this time, nausea and vomiting has resolved for now, continue to monitor (11) Portal vein thrombosis: Plan: -Small portal vein thrombus noted on CTA on admission which was not seen on previous CT in August 2021 -Patient has not been taking her Xarelto as prescribed due to easy bruising so not considered failed therapy -Discussed with Dr Cardona. 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 with possible sepsis and recent hypotension (13) Hypoglycemia: Plan: -Resolved -No history of DM and not on antihyperglycemics -Will monitor fingerstick BSG q6h for now to be safe (14) Right middle lobe pulmonary nodule: Plan: -6 mm right middle lobe nodule noted on CTA today - Recommended to get repeat CT chest in 3 months to monitor for resolution (15) Dyslipidemia: Plan: -Not currently on a statin (16) Pulmonary emboli: Plan: -Normally on Xarelto, but only taking her Xarelto 3 times weekly because of easy bruising and bleeding -Continue Xarelto for now (17) Protein S deficiency: Plan: -See pulmonary emboli (18) Esophageal varices: Plan: -No signs of active bleeding, continue to monitor (19) Chronic diarrhea: Plan: -Follow-up with stool studies, hold antidiarrheals for now with hx of hepatic encephalopathy and current infectious workup (20) Reflux esophagitis: Plan: -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 Plan VTE Prophylaxis - Xarelto Diet - heart healthy Admission and Anticipated Discharge Date Admission Date: May 26, 2022 Subjective 66 yo female reports no new symptoms Review of Systems Review of Systems: All systems reviewed & are unremarkable except as noted in HPI & below Physical Exam Constitutional: well developed; + not well nourished and no acute distress Eyes: PERRL, conjunctivae normal, anicteric sclerae ENMT: external ear and nose normal, oropharynx normal Neck: trachea midline, no thyromegaly Respiratory: normal respiratory effort; no respiratory distress Auscultation: + diminished lung sounds (throughout posteriorly); no crackles, no rales, no rhonchi and no wheezes Cardiovascular: Rate/Rhythm: regular rate and regular rhythm Heart Sounds: no murmur Vessels: + JVD Extremities: normal capillary refill; no calf tenderness and no pedal edema Gastrointestinal (Abdomen): Inspection/Auscultation: abdomen normal to inspection, + abdomen distended and normal bowel sounds Percussion/Palpation: + abdomen tender (suprapubic) and abdomen soft; no guarding and abdomen not rigid Musculoskeletal: no cyanosis or clubbing, extremities motor strength 5/5 Skin: no rashes, warm and dry Neurologic: moves all extremities and awake; not confused Psychiatric: A+Ox3, euthymic affect Results & Data Results & [facility] ([facility]) Vital Signs (Past 12 Hours) Vital Signs Temp Pulse Pulse Resp BP BP Pulse Ox 05/31/22 15:00 36.8 C 74 20 109/53 L 93 05/31/22 16:00 75 05/31/22 11:55 36.7 C 74 20 115/63 93 05/31/22 11:00 70 05/31/22 07:00 36.7 C 75 20 116/67 94 O2 Del Method 05/31/22 15:00 Room Air 05/31/22 16:00 05/31/22 11:55 Room Air 05/31/22 11:00 05/31/22 07:00 Room Air PG Care Time/CCT Total # of Minutes Spent Total Time Spent with Patient: Total time spent is greater than 50% in coordination of care (as documented) at patient's floor/unit and/or counseling patient: Coding Level of Care Code 17309 Subseq Hosp Care Lvl 2 Diagnoses Syncope R55 UTI (urinary tract infection) N39.0 RAFIQ (acute kidney injury) N17.9 Metabolic acidosis with normal anion gap and bicarbonate losses E87.2 Ascites R18.8 Hypoxia R09.02 Leukocytosis D72.829 Elevated troponin R77.8 Confusion R41.0 Vomiting R11.10 Portal vein thrombosis I81 Cirrhosis K74.60 Hypoglycemia E16.2 Right middle lobe pulmonary nodule R91.1 Dyslipidemia E78.5 Pulmonary emboli I26.99 Protein S deficiency D68.59 Esophageal varices I85.00 Chronic diarrhea K52.9 Reflux esophagitis K21.0 Time Spent (min) 25
[2022-05-31] MEDS: CITALOPRAM 20 MG TAB PO SCH (20:05)
[2022-05-31] MEDS: RIVAROXABAN 10 MG TABLET PO SCH (20:06)
[2022-06-01 06:49] LABS: Hematocrit (blood only) 29.2 % (34.1-44.9); Mean Corpuscular Hemoglobin 25.4 pg (25.0-34.0); Mean Corpuscular Hgb Conc 30.8 g/dL (32.0-36.0); Mean Corpuscular Volume 82.5 fL (80.0-100.0); Nucleated RBC % (auto) 4.4 %; Platelet Count 91 K/uL (130-400); RDW Coefficient of Variation 17.1 % (11.5-14.5); RDW Standard Deviation 50.1 fL (36.4-46.3); Red Blood Count 3.54 M/uL (3.93-5.22); White Blood Count 4.52 K/ul (4.8-10.8)
[2022-06-01 06:57] LABS: BUN Creatinine Ratio 12.5 (10-20); Calcium 8.6 mg/dl (8.5-10.1); Creatinine Clr Calc Pharmacy 24.5 ml/min; Est GFR (African American) 31.3 ml/min; Potassium 3.3 mmol/L (3.5-5.1)
[2022-06-01] MEDS: SPIRONOLACTONE 25 MG TAB PO SCH (08:50)
[2022-06-01] MEDS: SODIUM BICARBONATE 650 MG TAB PO SCH ×2 (08:50→19:59)
[2022-06-01] MEDS: PANTOprazole 40 MG TAB PO SCH ×2 (08:50→20:29)
--- NOTE | 2022-06-01 09:33 | Nephrology Progress Note ---
Date of Service June 01, 2022 Assessment & Plan (1) RAFIQ (acute kidney injury): Plan: * RAFIQ due to intravascular volume contraction related to GI illness and IV contrast administration - now in recovery phase * Creatinine is trending down (Cr 1.92 this am). Urine volume has not been measured. Volume status and electrolyte balance are acceptable at this time * Baseline Cr 1.0 (11/12) * Continue conservative medical care, avoid known nephrotoxic agents, monitor UO , monitor PRP (2) Metabolic acidosis with normal anion gap and bicarbonate losses: Plan: * Continue NaHCO3 650 mg po BID (3) Anemia: Plan: * Patient reports one bloody BM last evening * H&H remains stable * On Venofer 200 mg IV daily - day #3 of 5 (4) Cirrhosis: Plan: * Patient appears cachectic with marked abdominal distention. On exam there is no abdominal fluid wave. 05/26/[address] films - L lobe of liver is enlarged and extends past midline. Patient has marked splenomegally Admission and Anticipated Discharge Date Admission Date: May 26, 2022 Subjective Mrs. Roy was evaluated in her hospital room this morning. She reports one bloody BM overnight but denies abdominal discomfort. Mrs. Roy does report brisk UO. She denies uremic symptoms Review of Systems Constitutional: no fever Eyes: no problem reported Ear, Nose, Mouth, Throat: no problem reported Respiratory: no cough and no dyspnea Cardiovascular: no chest pain Gastrointestinal: + bloating; no abdominal pain Genitourinary: no dysuria Physical Exam Constitutional: + thin; not in distress Eyes: PERRL, conjunctivae normal, anicteric sclerae ENMT: external ear and nose normal, oropharynx normal Neck: trachea midline, no thyromegaly Respiratory: normal respiratory effort, lungs clear to auscultation Cardiovascular: RRR, no murmur, no edema Gastrointestinal (Abdomen): Inspection/Auscultation: + abdomen distended and + hypoactive bowel sounds Results & Data ([facility]) Vital Signs (Past 12 Hours) Vital Signs Temp Pulse Pulse Resp BP BP Pulse Ox 06/01/22 09:09 78 16 112/71 95 06/01/22 08:00 80 06/01/22 03:00 36.7 C 83 16 111/67 93 06/01/22 00:00 76 05/31/22 22:49 36.3 C L 79 16 124/66 96 O2 Del Method 06/01/22 09:09 Room Air 06/01/22 08:00 06/01/22 03:00 Room Air 06/01/22 00:00 05/31/22 22:49 Room Air Laboratory Results Laboratory Tests 11/05/21 05/28/22 05/29/22 10:46 05:22 05:38 WBC Hgb Hct Plt Count Sodium Potassium Chloride Carbon Dioxide BUN Creatinine 1.07 2.72 H D 2.59 H Calcium 05/30/22 05/31/22 06/01/22 04:33 05:26 05:33 WBC Hgb Hct Plt Count Sodium 139 Potassium 3.3 L Chloride 113 H Carbon Dioxide 20 L BUN 24 H Creatinine 2.24 H D 2.07 H 1.92 H Calcium 8.6 06/01/22 05:33 WBC 4.52 L Hgb 9.0 L Hct 29.2 L Plt Count 91 L Sodium Potassium Chloride Carbon Dioxide BUN Creatinine Calcium PG Care Time/CCT Total # of Minutes Spent Total Time Spent with Patient: Total time spent is greater than 50% in coordination of care (as documented) at patient's floor/unit and/or counseling patient: Coding Level of Care Code 33537 Subseq Hosp Care Lvl 3 Diagnoses RAFIQ (acute kidney injury) N17.9 Metabolic acidosis with normal anion gap and bicarbonate losses E87.2 Anemia D64.9 Cirrhosis K74.60
[2022-06-01] MEDS: IRON SUCROSE 200 MG in 0.9 % SODIUM CHLORIDE 100 ML IV SCH (09:50)
[2022-06-01] MEDS: RIVAROXABAN 10 MG TABLET PO SCH (20:29)
[2022-06-01] MEDS: CITALOPRAM 20 MG TAB PO SCH (20:29)
--- NOTE | 2022-06-01 22:26 | Hospitalist Progress Note ---
Date of Service June 01, 2022 Assessment & Plan (1) Syncope: Plan: Suspect due to propranolol and lasix use in setting of UTI/diarrhea. Continue to maintain MAP > 65. Hold propranolol. Given that patient has cirrhosis, patient will benefit from lasix and spironol oactone. Currently patient is hemodynamycally stable. will hold off diuretics. minimal ascitic fluid noted on imaging. KUB is NEGATIVE for Ileus. will consider resuming propranolo, perhaps on 06/02 (2) UTI (urinary tract infection): Plan: Suprapubic pain - although this is not unusual for her. No dysuria, No CVA tenderness. Continue cefepime pending urine (pinpoint growth) and blood cultures No change as culture has not resulted in 05/29/22 (3) RAFIQ (acute kidney injury): Plan: No obstructive cause seen on CT Suspect secondary to hypotensive episode at home and UTI as above Patient appears more hypervolemic on exam Patient reports good urine output Appreciate input from Nephro. will monitor creatinine, continue to improve on 05/31 will repeat in AM. (4) Metabolic acidosis with normal anion gap and bicarbonate losses: Plan: Normal anion gap Suspect due to RAFIQ and diarrhea Continue sodium bicarb 650mg PO BID (5) Ascites: Plan: Likely contributing towards hypoxia. Minimal ascities noted on imaging on 05/29 KUB negative for Ileus (6) Hypoxia: Plan: -Patient was on 3L NC on admission, no history of COPD and not on O2 at baseline -Lungs were clear on exam and CXR also clear -Possibly related to low lung volumes from her distended abdomen - mildly improved to 2LPM O2 today -Wean O2 as able -MRSA swab negative -Incentive spirometer (7) Leukocytosis: Plan: Now resolved Suspect stress reaction to syncope given quick resolution +/- UTI as above Patient without significant abdominal pain except suprapubic, well, appearing, normal procalcitonin, no fever or chills, therefore do not suspect spontaneous bacterial peritonitis. (8) Elevated troponin: Plan: - Suspected demand ischaemia with peak high sensitivity troponin 143 in the absence of chest pain or shortness of breath. - TTE without wall motion abnormalities - No chest pain or concerning EKG findings (9) Confusion: Plan: Secondary to hypoglycemia and UTI (10) Vomiting: Plan: -Unsure of the exact etiology at this time, nausea and vomiting has resolved for now, continue to monitor (11) Portal vein thrombosis: Plan: -Small portal vein thrombus noted on CTA on admission which was not seen on previous CT in August 2021 -Patient has not been taking her Xarelto as prescribed due to easy bruising so not considered failed therapy -Discussed with Dr Cardona. 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 with possible sepsis and recent hypotension (13) Hypoglycemia: Plan: -Resolved -No history of DM and not on antihyperglycemics -Will monitor fingerstick BSG q6h for now to be safe (14) Right middle lobe pulmonary nodule: Plan: -6 mm right middle lobe nodule noted on CTA today - Recommended to get repeat CT chest in 3 months to monitor for resolution (15) Dyslipidemia: Plan: -Not currently on a statin (16) Pulmonary emboli: Plan: -Normally on Xarelto, but only taking her Xarelto 3 times weekly because of easy bruising and bleeding -Continue Xarelto for now (17) Protein S deficiency: Plan: -See pulmonary emboli (18) Esophageal varices: Plan: -No signs of active bleeding, continue to monitor (19) Chronic diarrhea: Plan: -Follow-up with stool studies, hold antidiarrheals for now with hx of hepatic encephalopathy and current infectious workup (20) Reflux esophagitis: Plan: -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 She has no longer had an episode since. Review of Systems Review of Systems: All systems reviewed & are unremarkable except as noted in HPI & below Physical Exam Constitutional: well developed; + not well nourished and no acute distress Eyes: PERRL, conjunctivae normal, anicteric sclerae ENMT: external ear and nose normal, oropharynx normal Neck: trachea midline, no thyromegaly Respiratory: normal respiratory effort; no respiratory distress Auscultation: + diminished lung sounds (throughout posteriorly); no crackles, no rales, no rhonchi and no wheezes Cardiovascular: Rate/Rhythm: regular rate and regular rhythm Heart Sounds: no murmur Vessels: + JVD Extremities: normal capillary refill; no calf tenderness and no pedal edema Gastrointestinal (Abdomen): Inspection/Auscultation: abdomen normal to inspection, + abdomen distended and normal bowel sounds Percussion/Palpation: + abdomen tender (suprapubic) and abdomen soft; no guarding and abdomen not rigid Musculoskeletal: no cyanosis or clubbing, extremities motor strength 5/5 Skin: no rashes, warm and dry Neurologic: moves all extremities and awake; not confused Psychiatric: A+Ox3, euthymic affect Results & Data Results & Data ([facility]) Vital Signs (Past 12 Hours) Vital Signs Temp Pulse Pulse Resp BP BP Pulse Ox 06/01/22 19:00 36.9 C 79 16 114/59 L 94 06/01/22 16:00 72 06/01/22 15:29 36.7 C 78 18 106/66 92 06/01/22 13:00 36.6 C 76 17 119/63 95 O2 Del Method 06/01/22 19:00 Room Air 06/01/22 16:00 06/01/22 15:29 Room Air 06/01/22 13:00 Room Air PG Care Time/CCT Total # of Minutes Spent Total Time Spent with Patient: Total time spent is greater than 50% in coordination of care (as documented) at patient's floor/unit and/or counseling patient: Coding Level of Care Code 98123 Subseq Hosp Care Lvl 2 Diagnoses Syncope R55 UTI (urinary tract infection) N39.0 RAFIQ (acute kidney injury) N17.9 Metabolic acidosis with normal anion gap and bicarbonate losses E87.2 Ascites R18.8 Hypoxia R09.02 Leukocytosis D72.829 Elevated troponin R77.8 Confusion R41.0 Vomiting R11.10 Portal vein thrombosis I81 Cirrhosis K74.60 Hypoglycemia E16.2 Right middle lobe pulmonary nodule R91.1 Dyslipidemia E78.5 Pulmonary emboli I26.99 Protein S deficiency D68.59 Esophageal varices I85.00 Chronic diarrhea K52.9 Reflux esophagitis K21.0 Time Spent (min) 25
[2022-06-02] MEDS ORDERED: traMADol HCL 50 MG TABLET PO STA (02:53)
[2022-06-02 06:23] LABS: BUN Creatinine Ratio 14.3 (10-20); Calcium 8.3 mg/dl (8.5-10.1); Est GFR (African American) 36.8 ml/min; Est GFR (Non-African American) 31.8 ml/min; Potassium 3.1 mmol/L (3.5-5.1)
[2022-06-02 06:35] LABS: Hematocrit (blood only) 28.8 % (34.1-44.9); Hemoglobin 8.9 g/dl (12.0-16.0); Mean Corpuscular Hemoglobin 25.3 pg (25.0-34.0); Mean Corpuscular Hgb Conc 30.9 g/dL (32.0-36.0); Mean Corpuscular Volume 81.8 fL (80.0-100.0); Nucleated RBC # (auto) 0.41 K/uL (0-0); Nucleated RBC % (auto) 8.1 %; Platelet Count 114 K/uL (130-400); RDW Coefficient of Variation 17.3 % (11.5-14.5); RDW Standard Deviation 49.4 fL (36.4-46.3); Red Blood Count 3.52 M/uL (3.93-5.22); White Blood Count 5.05 K/ul (4.8-10.8)
[2022-06-02 06:39] LABS: Magnesium 1.5 mg/dl (1.7-2.4); Platelet Estimate Decreased (Normal)
[2022-06-02] MEDS ORDERED: POTASSIUM CHLORIDE CRTAB 20 MEQ TABCR PO STA (06:43)
[2022-06-02] MEDS ORDERED: POTASSIUM PHOS 3 MMOL/1 ML INFUSION IV STA ×2 (06:43→14:48)
[2022-06-02] MEDS ORDERED: POTASSIUM PHOSPHATE 30 MMOL in SODIUM CHLORIDE 0.9% 500 ML IV ONE (07:00)
[2022-06-02] MEDS: MAGNESIUM SULFATE / D5W 1 GM/100 ML BAG IV SCH ×2 (07:34→09:34)
[2022-06-02] MEDS: IRON SUCROSE 200 MG in 0.9 % SODIUM CHLORIDE 100 ML IV SCH (08:23)
[2022-06-02] MEDS: SPIRONOLACTONE 25 MG TAB PO SCH (08:42)
[2022-06-02] MEDS: PANTOprazole 40 MG TAB PO SCH ×2 (08:42→19:45)
[2022-06-02] MEDS: SODIUM BICARBONATE 650 MG TAB PO SCH ×2 (08:43→19:48)
--- NOTE | 2022-06-02 08:45 | Nephrology Progress Note ---
Date of Service June 02, 2022 Assessment & Plan (1) RAFIQ (acute kidney injury): Plan: * RAFIQ due to intravascular volume contraction related to GI illness and IV contrast administration - now in recovery phase * Creatinine is trending down (Cr 1.68 this am) * Baseline Cr 1.0 (11/12) * Primary service has ordered KPO4 supplementation * Continue conservative medical care, avoid known nephrotoxic agents, monitor UO, monitor PRP (2) Metabolic acidosis with normal anion gap and bicarbonate losses: Plan: * Continue NaHCO3 650 mg po BID (3) Anemia: Plan: * H&H remains stable * On Venofer 200 mg IV daily - day #4 of 5 (4) Cirrhosis: Plan: * Patient appears cachectic with marked abdominal distention. On exam there is no abdominal fluid wave. 05/26/[address] films - L lobe of liver is enlarged and extends past midline. Patient has marked splenomegally Admission and Anticipated Discharge Date Admission Date: May 26, 2022 Subjective Mrs. Roy was evaluated in her hospital room this morning. She reports abdominal distention but voices no other concerns. She is breathing comfortably on RA Review of Systems Constitutional: no fever Eyes: no problem reported Ear, Nose, Mouth, Throat: no problem reported Respiratory: no cough and no dyspnea Cardiovascular: no chest pain Gastrointestinal: + bloating; no abdominal pain Genitourinary: no dysuria Physical Exam Constitutional: + thin; not in distress Eyes: PERRL, conjunctivae normal, anicteric sclerae ENMT: external ear and nose normal, oropharynx normal Neck: trachea midline, no thyromegaly Respiratory: normal respiratory effort, lungs clear to auscultation Cardiovascular: RRR, no murmur, no edema Gastrointestinal (Abdomen): Inspection/Auscultation: + abdomen distended and + hypoactive bowel sounds Results & Data ([facility]) Vital Signs (Past 12 Hours) Vital Signs Temp Pulse Pulse Resp BP Pulse Ox O2 Del Method 06/02/22 07:51 36.5 C 82 16 120/77 93 Room Air 06/02/22 07:19 75 06/02/22 02:54 36.6 C 78 20 112/68 93 Room Air 06/02/22 01:54 72 06/01/22 22:49 36.6 C 78 20 111/75 95 Room Air Laboratory Results Laboratory Tests 06/02/22 06/02/22 05:22 05:22 WBC 5.05 Hgb 8.9 L Hct 28.8 L Plt Count 114 L Sodium 138 Potassium 3.1 L Chloride 113 H Carbon Dioxide 18 L BUN 24 H Creatinine 1.68 H Calcium 8.3 L Phosphorus 1.0 L* Magnesium 1.5 L PG Care Time/CCT Total # of Minutes Spent Total Time Spent with Patient: Total time spent is greater than 50% in coordination of care (as documented) at patient's floor/unit and/or counseling patient: Coding Level of Care Code 25051 Subseq Hosp Care Lvl 3 Diagnoses RAFIQ (acute kidney injury) N17.9 Metabolic acidosis with normal anion gap and bicarbonate losses E87.2 Anemia D64.9 Cirrhosis K74.60
[2022-06-02 18:35] LABS: BUN Creatinine Ratio 13.1 (10-20); Calcium 8.3 mg/dl (8.5-10.1); Creatinine Clr Calc Pharmacy 26.9 ml/min; Est GFR (African American) 35.1 ml/min; Est GFR (Non-African American) 30.2 ml/min; Potassium 3.8 mmol/L (3.5-5.1)
[2022-06-02] MEDS: CITALOPRAM 20 MG TAB PO SCH (19:44)
[2022-06-02] MEDS: PROPRANOLOL HCL 10 MG TAB PO SCH (19:46)
[2022-06-02] MEDS: RIVAROXABAN 10 MG TABLET PO SCH (19:47)
[2022-06-02] MEDS ORDERED: PROPRANOLOL HCL 10 MG TAB PO SCH (21:00)
--- NOTE | 2022-06-02 22:21 | Hospitalist Progress Note ---
Date of Service June 02, 2022 Assessment & Plan (1) Syncope: Plan: Suspect due to propranolol and lasix use in setting of UTI/diarrhea. Continue to maintain MAP > 65. Hold propranolol. Given that patient has cirrhosis, patient will benefit from lasix and spironol oactone. Currently patient is hemodynamycally stable. will hold off diuretics. minimal ascitic fluid noted on imaging. KUB is NEGATIVE for Ileus. resuming propranolol BID on 06/02 (2) UTI (urinary tract infection): Plan: Suprapubic pain - although this is not unusual for her. No dysuria, No CVA tenderness. Continue cefepime pending urine (pinpoint growth) and blood cultures No change as culture has not resulted in 05/29/22 (3) RAFIQ (acute kidney injury): Plan: No obstructive cause seen on CT Suspect secondary to hypotensive episode at home and UTI as above Patient appears more hypervolemic on exam Patient reports good urine output Appreciate input from Nephro. will monitor creatinine, continue to improve on 05/31 will repeat in AM. (4) Metabolic acidosis with normal anion gap and bicarbonate losses: Plan: Normal anion gap Suspect due to RAFIQ and diarrhea Continue sodium bicarb 650mg PO BID (5) Ascites: Plan: Likely contributing towards hypoxia. Minimal ascities noted on imaging on 05/29 KUB negative for Ileus (6) Hypoxia: Plan: -Patient was on 3L NC on admission, no history of COPD and not on O2 at baseline -Lungs were clear on exam and CXR also clear -Possibly related to low lung volumes from her distended abdomen - mildly improved to 2LPM O2 today -Wean O2 as able -MRSA swab negative -Incentive spirometer (7) Leukocytosis: Plan: Now resolved Suspect stress reaction to syncope given quick resolution +/- UTI as above Patient without significant abdominal pain except suprapubic, well, appearing, normal procalcitonin, no fever or chills, therefore do not suspect spontaneous bacterial peritonitis. (8) Elevated troponin: Plan: - Suspected demand ischaemia with peak high sensitivity troponin 143 in the absence of chest pain or shortness of breath. - TTE without wall motion abnormalities - No chest pain or concerning EKG findings (9) Confusion: Plan: Secondary to hypoglycemia and UTI (10) Vomiting: Plan: -Unsure of the exact etiology at this time, nausea and vomiting has resolved for now, continue to monitor (11) Portal vein thrombosis: Plan: -Small portal vein thrombus noted on CTA on admission which was not seen on previous CT in August 2021 -Patient has not been taking her Xarelto as prescribed due to easy bruising so not considered failed therapy -Discussed with Dr Cardona. No need for hematology consult at present time (12) Cirrhosis: Plan: -Does not appear to be in acute liver failure or hepatic encephalopathy -Was taken off Spironolactone and Lactulose previously -Hold VISCOSITY TESTER lasix for now with possible sepsis and recent hypotension (13) Hypoglycemia: Plan: -Resolved -No history of DM and not on antihyperglycemics -Will monitor fingerstick BSG q6h for now to be safe (14) Right middle lobe pulmonary nodule: Plan: -6 mm right middle lobe nodule noted on CTA today - Recommended to get repeat CT chest in 3 months to monitor for resolution (15) Dyslipidemia: Plan: -Not currently on a statin (16) Pulmonary emboli: Plan: -Normally on Xarelto, but only taking her Xarelto 3 times weekly because of easy bruising and bleeding -Continue Xarelto for now (17) Protein S deficiency: Plan: -See pulmonary emboli (18) Esophageal varices: Plan: -No signs of active bleeding, continue to monitor (19) Chronic diarrhea: Plan: -Follow-up with stool studies, hold antidiarrheals for now with hx of hepatic encephalopathy and current infectious workup (20) Reflux esophagitis: Plan: -VISCOSITY TESTER 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 Plan VTE Prophylaxis - Xarelto Diet - heart healthy Admission and Anticipated Discharge Date Admission Date: May 26, 2022 Subjective 66 yo female reports no new episodes of red blood in stool. Review of Systems Review of Systems: All systems reviewed & are unremarkable except as noted in HPI & below Physical Exam Constitutional: well developed; + not well nourished and no acute distress Eyes: PERRL, conjunctivae normal, anicteric sclerae ENMT: external ear and nose normal, oropharynx normal Neck: trachea midline, no thyromegaly Respiratory: normal respiratory effort; no respiratory distress Auscultation: + diminished lung sounds (throughout posteriorly); no crackles, no rales, no rhonchi and no wheezes Cardiovascular: Rate/Rhythm: regular rate and regular rhythm Heart Sounds: no murmur Vessels: + JVD Extremities: normal capillary refill; no calf tenderness and no pedal edema Gastrointestinal (Abdomen): Inspection/Auscultation: abdomen normal to inspection, + abdomen distended and normal bowel sounds Percussion/Palpation: + abdomen tender (suprapubic) and abdomen soft; no guarding and abdomen not rigid Musculoskeletal: no cyanosis or clubbing, extremities motor strength 5/5 Skin: no rashes, warm and dry Neurologic: moves all extremities and awake; not confused Psychiatric: A+Ox3, euthymic affect Results & Data Results & Data ([facility]) Vital Signs (Past 12 Hours) Vital Signs Temp Pulse Pulse Resp BP BP Pulse Ox 06/02/22 19:07 36.5 C 74 18 123/72 97 06/02/22 16:00 72 06/02/22 15:00 36.8 C 79 18 110/64 93 06/02/22 11:00 36.5 C 78 18 111/63 92 O2 Del Method 06/02/22 19:07 Room Air 06/02/22 16:00 06/02/22 15:00 Room Air 06/02/22 11:00 Room Air PG Care Time/CCT Total # of Minutes Spent Total Time Spent with Patient: Total time spent is greater than 50% in coordination of care (as documented) at patient's floor/unit and/or counseling patient: Coding Level of Care Code 49698 Subseq Hosp Care Lvl 2 Diagnoses Syncope R55 UTI (urinary tract infection) N39.0 RAFIQ (acute kidney injury) N17.9 Metabolic acidosis with normal anion gap and bicarbonate losses E87.2 Ascites R18.8 Hypoxia R09.02 Leukocytosis D72.829 Elevated troponin R77.8 Confusion R41.0 Vomiting R11.10 Portal vein thrombosis I81 Cirrhosis K74.60 Hypoglycemia E16.2 Right middle lobe pulmonary nodule R91.1 Dyslipidemia E78.5 Pulmonary emboli I26.99 Protein S deficiency D68.59 Esophageal varices I85.00 Chronic diarrhea K52.9 Reflux esophagitis K21.0 Time Spent (min) 25
[2022-06-03 06:38] LABS: BUN Creatinine Ratio 13.1 (10-20); Calcium 8.2 mg/dl (8.5-10.1); Creatinine Clr Calc Pharmacy 26.7 ml/min; Est GFR (African American) 34.8 ml/min; Potassium 3.4 mmol/L (3.5-5.1)
[2022-06-03 06:43] LABS: Hematocrit (blood only) 29.4 % (34.1-44.9); Mean Corpuscular Hgb Conc 30.6 g/dL (32.0-36.0); Mean Corpuscular Volume 81.7 fL (80.0-100.0); Nucleated RBC # (auto) 0.67 K/uL (0-0); Platelet Count 128 K/uL (130-400); RDW Coefficient of Variation 17.8 % (11.5-14.5); RDW Standard Deviation 50.1 fL (36.4-46.3); White Blood Count 6.08 K/ul (4.8-10.8)
[2022-06-03] MEDS: IRON SUCROSE 200 MG in 0.9 % SODIUM CHLORIDE 100 ML IV SCH (08:04)
[2022-06-03] MEDS: PANTOprazole 40 MG TAB PO SCH (08:06)
[2022-06-03] MEDS: SPIRONOLACTONE 25 MG TAB PO SCH (08:06)
[2022-06-03] MEDS: SODIUM BICARBONATE 650 MG TAB PO SCH (08:06)
[2022-06-03] MEDS: PROPRANOLOL HCL 10 MG TAB PO SCH (08:09)
--- NOTE | 2022-06-03 08:50 | Nephrology Progress Note ---
Date of Service June 03, 2022 Assessment & Plan (1) RAFIQ (acute kidney injury): Plan: * RAFIQ due to intravascular volume contraction related to GI illness and IV contrast administration - now in recovery phase * Kidney function has stabilized w/ Cr 1.7 * Baseline Cr 1.0 (11/12) * Continue conservative medical care, avoid known nephrotoxic agents, monitor UO, monitor PRP * If discharge is anticipated, patient may follow up w/ PCP for monitoring of liver and kidney function (2) Metabolic acidosis with normal anion gap and bicarbonate losses: Plan: * Continue NaHCO3 650 mg po BID (3) Anemia: Plan: * H&H remains stable * On Venofer 200 mg IV daily - day #5 of 5 (4) Cirrhosis: Plan: * Patient appears cachectic with marked abdominal distention. On exam there is no abdominal fluid wave. 05/26/[address] films - L lobe of liver is enlarged and extends past midline. Patient has marked splenomegally * Recommend outpatient follow up with [facility] Gastroenterology/Hepatology to review further therapeutic options Admission and Anticipated Discharge Date Admission Date: May 26, 2022 Subjective Mrs. Roy was evaluated in her hospital room this morning. She reports abdominal distention but voices no other concerns. She is breathing comfortably on RA Review of Systems Constitutional: no fever Eyes: no problem reported Ear, Nose, Mouth, Throat: no problem reported Respiratory: no cough and no dyspnea Cardiovascular: no chest pain Gastrointestinal: + bloating; no abdominal pain Genitourinary: no dysuria Physical Exam Constitutional: + thin; not in distress Eyes: PERRL, conjunctivae normal, anicteric sclerae ENMT: external ear and nose normal, oropharynx normal Neck: trachea midline, no thyromegaly Respiratory: normal respiratory effort, lungs clear to auscultation Cardiovascular: RRR, no murmur, no edema Gastrointestinal (Abdomen): Inspection/Auscultation: + abdomen distended and + hypoactive bowel sounds Results & Data ([facility]) Vital Signs (Past 12 Hours) Vital Signs Temp Pulse Pulse Resp BP BP Pulse Ox 06/03/22 07:00 36.5 C 71 18 126/67 94 06/03/22 03:47 36.6 C 69 20 100/59 L 92 06/02/22 23:59 72 06/02/22 23:00 36.6 C 71 20 118/72 94 O2 Del Method 06/03/22 07:00 Room Air 06/03/22 03:47 Room Air 06/02/22 23:59 06/02/22 23:00 Room Air PG Care Time/CCT Total # of Minutes Spent Total Time Spent with Patient: Total time spent is greater than 50% in coordination of care (as documented) at patient's floor/unit and/or counseling patient: Coding Level of Care Code 85442 Subseq Hosp Care Lvl 3 Diagnoses RAFIQ (acute kidney injury) N17.9 Metabolic acidosis with normal anion gap and bicarbonate losses E87.2 Anemia D64.9 Cirrhosis K74.60
--- NOTE | 2022-06-09 16:21 | Discharge Summary ---
Date of Service June 03, 2022 Admission HPI Per Admitting Provider Belgica is a 66 year old female with a PMH significant for Cirrhosis with portal hypertension/splenomegaly/gastric varices/ascites/hepatic encephalopathy on the transplant list in [facility], myelodysplastic syndrome, previous PE on Xarelto, bradycardic cardiac arrest and GERD who presented to the [facility] ED on 05/26/22 with a chief complaint of syncope. Per EMS, the patient was noted to be hypotensive with systolic BP in the 80's, they gave her 2L NSS prior to arrival. She was noted to have a significant Leukocytosis of 39.56, with left shift of 10.63, thrombocytosis of 466, elevated WBC lines, hypernatremia of 145, Cr of 1.55, glucose of 63, calcium of 7.4, total bili of 1.8, AST of 65, alk phos of 207, troponin of 41.9. Chest xray was negative for acute findings. CT of the abdomen/pelvis with IV contrast showed a small amount of nonocclusive thrombus within the proximal left portal vein new from Aug 2021, Cirrhotic liver with stable splenomegaly and varices, a small amount of abdominal and pelvic ascites, a 6mm right middle lobe nodule, cholelithiasis with gallbladder wall thickening but a nondistended gallbladder, In the ED the patient was given tylenol, 1L NSS, cefepime, and zofran. At the time of the exam the patient was resting in bed in no acute distress. She states that she was feeling ill and somewhat confused this am so she called EMS. She states that she does not remember calling EMS however and her was out golfing so she was by herself. She states that she has been dealing with chronic lower abdominal pain and diarrhea for the past year. She has approximately 10-15 episodes of diarrhea with mucus daily but denies bloody bowel movements and melena. She does note some blood on the toilet paper when she wipes but again confirmed that she does not see blood in her stool or the toilet bowel. She states that she has only been taking her Xarelto three times weekly because she bleeds too easily if she takes it daily as it was prescribed. She was following with Dr. Vergara in hematology here prior to him leaving approximately 6 months ago; he was the one who started her on Jakafi for her myelodysplastic syndrome. She had one paracentesis in the past and it was approximately 6 months ago in the [facility] ED. She states she was taken off of her PHOTO RETOUCHER lactulose previously because of her chronic diarrhea. In the ED the patient vomited multiple times and she is unsure if she chocked or aspirated during these episodes. She does feeling her symptoms have improved compared to when she arrived to the ED. She denies recent fevers or chills, headache, changes in vision, hearing, taste, and smell, chest pain, SOB, new abdominal pain, dysuria, hematuria, urianry frequency, increased LE swelling, and recent falls. Per chart review, the patient was admitted to [facility] in August 2021 with upper GI bleed. She was monitored and her Hgb was noted to be stable, GI did not feel that an EGD was needed at that time. Principal Diagnosis syncope Discharge Exam Constitutional well developed; + not well nourished and no acute distress Eyes PERRL, conjunctivae normal, anicteric sclerae ENMT external ear and nose normal, oropharynx normal Neck trachea midline, no thyromegaly Respiratory normal respiratory effort; no respiratory distress Auscultation: + diminished lung sounds (throughout posteriorly); no crackles, no rales, no rhonchi and no wheezes Cardiovascular Rate/Rhythm: regular rate and regular rhythm Heart Sounds: no murmur Vessels: + JVD Extremities: normal capillary refill; no calf tenderness and no pedal edema Gastrointestinal (Abdomen) Inspection/Auscultation: abdomen normal to inspection, + abdomen distended and normal bowel sounds Percussion/Palpation: + abdomen tender (suprapubic) and abdomen soft; no guarding and abdomen not rigid Musculoskeletal no cyanosis or clubbing, extremities motor strength 5/5 Skin no rashes, warm and dry Neurologic moves all extremities and awake; not confused Psychiatric A+Ox3, euthymic affect Discharge Data Allergies Allergy/AdvReac Type Severity Reaction Status Date / Time No Known Allergies Allergy Verified 05/26/22 20:32 Consultations 05/26/22 19:18 ED Decision to Admit Stat 05/28/22 08:11 Consult Nephrology Routine Ordered Studies 05/26/22 16:10 CT abd pelvis IV con only Stat 05/28/22 12:01 US venous doppler LE LT Routine 05/29/22 US abdomen ltd ascites Routine Hospital Course (1) Syncope: Suspect due to propranolol and lasix use in setting of UTI/diarrhea. Continue to maintain MAP > 65. Hold propranolol. Given that patient has cirrhosis, patient will benefit from lasix and spiron oloactone. Currently patient is hemodynamycally stable. will hold off diuretics even at discharge as minimal ascitic fluid noted on imaging. KUB is NEGATIVE for Ileus. resuming propranolol BID on 06/02 Will recommend close followup for liver and renal testing with PCP and political organizer (2) UTI (urinary tract infection): Suprapubic pain - although this is not unusual for her. No dysuria, No CVA tenderness. Continue cefepime pending urine (pinpoint growth) and blood cultures No change as culture has not resulted in 05/29/22 (3) RAFIQ (acute kidney injury): No obstructive cause seen on CT Suspect secondary to hypotensive episode at home and UTI as above Patient appears more hypervolemic on exam Patient reports good urine output Appreciate input from Nephro. creatinine improved as diuretics were held (4) Metabolic acidosis with normal anion gap and bicarbonate losses: Normal anion gap Suspect due to RAFIQ and diarrhea Continue sodium bicarb 650mg PO BID (5) Ascites: Likely contributing towards hypoxia. Minimal ascities noted on imaging on 05/29 KUB negative for Ileus (6) Hypoxia: -Patient was on 3L NC on admission, no history of COPD and not on O2 at baseline -Lungs were clear on exam and CXR also clear -Possibly related to low lung volumes from her distended abdomen - mildly improved to 2LPM O2 today -Wean O2 as able -MRSA swab negative -Incentive spirometer (7) Leukocytosis: Now resolved Suspect stress reaction to syncope given quick resolution +/- UTI as above Patient without significant abdominal pain except suprapubic, well, appearing, normal procalcitonin, no fever or chills, therefore do not suspect spontaneous bacterial peritonitis. (8) Elevated troponin: - Suspected demand ischaemia with peak high sensitivity troponin 143 in the absence of chest pain or shortness of breath. - TTE without wall motion abnormalities - No chest pain or concerning EKG findings (9) Confusion: Secondary to hypoglycemia and UTI (10) Vomiting: -Unsure of the exact etiology at this time, nausea and vomiting has resolved for now, continue to monitor (11) Portal vein thrombosis: -Small portal vein thrombus noted on CTA on admission which was not seen on previous CT in August 2021 -Patient has not been taking her Xarelto as prescribed due to easy bruising so not considered failed therapy -Discussed with Dr Cardona. No need for hematology consult at present time (12) Cirrhosis: -Does not appear to be in acute liver failure or hepatic encephalopathy -Was taken off Spironolactone and Lactulose previously -Hold PHOTO RETOUCHER lasix for now with possible sepsis and recent hypotension (13) Hypoglycemia: -Resolved -No history of DM and not on antihyperglycemics -Will monitor fingerstick BSG q6h for now to be safe (14) Right middle lobe pulmonary nodule: -6 mm right middle lobe nodule noted on CTA today - Recommended to get repeat CT chest in 3 months to monitor for resolution (15) Dyslipidemia: -Not currently on a statin (16) Pulmonary emboli: -Normally on Xarelto, but only taking her Xarelto 3 times weekly because of easy bruising and bleeding -Continue Xarelto for now (17) Protein S deficiency: -See pulmonary emboli (18) Esophageal varices: -No signs of active bleeding, continue to monitor (19) Chronic diarrhea: -Follow-up with stool studies, hold antidiarrheals for now with hx of hepatic encephalopathy and current infectious workup (20) Reflux esophagitis: -PHOTO RETOUCHER 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 Plan VTE Prophylaxis - Xarelto Diet - heart healthy Total Time Total Time Spent Total Time Spent (In Minutes): 35 Discharge Plan Discharge Items Patient Disposition: Home - Self-Care Reason For Visit: AMS Discharge Diagnosis: Altered mental status Activity: Resume your previous activity Non-emergency contact: Primary Care Provider Call non-emergency contact if: you have any medication questions Follow-up/Referrals: Shira Yarbrough MD [Primary Care Provider] - 06/16/22 10:20 am Diet: Heart Healthy Addtl Attending Provider Instructions: Good afternoon Mrs. Roy, You were admitted with UTI and dehydration. We held your propranolol initially due to low blood pressures. Thankfully, your pressures improved. We will hold your diuretics as imaging does show any evidence of fluid in your abdomen. Will recommend cutting back the propranolol to twice a day dosing, to limit risk of low blood pressure. As stated above you seen for a UTI and was treated with cefepime. Will recommend that you followup with your PCP in 1-2 weeks to recheck your kidney and liver numbers Also recommend that you followup with Dr. Cardona the Oncologist who replaced Dr. Vergara. I will send her a message. Also followup with your Liver/GI doctors to discuss continuing diuretics in the future, for now please hold spironolactone and lasix. For the next week, we will replenish your magnesium and phosphorus. Will also order blood work to assure that your levels remain normal. It was a pleasure taking care of you. Wish you the best. Kindest regards, Alfonso Del Rosario Pending Studies at Discharge: No Stand-Alone Forms: My [facility] [email or web address], Smoking Cessation Medications and DC Order Prescriptions: New sodium bicarbonate 650 mg Tablet 650 mg PO BID Qty: 60 0RF Phospha 250 Neutral 250 mg tablet 1 tab PO BID Qty: 14 0RF magnesium oxide 500 mg capsule 500 mg PO DAILY Qty: 7 0RF Continued Xarelto 10 mg tablet 10 mg PO QPM Qty: 90 1RF 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 40 mg tablet,delayed release (DR/EC) 40 mg PO BID Qty: 180 1RF citalopram [Celexa] 20 mg tablet 30 mg PO HS Qty: 135 1RF cholecalciferol (vitamin D3) [Vitamin D3] 2,000 unit Capsule 2,000 unit PO HS Changed propranolol 10 mg tablet 10 mg PO BID Qty: 270 1RF Discontinued furosemide 20 mg tablet 40 mg PO QAM Discharge Orders: Discharge Order (Routine); Ordered 06/03/22 Ordered By: Alfonso Del Rosario Admission Data Admit Date/Time: 05/26/22 20:27 Attending Provider: Alfonso Del Rosario Admit Provider: Raina Ndiaye Primary Care Provider: Shira Yarbrough Other Providers: Raina Ndiaye ; Lory Luong Other Interventions: Discharge Summary Assessment (RN) Last Done: 06/03/22 16:40 Coding Level of Care Code D/C DAY MANAGEMENT >30 MINS Diagnoses Syncope R55 UTI (urinary tract infection) N39.0 RAFIQ (acute kidney injury) N17.9 Metabolic acidosis with normal anion gap and bicarbonate losses E87.2 Ascites R18.8 Hypoxia R09.02 Leukocytosis D72.829 Elevated troponin R77.8 Confusion R41.0 Vomiting R11.10 Portal vein thrombosis I81 Cirrhosis K74.60 Hypoglycemia E16.2 Right middle lobe pulmonary nodule R91.1 Dyslipidemia E78.5 Pulmonary emboli I26.99 Protein S deficiency D68.59 Esophageal varices I85.00 Chronic diarrhea K52.9 Reflux esophagitis K21.0
--- NOTE | 2022-06-12 11:42 | Coding Query ---
CODING QUERY To promote full compliance with coding requirements relating to patient care, provider participation is requested in all cases of road mechanic uncertainty. Please assist us with the question(s) below: Coding Question(s): Possible Sepsis is documented on the H&P and in Progress Notes as well as on the Discharge Summary. Please specify below, in your clinical opinion, regarding the most likely cause of the Sepsis: ( x ) UTI ( ) Other: Please Specify ( ) Unknown likely cause Physician's Response(s): Thank you Meenakshi Martinez Principal Diagnosis: "that condition established after study, to be chiefly responsible for occasioning the admission of the patient to the hospital for care." Co-Existing Principal Diagnosis: "when two or more diagnoses equally meet the criteria for principal diagnosis as determined by the circumstances of admission, diagnostic work up, and/or therapy provided, and the Alphabetic Index, Tabular List, or another coding guideline does not provide sequencing direction, any one of the diagnoses may be sequenced first." "When the physician has documented what appears to be a current diagnosis in the body of the record, but has not included the diagnosis in the final diagnostic statement, the physician should be asked whether the diagnosis should be added." (Source Coding Clinic 2 QTR90. p3-4) MILE
== END 2022-06-03 17:09 | disposition home or self-care (01) | DRG 871 ==
LOC: ED 16:03 → 4W 20:27 → SUATTDRO 20:27 → 4W 21:30

== ENCOUNTER 2022-06-30 12:42 | Inpatient (IN) ==
--- NOTE | 2022-06-30 13:39 | Emergency Department Note ---
Impression & Plan Abdominal ascites, Acute upper abdominal pain, SOB (shortness of breath), Advanced cirrhosis of liver, Hepatomegaly ED Provider Note Name: SANTA ANNA Age: 67 Sex: F Arrives Via: Walk-In Informant: Patient, PCP via phone ED Provider: Benny Cantu MD Chief Complaint: Abdominal pain and shortness of breath Impression: As per impressions above Medical Decision Makin-year-old female with history of myelodysplastic disease amongst other medical issues arrives for evaluation of worsening shortness of breath and abdominal distention. She has been dealing with worsening liver failure and ascites over the last month or so. She has a scant amount of ascites on examination. After discussion with her and findings of essentially unremarkable labs went ahead with CT. There is a large amount of ascites. Initially the thought was to try and go home but given the amount of discomfort she is having the pain plan will be to bring her in. I did briefly discuss with the radiologist where they do feel that there is likely enough ascites to drain at this point. She does not appear septic. Her urine looks contaminated as she has no UTI symptoms no fevers. Her white blood cell count is only mildly elevated at this time compared to previous which was much much higher. She does not have SBP by examination and has no peritonitis by palpation. Prior Medical Record and Triage/Nursing Notes reviewed by Me Additional history obtained from chart & PCP Differentials:Fluid overload, progression of disease, liver failure, renal failure, pneumonia, pleural effusion, chf amongst multiple other pathologies. Vital Signs: reviewed and remarkable for no significant abnormalities Interventions: declines pain medications Labs:Reviewed and remarkable for no significant abnormalities Imaging:ct a/p wo contrast: increase in ascites Consults:Dr Hernandez Plan: Disposition:Hospitalization. Condition: Fair History of Present Illness: 67-year-old female arrives for evaluation of shortness of breath. Patient with myelodysplastic disease resulting in fluid overload and large spleen and liver masses. 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 Patient notes that she started having increasing shortness of breath over the summer. She was actually hospitalized at the beginning of May for sepsis due to UTI. She states s keiko then she had been feeling better but then 2 weeks ago shortness of breath restarted. She states she is now constantly short of breath when initially it was just with exertion. Now any exertion makes it significantly worse sitting down and sitting straight up makes better. Any laying back makes it worse as well. She denies any cough or productive sputum. She has been having increasing abdominal girth as well as swelling in her legs. She is not on any diuretics. She denies any falls, trauma, injury. She has no chest pain, syncope, fevers, chills, nausea, vomiting, back pain, leg pain, calf pain, headaches, neck pain or other concerning signs or symptoms. ROS: See above HPI for pertinent positives & negatives. A total of 10 systems reviewed and were otherwise negative. Past Medical History:See Below Past Surgical History:See Below Family History:See Below Social History:See Below Home Medications:See Below Allergies:nkda Vitals:Blood Pressure: 133/65, Pulse 74, RR 16, T 36.4C, O2 92% on RA Physical Exam: GENERAL: Patient is chronically unwell appearing and in minimal distress. EYES: No scleral icterus, unremarkable pupils. ENT: Mucous membranes moist, no nasal congestion. NECK: No masses appreciated, nomeningismus, trachea is midline. RESPIRATORY: Dyspneic and tachypneic without crackles or wheezing CARDIOVASCULAR: Regular rate and rhythm.No murmurs, rubs, gallops appreciated. GASTROINTESTINAL: distended with extensive caput. mild erythema lower abdomen which she states is chronic. fluid wave appreciated. BACK: No midline tenderness, no CVA tenderness EXTREMITIES: Normal motion all extremities, no cyanosis, bilateral foot & leg edema. NEUROLOGIC: Alert and oriented, no acute motor or sensory deficits, no focal weakness, cranial nerves grossly intact. SKIN: No rash, no jaundice, no diaphoresis. PSYCH: Appropriate GCS: 15 ED Course: Times/Reassessments: stable, agreeable to hospitalization Benny Cantu MD Past Med/Surg History Medical History Anticoagulant long-term use Anxiety Cirrhosis COVID-19 Depression Erythromelalgia Esophageal varices hx banding 2 years ago Hepatomegaly Herpes simplex History of blood clots neck, liver > 20 years ago History of DVT (deep vein thrombosis) RLE - > 20 years ago History of gastrointestinal hemorrhage History of pulmonary embolism > 20 years ago Inflammatory polyarthritis Lung nodule seen on imaging study Myelodysplastic disease follows with Dr. Vergara On anticoagulant therapy Osteopenia determined by x-ray Portal hypertension Splenomegaly Upper GI bleed hx Surgical History H/O shoulder surgery Dr. Cornejo for left shoulder manipulation hx History of bone marrow biopsy History of colonoscopy History of esophagogastroduodenoscopy (EGD) most recent 12/25/20 [place] History of liver biopsy History of tubal ligation Family History Father , age 44 Heart disease Myocardial infarction Mother Hypertension Sister Coronary heart disease Mood disorder Sister Mood disorder Sister Mood disorder Sister Mood disorder Sister Mood disorder Sister Mood disorder Sister Mood disorder Brother Alcohol abuse Son , age 26 MVA (motor vehicle accident) Grandmother (Maternal) Breast cancer Aunt Breast cancer Other No family history of adverse response to anesthesia Denies family history of Ovarian cancer Prostate cancer Colorectal cancer Social History Smoking Status: Never smoker Second Hand Exposure: No; Hx Alcohol Use: No Hx Substance Use: No Preferred Language: Syrian Communication Ability: Effective Visual Impairment: No Limitations Hearing Ability: Normal Air Analyst Required: No Beliefs That Will Affect Care: None marital status: Current Living Situation: Spouse current occupational status: retired How many Children do You have: 1 Feels Safe at Home: Yes Safety Concerns: Feels Safe At This Time Childhood Exposure to Second-Hand Smoke: Yes Dental Care, Regularly: Yes Physical Activity Frequency: Does not Exercise Seatbelt Use: always Sunscreen Use: Yes Assistive Devices: None Allergies Allergies Allergy/AdvReac Type Severity Reaction Status Date / Time No Known Allergies Allergy Verified 06/30/22 16:55 Home Meds Home Medications Medication Instructions Recorded Confirmed cholecalciferol (vitamin D3) 50 2,000 unit PO HS 08/30/18 06/30/22 mcg (2,000 unit) capsule (Vitamin D3) Previous Rx's Medication Instructions Recorded rivaroxaban 10 mg tablet (Xarelto) 10 mg PO QPM #90 tabs 05/02/21 propranolol 10 mg tablet 10 mg PO BID #270 tabs 06/03/22 sodium bicarbonate 650 mg tablet 650 mg PO BID #60 tabs 06/03/22 citalopram 20 mg tablet (Celexa) 30 mg PO HS #135 tabs 06/09/22 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 40 mg tablet,delayed 40 mg PO BID #180 tabs 06/09/22 release magnesium oxide 500 mg capsule 500 mg PO DAILY #30 caps 06/16/22 potassium chloride 10 mEq 10 meq PO BID #60 tabs 06/16/22 tablet,extended release oxycodone 5 mg tablet 5 mg PO Q6H PRN pain #12 tabs 06/30/22 Results & Data (ED) Vital Signs Vital Signs - 24 hr 06/30/22 12:45 06/30/22 12:53 06/30/22 13:40 Temperature 36.4 C L Temperature Source Temporal Artery Scan Pulse Rate 77 Pulse Rate [Finger] Pulse Rhythm Regular Pulse Rhythm [Finger] Pulse Strength Normal Respiratory Rate 28 H Respiratory Effort / Characteristics Non-Labored Spontaneous Respiratory Depth Normal Respiratory Pattern Regular Blood Pressure 130/80 Blood Pressure [Left Arm] Blood Pressure Mean 96 Blood Pressure Mean [Left Arm] Blood Pressure Position Sitting Pulse Oximetry 95 94 Pulse Oximetry [Exercises] Oxygen Delivery Method Room Air Room Air Room Air Sepsis Recent Fever Within 48 Hours No Sepsis New/Unexplained Change in Mental Status No Sepsis Action Taken by Nursing No Action Required 06/30/22 14:00 06/30/22 14:59 Temperature Temperature Source Pulse Rate Pulse Rate [Finger] 74 Pulse Rhythm Pulse Rhythm [Finger] Regular Pulse Strength Respiratory Rate 16 Respiratory Effort / Characteristics Respiratory Depth Respiratory Pattern Blood Pressure Blood Pressure [Left Arm] 133/65 Blood Pressure Mean Blood Pressure Mean [Left Arm] 87 Blood Pressure Position Pulse Oximetry 93 Pulse Oximetry [Exercises] 92 Oxygen Delivery Method Room Air Sepsis Recent Fever Within 48 Hours Sepsis New/Unexplained Change in Mental Status Sepsis Action Taken by Nursing Laboratory Data Result diagrams: 07/02/22 07:01 07/02/22 07:01 Lab Results 06/30/22 06/30/22 06/30/22 Range/Units 13:40 13:40 13:40 WBC 12.83 H (4.8-10.8) K/ul RBC 5.08 (3.93-5.22) M/uL Hgb 12.8 (12.0-16.0) g/dl Hct 43.3 (34.1-44.9) % MCV 85.2 (80.0-100.0) fL MCH 25.2 (25.0-34.0) pg MCHC 29.6 L (32.0-36.0) g/dL RDW Std Deviation 62.5 H (36.4-46.3) fL RDW Coeff of Polina 21.3 H (11.5-14.5) % Plt Count 151 (130-400) K/uL Absolute Nucleated RBC 0.50 H (0-0) K/uL Nucleated RBC % (auto) 3.9 % Neutrophils % (Manual) 74 % Lymphocytes % (Manual) 9 % Monocytes % (Manual) 4 % Eosinophils % (Manual) 3 % Basophils % (Manual) 3 % Metamyelocytes % (Man) 3 % Myelocytes % (Man) 3 % Neutrophils # (Manual) 9.49 H (1.4-6.5) K/uL Total Absolute Neuts 9.49 H (1.4-6.5) K/uL Lymphocytes # (Manual) 1.15 L (1.2-3.4) K/uL Total Abs Lymphocytes 1.15 L (1.2-3.4) K/uL Monocytes # (Manual) 0.51 (0.24-0.82) K/uL Eosinophils # (Manual) 0.38 (0-0.50) K/uL Basophils # (Manual) 0.38 H (0-0.2) K/uL Metamyelocytes # (Man) 0.38 H (0-0) K/uL Myelocytes # (Manual) 0.38 H (0-0) K/uL Polychromasia 1+ Anisocytosis Present Tear Drop Cells 3+ Ovalocytes 1+ PT (9.0-12.0) Seconds INR (0.9-1.1) APTT (21.0-31.0) Seconds PTT Ratio Sodium 142 (136-145) mmol/L Potassium 3.7 (3.5-5.1) mmol/L Chloride 112 H (98-107) mmol/L Carbon Dioxide 24 (21-32) mmol/L Anion Gap 6 (3-11) BUN 25 H (6-23) mg/dl Creatinine 1.42 H (0.6-1.2) mg/dl Est Cr Clr Drug Dosing 36.7 ml/min Est GFR ( Amer) 44.8 ml/min Est GFR (Non-Af Amer) 38.7 ml/min BUN/Creatinine Ratio 17.6 (10-20) Glucose 112 H (70-99(Fasting)) mg/dl Lactate 1.3 (0.4-2.0) mmol/L Calcium 8.9 (8.5-10.1) mg/dl Magnesium 1.8 (1.7-2.4) mg/dl Total Bilirubin 2.0 H (0.2-1.0) mg/dl Direct Bilirubin 0.6 H (0-0.2) mg/dl AST 53 H (13-39) U/L ALT 26 (7-52) U/L Alkaline Phosphatase 378 H (34-104) U/L Ammonia Troponin I High Sens 7.4 D (0-14) pg/ml Total Protein 6.7 (6.0-8.3) gm/dl Albumin 3.6 (3.4-5.0) gm/dl Lipase 47 (11-82) U/L Procalcitonin (0-0.5) ng/ml Urine Color Urine Appearance (Clear) Urine pH (4.5-7.5) Ur Specific Eden (1.000-1.030) Urine Protein (Negative) Urine Glucose (UA) (Negative) Urine Ketones (Negative) Urine Blood (Negative) Urine Nitrite (Negative) Urine Bilirubin (Negative) Urine Urobilinogen (Negative) Ur Leukocyte Esterase (Negative) Urine WBC (Auto) (0-5) /hpf Urine RBC (Auto) (0-4) /hpf U Hyaline Cast (Auto) (0-5) /lpf U Epithel Cells (Auto) (0-5) /lpf Urine Bacteria (Auto) (Negative) SARS-CoV-2, RNA, NAAT (NEGATIVE) 06/30/22 06/30/22 06/30/22 Range/Units 13:40 13:40 14:00 WBC (4.8-10.8) K/ul RBC (3.93-5.22) M/uL Hgb (12.0-16.0) g/dl Hct (34.1-44.9) % MCV (80.0-100.0) fL MCH (25.0-34.0) pg MCHC (32.0-36.0) g/dL RDW Std Deviation (36.4-46.3) fL RDW Coeff of Polina (11.5-14.5) % Plt Count (130-400) K/uL Absolute Nucleated RBC (0-0) K/uL Nucleated RBC % (auto) % Neutrophils % (Manual) % Lymphocytes % (Manual) % Monocytes % (Manual) % Eosinophils % (Manual) % Basophils % (Manual) % Metamyelocytes % (Man) % Myelocytes % (Man) % Neutrophils # (Manual) (1.4-6.5) K/uL Total Absolute Neuts (1.4-6.5) K/uL Lymphocytes # (Manual) (1.2-3.4) K/uL Total Abs Lymphocytes (1.2-3.4) K/uL Monocytes # (Manual) (0.24-0.82) K/uL Eosinophils # (Manual) (0-0.50) K/uL Basophils # (Manual) (0-0.2) K/uL Metamyelocytes # (Man) (0-0) K/uL Myelocytes # (Manual) (0-0) K/uL Polychromasia Anisocytosis Tear Drop Cells Ovalocytes PT 16.3 H (9.0-12.0) Seconds INR 1.6 H (0.9-1.1) APTT 41.7 H (21.0-31.0) Seconds PTT Ratio 1.5 Sodium (136-145) mmol/L Potassium (3.5-5.1) mmol/L Chloride (98-107) mmol/L Carbon Dioxide (21-32) mmol/L Anion Gap (3-11) BUN (6-23) mg/dl Creatinine (0.6-1.2) mg/dl Est Cr Clr Drug Dosing ml/min Est GFR ( Amer) ml/min Est GFR (Non-Af Amer) ml/min BUN/Creatinine Ratio (10-20) Glucose (70-99(Fasting)) mg/dl Lactate (0.4-2.0) mmol/L Calcium (8.5-10.1) mg/dl Magnesium (1.7-2.4) mg/dl Total Bilirubin (0.2-1.0) mg/dl Direct Bilirubin (0-0.2) mg/dl AST (13-39) U/L ALT (7-52) U/L Alkaline Phosphatase (34-104) U/L Ammonia Troponin I High Sens (0-14) pg/ml Total Protein (6.0-8.3) gm/dl Albumin (3.4-5.0) gm/dl Lipase (11-82) U/L Procalcitonin 0.50 (0-0.5) ng/ml Urine Color Urine Appearance (Clear) Urine pH (4.5-7.5) Ur Specific Eden (1.000-1.030) Urine Protein (Negative) Urine Glucose (UA) (Negative) Urine Ketones (Negative) Urine Blood (Negative) Urine Nitrite (Negative) Urine Bilirubin (Negative) Urine Urobilinogen (Negative) Ur Leukocyte Esterase (Negative) Urine WBC (Auto) (0-5) /hpf Urine RBC (Auto) (0-4) /hpf U Hyaline Cast (Auto) (0-5) /lpf U Epithel Cells (Auto) (0-5) /lpf Urine Bacteria (Auto) (Negative) SARS-CoV-2, RNA, NAAT NEGATIVE (NEGATIVE) 06/30/22 06/30/22 Range/Units 14:57 15:36 WBC (4.8-10.8) K/ul RBC (3.93-5.22) M/uL Hgb (12.0-16.0) g/dl Hct (34.1-44.9) % MCV (80.0-100.0) fL MCH (25.0-34.0) pg MCHC (32.0-36.0) g/dL RDW Std Deviation (36.4-46.3) fL RDW Coeff of Polina (11.5-14.5) % Plt Count (130-400) K/uL Absolute Nucleated RBC (0-0) K/uL Nucleated RBC % (auto) % Neutrophils % (Manual) % Lymphocytes % (Manual) % Monocytes % (Manual) % Eosinophils % (Manual) % Basophils % (Manual) % Metamyelocytes % (Man) % Myelocytes % (Man) % Neutrophils # (Manual) (1.4-6.5) K/uL Total Absolute Neuts (1.4-6.5) K/uL Lymphocytes # (Manual) (1.2-3.4) K/uL Total Abs Lymphocytes (1.2-3.4) K/uL Monocytes # (Manual) (0.24-0.82) K/uL Eosinophils # (Manual) (0-0.50) K/uL Basophils # (Manual) (0-0.2) K/uL Metamyelocytes # (Man) (0-0) K/uL Myelocytes # (Manual) (0-0) K/uL Polychromasia Anisocytosis Tear Drop Cells Ovalocytes PT (9.0-12.0) Seconds INR (0.9-1.1) APTT (21.0-31.0) Seconds PTT Ratio Sodium (136-145) mmol/L Potassium (3.5-5.1) mmol/L Chloride (98-107) mmol/L Carbon Dioxide (21-32) mmol/L Anion Gap (3-11) BUN (6-23) mg/dl Creatinine (0.6-1.2) mg/dl Est Cr Clr Drug Dosing ml/min Est GFR ( Amer) ml/min Est GFR (Non-Af Amer) ml/min BUN/Creatinine Ratio (10-20) Glucose (70-99(Fasting)) mg/dl Lactate (0.4-2.0) mmol/L Calcium (8.5-10.1) mg/dl Magnesium (1.7-2.4) mg/dl Total Bilirubin (0.2-1.0) mg/dl Direct Bilirubin (0-0.2) mg/dl AST (13-39) U/L ALT (7-52) U/L Alkaline Phosphatase (34-104) U/L Ammonia Cancelled Troponin I High Sens (0-14) pg/ml Total Protein (6.0-8.3) gm/dl Albumin (3.4-5.0) gm/dl Lipase (11-82) U/L Procalcitonin (0-0.5) ng/ml Urine Color Dark Yellow Urine Appearance Cloudy A (Clear) Urine pH 5.5 (4.5-7.5) Ur Specific Eden 1.021 (1.000-1.030) Urine Protein 2+ H (Negative) Urine Glucose (UA) Negative (Negative) Urine Ketones Trace H (Negative) Urine Blood 2+ H (Negative) Urine Nitrite Positive A (Negative) Urine Bilirubin 1+ H (Negative) Urine Urobilinogen Negative (Negative) Ur Leukocyte Esterase 2+ H (Negative) Urine WBC (Auto) >30 H (0-5) /hpf Urine RBC (Auto) 10-30 H (0-4) /hpf U Hyaline Cast (Auto) 1-5 (0-5) /lpf U Epithel Cells (Auto) 20-30 H (0-5) /lpf Urine Bacteria (Auto) 4+ H (Negative) SARS-CoV-2, RNA, NAAT (NEGATIVE) Administered Medications Citalopram Hydrobromide (Citalopram 20 Mg Tab) 30 mg PO HS PATRICIA Stop: 07/30/22 20:59 Last Admin: 07/01/22 20:24 Dose: 30 mg Documented By: Admin: 06/30/22 20:32 Dose: 30 mg Documented By: RH Hydromorphone HCl (Hydromorphone Inj 0.5 Mg/0.5 Ml Syr) 0.25 mg IV Q4H PRN PRN Reason: Pain (1,2,3,4,5) & Pre PT Stop: 07/14/22 18:22 Last Admin: 06/30/22 23:02 Dose: 0.25 mg Documented By: MICHELE Lidocaine (Lidocaine 5% 1 Patch) 1 patch TD QAM PATRICIA Stop: 07/31/22 08:59 Last Admin: 07/02/22 08:56 Dose: 1 patch Documented By: Admin: 07/01/22 11:02 Dose: 1 patch Documented By: RENY Magnesium Oxide (Magnesium Oxide 400 Mg Tab) 400 mg PO DAILY PATRICIA Stop: 07/31/22 08:59 Last Admin: 07/02/22 08:58 Dose: 400 mg Documented By: Admin: 07/01/22 08:06 Dose: 400 mg Documented By: RENY Miscellaneous (Remove Lidoderm Patch) 1 each N/A DAILY@2100 PATRICIA Stop: 07/30/22 20:59 Last Admin: 07/01/22 20:25 Dose: 1 each Documented By: Admin: 06/30/22 20:36 Dose: Not Given Documented By: MICHELE Pantoprazole Sodium (Pantoprazole 40 Mg Tab) 40 mg PO BID PATRICIA Stop: 07/30/22 20:59 Last Admin: 07/02/22 08:56 Dose: 40 mg Documented By: Admin: 07/01/22 20:25 Dose: 40 mg Documented By: Admin: 07/01/22 08:06 Dose: 40 mg Documented By: Admin: 06/30/22 20:32 Dose: 40 mg Documented By: RH Potassium Chloride (Potassium Chloride 10 Meq Tabcr) 10 meq PO BID PATRICIA Stop: 07/30/22 20:59 Last Admin: 07/02/22 09:19 Dose: 10 meq Documented By: Admin: 07/01/22 20:24 Dose: 10 meq Documented By: Admin: 07/01/22 08:05 Dose: 10 meq Documented By: Admin: 06/30/22 20:31 Dose: 10 meq Documented By: RH Propranolol HCl (Propranolol Hcl 10 Mg Tab) 10 mg PO BID PATRICIA Stop: 07/30/22 20:59 Last Admin: 07/02/22 08:57 Dose: 10 mg Documented By: Admin: 07/01/22 20:25 Dose: 10 mg Documented By: Admin: 07/01/22 08:05 Dose: 10 mg Documented By: Admin: 06/30/22 20:32 Dose: 10 mg Documented By: RH Rivaroxaban (Rivaroxaban 10 Mg Tablet) 10 mg PO QAM PATRICIA Stop: 07/31/22 08:59 Last Admin: 07/02/22 08:57 Dose: 10 mg Documented By: Admin: 07/01/22 08:04 Dose: 10 mg Documented By: CS Sodium Bicarbonate (Sodium Bicarbonate 650 Mg Tab) 650 mg PO BID PATRICIA Stop: 07/30/22 20:59 Last Admin: 07/02/22 08:57 Dose: 650 mg Documented By: Admin: 07/01/22 20:24 Dose: 650 mg Documented By: Admin: 07/01/22 08:05 Dose: 650 mg Documented By: Admin: 06/30/22 20:31 Dose: 650 mg Documented By: RH Vitamin D (Cholecalciferol 1,000 Units 25 Mcg Tab) 2,000 units PO HS PATRICIA Stop: 07/30/22 20:59 Last Admin: 07/01/22 20:25 Dose: 2,000 units Documented By: Admin: 06/30/22 20:32 Dose: 2,000 units Documented By: RH Discontinued Medications Albumin Human (Albumin 25% 100 Ml) 25 gm in 100 mls @ 50 mls/hr IV Q2H PATRICIA Stop: 07/01/22 20:29 Last Infusion: 07/02/22 01:56 Dose: 0 mls/hr Documented By: Admin: 07/01/22 19:39 Dose: 50 mls/hr Documented By: Infusion: 07/01/22 19:02 Dose: 50 mls/hr Documented By: Admin: 07/01/22 17:02 Dose: 50 mls/hr Documented By: CS Influenza Virus Vaccine (Influenza Vaccine High Dose Pf 65+ 0.7 Ml Syr) 0.7 ml IM .ONCE ONE Stop: 06/30/22 18:53 Last Admin: 07/01/22 11:33 Dose: 0.7 ml Documented By: CS Rivaroxaban (Rivaroxaban 10 Mg Tablet) 10 mg PO QPM PATRICIA Stop: 07/30/22 20:59 Last Admin: 06/30/22 20:31 Dose: Not Given Documented By: RH Imaging Data Radiologist's Impression: Chest X-Ray 06/30/22 13:34 XR chest 1V portable HISTORY: Shortness of breath. COMPARISON: Chest 05/26/2022. FINDINGS: No pneumothorax. No pleural effusions. The heart remains mildly enlarged. There are low lung volumes with mild volume loss within the right hemithorax, unchanged. Right upper lobe linear density remains stable and favor scarring. There are a few right basilar linear densities also likely representing subsegmental atelectasis or scarring. No evidence for pulmonary edema. IMPRESSION: No significant change compared to the prior study. No acute process. ACT 112: Negative or not required by law. Electronically signed by: Benji Salcedo M.D. 06/30/2022 1:55 PM Discharge Plan Visit Data Chief Complaint: Shortness of Breath/Dyspnea Stated Complaint: SOB, ABDOMINAL PAIN. REF BY DR BAUM AND DR VERGARA ED Provider: Benny Cantu Discharge Problem: Abdominal ascites, Acute upper abdominal pain, SOB (shortness of breath), Advanced cirrhosis of liver, Hepatomegaly Patient Disposition: Admitted As Inpatient Discharge Instructions Interventions: ED Discharge Assessment Last Done: 06/30/22 17:51
--- NOTE | 2022-06-30 13:57 | XRay Report ---
XR chest 1V portable HISTORY: Shortness of breath. COMPARISON: Chest 05/26/2022. FINDINGS: No pneumothorax. No pleural effusions. The heart remains mildly enlarged. There are low redd g volumes with mild volume loss within the right hemithorax, unchanged. Right upper lobe linear densi ty remains stable and favor scarring. There are a few right basilar linear densities also likely repr esenting subsegmental atelectasis or scarring. No evidence for pulmonary edema. IMPRESSION: No significant change compared to the prior study. No acute process. ACT 112: Negative or not required by law. Electronically signed by: Benji Salcedo M.D. 06/30/2022 1:55 PM
[2022-06-30 14:02] LABS: Hematocrit (blood only) 43.3 % (34.1-44.9); Hemoglobin 12.8 g/dl (12.0-16.0); Mean Corpuscular Hemoglobin 25.2 pg (25.0-34.0); Mean Corpuscular Hgb Conc 29.6 g/dL (32.0-36.0); Mean Corpuscular Volume 85.2 fL (80.0-100.0); Nucleated RBC % (auto) 3.9 %; Platelet Count 151 K/uL (130-400); RDW Coefficient of Variation 21.3 % (11.5-14.5); RDW Standard Deviation 62.5 fL (36.4-46.3); Red Blood Count 5.08 M/uL (3.93-5.22); White Blood Count 12.83 K/ul (4.8-10.8)
[2022-06-30 14:19] LABS: Albumin Level 3.6 gm/dl (3.4-5.0); BUN Creatinine Ratio 17.6 (10-20); Bilirubin Direct 0.6 mg/dl (0-0.2); Calcium 8.9 mg/dl (8.5-10.1); Creatinine Clr Calc Pharmacy 36.7 ml/min; Est GFR (African American) 44.8 ml/min; Est GFR (Non-African American) 38.7 ml/min; Magnesium 1.8 mg/dl (1.7-2.4); Potassium 3.7 mmol/L (3.5-5.1); Total Protein 6.7 gm/dl (6.0-8.3)
[2022-06-30 14:27] LABS: ALC (manual) 1.15 K/uL (1.2-3.4); ANC (manual) 9.49 K/uL (1.4-6.5); Anisocytosis Present; Basophils # (manual) 0.38 K/uL (0-0.2); Basophils % (manual) 3 %; Eosinophils # (manual) 0.38 K/uL (0-0.50); Eosinophils % (manual) 3 %; Lymphocytes # (manual) 1.15 K/uL (1.2-3.4); Lymphocytes % (manual) 9 %; Metamyelocytes # (manual) 0.38 K/uL (0-0); Metamyelocytes % (manual) 3 %; Monocytes # (manual) 0.51 K/uL (0.24-0.82); Monocytes % (manual) 4 %; Myelocytes # (manual) 0.38 K/uL (0-0); Myelocytes % (manual) 3 %; Neutrophils # (manual) 9.49 K/uL (1.4-6.5); Neutrophils % (manual) 74 %; Ovalocytes 1+; Polychromasia 1+; Tear Drop Cells 3+
[2022-06-30 15:03] LABS: Troponin I High Sensitivity 7.4 pg/ml (0-14)
[2022-06-30 15:08] LABS: Appearance Urine Cloudy (Clear); Bacteria Urine Automated 4+ (Negative); Blood Urine 2+ (Negative); Color Urine Dark Yellow; Epithelial Cell Urine Auto 20-30 /lpf (0-5); Glucose Urine UA Negative (Negative); Ketones Urine Trace (Negative); Leukocyte Esterase Urine 2+ (Negative); Nitrite Urine Positive (Negative); Protein Urine 2+ (Negative); Specific Gravity Urine 1.021 (1.000-1.030); Urobilinogen Urine Negative (Negative); WBC Urine Automated >30 /hpf (0-5); pH Urine 5.5 (4.5-7.5)
[2022-06-30 15:20] LABS: Bilirubin Urine 1+ (Negative)
--- NOTE | 2022-06-30 15:49 | History & Physical Report ---
Date of Service June 30, 2022 Assessment & Plan (1) Ascites: Plan: - Radiology to perform therapeutic paracentesis tomorrow. - No fever, chills, or abdominal tenderness to suggest SBP. (2) SOB (shortness of breath): Plan: - Secondary to ascites. CXR without evidence of pneumonia, or pulmonary edema. Though she has an elevated WBC, her PCT is within normal limits and she is without any URI symptoms, therefore infectious process is unlikely. - Plan for US paracentesis tomorrow. (3) RAFIQ (acute kidney injury): Plan: - Cr 1.42, improved from last admission but has gradually been increasing from 06/10. - May be secondary to cirrhosis/portal hypertension. - Continue sodium bicarb. - Daily BMP. (4) Advanced cirrhosis of liver: Plan: - Uncertain etiology, patient reports it is hereditary, previous GI notes have suggested Budd Chiari syndrome at one point however there is no definitive cause noted in previous GI nots from here or [facility]. - She does follow with Dr. Chio escalante/ hepatology at [facility]. Next appt in August. She reports she is not a liver transplant "because my liver disease is hereditary". See his scanned in note from 09/05/21. - Continue propranolol. - Without acute liver failure or encephalopathy. - Unable to tolerate lactulose due to diarrhea, insurance does not cover rifaximin. - Was taken off spironolactone last year. - Consider restarting Lasix given significant ascites accumulation since d/c one month ago. At that time it was d/c'd indefinitely due to hypotension/syncope leading to admission. - Portal vein thrombosis seen on imaging from last month is not well visualized no today's exam. Patient has a history of coagulopathy/PEs.Continue Xarelto. (5) Leukocytosis: Plan: - WBC 12, but without any infectious symptoms. urine has appearance of being i nfected, however is contaminated with epithelial cells, and patient is completely asymptomatic. - Defer on antibiotics for now. Urine cx has been collected. (6) Myelodysplastic disease: Plan: - Follows with Dr. Vergara, has an appointment for this Thursday 07/05. - Previously on Jakafi, however no longer taking as her insurance does not cover it. (7) Reflux esophagitis: Plan: - Continue PPI. Plan - [facility]. - SCDs for VTE ppx, continue home Xarelto, - DNR/DNI. History of Present Illness Chief Complaint: worsening SOB x 1 month Primary Care Provider: Shira Yarbrough MD Belgica Roy is a 67-year-old female with past medical history significant for cirrhosis with portal hypertension/splenomegaly/gastric varices/ascites, myelodysplastic syndrome, previous PEs, and GERD who presents today with shortness of breath. Patient was discharged on 06/05 and since then has gradually become more short of breath. She has been gaining weight in her abdomen and swelling in her lower legs. She is having pain across her upper abdomen near her ribs, but is otherwise without chest pain. On her last admission she was taken off her diuretics due to syncope and an RAFIQ. She has been very thirsty but has not been urinating much has been retaining fluid in h er legs and abdomen Upon presentation, her vital signs are within normal limits and stable. Oxygen saturations are >90% on room air. She has elevated white cell count, however her procalcitonin is normal at 0.50 and lactate of 1.3. Bicarb mildly elevated at 112 otherwise electrolytes are all within normal limits and her renal function is at baseline. T bili 2.0, direct bili 0.6, AST 50, ALT 26, alk phos of 378. Urine sample epithelial cells in it, but also with positive nitrates, leuk esterase, WBCs, and bacteria. COVID-negative. Allergies Allergy/AdvReac Type Severity Reaction Status Date / Time No Known Allergies Allergy Verified 06/30/22 16:55 Home Medications Medication Instructions Recorded Confirmed Type cholecalciferol (vitamin D3) 50 2,000 unit PO HS 08/30/18 06/30/22 History mcg (2,000 unit) capsule (Vitamin D3) rivaroxaban 10 mg tablet (Xarelto) 10 mg PO QPM #90 tabs 05/02/21 06/30/22 Rx propranolol 10 mg tablet 10 mg PO BID #270 tabs 06/03/22 06/30/22 Rx sodium bicarbonate 650 mg tablet 650 mg PO BID #60 tabs 06/03/22 06/30/22 Rx citalopram 20 mg tablet (Celexa) 30 mg PO HS #135 tabs 06/09/22 06/30/22 Rx 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 40 mg tablet,delayed 40 mg PO BID #180 tabs 06/09/22 06/30/22 Rx release magnesium oxide 500 mg capsule 500 mg PO DAILY #30 caps 06/16/22 06/30/22 Rx potassium chloride 10 mEq 10 meq PO BID #60 tabs 06/16/22 06/30/22 Rx tablet,extended release oxycodone 5 mg tablet 5 mg PO Q6H PRN pain #12 tabs 06/30/22 06/30/22 Rx Past Med/Surg History Medical History Anticoagulant long-term use Anxiety Cirrhosis COVID-19 Depression Erythromelalgia Esophageal varices hx banding 2 years ago Hepatomegaly Herpes simplex History of blood clots neck, liver > 20 years ago History of DVT (deep vein thrombosis) RLE - > 20 years ago History of gastrointestinal hemorrhage History of pulmonary embolism > 20 years ago Inflammatory polyarthritis Lung nodule seen on imaging study Myelodysplastic disease follows with Dr. Vergara On anticoagulant therapy Osteopenia determined by x-ray Portal hypertension Splenomegaly Upper GI bleed hx Surgical History H/O shoulder surgery Dr. Cornejo for left shoulder manipulation hx History of bone marrow biopsy History of colonoscopy History of esophagogastroduodenoscopy (EGD) most recent 12/25/20 [place] History of liver biopsy History of tubal ligation Family History Father , age 44 Heart disease Myocardial infarction Mother Hypertension Sister Coronary heart disease Mood disorder Sister Mood disorder Sister Mood disorder Sister Mood disorder Sister Mood disorder Sister Mood disorder Sister Mood disorder Brother Alcohol abuse Son , age 26 MVA (motor vehicle accident) Grandmother (Maternal) Breast cancer Aunt Breast cancer Other No family history of adverse response to anesthesia Denies family history of Ovarian cancer Prostate cancer Colorectal cancer Social History Smoking Status: Never smoker Second Hand Exposure: No; Hx Alcohol Use: No Hx Substance Use: No Preferred Language: Tamazight Communication Ability: Effective Visual Impairment: No Limitations Hearing Ability: Normal Surface Plate Inspector Required: No Beliefs That Will Affect Care: None marital status: Current Living Situation: Spouse current occupational status: retired Feels Safe at Home: Yes Childhood Exposure to Second-Hand Smoke: Yes Dental Care, Regularly: Yes Physical Activity Frequency: Does not Exercise Seatbelt Use: always Sunscreen Use: Yes Assistive Devices: None Review of Systems Review of Systems: Constitutional: No fever/chills, weakness, fatigue, myalgias, anorexia, night sweats Eyes: No diplopia, no worsening or blurred vision ENT: normal hearing, no trouble swallowing Respiratory: No cough, sputum, dyspnea at rest or on exertion Cardiovascular: No chest pain, tightness or palpitations Abdomen: pain along b/l upper abdomen; otherwise no pain elsewhere or nausea, v omiting, diarrhea, or constipation : decreased urinary output since discharge; denies dysuria, hematuria, increased urgency/frequency Musculoskeletal: No joint pain, calf pain, swelling Neurologic: No weakness, numbness/tingling, or balance problems Psychiatric: No anxiety or depression Skin: No rash or itch Physical Exam Physical Exam: General: awake, alert, cachectic, but no apparent distress Head: Normocephalic, atraumatic ENT: PERRL, EOMI, no pharyngeal exudate, mucous membranes moist Chest: Clear to auscultation, on room air, no adventitious breath sounds Cardiac: Regular rate and rhythm, no murmur, no JVD, normal peripheral pulses, good capillary refill Abdominal: abdomen is distended, firm, TTP along upper abdomen/around diaphragm; NABS x 4 quadrants, otherwise nontender to palpation, no rebound, guarding or tenderness Extremities: b/l lower extremities with 2+ edema; no erythema, calfs nontender to palpation Psych: Normal mood and affect Neuro: AAO x 3, strength intact bilaterally and rated 5/5, no motor deficits, speech is clear, no peripheral sensory deficits Skin: no rash or erythema Results & Data Results & Data ([facility]) Vital Signs (Past 12 Hours) Vital Signs Temp Pulse Pulse Resp BP BP Pulse Ox 06/30/22 14:59 06/30/22 14:00 74 16 133/65 93 06/30/22 13:40 06/30/22 12:53 94 06/30/22 12:45 36.4 C L 77 28 H 130/80 95 Pulse Ox O2 Del Method 06/30/22 14:59 92 Room Air 06/30/22 14:00 06/30/22 13:40 Room Air 06/30/22 12:53 Room Air 06/30/22 12:45 Room Air Laboratory Results Abnormal lab results 06/30/22 06/30/22 06/30/22 Range/Units 13:40 13:40 13:40 WBC 12.83 H (4.8-10.8) K/ul MCHC 29.6 L (32.0-36.0) g/dL RDW Std Deviation 62.5 H (36.4-46.3) fL RDW Coeff of Polina 21.3 H (11.5-14.5) % Absolute Nucleated RBC 0.50 H (0-0) K/uL Neutrophils # (Manual) 9.49 H (1.4-6.5) K/uL Total Absolute Neuts 9.49 H (1.4-6.5) K/uL Lymphocytes # (Manual) 1.15 L (1.2-3.4) K/uL Total Abs Lymphocytes 1.15 L (1.2-3.4) K/uL Basophils # (Manual) 0.38 H (0-0.2) K/uL Metamyelocytes # (Man) 0.38 H (0-0) K/uL Myelocytes # (Manual) 0.38 H (0-0) K/uL PT 16.3 H (9.0-12.0) Seconds INR 1.6 H (0.9-1.1) APTT 41.7 H (21.0-31.0) Seconds Chloride 112 H (98-107) mmol/L BUN 25 H (6-23) mg/dl Creatinine 1.42 H (0.6-1.2) mg/dl Glucose 112 H (70-99(Fasting)) mg/dl Total Bilirubin 2.0 H (0.2-1.0) mg/dl Direct Bilirubin 0.6 H (0-0.2) mg/dl AST 53 H (13-39) U/L Alkaline Phosphatase 378 H (34-104) U/L Urine Appearance (Clear) Urine Protein (Negative) Urine Ketones (Negative) Urine Blood (Negative) Urine Nitrite (Negative) Urine Bilirubin (Negative) Ur Leukocyte Esterase (Negative) Urine WBC (Auto) (0-5) /hpf Urine RBC (Auto) (0-4) /hpf U Epithel Cells (Auto) (0-5) /lpf Urine Bacteria (Auto) (Negative) 06/30/22 Range/Units 14:57 WBC (4.8-10.8) K/ul MCHC (32.0-36.0) g/dL RDW Std Deviation (36.4-46.3) fL RDW Coeff of Polina (11.5-14.5) % Absolute Nucleated RBC (0-0) K/uL Neutrophils # (Manual) (1.4-6.5) K/uL Total Absolute Neuts (1.4-6.5) K/uL Lymphocytes # (Manual) (1.2-3.4) K/uL Total Abs Lymphocytes (1.2-3.4) K/uL Basophils # (Manual) (0-0.2) K/uL Metamyelocytes # (Man) (0-0) K/uL Myelocytes # (Manual) (0-0) K/uL PT (9.0-12.0) Seconds INR (0.9-1.1) APTT (21.0-31.0) Seconds Chloride (98-107) mmol/L BUN (6-23) mg/dl Creatinine (0.6-1.2) mg/dl Glucose (70-99(Fasting)) mg/dl Total Bilirubin (0.2-1.0) mg/dl Direct Bilirubin (0-0.2) mg/dl AST (13-39) U/L Alkaline Phosphatase (34-104) U/L Urine Appearance Cloudy A (Clear) Urine Protein 2+ H (Negative) Urine Ketones Trace H (Negative) Urine Blood 2+ H (Negative) Urine Nitrite Positive A (Negative) Urine Bilirubin 1+ H (Negative) Ur Leukocyte Esterase 2+ H (Negative) Urine WBC (Auto) >30 H (0-5) /hpf Urine RBC (Auto) 10-30 H (0-4) /hpf U Epithel Cells (Auto) 20-30 H (0-5) /lpf Urine Bacteria (Auto) 4+ H (Negative) Diagnostic Findings Chest X-Ray 06/30/22 13:34 XR chest 1V portable HISTORY: Shortness of breath. COMPARISON: Chest 05/26/2022. FINDINGS: No pneumothorax. No pleural effusions. The heart remains mildly enlarged. There are low lung volumes with mild volume loss within the right hemithorax, unchanged. Right upper lobe linear density remains stable and favor scarring. There are a few right basilar linear densities also likely representing subsegmental atelectasis or scarring. No evidence for pulmonary edema. IMPRESSION: No significant change compared to the prior study. No acute process. ACT 112: Negative or not required by law. Electronically signed by: Benji Salcedo M.D. 06/30/2022 1:55 PM Abdomen/Pelvis CT 06/30/22 15:[address] WITHOUT CONTRAST CT DOSE: 567.57 mGy.cm HISTORY: worsening generalized abdominal pain, distension TECHNIQUE: Multiaxial CT images of the abdomen and pelvis were performed without contrast. A dose lowering technique was utilized adhering to the principles of ALARA. COMPARISON STUDY: Abdomen and pelvis CT 05/26/2022. FINDINGS: Bibasilar linear densities consistent with subsegmental atelectasis. The right middle lobe nodule seen in the prior study is likely obscured by the atelectasis. Patchy groundglass densities are noted at the lung bases. This is similar to the prior study. There is a 4 mm nodule within the left lower lobe on image 9. No pneumoperitoneum. No pneumatosis. Diffuse sclerosis throughout the visualized osseous structures remains unchanged. Trace pericardial effusion and mild cardiac megaly remain stable. Nodular contour to the liver consistent with cirrhosis. The spleen remains markedly enlarged. Cholelithiasis. No gallbladder wall thickening. The visualized adrenal glands and pancreas are unremarkable. No renal stones or hydronephrosis. Perisplenic varicosities remain unchanged. The bladder is decompressed but appears unremarkable. The uterus and bilateral adnexa are within normal limits. There is a large amount of ascites which has progressed. Diffuse body wall edema. Suboptimal evaluation for bowel pathology due to the lack of intravenous and oral contrast. However, there is no evidence for bowel obstruction. Normal appendix. Portal vein thrombus seen in the prior study is not well assessed on this noncontrast study. Question mild thickening and pericolonic fat stranding within the descending colon and sigmoid colon. This could represent a mild nonspecific colitis. IMPRESSION: 1. Large amount of ascites which has progressed in the interval. 2. Redemonstration of the diffuse sclerosis of the visualized osseous structures. This may represent the patient's history of a myeloproliferative disorder. 3. Questionable thickening and pericolonic fat stranding within the distal colon. This could be due to the patient's diffuse edematous state or a mild nonspecific colitis. 4. Cirrhotic liver with persistent splenomegaly and perisplenic varices. 5. Cholelithiasis. 6. Additional findings as described above. ACT 112: Negative or not required by law. Electronically signed by: Benji Salcedo M.D. 06/30/2022 3:52 PM Code Status & VTE Plan Code Status DNR/DNI. Supervising Physician Co-Signing Physician Notes Patient was seen and examined independently I discussed the case with Giuliana QUESADA I reviewed pertinent past medical social family history and also the plan of care and agree with the plan of care. Patient progressive chronic liver failure research in the chart defies finding an absolute positive etiology. She does have esophageal varices. She has had markedly progressive distention after she stopped her Jakafi that she takes for her myelo proliferative disorder. Had a stop because she cannot afford it and her insurance changed. She subsequently said progressive slightly since that time Patient is admitted for diagnostic and therapeutic paracentesis Exam of abdomen find to be nontoxic there is no rebound there is marked distention is uncomfortable but does not appear to be acutely concerning for infection. There is 2/10 at the start of fluid wave hepatomegaly Any exceptions will be noted below PG Care Time/CCT Total # of Minutes Spent Total Time Spent with Patient: Total time spent is greater than 50% in coordination of care (as documented) at patient's floor/unit and/or counseling patient: Coding Level of Care Code 43636 Initial Inpt Care Lvl 3 Diagnoses Ascites R18.8 SOB (shortness of breath) R06.02 RAFIQ (acute kidney injury) N17.9 Advanced cirrhosis of liver K74.60 Leukocytosis D72.829 Myelodysplastic disease C94.6 Reflux esophagitis K21.0
--- NOTE | 2022-06-30 15:53 | CT Scan Report ---
ABDOMEN AND PELVIS CT WITHOUT CONTRAST CT DOSE: 567.57 mGy.cm HISTORY: worsening generalized abdominal pain, distension TECHNIQUE: Multiaxial CT images of the abdomen and pelvis were performed without contrast. A dose lo wering technique was utilized adhering to the principles of ALARA. COMPARISON STUDY: Abdomen and pelvis CT 05/26/2022. FINDINGS: Bibasilar linear densities consistent with subsegmental atelectasis. The right middle lobe nodule seen in the prior study is likely obscured by the atelectasis. Patchy groundglass densities ar e noted at the lung bases. This is similar to the prior study. There is a 4 mm nodule within the left lower lobe on image 9. No pneumoperitoneum. No pneumatosis. Diffuse sclerosis throughout the visuali zed osseous structures remains unchanged. Trace pericardial effusion and mild cardiac megaly remain s table. Nodular contour to the liver consistent with cirrhosis. The spleen remains markedly enlarged. Cholelithiasis. No gallbladder wall thickening. The visualized adrenal glands and pancreas are unrema rkable. No renal stones or hydronephrosis. Perisplenic varicosities remain unchanged. The bladder is decompressed but appears unremarkable. The uterus and bilateral adnexa are within normal limits. Ther e is a large amount of ascites which has progressed. Diffuse body wall edema. Suboptimal evaluation f or bowel pathology due to the lack of intravenous and oral contrast. However, there is no evidence fo r bowel obstruction. Normal appendix. Portal vein thrombus seen in the prior study is not well assess ed on this noncontrast study. Question mild thickening and pericolonic fat stranding within the desce nding colon and sigmoid colon. This could represent a mild nonspecific colitis. IMPRESSION: 1. Large amount of ascites which has progressed in the interval. 2. Redemonstration of the diffuse sclerosis of the visualized osseous structures. This may represent the patient's history of a myeloproliferative disorder. 3. Questionable thickening and pericolonic fat stranding within the distal colon. This could be due t o the patient's diffuse edematous state or a mild nonspecific colitis. 4. Cirrhotic liver with persistent splenomegaly and perisplenic varices. 5. Cholelithiasis. 6. Additional findings as described above. ACT 112: Negative or not required by law. Electronically signed by: Benji Salcedo M.D. 06/30/2022 3:52 PM
[2022-06-30 16:02] LABS: INR 1.6 (0.9-1.1); Partial Thromboplastin Ratio 1.5; Partial Thromboplastin Time 41.7 Seconds (21.0-31.0); Prothrombin Time 16.3 Seconds (9.0-12.0)
[2022-06-30] MEDS ORDERED: ONDANSETRON INJ 2 MG/ML 2 ML VIAL IV PRN (18:23)
[2022-06-30] MEDS ORDERED: POLYETHYLENE (MIRALAX) 17 GM PACK PO PRN (18:23)
[2022-06-30] MEDS ORDERED: HYDROmorphone INJ 0.5 MG/0.5 ML SYR IV PRN ×2 (18:23)
[2022-06-30] MEDS ORDERED: INFLUENZA VACCINE HIGH DOSE PF 65+ 0.7 ML SYR IM ONE (18:52)
[2022-06-30] MEDS: POTASSIUM CHLORIDE 10 MEQ TABCR PO SCH (20:31)
[2022-06-30] MEDS: SODIUM BICARBONATE 650 MG TAB PO SCH (20:31)
[2022-06-30] MEDS: CITALOPRAM 20 MG TAB PO SCH (20:32)
[2022-06-30] MEDS: PROPRANOLOL HCL 10 MG TAB PO SCH (20:32)
[2022-06-30] MEDS: PANTOprazole 40 MG TAB PO SCH (20:32)
[2022-06-30] MEDS: CHOLECALCIFEROL 1,000 UNITS 25 MCG TAB PO SCH (20:32)
[2022-06-30] MEDS ORDERED: Nursing to Pharmacy Communication SCH (20:45)
[2022-06-30] MEDS ORDERED: RIVAROXABAN 10 MG TABLET PO SCH (21:00)
[2022-07-01 06:54] LABS: Hematocrit (blood only) 39.1 % (34.1-44.9); Hemoglobin 11.7 g/dl (12.0-16.0); Mean Corpuscular Hemoglobin 25.5 pg (25.0-34.0); Mean Corpuscular Hgb Conc 29.9 g/dL (32.0-36.0); Mean Corpuscular Volume 85.2 fL (80.0-100.0); Nucleated RBC # (auto) 0.59 K/uL (0-0); Nucleated RBC % (auto) 5.1 %; Platelet Count 131 K/uL (130-400); RDW Coefficient of Variation 21.1 % (11.5-14.5); RDW Standard Deviation 62.3 fL (36.4-46.3); Red Blood Count 4.59 M/uL (3.93-5.22); White Blood Count 11.53 K/ul (4.8-10.8)
[2022-07-01 07:03] LABS: Albumin Globulin Ratio 1.2 (0.9-2); Albumin Level 3.2 gm/dl (3.4-5.0); BUN Creatinine Ratio 20.5 (10-20); Calcium 8.6 mg/dl (8.5-10.1); Creatinine Clr Calc Pharmacy 41.1 ml/min; Est GFR (African American) 51.3 ml/min; Est GFR (Non-African American) 44.3 ml/min; Globulin 2.6 gm/dl (2.5-4.0); Magnesium 1.7 mg/dl (1.7-2.4); Potassium 3.8 mmol/L (3.5-5.1); Total Protein 5.8 gm/dl (6.0-8.3)
[2022-07-01 07:20] LABS: ALC (manual) 1.04 K/uL (1.2-3.4); ANC (manual) 8.65 K/uL (1.4-6.5); Anisocytosis Present; Basophils # (manual) 0.35 K/uL (0-0.2); Basophils % (manual) 3 %; Eosinophils # (manual) 0.35 K/uL (0-0.50); Eosinophils % (manual) 3 %; Lymphocytes # (manual) 1.04 K/uL (1.2-3.4); Lymphocytes % (manual) 9 %; Metamyelocytes # (manual) 0.35 K/uL (0-0); Metamyelocytes % (manual) 3 %; Monocytes # (manual) 0.58 K/uL (0.24-0.82); Monocytes % (manual) 5 %; Myelocytes # (manual) 0.23 K/uL (0-0); Myelocytes % (manual) 2 %; Neutrophils # (manual) 8.65 K/uL (1.4-6.5); Neutrophils % (manual) 75 %; Ovalocytes 1+; Polychromasia 1+; Schistocytes 1+; Tear Drop Cells 3+
[2022-07-01] MEDS: RIVAROXABAN 10 MG TABLET PO SCH (08:04)
[2022-07-01] MEDS: SODIUM BICARBONATE 650 MG TAB PO SCH ×2 (08:05→20:24)
[2022-07-01] MEDS: PROPRANOLOL HCL 10 MG TAB PO SCH ×2 (08:05→20:25)
[2022-07-01] MEDS: POTASSIUM CHLORIDE 10 MEQ TABCR PO SCH ×2 (08:05→20:24)
[2022-07-01] MEDS: MAGNESIUM OXIDE 400 MG TAB PO SCH (08:06)
[2022-07-01] MEDS: PANTOprazole 40 MG TAB PO SCH ×2 (08:06→20:25)
[2022-07-01] MEDS: LIDOCAINE 5% 1 PATCH TD SCH (11:02)
--- NOTE | 2022-07-01 14:10 | Electrocardiogram Report ---
Test Reason : Blood Pressure : / mmHG Vent. Rate : 079 BPM Atrial Rate : 079 BPM P-R Int : 172 ms QRS Dur : 082 ms QT Int : 402 ms P-R-T Axes : 000 072 -52 degrees QTc Int : 460 ms Poor data quality, interpretation may be adversely affected Normal sinus rhythm Nonspecific T wave abnormality Abnormal ECG When compared with ECG of 26-MAY-2022 16:18, Nonspecific T wave abnormality, worse in Inferior leads Confirmed by Young Adler ([id number]) on 07/01/2022 2:10:06 PM Referred By: Shira Yarbrough Confirmed By:Young Adler
--- NOTE | 2022-07-01 14:39 | Ultrasound Report ---
ULTRASOUND GUIDED DIAGNOSTIC AND THERAPEUTIC PARACENTESIS CLINICAL HISTORY: Ascites. COMPARISON STUDY: CT of the abdomen and pelvis June 30, 2022. PROCEDURE: The risks, benefits, and alternatives to the procedure were discussed with the patient inc luding the risk of bleeding, infection and injury to adjacent structures. The patient agreed to the procedure and informed written consent was obtained. Following real-time ultrasound localization, the skin of the left lower quadrant was prepped and draped. Following local anesthesia with Xylocaine, t he sheath paracentesis needle was inserted and approximately 6.4 liters of straw-colored fluid was re moved by vacuum suction. The patient tolerated the procedure well and no immediate complications were evident. IMPRESSION: Ultrasound-guided paracentesis with removal of 6.4 liters of ascites. 1 L of ascites was sent to the laboratory for analysis as ordered. ACT 112: Negative or not required by law. Electronically signed by: Erickson Alfonso M.D. 07/01/2022 2:37 PM
[2022-07-01 15:17] LABS: Albumin Peritoneal Fluid < 1.5 gm/dl; Amylase Peritoneal Fluid 22 U/L; Glucose Peritoneal Fluid 99 mg/dl; Lipase Peritoneal Fluid 93 U/L; Total Protein Peritoneal Fluid < 3.0 gm/dl
--- NOTE | 2022-07-01 15:27 | Nephrology Consultation ---
Date of Consultation July 01, 2022 Assessment & Plan (1) RAFIQ (acute kidney injury): (2) Ascites: (3) Anemia: Plan 67 yoF with hepatic cirrhosis, ascites and portal hypertension admitted with Worsening abdominal ascites, abdominal distension respiratory distress and need for paracentesis. Although there is slight variability in creatinine but overall renal function is staying relatively stable with creatinine 1.3-1.4, bicarbonate has been acceptable on oral sodium bicarbonate. --Schedule for paracentesis this afternoon, avoid >5 L fluid removal, recommend IV albumin infusion with paracentesis, check renal function and electrolyte tomorrow --Eventually she will need to be restarted on diuretics although there will be risk for worsening of renal function considering intravascular volume depletion, if renal function stays stable after paracentesis today, recommend restarting on spironolactone 25 mg daily and Lasix 20 mg daily. Will follow. Thank you for allowing me to participate in your patient's care. It was a pleasure to see Belgica. History of Present Illness Reason for Consultation: RAFIQ, ascites Attending Physician: Alfonso Del Rosario History of Present Illness Belgica Roy is a 67year-old F with PMH significant for advanced liver cirrhosis with ascites, portal hypertension and splenomegaly, JAK2+ idiopathic myelofibrosis with thrombophilia and protein S deficiency. She was admitted yesterday with worsening abdominal ascites and need for paracentesis. nephrology consult was requested for RAFIQ. EMR records are reviewed in detail during patient's visit. Belgica presents to hospital yesterday with progressive worsening of abdominal ascites, abdominal discomfort and shortness of breath. she was admitted to hospital from 05/26/22 to 06/05/22, during the hospitalization she developed RAFIQ, creatinine peaked to 2.7 which improved on discharge creatinine was 1.6. she was on Lasix which was discontinued during last hospitalization because of RAFIQ and volume depletion with ongoing diarrhea. Previously she was also on spironolactone for cirrhosis and ascites which was discontinued in September. Her last paracentesis was in September. Since discharge ascites was progressively worsening, she has been gradually gaining weight and becoming more short of breath with abdominal discomfort and pain under her rib. She has been very thirsty, urine output has been relatively low. Creatinine staying relatively stable around 1.3-1.4, electrolyte acceptable. Blood pressure stable without significant hypotension or lightheadedness. CT A/P with contrast during last admission showed bilateral atrophic kidney with no hydronephrosis. Never smoker, retired, no f/h of CKD, ESRD. 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 Previously followed with speech lang path at [facility] but she was considered not to be a candidate for liver transplant. h/o upper GI bleed and esophageal varices. She has history of PE and a protein S deficiency, on rivaroxaban.Has extensive history of blood clots including DVT and PE. She feels uncomfortable with significant abdominal ascites and scheduled to have paracentesis this afternoon. She was able to walk to the bathroom without getting dizzy or lightheaded. Allergies Allergy/AdvReac Type Severity Reaction Status Date / Time No Known Allergies Allergy Verified 06/30/22 16:55 Home Medications Medication Instructions Recorded Confirmed Type cholecalciferol (vitamin D3) 50 2,000 unit PO HS 08/30/18 06/30/22 History mcg (2,000 unit) capsule (Vitamin D3) rivaroxaban 10 mg tablet (Xarelto) 10 mg PO QPM #90 tabs 05/02/21 06/30/22 Rx propranolol 10 mg tablet 10 mg PO BID #270 tabs 06/03/22 06/30/22 Rx sodium bicarbonate 650 mg tablet 650 mg PO BID #60 tabs 06/03/22 06/30/22 Rx citalopram 20 mg tablet (Celexa) 30 mg PO HS #135 tabs 06/09/22 06/30/22 Rx 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 40 mg tablet,delayed 40 mg PO BID #180 tabs 06/09/22 06/30/22 Rx release magnesium oxide 500 mg capsule 500 mg PO DAILY #30 caps 06/16/22 06/30/22 Rx potassium chloride 10 mEq 10 meq PO BID #60 tabs 06/16/22 06/30/22 Rx tablet,extended release oxycodone 5 mg tablet 5 mg PO Q6H PRN pain #12 tabs 06/30/22 06/30/22 Rx Patient History Medical History Anticoagulant long-term use Anxiety Cirrhosis COVID-19 Depression Erythromelalgia Esophageal varices hx banding 2 years ago Hepatomegaly Herpes simplex History of blood clots neck, liver > 20 years ago History of DVT (deep vein thrombosis) RLE - > 20 years ago History of gastrointestinal hemorrhage History of pulmonary embolism > 20 years ago Inflammatory polyarthritis Lung nodule seen on imaging study Myelodysplastic disease follows with Dr. Vergara On anticoagulant therapy Osteopenia determined by x-ray Portal hypertension Splenomegaly Upper GI bleed hx Surgical History H/O shoulder surgery Dr. Cornejo for left shoulder manipulation hx History of bone marrow biopsy History of colonoscopy History of esophagogastroduodenoscopy (EGD) most recent 12/25/20 [place] History of liver biopsy History of tubal ligation Family History Father , age 44 Heart disease Myocardial infarction Mother Hypertension Sister Coronary heart disease Mood disorder Sister Mood disorder Sister Mood disorder Sister Mood disorder Sister Mood disorder Sister Mood disorder Sister Mood disorder Brother Alcohol abuse Son , age 26 MVA (motor vehicle accident) Grandmother (Maternal) Breast cancer Aunt Breast cancer Other No family history of adverse response to anesthesia Denies family history of Ovarian cancer Prostate cancer Colorectal cancer Social History Smoking Status: Never smoker Second Hand Exposure: No; Hx Alcohol Use: No Hx Substance Use: No Preferred Language: Macedonian Communication Ability: Effective Visual Impairment: No Limitations Hearing Ability: Normal Systems Design Engineer Required: No Beliefs That Will Affect Care: None marital status: Current Living Situation: Spouse current occupational status: retired How many Children do You have: 1 Feels Safe at Home: Yes Safety Concerns: Feels Safe At This Time Childhood Exposure to Second-Hand Smoke: Yes Dental Care, Regularly: Yes Physical Activity Frequency: Does not Exercise Seatbelt Use: always Sunscreen Use: Yes Assistive Devices: None Review of Systems Review of Systems: Detailed review of system was done and pertinent positives and negatives are mentioned above. Physical Exam Constitutional: WD/WN, vitals as above + acute distress and + ill appearing Eyes: + anicteric sclerae ENMT: Ears: no hearing impairment Neck: normal visual inspection Respiratory: normal respiratory effort; no respiratory distress and no cough Auscultation: lungs clear to auscultation bilaterally Cardiovascular: Rate/Rhythm: regular rate and regular rhythm Heart Sounds: normal S1 and normal S2 Extremities: + edema (2 + b/l LE edema) Gastrointestinal (Abdomen): Inspection/Auscultation: + abdomen distended and normal bowel sounds Percussion/Palpation: + abdomen rigid and + ascites; abdomen nontender and no guarding Musculoskeletal: Extremities: extremities normal to inspection Skin: no rashes Neurologic: no focal motor deficits Psychiatric: Orientation: alert and oriented x 3 Affect: euthymic affect Results & Data ([facility]) Vital Signs (Past 12 Hours) Vital Signs Temp Pulse Resp BP Pulse Ox O2 Del Method 07/01/22 14:43 36.6 C 74 16 116/71 94 Room Air 07/01/22 07:55 Room Air 07/01/22 08:03 83 121/67 07/01/22 08:00 36.9 C 83 16 116/68 93 Room Air PG Care Time/CCT Total # of Minutes Spent Total Time Spent with Patient: Total time spent is greater than 50% in coordination of care (as documented) at patient's floor/unit and/or counseling patient: Coding Level of Care Code 23667 Office/OBS Consult Lvl 5 Diagnoses RAFIQ (acute kidney injury) N17.9 Ascites R18.8 Anemia D64.9
[2022-07-01 16:43] LABS: Appearance Peritoneal Fluid Slightly Hazy; Basophils, Fluid 3 %; Color Peritoneal Fluid Pale Yellow; Lymphocytes, Fluid 15 %; Mono,Macrophage,Mesothelial 29 %; Neutrophils, Fluid 53 %; RBC Peritoneal Fluid (A) < 2000 /uL; WBC Peritoneal Fluid (A) 161 /ul (0-300)
[2022-07-01] MEDS: ALBUMIN 25% 100 mL 25 GM/100 ML VIAL IV SCH ×2 (17:02→19:39)
[2022-07-01 17:50] LABS: Amylase 19 U/L (25-115); Lipase 36 U/L (11-82)
[2022-07-01] MEDS: CITALOPRAM 20 MG TAB PO SCH (20:24)
[2022-07-01] MEDS: CHOLECALCIFEROL 1,000 UNITS 25 MCG TAB PO SCH (20:25)
--- NOTE | 2022-07-01 22:13 | Hospitalist Progress Note ---
Date of Service July 01, 2022 Assessment & Plan (1) Ascites: Plan: - obtained paracenthesis. removed 6 liters. will repeat bmp in AM. will need to restart diuretics if creatinine allows ordered albumin. - No fever, chills, or abdominal tenderness to suggest SBP. (2) SOB (shortness of breath): Plan: - Secondary to ascites. CXR without evidence of pneumonia, or pulmonary edema. Though she has an elevated WBC, her PCT is within normal limits and she is without any URI symptoms, therefore infectious process is unlikely. - Plan for US paracentesis today (3) RAFIQ (acute kidney injury): Plan: - Cr 1.42, improved from last admission but has gradually been increasing from 06/10. - May be secondary to cirrhosis/portal hypertension. - Continue sodium bicarb. - Daily BMP. -consulted nephro. (4) Advanced cirrhosis of liver: Plan: - Uncertain etiology, patient reports it is hereditary, previous GI notes have suggested Budd Chiari syndrome at one point however there is no definitive cause noted in previous GI nots from [facility] or [facility]. - She does follow with Dr. Chio escalante/ hepatology at [facility]. Next appt in August. She reports she is not a liver transplant "because my liver disease is hereditary". See his scanned in note from 09/05/21. - Continue propranolol. - Without acute liver failure or encephalopathy. - Unable to tolerate lactulose due to diarrhea, insurance does not cover rifaximin. - Was taken off spironolactone last year. - Consider restarting Lasix given significant ascites accumulation since d/c one month ago. At that time it was d/c'd indefinitely due to hypotension/syncope leading to admission. - Portal vein thrombosis seen on imaging from last month is not well visualized no today's exam. Patient has a history of coagulopathy/PEs.Continue Xarelto. (5) Leukocytosis: Plan: - WBC 12, but without any infectious symptoms. urine has appearance of being infected, however is contaminated with epithelial cells, and patient is completely asymptomatic. - Defer on antibiotics for now. Urine cx has been collected. (6) Myelodysplastic disease: Plan: - Follows with Dr. Vergara, has an appointment for this Thursday 07/05. - Previously on Jakafi, however no longer taking as her insurance does not cover it. (7) Reflux esophagitis: Plan: - Continue PPI. Plan - Admit to [facility]. - SCDs for VTE ppx, continue home Xarelto, - DNR/DNI. Admission and Anticipated Discharge Date Admission Date: June 30, 2022 Subjective Patient reports no new symptoms. Review of Systems Review of Systems: All systems reviewed & are unremarkable except as noted in HPI & below Physical Exam Physical Exam: General: awake, alert, cachectic, but no apparent distress Head: Normocephalic, atraumatic ENT: PERRL, EOMI, no pharyngeal exudate, mucous membranes moist Chest: Clear to auscultation, on room air, no adventitious breath sounds Cardiac: Regular rate and rhythm, no murmur, no JVD, normal peripheral pulses, good capillary refill Abdominal: abdomen is distended, firm, TTP along upper abdomen/around diaphragm; NABS x 4 quadrants, otherwise nontender to palpation, no rebound, guarding or tenderness Extremities: b/l lower extremities with 2+ edema; no erythema, calfs nontender to palpation Psych: Normal mood and affect Neuro: AAO x 3, strength intact bilaterally and rated 5/5, no motor deficits, speech is clear, no peripheral sensory deficits Skin: no rash or erythema Results & Data Results & Data ([facility]) Vital Signs (Past 12 Hours) Vital Signs Temp Pulse Pulse Resp BP Pulse Ox O2 Del Method 07/01/22 21:27 36.6 C 80 14 107/56 L 91 Room Air 07/01/22 17:31 36.5 C 77 18 108/65 95 Room Air 07/01/22 17:01 113/66 07/01/22 16:53 36.6 C 68 18 99/49 L 93 Room Air 07/01/22 14:43 36.6 C 74 16 116/71 94 Room Air PG Care Time/CCT Total # of Minutes Spent Total Time Spent with Patient: Total time spent is greater than 50% in coordination of care (as documented) at patient's floor/unit and/or counseling patient: Coding Level of Care Code 64923 Subseq Hosp Care Lvl 3 Diagnoses Ascites R18.8 SOB (shortness of breath) R06.02 RAFIQ (acute kidney injury) N17.9 Advanced cirrhosis of liver K74.60 Leukocytosis D72.829 Myelodysplastic disease C94.6 Reflux esophagitis K21.0 Time Spent (min) 35
[2022-07-02 07:47] LABS: Chol HDL Ratio 7.6 (0-5)
[2022-07-02 07:49] LABS: Albumin Level 3.4 gm/dl (3.4-5.0); BUN Creatinine Ratio 21.4 (10-20); Calcium 8.8 mg/dl (8.5-10.1); Creatinine Clr Calc Pharmacy 41.4 ml/min; Est GFR (African American) 51.8 ml/min; Est GFR (Non-African American) 44.7 ml/min; Phosphorus 2.7 mg/dl (2.5-4.9); Potassium 3.8 mmol/L (3.5-5.1)
[2022-07-02 07:52] LABS: Hematocrit (blood only) 36.1 % (34.1-44.9); Hemoglobin 10.8 g/dl (12.0-16.0); Mean Corpuscular Hemoglobin 25.3 pg (25.0-34.0); Mean Corpuscular Hgb Conc 29.9 g/dL (32.0-36.0); Mean Corpuscular Volume 84.5 fL (80.0-100.0); Nucleated RBC # (auto) 0.43 K/uL (0-0); Nucleated RBC % (auto) 5.6 %; Platelet Count 104 K/uL (130-400); RDW Coefficient of Variation 20.6 % (11.5-14.5); Red Blood Count 4.27 M/uL (3.93-5.22); White Blood Count 7.63 K/ul (4.8-10.8)
[2022-07-02] MEDS: PANTOprazole 40 MG TAB PO SCH ×2 (08:56→20:19)
[2022-07-02] MEDS: LIDOCAINE 5% 1 PATCH TD SCH (08:56)
[2022-07-02] MEDS: PROPRANOLOL HCL 10 MG TAB PO SCH ×2 (08:57→20:24)
[2022-07-02] MEDS: RIVAROXABAN 10 MG TABLET PO SCH (08:57)
[2022-07-02] MEDS: SODIUM BICARBONATE 650 MG TAB PO SCH ×2 (08:57→20:19)
[2022-07-02] MEDS: MAGNESIUM OXIDE 400 MG TAB PO SCH (08:58)
[2022-07-02] MEDS: POTASSIUM CHLORIDE 10 MEQ TABCR PO SCH ×2 (09:19→20:27)
--- NOTE | 2022-07-02 10:43 | Nephrology Progress Note ---
Date of Service July 02, 2022 Assessment & Plan (1) RAFIQ (acute kidney injury): (2) Ascites: (3) Anemia: Plan 67 yoF with hepatic cirrhosis, ascites and portal hypertension admitted with Worsening abdominal ascites, abdominal distension respiratory distress and need for paracentesis. Although there is slight variability in creatinine but overall renal function is staying relatively stable with creatinine 1.3-1.4, bicarbonate has been acceptable on oral sodium bicarbonate. -- had paracentesis yesterday, 6.4 L fluid removed, renal function and electrolyte stable -- recommend restarting on Lasix 20 mg daily, although there will be risk for worsening of renal function considering intravascular volume depletion. Will follow. Admission and Anticipated Discharge Date Admission Date: June 30, 2022 Subjective Overall feeling better today, had 6.4 L paracentesis yesterday. Renal function stable. Review of Systems Review of Systems: Detailed review of system was done and pertinent positives and negatives are mentioned above. Physical Exam Constitutional: WD/WN, vitals as above + ill appearing; no acute distress Eyes: + anicteric sclerae Neck: normal visual inspection Respiratory: Auscultation: lungs clear to auscultation bilaterally Cardiovascular: RRR, no murmur, no edema Gastrointestinal (Abdomen): ascites Skin: no rashes Neurologic: no focal motor deficits Psychiatric: Orientation: alert and oriented x 3 Results & Data ([facility]) Vital Signs (Past 12 Hours) Vital Signs Temp Pulse Resp BP Pulse Ox O2 Del Method 07/02/22 08:55 78 108/69 07/02/22 07:41 36.5 C 69 16 109/61 92 Room Air 07/02/22 03:00 36.6 C 75 16 104/67 93 Room Air PG Care Time/CCT Total # of Minutes Spent Total Time Spent with Patient: Total time spent is greater than 50% in coordination of care (as documented) at patient's floor/unit and/or counseling patient: Coding Level of Care Code 15992 Subseq Hosp Care Lvl 2 Diagnoses RAFIQ (acute kidney injury) N17.9 Ascites R18.8 Anemia D64.9
[2022-07-02] MEDS ORDERED: FUROSEMIDE 20 MG TAB PO ONE (16:00)
[2022-07-02] MEDS ORDERED: SPIRONOLACTONE 25 MG TAB PO ONE (16:00)
[2022-07-02] MEDS: CITALOPRAM 20 MG TAB PO SCH (20:18)
[2022-07-02] MEDS: CHOLECALCIFEROL 1,000 UNITS 25 MCG TAB PO SCH (20:18)
[2022-07-02 20:24] VITALS: PULSE 74
--- NOTE | 2022-07-02 21:53 | Hospitalist Progress Note ---
Date of Service July 02, 2022 Assessment & Plan (1) Ascites: Plan: - obtained paracenthesis. removed 6 liters on 07/01 renal function appears stable. added low dose spironolactone and furosemide. will repeat kidney numbers in AM. WBC normalized likely reactive. - No fever, chills, or abdominal tenderness to suggest SBP. WBC count not above threshold for SBP. Will need to have PCP coordinate visits with radiology for likely paracentesis checks every 2-3 weeks. (2) SOB (shortness of breath): Plan: - Secondary to ascites. CXR without evidence of pneumonia, or pulmonary edema. Though she has an elevated WBC, her PCT is within normal limits and she is without any URI symptoms, therefore infectious process is unlikely. - resolved after procedure (3) RAFIQ (acute kidney injury): Plan: - Cr 1.42, improved from last admission but has gradually been increasing from 06/10. - May be secondary to cirrhosis/portal hypertension. - Continue sodium bicarb. - Daily BMP. -consulted nephro. (4) Advanced cirrhosis of liver: Plan: - Uncertain etiology, patient reports it is hereditary, previous GI notes have suggested Budd Chiari syndrome at one point however there is no definitive cause noted in previous GI nots from here or [facility]. - She does follow with Dr. Chio escalante/ hepatology at [facility]. Next appt in August. She reports she is not a liver transplant "because my liver disease is hereditary". See his scanned in note from 09/05/21. - Continue propranolol. - Without acute liver failure or encephalopathy. - Unable to tolerate lactulose due to diarrhea, insurance does not cover rifaximin. - Was taken off spironolactone last year. - Consider restarting Lasix given significant ascites accumulation since d/c one month ago. At that time it was d/c'd indefinitely due to hypotension/syncope leading to admission. - Portal vein thrombosis seen on imaging from last month is not well visualized no today's exam. Patient has a history of coagulopathy/PEs.Continue Xarelto. (5) Leukocytosis: Plan: - WBC 12, but without any infectious symptoms. urine has appearance of being infected, however is contaminated with epithelial cells, and patient is completely asymptomatic. - Defer on antibiotics for now. Urine cx has been collected. -This has resolved on 07/02 (6) Myelodysplastic disease: Plan: - Follows with Dr. Vergara, has an appointment for this Thursday 07/05. - Previously on Jakafi, however no longer taking as her insurance does not cover it. (7) Reflux esophagitis: Plan: - Continue PPI. Plan - anticpate discharge tomorrow if renal function remains stable. - SCDs for VTE ppx, continue home Xarelto, - DNR/DNI. Admission and Anticipated Discharge Date Admission Date: June 30, 2022 Subjective Patient reports feeling better, Patient has no new complaints. NO SOB, or abdominal pain. Review of Systems Review of Systems: All systems reviewed & are unremarkable except as noted in HPI & below Physical Exam Physical Exam: General: awake, alert, cachectic, but no apparent distress Head: Normocephalic, atraumatic ENT: PERRL, EOMI, no pharyngeal exudate, mucous membranes moist Chest: Clear to auscultation, on room air, no adventitious breath sounds Cardiac: Regular rate and rhythm, no murmur, no JVD, normal peripheral pulses, good capillary refill Abdominal: abdomen is distended, firm, TTP along upper abdomen/around diaphragm; NABS x 4 quadrants, otherwise nontender to palpation, no rebound, guarding or tenderness Extremities: b/l lower extremities with 2+ edema; no erythema, calfs nontender to palpation Psych: Normal mood and affect Neuro: AAO x 3, strength intact bilaterally and rated 5/5, no motor deficits, speech is clear, no peripheral sensory deficits Skin: no rash or erythema Results & Data Results & Data ([facility]) Vital Signs (Past 12 Hours) Vital Signs Temp Pulse Resp BP Pulse Ox Pulse Ox O2 Del Method 07/02/22 20:22 36.6 C 74 14 109/62 96 Room Air 07/02/22 18:00 95 07/02/22 16:24 73 108/61 07/02/22 15:43 36.7 C 72 16 113/58 L 94 Room Air O2 Del Method 07/02/22 20:22 07/02/22 18:00 Room Air 07/02/22 16:24 07/02/22 15:43 PG Care Time/CCT Total # of Minutes Spent Total Time Spent with Patient: Total time spent is greater than 50% in coordination of care (as documented) at patient's floor/unit and/or counseling patient: Coding Level of Care Code 19406 Subseq Hosp Care Lvl 3 Diagnoses Ascites R18.8 SOB (shortness of breath) R06.02 RAFIQ (acute kidney injury) N17.9 Advanced cirrhosis of liver K74.60 Leukocytosis D72.829 Myelodysplastic disease C94.6 Reflux esophagitis K21.0 Time Spent (min) 35
[2022-07-03 08:05] VITALS: BP 110/52; TEMP 98.1; O2SAT 97
[2022-07-03] MEDS: SODIUM BICARBONATE 650 MG TAB PO SCH (08:30)
[2022-07-03] MEDS: PROPRANOLOL HCL 10 MG TAB PO SCH (08:30)
[2022-07-03] MEDS: MAGNESIUM OXIDE 400 MG TAB PO SCH (08:30)
[2022-07-03] MEDS: PANTOprazole 40 MG TAB PO SCH (08:30)
[2022-07-03] MEDS: POTASSIUM CHLORIDE 10 MEQ TABCR PO SCH (08:30)
[2022-07-03] MEDS: RIVAROXABAN 10 MG TABLET PO SCH (08:31)
[2022-07-03] MEDS: LIDOCAINE 5% 1 PATCH TD SCH (08:31)
[2022-07-03] MEDS ORDERED: FUROSEMIDE 20 MG TAB PO SCH (09:00)
[2022-07-03] MEDS ORDERED: SPIRONOLACTONE 25 MG TAB PO SCH (09:00)
[2022-07-03 09:22] LABS: Albumin Level 3.1 gm/dl (3.4-5.0); BUN Creatinine Ratio 19.2 (10-20); Calcium 8.6 mg/dl (8.5-10.1); Creatinine Clr Calc Pharmacy 35.7 ml/min; Est GFR (African American) 49.9 ml/min; Phosphorus 2.4 mg/dl (2.5-4.9); Potassium 3.7 mmol/L (3.5-5.1)
--- NOTE | 2022-07-03 10:44 | Nephrology Progress Note ---
Date of Service July 03, 2022 Assessment & Plan (1) RAFIQ (acute kidney injury): (2) Ascites: (3) Anemia: Plan 67 yoF with hepatic cirrhosis, ascites and portal hypertension admitted with Worsening abdominal ascites, abdominal distension respiratory distress and need for paracentesis. Although there is slight variability in creatinine but overall renal function is staying relatively stable with creatinine 1.3-1.4, bicarbonate has been acceptable on oral sodium bicarbonate. Renal function staying relatively stable, electrolyte acceptable. Blood pressure relatively low. -- decrease spironolactone to 25 mg daily and continue on Lasix 20 mg daily as blood pressure has been running low. -- May need another paracentesis prior to discharge as she continues to have significant ascites although not uncomfortable. -- if discharge anticipated, recommend checking lab next week and send result her PCP. -- No further Nephrology workup or follow-up at this time the. Will sign off, thank you for the consult. Admission and Anticipated Discharge Date Admission Date: June 30, 2022 Heriberto Lindo was seen and evaluated this morning. Overall feeling better today, denies abdominal discomfort or shortness of breath. Has persistent lower extremity edema. Started back on spironolactone 50 and continued on Lasix 20 mg daily, blood pressure has been running low. Renal function stable. Review of Systems Review of Systems: Detailed review of system was done and pertinent positives and negatives are mentioned above. Physical Exam Constitutional: WD/WN, vitals as above + ill appearing; no acute distress Eyes: + anicteric sclerae ENMT: Ears: no hearing impairment Neck: normal visual inspection Respiratory: normal respiratory effort; no respiratory distress and no cough Auscultation: lungs clear to auscultation bilaterally Cardiovascular: RRR, no murmur, no edema Rate/Rhythm: regular rate and regular rhythm Heart Sounds: normal S1 and normal S2 Extremities: + edema (2 + b/l LE edema) Gastrointestinal (Abdomen): Inspection/Auscultation: + abdomen distended and normal bowel sounds Percussion/Palpation: + abdomen rigid and + ascites; abdomen nontender and no guarding Musculoskeletal: Extremities: extremities normal to inspection Skin: no rashes Neurologic: no focal motor deficits Psychiatric: Orientation: alert and oriented x 3 Affect: euthymic affect Results & Data ([facility]) Vital Signs (Past 12 Hours) Vital Signs Temp Pulse Resp BP Pulse Ox O2 Del Method 07/03/22 08:04 36.7 C 74 16 110/52 L 97 Room Air PG Care Time/CCT Total # of Minutes Spent Total Time Spent with Patient: Total time spent is greater than 50% in coordination of care (as documented) at patient's floor/unit and/or counseling patient: Coding Level of Care Code 32555 Subseq Hosp Care Lvl 3 Diagnoses RAFIQ (acute kidney injury) N17.9 Ascites R18.8 Anemia D64.9
--- NOTE | 2022-07-03 11:34 | Discharge Summary ---
Date of Service July 03, 2022 Admission HPI Per Admitting Provider Belgica Roy is a 67-year-old female with past medical history significant for cirrhosis with portal hypertension/splenomegaly/gastric varices/ascites, myelodysplastic syndrome, previous PEs, and GERD who presents today with shortness of breath. Patient was discharged on 06/05 and since then has gradually become more short of breath. She has been gaining weight in her abdomen and swelling in her lower legs. She is having pain across her upper abdomen near her ribs, but is otherwise without chest pain. On her last admission she was taken off her diuretics due to syncope and an RAFIQ. She has been very thirsty but has not been urinating much has been retaining fluid in her legs and abdomen Upon presentation, her vital signs are within normal limits and stable. Oxygen saturations are >90% on room air. She has elevated white cell count, however her procalcitonin is normal at 0.50 and lactate of 1.3. Bicarb mildly elevated at 112 otherwise electrolytes are all within normal limits and her renal functio n is at baseline. T bili 2.0, direct bili 0.6, AST 50, ALT 26, alk phos of 378. Urine sample epithelial cells in it, but also with positive nitrates, leuk esterase, WBCs, and bacteria. COVID-negative. Principal Diagnosis Ascites Discharge Exam Constitutional WD/WN, vitals as above Respiratory normal respiratory effort, lungs clear to auscultation Cardiovascular Rate/Rhythm: regular rate and regular rhythm Extremities: + abnormal capillary refill and no calf tenderness Gastrointestinal (Abdomen) Inspection/Auscultation: abdomen normal to inspection and normal bowel sounds; abdomen not distended Percussion/Palpation: + abdomen tender (generalized on palpation only) and abdomen soft Musculoskeletal no cyanosis or clubbing, extremities motor strength 5/5 Skin no rashes, warm and dry Neurologic moves all extremities and awake; not confused Psychiatric A+Ox3, euthymic affect Discharge Data Allergies Allergy/AdvReac Type Severity Reaction Status Date / Time No Known Allergies Allergy Verified 06/30/22 16:55 Consultations 06/30/22 15:40 ED Decision to Admit Stat 06/30/22 18:23 Consult Radiology Routine 07/01/22 12:31 Consult Nephrology Routine Ordered Studies 06/30/22 15:15 CT abd pelvis wo con Stat IMPRESSION: 1. Large amount of ascites which has progressed in the interval. 2. Redemonstration of the diffuse sclerosis of the visualized osseous structures. This may represent the patient's history of a myeloproliferative disorder. 3. Questionable thickening and pericolonic fat stranding within the distal colon. This could be due to the patient's diffuse edematous state or a mild nonspecific colitis. 4. Cirrhotic liver with persistent splenomegaly and perisplenic varices. 5. Cholelithiasis. 6. Additional findings as described above. 07/01/22 12:10 US paracentesis abd w/image Urgent IMPRESSION: Ultrasound-guided paracentesis with removal of 6.4 liters of ascites. 1 L of ascites was sent to the laboratory for analysis as ordered. Hospital Course (1) Ascites: Belgica Roy is a 67 year old female admitted to [facility] from June 30 - 2021 due to shortness of breath. She was diagnosed with abdominal ascites due to liver cirrhosis and recently discontinued diuretics due to syncope and acute kidney injury from diarrheal/UTI illness on last admission in May. She underwent paracentesis with 6.4 L removed. WBC in ascitic fluid did not suggest infection. She was restarted on Lasix 20mg PO daily and spironolactone 25mg PO daily. BMP ordered for 1 week on ThursdayJuly 09 and recommend she followed up with her primary care provider following this for ongoing diuretic adjustments and possible need for further regular paracentesis. (2) SOB (shortness of breath): (3) RAFIQ (acute kidney injury): (4) Advanced cirrhosis of liver: (5) Leukocytosis: (6) Myelodysplastic disease: (7) Reflux esophagitis: Total Time Total Time Spent Total Time Spent (In Minutes): 40 Discharge Plan Discharge Items Patient Disposition: Home - Self-Care Reason For Visit: ASCITES Discharge Diagnosis: Ascites Activity: Resume your previous activity Non-emergency contact: Primary Care Provider Call non-emergency contact if: you have any medication questions Follow-up/Referrals: Shira Yarbrough MD [Primary Care Provider] - 07/10/22 2:00 pm Diet: Low Sodium (2gm) Ambulatory Orders: Basic Metabolic Panel (Routine) Timeframe: [id number] Location: Determined by Patient Ordered By: Vidal Kramer Attending Provider Instructions: You were admitted to [facility] from June 30 - 2021 due to shortness of breath. You were diagnosed with abdominal ascites due to liver cirrhosis and recently discontinued diuretics due to syncope and acute kidney injury from diarrheal/UTI illness. You underwent paracentesis with 6.4 L removed. You were restarted on Lasix 20mg PO daily and spironolactone 25mg PO daily. Please follow up with your primary care provider and fruit cutter for ongoing diuretic adjustments and to discuss possible need for outpatient paracentesis. Please repeat your blood test as ordered before your follow up appointment next Thursday. If you are dizzy or lightheaded please call your primary care provider as your diuretics or propranolol may need readjusting. If you feel your fluid building up in your abdomen and getting more short of breath please call you primary care provider or fruit cutter early to arrange potential outpatient paracentesis. Pending Studies at Discharge: No Stand-Alone Forms: My [facility], Opioid Pain Management, Smoking Cessation Medications and DC Order Prescriptions: New oxycodone 5 mg tablet 5 mg PO Q6H PRN (Reason: pain) Qty: 12 0RF spironolactone 25 mg Tablet 25 mg PO QAM Qty: 30 0RF furosemide 20 mg Tablet 20 mg PO QAM Qty: 30 0RF Continued Xarelto 10 mg tablet 10 mg PO QPM Qty: 90 1RF citalopram [Celexa] 20 mg tablet 30 mg PO HS Qty: 135 1RF 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 40 mg tablet,delayed release (DR/EC) 40 mg PO BID Qty: 180 1RF magnesium oxide 500 mg capsule 500 mg PO DAILY Qty: 30 0RF potassium chloride 10 mEq tablet extended release 10 meq PO BID Qty: 60 0RF cholecalciferol (vitamin D3) [Vitamin D3] 2,000 unit Capsule 2,000 unit PO HS sodium bicarbonate 650 mg Tablet 650 mg PO BID Qty: 60 0RF propranolol 10 mg tablet 10 mg PO BID Qty: 270 1RF Discharge Orders: Discharge Order (Routine); Ordered 07/03/22 Ordered By: Vidal Joel/Other Patient Handouts: Preventing Deep Vein Thrombosis Admission Data Admit Date/Time: 06/30/22 16:00 Attending Provider: Vidal Coleman Admit Provider: Gerardo Hernandez Primary Care Provider: Shira Yarbrough Other Providers: Gerardo Hernandez ; Magali Mcdowell ; Sandi Jeffers ; Erickson Jasmine ; Rai Cassidy ; Benji Salcedo ; Vishnu Dutton ; Nubia Lugo ; Vitaly Goff ; Keron De Jesus ; Hamilton Mathias ; Kyler Uribe ; Dylon Echeverria ; Lory Luong Other Interventions: Discharge Summary Assessment (RN) Last Done: 07/03/22 12:04 Coding Level of Care Code D/C DAY MANAGEMENT >30 MINS Diagnoses Ascites R18.8 SOB (shortness of breath) R06.02 RAFIQ (acute kidney injury) N17.9 Advanced cirrhosis of liver K74.60 Leukocytosis D72.829 Myelodysplastic disease C94.6 Reflux esophagitis K21.0
[2022-07-04] MEDS ORDERED: SPIRONOLACTONE 25 MG TAB PO SCH (09:00)
== END 2022-07-03 14:02 | disposition home or self-care (01) | DRG 432 ==
LOC: ED 12:42 → EDINP 16:00 → SUATTDRO 16:00 → EDINP 17:51 → 3W 19:35